=== PATIENT | female | born 1960 | race Caucasian/White ===

== ENCOUNTER → 2017-09-18 10:13 | Outpatient (CLI) | payer OTHER, SELFPAY ==
[2017-09-18 12:48] LABS: Anion Gap 7 (5-15); BUN 22 mg/dL (7-18); BUN/Creat Ratio 16.7 RATIO (10-20); Calcium,Total 8.7 mg/dL (8.5-10.1); Chloride 108 mmol/L (98-107); Creatinine, Serum 1.32 mg/dL (0.55-1.02); EST Glomerular Filtration Rate 44 mL/min (>60); Est Glom Filt Rate - Afr Amer 53 mL/min (>60); Glucose 91 mg/dL (74-106); Potassium 3.9 mmol/L (3.5-5.1); Sodium Level 142 mmol/L (136-145)
== END ==
PROVIDERS: Family Provider Family Medicine; PCP Family Medicine; Visit Provider Family Medicine
DX: I10 Essential (primary) hypertension (principal)
CPT/HCPCS: 36415; 80048

== ENCOUNTER 2017-10-15 12:45 | Observation (INO) | payer OTHER, SELFPAY ==
[2017-10-15] VITALS (15 sets, daily range): BP systolic 105–155; BP diastolic 59–107; PULSE 85–120; RESP 15–20; TEMP 36.1–36.4; O2SAT 94–98; BMI 38.0; BMI 39.9
--- NOTE | 2017-10-15 13:14 | RAD_ITS ---
STUDY: X-RAY CHEST REASON FOR EXAM: Female, 57 years old. Left-sided chest pain. TECHNIQUE: Single AP portable view of the chest. COMPARISON: Comparison is made with prior study dated May 16, 2017. FINDINGS: EKG electrodes are seen. The lungs are clear and expanded. Scattered calcified granulomas. There is no demonstrated pleural abnormality. Normal size heart. Normal mediastinum and praveen. Normal visualized pulmonary arteries. There is atherosclerotic calcification of the aortic arch with tortuosity. Normal visualized thoracic spine. Prior fusion in the lower cervical spine. There is no demonstrated abnormality of the visualized soft tissue structures of the upper abdomen. RAD/Chest 1 View (Portable) IMPRESSION: No acute abnormality is seen. Electronically Signed: Roger Barker MD at 13:49 EDT Tel [phone], Service support ,
--- NOTE | 2017-10-15 13:14 | EKG12_ITS ---
Test Reason : Blood Pressure : / mmHG Vent. Rate : 089 BPM Atrial Rate : 089 BPM P-R Int : 170 ms QRS Dur : 088 ms QT Int : 406 ms P-R-T Axes : 063 031 037 degrees QTc Int : 493 ms Normal sinus rhythm Prolonged QT Abnormal ECG Confirmed by ILSA BE, BRIAN ([id number]), story editor REINIER PENDLETON ([id number]) on 10/17/2017 3:19:08 PM Referred By: CHARMAINE Confirmed By:BRIAN ROSENBAUM MD
[2017-10-15] MEDS: 0.9% Normal Saline 1,000 ML 150 ML IV ×3 (13:23→21:30)
[2017-10-15] MEDS: Aspirin 81 MG TAB.CHEW 324 MG PO (13:23)
[2017-10-15 13:24] LABS: Absolute Lymphocyte Count 1.94 X10^3/ul (0.83-4.51); Absolute Neutrophil Count 4.2 X10^3/uL (2.0-7.7); Basophil# 0.04 X10^3/uL; Basophil% 0.6 % (0-1); Eosinophils% 1.4 % (0-5); Lymphocyte # 1.94 X10^3/ul (4.0); Lymphocyte % 27.8 % (19-41); Mean Corp Hgb Conc 32.5 g/gl (32-36); Mean Corpuscular Hgb 33.2 pg (27.0-32.0); Mean Platelet Vol. 9.2 fl (6.2-12.0); Monocyte# 0.64 X10^3/uL; Monocyte% 9.2 % (0-10); Neutrophil # 4.22 X10^3/uL (2.7-7.7); Neutrophil % 60.6 % (47-70); Platelet Count 228 K/mm3 (150-450); RBC Distribution Width CV 13.3 % (11.6-14.6); RBC Distribution Width SD 48.9 fl (35.1-43.9); Red Blood Count 3.92 M/mm3 (4.2-5.4)
[2017-10-15 13:25] LABS: POSITIVE COUNT NO; POSITIVE DIFFERENTIAL NO; POSITIVE MORPHOLOGY NO
[2017-10-15 13:39] LABS: Anion Gap 5 (5-15); BUN 14 mg/dL (7-18); BUN/Creat Ratio 10.9 RATIO (10-20); Calcium,Total 8.6 mg/dL (8.5-10.1); Chloride 110 mmol/L (98-107); Creatinine, Serum 1.28 mg/dL (0.55-1.02); EST Glomerular Filtration Rate 46 mL/min (>60); Est Glom Filt Rate - Afr Amer 55 mL/min (>60); Estimated Creatinine Clearance 40.11 ml/min; Glucose 146 mg/dL (74-106); Potassium 3.6 mmol/L (3.5-5.1); Sodium Level 145 mmol/L (136-145)
[2017-10-15 13:41] LABS: D-Dimer Quantitative (DVT/PE) 2.41 FEU/ug/m (0.27-0.49)
--- NOTE | 2017-10-15 13:46 | ED.RN ---
LAB CALLED WITH CRITICAL D-DIMER 2.41. DR. NUNEZ INFORMED OF SAME. NO NEW ORDERS AT THIS TIME.
--- NOTE | 2017-10-15 13:49 | CT_ITS ---
STUDY: CTA CHEST REASON FOR EXAM: Female, 57 years old. One month history of intermittent chest pain. History of COPD and emphysema. RADIATION DOSAGE (If Supplied By Facility): CTDIvol = ( 14.59 ) mGy, DLP = ( 643.52 ) mGycm TECHNIQUE: The examination was performed with the intravenous administration of 100CC ml of Isovue 370 contrast material. Post-processing of the angiographic images was performed, with multiplanar reformation and 3D reconstruction. Individualized dose optimization techniques were used for this CT. COMPARISON: Comparison is made with prior examination dated February 03, 2014. FINDINGS: Normal enhancement of the main pulmonary artery and right and left pulmonary arteries. Normal enhancement of the bilateral peripheral pulmonary arteries. There is no demonstrated pulmonary embolism. Normal thoracic aorta and visualized great vessels. There is no demonstrated aortic dissection. Normal heart and pericardium. Normal mediastinum. Normal hilar regions. Normal visualized trachea and bronchi. The lungs are well expanded. There is a 1.9 cm bulla in the posterior aspect of the right middle lobe. This also evidence of a 2.1 cm bulla in the superior aspect of the right lower lobe. A 2.7 cm bulla is seen in the lateral aspect of the right lower lobe as well as several smaller bulla seen in the right lower lobe. Normal pleura. Normal chest wall structures. There are degenerative changes of thoracic spine. Small hiatal hernia. CT/CTA Chest W/WO Contrast IMPRESSION: Bolus changes in the right lung. No acute abnormality is seen. Electronically Signed: Roger Barker MD at 14:56 EDT Tel [phone], Service support ,
--- NOTE | 2017-10-15 15:18 | EKG12_ITS ---
Test Reason : Blood Pressure : / mmHG Vent. Rate : 105 BPM Atrial Rate : 105 BPM P-R Int : 152 ms QRS Dur : 088 ms QT Int : 370 ms P-R-T Axes : 063 049 054 degrees QTc Int : 489 ms Sinus tachycardia Otherwise normal ECG Confirmed by ILSA BE, BRIAN ([id number]), video tape editor REINIER PENDLETON ([id number]) on 10/17/2017 3:29:08 PM Referred By: CHARMAINE Confirmed By:BRIAN ROSENBAUM MD
--- NOTE | 2017-10-15 15:18 | ED.VISSUMM ---
- ER Visit Summary Date of Service: 10/15/17 Chief Complaint: [Chest pain] History of Present Illness: The patient is a 57 F [presents to the emergency department with chief complaint of chest pain that started about a month ago. Patient's been having discomfort intermittently. Patient describes a sharp pain in her left chest that radiates into her left arm and into the left back by her shoulder blade. Patient at times feel short of breath with it and gets diaphoretic. Patient currently rates her pain an 8 out of 10. Patient has not had pain like this before. She denies recent travel or surgery.] Physical Examination: [HEENT-PERRLA, EOMI. Cranial nerves II through XII grossly intact. TMs clear. Mucous membranes moist. No adenopathy. Cardiovascular-regular rate and rhythm without murmur or ectopy Lungs-clear to auscultation, chest wall stable without crepitus or subcu emphysema Abdomen-normoactive bowel sounds, soft, nontender, no rebound or rigidity, no peritoneal signs. Extremities-intact ?4, normal range of motion, normal pulses, atraumatic] Test Results: [EKG obtained on arrival showed a sinus tachycardia with a ventricular rate of 105 bpm with no acute ST segment changes. CBC with differential showed a white blood cell count of 7.0, hemoglobin 13, hematocrit 40, platelets 228. History is unremarkable. Troponin was less than 0.02. D-dimer was elevated 2.41. Chest x-ray showed nothing acute. CTA of the chest showed bullous changes in the right lung otherwise nothing acute. There was no evidence of PE or dissection.] Emergency Department Course and Treatment: [Patient given aspirin in the emergency department as well as sublingual nitroglycerin which gave her minimal relief. Patient had an inch of Nitropaste placed to the anterior chest wall. A repeat EKG will be obtained.] Treatment Plan: [Admit] Disposition: [Admit for further workup and evaluation] Impression: [Chest pain-rule out acute coronary syndrome] This note was generated with [employer] dictation software. It may contain incorrect words, spelling, and punctuation that were not noted in review of the chart prior to signing ED Disposition - Plan for ED Patient: Chief Complaint: Chest Pain Referrals: Hua Mosher MD [Primary Care Provider] -
--- NOTE | 2017-10-15 15:21 | ED.DCSUM_ITS ---
- ER Visit Summary Date of Service: 10/15/17 Chief Complaint: [Chest pain] History of Present Illness: The patient is a 57 F [presents to the emergency department with chief complaint of chest pain that started about a month ago. Patient's been having discomfort intermittently. Patient describes a sharp pain in her left chest that radiates into her left arm and into the left back by her shoulder blade. Patient at times feel short of breath with it and gets diaphoretic. Patient currently rates her pain an 8 out of 10. Patient has not had pain like this before. She denies recent travel or surgery.] Physical Examination: [HEENT-PERRLA, EOMI. Cranial nerves II through XII grossly intact. TMs clear. Mucous membranes moist. No adenopathy. Cardiovascular-regular rate and rhythm without murmur or ectopy Lungs-clear to auscultation, chest wall stable without crepitus or subcu emphysema Abdomen-normoactive bowel sounds, soft, nontender, no rebound or rigidity, no peritoneal signs. Extremities-intact ?4, normal range of motion, normal pulses, atraumatic] Test Results: [EKG obtained on arrival showed a sinus tachycardia with a ventricular rate of 105 bpm with no acute ST segment changes. CBC with differential showed a white blood cell count of 7.0, hemoglobin 13, hematocrit 40, platelets 228. History is unremarkable. Troponin was less than 0.02. D- dimer was elevated 2.41. Chest x-ray showed nothing acute. CTA of the chest showed bullous changes in the right lung otherwise nothing acute. There was no evidence of PE or dissection.] Emergency Department Course and Treatment: [Patient given aspirin in the emergency department as well as sublingual nitroglycerin which gave her minimal relief. Patient had an inch of Nitropaste placed to the anterior chest wall. A repeat EKG will be obtained.] Treatment Plan: [Admit] Disposition: [Admit for further workup and evaluation] Impression: [Chest pain-rule out acute coronary syndrome] This note was generated with [employer] dictation software. It may contain incorrect words, spelling, and punctuation that were not noted in review of the chart prior to signing ED Disposition - Plan for ED Patient: Chief Complaint: Chest Pain Referrals: Hua Mosher MD [Primary Care Provider] -
--- NOTE | 2017-10-15 15:52 | PCM.HP.STD ---
<Neri Mills - Last Filed: 10/15/17 15:56> Problem List (1) Chest pain Status: Acute (2) COPD (chronic obstructive pulmonary disease) Status: Chronic (3) Anxiety Status: Chronic (4) Hyperlipidemia Status: Chronic (5) Hypertension Status: Chronic (6) Obesity (BMI 30-39.9) Status: Chronic (7) Diabetes mellitus, type II Status: Chronic (8) Chronic back pain Status: Chronic (9) CKD (chronic kidney disease) stage 3, GFR 30-59 ml/min Status: Chronic History of Present Illness Date of Admission: 10/15/17 Chief Complaint: chest pain The patient is a 57 year old F who presented to the ED with a chief complaint of chest pain. She has a hx concerning for HTN, DMt2, HLD, emphysema, obesity, and is a former heavy smoker. She has been having intermittent chest pain for the last month, however today it was significantly worse. It is been off and on all day. She describes it as a 8 out of 10 chest pressure located across the left side of her chest with radiation into her back and left arm. It was relieved with nitro from an 8 out of 10 to a 6 out of 10 in the ER. She does have associated shortness of breath, and this morning when he came on she broke out in a sweat. She denied nausea or vomiting. She notes that she is short of breath with activity, chest pain is worse with activity, relieved with rest. She has no prior coronary disease, she last had a stress test 2 years ago prior to her hiatal hernia which was negative. Patient quit smoking approximately 80 days ago, however smoked 1-1/2 packs per day for her whole life since being a teenager. She is currently still having chest pain in the ER. She does not follow with cardiology. She also notes swelling of both of her legs. Father had hx of CAD and ME, mother had severe HTN. She has CKD for which she follows Dr. Cohen. [] Past Medical History Past Medical History (Chronic Problems): Chronic Problems COPD (chronic obstructive pulmonary disease) (Chronic) Anxiety (Chronic) Hyperlipidemia (Chronic) Tobacco use (Chronic) on chantix Hypertension (Chronic) Obesity (BMI 30-39.9) (Chronic) Diabetes mellitus, type II (Chronic) Chronic back pain (Chronic) CKD (chronic kidney disease) stage 3, GFR 30-59 ml/min (Chronic) Allergies No Known Allergies Allergy (Verified 05/16/17 19:08) Home Medications: Ambulatory Orders Medication Instructions Recorded Cholecalciferol (VIT D3) [Vitamin 1,000 unit PO DAILY 10/08/15 D3] Gabapentin [Neurontin] 100 mg PO 4X/DAY 10/08/15 Lisinopril [Zestril] 5 mg PO DAILY 10/08/15 Simvastatin [Zocor] 20 mg PO QHS 10/08/15 Tizanidine HCl 4 mg PO QHS 10/08/15 Trazodone HCl 200 mg PO QHS 08/23/16 Furosemide [Lasix] 20 mg PO DAILY 12/07/16 Hydrocodone Bitart/Apap 5-325 2 tablet PO Q6H PRN PRN 04/23/17 [[place] 5MG-325MG] Hydrocodone Bit/Homatropine 5 ml GT Q6H PRN PRN #20 udc 05/07/17 [Hycodan Syrup] Duloxetine Hcl [Cymbalta] 60 mg PO DAILY 10/15/17 Linagliptin [Tradjenta] 5 mg PO DAILY 10/15/17 Meloxicam [Mobic] 15 mg PO DAILY 10/15/17 Surgical History: - - Cervical spine surgery, BLTL, L shoulder surgery, R heel spur removal, hiatal hernia repair with mesh Psychiatric History: Anxiety, Depression 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 Denies: Chest Tightness, Heaviness, Light Headedness, Palpitations, Syncope Respiratory: Reports: Shortness of Breath, Shortness of breath at rest, Shortness of breath upon exertion. Denies: Cough, Sputum production Gastrointestinal: Denies: Abdominal Pain, Nausea, Vomiting Genitourinary: Denies: Dysuria Musculoskeletal: Denies: Joint Pain, Joint Tenderness Skin: Denies: Rash, Wounds Neurological: Denies: Numbness, Tingling, Focal weakness Psychiatric: Denies: Anxiety, Depression, Homicidal Ideations, Suicidal Ideations Hematologic/ Lymphatic: Denies: Easy Bruising, Easy Bleeding VTE Information - Inpt Only VTE Present on Admission: No VTE Mechan Device Prophylaxis: SCD's VTE Pharm Prophylaxis ordered?: Yes Patient Problems: Active and Suspected Problems Chest pain (Acute) - Physical Exam General: Alert, Oriented x3, Cooperative HEENT: Atraumatic, PERRLA, EOMI, Normocephalic Neck: Supple, No JVD, Negative Carotid Bruits Lungs: Clear to auscultation, Normal air movement Cardiovascular: Regular rate, No murmurs Abdomen: Bowel Sounds Present, Soft, Non Tender, Obese Extremities: Capillary Refill Less than 3 Seconds, Edema - 1-2+ pitting edema bilateral lower extremities Skin: No rashes, No breakdown Musculoskeletal: No Tenderness to Palpation of Joints or Extremities Neurological: Cranial nerves II-XII grossly intact Psych/Mental Status: Normal Affect, Appropriate Vital Signs Temp Pulse Resp BP Pulse Ox 97 F L 85 16 105/75 97 10/15/17 12:46 10/15/17 14:24 10/15/17 14:24 10/15/17 14:24 10/15/17 14:24 Assessment/Plan Active and Suspected Problems Chest pain (Acute) 1. Chest pain - EKG with sinus tach. Troponin and CXR neg. D dimer elevated, CTA negative for PE. Risk factors include HTN, HLD, obesity, DMt2, heavy smoking hx, + family hx, and a concerning HPI. Admit to PCU for cardiac monitoring, cycle troponin, chemical stress test in AM repeat AM EKG, check TSH and mag, check A1C. 2. BLE edema with elevated D dimer - venous duplex to r/o DVT. CTA neg for PE. 3. DMt2 - check A1C, SSI. Hold orals. 4. Hx Emphysema - CTA with bulla. PRN aerosols. 5. CKDIII - trend, avoid nephrotoxins. Follows Dr. Cohen with [facility]. 6. Obesity - dietary consult 7. Former smoker - quit 80 days ago - smoked about 1.5 ppd, smoked since teenager 8. HLD - on statin 9. Anxiety - continue home meds 10. Chronic back pain - continue home meds DVT ppx: heparin This patient was seen by Neri Mills PA-C under the supervision of Doctor Al. <JohnathanhenryWong - Last Filed: 10/15/17 16:14> History of Present Illness The patient is a 57 year old F [] Past Medical History Allergies No Known Allergies Allergy (Verified 05/16/17 19:08) - Physical Exam Vital Signs Temp Pulse Resp BP Pulse Ox 97 F L 97 16 126/100 H 97 10/15/17 12:46 10/15/17 16:03 10/15/17 14:24 10/15/17 16:03 10/15/17 14:24 Assessment/Plan Hospitalist note: I am seeing this patient in conjunction with Neri Mills. I independently seen and examined the patient. History and physical, laboratory data and imaging studies reviewed and I agree with above admission and treatment plan. Patient was admitted for exertional chest pain or shortness of breath that has been going on for the last month. It got worse over the last couple of days, relieved by nitro in the emergency room. At this time, her vital signs are stable. - Physical Exam General: Alert, Oriented x3, Cooperative, No apparent distress. HEENT: Atraumatic, PERRLA, EOMI. Neck: Supple, No JVD, Negative Carotid Bruits, Trachea Midline, Thyroid Normal. Lungs: Diminished breath sounds bilateral, normal air movement, No rhonchi, No wheeze, No rales. Cardiovascular: Regular rate, Regular Rhythm, Normal S1, Normal S2, PMI Normal. Abdomen: Bowel Sounds Present, Soft, Non Tender, Non-Distended, No Hepato-splenomegaly. Extremities: No clubbing, No cyanosis, No edema Skin: No rashes, No breakdown Neurological: Neuro grossly intact Vital Signs are stable. Assessment and plan: #1 exertional chest pain/shortness of breath: With history of hypertension, diabetes and hyperlipidemia as well as history of smoking. Initial EKG revealed normal sinus rhythm, prolonged QTC, no acute ischemic changes. Troponin is negative. Chest x-ray and CTA chest was unremarkable. Plan: Admit to PCU for observation, cardiac monitoring, serial cardiac enzymes, repeat EKG tomorrow morning, nuclear stress test tomorrow morning if cardiac enzymes are negative. #2 elevated d-dimer: Unclear etiology, CTA chest was negative for PE or dissection. #3 other chronic medical problems: Hypertension, diabetes, hyperlipidemia, continue home medications as above. This note was generated with [employer] software. It may contain incorrect words, spelling, and punctuation that were not noted in checking the note before signing. Code Visit OBSV E&M: 33010 Initial observation care L3
--- NOTE | 2017-10-15 15:55 | HP.PCM_ITS ---
<Neri Mills - Last Filed: 10/15/17 15:56> Problem List (1) Chest pain Status: Acute (2) COPD (chronic obstructive pulmonary disease) Status: Chronic (3) Anxiety Status: Chronic (4) Hyperlipidemia Status: Chronic (5) Hypertension Status: Chronic (6) Obesity (BMI 30-39.9) Status: Chronic (7) Diabetes mellitus, type II Status: Chronic (8) Chronic back pain Status: Chronic (9) CKD (chronic kidney disease) stage 3, GFR 30-59 ml/min Status: Chronic History of Present Illness Date of Admission: 10/15/17 Chief Complaint: chest pain The patient is a 57 year old F who presented to the ED with a chief complaint of chest pain. She has a hx concerning for HTN, DMt2, HLD, emphysema, obesity, and is a former heavy smoker. She has been having intermittent chest pain for the last month, however today it was significantly worse. It is been off and on all day. She describes it as a 8 out of 10 chest pressure located across the left side of her chest with radiation into her back and left arm. It was relieved with nitro from an 8 out of 10 to a 6 out of 10 in the ER. She does have associated shortness of breath, and this morning when he came on she broke out in a sweat. She denied nausea or vomiting. She notes that she is short of breath with activity, chest pain is worse with activity, relieved with rest. She has no prior coronary disease, she last had a stress test 2 years ago prior to her hiatal hernia which was negative. Patient quit smoking approximately 80 days ago, however smoked 1-1/2 packs per day for her whole life since being a teenager. She is currently still having chest pain in the ER. She does not follow with cardiology. She also notes swelling of both of her legs. Father had hx of CAD and VA, mother had severe HTN. She has CKD for which she follows Dr. Cohen. [] Past Medical History Past Medical History (Chronic Problems): Chronic Problems COPD (chronic obstructive pulmonary disease) (Chronic) Anxiety (Chronic) Hyperlipidemia (Chronic) Tobacco use (Chronic) on chantix Hypertension (Chronic) Obesity (BMI 30-39.9) (Chronic) Diabetes mellitus, type II (Chronic) Chronic back pain (Chronic) CKD (chronic kidney disease) stage 3, GFR 30-59 ml/min (Chronic) Allergies No Known Allergies Allergy (Verified 05/16/17 19:08) Home Medications: Ambulatory Orders Medication Instructions Recorded Cholecalciferol (VIT D3) [Vitamin 1,000 unit PO DAILY 10/08/15 D3] Gabapentin [Neurontin] 100 mg PO 4X/DAY 10/08/15 Lisinopril [Zestril] 5 mg PO DAILY 10/08/15 Simvastatin [Zocor] 20 mg PO QHS 10/08/15 Tizanidine HCl 4 mg PO QHS 10/08/15 Trazodone HCl 200 mg PO QHS 08/23/16 Furosemide [Lasix] 20 mg PO DAILY 12/07/16 Hydrocodone Bitart/Apap 5-325 2 tablet PO Q6H PRN PRN 04/23/17 [[place] 5MG-325MG] Hydrocodone Bit/Homatropine 5 ml GT Q6H PRN PRN #20 udc 05/07/17 [Hycodan Syrup] Duloxetine Hcl [Cymbalta] 60 mg PO DAILY 10/15/17 Linagliptin [Tradjenta] 5 mg PO DAILY 10/15/17 Meloxicam [Mobic] 15 mg PO DAILY 10/15/17 Surgical History: - - Cervical spine surgery, BLTL, L shoulder surgery, R heel spur removal, hiatal hernia repair with mesh Psychiatric History: Anxiety, Depression 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 Denies: Chest Tightness, Heaviness, Light Headedness, Palpitations, Syncope Respiratory: Reports: Shortness of Breath, Shortness of breath at rest, Shortness of breath upon exertion. Denies: Cough, Sputum production Gastrointestinal: Denies: Abdominal Pain, Nausea, Vomiting Genitourinary: Denies: Dysuria Musculoskeletal: Denies: Joint Pain, Joint Tenderness Skin: Denies: Rash, Wounds Neurological: Denies: Numbness, Tingling, Focal weakness Psychiatric: Denies: Anxiety, Depression, Homicidal Ideations, Suicidal Ideations Hematologic/ Lymphatic: Denies: Easy Bruising, Easy Bleeding VTE Information - Inpt Only VTE Present on Admission: No VTE Mechan Device Prophylaxis: SCD's VTE Pharm Prophylaxis ordered?: Yes Patient Problems: Active and Suspected Problems Chest pain (Acute) - Physical Exam General: Alert, Oriented x3, Cooperative HEENT: Atraumatic, PERRLA, EOMI, Normocephalic Neck: Supple, No JVD, Negative Carotid Bruits Lungs: Clear to auscultation, Normal air movement Cardiovascular: Regular rate, No murmurs Abdomen: Bowel Sounds Present, Soft, Non Tender, Obese Extremities: Capillary Refill Less than 3 Seconds, Edema - 1-2+ pitting edema bilateral lower extremities Skin: No rashes, No breakdown Musculoskeletal: No Tenderness to Palpation of Joints or Extremities Neurological: Cranial nerves II-XII grossly intact Psych/Mental Status: Normal Affect, Appropriate Vital Signs Temp Pulse Resp BP Pulse Ox 97 F L 85 16 105/75 97 10/15/17 12:46 10/15/17 14:24 10/15/17 14:24 10/15/17 14:24 10/15/17 14:24 Assessment/Plan Active and Suspected Problems Chest pain (Acute) 1. Chest pain - EKG with sinus tach. Troponin and CXR neg. D dimer elevated, CTA negative for PE. Risk factors include HTN, HLD, obesity, DMt2, heavy smoking hx, + family hx, and a concerning HPI. Admit to PCU for cardiac monitoring, cycle troponin, chemical stress test in AM repeat AM EKG, check TSH and mag, check A1C. 2. BLE edema with elevated D dimer - venous duplex to r/o DVT. CTA neg for PE. 3. DMt2 - check A1C, SSI. Hold orals. 4. Hx Emphysema - CTA with bulla. PRN aerosols. 5. CKDIII - trend, avoid nephrotoxins. Follows Dr. Cohen with [facility]. 6. Obesity - dietary consult 7. Former smoker - quit 80 days ago - smoked about 1.5 ppd, smoked since teenager 8. HLD - on statin 9. Anxiety - continue home meds 10. Chronic back pain - continue home meds DVT ppx: heparin This patient was seen by Neri Mills PA-C under the supervision of Doctor lA. <JohnathanhenryWong - Last Filed: 10/15/17 16:14> History of Present Illness The patient is a 57 year old F [] Past Medical History Allergies No Known Allergies Allergy (Verified 05/16/17 19:08) - Physical Exam Vital Signs Temp Pulse Resp BP Pulse Ox 97 F L 97 16 126/100 H 97 10/15/17 12:46 10/15/17 16:03 10/15/17 14:24 10/15/17 16:03 10/15/17 14:24 Assessment/Plan Hospitalist note: I am seeing this patient in conjunction with Neri Mills. I independently seen and examined the patient. History and physical, laboratory data and imaging studies reviewed and I agree with above admission and treatment plan. Patient was admitted for exertional chest pain or shortness of breath that has been going on for the last month. It got worse over the last couple of days, relieved by nitro in the emergency room. At this time, her vital signs are stable. - Physical Exam General: Alert, Oriented x3, Cooperative, No apparent distress. HEENT: Atraumatic, PERRLA, EOMI. Neck: Supple, No JVD, Negative Carotid Bruits, Trachea Midline, Thyroid Normal. Lungs: Diminished breath sounds bilateral, normal air movement, No rhonchi, No wheeze, No rales. Cardiovascular: Regular rate, Regular Rhythm, Normal S1, Normal S2, PMI Normal. Abdomen: Bowel Sounds Present, Soft, Non Tender, Non-Distended, No Hepato- splenomegaly. Extremities: No clubbing, No cyanosis, No edema Skin: No rashes, No breakdown Neurological: Neuro grossly intact Vital Signs are stable. Assessment and plan: #1 exertional chest pain/shortness of breath: With history of hypertension, diabetes and hyperlipidemia as well as history of smoking. Initial EKG revealed normal sinus rhythm, prolonged QTC, no acute ischemic changes. Troponin is negative. Chest x-ray and CTA chest was unremarkable. Plan: Admit to PCU for observation, cardiac monitoring, serial cardiac enzymes, repeat EKG tomorrow morning, nuclear stress test tomorrow morning if cardiac enzymes are negative. #2 elevated d-dimer: Unclear etiology, CTA chest was negative for PE or dissection. #3 other chronic medical problems: Hypertension, diabetes, hyperlipidemia, continue home medications as above. This note was generated with shopandsaveation software. It may contain incorrect words, spelling, and punctuation that were not noted in checking the note before signing. Code Visit OBSV E&M: 11896 Initial observation care L3
[2017-10-15] MEDS: fentaNYL 100 MCG/2 ML Ampul 25 MCG IV (15:59)
[2017-10-15] MEDS: Nitroglycerin Oint 1 INCH PACKET TRANSDERM. (15:59)
--- NOTE | 2017-10-15 16:12 | VDLE_ITS ---
Reason For Study: elevated D-Dimer RIGHT LEFT GSV is normal. GSV is normal. CFV is compressible, spontaneous, phasic, CFV is compressible, spontaneous, phasic, competent and demonstrates normal competent, and demonstrates normal augmentation. augmentation. FV is compressible, spontaneous, phasic, FV is compressible, spontaneous, phasic, competent and demonstrates normal competent and demonstrates normal augmentation. augmentation. POP V is compressible, spontaneous, phasic, POP V is compressible, spontaneous, phasic, competent and demonstrates normal competent and demonstrates normal augmentation. augmentation. T/P Trunk is compressible. T/P Trunk is compressible. PTV is compressible. PTV is compressible. RT PerV is compressible. LT PerV is compressible. Procedure Exam performed portable in patient room. The exam was diagnostic. A preliminary report was called and/or faxed to Hanane RODRIGUEZ. Interpretation Summary No evidence for acute deep venous thrombosis bilateral lower extremities with patent and compressible bilateral great saphenous veins. Ordering Physician: Neri Mills Performed By: Gatito Alvarez RVT
[2017-10-15 17:05] LABS: Magnesium 1.9 mg/dL (1.6-2.6); Thyroid Stim Hormone (TSH) 1.08 uIU/mL (0.358-3.74)
[2017-10-15 17:24] LABS: Hemoglobin A1c 6.6 % (4.2-6.3)
[2017-10-15 17:46] LABS: Bedside Glucose 137 mg/dL (70-110)
[2017-10-15] MEDS: Heparin Injection 5,000 UNITS/ML Syringe 5000 UNITS SC (21:43)
[2017-10-15 22:56] LABS: Bedside Glucose 130 mg/dL (70-110)
[2017-10-16] VITALS (7 sets, daily range): BP systolic 101–137; BP diastolic 58–83; PULSE 80–97; RESP 12–18; TEMP 36.4–36.8; O2SAT 95–96
[2017-10-16] MEDS: Gabapentin 100 MG Capsule PO ×3 (00:29→11:01)
[2017-10-16] MEDS: tiZANidine HCl 2 MG Tablet 4 MG PO (00:29)
[2017-10-16] MEDS: Atorvastatin Calcium 10 MG Tablet PO (00:29)
--- NOTE | 2017-10-16 03:28 | NURSING ---
Pt complaining that CP is worse. RN called RT Madeleine to request AM EKG be taken early.
[2017-10-16 04:52] LABS: Cholesterol 115 mg/dL (200); High Density Lipoprotein 43 mg/dL; Triglycerides 101 mg/dL; Very Low Density Lipoprotein 20 mg/dL (5-40)
[2017-10-16] MEDS: Aspirin 81 MG TAB.CHEW PO (05:39)
--- NOTE | 2017-10-16 05:55 | EKG12_ITS ---
Test Reason : CP Blood Pressure : / mmHG Vent. Rate : 088 BPM Atrial Rate : 088 BPM P-R Int : 158 ms QRS Dur : 086 ms QT Int : 396 ms P-R-T Axes : 066 048 054 degrees QTc Int : 479 ms Normal sinus rhythm Normal ECG When compared with ECG of 15-OCT-2017 15:35, MANUAL COMPARISON REQUIRED, DATA IS UNCONFIRMED Confirmed by ILSA BE, BRIAN ([id number]), general expeditor REINIER PENDLETON ([id number]) on 10/19/2017 1:54:42 PM Referred By: CAROLYNE Confirmed By:BRIAN ROSENBAUM MD
[2017-10-16 06:35] LABS: Absolute Lymphocyte Count 2.14 X10^3/ul (0.83-4.51); Absolute Neutrophil Count 3.2 X10^3/uL (2.0-7.7); Basophil# 0.03 X10^3/uL; Basophil% 0.5 % (0-1); Eosinophil# 0.11 X10^3/uL; Eosinophils% 1.8 % (0-5); Hematocrit 37.6 % (37-47); Hemoglobin 11.6 g/dl (12.0-15.0); Lymphocyte # 2.14 X10^3/ul (4.0); Lymphocyte % 35.5 % (19-41); Mean Corp Hgb Conc 30.9 g/gl (32-36); Mean Corpuscular Hgb 31.8 pg (27.0-32.0); Mean Platelet Vol. 9.8 fl (6.2-12.0); Monocyte# 0.54 X10^3/uL; Neutrophil # 3.18 X10^3/uL (2.7-7.7); Neutrophil % 52.9 % (47-70); Platelet Count 209 K/mm3 (150-450); RBC Distribution Width CV 13.8 % (11.6-14.6); RBC Distribution Width SD 51.7 fl (35.1-43.9); Red Blood Count 3.65 M/mm3 (4.2-5.4)
[2017-10-16 06:37] LABS: POSITIVE COUNT NO; POSITIVE DIFFERENTIAL NO; POSITIVE MORPHOLOGY NO
[2017-10-16 06:40] LABS: Prothrombin Time (Protime)PT. 13.3 SECONDS (11.7-14.9)
[2017-10-16 06:41] LABS: Partial Thromboplast Time 29.2 Seconds (24.1-36.2)
[2017-10-16 06:53] LABS: Anion Gap 6 (5-15); BUN 11 mg/dL (7-18); BUN/Creat Ratio 9.3 RATIO (10-20); Chloride 115 mmol/L (98-107); Creatinine, Serum 1.18 mg/dL (0.55-1.02); EST Glomerular Filtration Rate 50 mL/min (>60); Est Glom Filt Rate - Afr Amer 61 mL/min (>60); Estimated Creatinine Clearance 43.51 ml/min; Glucose 127 mg/dL (74-106); Potassium 4.2 mmol/L (3.5-5.1); Sodium Level 150 mmol/L (136-145)
[2017-10-16 07:06] LABS: Bedside Glucose 142 mg/dL (70-110)
[2017-10-16] MEDS: HYDROcodone Bitartrate/Apap 5/325 Tablet PO (10:59)
[2017-10-16 11:21] LABS: Bedside Glucose 92 mg/dL (70-110)
--- NOTE | 2017-10-16 12:40 | STRESSREP ---
Stress Test Report Pharmacologic myocardial perfusion stress test. 57-year-old lady with a history of chest pain. Stress protocol: Resting EKG demonstrates normal sinus rhythm with a rate of 81 bpm. Normal intervals noted. Resting blood pressure is 112/74 mmHg. 0.4 mg of regadenoson was infused per usual protocol followed by rapid intravenous saline flush injection. Continuous EKG monitoring was performed. At rest there were no ST or T-wave changes noted suggest abnormal flow reserve and at peak infusion no ST or T-wave changes were noted suggest abnormal flow reserve. The resting blood pressure is 112/74 with a final blood pressure 110/78. No clinical angina was noted. Myocardial perfusion protocol. 14.8 mCi of technetium 99m sestamibi was injected at rest. 0.4 mg of adenosine was infused per usual protocol peak infusion 44.5 mCi of technetium 99m sestamibi was injected. Stress images were obtained stress and rest images were reconstructed and compared in the short axis vertical long and horizontal long axis. Gated images were also obtained. Fusion SPECT analysis: Review of the stress images demonstrate normal uptake of tracer noted in all areas of the myocardium. The resting images similarly demonstrate normal uptake of tracer noted in all areas of the myocardium. No areas of reversibility are noted suggest ischemia and no previous infarct is noted. Gated SPECT analysis: The gated ejection fraction is noted to be 70%. Conclusion: Normal pharmacologic myocardial perfusion stress test. Preserved ejection fraction.
[2017-10-16] MEDS: Gabapentin 300 MG Capsule PO (16:09)
[2017-10-16 16:50] LABS: Bedside Glucose 111 mg/dL (70-110)
--- NOTE | 2017-10-16 17:33 | PCM.DC ---
- Discharge Diagnoses Current Active Problems: Current Active and Chronic Problems Chest pain (Acute) You will use the following diet at home:: Calorie/Carbohydrate Controlled (specify 1200, 1400, etc), Cardiac Your food should be the consistency of: Regular Your liquids should be the consistency of: Regular/Thin Discharge Activity: Return to Normal Activity, May not drive while taking narcotic pain medications. Lifting Restrictions: Do not lift more than 5 pounds. Do not lift anything above your head. Ext Call your doctor if you observe: Fever of 101 or Higher, Inability to urinate, Inability to have a bowel movement, Swelling in the ankles, - - weakness in your arms, worsening pain despite medication Additional Instructions: I think the pain in the upper left chest and the left arm is due to nerve compression. Conservative treatment options include, physical therapy, a short course of Prednisone to decrease inflammation, and epidural injection, increasing the Gabapentin and muscle relaxation. Since you do not want prednisone and you feel the epidurals don't help and you are already on a muscle relaxer that leaves increasing the Gabapentin and phsical therapy. I have changed the dose of the Gabapentin to 300 mg Twice a day and 600 mg at bedtime. I am also giving you a referral for PT. Keep your appt with Dr. Jauregui on sunday and if things do not get better with conservative treatment you will likely need a MRI and return visit to Dr. Han. Allergies/Adverse Reactions: Allergies No Known Allergies Allergy (Verified 05/16/17 19:08) Medications to take at Discharge Cholecalciferol (VIT D3) [Vitamin D3] 1,000 unit PO DAILY 10/08/15 Lisinopril [Zestril] 5 mg PO DAILY 10/08/15 Simvastatin [Zocor] 20 mg PO QHS 10/08/15 Tizanidine HCl 4 mg PO QHS 10/08/15 Trazodone HCl 200 mg PO QHS 08/23/16 Furosemide [Lasix] 20 mg PO DAILY 12/07/16 Hydrocodone Bitart/Apap 5-325 [[place] 5/325] 0.5 - 2 tablet PO Q6H PRN PRN 04/23/17 Bisacodyl [Dulcolax] 5 mg PO DAILY PRN 10/15/17 Duloxetine Hcl [Cymbalta] 60 mg PO DAILY 10/15/17 Linagliptin [Tradjenta] 5 mg PO DAILY 10/15/17 Meloxicam [Mobic] 7.5 mg PO DAILY 10/15/17 Gabapentin [Neurontin] 300 mg PO UD #120 cap 10/16/17 The following prescriptions were given: Gabapentin [Neurontin] 300 mg PO UD #120 cap Primary Care Physician: Hua Mosher MD [Primary Care Provider] - Please follow up with your Primary Care Physician in: 7-10 days Please Follow Up With: Adair Jauregui MD When: has appt Sunday Please Follow Up With: Ruby Han MD When: as needed if the pain in the left arm does not get better Proposed Discharge Date: 10/16/17
--- NOTE | 2017-10-16 17:44 | DCINST_ITS ---
- Discharge Diagnoses Current Active Problems: Current Active and Chronic Problems Chest pain (Acute) You will use the following diet at home:: Calorie/Carbohydrate Controlled ( specify 1200, 1400, etc), Cardiac Your food should be the consistency of: Regular Your liquids should be the consistency of: Regular/Thin Discharge Activity: Return to Normal Activity, May not drive while taking narcotic pain medications. Lifting Restrictions: Do not lift more than 5 pounds. Do not lift anything above your head. Ext Call your doctor if you observe: Fever of 101 or Higher, Inability to urinate, Inability to have a bowel movement, Swelling in the ankles, - - weakness in your arms, worsening pain despite medication Additional Instructions: I think the pain in the upper left chest and the left arm is due to nerve compression. Conservative treatment options include, physical therapy, a short course of Prednisone to decrease inflammation, and epidural injection, increasing the Gabapentin and muscle relaxation. Since you do not want prednisone and you feel the epidurals don't help and you are already on a muscle relaxer that leaves increasing the Gabapentin and phsical therapy. I have changed the dose of the Gabapentin to 300 mg Twice a day and 600 mg at bedtime. I am also giving you a referral for PT. Keep your appt with Dr. Jauregui on sunday and if things do not get better with conservative treatment you will likely need a MRI and return visit to Dr. Han. Allergies/Adverse Reactions: Allergies No Known Allergies Allergy (Verified 05/16/17 19:08) Medications to take at Discharge Cholecalciferol (VIT D3) [Vitamin D3] 1,000 unit PO DAILY 10/08/15 Lisinopril [Zestril] 5 mg PO DAILY 10/08/15 Simvastatin [Zocor] 20 mg PO QHS 10/08/15 Tizanidine HCl 4 mg PO QHS 10/08/15 Trazodone HCl 200 mg PO QHS 08/23/16 Furosemide [Lasix] 20 mg PO DAILY 12/07/16 Hydrocodone Bitart/Apap 5-325 [[place] 5/325] 0.5 - 2 tablet PO Q6H PRN PRN Bisacodyl [Dulcolax] 5 mg PO DAILY PRN 10/15/17 Duloxetine Hcl [Cymbalta] 60 mg PO DAILY 10/15/17 Linagliptin [Tradjenta] 5 mg PO DAILY 10/15/17 Meloxicam [Mobic] 7.5 mg PO DAILY 10/15/17 Gabapentin [Neurontin] 300 mg PO UD #120 cap 10/16/17 The following prescriptions were given: Gabapentin [Neurontin] 300 mg PO UD #120 cap Primary Care Physician: Hua Mosher MD [Primary Care Provider] - Please follow up with your Primary Care Physician in: 7-10 days Please Follow Up With: Adair Jauregui MD When: has appt Sunday Please Follow Up With: Ruby Han MD When: as needed if the pain in the left arm does not get better Proposed Discharge Date: 10/16/17
--- NOTE | 2017-10-16 17:48 | PCM.DC.SUM ---
Discharge Date and Diagnosis - Problem List Patient Problems: Active and Suspected Problems Cervical radiculitis (Acute) Chest pain (Acute) Date of Admission: 10/15/17 Date of Discharge: 10/16/17 - Primary Discharge Diagnosis Active and Suspected Problems Chest pain (Acute) - non-cardiac Cervical radiculitis (Acute) - Secondary Discharge Diagnosis Chronic Problems Cervical vertebral fusion (Chronic) X 2 levels Fibromyalgia (Chronic) COPD (chronic obstructive pulmonary disease) (Chronic) Anxiety (Chronic) Hyperlipidemia (Chronic) Tobacco use (Chronic) on chantix Hypertension (Chronic) Obesity (BMI 30-39.9) (Chronic) Diabetes mellitus, type II (Chronic) Chronic back pain (Chronic) CKD (chronic kidney disease) stage 3, GFR 30-59 ml/min (Chronic) Hospital Course and Treatment Imaging Results: Clinical Impression(s) from Imaging Studies Chest X-Ray 10/15/17 13:14 IMPRESSION: No acute abnormality is seen. Electronically Signed: Roger Barker MD at 13:49 EDT Tel [phone], Service support , Chest CTA 10/15/17 13:49 IMPRESSION: Bolus changes in the right lung. No acute abnormality is seen. Electronically Signed: Roger Barker MD at 14:56 EDT Tel [phone], Service support , Laboratory Tests 10/15/17 10/15/17 10/15/17 13:15 13:15 13:15 WBC 7.0 RBC 3.92 L Hgb 13.0 Hct 40.0 MCV 102.0 H MCH 33.2 H MCHC 32.5 RDW 13.3 RDW Differential 48.9 H Plt Count 228 MPV 9.2 Immature Gran % (Auto) 0.400 Neut % (Auto) 60.6 Lymph % (Auto) 27.8 [place] % (Auto) 9.2 Eos % (Auto) 1.4 Baso % (Auto) 0.6 Absolute Neuts (auto) 4.2 Absolute Lymphs (auto) 1.94 Total Counted Not Reportable PT INR APTT D-Dimer Quant (PE/DVT) 2.41 H* Sodium 145 Potassium 3.6 Chloride 110 H Carbon Dioxide 30.0 Anion Gap 5 BUN 14 Creatinine 1.28 H Estim Creat Clear Calc 40.11 Est GFR (MDRD) Af Amer 55 L Est GFR (MDRD) Non-Af 46 L BUN/Creatinine Ratio 10.9 Glucose 146 H Hemoglobin A1c Calcium 8.6 Magnesium Troponin I < 0.02 Triglycerides Cholesterol LDL Cholesterol VLDL Cholesterol HDL Cholesterol TSH POC Glucose 10/15/17 10/15/17 10/15/17 13:15 13:15 17:40 WBC RBC Hgb Hct MCV MCH MCHC RDW RDW Differential Plt Count MPV Immature Gran % (Auto) Neut % (Auto) Lymph % (Auto) [place] % (Auto) Eos % (Auto) Baso % (Auto) Absolute Neuts (auto) Absolute Lymphs (auto) Total Counted PT INR APTT D-Dimer Quant (PE/DVT) Sodium Potassium Chloride Carbon Dioxide Anion Gap BUN Creatinine Estim Creat Clear Calc Est GFR (MDRD) Af Amer Est GFR (MDRD) Non-Af BUN/Creatinine Ratio Glucose Hemoglobin A1c 6.6 H Calcium Magnesium 1.9 Troponin I < 0.02 Triglycerides Cholesterol LDL Cholesterol VLDL Cholesterol HDL Cholesterol TSH 1.08 POC Glucose 10/15/17 10/15/17 10/15/17 17:41 20:55 21:35 WBC RBC Hgb Hct MCV MCH MCHC RDW RDW Differential Plt Count MPV Immature Gran % (Auto) Neut % (Auto) Lymph % (Auto) [place] % (Auto) Eos % (Auto) Baso % (Auto) Absolute Neuts (auto) Absolute Lymphs (auto) Total Counted PT INR APTT D-Dimer Quant (PE/DVT) Sodium Potassium Chloride Carbon Dioxide Anion Gap BUN Creatinine Estim Creat Clear Calc Est GFR (MDRD) Af Amer Est GFR (MDRD) Non-Af BUN/Creatinine Ratio Glucose Hemoglobin A1c Calcium Magnesium Troponin I < 0.02 Triglycerides Cholesterol LDL Cholesterol VLDL Cholesterol HDL Cholesterol TSH POC Glucose 137 H 130 H 10/16/17 10/16/17 10/16/17 04:00 04:00 05:36 WBC RBC Hgb Hct MCV MCH MCHC RDW RDW Differential Plt Count MPV Immature Gran % (Auto) Neut % (Auto) Lymph % (Auto) [place] % (Auto) Eos % (Auto) Baso % (Auto) Absolute Neuts (auto) Absolute Lymphs (auto) Total Counted PT INR APTT D-Dimer Quant (PE/DVT) Sodium Potassium Chloride Carbon Dioxide Anion Gap BUN Creatinine Estim Creat Clear Calc Est GFR (MDRD) Af Amer Est GFR (MDRD) Non-Af BUN/Creatinine Ratio Glucose Hemoglobin A1c Calcium Magnesium Troponin I < 0.02 Triglycerides 101 Cholesterol 115 LDL Cholesterol 52 VLDL Cholesterol 20 HDL Cholesterol 43 TSH POC Glucose 142 H 10/16/17 10/16/17 10/16/17 05:52 05:52 05:52 WBC 6.0 RBC 3.65 L Hgb 11.6 L Hct 37.6 MCV 103.0 H MCH 31.8 MCHC 30.9 L RDW 13.8 RDW Differential 51.7 H Plt Count 209 MPV 9.8 Immature Gran % (Auto) 0.300 Neut % (Auto) 52.9 Lymph % (Auto) 35.5 [place] % (Auto) 9.0 Eos % (Auto) 1.8 Baso % (Auto) 0.5 Absolute Neuts (auto) 3.2 Absolute Lymphs (auto) 2.14 Total Counted Not Reportable PT 13.3 INR 1.0 APTT 29.2 D-Dimer Quant (PE/DVT) Sodium 150 H Potassium 4.2 Chloride 115 H Carbon Dioxide 29.0 Anion Gap 6 BUN 11 Creatinine 1.18 H Estim Creat Clear Calc 43.51 Est GFR (MDRD) Af Amer 61 Est GFR (MDRD) Non-Af 50 L BUN/Creatinine Ratio 9.3 L Glucose 127 H Hemoglobin A1c Calcium 8.0 L Magnesium Troponin I Triglycerides Cholesterol LDL Cholesterol VLDL Cholesterol HDL Cholesterol TSH POC Glucose 10/16/17 10/16/17 11:11 16:12 WBC RBC Hgb Hct MCV MCH MCHC RDW RDW Differential Plt Count MPV Immature Gran % (Auto) Neut % (Auto) Lymph % (Auto) [place] % (Auto) Eos % (Auto) Baso % (Auto) Absolute Neuts (auto) Absolute Lymphs (auto) Total Counted PT INR APTT D-Dimer Quant (PE/DVT) Sodium Potassium Chloride Carbon Dioxide Anion Gap BUN Creatinine Estim Creat Clear Calc Est GFR (MDRD) Af Amer Est GFR (MDRD) Non-Af BUN/Creatinine Ratio Glucose Hemoglobin A1c Calcium Magnesium Troponin I Triglycerides Cholesterol LDL Cholesterol VLDL Cholesterol HDL Cholesterol TSH POC Glucose 92 111 H Operations: None Procedures: Stress test - Pharmacologic nuclear stress test-negative for ischemia, gated nuclear ejection fraction of 70% Summary of Care Provided: The patient is a 57 year old F with a past medical history of COPD, anxiety/depression, hyperlipidemia, hypertension, morbid obesity, diabetes mellitus type 2, chronic renal failure stage III, tobacco dependence, fibromyalgia, hx of cervical fusion X 2 levels in 2017 who presented to the emergency department at [facility] on 10/15/2017 complaining of chest pain. The chest pain started on 10/14/2017 and it started while she was resting. Pain was located in the left upper chest and she also had pain down her left arm. She also complained of numbness in her fingers. She had no shortness of breath, no nausea and no diaphoresis. She went to bed and took 2 sleeping pills and a Vicodin and she was able to sleep through the night. The following morning when she awoke she continued to have chest pain. CTA of the chest in the emergency room was negative. Chest x-ray revealed no infiltrates, pleural effusions or pulmonary vascular congestion. Troponin was less than 0.02 and the EKG showed sinus tachycardia with no suspicious ST or T-wave changes. She was admitted to a monitored bed on PCU and serial cardiac enzymes were obtained and they were negative. Lipid panel showed a total cholesterol of 115 with an LDL of 52 and an HDL of 43. Triglycerides were 101. Sodium is high at 150 and the creatinine was elevated at 1.18 and this may be related to the diuretic therapy. Pharmacologic nuclear stress test was done on 10/16/2017 and showed no evidence of ischemia and the gated nuclear ejection fraction was 70%. She continues to complain of left upper chest pain and pain in the left arm. Spurling's maneuver was positive for increased pain down the left arm and in the upper chest. We discussed conservative options for treatment of acute radiculitis including prednisone, epidural, muscle relaxers, increasing the gabapentin dose and physical therapy. She refused prednisone. She states she has had epidurals in the past from Dr. Dr. Jauregui and they do not help. The gabapentin was increased to 300 mg twice daily and 600 mg at bedtime. She was given a 300 mg dose while in the hospital and the pain did improve somewhat. She was discharged on 313 and given a requisition to obtain physical therapy. She was also given a prescription for gabapentin, #120, 1 p.o. twice daily and 2 nightly. She has a follow-up appointment with Dr. Dr. Jauregui this coming Sunday. She will follow-up with Dr. Thacker in the office in 7-10 days. If the pain continues or gets worse she will need to follow-up with Dr. Han and possibly have an MRI. This note was generated with [employer] dictation software. It may contain incorrect words, spelling, and punctuation that were not noted in checking the note before signing. Discharge Activity: Return to Normal Activity, May not drive while taking narcotic pain medications. Call your doctor if you observe: Fever of 101 or Higher, Inability to urinate, Inability to have a bowel movement, Swelling in the ankles, - - weakness in your arms, worsening pain despite medication Home Medications: Medications to take at Discharge Cholecalciferol (VIT D3) [Vitamin D3] 1,000 unit PO DAILY 10/08/15 Lisinopril [Zestril] 5 mg PO DAILY 10/08/15 Simvastatin [Zocor] 20 mg PO QHS 10/08/15 Tizanidine HCl 4 mg PO QHS 10/08/15 Trazodone HCl 200 mg PO QHS 08/23/16 Furosemide [Lasix] 20 mg PO DAILY 12/07/16 Hydrocodone Bitart/Apap 5-325 [[place] 5/325] 0.5 - 2 tablet PO Q6H PRN PRN 04/23/17 Bisacodyl [Dulcolax] 5 mg PO DAILY PRN 10/15/17 Duloxetine Hcl [Cymbalta] 60 mg PO DAILY 10/15/17 Linagliptin [Tradjenta] 5 mg PO DAILY 10/15/17 Meloxicam [Mobic] 7.5 mg PO DAILY 10/15/17 Gabapentin [Neurontin] 300 mg PO UD #120 cap 10/16/17 Following Prescrptions Were Given to Patient: Gabapentin [Neurontin] 300 mg PO UD #120 cap Other Amb Orders: Physical Therapy Evaluation Location: None Selected Primary Care Physician: Hua Mosher MD [Primary Care Provider] - Please follow up with your Primary Care Physician in: 7-10 days Please Follow Up With: Adair Jauregui MD When: has appt Sunday Please Follow Up With: Ruby Han MD When: as needed if the pain in the left arm does not get better Disposition: Home Minutes spent on discharge:: 35 Patient Condition:: Stable Meaningful Use Info Meaningful Use Diagnoses (Choose all that apply): None applicable Code Visit OBSV E&M: 15033 Observation care discharge
--- NOTE | 2017-10-16 17:58 | DS.PCM_ITS ---
Discharge Date and Diagnosis - Problem List Patient Problems: Active and Suspected Problems Cervical radiculitis (Acute) Chest pain (Acute) Date of Admission: 10/15/17 Date of Discharge: 10/16/17 - Primary Discharge Diagnosis Active and Suspected Problems Chest pain (Acute) - non-cardiac Cervical radiculitis (Acute) - Secondary Discharge Diagnosis Chronic Problems Cervical vertebral fusion (Chronic) X 2 levels Fibromyalgia (Chronic) COPD (chronic obstructive pulmonary disease) (Chronic) Anxiety (Chronic) Hyperlipidemia (Chronic) Tobacco use (Chronic) on chantix Hypertension (Chronic) Obesity (BMI 30-39.9) (Chronic) Diabetes mellitus, type II (Chronic) Chronic back pain (Chronic) CKD (chronic kidney disease) stage 3, GFR 30-59 ml/min (Chronic) Hospital Course and Treatment Imaging Results: Clinical Impression(s) from Imaging Studies Chest X-Ray 10/15/17 13:14 IMPRESSION: No acute abnormality is seen. Electronically Signed: Roger Barker MD at 13:49 EDT Tel [phone], Service support , Chest CTA 10/15/17 13:49 IMPRESSION: Bolus changes in the right lung. No acute abnormality is seen. Electronically Signed: Roger Barker MD at 14:56 EDT Tel [phone], Service support , Laboratory Tests 10/15/17 10/15/17 10/15/17 13:15 13:15 13:15 WBC 7.0 RBC 3.92 L Hgb 13.0 Hct 40.0 MCV 102.0 H MCH 33.2 H MCHC 32.5 RDW 13.3 RDW Differential 48.9 H Plt Count 228 MPV 9.2 Immature Gran % (Auto) 0.400 Neut % (Auto) 60.6 Lymph % (Auto) 27.8 [place] % (Auto) 9.2 Eos % (Auto) 1.4 Baso % (Auto) 0.6 Absolute Neuts (auto) 4.2 Absolute Lymphs (auto) 1.94 Total Counted Not Reportable PT INR APTT D-Dimer Quant (PE/DVT) 2.41 H* Sodium 145 Potassium 3.6 Chloride 110 H Carbon Dioxide 30.0 Anion Gap 5 BUN 14 Creatinine 1.28 H Estim Creat Clear Calc 40.11 Est GFR (MDRD) Af Amer 55 L Est GFR (MDRD) Non-Af 46 L BUN/Creatinine Ratio 10.9 Glucose 146 H Hemoglobin A1c Calcium 8.6 Magnesium Troponin I < 0.02 Triglycerides Cholesterol LDL Cholesterol VLDL Cholesterol HDL Cholesterol TSH POC Glucose 10/15/17 10/15/17 10/15/17 13:15 13:15 17:40 WBC RBC Hgb Hct MCV MCH MCHC RDW RDW Differential Plt Count MPV Immature Gran % (Auto) Neut % (Auto) Lymph % (Auto) [place] % (Auto) Eos % (Auto) Baso % (Auto) Absolute Neuts (auto) Absolute Lymphs (auto) Total Counted PT INR APTT D-Dimer Quant (PE/DVT) Sodium Potassium Chloride Carbon Dioxide Anion Gap BUN Creatinine Estim Creat Clear Calc Est GFR (MDRD) Af Amer Est GFR (MDRD) Non-Af BUN/Creatinine Ratio Glucose Hemoglobin A1c 6.6 H Calcium Magnesium 1.9 Troponin I < 0.02 Triglycerides Cholesterol LDL Cholesterol VLDL Cholesterol HDL Cholesterol TSH 1.08 POC Glucose 10/15/17 10/15/17 10/15/17 17:41 20:55 21:35 WBC RBC Hgb Hct MCV MCH MCHC RDW RDW Differential Plt Count MPV Immature Gran % (Auto) Neut % (Auto) Lymph % (Auto) [place] % (Auto) Eos % (Auto) Baso % (Auto) Absolute Neuts (auto) Absolute Lymphs (auto) Total Counted PT INR APTT D-Dimer Quant (PE/DVT) Sodium Potassium Chloride Carbon Dioxide Anion Gap BUN Creatinine Estim Creat Clear Calc Est GFR (MDRD) Af Amer Est GFR (MDRD) Non-Af BUN/Creatinine Ratio Glucose Hemoglobin A1c Calcium Magnesium Troponin I < 0.02 Triglycerides Cholesterol LDL Cholesterol VLDL Cholesterol HDL Cholesterol TSH POC Glucose 137 H 130 H 10/16/17 10/16/17 10/16/17 04:00 04:00 05:36 WBC RBC Hgb Hct MCV MCH MCHC RDW RDW Differential Plt Count MPV Immature Gran % (Auto) Neut % (Auto) Lymph % (Auto) [place] % (Auto) Eos % (Auto) Baso % (Auto) Absolute Neuts (auto) Absolute Lymphs (auto) Total Counted PT INR APTT D-Dimer Quant (PE/DVT) Sodium Potassium Chloride Carbon Dioxide Anion Gap BUN Creatinine Estim Creat Clear Calc Est GFR (MDRD) Af Amer Est GFR (MDRD) Non-Af BUN/Creatinine Ratio Glucose Hemoglobin A1c Calcium Magnesium Troponin I < 0.02 Triglycerides 101 Cholesterol 115 LDL Cholesterol 52 VLDL Cholesterol 20 HDL Cholesterol 43 TSH POC Glucose 142 H 10/16/17 10/16/17 10/16/17 05:52 05:52 05:52 WBC 6.0 RBC 3.65 L Hgb 11.6 L Hct 37.6 MCV 103.0 H MCH 31.8 MCHC 30.9 L RDW 13.8 RDW Differential 51.7 H Plt Count 209 MPV 9.8 Immature Gran % (Auto) 0.300 Neut % (Auto) 52.9 Lymph % (Auto) 35.5 [place] % (Auto) 9.0 Eos % (Auto) 1.8 Baso % (Auto) 0.5 Absolute Neuts (auto) 3.2 Absolute Lymphs (auto) 2.14 Total Counted Not Reportable PT 13.3 INR 1.0 APTT 29.2 D-Dimer Quant (PE/DVT) Sodium 150 H Potassium 4.2 Chloride 115 H Carbon Dioxide 29.0 Anion Gap 6 BUN 11 Creatinine 1.18 H Estim Creat Clear Calc 43.51 Est GFR (MDRD) Af Amer 61 Est GFR (MDRD) Non-Af 50 L BUN/Creatinine Ratio 9.3 L Glucose 127 H Hemoglobin A1c Calcium 8.0 L Magnesium Troponin I Triglycerides Cholesterol LDL Cholesterol VLDL Cholesterol HDL Cholesterol TSH POC Glucose 10/16/17 10/16/17 11:11 16:12 WBC RBC Hgb Hct MCV MCH MCHC RDW RDW Differential Plt Count MPV Immature Gran % (Auto) Neut % (Auto) Lymph % (Auto) [place] % (Auto) Eos % (Auto) Baso % (Auto) Absolute Neuts (auto) Absolute Lymphs (auto) Total Counted PT INR APTT D-Dimer Quant (PE/DVT) Sodium Potassium Chloride Carbon Dioxide Anion Gap BUN Creatinine Estim Creat Clear Calc Est GFR (MDRD) Af Amer Est GFR (MDRD) Non-Af BUN/Creatinine Ratio Glucose Hemoglobin A1c Calcium Magnesium Troponin I Triglycerides Cholesterol LDL Cholesterol VLDL Cholesterol HDL Cholesterol TSH POC Glucose 92 111 H Operations: None Procedures: Stress test - Pharmacologic nuclear stress test-negative for ischemia, gated nuclear ejection fraction of 70% Summary of Care Provided: The patient is a 57 year old F with a past medical history of COPD, anxiety/ depression, hyperlipidemia, hypertension, morbid obesity, diabetes mellitus type 2, chronic renal failure stage III, tobacco dependence, fibromyalgia, hx of cervical fusion X 2 levels in 2017 who presented to the emergency department at [facility] on 10/15/2017 complaining of chest pain. The chest pain started on 10/14/2017 and it started while she was resting. Pain was located in the left upper chest and she also had pain down her left arm. She also complained of numbness in her fingers. She had no shortness of breath, no nausea and no diaphoresis. She went to bed and took 2 sleeping pills and a Vicodin and she was able to sleep through the night. The following morning when she awoke she continued to have chest pain. CTA of the chest in the emergency room was negative. Chest x-ray revealed no infiltrates, pleural effusions or pulmonary vascular congestion. Troponin was less than 0.02 and the EKG showed sinus tachycardia with no suspicious ST or T-wave changes. She was admitted to a monitored bed on PCU and serial cardiac enzymes were obtained and they were negative. Lipid panel showed a total cholesterol of 115 with an LDL of 52 and an HDL of 43. Triglycerides were 101. Sodium is high at 150 and the creatinine was elevated at 1.18 and this may be related to the diuretic therapy. Pharmacologic nuclear stress test was done on 10/16/2017 and showed no evidence of ischemia and the gated nuclear ejection fraction was 70%. She continues to complain of left upper chest pain and pain in the left arm. Spurling's maneuver was positive for increased pain down the left arm and in the upper chest. We discussed conservative options for treatment of acute radiculitis including prednisone, epidural, muscle relaxers, increasing the gabapentin dose and physical therapy. She refused prednisone. She states she has had epidurals in the past from Dr. Dr. Jauregui and they do not help. The gabapentin was increased to 300 mg twice daily and 600 mg at bedtime. She was given a 300 mg dose while in the hospital and the pain did improve somewhat. She was discharged on 313 and given a requisition to obtain physical therapy. She was also given a prescription for gabapentin, #120, 1 p.o. twice daily and 2 nightly. She has a follow-up appointment with Dr. Dr. Jauregui this coming Sunday. She will follow-up with Dr. Thacker in the office in 7-10 days. If the pain continues or gets worse she will need to follow-up with Dr. Han and possibly have an MRI. This note was generated with [employer] dictation software. It may contain incorrect words, spelling, and punctuation that were not noted in checking the note before signing. Discharge Activity: Return to Normal Activity, May not drive while taking narcotic pain medications. Call your doctor if you observe: Fever of 101 or Higher, Inability to urinate, Inability to have a bowel movement, Swelling in the ankles, - - weakness in your arms, worsening pain despite medication Home Medications: Medications to take at Discharge Cholecalciferol (VIT D3) [Vitamin D3] 1,000 unit PO DAILY 10/08/15 Lisinopril [Zestril] 5 mg PO DAILY 10/08/15 Simvastatin [Zocor] 20 mg PO QHS 10/08/15 Tizanidine HCl 4 mg PO QHS 10/08/15 Trazodone HCl 200 mg PO QHS 08/23/16 Furosemide [Lasix] 20 mg PO DAILY 12/07/16 Hydrocodone Bitart/Apap 5-325 [[place] 5/325] 0.5 - 2 tablet PO Q6H PRN PRN Bisacodyl [Dulcolax] 5 mg PO DAILY PRN 10/15/17 Duloxetine Hcl [Cymbalta] 60 mg PO DAILY 10/15/17 Linagliptin [Tradjenta] 5 mg PO DAILY 10/15/17 Meloxicam [Mobic] 7.5 mg PO DAILY 10/15/17 Gabapentin [Neurontin] 300 mg PO UD #120 cap 10/16/17 Following Prescrptions Were Given to Patient: Gabapentin [Neurontin] 300 mg PO UD #120 cap Other Amb Orders: Physical Therapy Evaluation Location: None Selected Primary Care Physician: Hua Mosher MD [Primary Care Provider] - Please follow up with your Primary Care Physician in: 7-10 days Please Follow Up With: Adair Jauregui MD When: has appt Sunday Please Follow Up With: Ruby Han MD When: as needed if the pain in the left arm does not get better Disposition: Home Minutes spent on discharge:: 35 Patient Condition:: Stable Meaningful Use Info Meaningful Use Diagnoses (Choose all that apply): None applicable Code Visit OBSV E&M: 23610 Observation care discharge
== END 2017-10-16 17:44 | disposition home or self-care (01) ==
LOC: ED 13:26 → PCU 15:42
PROVIDERS: Physician Assistant; Admitting Provider Hospitalist; Emergency Provider Emergency Medicine; Family Provider Family Medicine; PCP Family Medicine; Visit Provider Internal Medicine
DX: R07.89 Other chest pain (principal); R06.02 Shortness of breath; J44.9 Chronic obstructive pulmonary disease, unspecified; E78.5 Hyperlipidemia, unspecified; F41.9 Anxiety disorder, unspecified; E66.01 Morbid (severe) obesity due to excess calories; Z68.39 Body mass index [BMI] 39.0-39.9, adult; Z71.3 Dietary counseling and surveillance; G89.29 Other chronic pain; M54.9 Dorsalgia, unspecified; E11.22 Type 2 diabetes mellitus with diabetic chronic kidney disease; I12.9 Hypertensive chronic kidney disease with stage 1 through stage 4 chronic kidney disease, or unspecified chronic kidney disease; N18.3 Chronic kidney disease, stage 3 (moderate); Z87.891 Personal history of nicotine dependence; M79.89 Other specified soft tissue disorders; Z82.49 Family history of ischemic heart disease and other diseases of the circulatory system; Z79.899 Other long term (current) drug therapy; F32.9 Major depressive disorder, single episode, unspecified; M54.12 Radiculopathy, cervical region; M79.7 Fibromyalgia
CPT/HCPCS: 36415; 71045; 71275; 78452; 80048; 80061; 82962; 83036; 83735; 84443; 84484; 85025; 85379; 85610; 85730; 93005; 93017; 93970; 96361; 96372; 96374; 99218; 99284; A9500; J7030; Q9967; A4216; G0378; J2785

== ENCOUNTER → 2017-11-05 18:12 | Outpatient (CLI) | payer OTHER, SELFPAY ==
--- NOTE | 2017-11-05 18:20 | RAD_ITS ---
STUDY: X-RAY CHEST REASON FOR EXAM: Female, 57 years old. COPD TECHNIQUE: Frontal and lateral views of the chest. COMPARISON: 10/15/2017 FINDINGS: Cervical spine fusions. The lungs are clear and expanded. There is no demonstrated pleural abnormality. Normal size heart. Normal mediastinum and praveen. Normal visualized pulmonary arteries. Normal visualized aortic arch and descending thoracic aorta. Normal visualized thoracic spine. Normal visualized ribs, clavicles, and shoulders. There is no demonstrated abnormality of the visualized soft tissue structures of the upper abdomen. RAD/Chest PA and Lateral IMPRESSION: No acute pulmonary findings. Electronically Signed: Rolando Briggs MD at 6:05 EDT Tel , Service support ,
[2017-11-05 18:35] LABS: Absolute Lymphocyte Count 2.05 X10^3/ul (0.83-4.51); Absolute Neutrophil Count 5.1 X10^3/uL (2.0-7.7); Basophil# 0.02 X10^3/uL; Basophil% 0.2 % (0-1); Eosinophil# 0.14 X10^3/uL; Eosinophils% 1.7 % (0-5); Hematocrit 44.4 % (37-47); Hemoglobin 14.2 g/dl (12.0-15.0); Lymphocyte # 2.05 X10^3/ul (4.0); Lymphocyte % 25.5 % (19-41); Mean Corpuscular Hgb 31.8 pg (27.0-32.0); Mean Corpuscular Volume 99.6 fL (81-99); Mean Platelet Vol. 9.3 fl (6.2-12.0); Monocyte# 0.74 X10^3/uL; Monocyte% 9.2 % (0-10); Neutrophil # 5.06 X10^3/uL (2.7-7.7); Neutrophil % 63.2 % (47-70); Platelet Count 220 K/mm3 (150-450); RBC Distribution Width CV 13.7 % (11.6-14.6); RBC Distribution Width SD 50.2 fl (35.1-43.9); Red Blood Count 4.46 M/mm3 (4.2-5.4)
[2017-11-05 18:37] LABS: POSITIVE COUNT NO; POSITIVE DIFFERENTIAL NO; POSITIVE MORPHOLOGY NO
[2017-11-05 19:10] LABS: Anion Gap 8 (5-15); BUN 30 mg/dL (7-18); BUN/Creat Ratio 21.3 RATIO (10-20); Chloride 106 mmol/L (98-107); Creatinine, Serum 1.41 mg/dL (0.55-1.02); EST Glomerular Filtration Rate 41 mL/min (>60); Est Glom Filt Rate - Afr Amer 49 mL/min (>60); Glucose 152 mg/dL (74-106); Magnesium 2.2 mg/dL (1.6-2.6); Potassium 3.5 mmol/L (3.5-5.1); Sodium Level 144 mmol/L (136-145)
[2017-11-06 14:17] LABS: Hemoglobin A1c 6.8 % (4.2-6.3)
== END ==
PROVIDERS: Family Provider Family Medicine; PCP Family Medicine; Visit Provider Family Medicine
DX: J44.1 Chronic obstructive pulmonary disease with (acute) exacerbation (principal); R00.0 Tachycardia, unspecified
CPT/HCPCS: 36415; 71046; 80048; 83036; 83735; 85025

== ENCOUNTER 2017-11-12 17:31 | Emergency (ER) | payer OTHER, SELFPAY ==
[2017-11-12 17:32] VITALS: BP 160/111; PULSE 108; RESP 18; TEMP 36.5; O2SAT 96; BMI 39.3
--- NOTE | 2017-11-12 17:43 | CT_ITS ---
STUDY: CT ABDOMEN AND PELVIS WITH CONTRAST REASON FOR EXAM: Female, 57 years old. Abdominal pain and leukocytosis RADIATION DOSAGE (If Supplied By Facility): CTDIvol = ( 18.49 ) mGy, DLP = ( 1228.65 ) mGycm TECHNIQUE: Transaxial images were obtained from the dome of the diaphragm to the symphysis pubis without oral contrast. 100 ml of Isovue 300 contrast was administered. Sagittal and coronal images were reconstructed. Individualized dose optimization techniques were used for this CT. COMPARISON: December 07, 2016 FINDINGS: There is mild interstitial thickening at the lung bases. There is subsegmental atelectasis in the right lower lobe.. The visualized portions of the heart are within normal limits. Small hiatal hernia is demonstrated. There is mild eccentric thickening of the wall of the distal esophagus possibly due to esophagitis although neoplasm not excluded. Barium swallow would be helpful for further evaluation. Normal liver. Normal gallbladder and extrahepatic biliary system. Normal spleen. Diffuse pancreatic atrophy Normal bilateral adrenal glands. Normal right kidney. Normal left kidney. Normal visualized stomach. Normal small intestine. Diverticular disease of the descending colon without evidence for acute diverticulitis. Appendix not visualized which may be consistent with prior appendectomy. Atherosclerotic changes of the aorta without evidence for aneurysm.. Normal inferior vena cava. Normal retroperitoneum. Normal urinary bladder. Small fat-containing periumbilical hernia.. Lumbar spine demonstrates moderate spondylosis most severe at L4-5. CT/Abdomen/Pelvis WITH Contrast IMPRESSION: Mild subsegmental atelectasis right lower lobe. Small hiatal hernia is eccentric thickening of the distal wall of the esophagus which may be further assessed with barium swallow or endoscopy if indicated No acute abnormalities Electronically Signed: Davidson Mcclure MD at 19:54 EDT , Service support ,
--- NOTE | 2017-11-12 17:49 | ED.DCSUM_ITS ---
- ER Visit Summary Date of Service: 11/12/17 Chief Complaint: Abdominal pain History of Present Illness: The patient is a 57 F presenting with abdominal pain which started earlier today. She has had nausea with no vomiting. Denies diarrhea or constipation. Denies melena. Denies dysuria. She has not had similar symptoms in the past. Denies fever. No chest pain shortness of breath. Physical Examination: Vitals are stable. Patient is afebrile. Alert no acute distress. HEENT exam is unremarkable. Neck is supple. Lungs are clear and equal bilaterally. Heart is regular rate and rhythm. Abdomen is soft right and left lower quadrant tenderness with no rebound or guarding. Extremities are unremarkable. Skin is warm and dry. No focal neurologic deficit. Remainder of exam is unremarkable. Emergency Department Course and Treatment: She was given IV fluids, morphine, Zofran. CBC shows a white count of 12.7. Glucose 142, BUN 29, creatinine 1.55 which is near her baseline. Liver lipase are normal. Urinalysis is unremarkable. CT abdomen pelvis shows small hiatal hernia is eccentric thickening of the distal wall of the esophagus which may be further assessed with barium swallow or endoscopy if indicated. No acute abnormalities. On repeat exam patient continues to have right lower quadrant tenderness. Discussed with Dr. Betancourt. She reviewed the CT images herself. Patient has a lot of constipation in the right lower quadrant. She recommends mag citrate and follow-up. Patient is advised to also follow-up with Dr. Barney for abnormal esophagus findings. Also advised to follow-up with her primary care physician. She is advised return to the ED if she has any worsening complaints. Disposition: Discharge home Impression: Abdominal pain, constipation This note was generated with [employer] dictation software. It may contain incorrect words, spelling, and punctuation that were not noted in review of the chart prior to signing ED Disposition - Plan for ED Patient: Chief Complaint: Abd Pain Referrals: Hua Mosher MD [Primary Care Provider] -
[2017-11-12] MEDS: Morphine 4 MG/ML Syringe IV (18:19)
[2017-11-12] MEDS: Ondansetron 4 MG/2 ML Vial IV ×2 (18:19→21:02)
--- NOTE | 2017-11-12 18:40 | ED.RN ---
URINE SAMPLE REJECTED. PT INFORMED TO PROVIDE NEW SAMPLE.
[2017-11-12 18:45] LABS: Absolute Lymphocyte Count 3.07 X10^3/ul (0.83-4.51); Absolute Neutrophil Count 8.4 X10^3/uL (2.0-7.7); Basophil# 0.04 X10^3/uL; Basophil% 0.3 % (0-1); Eosinophil# 0.12 X10^3/uL; Eosinophils% 0.9 % (0-5); Hematocrit 43.6 % (37-47); Hemoglobin 14.2 g/dl (12.0-15.0); Lymphocyte # 3.07 X10^3/ul (4.0); Lymphocyte % 24.2 % (19-41); Mean Corp Hgb Conc 32.6 g/gl (32-36); Mean Corpuscular Hgb 32.1 pg (27.0-32.0); Mean Corpuscular Volume 98.6 fL (81-99); Monocyte# 1.01 X10^3/uL; Neutrophil # 8.35 X10^3/uL (2.7-7.7); Neutrophil % 65.8 % (47-70); Platelet Count 253 K/mm3 (150-450); RBC Distribution Width CV 14.1 % (11.6-14.6); RBC Distribution Width SD 50.6 fl (35.1-43.9); Red Blood Count 4.42 M/mm3 (4.2-5.4); White Blood Count 12.7 K/mm3 (4.4-11.0)
[2017-11-12 18:46] LABS: POSITIVE COUNT NO; POSITIVE DIFFERENTIAL NO; POSITIVE MORPHOLOGY NO
[2017-11-12 18:52] LABS: ALB/GLOB Ratio 0.9 RATIO (0.9-2.4); AST(SGOT) 15 U/L (15-37); Alanine Aminotransfer ALT/SGPT 18 U/L (13-56); Albumin, Serum 3.3 g/dL (3.2-5.0); Alkaline Phosphatase 98 U/L (45-117); Anion Gap 7 (5-15); BUN 29 mg/dL (7-18); BUN/Creat Ratio 18.7 RATIO (10-20); Calcium,Total 8.8 mg/dL (8.5-10.1); Chloride 108 mmol/L (98-107); Creatinine, Serum 1.55 mg/dL (0.55-1.02); EST Glomerular Filtration Rate 37 mL/min (>60); Est Glom Filt Rate - Afr Amer 44 mL/min (>60); Estimated Creatinine Clearance 33.13 ml/min; Globulin 3.7 g/dL (2.2-4.2); Glucose 142 mg/dL (74-106); Lipase 61 U/L (73-393); Potassium 3.6 mmol/L (3.5-5.1); Sodium Level 144 mmol/L (136-145)
[2017-11-12 19:10] LABS: Bacteria 0 SEEN /hpf (None Seen); Mucous, Urine 0 SEEN /hpf (<or=2+); Red Blood Cells-Urine 0 SEEN /hpf (0-5); White Blood Cells 0 SEEN /hpf (0-5)
[2017-11-12 19:13] LABS: Color, Urine Straw (Yellow); Glucose, Dipstick Normal (Normal); Ketone-Dipstick Negative (Negative); Leukocyte Esterase-Dipstick Negative /ul (Negative); Nitrite-Dipstick Negative (Negative); Occult Blood-Urine Negative /ul (Negative); Protein-Dipstick Negative (Negative); Urine Bilirubin Dipstick Negative (Negative); Urine Clarity Clear (Clear); Urine Urobilinogen Normal (Normal); Urine pH 6.5 (5.0 - 8.0)
[2017-11-12 19:22] LABS: Squamous Epithelial Cells - UA 0-5 SEEN /hpf (5-10)
[2017-11-12 19:31] VITALS: BP 153/94; PULSE 97; RESP 18; O2SAT 95
--- NOTE | 2017-11-12 21:25 | ED.DEP ---
ED Disposition - Plan for ED Patient: Chief Complaint: Abd Pain Instructions: ED Abdominal Pain Unkn Cause, ED Constipation Prescriptions: Ondansetron [Zofran Odt] 4 mg PO Q8H PRN PRN #10 tablet PRN Reason: Nausea Referrals: Hua Mosher MD [Primary Care Provider] - Husma Barney MD [STAFF PHYSICIAN] -
[2017-11-12 21:34] VITALS: BP 122/80; PULSE 85; RESP 16; O2SAT 94
[2017-11-12] MEDS: Magnesium Citrate 300 ML PO (21:35)
== END 2017-11-12 21:45 | disposition home or self-care (01) ==
PROVIDERS: Emergency Provider Emergency Medicine; Family Provider Family Medicine; PCP Family Medicine
DX: R10.32 Left lower quadrant pain (principal); R10.31 Right lower quadrant pain; K59.00 Constipation, unspecified; R11.0 Nausea; K44.9 Diaphragmatic hernia without obstruction or gangrene; K22.8 Other specified diseases of esophagus; E11.9 Type 2 diabetes mellitus without complications; I10 Essential (primary) hypertension; F32.9 Major depressive disorder, single episode, unspecified; Z79.84 Long term (current) use of oral hypoglycemic drugs; Z79.899 Other long term (current) drug therapy
CPT/HCPCS: 74177; 80053; 81001; 83690; 85025; 96374; 96375; 96376; 99284; J7030; J7040; Q9967; A4216; J2405

== ENCOUNTER → 2017-11-22 08:01 | Outpatient (CLI) | payer OTHER, SELFPAY ==
--- NOTE | 2017-11-22 13:51 | PFTCOMP ---
COMPLETE PULMONARY FUNCTION TEST INTERPRETATION Brief HPI: Patient is a 57 year old female, currently under the care of Dr. Briggs, who presents to [facility] for complete pulmonary function tests secondary to diagnosis of COPD. Respiratory therapist reports good effort and reproducible results. Interpretation: Forced expiration spirometry shows a moderate large airways obstructive ventilatory defect with an FEV1 of 66% predicted. There is nosignificant bronchodilator response by ATS criteria. Spirograms are of good quality and plateau slowly, indicating slowly emptying areas of the lungs. The respiratory flow volume loop shows decreased expiratory flow rates at all lung volumes consistent with airway obstruction. Lung volumes by body plethysmography show a normal total lung capacity at 4.52 L, 100% predicted. All other lung volumes are within normal limits. There is a trend towards air-trapping, but this does not reach clinical significance by ATS criteria. Diffusion capacity by carbon monoxide is decreased at 61% predicted. The airway resistance is normal. No previous pulmonary function tests were available for review. Impression: Irreversible moderate large airways obstructive ventilatory defect with a symmetric reduction diffusing capacity is consistent with the diagnosis of COPD.
== END ==
PROVIDERS: Family Provider Family Medicine; PCP Family Medicine; Visit Provider Internal Medicine Critical Care Medicine
DX: J44.9 Chronic obstructive pulmonary disease, unspecified (principal)
CPT/HCPCS: 94060; 94726; 94729

== ENCOUNTER → 2017-11-23 12:33 | Outpatient (CLI) | payer OTHER, SELFPAY ==
[2017-11-23 12:57] VITALS: PULSE 103; PULSE 106; PULSE 113; PULSE 117; PULSE 121; PULSE 124; O2SAT 94; O2SAT 95; O2SAT 96; O2SAT 97
--- NOTE | 2017-11-23 15:06 | WT_ITS ---
PSN 6 Minute Walk Test - 6 Minute Walk Test 6 Minute Walk Test: 6 Minute Walk Test PSN:6-Minute Walk Test Start: 11/23/17 12: 57 Freq: Status: Active Protocol: [id number] Document 11/23/17 12:57 LESLEY (Rec: 11/23/17 12:59 LESLEY [id number]) 6 Minute Walk Test Date Performed 11/23/17 Time Performed 12:40 Height 5 ft 2 in Weight: 99.79 kg Weight in Pounds 220.[address]: Shawn Briggs Assistive device used: None Pre-test Oxygen Delivery Method Room Air Pulse Ox (%) 96 Pulse Rate (60-100 beats/min) 106 H Dyspnea Leland Scale (0-10) 0 Exertion Leland Scale (6-20) 6 1st minute Oxygen Delivery Method Room Air Pulse Ox (%) 95 Pulse Rate (60-100 beats/min) 113 H 2nd minute Oxygen Delivery Method Room Air Pulse Ox (%) 94 Pulse Rate (60-100 beats/min) 124 H 3rd minute Oxygen Delivery Method Room Air Pulse Ox (%) 94 Pulse Rate (60-100 beats/min) 117 H 4th minute Oxygen Delivery Method Room Air Pulse Ox (%) 94 Pulse Rate (60-100 beats/min) 117 H 5th minute Oxygen Delivery Method Room Air Pulse Ox (%) 95 Pulse Rate (60-100 beats/min) 117 H 6th minute Oxygen Delivery Method Room Air Pulse Ox (%) 95 Pulse Rate (60-100 beats/min) 121 H Dyspnea Leland Scale (0-10) 0 Exertion Leland Scale (6-20) 11 Post-test Oxygen Delivery Method Room Air Pulse Ox (%) 97 Pulse Rate (60-100 beats/min) 103 H Full Laps Walked 16 Partial Lap, Number of Tiles Walked 35 Total Distance Walked (ft) 979 - Interpretation Interpretation: The patient was able to ambulate 979 feet over the course of 6 minutes on room air with no assistive devices. No significant desaturations were noted, but patient was persistently tachycardic throughout testing. Peak heart rate of 124 bpm. These findings are consistent with a cardiovascular limitation exercise tolerance. - Recommendations Recommendations: No supplemental oxygen is indicated at this time. Patient may benefit from a cardiology evaluation versus initiation of an exercise program.
== END ==
PROVIDERS: Family Provider Family Medicine; PCP Family Medicine; Visit Provider Internal Medicine Critical Care Medicine
DX: J44.9 Chronic obstructive pulmonary disease, unspecified (principal)
CPT/HCPCS: 94618

== ENCOUNTER 2017-11-27 11:38 | Day surgery (SDC) | payer OTHER, SELFPAY ==
[2017-11-27 12:05] VITALS: BP 151/92; PULSE 105; RESP 18; TEMP 36.4; O2SAT 95
== END 2017-11-27 12:41 | disposition home or self-care (01) ==
PROVIDERS: Family Provider Family Medicine; PCP Family Medicine; Visit Provider Surgery
PROC: F00ZJWZ Instrumental Swallowing and Oral Function Assessment using Swallowing Equipment (ICD-10-PCS; CPT 43235; principal; 2017-11-27 11:55)
DX: K21.9 Gastro-esophageal reflux disease without esophagitis (principal)
CPT/HCPCS: 91010; 91013

== ENCOUNTER 2017-12-05 05:56 | Day surgery (SDC) | payer OTHER, SELFPAY ==
[2017-12-05 06:13] VITALS: BP 114/74; PULSE 94; RESP 20; TEMP 36.3; O2SAT 95; BMI 40.6
--- NOTE | 2017-12-05 07:15 | PCM.OPRPT ---
Problem List (1) Gastro-esophageal reflux disease without esophagitis Status: Acute (2) Epigastric pain Status: Acute Report of Operation Date of Procedure: 12/05/17 Pre-Operative Diagnosis: k21.9 gastroesophageal reflux disease without esophagitis. r10.13 epigastric abdominal pain Post-Operative Diagnosis: Same Surgery/Procedure Performed:: [id number], [id number] esophagogastroduodenoscopy with 48 hour pH probe placement Type of Anesthesia:: MAC Anesthesiologist: Colton Casper Description of Procedure: Patient was brought into the endoscopy suite. Back of her throat was sprayed with benzocaine spray. A bite-block was placed. She was placed in the left lateral decubitus position. Graded anesthesia was given. The scope was inserted in the back of the oropharynx and directed down through the esophagus into the stomach and into the duodenum. Operative findings: 1. Duodenum: Normal appearance no mass lesions some slight erythema was identified. 2. Stomach: Normal appearance no mass lesions no ulcerations retroflexion did show a sliding type of hiatal hernia 3. Esophagus: Normal appearance no mass lesions distal esophagus showed no signs of esophagitis. ZE line was at 36 cm the diaphragmatic hiatus was at 39 cm scope was withdrawn. The pH probe was marked to 30 cm. It was placed in the oropharynx and directed down through the esophagus. Proper suction was applied pH probe was deployed. The scope was then inserted back into the oropharynx and down to where the pH probe was located and a photograph was obtained showing the pH probe to be in good placement. The scope was withdrawn and the patient tolerated the procedure well. - Admit VTE Documentation VTE Present on Admission: No VTE Mechan Device Prophylaxis: None VTE Pharm Prophylaxis ordered?: No Reason prophylaxis not ordered:: Treatment Not Indicated
[2017-12-05 07:17] VITALS: BP 110/71; BP 114/74; PULSE 84; RESP 16; TEMP 36.4; O2SAT 95
[2017-12-05 07:20] VITALS: BP 100/63; BP 114/74; PULSE 82; RESP 16; O2SAT 95
[2017-12-05 07:25] VITALS: BP 107/69; BP 114/74; PULSE 80; RESP 16; O2SAT 95
[2017-12-05 07:36] VITALS: BP 114/74; BP 116/79; PULSE 83; RESP 18; TEMP 37; O2SAT 96
[2017-12-05 07:45] VITALS: BP 114/74
== END 2017-12-05 08:00 | disposition home or self-care (01) ==
LOC: EN 05:56 → AC 05:57
PROVIDERS: Family Provider Family Medicine; PCP Family Medicine; Visit Provider Surgery
PROC: (CPT 43235; principal; 2017-12-05 06:30)
DX: K21.9 Gastro-esophageal reflux disease without esophagitis (principal); K44.9 Diaphragmatic hernia without obstruction or gangrene; M79.7 Fibromyalgia; J44.9 Chronic obstructive pulmonary disease, unspecified; F41.9 Anxiety disorder, unspecified; F32.9 Major depressive disorder, single episode, unspecified; E78.00 Pure hypercholesterolemia, unspecified; E66.9 Obesity, unspecified; E11.22 Type 2 diabetes mellitus with diabetic chronic kidney disease; I12.9 Hypertensive chronic kidney disease with stage 1 through stage 4 chronic kidney disease, or unspecified chronic kidney disease; N18.3 Chronic kidney disease, stage 3 (moderate); K58.9 Irritable bowel syndrome, unspecified; Z87.19 Personal history of other diseases of the digestive system; Z86.2 Personal history of diseases of the blood and blood-forming organs and certain disorders involving the immune mechanism; Z78.0 Asymptomatic menopausal state; Z98.1 Arthrodesis status; Z87.891 Personal history of nicotine dependence; Z79.84 Long term (current) use of oral hypoglycemic drugs; Z79.899 Other long term (current) drug therapy
CPT/HCPCS: 43235; 91035; J7120

== ENCOUNTER 2017-12-09 15:24 | Inpatient (IN) | payer OTHER, SELFPAY ==
[2017-12-09 15:25] VITALS: BP 170/80; PULSE 119; RESP 16; TEMP 36.4; O2SAT 96; BMI 41.1
--- NOTE | 2017-12-09 15:40 | CT_ITS ---
STUDY: CT ABDOMEN AND PELVIS WITHOUT CONTRAST REASON FOR EXAM: Female, 57 years old. Left lower quadrant pain, rectal bleeding RADIATION DOSAGE (If Supplied By Facility): CTDIvol = ( 21.54 ) mGy, DLP = ( 1167.73 ) mGycm TECHNIQUE: Transaxial images were obtained from the lower chest to the upper thighs without oral contrast, and without intravenous contrast. Sagittal and coronal images were reconstructed. Individualized dose optimization techniques were used for this CT. COMPARISON: November 12, 2017 FINDINGS: There is minimal dependent atelectasis in both lung bases. There is minimal stable scarring in the lung bases, right greater than left. There is no pleural effusion. The heart is normal in size. There are coronary artery calcifications. The liver is unremarkable. The gallbladder and biliary ducts are unremarkable. The spleen is unremarkable. The pancreas is unremarkable. The adrenal glands are unremarkable. The right kidney is unremarkable. There is no dilatation of the collecting system in the right kidney. The left kidney is unremarkable. There is no dilatation of the collecting system in the left kidney. There is a moderate-sized hiatal hernia. The small bowel is unremarkable. There are diverticula in the distal colon without adjacent stranding. There is mild wall thickening with surrounding stranding in the distal transverse colon. The appendix is visualized and appears normal. There are moderate scattered vascular calcifications. The IVC is unremarkable. The retroperitoneum is unremarkable. There is no free fluid in the abdomen. The bladder is small with wall thickening. There is a small focus of air in the bladder. The uterus is normal in size and appearance. There are no abnormal masses in the adnexal regions. There is a small umbilical hernia containing fat. There are moderate degenerative changes in the visualized spine. CT/Abdomen/Pelvis without Cont IMPRESSION: There is mild wall thickening and surrounding inflammation in the distal transverse colon, probable mild focal colitis. There is no bowel obstruction. Again seen is diverticulosis of the distal colon. There is a moderate-sized hiatal hernia. There is no ascites, free air or significant lymphadenopathy. There is mild wall thickening in the urinary bladder, and a cystitis cannot be excluded. There is a small focus of air in the bladder which should be correlated with recent catheterization. Electronically Signed: Mercedes Belle MD at 18:10 EDT Tel Direct: [phone], Service support ,
--- NOTE | 2017-12-09 15:43 | ED.VISSUMM ---
- ER Visit Summary Date of Service: 12/09/17 Chief Complaint: Abdominal pain, rectal bleed History of Present Illness: The patient is a 57 F presents with initial abdominal pain starting around midnight, states she woke up 130 had a normal bowel movement. Pain persists. Nausea and vomiting until 1:30 AM. No hematemesis. However continued pain, around noon today 3-4 episodes bowel movements with blood clots. Denies lightheaded symptoms. No chest pains or shortness of breath. No anticoagulation medications. Colonoscopy 5 years ago. EGD [address] Barney due to reflux symptoms and recurrent hiatal hernia. Reports no biopsies or ulcers. States had diverticulitis in the past however this feels different and more severe. 9 out of 10. Denies any seeds in her diet over the last couple days. No urinary symptoms. Physical Examination: General: Alert and oriented ?3, no acute distress HEENT: Normocephalic, atraumatic. Moist mucosa membranes. Normal conjunctiva Neck: supple, nontender. Cardiovascular: Regular tachycardic rate and rhythm, no murmurs Respiratory: Normal breath sounds, symmetric, no distress Abdomen: Soft, left lower quadrant suprapubic tenderness without guarding or rebound, nondistended Rectal: No hemorrhoids. Digital exam noted blood on gloved finger. Extremities: Nontender, no edema, pulses intact ?4 Neuro: no focal neurological deficits. Test Results: WBC 12.6. Hemoglobin 13.6. Creatinine 1.45. Blood cultures pending. UA pending. Lactate pending. CT abdomen pelvis: Distal transverse colon colitis with possible cystitis. Emergency Department Course and Treatment: Patient tenderness left lower abdomen. Pain started for bleeding. Rule out colitis initiated. History of Platinol Zofran. Fluids were given. Orthostatics negative. Hemoglobin stable. Guaiac was positive. She is not on anticoagulation medicines. White count 12.[address] scan with colitis or concerns of infection I did add sepsis labs blood cultures and lactic acid. Blood pressure is stable. UA added due to concern for cystitis on CT she has no urine symptoms. She started on Cipro and Flagyl IV for colitis. Additional fentanyl for pain control. Creatinine was 1.45, she has had a creatinine range from 1.08-1.5 recently. Due to her GI bleed complaints, I did speak with covering surgeon Dr. mireles covering for Dr. Barney, she states she does not follow lower GI bleeds. deferred. I spoke with Dr. Ramirez who agrees to follow. I spoke with Dr. Palma who will evaluate for admission. Treatment Plan: [] Disposition: Admission Impression: 1. Abdominal pain 2. Lower GI bleed 3. Colitis 4. Chronic kidney disease This note was generated with [employer] dictation software. It may contain incorrect words, spelling, and punctuation that were not noted in review of the chart prior to signing ED Disposition - Plan for ED Patient: Disposition: Acute Care [facility] Chief Complaint: GI Bleed Diagnosis: Abdominal pain, Colitis, Lower GI bleed, Chronic kidney disease Referrals: Hua Mosher MD [Primary Care Provider] -
--- NOTE | 2017-12-09 15:46 | ED.DCSUM_ITS ---
- ER Visit Summary Date of Service: 12/09/17 Chief Complaint: Abdominal pain, rectal bleed History of Present Illness: The patient is a 57 F presents with initial abdominal pain starting around midnight, states she woke up 130 had a normal bowel movement. Pain persists. Nausea and vomiting until 1:30 AM. No hematemesis. However continued pain, around noon today 3-4 episodes bowel movements with blood clots. Denies lightheaded symptoms. No chest pains or shortness of breath. No anticoagulation medications. Colonoscopy 5 years ago. EGD [address] Barney due to reflux symptoms and recurrent hiatal hernia. Reports no biopsies or ulcers. States had diverticulitis in the past however this feels different and more severe. 9 out of 10. Denies any seeds in her diet over the last couple days. No urinary symptoms. Physical Examination: General: Alert and oriented ?3, no acute distress HEENT: Normocephalic, atraumatic. Moist mucosa membranes. Normal conjunctiva Neck: supple, nontender. Cardiovascular: Regular tachycardic rate and rhythm, no murmurs Respiratory: Normal breath sounds, symmetric, no distress Abdomen: Soft, left lower quadrant suprapubic tenderness without guarding or rebound, nondistended Rectal: No hemorrhoids. Digital exam noted blood on gloved finger. Extremities: Nontender, no edema, pulses intact ?4 Neuro: no focal neurological deficits. Test Results: WBC 12.6. Hemoglobin 13.6. Creatinine 1.45. Blood cultures pending. UA pending. Lactate pending. CT abdomen pelvis: Distal transverse colon colitis with possible cystitis. Emergency Department Course and Treatment: Patient tenderness left lower abdomen. Pain started for bleeding. Rule out colitis initiated. History of Platinol Zofran. Fluids were given. Orthostatics negative. Hemoglobin stable. Guaiac was positive. She is not on anticoagulation medicines. White count 12.[address] scan with colitis or concerns of infection I did add sepsis labs blood cultures and lactic acid. Blood pressure is stable. UA added due to concern for cystitis on CT she has no urine symptoms. She started on Cipro and Flagyl IV for colitis. Additional fentanyl for pain control. Creatinine was 1.45, she has had a creatinine range from 1.08 -1.5 recently. Due to her GI bleed complaints, I did speak with covering surgeon Dr. mireles covering for Dr. Barney, she states she does not follow lower GI bleeds. deferred. I spoke with Dr. Ramirez who agrees to follow. I spoke with Dr. Palma who will evaluate for admission. Treatment Plan: [] Disposition: Admission Impression: 1. Abdominal pain 2. Lower GI bleed 3. Colitis 4. Chronic kidney disease This note was generated with [employer] dictation software. It may contain incorrect words, spelling, and punctuation that were not noted in review of the chart prior to signing ED Disposition - Plan for ED Patient: Disposition: Acute Care [facility] Chief Complaint: GI Bleed Diagnosis: Abdominal pain, Colitis, Lower GI bleed, Chronic kidney disease Referrals: Hua Mosher MD [Primary Care Provider] -
[2017-12-09 16:11] VITALS: BP 159/97; BP 161/100; BP 161/81; PULSE 117; PULSE 122; PULSE 123
[2017-12-09 16:14] LABS: Anion Gap 7 (5-15); BUN 17 mg/dL (7-18); BUN/Creat Ratio 11.7 RATIO (10-20); Calcium,Total 9.1 mg/dL (8.5-10.1); Chloride 109 mmol/L (98-107); Creatinine, Serum 1.45 mg/dL (0.55-1.02); EST Glomerular Filtration Rate 39 mL/min (>60); Est Glom Filt Rate - Afr Amer 48 mL/min (>60); Estimated Creatinine Clearance 33.86 ml/min; Glucose 159 mg/dL (74-106); Potassium 3.9 mmol/L (3.5-5.1); Sodium Level 141 mmol/L (136-145)
[2017-12-09] MEDS: 0.9% Normal Saline 1,000 ML 1000 ML IV (16:17)
[2017-12-09] MEDS: fentaNYL 100 MCG/2 ML Ampul 50 MCG IV ×2 (16:17→18:44)
[2017-12-09] MEDS: Ondansetron 4 MG/2 ML Vial IV (16:17)
[2017-12-09 16:35] LABS: Absolute Neutrophil Count 9.2 X10^3/uL (2.0-7.7); Basophil# 0.03 X10^3/uL; Basophil% 0.2 % (0-1); Eosinophil# 0.11 X10^3/uL; Eosinophils% 0.9 % (0-5); Hematocrit 41.5 % (37-47); Hemoglobin 13.6 g/dl (12.0-15.0); Lymphocyte % 15.9 % (19-41); Mean Corp Hgb Conc 32.8 g/gl (32-36); Mean Corpuscular Hgb 32.5 pg (27.0-32.0); Mean Corpuscular Volume 99.3 fL (81-99); Mean Platelet Vol. 10.1 fl (6.2-12.0); Monocyte% 9.6 % (0-10); Neutrophil # 9.16 X10^3/uL (2.7-7.7); POSITIVE COUNT NO; POSITIVE DIFFERENTIAL NO; POSITIVE MORPHOLOGY NO; Platelet Count 246 K/mm3 (150-450); RBC Distribution Width CV 14.1 % (11.6-14.6); RBC Distribution Width SD 50.3 fl (35.1-43.9); Red Blood Count 4.18 M/mm3 (4.2-5.4); White Blood Count 12.6 K/mm3 (4.4-11.0)
[2017-12-09 17:07] LABS: Partial Thromboplast Time 25.6 Seconds (24.1-36.2); Prothrombin Time (Protime)PT. 13.2 SECONDS (11.7-14.9)
[2017-12-09 18:14] VITALS: BP 163/86; PULSE 118; RESP 22; O2SAT 92
[2017-12-09] MEDS: Ciprofloxacin 400 MG/200 ML BAG 200 MG IV (18:44)
[2017-12-09 18:49] VITALS: BP 158/87; PULSE 116; RESP 16; O2SAT 91
[2017-12-09 18:54] LABS: Bacteria 0 SEEN /hpf (None Seen); Mucous, Urine 0 SEEN /hpf (<or=2+); White Blood Cells 0 SEEN /hpf (0-5)
[2017-12-09 19:05] LABS: Color, Urine Yellow (Yellow); Glucose, Dipstick Normal (Normal); Ketone-Dipstick Negative (Negative); Leukocyte Esterase-Dipstick Negative /ul (Negative); Nitrite-Dipstick Negative (Negative); Occult Blood-Urine Negative /ul (Negative); Protein-Dipstick Negative (Negative); Specific Gravity, Urine 1.005 (1.002-1.030); Urine Bilirubin Dipstick Negative (Negative); Urine Clarity Clear (Clear); Urine Urobilinogen Normal (Normal)
[2017-12-09 19:12] LABS: Red Blood Cells-Urine 0-5 SEEN /hpf (0-5); Squamous Epithelial Cells - UA 0-5 SEEN /hpf (5-10)
--- NOTE | 2017-12-09 19:12 | PCM.HP.STD ---
Problem List (1) Ischemic colitis Status: Acute (2) SIRS (systemic inflammatory response syndrome) Status: Acute (3) GI bleed Status: Acute (4) Gastro-esophageal reflux disease without esophagitis Status: Chronic (5) Epigastric pain Status: Chronic (6) Colitis Status: Acute (7) Lower GI bleed Status: Acute (8) Chronic kidney disease Status: Acute (9) Tobacco dependence in remission Status: Chronic (10) History of repair of hiatal hernia Status: Resolved (11) Cervical vertebral fusion Status: Resolved (12) Cervical radiculitis Status: Chronic (13) Fibromyalgia Status: Chronic (14) COPD (chronic obstructive pulmonary disease) Status: Chronic (15) Anxiety Status: Chronic (16) Hyperlipidemia Status: Chronic Qualifiers: (17) Tobacco use Status: Chronic Comment: on chantix (18) Hypertension Status: Chronic Qualifiers: (19) Obesity (BMI 30-39.9) Status: Chronic (20) Diabetes mellitus, type II Status: Chronic Qualifiers: (21) Chronic back pain Status: Chronic (22) CKD (chronic kidney disease) stage 3, GFR 30-59 ml/min Status: Chronic History of Present Illness Date of Admission: 12/09/17 Chief Complaint: abdominal pain. GI bleed. The patient is a 57 year old F is in her normal state of health but developed left ear quadrant abdominal pain this morning. Patient was up anyways because she has chronic reflux related with a hiatal hernia but then afterwards, patient had 3-4 bowel movements with blood clots. That has resolved. Patient still has abdominal pain. Patient had a CAT scan that showed transverse colitis. Dr. Ramirez was called and will be seeing the patient on consultation. Patient has never had any pain like this before nor any gastrointestinal bleeding before. [] Past Medical History Past Medical History (Chronic Problems): Chronic Problems (Last Reviewed 11/19/17 @ 12:55 by Husam Barney MD) Gastro-esophageal reflux disease without esophagitis (Chronic) Epigastric pain (Chronic) Tobacco dependence in remission (Chronic) Cervical radiculitis (Chronic) Fibromyalgia (Chronic) COPD (chronic obstructive pulmonary disease) (Chronic) Anxiety (Chronic) Hyperlipidemia (Chronic) Tobacco use (Chronic) on chantix Hypertension (Chronic) Obesity (BMI 30-39.9) (Chronic) Diabetes mellitus, type II (Chronic) Chronic back pain (Chronic) CKD (chronic kidney disease) stage 3, GFR 30-59 ml/min (Chronic) Allergies No Known Allergies Allergy (Verified 11/28/17 15:37) Home Medications: Ambulatory Orders Medication Instructions Recorded Cholecalciferol (VIT D3) [Vitamin 1,000 unit PO DAILY 10/08/15 D3] Lisinopril [Zestril] 5 mg PO DAILY 10/08/15 Simvastatin [Zocor] 20 mg PO QHS 10/08/15 Tizanidine HCl 4 mg PO QHS 10/08/15 Trazodone HCl 200 mg PO QHS 08/23/16 Hydrocodone Bitart/Apap 5-325 1 tab PO BID 04/23/17 [[place] 5/325] Bisacodyl [Dulcolax] 5 mg PO DAILY PRN 10/15/17 Duloxetine Hcl [Cymbalta] 60 mg PO DAILY 10/15/17 Linagliptin [Tradjenta] 5 mg PO DAILY 10/15/17 Meloxicam [Mobic] 7.5 mg PO DAILY 10/15/17 albuterol sulfate HFA 90 2 puff INHALATION Q6H PRN #1 device 11/08/17 mcg/actuation aerosol inhaler Ondansetron [Zofran Odt] 4 mg PO Q8H PRN PRN #10 tab 11/12/17 furosemide 20 mg tablet 20 mg PO BID tab 11/15/17 Calcium Carbonate [Tums] 200 mg PO PRN PRN 11/28/17 Gabapentin [Neurontin] 300 mg PO TID 11/28/17 Omeprazole Magnesium [Prilosec Otc] 20 mg PO DAILY 11/28/17 Umeclidinium Brm/Vilanterol Tr 1 inh INHALATION Q24H 11/28/17 [Anoro Ellipta 62.5-25 Mcg INH] Surgical History: - - Cervical spine surgery, BLTL, L shoulder surgery, R heel spur removal, hiatal hernia repair with mesh Psychiatric History: Anxiety, Depression 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 Denies: Chills Eyes: Denies: Blurred vision, Double vision HEENT: Denies: Head Aches, Sinus Congestion, Sinus Drainage Cardiovascular: Denies: Chest Pain, Palpitations Respiratory: Denies: Cough, Shortness of breath at rest, Sputum production Gastrointestinal: Reports: Abdominal Pain, Hematochezia, Nausea. Denies: Vomiting Genitourinary: Denies: Dysuria Musculoskeletal: Denies: Joint Pain, Joint Tenderness Skin: Denies: Rash, Wounds Neurological: Denies: Numbness, Tingling, Focal weakness Psychiatric: Denies: Anxiety, Depression, Homicidal Ideations, Suicidal Ideations Hematologic/ Lymphatic: Denies: Easy Bruising, Easy Bleeding, Hx of blood clot VTE Information - Inpt Only VTE Present on Admission: No VTE Pharm Prophylaxis ordered?: Yes Patient Problems: Active and Suspected Problems (Last Reviewed 11/19/17 @ 12:55 by Husam Barney MD) Abdominal pain (Acute) Colitis (Acute) Lower GI bleed (Acute) Chronic kidney disease (Acute) Ischemic colitis (Acute) SIRS (systemic inflammatory response syndrome) (Acute) GI bleed (Acute) - Physical Exam General: Alert, Cooperative, - - Nontoxic. Afebrile. HEENT: Atraumatic, Normocephalic Oral: Moist Mucosa, No Gingival or Mucosal Lesions/ Ulcerations Neck: No Nodes, Thyroid Normal Size and Texture Lungs: Clear to auscultation, Normal air movement, No rhonchi, No wheeze Cardiovascular: Regular rate, Regular Rhythm, Normal S1, Normal S2, No murmurs Abdomen: Bowel Sounds Present, Soft, Non-Distended, No Hepato-splenomegaly, Rebound Tenderness, Tender - Left upper quadrant tenderness Extremities: No edema, Capillary Refill Less than 3 Seconds Skin: No rashes, No breakdown, - - sapp Musculoskeletal: No Tenderness to Palpation of Joints or Extremities Neurological: Neuro grossly intact, Muscle tone normal Psych/Mental Status: Normal Affect, Appropriate Vital Signs Temp Pulse Resp BP Pulse Ox 36.4 C L 116 H 16 158/87 H 91 12/09/17 15:25 12/09/17 18:49 12/09/17 18:49 12/09/17 18:49 12/09/17 18:49 Oxygen Delivery Method Nasal Cannula Weight: 102.058 kg Body Mass Index (BMI) 41.1 Finger Stick Blood Glucose 147 Microbiology Past 72 Hours 05/06/18 15:45 Stool Occult Blood (SHAYLA) - Final Stool Occult Blood Positive Laboratory Tests Past 24 Hrs 12/09/17 12/09/17 12/09/17 15:53 15:53 16:00 WBC RBC Hgb Hct MCV MCH MCHC RDW RDW Differential Plt Count MPV Immature Gran % (Auto) Neut % (Auto) Lymph % (Auto) [place] % (Auto) Eos % (Auto) Baso % (Auto) Absolute Neuts (auto) Absolute Lymphs (auto) Total Counted PT Cancelled INR Cancelled APTT Cancelled Sodium 141 Potassium 3.9 Chloride 109 H Carbon Dioxide 25.0 Anion Gap 7 BUN 17 Creatinine 1.45 H Estim Creat Clear Calc 33.86 Est GFR (MDRD) Af Amer 48 L Est GFR (MDRD) Non-Af 39 L BUN/Creatinine Ratio 11.7 Glucose 159 H Lactic Acid Calcium 9.1 Urine Color Yellow Urine Clarity Clear Urine pH 6.0 Ur Specific [place] 1.005 Urine Protein Negative Urine Glucose (UA) Normal Urine Ketones Negative Urine Occult Blood Negative Urine Nitrite Negative Urine Bilirubin Negative Urine Urobilinogen Normal Ur Leukocyte Esterase Negative Urine RBC Pending Urine WBC Pending Ur Squamous Epith Cells Pending Urine Bacteria Pending Urine Mucus Pending Blood Type Antibody Screen 12/09/17 12/09/17 12/09/17 16:15 16:15 16:55 WBC 12.6 H RBC 4.18 L Hgb 13.6 Hct 41.5 MCV 99.3 H MCH 32.5 H MCHC 32.8 RDW 14.1 RDW Differential 50.3 H Plt Count 246 MPV 10.1 Immature Gran % (Auto) 0.400 Neut % (Auto) 73.0 H Lymph % (Auto) 15.9 L [place] % (Auto) 9.6 Eos % (Auto) 0.9 Baso % (Auto) 0.2 Absolute Neuts (auto) 9.2 H Absolute Lymphs (auto) 2.00 Total Counted Not Reportable PT 13.2 INR 1.0 APTT 25.6 Sodium Potassium Chloride Carbon Dioxide Anion Gap BUN Creatinine Estim Creat Clear Calc Est GFR (MDRD) Af Amer Est GFR (MDRD) Non-Af BUN/Creatinine Ratio Glucose Lactic Acid Calcium Urine Color Urine Clarity Urine pH Ur Specific [place] Urine Protein Urine Glucose (UA) Urine Ketones Urine Occult Blood Urine Nitrite Urine Bilirubin Urine Urobilinogen Ur Leukocyte Esterase Urine RBC Urine WBC Ur Squamous Epith Cells Urine Bacteria Urine Mucus Blood Type O POSITIVE Antibody Screen NEGATIVE 12/09/17 18:30 WBC RBC Hgb Hct MCV MCH MCHC RDW RDW Differential Plt Count MPV Immature Gran % (Auto) Neut % (Auto) Lymph % (Auto) [place] % (Auto) Eos % (Auto) Baso % (Auto) Absolute Neuts (auto) Absolute Lymphs (auto) Total Counted PT INR APTT Sodium Potassium Chloride Carbon Dioxide Anion Gap BUN Creatinine Estim Creat Clear Calc Est GFR (MDRD) Af Amer Est GFR (MDRD) Non-Af BUN/Creatinine Ratio Glucose Lactic Acid 1.0 Calcium Urine Color Urine Clarity Urine pH Ur Specific [place] Urine Protein Urine Glucose (UA) Urine Ketones Urine Occult Blood Urine Nitrite Urine Bilirubin Urine Urobilinogen Ur Leukocyte Esterase Urine RBC Urine WBC Ur Squamous Epith Cells Urine Bacteria Urine Mucus Blood Type Antibody Screen Clinical Impression(s) from Imaging Studies Abdomen/Pelvis CT 12/09/17 15:40 IMPRESSION: There is mild wall thickening and surrounding inflammation in the distal transverse colon, probable mild focal colitis. There is no bowel obstruction. Again seen is diverticulosis of the distal colon. There is a moderate-sized hiatal hernia. There is no ascites, free air or significant lymphadenopathy. There is mild wall thickening in the urinary bladder, and a cystitis cannot be excluded. There is a small focus of air in the bladder which should be correlated with recent catheterization. Electronically Signed: Mercedes Belle MD at 18:10 EDT Tel Direct: [phone], Service support , Assessment/Plan Active and Suspected Problems (Last Reviewed 11/19/17 @ 12:55 by Husam Barney MD) Abdominal pain (Acute) Colitis (Acute) Lower GI bleed (Acute) Chronic kidney disease (Acute) Ischemic colitis (Acute) SIRS (systemic inflammatory response syndrome) (Acute) GI bleed (Acute) 1. Acute ischemic colitis Clinically this fits. Given patient's age and other comorbidities and its rapid onset. Will be treated empirically with ciprofloxacin and Flagyl. I doubt inflammatory colitis as patient has never had this before and this began suddenly. Pain control 2. GI bleed Secondary to above Resolved at the time being Dr. Ramirez is on consult and case any procedures are necessary. Patient informed if bleeding becomes worse or varun bleeding that she may need to be transferred to tertiary facility to have potential embolization of a bleeding vessel. I do not feel that it is necessary at this time. Patient will need a colonoscopy at some point but I told the patient that it may not be during this hospitalization. 3. Systemic inflammatory response syndrome Patient meets criteria with tachycardia and tachypnea This is due to the ischemic colitis. I do not feel that there is any active infection going on the patient is being empirically treated with the antibiotics for the ischemic colitis 4. DVT prophylaxis with SCDs. Chemical prophylaxis is contraindicated with the GI bleed. Code Visit Inpatient E&M: 87019 Init Hosp L3
--- NOTE | 2017-12-09 19:20 | HP.PCM_ITS ---
Problem List (1) Ischemic colitis Status: Acute (2) SIRS (systemic inflammatory response syndrome) Status: Acute (3) GI bleed Status: Acute (4) Gastro-esophageal reflux disease without esophagitis Status: Chronic (5) Epigastric pain Status: Chronic (6) Colitis Status: Acute (7) Lower GI bleed Status: Acute (8) Chronic kidney disease Status: Acute (9) Tobacco dependence in remission Status: Chronic (10) History of repair of hiatal hernia Status: Resolved (11) Cervical vertebral fusion Status: Resolved (12) Cervical radiculitis Status: Chronic (13) Fibromyalgia Status: Chronic (14) COPD (chronic obstructive pulmonary disease) Status: Chronic (15) Anxiety Status: Chronic (16) Hyperlipidemia Status: Chronic Qualifiers: (17) Tobacco use Status: Chronic Comment: on chantix (18) Hypertension Status: Chronic Qualifiers: (19) Obesity (BMI 30-39.9) Status: Chronic (20) Diabetes mellitus, type II Status: Chronic Qualifiers: (21) Chronic back pain Status: Chronic (22) CKD (chronic kidney disease) stage 3, GFR 30-59 ml/min Status: Chronic History of Present Illness Date of Admission: 12/09/17 Chief Complaint: abdominal pain. GI bleed. The patient is a 57 year old F is in her normal state of health but developed left ear quadrant abdominal pain this morning. Patient was up anyways because she has chronic reflux related with a hiatal hernia but then afterwards, patient had 3-4 bowel movements with blood clots. That has resolved. Patient still has abdominal pain. Patient had a CAT scan that showed transverse colitis. Dr. Ramirez was called and will be seeing the patient on consultation. Patient has never had any pain like this before nor any gastrointestinal bleeding before. [] Past Medical History Past Medical History (Chronic Problems): Chronic Problems (Last Reviewed 11/19/17 @ 12:55 by Husam Barney MD) Gastro-esophageal reflux disease without esophagitis (Chronic) Epigastric pain (Chronic) Tobacco dependence in remission (Chronic) Cervical radiculitis (Chronic) Fibromyalgia (Chronic) COPD (chronic obstructive pulmonary disease) (Chronic) Anxiety (Chronic) Hyperlipidemia (Chronic) Tobacco use (Chronic) on chantix Hypertension (Chronic) Obesity (BMI 30-39.9) (Chronic) Diabetes mellitus, type II (Chronic) Chronic back pain (Chronic) CKD (chronic kidney disease) stage 3, GFR 30-59 ml/min (Chronic) Allergies No Known Allergies Allergy (Verified 11/28/17 15:37) Home Medications: Ambulatory Orders Medication Instructions Recorded Cholecalciferol (VIT D3) [Vitamin 1,000 unit PO DAILY 10/08/15 D3] Lisinopril [Zestril] 5 mg PO DAILY 10/08/15 Simvastatin [Zocor] 20 mg PO QHS 10/08/15 Tizanidine HCl 4 mg PO QHS 10/08/15 Trazodone HCl 200 mg PO QHS 08/23/16 Hydrocodone Bitart/Apap 5-325 1 tab PO BID 04/23/17 [[place] 5/325] Bisacodyl [Dulcolax] 5 mg PO DAILY PRN 10/15/17 Duloxetine Hcl [Cymbalta] 60 mg PO DAILY 10/15/17 Linagliptin [Tradjenta] 5 mg PO DAILY 10/15/17 Meloxicam [Mobic] 7.5 mg PO DAILY 10/15/17 albuterol sulfate HFA 90 2 puff INHALATION Q6H PRN #1 device 11/08/17 mcg/actuation aerosol inhaler Ondansetron [Zofran Odt] 4 mg PO Q8H PRN PRN #10 tab 11/12/17 furosemide 20 mg tablet 20 mg PO BID tab 11/15/17 Calcium Carbonate [Tums] 200 mg PO PRN PRN 11/28/17 Gabapentin [Neurontin] 300 mg PO TID 11/28/17 Omeprazole Magnesium [Prilosec Otc] 20 mg PO DAILY 11/28/17 Umeclidinium Brm/Vilanterol Tr 1 inh INHALATION Q24H 11/28/17 [Anoro Ellipta 62.5-25 Mcg INH] Surgical History: - - Cervical spine surgery, BLTL, L shoulder surgery, R heel spur removal, hiatal hernia repair with mesh Psychiatric History: Anxiety, Depression 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 Denies: Chills Eyes: Denies: Blurred vision, Double vision HEENT: Denies: Head Aches, Sinus Congestion, Sinus Drainage Cardiovascular: Denies: Chest Pain, Palpitations Respiratory: Denies: Cough, Shortness of breath at rest, Sputum production Gastrointestinal: Reports: Abdominal Pain, Hematochezia, Nausea. Denies: Vomiting Genitourinary: Denies: Dysuria Musculoskeletal: Denies: Joint Pain, Joint Tenderness Skin: Denies: Rash, Wounds Neurological: Denies: Numbness, Tingling, Focal weakness Psychiatric: Denies: Anxiety, Depression, Homicidal Ideations, Suicidal Ideations Hematologic/ Lymphatic: Denies: Easy Bruising, Easy Bleeding, Hx of blood clot VTE Information - Inpt Only VTE Present on Admission: No VTE Pharm Prophylaxis ordered?: Yes Patient Problems: Active and Suspected Problems (Last Reviewed 11/19/17 @ 12:55 by Husam Barney MD) Abdominal pain (Acute) Colitis (Acute) Lower GI bleed (Acute) Chronic kidney disease (Acute) Ischemic colitis (Acute) SIRS (systemic inflammatory response syndrome) (Acute) GI bleed (Acute) - Physical Exam General: Alert, Cooperative, - - Nontoxic. Afebrile. HEENT: Atraumatic, Normocephalic Oral: Moist Mucosa, No Gingival or Mucosal Lesions/ Ulcerations Neck: No Nodes, Thyroid Normal Size and Texture Lungs: Clear to auscultation, Normal air movement, No rhonchi, No wheeze Cardiovascular: Regular rate, Regular Rhythm, Normal S1, Normal S2, No murmurs Abdomen: Bowel Sounds Present, Soft, Non-Distended, No Hepato-splenomegaly, Rebound Tenderness, Tender - Left upper quadrant tenderness Extremities: No edema, Capillary Refill Less than 3 Seconds Skin: No rashes, No breakdown, - - sapp Musculoskeletal: No Tenderness to Palpation of Joints or Extremities Neurological: Neuro grossly intact, Muscle tone normal Psych/Mental Status: Normal Affect, Appropriate Vital Signs Temp Pulse Resp BP Pulse Ox 36.4 C L 116 H 16 158/87 H 91 12/09/17 15:25 12/09/17 18:49 12/09/17 18:49 12/09/17 18:49 12/09/17 18:49 Oxygen Delivery Method Nasal Cannula Weight: 102.058 kg Body Mass Index (BMI) 41.1 Finger Stick Blood Glucose 147 Microbiology Past 72 Hours 05/06/18 15:45 Stool Occult Blood (SHAYLA) - Final Stool Occult Blood Positive Laboratory Tests Past 24 Hrs 12/09/17 12/09/17 12/09/17 15:53 15:53 16:00 WBC RBC Hgb Hct MCV MCH MCHC RDW RDW Differential Plt Count MPV Immature Gran % (Auto) Neut % (Auto) Lymph % (Auto) [place] % (Auto) Eos % (Auto) Baso % (Auto) Absolute Neuts (auto) Absolute Lymphs (auto) Total Counted PT Cancelled INR Cancelled APTT Cancelled Sodium 141 Potassium 3.9 Chloride 109 H Carbon Dioxide 25.0 Anion Gap 7 BUN 17 Creatinine 1.45 H Estim Creat Clear Calc 33.86 Est GFR (MDRD) Af Amer 48 L Est GFR (MDRD) Non-Af 39 L BUN/Creatinine Ratio 11.7 Glucose 159 H Lactic Acid Calcium 9.1 Urine Color Yellow Urine Clarity Clear Urine pH 6.0 Ur Specific [place] 1.005 Urine Protein Negative Urine Glucose (UA) Normal Urine Ketones Negative Urine Occult Blood Negative Urine Nitrite Negative Urine Bilirubin Negative Urine Urobilinogen Normal Ur Leukocyte Esterase Negative Urine RBC Pending Urine WBC Pending Ur Squamous Epith Cells Pending Urine Bacteria Pending Urine Mucus Pending Blood Type Antibody Screen 12/09/17 12/09/17 12/09/17 16:15 16:15 16:55 WBC 12.6 H RBC 4.18 L Hgb 13.6 Hct 41.5 MCV 99.3 H MCH 32.5 H MCHC 32.8 RDW 14.1 RDW Differential 50.3 H Plt Count 246 MPV 10.1 Immature Gran % (Auto) 0.400 Neut % (Auto) 73.0 H Lymph % (Auto) 15.9 L [place] % (Auto) 9.6 Eos % (Auto) 0.9 Baso % (Auto) 0.2 Absolute Neuts (auto) 9.2 H Absolute Lymphs (auto) 2.00 Total Counted Not Reportable PT 13.2 INR 1.0 APTT 25.6 Sodium Potassium Chloride Carbon Dioxide Anion Gap BUN Creatinine Estim Creat Clear Calc Est GFR (MDRD) Af Amer Est GFR (MDRD) Non-Af BUN/Creatinine Ratio Glucose Lactic Acid Calcium Urine Color Urine Clarity Urine pH Ur Specific [place] Urine Protein Urine Glucose (UA) Urine Ketones Urine Occult Blood Urine Nitrite Urine Bilirubin Urine Urobilinogen Ur Leukocyte Esterase Urine RBC Urine WBC Ur Squamous Epith Cells Urine Bacteria Urine Mucus Blood Type O POSITIVE Antibody Screen NEGATIVE 12/09/17 18:30 WBC RBC Hgb Hct MCV MCH MCHC RDW RDW Differential Plt Count MPV Immature Gran % (Auto) Neut % (Auto) Lymph % (Auto) [place] % (Auto) Eos % (Auto) Baso % (Auto) Absolute Neuts (auto) Absolute Lymphs (auto) Total Counted PT INR APTT Sodium Potassium Chloride Carbon Dioxide Anion Gap BUN Creatinine Estim Creat Clear Calc Est GFR (MDRD) Af Amer Est GFR (MDRD) Non-Af BUN/Creatinine Ratio Glucose Lactic Acid 1.0 Calcium Urine Color Urine Clarity Urine pH Ur Specific [place] Urine Protein Urine Glucose (UA) Urine Ketones Urine Occult Blood Urine Nitrite Urine Bilirubin Urine Urobilinogen Ur Leukocyte Esterase Urine RBC Urine WBC Ur Squamous Epith Cells Urine Bacteria Urine Mucus Blood Type Antibody Screen Clinical Impression(s) from Imaging Studies Abdomen/Pelvis CT 12/09/17 15:40 IMPRESSION: There is mild wall thickening and surrounding inflammation in the distal transverse colon, probable mild focal colitis. There is no bowel obstruction. Again seen is diverticulosis of the distal colon. There is a moderate-sized hiatal hernia. There is no ascites, free air or significant lymphadenopathy. There is mild wall thickening in the urinary bladder, and a cystitis cannot be excluded. There is a small focus of air in the bladder which should be correlated with recent catheterization. Electronically Signed: Mercedes Belle MD at 18:10 EDT Tel Direct: [phone], Service support , Assessment/Plan Active and Suspected Problems (Last Reviewed 11/19/17 @ 12:55 by Husam Barney MD) Abdominal pain (Acute) Colitis (Acute) Lower GI bleed (Acute) Chronic kidney disease (Acute) Ischemic colitis (Acute) SIRS (systemic inflammatory response syndrome) (Acute) GI bleed (Acute) 1. Acute ischemic colitis * Clinically this fits. Given patient's age and other comorbidities and its rapid onset. * Will be treated empirically with ciprofloxacin and Flagyl. * I doubt inflammatory colitis as patient has never had this before and this began suddenly. * Pain control 2. GI bleed * Secondary to above * Resolved at the time being * Dr. Ramirez is on consult and case any procedures are necessary. * Patient informed if bleeding becomes worse or varun bleeding that she may need to be transferred to tertiary facility to have potential embolization of a bleeding vessel. I do not feel that it is necessary at this time. * Patient will need a colonoscopy at some point but I told the patient that it may not be during this hospitalization. 3. Systemic inflammatory response syndrome * Patient meets criteria with tachycardia and tachypnea * This is due to the ischemic colitis. I do not feel that there is any active infection going on the patient is being empirically treated with the antibiotics for the ischemic colitis 4. DVT prophylaxis with SCDs. Chemical prophylaxis is contraindicated with the GI bleed. Code Visit Inpatient E&M: 90344 Init Hosp L3
[2017-12-09 20:29] VITALS: BP 117/69; BP 140/77; PULSE 110; RESP 18; TEMP 37.2; O2SAT 94; BMI 41.5; BMI 41.6
[2017-12-09] MEDS: 0.9% Normal Saline 1,000 ML 125 ML IV (21:04)
[2017-12-09] MEDS: traZODone 100 MG Tablet 200 MG PO (22:31)
[2017-12-09] MEDS: tiZANidine HCl 2 MG Tablet 4 MG PO (22:32)
[2017-12-09] MEDS: Gabapentin 600 MG Tablet 300 MG PO (22:37)
[2017-12-09 22:45] LABS: Bedside Glucose 173 mg/dL (70-110)
[2017-12-09 23:05] VITALS: PULSE 103
[2017-12-10] VITALS (19 sets, daily range): BP systolic 84–111; BP diastolic 44–80; PULSE 88–110; RESP 16–20; TEMP 36.6–37.1; O2SAT 90–98
[2017-12-10] MEDS: Ipratropium 0.5 MG/2.5 ML SOLUTION INHALATION ×4 (01:42→21:45)
[2017-12-10] MEDS: 0.9% Normal Saline 1,000 ML 125 ML IV ×2 (03:53→13:43)
[2017-12-10] MEDS: oxyCODONE 5 MG Tablet PO ×2 (05:36→17:22)
[2017-12-10 06:03] LABS: Hematocrit 34.2 % (37-47); Hemoglobin 10.7 g/dl (12.0-15.0); Mean Corp Hgb Conc 31.3 g/gl (32-36); Mean Corpuscular Hgb 31.4 pg (27.0-32.0); Mean Corpuscular Volume 100.3 fL (81-99); Mean Platelet Vol. 9.6 fl (6.2-12.0); Platelet Count 198 K/mm3 (150-450); RBC Distribution Width CV 14.4 % (11.6-14.6); RBC Distribution Width SD 52.5 fl (35.1-43.9); Red Blood Count 3.41 M/mm3 (4.2-5.4); White Blood Count 8.6 K/mm3 (4.4-11.0)
[2017-12-10 06:10] LABS: Scan Indicated on CBC? Y/N NO
[2017-12-10 06:21] LABS: Anion Gap 6 (5-15); BUN 13 mg/dL (7-18); BUN/Creat Ratio 10.9 RATIO (10-20); Calcium,Total 7.6 mg/dL (8.5-10.1); Chloride 113 mmol/L (98-107); Creatinine, Serum 1.19 mg/dL (0.55-1.02); EST Glomerular Filtration Rate 50 mL/min (>60); Est Glom Filt Rate - Afr Amer 60 mL/min (>60); Estimated Creatinine Clearance 41.25 ml/min; Glucose 159 mg/dL (74-106); Potassium 3.3 mmol/L (3.5-5.1); Sodium Level 148 mmol/L (136-145)
[2017-12-10 06:56] LABS: Bedside Glucose 153 mg/dL (70-110)
[2017-12-10] MEDS: Gabapentin 300 MG Capsule PO ×2 (09:13→17:22)
[2017-12-10] MEDS: Pantoprazole Sodium 20 MG Tablet PO ×2 (09:13→21:55)
[2017-12-10] MEDS: Ciprofloxacin 400 MG/200 ML BAG 200 MG IV (09:16)
[2017-12-10] MEDS: Acetaminophen 325 MG Tablet 650 MG PO ×2 (10:50→17:23)
--- NOTE | 2017-12-10 11:05 | CASEMGMT ---
Face to Face with patient for initial transition planning/care coordination assessment. RN HALLIE introduced self and role at [facility], pt voices understanding and consents to assessment at this time. Pt is sitting up in bed in no distress at this time. Pt is A/O x4 at this time and answers all questions appropriately at this time. Care providers, pharmacy, and demographics verified. See attached link. Pt voices no further concerns/needs at this time. Advised pt to ask for CM if any further questions/concerns/needs arise, voices understanding. CM to follow for any further discharge planning/needs. [place]
--- NOTE | 2017-12-10 11:33 | PCM.CONS.B ---
- Consult Date of Consult: 12/10/17 - Reason for Consult Chief Complaint: abdominal pain History of Present Illness: 57 y/o WF presents with complaint of abdominal pain and blood clots per rectum Has noted intermittant left upper quadrant abdominal pain for the past month. Described as sharp pain. Also noted rectal bleeding and blood clots in stools. Last had colonoscopy 6-7 years ago. Father had colon cancer, older than 60 y/o presentation. Has chronic constipation life long. Had episode of emesis yesterday. Denies hematemesis. Also noted coughing up small amounts of blood. States that she has a hiatal hernia - s/p hiatal hernia repair 2 years ago. Past Medical History: COPD obesity diabetes hypertension CKD Past Surgical History: hiatal hernia repair about 2 years ago Cataract surgery Left shoulder surgery Anterior neck vertebral surgery last year Medications: albuterol inhaler, dulcolax, calcium, vitamin D, cymbalta, lasix, neurontin, norco prn, tradjenta, zestril, mobic, prilosec, zofran, miralax, zocor, tizanidine, trazodone Allergies: Has no known drug allergies Social history: TOB use denies ETOH use minimal, occasional social only Review of Systems: General - denies weight loss, notes low grade subjective fevers Cardiovascular has occasional chest pain Pulmonary has shortness of breath with exertion Gastrointestinal as per HPI, notes blood in stools Neurological denies seizures Genitourinary denies burning with urination, denies blood in urine Hematological denies spontaneous/prolonged bleeding Skin denies open nonhealing wounds Musculoskeletal has back pain Endocrine has diabetes Psychological denies hallucinations Physical examination: Vital signs Temp 97.2F HR 94 RR 16 BP 117/56 General WD/WN WF in no apparent distress, alert and oriented HEENT Normocephalic. EOM intact with sclera clear and no icterus noted. Neck is supple with no jugular venous distention noted. Trachea is midline. Lungs clear to auscultation. normal breath sounds. No rales/rhonchi/wheezing noted. No labored breathing noted, such as retractions. Heart normal S1 and S2 auscultated. No rubs/clicks/murmurs noted. . Abdomen soft and benign, but tender in left upper quadrant but no peritoneal signs noted, normal bowel sounds Extremities no calf tenderness noted. No pitting edema noted. Genitourinary/Rectal deferred Skin normal skin integrity. Neurological no focal deficits. Psychological normal affect, patient is calm and appropriate Labs: WBC 12.6K, Hct 41.5, Plt 246K Impression: probable ischemic colitis multiple medical problem Discussion/Plan: I have discussed the above with the patient. I have offered colonosocpy for evaluation. I have explained the procedure to the patient. I have counseled the patient as to the risks of the procedure, including but not limited to: infection, bleeding, perforation of the GI tract, inability to complete the procedure, injury to any internal organs such as liver/spleen, complications of anesthesia, postoperative pneumonia/cardiac problems/blood clots etc. the patient understands. She agrees to proceed. I have answered all questions to the patients satisfaction and the patient has no further questions.
--- NOTE | 2017-12-10 11:37 | CON.PCM_ITS ---
- Consult Date of Consult: 12/10/17 - Reason for Consult Chief Complaint: abdominal pain History of Present Illness: 57 y/o WF presents with complaint of abdominal pain and blood clots per rectum Has noted intermittant left upper quadrant abdominal pain for the past month. Described as sharp pain. Also noted rectal bleeding and blood clots in stools. Last had colonoscopy 6-7 years ago. Father had colon cancer, older than 60 y/o presentation. Has chronic constipation life long. Had episode of emesis yesterday. Denies hematemesis. Also noted coughing up small amounts of blood. States that she has a hiatal hernia - s/p hiatal hernia repair 2 years ago. Past Medical History: COPD obesity diabetes hypertension CKD Past Surgical History: hiatal hernia repair about 2 years ago Cataract surgery Left shoulder surgery Anterior neck vertebral surgery last year Medications: albuterol inhaler, dulcolax, calcium, vitamin D, cymbalta, lasix, neurontin, norco prn, tradjenta, zestril, mobic, prilosec, zofran, miralax, zocor, tizanidine, trazodone Allergies: Has no known drug allergies Social history: TOB use denies ETOH use minimal, occasional social only Review of Systems: General - denies weight loss, notes low grade subjective fevers Cardiovascular has occasional chest pain Pulmonary has shortness of breath with exertion Gastrointestinal as per HPI, notes blood in stools Neurological denies seizures Genitourinary denies burning with urination, denies blood in urine Hematological denies spontaneous/prolonged bleeding Skin denies open nonhealing wounds Musculoskeletal has back pain Endocrine has diabetes Psychological denies hallucinations Physical examination: Vital signs Temp 97.2F HR 94 RR 16 BP 117/56 General WD/WN WF in no apparent distress, alert and oriented HEENT Normocephalic. EOM intact with sclera clear and no icterus noted. Neck is supple with no jugular venous distention noted. Trachea is midline. Lungs clear to auscultation. normal breath sounds. No rales/rhonchi/ wheezing noted. No labored breathing noted, such as retractions. Heart normal S1 and S2 auscultated. No rubs/clicks/murmurs noted. . Abdomen soft and benign, but tender in left upper quadrant but no peritoneal signs noted, normal bowel sounds Extremities no calf tenderness noted. No pitting edema noted. Genitourinary/Rectal deferred Skin normal skin integrity. Neurological no focal deficits. Psychological normal affect, patient is calm and appropriate Labs: WBC 12.6K, Hct 41.5, Plt 246K Impression: probable ischemic colitis multiple medical problem Discussion/Plan: I have discussed the above with the patient. I have offered colonosocpy for evaluation. I have explained the procedure to the patient. I have counseled the patient as to the risks of the procedure, including but not limited to: infection, bleeding, perforation of the GI tract, inability to complete the procedure, injury to any internal organs such as liver/spleen, complications of anesthesia , postoperative pneumonia/cardiac problems/blood clots etc. the patient understands. She agrees to proceed. I have answered all questions to the patient?s satisfaction and the patient has no further questions.
[2017-12-10] MEDS: DULoxetine Hcl 30 MG Capsule PO (11:41)
[2017-12-10 12:21] LABS: Bedside Glucose 151 mg/dL (70-110)
--- NOTE | 2017-12-10 15:09 | PN_ITS ---
Patient Problems: Active and Suspected Problems (Last Reviewed 11/19/17 @ 12:55 by Husam Barney MD) Abdominal pain (Acute) Colitis (Acute) Lower GI bleed (Acute) Chronic kidney disease (Acute) Ischemic colitis (Acute) SIRS (systemic inflammatory response syndrome) (Acute) GI bleed (Acute) Subjective: Patient is a 57-year-old female with morbid obesity, GERD with history of antireflux surgery, history of cervical vertebral fusion, fibromyalgia, COPD, anxiety, hyperlipidemia, tobacco dependence, hypertension, diabetes mellitus type 2, chronic back pain and chronic renal failure stage III who presented to the emergency department at [facility] on 12/09/2017 complaining of abdominal pain. She was sitting on the toilet for 1 hour and then then had a BM with clots in it. She also had Nausea and an emesis that looked brown. She has not had a bowel movement, passed any clots per rectum or had vomiting since admission. No signs of presentation to the emergency room were temperature 97.6 , pulse rate 119, blood pressure 170/80, respiratory rate 16 and her oxygen saturation was 96% on room air. Orthostatic vital signs were negative. Labs showed a mildly elevated white blood cell count at 12.6 with 73% neutrophils. Hemoglobin was 13.6 and platelets were within normal limits. PT and PTT were unremarkable. Electrolytes were within normal limits and the BUN was 17 with a creatinine of 1.45. Lactic acid was 1.0 and UA was unremarkable. Rectal exam revealed heme positive stool. A CT scan of the abdomen and pelvis showed an unremarkable liver, unremarkable gallbladder and biliary ducts, unremarkable spleen and unremarkable pancreas. Knees were unremarkable. There was a moderate sized hiatal hernia and diverticuli of the distal colon. There was mild wall thickening with surrounding stranding in the distal transverse colon. She was admitted to the hospital and started on Cipro and Flagyl. She was seen in consultation by Dr. Ramirez this AM and her plan is a colonoscopy. She has been afebrile since admission. Sinus tachycardia resolved with hydration. Blood pressure was low on 12/10 but today is WNL but, her antihypertensive was held. EGD done on 12/05/2017 showed mild erythema of the duodenum but the esophagus and stomach were unremarkable and there was a sliding hiatal hernia present. She tells me her pain is adequately managed with Oxy IR 10 mg.....has not required any IV narcotics since being transferred from the ER. He continues to complain of abdominal pain and rates her pain as 7 out of 10 presently but appears in no acute distress. He has not had a bowel movement, clots per rectum or vomiting since admission. Lab today shows a normal white blood cell count at 8.6 with hemoglobin of 10.7 and platelets of 198,000. Potassium is mildly decreased at 3.3 and the sodium is mildly increased at 148. The BUN is 13 with a creatinine of 1.19, down from 1.45 at admission. Sugars are adequately controlled. - Physical Exam General: Alert, Oriented x3, Cooperative, No apparent distress, - - She is tanned and also has a sunburn over the anterior chest from a tanning naylor. HEENT: Atraumatic, PERRLA, EOMI Oral: No Gingival or Mucosal Lesions/ Ulcerations, Dry Mucosa Neck: Supple, Negative Carotid Bruits Lungs: Clear to auscultation Cardiovascular: Regular rate, Regular Rhythm, Normal S1, Normal S2, No murmurs, No Gallop Abdomen: Bowel Sounds Present, Soft, Non-Distended, - - She is tender to palpation in the LUQ but no guarding with palpation Extremities: No clubbing, No cyanosis, Edema - 1+ or the distal LE's Skin: No breakdown Musculoskeletal: No Muscle Wasting Neurological: Cranial nerves II-XII grossly intact, Neuro grossly intact Psych/Mental Status: Appropriate, Flat Affect Vital Signs Temp Pulse Resp BP Pulse Ox 97.9 F 89 18 111/80 98 12/10/17 14:44 12/10/17 14:44 12/10/17 14:44 12/10/17 14:44 12/10/17 14:44 Oxygen Delivery Method Room Air Weight: 227 lb 3.017 oz Body Mass Index (BMI) 41.5 Intake and Output for Last 24 Hours 12/08/17 12/09/17 12/10/17 23:59 23:59 23:59 Intake Total 850 / 850 2152.4 / 2152.4 Balance 850 / 850 2152.4 / 2152.4 Laboratory Tests Past 24 Hrs 12/10/17 12/10/17 05:25 05:25 WBC 8.6 RBC 3.41 L Hgb 10.7 L Hct 34.2 L MCV 100.3 H MCH 31.4 MCHC 31.3 L RDW 14.4 RDW Differential 52.5 H Plt Count 198 MPV 9.6 Sodium 148 H Potassium 3.3 L Chloride 113 H Carbon Dioxide 29.0 Anion Gap 6 BUN 13 Creatinine 1.19 H Estim Creat Clear Calc 41.25 Est GFR (MDRD) Af Amer 60 Est GFR (MDRD) Non-Af 50 L BUN/Creatinine Ratio 10.9 Glucose 159 H Calcium 7.6 L POC Glucose 12/10/17 12/10/17 12/09/17 11:29 06:51 22:35 POC Glucose 151 H 153 H 173 H Medical Necessity - Tobacco Use Smoking Status: Former smoker Assessment/Plan Active and Suspected Problems (Last Reviewed 11/19/17 @ 12:55 by Husam Barney MD) Abdominal pain (Acute) Colitis (Acute) Lower GI bleed (Acute) Chronic kidney disease (Acute) Ischemic colitis (Acute) SIRS (systemic inflammatory response syndrome) (Acute) GI bleed (Acute) Impressions 1. Abdominal pain with lower GI bleeding - ? focal colitis in the transverse colon. Afebrile and with normal WBC today. Doubt infectious colitis. There is a FH of colon CA. discussed with Dr. Ramirez. will proceed with endoscopy tomorrow afternoon. 2. Hypokalemia-supplemented 3. Hypernatremia and hyperchloremia-IV fluid changed to 0.45 normal saline with 20 of K 4. Chronic low back pain 5. History of a cervical fusion 6. Diabetes mellitus type 2 7. Recent EGD with mild duodenitis but with an unremarkable esophagus. 8. Sliding hiatal hernia with GERD 9. Tobacco dependence 10. Fibromyalgia 11. COPD 12. Anxiety 13. Hyperlipidemia 14. Morbid obesity 15. Chronic renal failure stage III 16. Colonic diverticulosis 17. Chronic constipation I suspect there is no infection.....will continue antibiotics for another 24 hours but, if she remains stable with no fever and normal WBC will DC the antibiotics. Daily stool softener at CT. Code Visit Inpatient E&M: 69763 Subs Hosp L2
[2017-12-10] MEDS: Enoxaparin 40 MG/0.4 ML Syringe SC (17:22)
[2017-12-10] MEDS: Piperacil/Tazobactam 3.375 GM/50 ML ML IV ×2 (17:22→21:54)
[2017-12-10 19:01] LABS: Bedside Glucose 111 mg/dL (70-110)
[2017-12-10] MEDS: Morphine 4 MG/ML Syringe IV (20:15)
[2017-12-10] MEDS: 0.9% NaCl Peripheral Flush Adult/Peds IV (20:16)
[2017-12-10] MEDS: traZODone 100 MG Tablet 200 MG PO (21:54)
[2017-12-10] MEDS: tiZANidine HCl 2 MG Tablet 4 MG PO (22:01)
[2017-12-10] MEDS: Gabapentin 600 MG Tablet 300 MG PO (22:01)
[2017-12-11] VITALS (18 sets, daily range): BP systolic 91–146; BP diastolic 57–98; PULSE 86–115; RESP 14–18; TEMP 36.3–36.9; O2SAT 92–95; BMI 41.5
[2017-12-11] MEDS: Electrolyte Solution/Peg's 4000 ML 2000 ML PO (05:50)
[2017-12-11] MEDS: Piperacil/Tazobactam 3.375 GM/50 ML ML IV ×3 (06:05→21:33)
[2017-12-11] MEDS: 0.9% NaCl Peripheral Flush Adult/Peds IV ×2 (06:06→12:03)
[2017-12-11] MEDS: Morphine 4 MG/ML Syringe IV ×2 (06:06→12:03)
[2017-12-11 06:10] LABS: Absolute Lymphocyte Count 1.94 X10^3/ul (0.83-4.51); Absolute Neutrophil Count 4.7 X10^3/uL (2.0-7.7); Basophil# 0.02 X10^3/uL; Basophil% 0.3 % (0-1); Eosinophil# 0.12 X10^3/uL; Eosinophils% 1.6 % (0-5); Hematocrit 33.6 % (37-47); Hemoglobin 10.5 g/dl (12.0-15.0); Lymphocyte # 1.94 X10^3/ul (4.0); Lymphocyte % 25.9 % (19-41); Mean Corp Hgb Conc 31.3 g/gl (32-36); Mean Corpuscular Hgb 32.2 pg (27.0-32.0); Mean Corpuscular Volume 103.1 fL (81-99); Monocyte# 0.72 X10^3/uL; Monocyte% 9.6 % (0-10); Neutrophil # 4.67 X10^3/uL (2.7-7.7); Neutrophil % 62.3 % (47-70); POSITIVE COUNT NO; POSITIVE DIFFERENTIAL NO; POSITIVE MORPHOLOGY NO; Platelet Count 185 K/mm3 (150-450); RBC Distribution Width CV 13.8 % (11.6-14.6); RBC Distribution Width SD 51.1 fl (35.1-43.9); Red Blood Count 3.26 M/mm3 (4.2-5.4); White Blood Count 7.5 K/mm3 (4.4-11.0)
[2017-12-11 06:11] LABS: ALB/GLOB Ratio 0.9 RATIO (0.9-2.4); AST(SGOT) 11 U/L (15-37); Alanine Aminotransfer ALT/SGPT 12 U/L (13-56); Albumin, Serum 2.5 g/dL (3.2-5.0); Alkaline Phosphatase 63 U/L (45-117); Anion Gap 5 (5-15); BUN 10 mg/dL (7-18); Calcium,Total 7.8 mg/dL (8.5-10.1); Chloride 112 mmol/L (98-107); Creatinine, Serum 1.11 mg/dL (0.55-1.02); EST Glomerular Filtration Rate 54 mL/min (>60); Est Glom Filt Rate - Afr Amer 65 mL/min (>60); Estimated Creatinine Clearance 44.23 ml/min; Globulin 2.9 g/dL (2.2-4.2); Glucose 136 mg/dL (74-106); Magnesium 1.8 mg/dL (1.6-2.6); Potassium 3.8 mmol/L (3.5-5.1); Protein, Total 5.4 g/dL (6.4-8.2); Sodium Level 147 mmol/L (136-145)
[2017-12-11 07:06] LABS: Bedside Glucose 133 mg/dL (70-110)
[2017-12-11] MEDS: Gabapentin 300 MG Capsule PO ×2 (09:43→17:48)
[2017-12-11] MEDS: Pantoprazole Sodium 20 MG Tablet PO ×2 (09:43→21:33)
[2017-12-11] MEDS: DULoxetine Hcl 60 MG Capsule PO (09:44)
[2017-12-11 11:35] LABS: Bedside Glucose 118 mg/dL (70-110)
--- NOTE | 2017-12-11 14:10 | NURSING ---
Called report to [facility]ODRIGUE[facility] in [place]
[2017-12-11 14:30] LABS: Bedside Glucose 125 mg/dL (70-110)
--- NOTE | 2017-12-11 15:47 | COLBX_PTH ---
PATIENT: MARGARITA JOSHI LOC: PCU U#:[id number] AGE/SX: 57/F ROOM: [facility] [place] RE12/09/[address]: Dr. Devora Lilly DO : 1960 BED: 1 DIS: 12/12/2017 SPEC #: [id number] RECD: 12/11/17 16:19 STATUS: NATALIE DAMARI #: [id number] TAYLER: 12/11/17 15:[address]: Noelle Ramirez DEPT: SURGICAL PATHOLOGY RECD BY: Tran Lynn ENTERED: 12/12/17 09:22 SP TYPE: COLON BX OTHR DR: MD Dr. Devora Jimenez DO Dr. Eric Jopperi, DO Tissues: SPLENIC FLEXURE Procedures: Surgery Specimen Level IV HEADER OPERATION: Colonoscopy with biopsy PRE-OP DIAGNOSIS: Ischemic colitis TISSUE SUBMITTED: Biopsy splenic flexure MICROSCOPIC DIAGNOSIS Colon at splenic flexure, biopsy: Consistent with ischemic colitis. AM:essie 12/13/17 MICROSCOPIC DESCRIPTION Slides are reviewed. GROSS DESCRIPTION Received in fixative is one container labeled with the patient's name and designated splenic flexure. The specimen consists of multiple irregular fragments of light sapp soft tissue that in aggregate measure 1 x 0.2 x 0.1 cm. The specimen is totally submitted in one cassette. / SJ:essie 12/12/17 TC:3 CPT: 72586
--- NOTE | 2017-12-11 16:53 | PCM.OPRPT ---
Report of Operation Date of Procedure: 12/11/17 Pre-Operative Diagnosis: wall thickening on CT scan of distal transverse colon Post-Operative Diagnosis: mucosal erythema of splenic flexure - probable ischemic colitis, no evidence of gangrene Surgery/Procedure Performed:: colonoscopy with biopsies Description of Surgical Findings:: mucosal abnormality of splenic flexure area - with friability/slight nodularity/erythema - on gangrene noted Type of Anesthesia:: MAC Anesthesiologist: Tani Braswell Specimen's removed: mucosal biopsies of splenic flexure Estimated Blood Loss (mL): minimal Fluids Replaced: see anesthesia note Description of Procedure: After informed consent was given, the patient was brought to the endoscopy suite and placed in the supine position. Appropriate time out protocol was followed. Appropriate cardiac, blood pressure, and pulse oximetry monitoring was placed. After stable vital signs were noted, the patient was given intravenous conscious sedation by the anesthesia provider. The patient was then placed in the left lateral decubitis position. The colonoscope was lubricated and carefully inserted into the patients anus. It was then advanced into the rectum, then into the sigmoid colon, then into the left descending colon, past the splenic flexure, into the transverse colon, past the hepatic flexure, then down into the right descending colon and into the cecum. The cecum was identified by: confluence of the tenae coli, identification of the ileocecal valve and external pressure with indentation. The colonoscope was slowly retracted back and the entire colonic mucosa was examined. In the area of the splenic flexure, the mucosa was friable and erythematous. Slight nodularity appearing. No evidence of gangrene. Mucosal biopsies were taken with cold grasper forceps. The remainder of the colon appeared normal except for noting diverticulosis and hemorrhoidal disease. The colonoscope was removed intact. Patient tolerated procedure well. - Complications none noted
--- NOTE | 2017-12-11 16:57 | OP.PCM_ITS ---
Report of Operation Date of Procedure: 12/11/17 Pre-Operative Diagnosis: wall thickening on CT scan of distal transverse colon Post-Operative Diagnosis: mucosal erythema of splenic flexure - probable ischemic colitis, no evidence of gangrene Surgery/Procedure Performed:: colonoscopy with biopsies Description of Surgical Findings:: mucosal abnormality of splenic flexure area - with friability/slight nodularity/ erythema - on gangrene noted Type of Anesthesia:: MAC Anesthesiologist: Tani Braswell Specimen's removed: mucosal biopsies of splenic flexure Estimated Blood Loss (mL): minimal Fluids Replaced: see anesthesia note Description of Procedure: After informed consent was given, the patient was brought to the endoscopy suite and placed in the supine position. Appropriate time out protocol was followed. Appropriate cardiac, blood pressure, and pulse oximetry monitoring was placed. After stable vital signs were noted, the patient was given intravenous conscious sedation by the anesthesia provider. The patient was then placed in the left lateral decubitis position. The colonoscope was lubricated and carefully inserted into the patient?s anus. It was then advanced into the rectum, then into the sigmoid colon, then into the left descending colon, past the splenic flexure, into the transverse colon, past the hepatic flexure, then down into the right descending colon and into the cecum. The cecum was identified by: confluence of the tenae coli, identification of the ileocecal valve and external pressure with indentation. The colonoscope was slowly retracted back and the entire colonic mucosa was examined. In the area of the splenic flexure, the mucosa was friable and erythematous. Slight nodularity appearing. No evidence of gangrene. Mucosal biopsies were taken with cold grasper forceps. The remainder of the colon appeared normal except for noting diverticulosis and hemorrhoidal disease. The colonoscope was removed intact. Patient tolerated procedure well. - Complications none noted
[2017-12-11] MEDS: oxyCODONE 5 MG Tablet PO (17:48)
[2017-12-11 17:56] LABS: Bedside Glucose 115 mg/dL (70-110)
--- NOTE | 2017-12-11 18:23 | PN_ITS ---
Patient Problems: Active and Suspected Problems (Last Reviewed 11/19/17 @ 12:55 by Husam Barney MD) Abdominal pain (Acute) Colitis (Acute) Lower GI bleed (Acute) Chronic kidney disease (Acute) Ischemic colitis (Acute) SIRS (systemic inflammatory response syndrome) (Acute) GI bleed (Acute) Subjective: Antibiotics day #3-Zosyn Afebrile since admission. Heart rate is in the 90s. Blood pressure has ranged from 128/86-140 4/98 today. White blood cell count today is 7.5 with a normal differential. Hemoglobin is stable and is 10.5. Sodium is increased at 147 with a chloride of 112. BUN is 10 and the creatinine is 1.11. LFTs are normal. Magnesium is normal at 1.8. Blood sugars are well controlled. Blood cultures have no growth to date. Colonoscopy was performed by Dr. Ramirez today and showed mucosal erythema at the splenic flexure with friability/slight nodularity/erythema. There was no gangrene noted. Biopsies of the mucosa at the splenic flexure were taken. She continues to complain of left upper quadrant abdominal pain. She has had no further blood per rectum. She denies nausea and has had no emesis. She denies chest pain and also denies shortness of breath. Objective: - Physical Exam General: Alert, Oriented x3, Cooperative, she is a little drowsy after the colonoscopy HEENT: Atraumatic, PERRLA, EOMI Oral: No Gingival or Mucosal Lesions/ Ulcerations, Dry Mucosa Neck: Supple, Negative Carotid Bruits Lungs: Clear to auscultation Cardiovascular: Regular rate, Regular Rhythm, Normal S1, Normal S2, No murmurs, No Gallop. Abdomen: Bowel Sounds Present, Soft, Non-Distended, - - She is tender to palpation in the LUQ but no guarding with palpation Extremities: No clubbing, No cyanosis, Edema - 1+ or the distal LE's Skin: No breakdown Musculoskeletal: No Muscle Wasting Neurological: Cranial nerves II-XII grossly intact, Neuro grossly intact Psych/Mental Status: Appropriate, Flat Affect - Physical Exam Vital Signs Temp Pulse Resp BP Pulse Ox 97.8 F 95 18 140/70 H 94 12/11/17 16:56 12/11/17 16:56 12/11/17 16:56 12/11/17 16:56 12/11/17 16:56 Oxygen Delivery Method Room Air Weight: 227 lb 3.017 oz Body Mass Index (BMI) 41.5 Intake and Output for Last 24 Hours 12/09/17 12/10/17 12/11/17 23:59 23:59 23:59 Intake Total 850 / 850 4302.4 / 4302.4 3954.2 / 3954.2 Balance 850 / 850 4302.4 / 4302.4 3954.2 / 3954.2 Laboratory Tests Past 24 Hrs 12/11/17 12/11/17 05:30 05:30 WBC 7.5 RBC 3.26 L Hgb 10.5 L Hct 33.6 L MCV 103.1 H MCH 32.2 H MCHC 31.3 L RDW 13.8 RDW Differential 51.1 H Plt Count 185 MPV 10.0 Immature Gran % (Auto) 0.300 Neut % (Auto) 62.3 Lymph % (Auto) 25.9 [place] % (Auto) 9.6 Eos % (Auto) 1.6 Baso % (Auto) 0.3 Absolute Neuts (auto) 4.7 Absolute Lymphs (auto) 1.94 Total Counted Not Reportable Sodium 147 H Potassium 3.8 Chloride 112 H Carbon Dioxide 30.0 Anion Gap 5 BUN 10 Creatinine 1.11 H Estim Creat Clear Calc 44.23 Est GFR (MDRD) Af Amer 65 Est GFR (MDRD) Non-Af 54 L BUN/Creatinine Ratio 9.0 L Glucose 136 H Calcium 7.8 L Magnesium 1.8 Total Bilirubin 0.20 AST 11 L ALT 12 L Alkaline Phosphatase 63 Total Protein 5.4 L Albumin 2.5 L Globulin 2.9 Albumin/Globulin Ratio 0.9 POC Glucose 12/11/17 12/11/17 12/11/17 17:52 14:20 11:31 POC Glucose 115 H 125 H 118 H 12/11/17 12/10/17 06:52 18:56 POC Glucose 133 H 111 H Medical Necessity - Tobacco Use Smoking Status: Former smoker Assessment/Plan Active and Suspected Problems (Last Reviewed 11/19/17 @ 12:55 by Husam Barney MD) Abdominal pain (Acute) Colitis (Acute) Lower GI bleed (Acute) Chronic kidney disease (Acute) Ischemic colitis (Acute) SIRS (systemic inflammatory response syndrome) (Acute) GI bleed (Acute) Impressions 1. Abdominal pain with lower GI bleeding - friability/nodularity.erythema at the splenic flexure.....ischemic colitis expected, biopsies are pending Afebrile and with normal WBC. Doubt infectious colitis but will continue Zosyn for another 24 -48 hours. There is a FH of colon CA. 2. Hypokalemia-supplemented 3. Hypernatremia and hyperchloremia-IV fluid changed to 0.45 normal saline with 20 of K 4. Chronic low back pain 5. History of a cervical fusion 6. Diabetes mellitus type 2 - well cotrolled 7. Recent EGD with mild duodenitis but with an unremarkable esophagus. 8. Sliding hiatal hernia with GERD 9. Tobacco dependence 10. Fibromyalgia 11. COPD 12. Anxiety 13. Hyperlipidemia - well controlled 14. Morbid obesity 15. Chronic renal failure stage III 16. Colonic diverticulosis 17. Chronic constipation Continue clear liquids......advance to full liquids in the AM if no problems overnight. await the results of colon biopsies she has had recurrent abdominal pain for several years - if the biopsies are consistent with ischemic colitis will consider a CTA of the abdomen. continue the IV fluids. recheck lab in the AM continue the Zosyn tonight and if afebrile with normal WBC in the AM will likely Will need to Dc on a good bowel regimen.......daily Miralax and increase as needed to have a BM every 2-3 days. Advised she quit smoking in light of possible ischemic colitis Code Visit Inpatient E&M: 03024 Subs Hosp L2
[2017-12-11] MEDS: Acetaminophen 325 MG Tablet 650 MG PO (20:48)
[2017-12-11] MEDS: tiZANidine HCl 2 MG Tablet 4 MG PO (21:32)
[2017-12-11] MEDS: traZODone 100 MG Tablet 200 MG PO (21:33)
[2017-12-11] MEDS: Gabapentin 600 MG Tablet 300 MG PO (21:34)
[2017-12-11 21:40] LABS: Bedside Glucose 242 mg/dL (70-110)
[2017-12-12] VITALS (7 sets, daily range): BP systolic 103–138; BP diastolic 34–85; PULSE 84–103; RESP 16–18; TEMP 36.6–36.8; O2SAT 92–95
[2017-12-12] MEDS: Enoxaparin 40 MG/0.4 ML Syringe SC (05:25)
[2017-12-12] MEDS: Piperacil/Tazobactam 3.375 GM/50 ML ML IV ×2 (05:25→13:12)
[2017-12-12 09:21] LABS: Bedside Glucose 121 mg/dL (70-110)
[2017-12-12] MEDS: Gabapentin 300 MG Capsule PO ×2 (09:28→16:10)
[2017-12-12] MEDS: DULoxetine Hcl 60 MG Capsule PO (09:28)
[2017-12-12] MEDS: Pantoprazole Sodium 20 MG Tablet PO (09:28)
[2017-12-12] MEDS: oxyCODONE 5 MG Tablet PO (12:02)
[2017-12-12 12:05] LABS: Bedside Glucose 127 mg/dL (70-110)
[2017-12-12 16:15] LABS: Bedside Glucose 127 mg/dL (70-110)
--- NOTE | 2017-12-12 18:09 | PCM.DC ---
- Discharge Diagnoses Current Active Problems: Current Active and Chronic Problems (Last Reviewed 11/19/17 @ 12:55 by Husam Barney MD) Abdominal pain (Acute) Colitis (Acute) Lower GI bleed (Acute) Chronic kidney disease (Acute) Ischemic colitis (Acute) SIRS (systemic inflammatory response syndrome) (Acute) GI bleed (Acute) You will use the following diet at home:: Full liquid - stick to the full liquid for the next 24-48 hours and then advance to low residue for 2 weeks and then to High fiber when the colitis has resolved Your food should be the consistency of: Regular Your liquids should be the consistency of: Regular/Thin Discharge Activity: May not drive while taking narcotic pain medications. May resume sexual activity in: No Restrictions Call your doctor if you observe: Fever of 101 or Higher, Inability to have a bowel movement, Uncontrolled pain, - - large amounts of blood from the rectum.......more than a cup Instructions: Low-Residue Diet, Eating a High-Fiber Diet, Ischemic Colitis Additional Instructions: The biopsies of the colon are still pending. We think you have ischemic colitis....I am giving you some literature to explain what this is. Ischemic colitis can be caused by vascular disease....the same things that cause diease in the arteries in the heart and in the brain cause disease in the arteries supplying the intestine. If the blood pressure drops or if you get dehydrated then the flow in these arteries is further diminished and can lead to the colitis. Lasix can lead to dehydration and this can bring on decreased blood flow to the intestine......Your heart squeezes normally and I am not sure why you are taking lasix? It may not be the best drug for you. you should discuss this with your primary care doctor. Smoking is just going to make the vascular disease worse.....I suggest you stop is you already haven't. Stick to the low residue diet for at least 2 weeks before advancing to the high fiber diet. Make sure to drink enough water to keep the stool soft.....Lasix and narcotics can both lead to constipation. I have given you a prescription for Miralax and you should take this EVERYDAY to keep the stool soft. If you do not have a BM in 3 days take a laxative, like milk of magnesia. Some people have to take the Miralax twice a day to stay regular. Pending Tests on Discharge: path report on the colon biopsies Allergies/Adverse Reactions: Allergies No Known Allergies Allergy (Verified 11/28/17 15:37) Medications to take at Discharge Cholecalciferol (VIT D3) [Vitamin D3] 1,000 unit PO DAILY 10/08/15 Lisinopril [Zestril] 5 mg PO DAILY 10/08/15 Simvastatin [Zocor] 20 mg PO QHS 10/08/15 Tizanidine HCl 4 mg PO QHS 10/08/15 Trazodone HCl 200 mg PO QHS 08/23/16 Bisacodyl [Dulcolax] 5 mg PO DAILY PRN 10/15/17 Duloxetine Hcl [Cymbalta] 60 mg PO DAILY 10/15/17 Linagliptin [Tradjenta] 5 mg PO DAILY 10/15/17 Meloxicam [Mobic] 7.5 mg PO DAILY 10/15/17 albuterol sulfate HFA 90 mcg/actuation aerosol inhaler 2 puff INHALATION Q6H PRN #1 device 11/08/17 Ondansetron [Zofran Odt] 4 mg PO Q8H PRN PRN #10 tab 11/12/17 furosemide 20 mg tablet 20 mg PO BID tab 11/15/17 Calcium Carbonate [Tums] 200 mg PO PRN PRN 11/28/17 Gabapentin [Neurontin] 300 mg PO TID 11/28/17 Omeprazole Magnesium [Prilosec Otc] 20 mg PO DAILY 11/28/17 Umeclidinium Brm/Vilanterol Tr [Anoro Ellipta 62.5-25 Mcg INH] 1 inh INHALATION Q24H 11/28/17 Hydrocodone Bitart/Apap 5-325 [[place] 5/325] 1 tab PO Q4H PRN PRN 5 Days #20 tab 12/12/17 The following prescriptions were given: Hydrocodone Bitart/Apap 5-325 [[place] 5/325] 1 tab PO Q4H PRN PRN 5 Days #20 tab PRN Reason: Abdominal pain Primary Care Physician: Hua Mosher MD [Primary Care Provider] - Please follow up with your Primary Care Physician in: 7-10 days Please Follow Up With: Noelle Ramirez MD When: next week in the office to go over the biopsies Please Follow Up With: Adair Jauregui MD When: as previously scheduled Proposed Discharge Date: 12/12/17
--- NOTE | 2017-12-12 18:47 | PCM.DC.SUM ---
Discharge Date and Diagnosis Date of Admission: 12/09/17 Date of Discharge: 12/12/17 - Primary Discharge Diagnosis Active and Suspected Problems (Last Reviewed 11/19/17 @ 12:55 by Husam Barney MD) Lower GI bleed (Acute) Ischemic colitis (Acute) - due to ischemic colitis SIRS (systemic inflammatory response syndrome) (Acute) - Secondary Discharge Diagnosis Chronic Problems (Last Reviewed 11/19/17 @ 12:55 by Husam Barney MD) Constipation (Chronic) Diverticulosis (Chronic) Morbid obesity with BMI of 40.0-44.9, adult (Chronic) Gastro-esophageal reflux disease without esophagitis (Chronic) Epigastric pain (Chronic) History of repair of hiatal hernia (Chronic) Cervical vertebral fusion (Chronic) Cervical radiculitis (Chronic) Fibromyalgia (Chronic) COPD (chronic obstructive pulmonary disease) (Chronic) Anxiety (Chronic) Hyperlipidemia (Chronic) Tobacco use (Chronic) on chantix Hypertension (Chronic) Diabetes mellitus, type II (Chronic) Chronic back pain (Chronic) CKD (chronic kidney disease) stage 3, GFR 30-59 ml/min (Chronic) Hospital Course and Treatment Imaging Results: Clinical Impression(s) from Imaging Studies Abdomen/Pelvis CT 12/09/17 15:40 IMPRESSION: There is mild wall thickening and surrounding inflammation in the distal transverse colon, probable mild focal colitis. There is no bowel obstruction. Again seen is diverticulosis of the distal colon. There is a moderate-sized hiatal hernia. There is no ascites, free air or significant lymphadenopathy. There is mild wall thickening in the urinary bladder, and a cystitis cannot be excluded. There is a small focus of air in the bladder which should be correlated with recent catheterization. Electronically Signed: Mercedes Belle MD at 18:10 EDT Tel Direct: [phone], Service support , Laboratory Results - last 24 hr 12/11/17 12/12/17 12/12/17 21:32 06:57 11:58 POC Glucose 242 H 121 H 127 H 12/12/17 16:09 POC Glucose [address] Noelle Ramirez[facility] general surgery Operations: None Procedures: Colonoscopy - Mucosal erythema of splenic flexure-probable ischemic colitis, no evidence of gangrene. The mucosa was friable and slightly nodular. There was also diverticulosis and hemorrhoidal disease Summary of Care Provided: The patient is a 57-year-old female with morbid obesity, GERD with history of antireflux surgery, chronic constipation, history of cervical vertebral fusion, fibromyalgia, COPD, anxiety, hyperlipidemia, tobacco dependence, hypertension, diabetes mellitus type 2, chronic back pain and chronic renal failure stage III who presented to the emergency department at [facility] on 12/09/2017 complaining of abdominal pain. She was sitting on the toilet for 1 hour trying to have a BM and then then had a BM with clots in it. She also had Nausea and an emesis that looked brown. Vital signs at presentation to the emergency room were temperature 97.6, pulse rate 119, blood pressure 170/80, respiratory rate 16 and her oxygen saturation was 96% on room air. Orthostatic vital signs were negative. Labs showed a mildly elevated white blood cell count at 12.6 with 73% neutrophils. Hemoglobin was 13.6 and platelets were within normal limits. PT and PTT were unremarkable. Electrolytes were within normal limits and the BUN was 17 with a creatinine of 1.45. Lactic acid was 1.0 and UA was unremarkable. Rectal exam revealed heme positive stool. A CT scan of the abdomen and pelvis showed an unremarkable liver, unremarkable gallbladder and biliary ducts, unremarkable spleen and unremarkable pancreas. Kidneys were unremarkable. There was a moderate sized hiatal hernia and diverticuli of the distal colon. There was mild wall thickening with surrounding stranding in the distal transverse colon. She was admitted to the hospital and started on Cipro and Flagyl. She was seen in consultation by Dr. Ramirez and colonoscopy was scheduled. Tachycardia resolved with hydration her blood pressure normalized. The colonoscopy showed mucosal erythema at the splenic flexure with no evidence of gangrene. Biopsies were taken. The mucosa was friable with slight nodularity and erythema. Biopsy was positive for ischemic colitis. She had no further blood clots per rectum but did have some bright red blood on the toilet paper the day following the colonoscopy prep. She was noted to have hemorrhoidal disease on the colonoscopy and also diverticulosis. She was started on MiraLAX for chronic constipation. On 12/12/2017 she was tolerating and advancing her diet and was afebrile. Abdominal pain was adequately managed with Vicodin. She was discharged home and instructed to stick to a low residue diet for at least 2 weeks before advancing to a high-fiber diet to allow the colon to heal. She was instructed to stay on MiraLAX 17 g p.o. daily. She was instructed if she did not have a bowel movement in 3 days to take a laxative. She will follow-up with Dr. Thacker in 7-[address] Noelle Ramirez in the office to review the biopsy report. She will continue to follow with Dr. Dr. Jauregui as previously scheduled for management of chronic pain syndrome. At the time of discharge the abdomen was soft, nondistended with normal bowel sounds. She was tender in the left upper quadrant but had no guarding with palpation. The lungs were clear to auscultation but diminished. She had edema of her hands and her ankles secondary to normal saline during her hospital stay. This note was generated with myhub dictation software. It may contain incorrect words, spelling, and punctuation that were not noted in checking the note before signing. Discharge Activity: May not drive while taking narcotic pain medications. May resume sexual activity in: No Restrictions Call your doctor if you observe: Fever of 101 or Higher, Inability to have a bowel movement, Uncontrolled pain, - - large amounts of blood from the rectum.......more than a cup Home Medications: Medications to take at Discharge Cholecalciferol (VIT D3) [Vitamin D3] 1,000 unit PO DAILY 10/08/15 Lisinopril [Zestril] 5 mg PO DAILY 10/08/15 Simvastatin [Zocor] 20 mg PO QHS 10/08/15 Tizanidine HCl 4 mg PO QHS 10/08/15 Trazodone HCl 200 mg PO QHS 08/23/16 Bisacodyl [Dulcolax] 5 mg PO DAILY PRN 10/15/17 Duloxetine Hcl [Cymbalta] 60 mg PO DAILY 10/15/17 Linagliptin [Tradjenta] 5 mg PO DAILY 10/15/17 Meloxicam [Mobic] 7.5 mg PO DAILY 10/15/17 albuterol sulfate HFA 90 mcg/actuation aerosol inhaler 2 puff INHALATION Q6H PRN #1 device 11/08/17 Ondansetron [Zofran Odt] 4 mg PO Q8H PRN PRN #10 tab 11/12/17 furosemide 20 mg tablet 20 mg PO BID tab 11/15/17 Calcium Carbonate [Tums] 200 mg PO PRN PRN 11/28/17 Gabapentin [Neurontin] 300 mg PO TID 11/28/17 Omeprazole Magnesium [Prilosec Otc] 20 mg PO DAILY 11/28/17 Umeclidinium Brm/Vilanterol Tr [Anoro Ellipta 62.5-25 Mcg INH] 1 inh INHALATION Q24H 11/28/17 Hydrocodone Bitart/Apap 5-325 [[place] 5/325] 1 tab PO Q4H PRN PRN 5 Days #20 tab 12/12/17 Polyethylene Glycol 3350 [Miralax] 17 gm PO DAILY 30 Days #510 powder 12/12/17 Following Prescrptions Were Given to Patient: Hydrocodone Bitart/Apap 5-325 [[place] 5/325] 1 tab PO Q4H PRN PRN 5 Days #20 tab PRN Reason: Abdominal pain Polyethylene Glycol 3350 [Miralax] 17 gm PO DAILY 30 Days #510 powder Primary Care Physician: Hua Mosher MD [Primary Care Provider] - Please follow up with your Primary Care Physician in: 7-10 days Please Follow Up With: Noelle Ramirez MD When: next week in the office to go over the biopsies Please Follow Up With: Adair Jauregui MD When: as previously scheduled Patient Instructions: Low-Residue Diet, Ischemic Colitis, Eating a High-Fiber Diet Disposition: Home Minutes spent on discharge:: 35 Patient Condition:: Good Medical Necessity - Tobacco Use Smoking Status: Former smoker Meaningful Use Info Meaningful Use Diagnoses (Choose all that apply): None applicable Code Visit Inpatient E&M: 88175 Disch Hosp
--- NOTE | 2017-12-17 15:16 | CASEMGMT ---
MICHAEL CM DC Phone call. Attempted call, no answer. Unique CRAWFORDN RN AC
== END 2017-12-12 19:05 | disposition home or self-care (01) | DRG 394 ==
LOC: ED 18:54 → PCU 19:40
PROVIDERS: Surgery; Emergency Provider Emergency Medicine; Family Provider Family Medicine; PCP Family Medicine; Visit Provider Internal Medicine
PROC: 0DJD8ZZ Inspection of Lower Intestinal Tract, Via Natural or Artificial Opening Endoscopic (ICD-10-PCS; CPT 45378; principal; 2017-12-11 14:55)
DX: K55.9 Vascular disorder of intestine, unspecified (principal); Z68.41 Body mass index [BMI] 40.0-44.9, adult; R65.10 Systemic inflammatory response syndrome (SIRS) of non-infectious origin without acute organ dysfunction; K57.30 Diverticulosis of large intestine without perforation or abscess without bleeding; K64.9 Unspecified hemorrhoids; E66.01 Morbid (severe) obesity due to excess calories; K21.9 Gastro-esophageal reflux disease without esophagitis; I12.9 Hypertensive chronic kidney disease with stage 1 through stage 4 chronic kidney disease, or unspecified chronic kidney disease; E11.22 Type 2 diabetes mellitus with diabetic chronic kidney disease; N18.3 Chronic kidney disease, stage 3 (moderate); Z72.0 Tobacco use; J44.9 Chronic obstructive pulmonary disease, unspecified; F41.9 Anxiety disorder, unspecified; E78.5 Hyperlipidemia, unspecified; M79.7 Fibromyalgia; Z79.899 Other long term (current) drug therapy; Z79.84 Long term (current) use of oral hypoglycemic drugs; K44.9 Diaphragmatic hernia without obstruction or gangrene
CPT/HCPCS: 36415; 74176; 80048; 80053; 81001; 82274; 82962; 83605; 83735; 85025; 85027; 85610; 85730; 86850; 86900; 87040; 88305; 94640; 94762; 99285; J7030; J7040; J7050; J7120; A4216; J0744

== ENCOUNTER → 2017-12-17 09:38 | Outpatient (CLI) | payer OTHER, SELFPAY ==
--- NOTE | 2017-12-17 09:43 | RAD_ITS ---
STUDY: X-RAY - RIGHT FOOT CLINICAL: Female, 57 years old. Pain. TECHNIQUE: 3 view(s) of the foot. COMPARISON: 08/30/2015 FINDINGS: There is no evidence of fracture or dislocation. There are no significant degenerative changes. There are no radiodense foreign bodies. RAD/Foot min 3 Views IMPRESSION: No fracture or dislocation. Electronically Signed: Joel Godfrey, at 20:09 EDT Tel , Service support ,
[2017-12-17 12:11] LABS: Hemoglobin 12.4 g/dl (12.0-15.0); Mean Corp Hgb Conc 31.8 g/gl (32-36); Mean Corpuscular Volume 100.8 fL (81-99); Mean Platelet Vol. 9.7 fl (6.2-12.0); Platelet Count 288 K/mm3 (150-450); RBC Distribution Width CV 13.6 % (11.6-14.6); RBC Distribution Width SD 49.8 fl (35.1-43.9); Red Blood Count 3.87 M/mm3 (4.2-5.4); White Blood Count 7.7 K/mm3 (4.4-11.0)
[2017-12-17 12:16] LABS: Scan Indicated on CBC? Y/N NO
[2017-12-17 12:20] LABS: BNP,B-Type NATRIURETIC PEPTIDE 99.6 pg/mL (0-100)
[2017-12-17 12:28] LABS: Anion Gap 7 (5-15); BUN 7 mg/dL (7-18); BUN/Creat Ratio 5.6 RATIO (10-20); Calcium,Total 9.3 mg/dL (8.5-10.1); Chloride 108 mmol/L (98-107); Creatinine, Serum 1.24 mg/dL (0.55-1.02); EST Glomerular Filtration Rate 47 mL/min (>60); Est Glom Filt Rate - Afr Amer 57 mL/min (>60); Glucose 87 mg/dL (74-106); Potassium 2.8 mmol/L (3.5-5.1); Sodium Level 147 mmol/L (136-145)
== END ==
PROVIDERS: Family Provider Family Medicine; PCP Family Medicine; Visit Provider Family Medicine
DX: M79.671 Pain in right foot (principal); I10 Essential (primary) hypertension
CPT/HCPCS: 73630; 80048; 83880; 85027

== ENCOUNTER 2018-01-24 13:00 | Outpatient (RCR) | payer OTHER, SELFPAY ==
--- NOTE | 2017-12-25 09:41 | HP.PTEVAL ---
Patient's Visit Information MARGARITA JOSHI is a 57 year old F referred to Physical Therapy by Mulugeta Wallace DO with a diagnosis of Tendonitis of the right foot. Date of Evaluation: 12/25/17 Physical Therapist: Liliana Hanson - Visit Plan Frequency: 2x /Week Duration: 4 Weeks Plan: Focus on ROM, strength, muscular endurnace in an aquatic setting for decreasing edema - Subjective Subjective: Patient reports swelling of the right foot from where she broke it [address] Wallace diagnosed wtih tendonitis. [place] and broke it. She went to [place] so she was not in a cast (10 days) but when she got home she went to see someone who sent her Dr. Wallace- put her in a boot. Foot is now bothering her on the top of hte foot and along the outside of the foot. Was in the hospital and she did not get her water pills. Their is still some pain in the arch but most of the pain has cleared up. Worst: 6/10 Agg: the more she is on it the more it swells. Best: 0/10 Eases: only when elevated. Describes the pain as dull and achy. No radiating pain unless its swollen. Sometimes N/T but its not new. Most of the time she does not wear shoes. X-rays were taken by Dr. Mosher and everything looked good- no fractures. Sleep: sometimes disturbes when it aches- jeannette in this weather. Is not active/sedentary livestyle. PMHx/Meds: no changes since hospital - Objective Posture: FH, RS, Increased kyphosis- pt is overweight. Gait: antalgic- decreased heel/toe pattern and walks flat footed with wide VESNA. SLS: unable but can weight shift but reports pain. HR/TR: able with poor clearance for both. Girth: Figure 8: 55cm Mall: 28.5 cm. ROM: DF: neutral, PF: 30 degrees, Ever: 15 degrees, Inv: 30 degrees. Strength: 5/5 throughout. Palpation: tender along lateral aspect of the foot and across the mortise. Flex: Gastroc: severe Soleus: moderate. Stairs: non recip- up with the left and down with the leg - Goals Goal 1:: Patient will be I with HEP and progression Goal Time Frame: 4-6 Weeks Goal 2:: Patient will demo 10 degrees of DF in the right foot Goal Time Frame: 4-6 Weeks Goal 3:: Patient will demo moderate restriction in gastroc Goal Time Frame: 4-6 Weeks Goal 4:: Patient will demo SLS for 5 sec before LOB Goal Time Frame: 4-6 Weeks - Rehabilitation Potential Physical Therapy Diagnosis: Patient presents with hypmobility- she has decreased flexibility, ROM with increase edema increasing pain and decreasing functional mobility Rehabilitation Potential: Fair - Anticipated Interventions Patient/Client Instruction: Educate patient on: Benefits of Fitness Program For the Purpose of:: To increase tolerance to activity/condition/position Therapeutic Exercise to Include: Strength training, Endurance training, Balance training, Agility training, Body mechanics, Postural training, Flexibilty training, Gait and locomotor training, In an aquatic setting, Passive ROM, Active ROM For the Purpose of:: To improve muscle performance and motor function Thank you for the opportunity to evaluate your patient. For Medicare and Medicare HMO plans, please review the plan of care and approve it. It will need to be FAXED BACK to us at [phone] for Medicare purposes. Please let me know if there are questions or concerns regarding this plan of care. Physician Signature: Date:
--- NOTE | 2018-01-24 13:22 | HP.PTDCSUM_ITS ---
HP - PT D/C Summary It has been my pleasure to treat MARGARITA JOSHI under orders from Mulugeta Wallace DO, for the diagnosis of Tendonitis of the right foot for a total of 6 visit(s) . Discharge Date: Please see the following information for a summary of their discharge status. - Subjective Subjective: Patient does not feel that its any better. It felt good when she was in the water but when she comes out its painful. Dr Wallace told her that sometime down the road she may have to have it broken and reset. Does not have an apt to come go back and see him. - Pain R foot Pain Intensity (Out of 10): 3 - Overall Improvement % Improvement: 50 - Objective Objective/Function: Posture: FH, RS, Increased kyphosis- pt is overweight. Gait : slightly antalgic- decreased heel/toe pattern and walks flat. SLS: unable but can weight shift but reports pain. HR/TR: able with poor clearance for both. ROM: DF: neutral, PF: 30 degrees, Ever: 15 degrees, Inv: 30 degrees. Strength: 5/5 throughout. Palpation: tender along lateral aspect of the foot and across the mortise. Flex: Gastroc: severe Soleus: moderate. Stairs: non recip- up with the left and down with the leg - Goals Goal 1:: Patient will be I with HEP and progression Goal Progress: Progressing Goal 2:: Patient will demo 10 degrees of DF in the right foot Goal Progress: Not Progressing Goal 3:: Patient will demo moderate restriction in gastroc Goal Progress: Not Progressing Goal 4:: Patient will demo SLS for 5 sec before LOB Goal Progress: Not Progressing - Plan Plan: Discharge- return to MD for further evaluation - D/C Information If there are questions or concerns regarding this patient's physical therapy, please feel free to call me at [phone]. Thank you for the referral of this patient. Sincerely, Liliana Hanson
== END 2018-01-24 14:38 | disposition home or self-care (01) ==
LOC: PT 13:00
PROVIDERS: Family Provider Family Medicine; PCP Family Medicine; Visit Provider Orthopaedic Surgery
DX: M65.80 Other synovitis and tenosynovitis, unspecified site (principal); R60.0 Localized edema
CPT/HCPCS: 97113; 97161; 97164

== ENCOUNTER → 2018-03-04 09:33 | Outpatient (CLI) | payer OTHER, SELFPAY ==
[2018-03-04 12:52] LABS: Erythrocyte Sedimentation Rate 33 mm/hr (0-30)
[2018-03-04 12:55] LABS: Hematocrit 41.7 % (37-47); Mean Corp Hgb Conc 31.2 g/gl (32-36); Mean Corpuscular Hgb 30.6 pg (27.0-32.0); Mean Corpuscular Volume 98.1 fL (81-99); Mean Platelet Vol. 9.4 fl (6.2-12.0); Platelet Count 355 K/mm3 (150-450); RBC Distribution Width CV 14.8 % (11.6-14.6); RBC Distribution Width SD 53.5 fl (35.1-43.9); Red Blood Count 4.25 M/mm3 (4.2-5.4)
[2018-03-04 12:57] LABS: Scan Indicated on CBC? Y/N YES- FLAGS NOTED
[2018-03-04 13:00] LABS: Vitamin B12 347 pg/mL (211-911); Vitamin D,25 Hydroxy 82.9 ng/mL (29.95-100.01)
[2018-03-04 13:10] LABS: ALB/GLOB Ratio 0.7 RATIO (0.9-2.4); AST(SGOT) 11 U/L (15-37); Alanine Aminotransfer ALT/SGPT 20 U/L (13-56); Albumin, Serum 3.2 g/dL (3.2-5.0); Alkaline Phosphatase 91 U/L (45-117); Anion Gap 9 (5-15); BUN 23 mg/dL (7-18); BUN/Creat Ratio 16.2 RATIO (10-20); Chloride 103 mmol/L (98-107); Cholesterol 151 mg/dL (200); Creatinine, Serum 1.42 mg/dL (0.55-1.02); EST Glomerular Filtration Rate 40 mL/min (>60); Est Glom Filt Rate - Afr Amer 49 mL/min (>60); Globulin 4.5 g/dL (2.2-4.2); Glucose 205 mg/dL (74-106); High Density Lipoprotein 56 mg/dL; Potassium 3.5 mmol/L (3.5-5.1); Protein, Total 7.7 g/dL (6.4-8.2); Sodium Level 145 mmol/L (136-145); Triglycerides 108 mg/dL
[2018-03-04 13:11] LABS: Thyroid Stim Hormone (TSH) 1.52 uIU/mL (0.358-3.74); Very Low Density Lipoprotein 22 mg/dL (5-40)
== END ==
PROVIDERS: Family Provider Family Medicine; PCP Family Medicine; Visit Provider Family Medicine
DX: K21.9 Gastro-esophageal reflux disease without esophagitis (principal); E11.9 Type 2 diabetes mellitus without complications; R41.82 Altered mental status, unspecified
CPT/HCPCS: 36415; 80053; 80061; 82306; 82607; 84443; 85027; 85652

== ENCOUNTER 2018-03-24 19:35 | Emergency (ER) | payer OTHER, SELFPAY ==
[2018-03-24 19:36] VITALS: BP 153/80; PULSE 104; RESP 17; TEMP 36.8; O2SAT 98; BMI 39.6
[2018-03-24 19:57] LABS: Absolute Lymphocyte Count 2.53 X10^3/ul (0.83-4.51); Absolute Neutrophil Count 6.2 X10^3/uL (2.0-7.7); Basophil# 0.03 X10^3/uL; Basophil% 0.3 % (0-1); Eosinophil# 0.17 X10^3/uL; Eosinophils% 1.7 % (0-5); Hematocrit 41.4 % (37-47); Lymphocyte # 2.53 X10^3/ul (4.0); Mean Corp Hgb Conc 31.4 g/gl (32-36); Mean Corpuscular Volume 98.8 fL (81-99); Mean Platelet Vol. 9.6 fl (6.2-12.0); Monocyte# 0.79 X10^3/uL; Monocyte% 8.1 % (0-10); Neutrophil # 6.19 X10^3/uL (2.7-7.7); Neutrophil % 63.6 % (47-70); Platelet Count 228 K/mm3 (150-450); RBC Distribution Width CV 15.8 % (11.6-14.6); RBC Distribution Width SD 56.3 fl (35.1-43.9); Red Blood Count 4.19 M/mm3 (4.2-5.4); White Blood Count 9.7 K/mm3 (4.4-11.0)
[2018-03-24 19:59] LABS: POSITIVE COUNT NO; POSITIVE DIFFERENTIAL NO; POSITIVE MORPHOLOGY NO
[2018-03-24 20:07] LABS: Anion Gap 4 (5-15); BUN 22 mg/dL (7-18); BUN/Creat Ratio 14.6 RATIO (10-20); Calcium,Total 8.9 mg/dL (8.5-10.1); Chloride 104 mmol/L (98-107); Creatinine, Serum 1.51 mg/dL (0.55-1.02); EST Glomerular Filtration Rate 38 mL/min (>60); Est Glom Filt Rate - Afr Amer 46 mL/min (>60); Estimated Creatinine Clearance 33.59 ml/min; Glucose 168 mg/dL (74-106); Potassium 3.8 mmol/L (3.5-5.1); Sodium Level 143 mmol/L (136-145)
[2018-03-24 20:16] LABS: Mucous, Urine 0 SEEN /hpf (<or=2+); Red Blood Cells-Urine 0 SEEN /hpf (0-5)
[2018-03-24 20:18] LABS: Color, Urine Yellow (Yellow); Glucose, Dipstick Normal (Normal); Ketone-Dipstick Negative (Negative); Leukocyte Esterase-Dipstick 500 /ul (Negative); Nitrite-Dipstick Negative (Negative); Occult Blood-Urine 25 /ul (Negative); Protein-Dipstick 15 mg/dl (Negative); Urine Bilirubin Dipstick Negative (Negative); Urine Clarity Clear (Clear); Urine Urobilinogen Normal (Normal); Urine pH 6.5 (5.0 - 8.0)
[2018-03-24 20:33] LABS: White Blood Cells >100 SEEN /hpf (0-5)
[2018-03-24 20:34] LABS: Bacteria 1+ /hpf (None Seen); Squamous Epithelial Cells - UA 0-5 SEEN /hpf (5-10)
[2018-03-24] MEDS: Ondansetron 4 MG/2 ML Vial IV (20:49)
[2018-03-24] MEDS: Morphine 4 MG/ML Syringe IV (20:49)
[2018-03-24] MEDS: 0.9% Normal Saline 1,000 ML 1000 ML IV (20:49)
[2018-03-24 22:02] VITALS: BP 142/82; PULSE 85; RESP 18; O2SAT 95
--- NOTE | 2018-03-24 22:41 | ED.VISSUMM ---
- ER Visit Summary Date of Service: 03/24/18 Chief Complaint: The right lower quadrant abdominal pain History of Present Illness: The patient is a 58 F presents to the emergency department because of persistent right lower quadrant abdominal pain that started approximately 1400. There is associated with nausea and decreased appetite. She states walking and car ride causes increased pain. She denies fever, chills or night sweats. She denies any ocular, visual or auditory symptoms. She denies earache, rhinorrhea, nasal congestion, postnasal drip or sore throat. She denies chest pain or palpitations. She denies shortness of breath, cough, dyspnea on exertion. She does report a dull pain with nausea without vomiting or diarrhea. She denies black or maroon colored stool. She denies dysuria, frequency, urgency or hematuria. She denies any back pain or myalgias or arthralgias. She denies rash. Physical Examination: Blood pressure is elevated 153/80. Heart rate is 104. She is not febrile. She does appear ill but not toxic. Head is atraumatic normocephalic. Pupils are equal round reactive. Extraocular muscles are intact. TMs are pearly white with landmarks noted. Nares patent with no drainage. Posterior pharynx without erythema or exudate. Uvula is midline. There is no dysphonia or dysphasia. Trachea is midline. There is no stridor with auscultation of the neck. Heart is regular without murmur, gallop or rub. S1 and S2 are normal. Lungs are clear to auscultation with good movement of air bilaterally. Abdomen is remarkable for tenderness in the proximity McBurney's point. There is also tenderness to deep palpation over the suprapubic region and right upper quadrant with a negative Gillis sign. This is the area of maximal tenderness and where she points to maximal tenderness. There is no umbilical or inguinal hernia. There is no inguinal lymphadenopathy. There is no evidence of trauma or skin lesions. There is no CVA tenderness noted. Test Results: White count is 9.7 with no shift. Electro panel is remarkable for a BUN and creatinine of 2201.51 respectively. Glucose is elevated 168. Urine is remarkable for pyuria and bacteria. Of note she does not complain of urinary symptoms. This may be secondary to appendicitis or he may have asymptomatic cystitis. Emergency Department Course and Treatment: IV was established. She was medicated with Zofran and morphine for discomfort. Appropriate blood work was obtained to determine the etiology of her right lower quadrant about pain. CT of the abdomen and pelvis with p.o. contrast was ordered. Treatment Plan: CT of the abdomen reveals evidence of diverticulosis. The appendix is not visualized. When she was diagnosed colitis or appendix is not visualized. On reexamination her pain has improved. She is still having discomfort. She received a dose of ciprofloxacin and Azo. She was discharged with prescriptions for ciprofloxacin and Pyridium. She also was prescribed pain medication. She was informed to return if no improvement in 24 hours. She was informed that the appendix was not visualized however there is no evidence of inflammation. Disposition: Discharged to home with appropriate home-going instructions Impression: 1. Right lower quadrant abdominal pain uncertain etiology 2. Cystitis This note was generated with [employer] dictation software. It may contain incorrect words, spelling, and punctuation that were not noted in review of the chart prior to signing ED Disposition - Plan for ED Patient: Chief Complaint: Abd Pain Instructions: ED Abdominal Pain Poss Appendx Nb, ED UTI Cystitis Female Prescriptions: Phenazopyridine HCl [Pyridium] 200 mg PO Q8 #10 tab Ciprofloxacin [Cipro] 500 mg PO BID #14 tab Referrals: Hua Mosher MD [Primary Care Provider] - 1 Day for another exam
[2018-03-24 23:54] VITALS: BP 142/71; PULSE 89; RESP 20; TEMP 36.9; O2SAT 95
[2018-03-25] MEDS: Ciprofloxacin 250 MG Tablet 500 MG PO
[2018-03-25] MEDS: Phenazopyridine 95 MG Tablet 190 MG PO (00:01)
== END 2018-03-25 00:02 | disposition home or self-care (01) ==
LOC: ED 20:38
PROVIDERS: Emergency Provider Emergency Medicine; Family Provider Family Medicine; PCP Family Medicine
DX: R10.31 Right lower quadrant pain (principal); N30.90 Cystitis, unspecified without hematuria; E66.9 Obesity, unspecified; J44.9 Chronic obstructive pulmonary disease, unspecified; K21.9 Gastro-esophageal reflux disease without esophagitis; E78.00 Pure hypercholesterolemia, unspecified; E11.22 Type 2 diabetes mellitus with diabetic chronic kidney disease; N18.6 End stage renal disease; Z87.19 Personal history of other diseases of the digestive system; Z79.84 Long term (current) use of oral hypoglycemic drugs; Z79.899 Other long term (current) drug therapy; Z72.0 Tobacco use
CPT/HCPCS: 74176; 80048; 81001; 85025; 87086; 87088; 87186; 96361; 96374; 96375; 99283; J7030; A4216; J2405

== ENCOUNTER → 2018-04-01 10:24 | Outpatient (CLI) | payer OTHER, SELFPAY | PROVIDERS: Family Provider Family Medicine; PCP Family Medicine; Visit Provider Family Medicine | DX: R10.11 Right upper quadrant pain (principal) | CPT/HCPCS: 76705 ==

== ENCOUNTER → 2018-04-05 11:27 | Outpatient (CLI) | payer OTHER, SELFPAY ==
[2018-04-09 08:14] LABS: H. PYLORI STOOL AG Negative (Negative)
== END ==
PROVIDERS: Family Provider Family Medicine; PCP Family Medicine
DX: K21.9 Gastro-esophageal reflux disease without esophagitis (principal)

== ENCOUNTER → 2018-04-11 08:11 | Outpatient (CLI) | payer OTHER, SELFPAY ==
[2018-04-11 10:37] LABS: Partial Thromboplast Time 25.8 Seconds (24.1-36.2); Prothrombin Time (Protime)PT. 12.8 SECONDS (11.7-14.9)
[2018-04-11 10:50] LABS: Hemoglobin A1c 7.1 % (4.2-6.3)
[2018-04-11 11:01] LABS: ALB/GLOB Ratio 0.9 RATIO (0.9-2.4); AST(SGOT) 14 U/L (15-37); Alanine Aminotransfer ALT/SGPT 20 U/L (13-56); Albumin, Serum 3.4 g/dL (3.2-5.0); Alkaline Phosphatase 81 U/L (45-117); Anion Gap 12 (5-15); BUN 18 mg/dL (7-18); BUN/Creat Ratio 12.8 RATIO (10-20); Calcium,Total 8.7 mg/dL (8.5-10.1); Chloride 107 mmol/L (98-107); Cholesterol 138 mg/dL (200); Creatinine, Serum 1.41 mg/dL (0.55-1.02); EST Glomerular Filtration Rate 41 mL/min (>60); Est Glom Filt Rate - Afr Amer 49 mL/min (>60); Ferritin 68 ng/mL (8-252); Globulin 3.9 g/dL (2.2-4.2); Glucose 199 mg/dL (74-106); High Density Lipoprotein 50 mg/dL; Iron 75 ug/dL (50-170); Potassium 3.7 mmol/L (3.5-5.1); Protein, Total 7.3 g/dL (6.4-8.2); Sodium Level 145 mmol/L (136-145); T4 Free Direct 1.24 ng/dL (0.76-1.46); Thyroid Stim Hormone (TSH) 0.63 uIU/mL (0.358-3.74); Triglycerides 91 mg/dL; Very Low Density Lipoprotein 18 mg/dL (5-40)
[2018-04-12 12:02] LABS: Vitamin B12 356 pg/mL (211-911); Vitamin D,25 Hydroxy 72.9 ng/mL (29.95-100.01)
[2018-04-14 08:37] LABS: Vitamin B1, Thiamine 101.8 nmol/L (66.5-200.0)
== END ==
PROVIDERS: Family Provider Family Medicine; PCP Family Medicine
DX: E78.5 Hyperlipidemia, unspecified (principal); R73.9 Hyperglycemia, unspecified; E61.1 Iron deficiency; E07.9 Disorder of thyroid, unspecified; E53.8 Deficiency of other specified B group vitamins; E55.9 Vitamin D deficiency, unspecified; R79.1 Abnormal coagulation profile; E51.9 Thiamine deficiency, unspecified
CPT/HCPCS: 36415; 80053; 80061; 82306; 82607; 82728; 83036; 83540; 84425; 84439; 84443; 85610; 85730

== ENCOUNTER 2018-04-17 09:51 | Day surgery (SDC) | payer OTHER, SELFPAY ==
[2018-04-17] VITALS (10 sets, daily range): BP systolic 108–146; BP diastolic 63–78; PULSE 52–83; RESP 16–18; TEMP 36.3–36.7; O2SAT 92–100; BMI 39.6
--- NOTE | 2018-04-17 | GALL_PTH ---
PATIENT: MARGARITA JOSHI LOC: [facility] [place] U#:[id number] AGE/SX: 58/F ROOM: RE04/17/[address]: Dr. Husam Barney MD : 1960 BED: DIS: 04/17/2018 SPEC #: [id number] RECD: 04/18/18 09:57 STATUS: NATALIE DAMARI #: [id number] TAYLER: 04/17/18 00:[address]: Husam Barney DEPT: SURGICAL PATHOLOGY RECD BY: Rodolfo Cutler ENTERED: 04/18/18 09:57 SP TYPE: CAROL SKELTON DR: Dr. Kolton Mosher MD Tissues: Gallbladder, NOS Procedures: Surgery Specimen Level III HEADER OPERATION: Laparoscopic cholecystectomy PRE-OP DIAGNOSIS: Gallbladder sludge, right upper quadrant abdominal pain TISSUE SUBMITTED: Gallbladder MICROSCOPIC DIAGNOSIS Gallbladder: Mild chronic cholecystitis. No stones are identified in the container or in the gallbladder. SJ:essie 04/19/18 MICROSCOPIC DESCRIPTION Slides are reviewed. GROSS DESCRIPTION Received is one container labeled with the patient's name and designated gallbladder. The specimen consists of a gallbladder measuring 11 cm in length and up to 3.5 cm in diameter. The external surface is pink-sapp, smooth and glistening for the most part. Focally it is granular, hemorrhagic and contains cautery artifact. The gallbladder contains yellow mucoid bile. No stones are identified in the container or in the gallbladder. The mucosa is bile-stained and without any mass lesions. The gallbladder wall measures 0.1 cm in thickness. Doctor Of Nursing Practice sections from the gallbladder and the cystic duct are submitted in one cassette. / SJ:essie 04/18/18 TC:3 [facility]: [id number]
[2018-04-17 11:15] LABS: Bedside Glucose 158 mg/dL (70-110)
[2018-04-17] MEDS: Cefazolin 2 GM in 0.9% Normal Saline 100 ML IV (12:07)
--- NOTE | 2018-04-17 12:25 | PCM.OPRPT ---
Problem List (1) Gallbladder sludge Status: Acute (2) Right upper quadrant abdominal pain Status: Acute Report of Operation Date of Procedure: 04/17/18 Pre-Operative Diagnosis: Gallbladder sludge. Right upper quadrant abdominal pain Post-Operative Diagnosis: Same Surgery/Procedure Performed:: Laparoscopic cholecystectomy Type of Anesthesia:: General Anesthesiologist: Dony Costa Specimen's removed: gb Estimated Blood Loss (mL): < 25 cc Description of Procedure: Patient was brought into the operating room. Placed in the supine position. Under excellent general endotracheal intubation the abdomen was sterilely prepped and draped in the usual fashion. Local was injected infraumbilically. A curvilinear incision was made. Dissection was carried down to the fascia. The fascia was grasped with a Meme. Varies needle was placed inside the abdomen. The abdomen was insufflated to 15 torr. A 10/12 trocar was placed without difficulty. Patient was placed in the head up and rotated to the left position. A subxiphoid #5 trocar was placed, inferior to this another #5 trocar was placed, laterally a #5 trocar was placed. All of these under direct visualization without injury to underlying structures. Fundus of the gallbladder was retracted in a cephalad direction. Moderate amount of adhesions were located on the gallbladder I took these down with electrocautery. Infundibulum was grasped and dissected laterally. I dissected out the cystic duct cystic artery and the liver bed place hemoclips proximal and distally on the duct ligated the duct. I placed hemoclips proximally distally on the artery ligated the artery. I deliver the gallbladder from the gallbladder bed with use of electrocautery. Placed a specimen a specimen bag and delivered through the umbilical port without difficulty. I had no spillage of bile. Use electrocautery for good hemostasis. I placed Teresita on the liver bed. I had good hemostasis and no bleeding was identified. I removed the trochars under direct visualization. Good hemostasis was noted. The fascia was closed with a [id number] stitch of 0 Vicryl. Skin incisions were closed with subcuticular stitches of 4-0 Monocryl. Steri-Strips are applied sterile dressings were applied and the patient tolerated the procedure well. - Admit VTE Documentation VTE Present on Admission: No VTE Mechan Device Prophylaxis: SCD's VTE Pharm Prophylaxis ordered?: No Reason prophylaxis not ordered:: Treatment Not Indicated
--- NOTE | 2018-04-17 12:26 | DCINST_ITS ---
Discharge Diet: Light diet - advance as tolerated Discharge Activity: May Not Drive - for 2-3 days or while taking narcotic pain medications., - - Do not drive, work heavy equipment or sign legal documents for 24 hours. May shower in (days): 1 - with the bandage in place. Additional Activity Instructions:: Pain medication may cause nausea. You should typically eat light foods as you take your pain medications. Pain medication may also cause constipation. If this is a problem for you, please discuss with your doctor. Call your doctor if your incision/area has: Continuous Slow Oozing, Sudden Increased Bleeding, Increased Pain/ Swelling, Increased Redness, Foul Smelling Discharge Call your doctor if you observe: Fever of 101 or Higher Suture Line Care: Avoid Pulling/Pushing, Avoid Pinching/Bending Additional Dressing/Incision Instructions:: Leave operative bandaids on for 2 days. When you remove dressing, leave Steri-Strips on until your follow-up appointment, or until the Steri-Strips fall off on their own. Allergies/Adverse Reactions: Allergies No Known Allergies Allergy (Verified 04/11/18 13:51) Medications to take at Discharge Cholecalciferol (VIT D3) [Vitamin D3] 1,000 unit PO DAILY 10/08/15 Lisinopril [Zestril] 5 mg PO DAILY 10/08/15 Simvastatin [Zocor] 20 mg PO QHS 10/08/15 Tizanidine HCl 4 mg PO QHS 10/08/15 Trazodone HCl 200 mg PO QHS 08/23/16 Bisacodyl [Dulcolax] 5 mg PO DAILY PRN 10/15/17 Duloxetine Hcl [Cymbalta] 60 mg PO DAILY 10/15/17 Linagliptin [Tradjenta] 5 mg PO DAILY 10/15/17 albuterol sulfate HFA 90 mcg/actuation aerosol inhaler 2 puff INHALATION Q6H PRN #1 device 11/08/17 Ondansetron [Zofran Odt] 4 mg PO Q8H PRN PRN #10 tab 11/12/17 furosemide 20 mg tablet 20 mg PO BID tab 11/15/17 Calcium Carbonate [Tums] 200 mg PO PRN PRN 11/28/17 Gabapentin [Neurontin] 300 mg PO TID 11/28/17 Omeprazole Magnesium [Prilosec Otc] 20 mg PO DAILY 11/28/17 Umeclidinium Brm/Vilanterol Tr [Anoro Ellipta 62.5-25 Mcg INH] 1 inh INHALATION Q24H 11/28/17 hydrocodone 5 mg-acetaminophen 325 mg tablet 1 tab PO TID tab 04/11/18 Oxycodone HCl/Acetaminophen [Percocet 5/325] 1 - 2 tab PO Q4H PRN PRN 5 Days # 30 tab 04/17/18 The following prescriptions were given: Oxycodone HCl/Acetaminophen [Percocet 5/325] 1 - 2 tab PO Q4H PRN PRN 5 Days # 30 tab PRN Reason: Pain Primary Care Physician: Hua Mosher MD [Primary Care Provider] - Test Results: Test results from this visit will be discussed in further detail at your follow- up appointment, if applicable. Please Follow Up With: Husam Barney MD - Please call [phone] to schedule an appointment. When: 7 days after your surgery.
[2018-04-17] MEDS: Bupivacaine Mpf 0.5% 30 ML VIAL (12:53)
[2018-04-17 13:41] LABS: Bedside Glucose 143 mg/dL (70-110)
[2018-04-17] MEDS: Acetaminophen 325 MG Tablet PO (16:24)
[2018-04-17] MEDS: oxyCODONE 5 MG Tablet PO (16:25)
== END 2018-04-17 17:17 | disposition home or self-care (01) ==
LOC: SDC 09:52 → AC 09:53
PROVIDERS: Family Provider Family Medicine; PCP Family Medicine; Visit Provider Surgery
PROC: (CPT 47610; principal; 2018-04-17 11:40)
DX: K81.1 Chronic cholecystitis (principal); K44.9 Diaphragmatic hernia without obstruction or gangrene; K21.9 Gastro-esophageal reflux disease without esophagitis; N18.3 Chronic kidney disease, stage 3 (moderate); E11.22 Type 2 diabetes mellitus with diabetic chronic kidney disease; F41.9 Anxiety disorder, unspecified; F32.9 Major depressive disorder, single episode, unspecified; Z79.899 Other long term (current) drug therapy; I12.9 Hypertensive chronic kidney disease with stage 1 through stage 4 chronic kidney disease, or unspecified chronic kidney disease; J44.9 Chronic obstructive pulmonary disease, unspecified; E78.5 Hyperlipidemia, unspecified; M79.7 Fibromyalgia; G89.29 Other chronic pain
CPT/HCPCS: 47562; 82962; 88304; J7120; J2405

== ENCOUNTER 2018-04-20 14:58 | Observation (INO) | payer OTHER, SELFPAY ==
[2018-04-20] VITALS (7 sets, daily range): BP systolic 121–126; BP diastolic 79–90; PULSE 88–115; RESP 14–16; TEMP 36.6–36.9; O2SAT 92–97; BMI 38.9; BMI 40.8
--- NOTE | 2018-04-20 15:17 | CT_ITS ---
STUDY: CT ABDOMEN AND PELVIS WITHOUT CONTRAST REASON FOR EXAM: Female, 58 years old. Status post cholecystectomy 3 days ago abdominal pain, no bowel movement RADIATION DOSAGE (If Supplied By Facility): CTDIvol = ( 17.07 ) mGy, DLP = ( 1243.28 ) mGycm TECHNIQUE: Transaxial images were obtained from the dome of the diaphragm to the symphysis pubis without oral contrast, and without intravenous contrast. Sagittal and coronal images were reconstructed. Individualized dose optimization techniques were used for this CT. COMPARISON: Prior study of 03/24/2018 FINDINGS: There are mild emphysematous changes of the right lower lobe. There is discoid atelectasis of the lung bases. There are several small faint patchy infiltrates of the left lingula and left lower lobe. The visualized portions of the heart are within normal limits. Normal liver. Status post cholecystectomy changes are noted. There is a fluid collection containing multiple tiny gas densities in the gallbladder fossa measuring 5.0 x 2.9 cm consistent with abscess. Normal spleen. There is diffuse atrophy of the pancreas. There are several tiny free intra-abdominal air densities. Normal bilateral adrenal glands. Normal right kidney. Normal left kidney. There is a small hiatal hernia. Normal small intestine. There is a moderate amount of nonformed stool in the colon. There is non-visualization of the appendix. There are calcified plaques of the abdominal aorta. Normal inferior vena cava. Normal retroperitoneum. Normal urinary bladder. The uterus and adnexal structures are unremarkable. There is a small umbilical hernia containing fat. There are diffuse degenerative changes of the visualized thoracolumbar spine. CT/Abdomen/Pelvis W IV Cont ONLY IMPRESSION: 1. Bibasilar discoid atelectasis. Several small patchy infiltrates of the left lingula and left lower lobe also noted, which may also be atelectatic in nature. 2. Status post cholecystectomy. There is a fluid collection containing multiple tiny gas densities in the gallbladder fossa measuring 5.0 x 2.9 cm consistent with abscess. 3. Diffuse pancreatic atrophy. 4. Several tiny free intra-abdominal air densities are noted compatible with the history of recent surgery. 5. There is a moderate amount of nonformed stool in the colon. 6. Small fat-containing umbilical hernia. 7. There is no evidence of free intra-abdominal or intrapelvic fluid. Electronically Signed: Donal Kirby MD at 16:18 EDT , Service support ,
--- NOTE | 2018-04-20 15:19 | ED.DCSUM_ITS ---
- ER Visit Summary Date of Service: 04/20/18 Chief Complaint: Constipation History of Present Illness: The patient is a 58 F presenting with constipation. Patient had gallbladder surgery on Sunday per Dr. Barney. She states she has not had a bowel movement since before the surgery. She denies fever. She has had nausea and vomiting. She has tried Ex-Lax and mag citrate at home. She chronically takes [place] for back pain. She was switched to Percocet after the surgery. Physical Examination: Vitals are stable. Patient is afebrile. Alert no acute distress. HEENT exam is unremarkable. Neck is supple. Lungs are clear and equal bilaterally. Heart is regular rate and rhythm. Abdomen is soft mild diffuse tenderness Extremities are unremarkable. Skin is warm and dry. No focal neurologic deficit. Remainder of exam is unremarkable. Emergency Department Course and Treatment: Patient given IV fluids, Zofran. CBC shows a normal white count. Chemistries normal except for glucose 156, creatinine 1.21. CT abdomen pelvis with IV only contrast shows bibasilar discoid atelectasis. Status post cholecystectomy. There is a fluid collection containing multiple tiny gas densities in the gallbladder fossa measuring 5.0 x 2.9 cm consistent with abscess. Diffuse pancreatic atrophy. Several tiny free intra- abdominal air densities are noted compatible with the history of recent surgery. There is a moderate amount of nonformed stool in the colon. Small fat -containing umbilical hernia. There is no evidence of free intra-abdominal or intrapelvic fluid. Findings were discussed with Dr. Barney. She was given a soapsuds enema and had a bowel movement. Discussed with Dr. Barney who evaluated her in the emergency department. She told Dr. Barney that she has been having chest pain since last night intermittently. She did not initially tell us this. EKG was obtained and shows sinus rhythm rate of 97 with no acute ischemic changes. Chest x-ray shows no acute process. Troponin is negative. Will discuss with the hospitalist for admission. Disposition: Admission Impression: Chest pain, abdominal pain, constipation This note was generated with [employer] dictation software. It may contain incorrect words, spelling, and punctuation that were not noted in review of the chart prior to signing ED Disposition - Plan for ED Patient: Chief Complaint: Constipation Referrals: Hua Mosher MD [Primary Care Provider] -
[2018-04-20] MEDS: Ondansetron 4 MG/2 ML Vial IV (15:36)
[2018-04-20 15:39] LABS: Absolute Lymphocyte Count 0.99 X10^3/ul (0.83-4.51); Absolute Neutrophil Count 7.3 X10^3/uL (2.0-7.7); Basophil# 0.01 X10^3/uL; Basophil% 0.1 % (0-1); Eosinophil# 0.05 X10^3/uL; Eosinophils% 0.5 % (0-5); Hematocrit 37.7 % (37-47); Hemoglobin 12.1 g/dl (12.0-15.0); Lymphocyte # 0.99 X10^3/ul (4.0); Lymphocyte % 10.6 % (19-41); Mean Corp Hgb Conc 32.1 g/gl (32-36); Mean Corpuscular Hgb 31.4 pg (27.0-32.0); Mean Corpuscular Volume 97.9 fL (81-99); Mean Platelet Vol. 9.6 fl (6.2-12.0); Monocyte# 0.98 X10^3/uL; Monocyte% 10.5 % (0-10); Neutrophil # 7.29 X10^3/uL (2.7-7.7); Neutrophil % 78.1 % (47-70); Platelet Count 203 K/mm3 (150-450); RBC Distribution Width CV 15.3 % (11.6-14.6); RBC Distribution Width SD 54.1 fl (35.1-43.9); Red Blood Count 3.85 M/mm3 (4.2-5.4); White Blood Count 9.3 K/mm3 (4.4-11.0)
[2018-04-20 15:41] LABS: Differential Indicated SCAN CRITERIA MET; POSITIVE COUNT NO; POSITIVE DIFFERENTIAL NO; POSITIVE MORPHOLOGY YES
[2018-04-20 16:23] LABS: Differential Comment SCANNED
[2018-04-20 16:48] LABS: ALB/GLOB Ratio 0.8 RATIO (0.9-2.4); AST(SGOT) 28 U/L (15-37); Alanine Aminotransfer ALT/SGPT 22 U/L (13-56); Albumin, Serum 2.9 g/dL (3.2-5.0); Alkaline Phosphatase 73 U/L (45-117); BUN 18 mg/dL (7-18); BUN/Creat Ratio 14.9 RATIO (10-20); Calcium,Total 8.4 mg/dL (8.5-10.1); Chloride 99 mmol/L (98-107); Creatinine, Serum 1.21 mg/dL (0.55-1.02); EST Glomerular Filtration Rate 49 mL/min (>60); Est Glom Filt Rate - Afr Amer 59 mL/min (>60); Estimated Creatinine Clearance 41.92 ml/min; Globulin 3.6 g/dL (2.2-4.2); Glucose 156 mg/dL (74-106); Potassium 3.6 mmol/L (3.5-5.1); Protein, Total 6.5 g/dL (6.4-8.2); Sodium Level 139 mmol/L (136-145)
[2018-04-20 16:49] LABS: Anion Gap 8 (5-15)
--- NOTE | 2018-04-20 17:55 | ED.RN ---
DESPITE NO BEING ABLE TO RETAIN FLUIDS FROM SOAP SUDS ENEMA, PT WAS ABLE TO PRODUCE MODERATE BOWEL MOVEMENT.
--- NOTE | 2018-04-20 18:12 | EKG12_ITS ---
Test Reason : CONSTIPATION Blood Pressure : / mmHG Vent. Rate : 097 BPM Atrial Rate : 097 BPM P-R Int : 160 ms QRS Dur : 098 ms QT Int : 368 ms P-R-T Axes : 063 031 040 degrees QTc Int : 467 ms Normal sinus rhythm Normal ECG Confirmed by ILSA BE, BRIAN ([id number]), telegraph editor REINIER PENDLETON ([id number] on 04/22/2018 3:31:28 PM Referred By: NATHALIA Confirmed By:BRIAN ROSENBAUM MD
--- NOTE | 2018-04-20 18:13 | RAD_ITS ---
STUDY: X-RAY CHEST REASON FOR EXAM: Female, 58 years old. Status post gallbladder surgery, no BM since surgery TECHNIQUE: Single AP portable view of the chest. COMPARISON: Previous study of November 05, 2017 FINDINGS: A fusion plate is seen in the lower cervical region. The lungs are clear and expanded. There is no demonstrated pleural abnormality. Normal size heart. Normal mediastinum and praveen. Normal visualized pulmonary arteries. There are calcified plaques of the aortic arch. Normal visualized thoracic spine. Normal visualized ribs, clavicles, and shoulders. There is no demonstrated abnormality of the visualized soft tissue structures of the upper abdomen. RAD/Chest 1 View (Portable) IMPRESSION: Calcified plaques of the aortic arch. No acute cardiopulmonary disease process is seen. Electronically Signed: Donal Kirby MD at 19:04 EDT , Service support ,
--- NOTE | 2018-04-20 18:14 | PCM.HP.STD ---
Problem List (1) Abdominal pain Status: Acute Qualifiers: Abdominal location: generalized Qualified Code(s): R10.84 - Generalized abdominal pain (2) Constipation Status: Chronic Qualifiers: Constipation type: unspecified constipation type Qualified Code(s): K59.00 - Constipation, unspecified History of Present Illness Date of Admission: 04/20/18 The patient is a 58 year old F underwent a laparoscopic cholecystectomy on 04/17/2018. This was done as an outpatient. She was doing well at home until yesterday when she started to have problems with constipation she took magnesium citrate and started to develop some diffuse abdominal pain as well as chest pain. She presented herself to the emergency department where CAT scan was obtained which showed some air bubbles in the right upper quadrant presumably from a questionable abscess. And considerable amount of stool throughout the colon.. There was no fluid around the liver itself no other acute processes going on. She is not complaining of any nausea or vomiting. Past Medical History Past Medical History (Chronic Problems): Chronic Problems (Last Reviewed 04/12/18 @ 10:13 by Husam Barney MD) Constipation (Chronic) Diverticulosis (Chronic) Morbid obesity with BMI of 40.0-44.9, adult (Chronic) Gastro-esophageal reflux disease without esophagitis (Chronic) Epigastric pain (Chronic) History of repair of hiatal hernia (Chronic) Cervical vertebral fusion (Chronic) Cervical radiculitis (Chronic) Fibromyalgia (Chronic) COPD (chronic obstructive pulmonary disease) (Chronic) Anxiety (Chronic) Hyperlipidemia (Chronic) Tobacco use (Chronic) on chantix Hypertension (Chronic) Diabetes mellitus, type II (Chronic) Chronic back pain (Chronic) CKD (chronic kidney disease) stage 3, GFR 30-59 ml/min (Chronic) Medical History: Medical History (Last Reviewed 04/20/18 @ 18:17 by Husam Barney MD) Cervical radiculitis (Chronic) M54.12 Fibromyalgia (Chronic) M79.7 Chest pain (Acute) R07.9 COPD (chronic obstructive pulmonary disease) (Chronic) J44.9 Anxiety (Chronic) F41.9 Hyperlipidemia (Chronic) E78.5 Tobacco use (Chronic) Z72.0 on chantix Hypertension (Chronic) I10 Diabetes mellitus, type II (Chronic) E11.9 Chronic back pain (Chronic) M54.9, G89.29 CKD (chronic kidney disease) stage 3, GFR 30-59 ml/min (Chronic) N18.3 Allergies No Known Allergies Allergy (Verified 04/20/18 15:00) Home Medications: Ambulatory Orders Medication Instructions Recorded Cholecalciferol (VIT D3) [Vitamin 1,000 unit PO DAILY 10/08/15 D3] Lisinopril [Zestril] 5 mg PO DAILY 10/08/15 Simvastatin [Zocor] 20 mg PO QHS 10/08/15 Tizanidine HCl 4 mg PO QHS 10/08/15 Trazodone HCl 200 mg PO QHS 08/23/16 Bisacodyl [Dulcolax] 5 mg PO DAILY PRN 10/15/17 Duloxetine Hcl [Cymbalta] 60 mg PO DAILY 10/15/17 Linagliptin [Tradjenta] 5 mg PO DAILY 10/15/17 albuterol sulfate HFA 90 2 puff INHALATION Q6H PRN #1 device 11/08/17 mcg/actuation aerosol inhaler Ondansetron [Zofran Odt] 4 mg PO Q8H PRN PRN #10 tab 11/12/17 furosemide 20 mg tablet 20 mg PO BID tab 11/15/17 Calcium Carbonate [Tums] 200 mg PO PRN PRN 11/28/17 Gabapentin [Neurontin] 300 mg PO TID 11/28/17 Omeprazole Magnesium [Prilosec Otc] 20 mg PO DAILY 11/28/17 Umeclidinium Brm/Vilanterol Tr 1 inh INHALATION Q24H 11/28/17 [Anoro Ellipta 62.5-25 Mcg INH] hydrocodone 5 mg-acetaminophen 325 1 tab PO TID tab 04/11/18 mg tablet Oxycodone HCl/Acetaminophen 1 - 2 tab PO Q4H PRN PRN 5 Days 04/17/18 [Percocet 5/325] #30 tab Surgical History: Surgical History (Last Reviewed 04/20/18 @ 18:17 by Husam Barney MD) History of repair of hiatal hernia (Chronic) Z98.890, Z87.19 Cervical vertebral fusion (Chronic) M43.22 History of colonoscopy Onset Date: ~12/05/17 Z98.890 History of tubal ligation Z98.51 history EGD with ph probe Onset Date: ~12/09/17 Surgical History: cholecystectomy - 04/17/2018, - - Cervical spine surgery, BLTL, L shoulder surgery, R heel spur removal, hiatal hernia repair with mesh Psychiatric History: Anxiety, Depression 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 Smoking Status: Former smoker - *Family History Maternal Family History: Family History (Last Reviewed 04/12/18 @ 10:13 by Husam Barney MD) Mother Hypertension History Items: Diabetes, Hypertension Paternal Family History: Family History (Last Reviewed 04/12/18 @ 10:13 by Husam Barney MD) Mother Hypertension History Items: Cancer - Father w/ lung CA, metastatic, 70s., Diabetes, Heart Disease - [place] age 70's, Hypertension Review of Systems Constitutional: Reports: Weakness, Fatigue Eyes: Denies: Blurred vision, Pain, Redness, Vision Change HEENT: Denies: Dysphasia, Ear Pain, Eye Pain, Head Aches, Hearing Changes, Sore Throat Cardiovascular: Reports: Chest Pain - Midsternal with no radiation Respiratory: Denies: Cough, Hemoptysis, Shortness of breath at rest, Shortness of breath upon exertion, Wheezing Gastrointestinal: Reports: Abdominal Pain - Diffuse abdominal pain, Constipation - Patient did receive an enema in the emergency department with some slight results but still has the diffuse abdominal pain Genitourinary: Denies: Dysuria, Frequency, Hematuria, Urgency Skin: Reports: Wounds - Slight redness in the inferior umbilical incision VTE Information - Inpt Only VTE Present on Admission: No VTE Mechan Device Prophylaxis: SCD's VTE Pharm Prophylaxis ordered?: No Reason prophylaxis not ordered:: Treatment Not Indicated Patient Problems: Active and Suspected Problems (Last Reviewed 04/12/18 @ 10:13 by Husam Barney MD) Abdominal pain (Acute) - Physical Exam General: Alert, Oriented x3 Lungs: Clear to auscultation Cardiovascular: Regular rate, Regular Rhythm, No murmurs Abdomen: Obese, Tender - She has some diffuse tenderness no rebound guarding or peritoneal signs are identified. The incisions look good her lateral one has some bruising to it and there is some minimal redness in the umbilical incision but I think it is appropriate for this point in her surgery and it does not appear to be cellulitic or an abscess that may be growing Extremities: No clubbing, No cyanosis, No edema Vital Signs Temp Pulse Resp BP Pulse Ox 98.3 F 115 H 14 126/81 H 97 04/20/18 14:58 04/20/18 14:58 04/20/18 14:58 04/20/18 14:58 04/20/18 14:58 Oxygen Delivery Method Room Air Weight: 220 lb Body Mass Index (BMI) 38.9 Finger Stick Blood Glucose 143 Laboratory Tests Past 24 Hrs 04/20/18 04/20/18 04/20/18 15:20 15:20 16:05 WBC 9.3 RBC 3.85 L Hgb 12.1 Hct 37.7 MCV 97.9 MCH 31.4 MCHC 32.1 RDW 15.3 H RDW Differential 54.1 H Plt Count 203 MPV 9.6 Immature Gran % (Auto) 0.200 Neut % (Auto) 78.1 H Lymph % (Auto) 10.6 L Storey % (Auto) 10.5 H Eos % (Auto) 0.5 Baso % (Auto) 0.1 Absolute Neuts (auto) 7.3 Absolute Lymphs (auto) 0.99 Total Counted Not Reportable Differential Comment SCANNED Sodium Cancelled 139 Potassium Cancelled 3.6 Chloride Cancelled 99 Carbon Dioxide Cancelled 32.0 Anion Gap Cancelled 8 BUN Cancelled 18 Creatinine Cancelled 1.21 H Estim Creat Clear Calc Cancelled 41.92 Est GFR (MDRD) Af Amer Cancelled 59 L Est GFR (MDRD) Non-Af Cancelled 49 L BUN/Creatinine Ratio Cancelled 14.9 Glucose Cancelled 156 H Calcium Cancelled 8.4 L Total Bilirubin Cancelled 0.50 AST Cancelled 28 ALT Cancelled 22 Alkaline Phosphatase Cancelled 73 Total Protein Cancelled 6.5 Albumin Cancelled 2.9 L Globulin Cancelled 3.6 Albumin/Globulin Ratio Cancelled 0.8 L Assessment/Plan All Active Problems (Last Reviewed 04/12/18 @ 10:13 by Husam Barney MD) Gallbladder sludge (Acute) Right upper quadrant abdominal pain (Acute) Abdominal pain (Acute) Stage 2 moderate COPD by GOLD classification (Acute) Lower GI bleed (Acute) Ischemic colitis (Acute) SIRS (systemic inflammatory response syndrome) (Acute) Chest pain (Acute) Pancreatitis (Resolved) Going to admit the patient for IV hydration and some IV pain medication and allow her to have clear liquids. We will consult the hospitalist to make sure that the patient is not having an [place] at this time. I sprayed Teresita in the gallbladder fossa and I do not believe that this is an abscess brewing I think that this is secondary to the Teresita that I sprayed in there. She is not having any focal tenderness in that area whatsoever.
--- NOTE | 2018-04-20 19:21 | PCM.PN.HOSP ---
Patient Problems: Active and Suspected Problems (Last Reviewed 04/20/18 @ 18:17 by Husam Barney MD) Abdominal pain (Acute) Subjective: Patient with a significant history of diabetes mellitus, hypertension, hyperlipidemia, CKD, who recently (04/17/2018) had cholecystectomy and has not been able to have a bowel movement although she tried home Laxative presents to the emergency department with diffuse abdominal pain. At emergency department she was given soapsuds enema which was productive for stool; and she noted an improvement in her abdominal pain. A CT scan of her abdomen and pelvis showed a questionable abscess that general surgery thinks it may not be a real abscess. General surgery are primary. Hospitalist service was consulted because while at the emergency department patient complained of chest pain. Her chest pain is located across her entire chest. She describes her pain as 3-4 in severity. Her pain is achy. Her pain started a day before her admission and she took some Tylenol which did not actually give her any relief. Lying down improves the pain. There are no aggravating factors to her pain. Her pain is episodic and comes on every half hour and it lasts for 10 minutes. She reported a history of heart chest pain for about 5 years. Of note patient she had a stress test 6 months ago that was unremarkable. Review of systems is negative except as stated in HPI. Vitals/I&O's: Vital Signs Temp Pulse Resp BP Pulse Ox 97.9 F 88 16 124/79 H 96 04/20/18 19:01 04/20/18 19:01 04/20/18 19:01 04/20/18 19:01 04/20/18 19:01 Oxygen Delivery Method Room Air Weight: 99.79 kg Body Mass Index (BMI) 38.9 Finger Stick Blood Glucose 143 General: Alert, Oriented x3, Cooperative HEENT: Atraumatic, PERRLA, EOMI, Normocephalic Neck: Supple, No JVD, Negative Carotid Bruits Lungs: Clear to auscultation, Normal air movement Cardiovascular: Regular rate, No murmurs Abdomen: Bowel Sounds Present, Soft, Tender - Diffuse Extremities: No edema, Capillary Refill Less than 3 Seconds Skin: No rashes, No breakdown Musculoskeletal: No Tenderness to Palpation of Joints or Extremities Neurological: Cranial nerves II-XII grossly intact Psych/Mental Status: Normal Affect, Appropriate Laboratory Results 04/20/18 15:20: WBC 9.3, RBC 3.85 L, Hgb 12.1, Hct 37.7, MCV 97.9, MCH 31.4, MCHC 32.1, RDW 15.3 H, RDW Differential 54.1 H, Plt Count 203, MPV 9.6, Immature Gran % (Auto) 0.200, Neut % (Auto) 78.1 H, Lymph % (Auto) 10.6 L, [place] % (Auto) 10.5 H, Eos % (Auto) 0.5, Baso % (Auto) 0.1, Absolute Neuts (auto) 7.3, Absolute Lymphs (auto) 0.99, Total Counted Not Reportable, Differential Comment SCANNED 04/20/18 15:20: Sodium Cancelled, Potassium Cancelled, Chloride Cancelled, Carbon Dioxide Cancelled, Anion Gap Cancelled, BUN Cancelled, Creatinine Cancelled, Estim Creat Clear Calc Cancelled, Est GFR (MDRD) Af Amer Cancelled, Est GFR (MDRD) Non-Af Cancelled, BUN/Creatinine Ratio Cancelled, Glucose Cancelled, Calcium Cancelled, Total Bilirubin Cancelled, AST Cancelled, ALT Cancelled, Alkaline Phosphatase Cancelled, Total Protein Cancelled, Albumin Cancelled, Globulin Cancelled, Albumin/Globulin Ratio Cancelled 04/20/18 16:05: Sodium 139, Potassium 3.6, Chloride 99, Carbon Dioxide 32.0, Anion Gap 8, BUN 18, Creatinine 1.21 H, Estim Creat Clear Calc 41.92, Est GFR (MDRD) Af Amer 59 L, Est GFR (MDRD) Non-Af 49 L, BUN/Creatinine Ratio 14.9, Glucose 156 H, Calcium 8.4 L, Total Bilirubin 0.50, AST 28, ALT 22, Alkaline Phosphatase 73, Total Protein 6.5, Albumin 2.9 L, Globulin 3.6, Albumin/Globulin Ratio 0.8 L 04/20/18 16:05: Troponin I < 0.015 Current Medications Hydrocodone Bitart/Acetaminophen (Hydro 5mg-325mg) 1 - 2 tablet PO Q6H PRN PRN PRN Reason: Mild-Moderate (pain scale 1-5) Albuterol Sulfate (Ventolin Hfa (Sp)) 2 puff INHALATION Q6H PRN PRN Reason: shortness of breath Bisacodyl (Dulcolax) 10 mg RECTAL .X1 PRN PRN PRN Reason: See label comments Bisacodyl (Dulcolax) 10 mg PO .X1 PRN PRN PRN Reason: See label comments Duloxetine HCl (Cymbalta) 60 mg PO DAILY TIFFANIE Enoxaparin Sodium (Lovenox) 40 mg SC DAILY@1000 TIFFANIE Furosemide (Lasix) 20 mg PO BID TIFFANIE Gabapentin (Neurontin) 300 mg PO TID TIFFANIE Hydromorphone HCl (Dilaudid Inj) 1 - 2 mg IV Q2H PRN PRN PRN Reason: Mod/Severe (pain scale 6-10) Lactated Ringer's () 1,000 mls @ 75 mls/hr IV .[id number] TIFFANIE Linagliptin (Tradjenta) 5 mg PO DAILY TIFFANIE Lisinopril (Zestril) 5 mg PO DAILY COUNT INCLUDES THE [facility] Non-Formulary Medication (Omeprazole Magnesium [Prilosec Otc]) 20 mg PO DAILY COUNT INCLUDES THE [facility] Non-Formulary Medication (Simvastatin) 20 mg PO QHS TIFFANIE Non-Formulary Medication (Tizanidine Hcl [Tizanidine Hcl]) 4 mg PO QHS COUNT INCLUDES THE [facility] Non-Formulary Medication (Umeclidinium) 1 inh INHALATION Q24H TIFFANIE Ondansetron HCl (Zofran) 4 mg IV Q8H PRN PRN PRN Reason: Nausea Senna/Docusate Sodium (Senokot-S, Christa-Colace) 2 tablet PO QHS COUNT INCLUDES THE [facility] Trazodone HCl (Desyrel) 200 mg PO QHS COUNT INCLUDES THE [facility] Medical Necessity - Tobacco Use Smoking Status: Former smoker Assessment/Plan All Active Problems (Last Reviewed 04/20/18 @ 18:17 by Husam Barney MD) Gallbladder sludge (Acute) Right upper quadrant abdominal pain (Acute) Abdominal pain (Acute) Stage 2 moderate COPD by GOLD classification (Acute) Lower GI bleed (Acute) Ischemic colitis (Acute) SIRS (systemic inflammatory response syndrome) (Acute) Chest pain (Acute) Pancreatitis (Resolved) Patient with a significant history of diabetes mellitus, hypertension, hyperlipidemia, CKD, who recently (04/17/2018) had cholecystectomy and has not been able to have a bowel movement although she tried home Laxative presents to the emergency department with diffuse abdominal pain, which improved after a bowel movement with some soap enema. Because patient also had chest pain hospitalist service was consulted Chest pain Admit to a monitored bed on PCU Her chest pain has been going above about 5 years and she had a stress test about 6 months ago was unremarkable. We will cycle her troponin and if troponin is negative, consider NSAIDs as needed for pain. CXR independently did not show any acute pathology. EKG is unremarkable Received aspirin 325 mg. ASA 81 mg p.o. daily Home Lipitor changed from 10 mg to 80 mg daily. Proton pump inhibitors escalated to Protonix 40 mg daily SL NTG 0.4 mg prn as needed for chest pain Stat EKG as needed for chest pain Abdominal pain with constipation in the setting of recent cholecystectomy Constipation resolved with enema Abdominal pain improved General surgery to follow Diabetes mellitus Blood glucose on admission was fairly controlled. Tradjenta continued Hypertension Blood pressure on admission was within goal Lisinopril continued Depression Cymbalta and trazodone continued CKD Creatinine on admission is at baseline DVT prophylaxis On subcutaneous Lovenox. Code Visit Inpatient E&M: 32405 Init Hosp L3
--- NOTE | 2018-04-20 20:20 | EKG12_ITS ---
Test Reason : ADM EKG Blood Pressure : / mmHG Vent. Rate : 096 BPM Atrial Rate : 096 BPM P-R Int : 162 ms QRS Dur : 094 ms QT Int : 364 ms P-R-T Axes : 053 033 040 degrees QTc Int : 459 ms Normal sinus rhythm Normal ECG When compared with ECG of 17-APR-2018 10:06, No significant change was found Confirmed by ILSA BE, BRIAN ([id number]), market editor REINIER PENDLETON ([id number]) on 04/24/2018 3:28:52 PM Referred By: CELESTINE Confirmed By:BRIAN ROSENBAUM MD
--- NOTE | 2018-04-20 21:33 | NURSING ---
Er insulation cupola charger aware that pt ok to come to the floor at this time.
[2018-04-20] MEDS: Lactated Ringers 1,000 ML 75 ML IV (22:02)
[2018-04-20] MEDS: traZODone 100 MG Tablet 200 MG PO (22:04)
[2018-04-20] MEDS: Furosemide 20 MG Tablet PO (22:04)
[2018-04-20] MEDS: Aspirin 325 MG Tablet PO (22:04)
[2018-04-20] MEDS: Gabapentin 300 MG Capsule 600 MG PO (22:05)
[2018-04-20] MEDS: Senna/Docusate Sodium 1 Tablet 2 TABLET PO (22:06)
[2018-04-20] MEDS: tiZANidine HCl 2 MG Tablet 4 MG PO (22:06)
[2018-04-20] MEDS: Atorvastatin Calcium 80 MG Tablet PO (22:08)
[2018-04-20] MEDS: Pantoprazole Sodium 40 MG Tablet PO (22:08)
[2018-04-21] VITALS (7 sets, daily range): BP systolic 106–121; BP diastolic 63–65; PULSE 84–93; RESP 16–20; TEMP 36.7–36.8; O2SAT 92–95
[2018-04-21] MEDS: Gabapentin 300 MG Capsule PO (06:25)
[2018-04-21] MEDS: HYDROcodone Bitartrate/Apap 5/325 Tablet PO (09:33)
[2018-04-21] MEDS: Lisinopril 10 MG Tablet 5 MG PO (09:36)
[2018-04-21] MEDS: Furosemide 20 MG Tablet PO (09:36)
[2018-04-21] MEDS: DULoxetine Hcl 60 MG Capsule PO (09:36)
[2018-04-21] MEDS: LINAGLIPTIN 5 MG TABLET PO (09:36)
[2018-04-21] MEDS: Aspirin 81 MG TAB.CHEW PO (09:50)
[2018-04-21] MEDS: Pantoprazole Sodium 40 MG Tablet PO (09:51)
--- NOTE | 2018-04-21 10:26 | DCINST_ITS ---
Discharge Diet: Light diet - advance as tolerated Discharge Activity: May Not Drive - for 2-3 days or while taking narcotic pain medications., - - Do not drive, work heavy equipment or sign legal documents for 24 hours. May shower in (days): 1 - with the bandage in place. Additional Activity Instructions:: Pain medication may cause nausea. You should typically eat light foods as you take your pain medications. Pain medication may also cause constipation. If this is a problem for you, please discuss with your doctor. Call your doctor if your incision/area has: Continuous Slow Oozing, Sudden Increased Bleeding, Increased Pain/ Swelling, Increased Redness, Foul Smelling Discharge Call your doctor if you observe: Fever of 101 or Higher Suture Line Care: Avoid Pulling/Pushing, Avoid Pinching/Bending Additional Dressing/Incision Instructions:: Leave operative bandaids on for 2 days. When you remove dressing, leave Steri-Strips on until your follow-up appointment, or until the Steri-Strips fall off on their own. Allergies/Adverse Reactions: Allergies No Known Allergies Allergy (Verified 04/20/18 15:00) Medications to take at Discharge Cholecalciferol (VIT D3) [Vitamin D3] 1,000 unit PO DAILY 10/08/15 Lisinopril [Zestril] 5 mg PO DAILY 10/08/15 Simvastatin [Zocor] 20 mg PO QHS 10/08/15 Tizanidine HCl 4 mg PO QHS 10/08/15 Trazodone HCl 200 mg PO QHS 08/23/16 Duloxetine Hcl [Cymbalta] 60 mg PO DAILY 10/15/17 Linagliptin [Tradjenta] 5 mg PO DAILY 10/15/17 albuterol sulfate HFA 90 mcg/actuation aerosol inhaler 2 puff INHALATION Q6H PRN #1 device 11/08/17 Ondansetron [Zofran Odt] 4 mg PO Q8H PRN PRN #10 tab 11/12/17 furosemide 20 mg tablet 20 mg PO BID tab 11/15/17 Calcium Carbonate [Tums] 200 mg PO PRN PRN 11/28/17 Gabapentin [Neurontin] 300 mg PO 0800,1200 11/28/17 Omeprazole Magnesium [Prilosec Otc] 20 mg PO DAILY 11/28/17 Umeclidinium Brm/Vilanterol Tr [Anoro Ellipta 62.5-25 Mcg INH] 1 inh INHALATION Q24H 11/28/17 Oxycodone HCl/Acetaminophen [Percocet 5/325] 1 - 2 tab PO Q4H PRN PRN 5 Days # 30 tab 04/17/18 Gabapentin [Neurontin] 600 mg PO QHS 04/20/18 Naldemedine Tosylate [Symproic] 0.2 mg PO BID 04/20/18 Primary Care Physician: Hua Mosher MD [Primary Care Provider] - Test Results: Test results from this visit will be discussed in further detail at your follow- up appointment, if applicable. Please Follow Up With: Husam Barney MD - Please call [phone] to schedule an appointment. When: 7 days after your surgery.
--- NOTE | 2018-04-21 10:26 | PCM.PN.SRG ---
Patient Problems: Active and Suspected Problems (Last Reviewed 04/20/18 @ 18:17 by Husam Barney MD) Abdominal pain (Acute) Subjective: Patient's belly pain is improved. She is moving her bowels. Objective: Abdomen is soft nondistended umbilical incision I think looks better than it did yesterday - Physical Exam Vital Signs Temp Pulse Resp BP Pulse Ox 98.3 F 93 16 106/63 95 04/21/18 02:30 04/21/18 03:01 04/21/18 02:30 04/21/18 02:30 04/21/18 09:37 Oxygen Flow Rate (L/min) 2 Oxygen Delivery Method Nasal Cannula Weight: 230 lb 9.656 oz Body Mass Index (BMI) 40.8 Intake and Output for Last 24 Hours 04/19/18 04/20/18 04/21/18 23:59 23:59 23:59 Intake Total 407 / 407 380 / 380 Balance 407 / 407 380 / 380 Laboratory Tests Past 24 Hrs 04/20/18 04/20/18 04/21/18 20:24 23:50 02:02 Troponin I < 0.015 < 0.015 < 0.015 Medical Necessity - Tobacco Use Smoking Status: Former smoker Assessment/Plan All Active Problems (Last Reviewed 04/20/18 @ 18:17 by Husam Barney MD) Gallbladder sludge (Acute) Right upper quadrant abdominal pain (Acute) Abdominal pain (Acute) 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
== END 2018-04-21 10:25 | disposition home or self-care (01) ==
LOC: ED 15:20 → PCU 19:49
PROVIDERS: Admitting Provider Surgery; Emergency Provider Emergency Medicine; Family Provider Family Medicine; PCP Family Medicine; Visit Provider Internal Medicine
DX: R10.11 Right upper quadrant pain (principal); J44.9 Chronic obstructive pulmonary disease, unspecified; K59.00 Constipation, unspecified; E66.01 Morbid (severe) obesity due to excess calories; M79.7 Fibromyalgia; E78.5 Hyperlipidemia, unspecified; F41.9 Anxiety disorder, unspecified; E11.22 Type 2 diabetes mellitus with diabetic chronic kidney disease; N18.3 Chronic kidney disease, stage 3 (moderate); G89.29 Other chronic pain; I12.9 Hypertensive chronic kidney disease with stage 1 through stage 4 chronic kidney disease, or unspecified chronic kidney disease; Z87.891 Personal history of nicotine dependence; Z79.899 Other long term (current) drug therapy; Z68.41 Body mass index [BMI] 40.0-44.9, adult; Z71.3 Dietary counseling and surveillance; F32.9 Major depressive disorder, single episode, unspecified
CPT/HCPCS: 36415; 71045; 74177; 80053; 84484; 85025; 93005; 96361; 96374; 99218; 99284; J7030; J7040; J7120; Q9967; A4216; G0378; J2405

== ENCOUNTER → 2018-04-24 11:11 | Outpatient (CLI) | payer OTHER, SELFPAY ==
[2018-04-24 14:21] LABS: Absolute Lymphocyte Count 1.48 X10^3/ul (0.83-4.51); Absolute Neutrophil Count 4.7 X10^3/uL (2.0-7.7); Basophil# 0.02 X10^3/uL; Basophil% 0.3 % (0-1); Eosinophil# 0.08 X10^3/uL; Eosinophils% 1.1 % (0-5); Hematocrit 40.2 % (37-47); Hemoglobin 12.8 g/dl (12.0-15.0); Lymphocyte # 1.48 X10^3/ul (4.0); Lymphocyte % 21.2 % (19-41); Mean Corp Hgb Conc 31.8 g/gl (32-36); Mean Corpuscular Hgb 31.7 pg (27.0-32.0); Mean Corpuscular Volume 99.5 fL (81-99); Mean Platelet Vol. 9.9 fl (6.2-12.0); Monocyte# 0.65 X10^3/uL; Monocyte% 9.3 % (0-10); Neutrophil # 4.71 X10^3/uL (2.7-7.7); Neutrophil % 67.7 % (47-70); Platelet Count 273 K/mm3 (150-450); RBC Distribution Width CV 15.7 % (11.6-14.6); RBC Distribution Width SD 56.5 fl (35.1-43.9); Red Blood Count 4.04 M/mm3 (4.2-5.4)
[2018-04-24 14:23] LABS: POSITIVE COUNT NO; POSITIVE DIFFERENTIAL NO; POSITIVE MORPHOLOGY NO
[2018-04-24 14:41] LABS: ALB/GLOB Ratio 0.8 RATIO (0.9-2.4); AST(SGOT) 15 U/L (15-37); Alanine Aminotransfer ALT/SGPT 22 U/L (13-56); Albumin, Serum 3.2 g/dL (3.2-5.0); Alkaline Phosphatase 77 U/L (45-117); Anion Gap 8 (5-15); BUN 12 mg/dL (7-18); BUN/Creat Ratio 8.6 RATIO (10-20); Calcium,Total 9.1 mg/dL (8.5-10.1); Chloride 106 mmol/L (98-107); EST Glomerular Filtration Rate 41 mL/min (>60); Est Glom Filt Rate - Afr Amer 50 mL/min (>60); Globulin 4.2 g/dL (2.2-4.2); Glucose 143 mg/dL (74-106); Potassium 3.9 mmol/L (3.5-5.1); Prealbumin 16.3 mg/dL (20.0-40.0); Protein, Total 7.4 g/dL (6.4-8.2); Sodium Level 144 mmol/L (136-145)
[2018-04-24 14:55] LABS: BNP,B-Type NATRIURETIC PEPTIDE 80.6 pg/mL (0-100)
== END ==
PROVIDERS: Family Provider Family Medicine; PCP Family Medicine; Visit Provider Family Medicine
DX: R60.0 Localized edema (principal)
CPT/HCPCS: 36415; 80053; 83880; 84134; 84443; 85025

== ENCOUNTER 2018-05-18 12:37 | Inpatient (IN) | payer OTHER, SELFPAY ==
[2018-05-18 12:38] VITALS: BP 123/76; PULSE 101; RESP 18; TEMP 36.6; O2SAT 98; BMI 38.0
--- NOTE | 2018-05-18 13:29 | RAD_ITS ---
STUDY: X-RAY - RIGHT FOOT CLINICAL: Female, 58 years old. Pain. Previous fracture. TECHNIQUE: 3 view(s) of the foot. COMPARISON: 12/17/2017 FINDINGS: Normal talus, calcaneus, and tarsal bones. Normal visualized subtalar, talonavicular, calcaneocuboid, tarsal and tarsometatarsal articulations. Normal metatarsi. Normal metatarsophalangeal joint of the great toe. Normal tibial and fibular sesamoid bones. Normal interphalangeal joint of the great toe. Normal phalanges of the great toe. Normal second through fifth metatarsophalangeal joints. Normal interphalangeal joints and phalanges of the lesser toes. The soft tissue structures are unremarkable. There is no demonstrated fracture. RAD/Foot min 3 Views IMPRESSION: Normal x-ray examination of the foot. Electronically Signed: Ralph Stein MD at 14:35 EDT , Service support ,
[2018-05-18 13:54] VITALS: BP 120/74; PULSE 95; RESP 14; O2SAT 98
--- NOTE | 2018-05-18 14:18 | ED.DCSUM_ITS ---
History of Present Illness Chief Complaint: Lower Extremity Injury Informant: Patient, Family Onset: Yesterday Context: Gradual Onset Timing: Continuous Quality: pain Location: lateral and dorsal right foot Current Severity: Severe Maximum Severity: Severe Worsened by: walking. bending ankle. palpation. Relieved by: remaining still Associated Symptoms: no fevers. no new injury. no FB/splinters that they know of. Narrative: Patient broke a bone in her right foot laterally that did not require surgical management around 2 years ago and has been having on and off and on pain ever since. She states this pain started yesterday and has been more severe than the pain she has had in the past 2 years, but similar in nature and location. No new obvious reason for the onset of this pain. She states it is so severe that it is extremely difficult to ambulate and weight-bear at this time, and when she does today, she is dragging her right foot. She has never had gout before. She has chronic numbness in her feet due to peripheral neuropathy associated with diabetes. That is no different. No pain in other joints. - Past Medical History (1) Peripheral neuropathy Status: Chronic (2) Ischemic colitis Status: Chronic (3) CKD (chronic kidney disease) stage 3, GFR 30-59 ml/min Status: Chronic (4) COPD (chronic obstructive pulmonary disease) Status: Chronic (5) Cervical radiculitis Status: Chronic (6) Chronic back pain Status: Chronic (7) Constipation Status: Chronic (8) Diabetes mellitus, type II Status: Chronic (9) Diverticulosis Status: Chronic (10) Fibromyalgia Status: Chronic (11) Gastro-esophageal reflux disease without esophagitis Status: Chronic (12) History of repair of hiatal hernia Status: Chronic (13) Hyperlipidemia Status: Chronic (14) Hypertension Status: Chronic Past Medical History - Allergies and Home Meds Allergies/Adverse Reactions: Allergies No Known Allergies Allergy (Verified 05/18/18 12:39) Primary Care Physician: Hua Mosher MD [Primary Care Provider] - Surgical History: cholecystectomy - 04/17/2018, - - Cervical spine surgery, BLTL, L shoulder surgery, R heel spur removal, hiatal hernia repair with mesh Lives: Spouse/ Significant Other Smoking Status: Current every day smoker - Family History Maternal Family History: Family History (Last Reviewed 04/25/18 @ 14:58 by Josi Garvey) Mother Hypertension Family History: Reports: Diabetes, Hypertension Paternal Family History: Family History (Last Reviewed 04/25/18 @ 14:58 by Josi Garvey) Mother Hypertension Family History: Reports: Cancer - Father w/ lung CA, metastatic, 70s., Diabetes, Heart Disease - [place] age 70's, Hypertension Review of Systems General: Denies: Chills, Fever, Sweats Cardiovascular: Denies: Chest pain, Palpitations Respiratory: Denies: Dyspnea, Cough, Dyspnea on exertion Gastrointestinal: Denies: Abdominal pain, Nausea, Vomiting, Diarrhea, Melena, Hematochezia Genitourinary: Denies: Dysuria, Hematuria, Frequency Musculoskeletal: Reports: Back pain, Swelling - Right ankle/foot, Extremity Pain - Right ankle/foot Skin: Denies: Rash Neurological: Reports: Parasthesia - Both feet. Denies: Headache, Weakness Physical Exam Vital Signs/Narrative: Vital Signs Temp Pulse Resp BP Pulse Ox 05/18/18 13:54 95 14 120/74 98 05/18/18 12:38 98 F 101 H 18 123/76 H 98 General: Well nourished, Well developed Head: Normocephalic, Atraumatic Neck: Supple, - - FROM Respiratory: No distress Extremities: Tenderness - Severe tenderness with superficial palpation and light touch of right anterior and lateral midfoot and ankle. Significant limitation with regards to ranging ankle. No lymphangitis. No abscess. No skin lesions/bullae/petechiae/purpura. Locally swollen in area of tenderness. Is spared medially at ankle/foot; no findings there. Skin: No rash, - - Blanching, tender erythema without focal lesion lateral right midfoot Neurological: Alert, Oriented x3, Cranial nerves II-XII grossly intact, Normal Strength, Normal Sensation Diagnostic/Tx/Re-eval Impressions Foot X-Ray 05/18/18 13:29 IMPRESSION: Normal x-ray examination of the foot. Electronically Signed: Ralph Stein MD at 14:35 EDT , Service support , 05/18/18 13:29 Xray Foot [Foot min 3 Views] [RAD] Stat 05/18/18 15:17 Fluid - Synovial (joint) Gram Stain - Preliminary Laboratory Results 05/18/18 05/18/18 05/18/18 14:30 14:30 15:17 WBC 10.6 RBC 4.30 Hgb 13.6 Hct 42.0 MCV 97.7 MCH 31.6 MCHC 32.4 RDW 14.7 H RDW Differential 51.6 H Plt Count 182 MPV 10.1 Immature Gran % (Auto) 0.400 Neut % (Auto) 77.0 H Lymph % (Auto) 13.3 L Sac % (Auto) 8.6 Eos % (Auto) 0.4 Baso % (Auto) 0.3 Absolute Neuts (auto) 8.2 H Absolute Lymphs (auto) 1.41 Total Counted Not Reportable ESR 54 H Sodium 141 Potassium 3.3 L Chloride 106 Carbon Dioxide 29.0 Anion Gap 6 BUN 26 H Creatinine 1.56 H Estim Creat Clear Calc 32.52 Est GFR (MDRD) Af Amer 44 L Est GFR (MDRD) Non-Af 36 L BUN/Creatinine Ratio 16.7 Glucose 137 H Uric Acid 9.2 H Calcium 8.8 C-React Prot Ext Range 21.80 H Fluid Source Cancelled Fluid Color Cancelled Fluid Appearance Cancelled Fluid WBC Cancelled Fluid RBC Cancelled Fluid Tot Cell Count Cancelled Fld Polynuclear WBCs # Cancelled Fld Polynuclear WBCs % Cancelled Fluid Mononuclear WBCs Cancelled Fld Mononuclear WBCs % Cancelled Fluid Neutrophils Cancelled Fluid Lymphocytes Cancelled Fluid Monocytes Cancelled Fluid Plasma Cells Cancelled Fluid Macrophages Cancelled Fld Mesothelial Cells Cancelled Fluid Other Cells Cancelled Fluid Crystals SEE PATH REV Fluid Crystal Source OTHER Fl Crystal Path Review Will follow Fl Pathologist Comment Cancelled Fluid Comment 2 Cancelled - Medical Decision Making Tests are as above, with high ESR, high CRP, borderline white blood count of 10.6, no bandemia, elevated uric acid, and preliminary crystal analysis of synovial fluid of the right ankle joint is negative. 1 cc of joint fluid was aspirated, after consenting the patient and providing local anesthesia with 1 cc of plain 1% lidocaine, and there is not enough for a cell count. The lab could run a culture and crystal analysis only. The fluid was relatively transparent, yellow, with a slight amount of traumatic blood, and with a positive string sign. She states she is in so much pain she is having difficulty walking. She was not better with colchicine and NSAID, so she was given [place]. MRI is not available at this time. The plan is for admission, empiric antibiotics, for possible advanced imaging and awaiting culture results of the right ankle synovial fluid. Differential includes septic arthritis, cellulitis, inflammatory reaction where she had prior fracture, and stress fracture that has not yet showed up on x-ray. ED Disposition - Plan for ED Patient: Disposition: Acute Care [facility] Chief Complaint: Lower Extremity Injury Diagnosis: Acute pain of right foot, Acute right ankle pain Referrals: Hua Mosher MD [Primary Care Provider] -
[2018-05-18] MEDS: Ketorolac 15 MG/ML Vial IV (14:27)
[2018-05-18 14:40] LABS: Absolute Lymphocyte Count 1.41 X10^3/ul (0.83-4.51); Absolute Neutrophil Count 8.2 X10^3/uL (2.0-7.7); Basophil# 0.03 X10^3/uL; Basophil% 0.3 % (0-1); Eosinophil# 0.04 X10^3/uL; Eosinophils% 0.4 % (0-5); Hemoglobin 13.6 g/dl (12.0-15.0); Lymphocyte # 1.41 X10^3/ul (4.0); Lymphocyte % 13.3 % (19-41); Mean Corp Hgb Conc 32.4 g/gl (32-36); Mean Corpuscular Hgb 31.6 pg (27.0-32.0); Mean Corpuscular Volume 97.7 fL (81-99); Mean Platelet Vol. 10.1 fl (6.2-12.0); Monocyte# 0.91 X10^3/uL; Monocyte% 8.6 % (0-10); Neutrophil # 8.19 X10^3/uL (2.7-7.7); Platelet Count 182 K/mm3 (150-450); RBC Distribution Width CV 14.7 % (11.6-14.6); RBC Distribution Width SD 51.6 fl (35.1-43.9); White Blood Count 10.6 K/mm3 (4.4-11.0)
[2018-05-18 14:41] LABS: POSITIVE COUNT NO; POSITIVE DIFFERENTIAL NO; POSITIVE MORPHOLOGY NO
[2018-05-18 14:47] LABS: Erythrocyte Sedimentation Rate 54 mm/hr (0-30)
[2018-05-18 14:59] LABS: Anion Gap 6 (5-15); BUN 26 mg/dL (7-18); BUN/Creat Ratio 16.7 RATIO (10-20); Calcium,Total 8.8 mg/dL (8.5-10.1); Chloride 106 mmol/L (98-107); Creatinine, Serum 1.56 mg/dL (0.55-1.02); EST Glomerular Filtration Rate 36 mL/min (>60); Est Glom Filt Rate - Afr Amer 44 mL/min (>60); Estimated Creatinine Clearance 32.52 ml/min; Glucose 137 mg/dL (74-106); Potassium 3.3 mmol/L (3.5-5.1); Sodium Level 141 mmol/L (136-145); Uric Acid 9.2 mg/dL (2.6-6.0)
[2018-05-18] MEDS: HYDROcodone Bitartrate/Apap 5/325 Tablet PO ×2 (16:10→21:30)
[2018-05-18 16:18] LABS: Body Fluid QC Type(s) BF1Q; Source- Body Fluid OTHER
--- NOTE | 2018-05-18 18:05 | NURSING ---
MED SURG ACUTE GOUTY TENOSYNOVITIS OF RT FOOT OLEMOEE
--- NOTE | 2018-05-18 18:36 | PCM.HP.STD ---
Problem List (1) gouty tenosynovitis Status: Acute History of Present Illness Date of Admission: 05/18/18 Chief Complaint: Pain, swelling and limitation of movement of the right foot/ankle The patient is a 58 year old F with a history of type 2 diabetes, stage III CKD, hypertension and morbid obesity. Presents to the emergency department with a 1 day history of pain swelling and painful limitation of movement of the right foot and ankle. Patient describes pain as throbbing and severe rated at 10 out of 10. She denies any trauma to the affected foot or ankle. Of note is that several years ago she did have a fracture of the right ankle with nonoperative treatment of the same. She denies any fever or chills. Denies any recent change to medications. She denies any family history of gout. She denies any shortness of breath or chest pain. [] Past Medical History Past Medical History (Chronic Problems): Chronic Problems (Last Reviewed 04/25/18 @ 14:58 by Josi Garvey) Peripheral neuropathy (Chronic) Constipation (Chronic) Diverticulosis (Chronic) Morbid obesity with BMI of 40.0-44.9, adult (Chronic) Gastro-esophageal reflux disease without esophagitis (Chronic) Epigastric pain (Chronic) Ischemic colitis (Chronic) History of repair of hiatal hernia (Chronic) Cervical vertebral fusion (Chronic) Cervical radiculitis (Chronic) Fibromyalgia (Chronic) COPD (chronic obstructive pulmonary disease) (Chronic) Anxiety (Chronic) Hyperlipidemia (Chronic) Tobacco use (Chronic) on chantix Hypertension (Chronic) Diabetes mellitus, type II (Chronic) Chronic back pain (Chronic) CKD (chronic kidney disease) stage 3, GFR 30-59 ml/min (Chronic) Medical History: Medical History (Last Reviewed 04/25/18 @ 14:58 by Josi Garvey) Cervical radiculitis (Chronic) M54.12 Fibromyalgia (Chronic) M79.7 Chest pain (Acute) R07.9 COPD (chronic obstructive pulmonary disease) (Chronic) J44.9 Anxiety (Chronic) F41.9 Hyperlipidemia (Chronic) E78.5 Tobacco use (Chronic) Z72.0 on chantix Hypertension (Chronic) I10 Diabetes mellitus, type II (Chronic) E11.9 Chronic back pain (Chronic) M54.9, G89.29 CKD (chronic kidney disease) stage 3, GFR 30-59 ml/min (Chronic) N18.3 Allergies No Known Allergies Allergy (Verified 05/18/18 12:39) Home Medications: Ambulatory Orders Medication Instructions Recorded Cholecalciferol (VIT D3) [Vitamin 1,000 unit PO DAILY 10/08/15 D3] Lisinopril [Zestril] 5 mg PO DAILY 10/08/15 Simvastatin [Zocor] 20 mg PO QHS 10/08/15 Tizanidine HCl 4 mg PO QHS 10/08/15 Trazodone HCl 200 mg PO QHS 08/23/16 Duloxetine Hcl [Cymbalta] 60 mg PO DAILY 10/15/17 Linagliptin [Tradjenta] 5 mg PO DAILY 10/15/17 albuterol sulfate HFA 90 2 puff INHALATION Q6H PRN #1 device 11/08/17 mcg/actuation aerosol inhaler Ondansetron [Zofran Odt] 4 mg PO Q8H PRN PRN #10 tab 11/12/17 furosemide 20 mg tablet 20 mg PO BID tab 11/15/17 Calcium Carbonate [Tums] 200 mg PO PRN PRN 11/28/17 Gabapentin [Neurontin] 300 mg PO 0800,1200 11/28/17 Omeprazole Magnesium [Prilosec Otc] 20 mg PO DAILY 11/28/17 Umeclidinium Brm/Vilanterol Tr 1 inh INHALATION Q24H 11/28/17 [Anoro Ellipta 62.5-25 Mcg INH] Oxycodone HCl/Acetaminophen 1 - 2 tab PO Q4H PRN PRN 5 Days 04/17/18 [Percocet 5/325] #30 tab Gabapentin [Neurontin] 600 mg PO QHS 04/20/18 Naldemedine Tosylate [Symproic] 0.2 mg PO BID 04/20/18 Surgical History: Surgical History (Last Reviewed 04/25/18 @ 14:58 by Josi Garvey) History of repair of hiatal hernia (Chronic) Z98.890, Z87.19 Cervical vertebral fusion (Chronic) M43.22 History of colonoscopy Onset Date: ~12/05/17 Z98.890 History of tubal ligation Z98.51 history EGD with ph probe Onset Date: ~12/09/17 Surgical History: cholecystectomy - 04/17/2018, - - Cervical spine surgery, BLTL, L shoulder surgery, R heel spur removal, hiatal hernia repair with mesh Lives: Spouse/ Significant Other Smoking Status: Current every day smoker - *Family History Maternal Family History: Family History (Last Reviewed 04/25/18 @ 14:58 by Josi Garvey) Mother Hypertension History Items: Diabetes, Hypertension Paternal Family History: Family History (Last Reviewed 04/25/18 @ 14:58 by Josi Garvey) Mother Hypertension History Items: Cancer - Father w/ lung CA, metastatic, 70s., Diabetes, Heart Disease - [place] age 70's, Hypertension Review of Systems Constitutional: Denies: Anorexia, Chills, Fever, Night Sweats, Malaise Cardiovascular: Denies: Chest Pain, Edema Respiratory: Denies: Cough Gastrointestinal: Denies: Abdominal Pain, Vomiting Comment: All other systems reviewed and essentially negative. VTE Information - Inpt Only VTE Present on Admission: No Patient Problems: Active and Suspected Problems (Last Reviewed 04/25/18 @ 14:58 by Josi Garvey) Acute pain of right foot (Acute) Acute right ankle pain (Acute) gouty tenosynovitis (Acute) - Physical Exam General: Alert, Oriented x3, Cooperative, - - Patient in painful distress. HEENT: Atraumatic, PERRLA, EOMI, Normocephalic Oral: Moist Mucosa, No Gingival or Mucosal Lesions/ Ulcerations Neck: Supple, No JVD Lungs: Clear to auscultation, Normal air movement, No rhonchi, No wheeze, No rales Cardiovascular: Regular rate, Regular Rhythm, Normal S1, Normal S2, No murmurs, No Ectopic Activity Abdomen: Soft, Non Tender, Non-Distended, Obese Extremities: - - Right foot and ankle dorsiflexed and everted at rest. Obvious swelling of the right ankle and also lateral aspect of the proximal foot. There is exquisite tenderness and warmth in all these areas. Dorsiflexion of the foot and toes is severely restricted due to pain. Passive flexion of the toes and foot induces extreme pain. There is warmth over these areas no redness noted. No bruising noted. Musculoskeletal: Tenderness Neurological: Cranial nerves II-XII grossly intact, Neuro grossly intact Psych/Mental Status: Normal Affect, Appropriate Vital Signs Temp Pulse Resp BP Pulse Ox 98 F 95 14 120/74 98 05/18/18 12:38 05/18/18 13:54 05/18/18 13:54 05/18/18 13:54 05/18/18 13:54 Oxygen Delivery Method Room Air Weight: 97.522 kg Body Mass Index (BMI) 38.0 Finger Stick Blood Glucose 143 Microbiology Past 72 Hours 05/18/18 15:17 Gram Stain - Preliminary Fluid - Synovial (joint) Laboratory Tests Past 24 Hrs 05/18/18 05/18/18 05/18/18 14:30 14:30 15:17 WBC 10.6 RBC 4.30 Hgb 13.6 Hct 42.0 MCV 97.7 MCH 31.6 MCHC 32.4 RDW 14.7 H RDW Differential 51.6 H Plt Count 182 MPV 10.1 Immature Gran % (Auto) 0.400 Neut % (Auto) 77.0 H Lymph % (Auto) 13.3 L [place] % (Auto) 8.6 Eos % (Auto) 0.4 Baso % (Auto) 0.3 Absolute Neuts (auto) 8.2 H Absolute Lymphs (auto) 1.41 Total Counted Not Reportable ESR 54 H Sodium 141 Potassium 3.3 L Chloride 106 Carbon Dioxide 29.0 Anion Gap 6 BUN 26 H Creatinine 1.56 H Estim Creat Clear Calc 32.52 Est GFR (MDRD) Af Amer 44 L Est GFR (MDRD) Non-Af 36 L BUN/Creatinine Ratio 16.7 Glucose 137 H Uric Acid 9.2 H Calcium 8.8 C-React Prot Ext Range 21.80 H Fluid Source Cancelled Fluid Color Cancelled Fluid Appearance Cancelled Fluid WBC Cancelled Fluid RBC Cancelled Fluid Tot Cell Count Cancelled Fld Polynuclear WBCs # Cancelled Fld Polynuclear WBCs % Cancelled Fluid Mononuclear WBCs Cancelled Fld Mononuclear WBCs % Cancelled Fluid Neutrophils Cancelled Fluid Lymphocytes Cancelled Fluid Monocytes Cancelled Fluid Plasma Cells Cancelled Fluid Macrophages Cancelled Fld Mesothelial Cells Cancelled Fluid Other Cells Cancelled Fluid Crystals SEE PATH REV Fluid Crystal Source OTHER Fl Crystal Path Review Will follow Fl Pathologist Comment Cancelled Fluid Comment 2 Cancelled Assessment/Plan All Active Problems (Last Reviewed 04/25/18 @ 14:58 by Josi Garvey) Gallbladder sludge (Acute) Right upper quadrant abdominal pain (Acute) Abdominal pain (Acute) Acute pain of right foot (Acute) Acute right ankle pain (Acute) gouty tenosynovitis (Acute) Stage 2 moderate COPD by GOLD classification (Acute) Lower GI bleed (Acute) SIRS (systemic inflammatory response syndrome) (Acute) Chest pain (Acute) Pancreatitis (Resolved) 1. Acute gouty arthritis and tenosynovitis involving the right ankle and extensor tendons. Plain x-rays did not reveal any fractures. Arthrocentesis has been performed by ED physician and samples have been sent for routine testing. Patient has stage III CKD and so NSAIDs are likely to be ideal. Will treat patient with high-dose IV steroids and expect improvement within the next 24 hours. Should patient improve, she should be able to be discharged on a prolonged taper of oral prednisone. Risk factors for an acute gout attack in this case will be morbid obesity, stage III CKD, type 2 diabetes and patient being on diuretics. 2. Stage III CKD appears to be stable. 3. Hypertension well-controlled. 4. Type 2 diabetes. Appears well controlled. We will continue home regimen of antidiabetic medicines. 5. Morbid obesity. Code Visit Inpatient E&M: 19375 Init Hosp L3
[2018-05-18 18:53] VITALS: BMI 37.4; BMI 38.1
[2018-05-18 19:09] VITALS: BP 102/61; PULSE 82; RESP 18; TEMP 36.4; O2SAT 97
--- NOTE | 2018-05-18 20:09 | NURSING ---
DR AGUILERA PAGED FOR PAIN MED FOR PATIENT.
[2018-05-18] MEDS: 0.9% NaCl Peripheral Flush Adult/Peds IV (20:54)
[2018-05-18] MEDS: MethylPREDNISolone 125 MG/2 ML Vial 60 MG IV (20:54)
[2018-05-18 21:05] LABS: Bedside Glucose 202 mg/dL (70-110)
[2018-05-18] MEDS: Glimepiride 1 MG Tablet PO (21:36)
[2018-05-18] MEDS: tiZANidine HCl 2 MG Tablet 4 MG PO (21:37)
[2018-05-18] MEDS: Atorvastatin Calcium 10 MG Tablet PO (21:37)
[2018-05-18] MEDS: traZODone 100 MG Tablet 200 MG PO (21:38)
[2018-05-18] MEDS: Gabapentin 600 MG Tablet PO (21:38)
[2018-05-19 01:22] VITALS: BP 94/59; PULSE 75; RESP 16; TEMP 36.5; O2SAT 96
[2018-05-19 05:44] VITALS: BP 112/76; PULSE 74; RESP 16; TEMP 36.3; O2SAT 94
[2018-05-19 05:46] LABS: Absolute Lymphocyte Count 0.61 X10^3/ul (0.83-4.51); Absolute Neutrophil Count 5.7 X10^3/uL (2.0-7.7); Basophil# 0.01 X10^3/uL; Basophil% 0.2 % (0-1); Hematocrit 40.3 % (37-47); Hemoglobin 12.8 g/dl (12.0-15.0); Lymphocyte # 0.61 X10^3/ul (4.0); Lymphocyte % 9.6 % (19-41); Mean Corp Hgb Conc 31.8 g/gl (32-36); Mean Corpuscular Hgb 31.3 pg (27.0-32.0); Mean Corpuscular Volume 98.5 fL (81-99); Mean Platelet Vol. 10.3 fl (6.2-12.0); Monocyte# 0.06 X10^3/uL; Monocyte% 0.9 % (0-10); Neutrophil # 5.68 X10^3/uL (2.7-7.7); Neutrophil % 89.1 % (47-70); Platelet Count 174 K/mm3 (150-450); RBC Distribution Width CV 14.6 % (11.6-14.6); RBC Distribution Width SD 52.1 fl (35.1-43.9); Red Blood Count 4.09 M/mm3 (4.2-5.4); White Blood Count 6.4 K/mm3 (4.4-11.0)
[2018-05-19] MEDS: oxyCODONE 5 MG Tablet PO ×4 (05:50→20:25)
[2018-05-19 05:51] LABS: Bedside Glucose 192 mg/dL (70-110)
[2018-05-19] MEDS: 0.9% NaCl Peripheral Flush Adult/Peds IV ×3 (05:51→20:53)
[2018-05-19] MEDS: MethylPREDNISolone 125 MG/2 ML Vial 60 MG IV ×2 (05:52→14:03)
[2018-05-19 06:05] LABS: Anion Gap 9 (5-15); BUN 31 mg/dL (7-18); BUN/Creat Ratio 22.5 RATIO (10-20); Calcium,Total 8.7 mg/dL (8.5-10.1); Chloride 109 mmol/L (98-107); Creatinine, Serum 1.38 mg/dL (0.55-1.02); EST Glomerular Filtration Rate 42 mL/min (>60); Est Glom Filt Rate - Afr Amer 50 mL/min (>60); Estimated Creatinine Clearance 36.76 ml/min; Glucose 196 mg/dL (74-106); Potassium 4.3 mmol/L (3.5-5.1); Sodium Level 145 mmol/L (136-145)
[2018-05-19 06:08] LABS: POSITIVE COUNT NO; POSITIVE DIFFERENTIAL NO; POSITIVE MORPHOLOGY NO
[2018-05-19] MEDS: DULoxetine Hcl 60 MG Capsule PO (07:56)
[2018-05-19] MEDS: Furosemide 20 MG Tablet PO (07:56)
[2018-05-19] MEDS: Pantoprazole Sodium 20 MG Tablet PO (07:57)
[2018-05-19] MEDS: Lisinopril 5 MG Tablet PO (07:57)
[2018-05-19] MEDS: Gabapentin 300 MG Capsule PO ×2 (07:57→11:09)
[2018-05-19] MEDS: Enoxaparin 40 MG/0.4 ML Syringe SC (07:58)
[2018-05-19] MEDS: LINAGLIPTIN 5 MG TABLET PO (08:03)
[2018-05-19 11:04] VITALS: BP 135/75; PULSE 96; RESP 18; TEMP 36.7; O2SAT 92
[2018-05-19 11:15] LABS: Bedside Glucose 232 mg/dL (70-110)
--- NOTE | 2018-05-19 11:29 | PCM.PN.HOSP ---
Patient Problems: Active and Suspected Problems (Last Reviewed 04/25/18 @ 14:58 by Josi Garvey) Acute pain of right foot (Acute) Acute right ankle pain (Acute) gouty tenosynovitis (Acute) Subjective: Patient right ankle swelling is much better. Pain has improved. Still swelling over lateral aspect of right ankle. Arthrocentesis was done in ER but seems fluid was insufficient in quantity as reported by lab. Discussed with the patient regarding repeat arthrocentesis and currently she does not want as swelling and pain has improved. Vitals/I&O's: Vital Signs Temp Pulse Resp BP Pulse Ox 98.0 F 96 18 135/75 H 92 05/19/18 11:04 05/19/18 11:04 05/19/18 11:04 05/19/18 11:04 05/19/18 11:04 Oxygen Flow Rate (L/min) 2 Oxygen Delivery Method Room Air Weight: 211 lb 3.245 oz Body Mass Index (BMI) 37.4 Finger Stick Blood Glucose 143 Intake and Output for Last 24 Hours 05/17/18 05/18/18 05/19/18 23:59 23:59 23:59 Intake Total 980 / 980 Balance 980 / 980 General: Alert, Oriented x3, Cooperative HEENT: Atraumatic, PERRLA, EOMI, Normocephalic Neck: Supple, No JVD, Negative Carotid Bruits Lungs: Clear to auscultation, Normal air movement Cardiovascular: Regular rate, No murmurs Abdomen: Bowel Sounds Present, Soft, Non Tender, Non-Distended Extremities: No edema, Capillary Refill Less than 3 Seconds Skin: No rashes, No breakdown Musculoskeletal: Arthritic Changes, Tenderness - Or right ankle mainly lateral aspect. No erythema. Neurological: Cranial nerves II-XII grossly intact Psych/Mental Status: Normal Affect, Appropriate Microbiology Past 72 Hours 05/18/18 15:17 Fluid - Synovial (joint) Gram Stain - Preliminary 05/18/18 15:17 Fluid - Synovial (joint) Body Fluid Culture - Preliminary Laboratory Results 05/18/18 14:30: Sodium 141, Potassium 3.3 L, Chloride 106, Carbon Dioxide 29.0, Anion Gap 6, BUN 26 H, Creatinine 1.56 H, Estim Creat Clear Calc 32.52, Est GFR (MDRD) Af Amer 44 L, Est GFR (MDRD) Non-Af 36 L, BUN/Creatinine Ratio 16.7, Glucose 137 H, Uric Acid 9.2 H, Calcium 8.8, C-React Prot Ext Range 21.80 H 05/18/18 14:30: WBC 10.6, RBC 4.30, Hgb 13.6, Hct 42.0, MCV 97.7, MCH 31.6, MCHC 32.4, RDW 14.7 H, RDW Differential 51.6 H, Plt Count 182, MPV 10.1, Immature Gran % (Auto) 0.400, Neut % (Auto) 77.0 H, Lymph % (Auto) 13.3 L, [place] % (Auto) 8.6, Eos % (Auto) 0.4, Baso % (Auto) 0.3, Absolute Neuts (auto) 8.2 H, Absolute Lymphs (auto) 1.41, Total Counted Not Reportable, ESR 54 H 05/18/18 15:17: Fluid Source Cancelled, Fluid Color Cancelled, Fluid Appearance Cancelled, Fluid WBC Cancelled, Fluid RBC Cancelled, Fluid Tot Cell Count Cancelled, Fld Polynuclear WBCs # Cancelled, Fld Polynuclear WBCs % Cancelled, Fluid Mononuclear WBCs Cancelled, Fld Mononuclear WBCs % Cancelled, Fluid Neutrophils Cancelled, Fluid Lymphocytes Cancelled, Fluid Monocytes Cancelled, Fluid Plasma Cells Cancelled, Fluid Macrophages Cancelled, Fld Mesothelial Cells Cancelled, Fluid Other Cells Cancelled, Fluid Crystals SEE PATH REV, Fluid Crystal Source OTHER, Fl Crystal Path Review Will follow, Fl Pathologist Comment Cancelled, Fluid Comment 2 Cancelled 05/18/18 20:50: POC Glucose 202 H 05/19/18 05:10: WBC 6.4, RBC 4.09 L, Hgb 12.8, Hct 40.3, MCV 98.5, MCH 31.3, MCHC 31.8 L, RDW 14.6, RDW Differential 52.1 H, Plt Count 174, MPV 10.3, Immature Gran % (Auto) 0.200, Neut % (Auto) 89.1 H, Lymph % (Auto) 9.6 L, [place] % (Auto) 0.9, Eos % (Auto) 0.0, Baso % (Auto) 0.2, Absolute Neuts (auto) 5.7, Absolute Lymphs (auto) 0.61 L, Total Counted Not Reportable 05/19/18 05:10: Sodium 145, Potassium 4.3, Chloride 109 H, Carbon Dioxide 27.0, Anion Gap 9, BUN 31 H, Creatinine 1.38 H, Estim Creat Clear Calc 36.76, Est GFR (MDRD) Af Amer 50 L, Est GFR (MDRD) Non-Af 42 L, BUN/Creatinine Ratio 22.5 H, Glucose 196 H, Calcium 8.7 05/19/18 05:40: POC Glucose 192 H 05/19/18 11:08: POC Glucose 232 H Current Medications Albuterol Sulfate (Ventolin Aerosols) 2.5 mg INHALATION Q4H PRN PRN PRN Reason: SHORTNESS OF BREATH Atorvastatin Calcium (Lipitor) 10 mg PO QHS [facility] Last Admin: 05/18/18 21:37 Dose: 10 mg Calcium Carbonate (Tums) 200 mg PO PRN PRN PRN Reason: HEARTBURN Cholecalciferol (Vitamin D) 1,000 unit PO DAILY [facility] Last Admin: 05/19/18 07:56 Dose: 1,000 unit Duloxetine HCl (Cymbalta) 60 mg PO DAILY [facility] Last Admin: 05/19/18 07:56 Dose: 60 mg Enoxaparin Sodium (Lovenox) 40 mg SC DAILY@1000 [facility] Last Admin: 05/19/18 07:58 Dose: 40 mg Furosemide (Lasix) 20 mg PO BIDLX [facility] Last Admin: 05/19/18 07:56 Dose: 20 mg Gabapentin (Neurontin) 300 mg PO 0800,1200 [facility] Last Admin: 05/19/18 11:09 Dose: 300 mg Gabapentin (Neurontin) 600 mg PO QHS [facility] Last Admin: 05/18/18 21:38 Dose: 600 mg Glimepiride (Amaryl) 1 mg PO QHS [facility] Last Admin: 05/18/18 21:36 Dose: 1 mg Ipratropium [place]com (Atrovent) 0.5 mg INHALATION Q6HWA.RT [facility] Last Admin: 05/19/18 11:04 Dose: Not Given Linagliptin (Tradjenta) 5 mg PO DAILY [facility] Last Admin: 05/19/18 08:03 Dose: 5 mg Lisinopril (Zestril) 5 mg PO DAILY [facility] Last Admin: 05/19/18 07:57 Dose: 5 mg Magnesium Hydroxide (Milk Of Magnesia) 30 ml PO DAILY PRN PRN PRN Reason: Constipation Methylprednisolone (Solu-Medrol) 60 mg IV Q8 [facility] Last Admin: 05/19/18 05:52 Dose: 60 mg Non-Formulary Medication (Naldemedine Tosylate [Symproic]) 0.2 mg PO BID [facility] Ondansetron HCl (Zofran Odt) 4 mg PO Q8H PRN PRN PRN Reason: NAUSEA Oxycodone HCl (Oxyir) 5 mg PO Q4H PRN PRN PRN Reason: SEVERE PAIN (6-1010) Last Admin: 05/19/18 09:59 Dose: 5 mg Pantoprazole Sodium (Protonix) 20 mg PO DAILY [facility] Last Admin: 05/19/18 07:57 Dose: 20 mg Sodium Chloride () 5 - 30 ml IV UD PRN PRN Reason: SALINE FLUSH Last Admin: 05/19/18 05:51 Dose: 10 ml Tizanidine HCl (Zanaflex) 4 mg PO QHS [facility] Last Admin: 05/18/18 21:37 Dose: 4 mg Trazodone HCl (Desyrel) 200 mg PO QHS [facility] Last Admin: 05/18/18 21:38 Dose: 200 mg Medical Necessity - Tobacco Use Smoking Status: Current every day smoker Tobacco Use: Cigarettes Assessment/Plan All Active Problems (Last Reviewed 04/25/18 @ 14:58 by Josi Garvey) Gallbladder sludge (Acute) Right upper quadrant abdominal pain (Acute) Abdominal pain (Acute) Acute pain of right foot (Acute) Acute right ankle pain (Acute) gouty tenosynovitis (Acute) Stage 2 moderate COPD by GOLD classification (Acute) Lower GI bleed (Acute) SIRS (systemic inflammatory response syndrome) (Acute) Chest pain (Acute) Pancreatitis (Resolved) The patient is a 58 year old F with a history of type 2 diabetes, stage III CKD, hypertension and morbid obesity was admitted with 1 day history of pain, swelling and painful limitation of movement of the right foot and ankle. She denies any trauma to the affected foot or ankle. Of note is that several years ago she did have a fracture of the right ankle with nonoperative treatment of the same. She denies any fever or chills. Denies any recent change to medications. She denies any family history of gout. She denies any shortness of breath or chest pain. 1. Acute gouty arthritis and tenosynovitis involving the right ankle and extensor tendons. Plain x-rays did not reveal any fractures. Arthrocentesis has been performed by ED physician. Patient has stage III CKD and so NSAIDs are contraindicated. Patient is started on high-dose IV steroids and and patient feels much improvement. Although uric acid is nonspecific and not sensitive for acute gouty arthritis but is elevated. P elevated. Risk factors for an acute gout attack in this case will be morbid obesity, stage III CKD, type 2 diabetes and patient being on diuretics. 2. Stage III CKD appears to be stable. 3. Hypertension well-controlled. 4. Type 2 diabetes. Appears well controlled. We will continue home regimen of antidiabetic medicines. 5. Morbid obesity. Microbiology Past 72 Hours 05/18/18 15:17 Fluid - Synovial (joint) Gram Stain - Preliminary 05/18/18 15:17 Fluid - Synovial (joint) Body Fluid Culture - Preliminary Laboratory Results 05/19/18 05:10: WBC 6.4, RBC 4.09 L, Hgb 12.8, Hct 40.3, MCV 98.5, MCH 31.3, MCHC 31.8 L, RDW 14.6, RDW Differential 52.1 H, Plt Count 174, MPV 10.3, Immature Gran % (Auto) 0.200, Neut % (Auto) 89.1 H, Lymph % (Auto) 9.6 L, [place] % (Auto) 0.9, Eos % (Auto) 0.0, Baso % (Auto) 0.2, Absolute Neuts (auto) 5.7, Absolute Lymphs (auto) 0.61 L, Total Counted Not Reportable 05/19/18 05:10: Sodium 145, Potassium 4.3, Chloride 109 H, Carbon Dioxide 27.0, Anion Gap 9, BUN 31 H, Creatinine 1.38 H, Estim Creat Clear Calc 36.76, Est GFR (MDRD) Af Amer 50 L, Est GFR (MDRD) Non-Af 42 L, BUN/Creatinine Ratio 22.5 H, Glucose 196 H, Calcium 8.7 05/19/18 05:40: POC Glucose 192 H 05/19/18 11:08: POC Glucose 232 H Clinical Impression(s) from Imaging Studies Foot X-Ray 05/18/18 13:29 IMPRESSION: Normal x-ray examination of the foot. Active Medications Albuterol Sulfate (Ventolin Aerosols) 2.5 mg INHALATION Q4H PRN PRN PRN Reason: SHORTNESS OF BREATH Atorvastatin Calcium (Lipitor) 10 mg PO QHS [facility] Last Admin: 05/18/18 21:37 Dose: 10 mg Calcium Carbonate (Tums) 200 mg PO PRN PRN PRN Reason: HEARTBURN Cholecalciferol (Vitamin D) 1,000 unit PO DAILY [facility] Last Admin: 05/19/18 07:56 Dose: 1,000 unit Duloxetine HCl (Cymbalta) 60 mg PO DAILY [facility] Last Admin: 05/19/18 07:56 Dose: 60 mg Enoxaparin Sodium (Lovenox) 40 mg SC DAILY@1000 [facility] Last Admin: 05/19/18 07:58 Dose: 40 mg Furosemide (Lasix) 20 mg PO BIDLX [facility] Last Admin: 05/19/18 07:56 Dose: 20 mg Gabapentin (Neurontin) 300 mg PO 0800,1200 [facility] Last Admin: 05/19/18 11:09 Dose: 300 mg Gabapentin (Neurontin) 600 mg PO QHS [facility] Last Admin: 05/18/18 21:38 Dose: 600 mg Glimepiride (Amaryl) 1 mg PO QHS [facility] Last Admin: 05/18/18 21:36 Dose: 1 mg Ipratropium [place] (Atrovent) 0.5 mg INHALATION Q6HWA.RT [facility] Last Admin: 05/19/18 11:04 Dose: Not Given Linagliptin (Tradjenta) 5 mg PO DAILY [facility] Last Admin: 05/19/18 08:03 Dose: 5 mg Lisinopril (Zestril) 5 mg PO DAILY [facility] Last Admin: 05/19/18 07:57 Dose: 5 mg Magnesium Hydroxide (Milk Of Magnesia) 30 ml PO DAILY PRN PRN PRN Reason: Constipation Methylprednisolone (Solu-Medrol) 60 mg IV Q8 [facility] Last Admin: 05/19/18 05:52 Dose: 60 mg Non-Formulary Medication (Naldemedine Tosylate [Symproic]) 0.2 mg PO BID [facility] Ondansetron HCl (Zofran Odt) 4 mg PO Q8H PRN PRN PRN Reason: NAUSEA Oxycodone HCl (Oxyir) 5 mg PO Q4H PRN PRN PRN Reason: SEVERE PAIN (6-05/15) Last Admin: 05/19/18 09:59 Dose: 5 mg Pantoprazole Sodium (Protonix) 20 mg PO DAILY [facility] Last Admin: 05/19/18 07:57 Dose: 20 mg Sodium Chloride () 5 - 30 ml IV UD PRN PRN Reason: SALINE FLUSH Last Admin: 05/19/18 05:51 Dose: 10 ml Tizanidine HCl (Zanaflex) 4 mg PO QHS [facility] Last Admin: 05/18/18 21:37 Dose: 4 mg Trazodone HCl (Desyrel) 200 mg PO QHS [facility] Last Admin: 05/18/18 21:38 Dose: 200 mg Code Visit Inpatient E&M: 07244 Subs Hosp L3
[2018-05-19 16:13] VITALS: BP 121/75; PULSE 90; RESP 18; TEMP 36.4; O2SAT 93
[2018-05-19 16:36] LABS: Bedside Glucose 206 mg/dL (70-110)
[2018-05-19 20:20] VITALS: BP 115/57; PULSE 95; RESP 16; TEMP 37; O2SAT 97
[2018-05-19] MEDS: tiZANidine HCl 2 MG Tablet 4 MG PO (20:43)
[2018-05-19] MEDS: traZODone 100 MG Tablet 200 MG PO (20:44)
[2018-05-19] MEDS: Glimepiride 1 MG Tablet PO (20:45)
[2018-05-19] MEDS: Atorvastatin Calcium 10 MG Tablet PO (20:45)
[2018-05-19] MEDS: Gabapentin 600 MG Tablet PO (20:46)
[2018-05-19 21:06] LABS: Bedside Glucose 195 mg/dL (70-110)
[2018-05-20 03:24] VITALS: BP 104/63; PULSE 82; RESP 16; TEMP 36.5; O2SAT 93
[2018-05-20] MEDS: 0.9% NaCl Peripheral Flush Adult/Peds IV (05:40)
[2018-05-20 05:46] LABS: Bedside Glucose 233 mg/dL (70-110)
[2018-05-20 06:42] LABS: Anion Gap 6 (5-15); BUN 25 mg/dL (7-18); BUN/Creat Ratio 19.1 RATIO (10-20); Calcium,Total 9.1 mg/dL (8.5-10.1); Chloride 112 mmol/L (98-107); Creatinine, Serum 1.31 mg/dL (0.55-1.02); EST Glomerular Filtration Rate 44 mL/min (>60); Est Glom Filt Rate - Afr Amer 54 mL/min (>60); Estimated Creatinine Clearance 38.72 ml/min; Glucose 199 mg/dL (74-106); Potassium 3.8 mmol/L (3.5-5.1); Sodium Level 146 mmol/L (136-145)
[2018-05-20] MEDS: Gabapentin 300 MG Capsule PO ×2 (08:54→11:38)
[2018-05-20] MEDS: DULoxetine Hcl 60 MG Capsule PO (09:01)
[2018-05-20] MEDS: Enoxaparin 40 MG/0.4 ML Syringe SC (09:01)
[2018-05-20] MEDS: Pantoprazole Sodium 20 MG Tablet PO (09:01)
[2018-05-20] MEDS: Furosemide 20 MG Tablet PO ×2 (09:01→11:38)
[2018-05-20] MEDS: Lisinopril 5 MG Tablet PO (09:01)
[2018-05-20] MEDS: LINAGLIPTIN 5 MG TABLET PO (09:05)
[2018-05-20 09:24] VITALS: BP 143/82; PULSE 96; RESP 16; TEMP 36.7; O2SAT 95
--- NOTE | 2018-05-20 10:47 | DCINST_ITS ---
- Discharge Diagnoses Current Active Problems: Current Active and Chronic Problems (Last Reviewed 04/25/18 @ 14:58 by Josi Garvey) Acute pain of right foot (Acute) Acute right ankle pain (Acute) gouty tenosynovitis (Acute) You will use the following diet at home:: Calorie/Carbohydrate Controlled (specify 1200, 1400, etc), Cardiac Discharge Activity: May Not Drive Call your doctor if you observe: Fever of 101 or Higher, Coldness, Increased Pain, Inability to have a bowel movement, Shortness of breath, Fainting spells Allergies/Adverse Reactions: Allergies No Known Allergies Allergy (Verified 05/18/18 12:39) Medications to take at Discharge Cholecalciferol (VIT D3) [Vitamin D3] 1,000 unit PO DAILY 10/08/15 Lisinopril [Zestril] 5 mg PO DAILY 10/08/15 Simvastatin [Zocor] 20 mg PO QHS 10/08/15 Tizanidine HCl 4 mg PO QHS 10/08/15 Trazodone HCl 200 mg PO QHS 08/23/16 Duloxetine Hcl [Cymbalta] 60 mg PO DAILY 10/15/17 Linagliptin [Tradjenta] 5 mg PO DAILY 10/15/17 albuterol sulfate HFA 90 mcg/actuation aerosol inhaler 2 puff INHALATION Q6H PRN #1 device 11/08/17 Ondansetron [Zofran Odt] 4 mg PO Q8H PRN PRN #10 tab 11/12/17 furosemide 20 mg tablet 20 mg PO BID tab 11/15/17 Gabapentin [Neurontin] 300 mg PO 0800,1200 11/28/17 Omeprazole Magnesium [Prilosec Otc] 20 mg PO DAILY 11/28/17 Umeclidinium Brm/Vilanterol Tr [Anoro Ellipta 62.5-25 Mcg INH] 1 inh INHALATION Q24H 11/28/17 Oxycodone HCl/Acetaminophen [Percocet 5-325] 1 - 2 tab PO Q4H PRN PRN 5 Days #30 tab 04/17/18 Gabapentin [Neurontin] 600 mg PO QHS 04/20/18 Naldemedine Tosylate [Symproic] 0.2 mg PO BID 04/20/18 Glimepiride 1 mg PO QHS 05/18/18 Allopurinol 100 mg PO DAILY #30 tab 05/20/18 Prednisone 10 mg PO UD #50 tab 05/20/18 The following prescriptions were given: Allopurinol 100 mg PO DAILY #30 tab Prednisone 10 mg PO UD #50 tab Primary Care Physician: Hua Mosher MD [Primary Care Provider] - Please follow up with your Primary Care Physician in: in 1-2 weeks FOR Gout Test Results: Test results from this visit will be discussed in further detail at your follow- up appointment, if applicable.
--- NOTE | 2018-05-20 11:35 | CASEMGMT ---
RN HALLIE Face to Face with patient for initial transition planning/care coordination assessment. RN CM introduced self and role at [facility]. Patient sitting on edge of bed, alert and oriented, at bedside. Patient willing to participate in assessment and is able to answer all questions appropriately. Care providers, pharmacy, and demographics verified. Patient wishes to discharge home, denies need for home health at this time. Patient states he has no further needs or concerns at this time. CM to follow for discharge planning needs that may arise. PCP: Nomi Berkowitz [facility]acy: [facility] Insurance: [employer] Prescription Benefit: [employer] Living Will/HPOA: None, declined information LNOK: Living Arrangements: Patient lives with in 1 story home with ramp to enter home. Patient is independent Transportation: self/ DME/HHC: CPAP. Patient is part of [facility] Disposition Plan: Patient to discharge home with family support and follow-up plans in place. Cecile RUTHERFORD, RN, CM
[2018-05-20 11:51] LABS: Bedside Glucose 253 mg/dL (70-110)
--- NOTE | 2018-05-20 12:53 | PCM.DC.SUM ---
Discharge Date and Diagnosis Date of Admission: 05/18/18 Date of Discharge: 05/20/18 - Primary Discharge Diagnosis Acute gouty arthritis with tenosynovitis of right ankle on extensive testing, new diagnosis - Secondary Discharge Diagnosis Chronic Problems (Last Reviewed 04/25/18 @ 14:58 by Josi Garvey) Peripheral neuropathy (Chronic) Constipation (Chronic) Diverticulosis (Chronic) Morbid obesity with BMI of 40.0-44.9, adult (Chronic) Gastro-esophageal reflux disease without esophagitis (Chronic) Epigastric pain (Chronic) Ischemic colitis (Chronic) History of repair of hiatal hernia (Chronic) Cervical vertebral fusion (Chronic) Cervical radiculitis (Chronic) Fibromyalgia (Chronic) COPD (chronic obstructive pulmonary disease) (Chronic) Anxiety (Chronic) Hyperlipidemia (Chronic) Tobacco use (Chronic) on chantix Hypertension (Chronic) Diabetes mellitus, type II (Chronic) Chronic back pain (Chronic) CKD (chronic kidney disease) stage 3, GFR 30-59 ml/min (Chronic) Hospital Course and Treatment Operations: None Summary of Care Provided: [] The patient is a 58 year old F with a history of type 2 diabetes, stage III CKD, hypertension and morbid obesity was admitted with 1 day history of pain, swelling and painful limitation of movement of the right foot and ankle. She denies any trauma to the affected foot or ankle. Of note is that several years ago she did have a fracture of the right ankle with nonoperative treatment of the same. She denies any fever or chills. Denies any recent change to medications. She denies any family history of gout. She denies any shortness of breath or chest pain. 1. Acute gouty arthritis and tenosynovitis involving the right ankle and extensor tendons. Plain x-rays did not reveal any fractures. Arthrocentesis has been performed by ED physician. Patient has stage III CKD and so NSAIDs are contraindicated. Patient is started on high-dose IV steroids and and patient feels much improvement. Transition to prednisone although uric acid is nonspecific and not sensitive for acute gouty arthritis but is elevated. CRP elevated. Synovial fluid culture negative for bacterial growth for more than 48 hours. Risk factors for an acute gout attack in this case will be morbid obesity, stage III CKD, type 2 diabetes and patient being on diuretics. Patient right ankle swelling is much improved. Discharged on tapering dose of prednisone and allopurinol. 2. Stage III CKD appears to be stable. 3. Hypertension well-controlled. 4. Type 2 diabetes with hyperglycemia secondary to steroid. We will continue home regimen of antidiabetic medicines. Currently on prednisone 5. Morbid obesity. Discharge medication reconciliation done. Discharge follow-up instructions completed. Total time spent, exact 35 minutes on discharge meds reconciliation, examination, review of imaging and blood test and discussion with the patient on follow-up instructions. Microbiology Past 72 Hours 05/18/18 15:17 Fluid - Synovial (joint) Gram Stain - Final 05/18/18 15:17 Fluid - Synovial (joint) Body Fluid Culture - Preliminary 05/18/18 15:17 Fluid - Synovial (joint) Anaerobic Culture - Preliminary No growth in 48 hours. Laboratory Results 05/19/18 16:18: POC Glucose 206 H 05/19/18 20:41: POC Glucose 195 H 05/20/18 05:37: POC Glucose 233 H 05/20/18 05:52: Sodium 146 H, Potassium 3.8, Chloride 112 H, Carbon Dioxide 28.0, Anion Gap 6, BUN 25 H, Creatinine 1.31 H, Estim Creat Clear Calc 38.72, Est GFR (MDRD) Af Amer 54 L, Est GFR (MDRD) Non-Af 44 L, BUN/Creatinine Ratio 19.1, Glucose 199 H, Calcium 9.1 05/20/18 11:33: POC Glucose 253 H Objective: General: Alert, Oriented x3, Cooperative HEENT: Atraumatic, PERRLA, EOMI, Normocephalic Neck: Supple, No JVD, Negative Carotid Bruits Lungs: Clear to auscultation, Normal air movement Cardiovascular: Regular rate, No murmurs Abdomen: Bowel Sounds Present, Soft, Non Tender, Non-Distended Extremities: No edema, Capillary Refill Less than 3 Seconds Skin: No rashes, No breakdown Musculoskeletal: Arthritic Changes. Tenderness of right ankle has almost resolved. Swelling also almost resolved. No erythema. Neurological: Cranial nerves II-XII grossly intact Psych/Mental Status: Normal Affect, Appropriate - Physical Exam Vital Signs Temp Pulse Resp BP Pulse Ox 98.0 F 96 16 143/82 H 95 05/20/18 09:24 05/20/18 09:24 05/20/18 09:24 05/20/18 09:24 05/20/18 09:24 Oxygen Flow Rate (L/min) 2 Oxygen Delivery Method Room Air Weight: 211 lb 3.245 oz Body Mass Index (BMI) 37.4 Finger Stick Blood Glucose 143 Intake and Output for Last 24 Hours 05/18/18 05/19/18 05/20/18 23:59 23:59 23:59 Intake Total 1602 / 1602 131 / 131 Balance 1602 / 1602 131 / 131 Microbiology Past 72 Hours 05/18/18 15:17 Gram Stain - Final Fluid - Synovial (joint) Body Fluid Culture - Preliminary Anaerobic Culture - Preliminary No growth in 48 hours. Laboratory Tests Past 24 Hrs 05/20/18 05:52 Sodium 146 H Potassium 3.8 Chloride 112 H Carbon Dioxide 28.0 Anion Gap 6 BUN 25 H Creatinine 1.31 H Estim Creat Clear Calc 38.72 Est GFR (MDRD) Af Amer 54 L Est GFR (MDRD) Non-Af 44 L BUN/Creatinine Ratio 19.1 Glucose 199 H Calcium 9.1 POC Glucose 05/20/18 05/20/18 05/19/18 11:33 05:37 20:41 POC Glucose 253 H 233 H 195 H 05/19/18 16:18 POC Glucose 206 H Discharge Activity: May Not Drive Call your doctor if you observe: Fever of 101 or Higher, Coldness, Increased Pain, Inability to have a bowel movement, Shortness of breath, Fainting spells Home Medications: Medications to take at Discharge Cholecalciferol (VIT D3) [Vitamin D3] 1,000 unit PO DAILY 10/08/15 Lisinopril [Zestril] 5 mg PO DAILY 10/08/15 Simvastatin [Zocor] 20 mg PO QHS 10/08/15 Tizanidine HCl 4 mg PO QHS 10/08/15 Trazodone HCl 200 mg PO QHS 08/23/16 Duloxetine Hcl [Cymbalta] 60 mg PO DAILY 10/15/17 Linagliptin [Tradjenta] 5 mg PO DAILY 10/15/17 albuterol sulfate HFA 90 mcg/actuation aerosol inhaler 2 puff INHALATION Q6H PRN #1 device 11/08/17 Ondansetron [Zofran Odt] 4 mg PO Q8H PRN PRN #10 tab 11/12/17 furosemide 20 mg tablet 20 mg PO BID tab 11/15/17 Gabapentin [Neurontin] 300 mg PO 0800,1200 11/28/17 Omeprazole Magnesium [Prilosec Otc] 20 mg PO DAILY 11/28/17 Umeclidinium Brm/Vilanterol Tr [Anoro Ellipta 62.5-25 Mcg INH] 1 inh INHALATION Q24H 11/28/17 Oxycodone HCl/Acetaminophen [Percocet 5-325] 1 - 2 tab PO Q4H PRN PRN 5 Days #30 tab 04/17/18 Gabapentin [Neurontin] 600 mg PO QHS 04/20/18 Naldemedine Tosylate [Symproic] 0.2 mg PO BID 04/20/18 Glimepiride 1 mg PO QHS 05/18/18 Allopurinol 100 mg PO DAILY #30 tab 05/20/18 Prednisone 10 mg PO UD #50 tab 05/20/18 Following Prescrptions Were Given to Patient: Allopurinol 100 mg PO DAILY #30 tab Prednisone 10 mg PO UD #50 tab Primary Care Physician: Hua Mosher MD [Primary Care Provider] - Please follow up with your Primary Care Physician in: in 1-2 weeks FOR Gout Medical Necessity - Tobacco Use Smoking Status: Current every day smoker Tobacco Use: Cigarettes Meaningful Use Info Meaningful Use Diagnoses (Choose all that apply): None applicable Code Visit Inpatient E&M: 58420 Disch Hosp
[2018-05-20 14:17] LABS: Pathologist Review Reviewed
--- NOTE | 2018-05-21 16:01 | CASEMGMT ---
RN CM Discharge Follow-up Phone Call: CARY: Lorie Strata: 4 Call Date: 05/21/18 Discharge Date: 05/20/18 Time of Call: 1600 Duration: 1 min Admitting Diagnosis: Acute gout tenosynovitis on right foot RN HALLIE attempted to complete follow-up phone call after recent hospitaliztion. No answer, voice message left with return contact information.
== END 2018-05-20 11:55 | disposition home or self-care (01) | DRG 554 ==
LOC: ED 17:30 → MS3 18:28
PROVIDERS: Internal Medicine; Admitting Provider Internal Medicine; Emergency Provider Emergency Medicine; Family Provider Family Medicine; PCP Family Medicine; Visit Provider Internal Medicine
DX: M10.9 Gout, unspecified (principal); I12.9 Hypertensive chronic kidney disease with stage 1 through stage 4 chronic kidney disease, or unspecified chronic kidney disease; E11.22 Type 2 diabetes mellitus with diabetic chronic kidney disease; N18.3 Chronic kidney disease, stage 3 (moderate); E66.01 Morbid (severe) obesity due to excess calories; Z68.37 Body mass index [BMI] 37.0-37.9, adult; E11.42 Type 2 diabetes mellitus with diabetic polyneuropathy; K21.9 Gastro-esophageal reflux disease without esophagitis; E78.5 Hyperlipidemia, unspecified; Z79.84 Long term (current) use of oral hypoglycemic drugs
CPT/HCPCS: 36415; 73630; 80048; 82962; 84550; 85025; 85652; 86140; 87070; 87075; 87205; 89060; 99282; 99406; A4216

== ENCOUNTER → 2018-05-27 11:20 | Outpatient (CLI) | payer OTHER, SELFPAY ==
[2018-05-27 13:52] LABS: Absolute Lymphocyte Count 1.01 X10^3/ul (0.83-4.51); Absolute Neutrophil Count 11.9 X10^3/uL (2.0-7.7); Basophil# 0.01 X10^3/uL; Basophil% 0.1 % (0-1); Eosinophil# 0.02 X10^3/uL; Eosinophils% 0.1 % (0-5); Hematocrit 44.5 % (37-47); Hemoglobin 13.9 g/dl (12.0-15.0); Lymphocyte # 1.01 X10^3/ul (4.0); Lymphocyte % 7.3 % (19-41); Mean Corp Hgb Conc 31.2 g/gl (32-36); Mean Corpuscular Hgb 30.5 pg (27.0-32.0); Mean Corpuscular Volume 97.8 fL (81-99); Mean Platelet Vol. 10.2 fl (6.2-12.0); Monocyte# 0.78 X10^3/uL; Monocyte% 5.6 % (0-10); Neutrophil # 11.87 X10^3/uL (2.7-7.7); Neutrophil % 85.7 % (47-70); Platelet Count 273 K/mm3 (150-450); RBC Distribution Width CV 15.1 % (11.6-14.6); RBC Distribution Width SD 53.5 fl (35.1-43.9); Red Blood Count 4.55 M/mm3 (4.2-5.4); White Blood Count 13.9 K/mm3 (4.4-11.0)
[2018-05-27 13:54] LABS: International Normalized Ratio 0.9; Prothrombin Time (Protime)PT. 12.3 SECONDS (11.7-14.9)
[2018-05-27 13:55] LABS: Partial Thromboplast Time 21.3 Seconds (24.1-36.2)
[2018-05-27 13:56] LABS: POSITIVE COUNT NO; POSITIVE DIFFERENTIAL NO; POSITIVE MORPHOLOGY NO
[2018-05-27 14:06] LABS: Hemoglobin A1c 7.1 % (4.2-6.3)
[2018-05-27 14:07] LABS: Vitamin B12 363 pg/mL (211-911); Vitamin D,25 Hydroxy 67.5 ng/mL (29.95-100.01)
[2018-05-27 14:08] LABS: ALB/GLOB Ratio 0.9 RATIO (0.9-2.4); AST(SGOT) 27 U/L (15-37); Alanine Aminotransfer ALT/SGPT 31 U/L (13-56); Albumin, Serum 3.4 g/dL (3.2-5.0); Alkaline Phosphatase 78 U/L (45-117); Anion Gap 9 (5-15); BUN 29 mg/dL (7-18); BUN/Creat Ratio 20.6 RATIO (10-20); Calcium,Total 8.9 mg/dL (8.5-10.1); Chloride 104 mmol/L (98-107); Cholesterol 142 mg/dL (200); Creatinine, Serum 1.41 mg/dL (0.55-1.02); EST Glomerular Filtration Rate 41 mL/min (>60); Est Glom Filt Rate - Afr Amer 49 mL/min (>60); Ferritin 53 ng/mL (8-252); Globulin 3.7 g/dL (2.2-4.2); Glucose 141 mg/dL (74-106); High Density Lipoprotein 64 mg/dL; Iron 66 ug/dL (50-170); Iron Binding Capacity,Total 286 ug/dL (250-450); PERCENT IRON SATURATION 23.1 % (15.0-55.0); Potassium 3.4 mmol/L (3.5-5.1); Protein, Total 7.1 g/dL (6.4-8.2); Sodium Level 145 mmol/L (136-145); T4 Free Direct 1.08 ng/dL (0.76-1.46); Thyroid Stim Hormone (TSH) 0.38 uIU/mL (0.358-3.74); Triglycerides 83 mg/dL; Very Low Density Lipoprotein 17 mg/dL (5-40)
== END ==
PROVIDERS: Family Provider Family Medicine; PCP Family Medicine
DX: E61.1 Iron deficiency (principal); E78.5 Hyperlipidemia, unspecified; R73.9 Hyperglycemia, unspecified; E53.8 Deficiency of other specified B group vitamins; E07.9 Disorder of thyroid, unspecified; R79.1 Abnormal coagulation profile; E51.9 Thiamine deficiency, unspecified
CPT/HCPCS: 36415; 80053; 80061; 82306; 82607; 82728; 83036; 83540; 83550; 84425; 84439; 84443; 85025; 85610; 85730

== ENCOUNTER 2018-07-19 19:50 | Emergency (ER) | payer OTHER, SELFPAY ==
[2018-07-19 19:52] VITALS: BP 133/85; PULSE 118; RESP 19; TEMP 36.7; O2SAT 100; BMI 37.9
[2018-07-19] MEDS: HYDROcodone Bitartrate/Apap 5/325 Tablet PO (20:27)
--- NOTE | 2018-07-19 20:37 | RAD_ITS ---
STUDY: X-RAY - RIGHT TIBIA AND FIBULA REASON FOR EXAM: Female, 58 years old. Right lower leg pain after falling TECHNIQUE: 2 view(s) of the tibia and fibula were obtained. COMPARISON: None. FINDINGS: Normal visualized tibia. Normal visualized fibula. There is no demonstrated acute fracture. The soft tissue structures are unremarkable. RAD/Tibia & Fibula 2 Views IMPRESSION: Normal x-ray examination of the tibia and fibula. Electronically Signed: Tawana Hanks MD at 20:57 EST , Service support ,
--- NOTE | 2018-07-19 21:04 | ED.DCSUM_ITS ---
- ER Visit Summary Date of Service: 07/19/18 Chief Complaint: Right ankle injury History of Present Illness: The patient is a 58 F who rolled her right ankle last night walking across the yard. She had increasing pain today. She has difficulty with weightbearing. Past history significant for diabetes with peripheral neuropathy, hypertension, acute COPD, kidney disease, questionable right ankle/foot gout. Physical Examination: Vital signs remarkable for tachycardia with a heart rate of 118. Patient sitting upright in bed. She is in no acute distress but does appear uncomfortable. Heart is regular rate and rhythm at the time of my exam. Lung sounds clear. Abdomen soft nontender. Right lower extremity examination reveals tenderness to palpation and edema around the right ankle, lateral more so than medial. There is mild tenderness of the proximal fibula. She can flex and extend at the ankle, but has significant pain with doing so. She has palpable distal pulses and good cap refill distally. Test Results: Right tib-fib x-rays were obtained and unremarkable. Emergency Department Course and Treatment: Patient was given a dose of [place] here. On repeat evaluation test results are discussed with patient and family at bedside. She will be given a walking boot and crutches if needed. She is given a prescription for [place]. Treatment Plan: [] Disposition: Discharge Impression: Right ankle sprain This note was generated with [employer] dictation software. It may contain incorrect words, spelling, and punctuation that were not noted in review of the chart prior to signing ED Disposition - Plan for ED Patient: Chief Complaint: Lower Extremity Injury Referrals: Hua Mosher MD [Primary Care Provider] -
--- NOTE | 2018-07-19 21:04 | ED.DEP ---
ED Disposition - Plan for ED Patient: Disposition: Home or Assisted Living Chief Complaint: Lower Extremity Injury Instructions: ED Sprain Ankle W X Ray Prescriptions: Hydrocodone Bitart/Apap 5-325 [[place] 5MG-325MG] 1 tablet PO Q6H PRN PRN 3 Days #10 tablet PRN Reason: Pain Referrals: Hua Mosher MD [Primary Care Provider] - 1 Week
== END 2018-07-19 21:25 | disposition home or self-care (01) ==
PROVIDERS: Emergency Provider Emergency Medicine; Family Provider Family Medicine; PCP Family Medicine
DX: S93.401A Sprain of unspecified ligament of right ankle, initial encounter (principal); X50.1XXA Overexertion from prolonged static or awkward postures, initial encounter; Y93.01 Activity, walking, marching and hiking; Y92.9 Unspecified place or not applicable; E11.42 Type 2 diabetes mellitus with diabetic polyneuropathy; J44.9 Chronic obstructive pulmonary disease, unspecified; I12.9 Hypertensive chronic kidney disease with stage 1 through stage 4 chronic kidney disease, or unspecified chronic kidney disease; E11.22 Type 2 diabetes mellitus with diabetic chronic kidney disease; N18.3 Chronic kidney disease, stage 3 (moderate); Z79.84 Long term (current) use of oral hypoglycemic drugs; Z79.899 Other long term (current) drug therapy
CPT/HCPCS: 73590; 99283

== ENCOUNTER → 2018-07-23 16:39 | Outpatient (CLI) | payer OTHER, SELFPAY ==
[2018-07-19 19:52] VITALS: BMI 37.9
--- NOTE | 2018-07-23 16:42 | RAD_ITS ---
STUDY: X-RAY - RIGHT FOOT CLINICAL: Female, 58 years old. Pain TECHNIQUE: 3 view(s) of the foot. COMPARISON: None. FINDINGS: There is soft tissue swelling of the ankle and foot especially dorsally but no acute fractures or dislocations are seen. There is no ankle joint effusion.. RAD/Foot min 3 Views IMPRESSION: Swelling over the foot. No fracture Electronically Signed: Deon Mazariegos MD at 6:47 EST Tel , Service support ,
--- NOTE | 2018-07-23 16:42 | RAD_ITS ---
STUDY: X-RAY - RIGHT ANKLE REASON FOR EXAM: Female, 58 years old. Rolled ankle 5 days ago. Continued swelling and pain. TECHNIQUE: 3 view(s) of the ankle. COMPARISON: None. FINDINGS: Normal visualized distal tibia and fibula. Normal medial and lateral malleoli. Normal tibiotalar articulation and ankle mortise. Normal visualized talus and calcaneus. The visualized subtalar, talonavicular, calcaneocuboid and tarsal articulations are normal. Diffuse soft tissue swelling over the lower leg, ankle and hindfoot suggesting sprain RAD/Ankle min 3 Views IMPRESSION: Soft tissue swelling without visualized fracture or dislocation. Electronically Signed: Hossein Sosa DO at 23:13 EST Tel [phone], Service support ,
== END ==
PROVIDERS: Family Provider Family Medicine; PCP Family Medicine; Referring Provider Family Medicine; Visit Provider Family Medicine
DX: M25.571 Pain in right ankle and joints of right foot (principal)
CPT/HCPCS: 73610; 73630

== ENCOUNTER 2018-07-25 10:29 | Emergency (ER) | payer OTHER, SELFPAY ==
[2018-07-25 10:30] VITALS: BP 121/73; PULSE 117; RESP 17; TEMP 36.8; O2SAT 95; BMI 37.9
--- NOTE | 2018-07-25 11:03 | ED.VISSUMM ---
- ER Visit Summary Date of Service: 07/25/18 Chief Complaint: [] Bilateral ankle pain for days recent injury to right ankle History of Present Illness: The patient is a 58 F [] of gout joint pain, renal insufficiency, diabetes, presents complaining of bilateral ankle pain [place] about a week ago she twisted her right ankle she was seen she had x-rays done follow-up with family doctor had additional x-rays done both sets x-rays are unremarkable the right ankle pain has persisted, she now also has left ankle pain consistent with her gout in fact the both ankles are causing discomfort is very consistent with her gout she also reports that just prior to the original right ankle injury she had stopped prednisone burst therapy that was prescribed to control her gout, because of renal insufficiency and diabetes she is not eligible to receive nonsteroidals or other gout medicines, she is taking allopurinol, she had no injury to the left lower extremity she has had no fever no cough history of DVT peripheral vascular disease otherwise her health has been stable Physical Examination: [] 140/80 afebrile General, no distress resting comfortably HEENT is generally unremarkable The neck is supple no adenopathy Cardiovascular, regular rate and rhythm Lungs, clear bilateral Abdomen, soft nontender Extremities, lower extremity there is very mild swelling and discomfort diffusely over the ankle and the foot dorsi and plantar flexion is present because of discomfort there is no signs of joint infection she is able to move her hips and her knees and her tib-fib skin is intact pulses cap refill and sensation normal, the left lower extremity exam is very similar with some vague discomfort to the ankle neurovascular function entirely normal Neurologic, awake alert answering questions appropriately moving all 4 extremities Test Results: [] Emergency Department Course and Treatment: [] I had a long conversation with her we were going to defer x-rays of the left ankle as is been no injury, she again is quite sure this is related to gout the prednisone before helped him explained to her persistent steroids could impact her diabetes and other health conditions she understands, we spoke with Dr. Thacker her attending physician, given her renal insufficiency we will provide her with Kenalog 40 mg IM, to avoid nonsteroidals, additional Percocet medication she will follow-up with the office and return for change in symptoms, patient does understand that the steroids alter her normal blood sugars to a higher level and she will keep an eye on them and manage her diabetes using her standard protocol Treatment Plan: [] Disposition: [] Home stable Impression: [] Bilateral ankle pain suspect related to gout, history of diabetes, history of renal insufficiency This note was generated with [employer] dictation software. It may contain incorrect words, spelling, and punctuation that were not noted in review of the chart prior to signing ED Disposition - Plan for ED Patient: Chief Complaint: Lower Extremity Injury Referrals: Hua Mosher MD [Primary Care Provider] -
--- NOTE | 2018-07-25 11:06 | ED.DEP ---
ED Disposition - Plan for ED Patient: Chief Complaint: Lower Extremity Injury Instructions: ED Arthritis Gout Prescriptions: Oxycodone HCl/Acetaminophen [Percocet 5/325] 1 tab PO Q4H PRN PRN #10 tab PRN Reason: Pain Referrals: Hua Mosher MD [Primary Care Provider] -
--- NOTE | 2018-07-25 11:53 | ED.RN ---
[facility] CALLED FOR NEAL
[2018-07-25] MEDS: HYDROcodone Bitartrate/Apap 5/325 Tablet PO (12:03)
[2018-07-25] MEDS: Triamcinolone Acetonide 40 MG/ML Vial IM (12:04)
== END 2018-07-25 13:17 | disposition home or self-care (01) ==
PROVIDERS: Emergency Provider Emergency Medicine; Family Provider Family Medicine; PCP Family Medicine
DX: M25.572 Pain in left ankle and joints of left foot (principal); M25.571 Pain in right ankle and joints of right foot; M10.9 Gout, unspecified; E11.9 Type 2 diabetes mellitus without complications; N28.9 Disorder of kidney and ureter, unspecified; S99.911A Unspecified injury of right ankle, initial encounter; X50.1XXA Overexertion from prolonged static or awkward postures, initial encounter; Y93.9 Activity, unspecified; Y92.9 Unspecified place or not applicable; Z79.84 Long term (current) use of oral hypoglycemic drugs; Z79.899 Other long term (current) drug therapy
CPT/HCPCS: 96372; 99282

== ENCOUNTER 2018-07-30 22:20 | Observation (INO) | payer OTHER, SELFPAY ==
[2018-07-30 22:21] VITALS: BP 163/101; PULSE 93; RESP 19; TEMP 36.9; O2SAT 96; BMI 40.1
--- NOTE | 2018-07-30 22:36 | EKG12_ITS ---
Test Reason : CP Blood Pressure : / mmHG Vent. Rate : 096 BPM Atrial Rate : 096 BPM P-R Int : 160 ms QRS Dur : 094 ms QT Int : 374 ms P-R-T Axes : 064 043 054 degrees QTc Int : 472 ms Normal sinus rhythm Normal ECG Confirmed by LE BE, BON ([id number]), sticker on REINIER PENDLETON ([id number]) on 08/02/2018 3:21:50 PM Referred By: Hua Mosher Confirmed By:BON LUJAN MD
[2018-07-30 22:42] LABS: Absolute Lymphocyte Count 1.51 X10^3/ul (0.83-4.51); Hematocrit 38.3 % (37-47); Hemoglobin 12.2 g/dl (12.0-15.0); Lymphocyte # 1.51 X10^3/ul (4.0); Lymphocyte % 16.3 % (19-41); Mean Corp Hgb Conc 31.9 g/gl (32-36); Mean Corpuscular Hgb 31.2 pg (27.0-32.0); Mean Platelet Vol. 9.3 fl (6.2-12.0); Monocyte# 0.69 X10^3/uL; Monocyte% 7.5 % (0-10); Neutrophil # 7.02 X10^3/uL (2.7-7.7); Neutrophil % 75.8 % (47-70); Platelet Count 294 K/mm3 (150-450); RBC Distribution Width SD 57.2 fl (35.1-43.9); Red Blood Count 3.91 M/mm3 (4.2-5.4); White Blood Count 9.3 K/mm3 (4.4-11.0)
[2018-07-30 22:43] LABS: POSITIVE COUNT NO; POSITIVE DIFFERENTIAL NO; POSITIVE MORPHOLOGY NO
[2018-07-30 22:50] VITALS: O2SAT 94
--- NOTE | 2018-07-30 22:50 | ED.VISSUMM ---
- ER Visit Summary Date of Service: 07/30/18 Chief Complaint: Chest pain History of Present Illness: The patient is a 58 F who is lying in bed tonight when she developed rather quick onset of chest pain around 9:30 PM. She states it radiated to her neck and her left shoulder and she did feel short of breath. After sitting upright the pain did somewhat improve. Past history significant for hypertension, diabetes, high cholesterol, and smoking. She had a stress test in October of this year that was unremarkable. [place] any known cardiac disease. Physical Examination: Blood pressure is 163/101, temperature 98.4, heart rate 93, respiratory rate 19, pulse ox 96% on room air. Patient sitting upright in bed no acute distress. She speaking full sentences. Head neck examination is unremarkable other than mild right conjunctival injection. Family does state she had some yellow drainage earlier. No significant eye pain but it does feel irritated. Heart is regular rate and rhythm. Lung sounds are clear. She does have reproducible anterior chest wall tenderness. There is no crepitus. Abdomen is soft and nontender. Lower extremity examination reveals no significant edema. She has strong and equal distal pulses. Test Results: EKG is sinus at 96 with no sign of acute ischemia. Portal chest x-ray shows chronic changes with no infiltrate. CBC is normal. Chemistry studies reveal BUN of 20 and a creatinine of 1.33. Troponin is less than 0.015. Emergency Department Course and Treatment: Patient was given aspirin and a small dose of morphine along with Zofran. On repeat evaluation patient states her pain is improved. She will be given gentamicin eyedrops for her conjunctivitis and admitted for further cardiac workup. Treatment Plan: [] Disposition: Admit Impression: 1. Chest pain 2. Right eye conjunctivitis This note was generated with [employer] dictation software. It may contain incorrect words, spelling, and punctuation that were not noted in review of the chart prior to signing ED Disposition - Plan for ED Patient: Chief Complaint: Chest Pain Referrals: Hua Mosher MD [Primary Care Provider] -
[2018-07-30 22:58] LABS: Anion Gap 6 (5-15); BUN 20 mg/dL (7-18); Calcium,Total 8.7 mg/dL (8.5-10.1); Chloride 105 mmol/L (98-107); Creatinine, Serum 1.33 mg/dL (0.55-1.02); EST Glomerular Filtration Rate 44 mL/min (>60); Est Glom Filt Rate - Afr Amer 53 mL/min (>60); Estimated Creatinine Clearance 38.14 ml/min; Glucose 136 mg/dL (74-106); Potassium 3.7 mmol/L (3.5-5.1); Sodium Level 144 mmol/L (136-145)
[2018-07-30] MEDS: 0.9% Normal Saline 1,000 ML 150 ML IV (23:00)
[2018-07-30] MEDS: Aspirin 81 MG TAB.CHEW 324 MG PO (23:00)
--- NOTE | 2018-07-30 23:00 | RAD_ITS ---
STUDY: X-RAY CHEST REASON FOR EXAM: Female, 58 years old. Stabbing chest pain. TECHNIQUE: AP portable chest. COMPARISON: April 20, 2018. FINDINGS: The lungs are clear and expanded. There is no demonstrated pleural abnormality. No pneumothorax. Normal size heart. Normal mediastinum and praveen. Normal visualized pulmonary arteries. There is atherosclerotic calcification of the aortic arch. Normal visualized thoracic spine. Normal visualized ribs, clavicles, and shoulders. Postoperative changes of lower cervical fusion. There is no demonstrated abnormality of the visualized soft tissue structures of the upper abdomen. RAD/Chest 1 View (Portable) IMPRESSION: Stable chest, no acute cardiopulmonary disease. Electronically Signed: Lance Garcia MD at 23:38 EST , Service support ,
[2018-07-30] MEDS: Morphine 4 MG/ML Syringe 2 MG IV (23:01)
[2018-07-30] MEDS: Ondansetron 4 MG/2 ML Vial IV (23:01)
[2018-07-30 23:29] VITALS: PULSE 93; RESP 12; O2SAT 93
[2018-07-30] MEDS: Morphine 2 MG/ML Syringe IV (23:39)
--- NOTE | 2018-07-30 23:41 | HP.PCM_ITS ---
Problem List (1) Chest pain Status: Acute (2) gouty tenosynovitis Status: Chronic (3) Stage 2 moderate COPD by GOLD classification Status: Chronic Comment: FEV1 66% of predicted History of Present Illness Date of Admission: 07/30/18 Chief Complaint: CHEST PAIN The patient is a 58 year old F with a significant history of tobacco abuse; COPD;gout;hypertension; diabetes; hyperlipidemia; fibromyalgia; CKD stage III; chronic back pain who presented with a continuous substernal sharp and stabbing chest pain that started few hours before her admission. Her pain radiates to under her left breast, her left neck and the left back. Her pain started gradually while lying in her bed. She reports nausea without vomiting. Pain is continuous and constant but with some episodic spikes. She denies any alleviating or aggravating factors to her pain. She denies diaphoresis. She reports increased belching on the same day of admission by stating that her chest pain is unrelated to food or to belching. She reported that in summer of this year she had a negative stress test. The stress test was done as part of a pre-operative procedure. Patient reported that his father had heart attack in his late 60s. Also patient reported that on the day of admission she woke up and she had red eye with itching. Past Medical History Past Medical History (Chronic Problems): Chronic Problems (Last Reviewed 07/31/18 @ 09:07 by Abdelrahman Adam MD) Peripheral neuropathy (Chronic) gouty tenosynovitis (Chronic) Stage 2 moderate COPD by GOLD classification (Chronic) FEV1 66% of predicted Constipation (Chronic) Diverticulosis (Chronic) Morbid obesity with BMI of 40.0-44.9, adult (Chronic) Gastro-esophageal reflux disease without esophagitis (Chronic) Epigastric pain (Chronic) Ischemic colitis (Chronic) History of repair of hiatal hernia (Chronic) Cervical vertebral fusion (Chronic) Cervical radiculitis (Chronic) Fibromyalgia (Chronic) COPD (chronic obstructive pulmonary disease) (Chronic) Anxiety (Chronic) Hyperlipidemia (Chronic) Tobacco use (Chronic) on chantix Hypertension (Chronic) Diabetes mellitus, type II (Chronic) Chronic back pain (Chronic) CKD (chronic kidney disease) stage 3, GFR 30-59 ml/min (Chronic) Medical History: Medical History (Last Reviewed 07/31/18 @ 09:07 by Abdelrahman Adam MD) Cervical radiculitis (Chronic) M54.12 Fibromyalgia (Chronic) M79.7 Chest pain (Acute) R07.9 COPD (chronic obstructive pulmonary disease) (Chronic) J44.9 Anxiety (Chronic) F41.9 Hyperlipidemia (Chronic) E78.5 Tobacco use (Chronic) Z72.0 on chantix Hypertension (Chronic) I10 Diabetes mellitus, type II (Chronic) E11.9 Chronic back pain (Chronic) M54.9, G89.29 CKD (chronic kidney disease) stage 3, GFR 30-59 ml/min (Chronic) N18.3 Allergies No Known Allergies Allergy (Verified 07/30/18 22:21) Home Medications: Ambulatory Orders Medication Instructions Recorded RX: Cholecalciferol (VIT D3) 1,000 unit PO DAILY 10/08/15 [Vitamin D3] RX: Lisinopril [Zestril] 5 mg PO DAILY 10/08/15 RX: Simvastatin [Zocor] 20 mg PO QHS 10/08/15 RX: Tizanidine HCl 4 mg PO QHS 10/08/15 RX: Trazodone HCl 200 mg PO QHS 08/23/16 RX: Linagliptin [Tradjenta] 5 mg PO DAILY 10/15/17 furosemide 20 mg tablet 20 mg PO BID tab 11/15/17 RX: Gabapentin [Neurontin] 300 mg PO 0800,1200 11/28/17 RX: Omeprazole Magnesium [Prilosec 20 mg PO DAILY 11/28/17 Otc] RX: Oxycodone HCl/Acetaminophen 1 - 2 tab PO Q4H PRN PRN 5 Days 04/17/18 [Percocet 5-325] #30 tab RX: Gabapentin [Neurontin] 600 mg PO QHS 04/20/18 RX: Glimepiride 1 mg PO QHS 05/18/18 RX: Prednisone 10 mg PO UD #50 tab 05/20/18 albuterol sulfate HFA 90 2 puff INHALATION Q6H PRN #1 device 06/18/18 mcg/actuation aerosol inhaler duloxetine 60 mg capsule,delayed 90 mg PO DAILY cap 06/18/18 release umeclidinium 62.5 mcg-vilanterol 1 inh INHALATION Q24H #1 device 06/18/18 25 mcg/actuation powdr for inhalation RX: Allopurinol 100 mg PO BID 12/25/18 Surgical History: Surgical History (Last Reviewed 07/31/18 @ 09:07 by Abdelrahman Adam MD) History of repair of hiatal hernia (Chronic) Z98.890, Z87.19 Cervical vertebral fusion (Chronic) M43.22 History of colonoscopy Onset Date: ~12/05/17 Z98.890 History of tubal ligation Z98.51 history EGD with ph probe Onset Date: ~12/09/17 Hx of cholecystectomy Z90.49 Surgical History: cholecystectomy - 04/17/2018, - - Cervical spine surgery, BLTL, L shoulder surgery, R heel spur removal, hiatal hernia repair with mesh Psychiatric History: Anxiety, Bipolar Lives: Spouse/ Significant Other Smoking Status: Current every day smoker - *Family History Maternal Family History: Family History (Last Reviewed 07/31/18 @ 09:11 by Abdelrahman Adam MD) Mother Hypertension History Items: Diabetes, Hypertension Paternal Family History: Family History (Last Reviewed 07/31/18 @ 09:11 by Abdelrahman Adam MD) Mother Hypertension History Items: Cancer - Father w/ lung CA, metastatic, 70s., Diabetes, Heart Disease - He reported that his father had heart attack in his late 60s., Hypertension Review of Systems Constitutional: Denies: Chills, Fever, Weight Change HEENT: Denies: Head Aches, Sinus Congestion, Sinus Drainage Cardiovascular: Reports: Chest Pain. Denies: Palpitations Respiratory: Denies: Cough, Shortness of breath at rest, Sputum production Gastrointestinal: Reports: Nausea. Denies: Abdominal Pain, Vomiting Genitourinary: Denies: Dysuria Musculoskeletal: Denies: Joint Pain, Joint Tenderness Skin: Denies: Rash, Wounds Neurological: Denies: Numbness, Tingling, Focal weakness Psychiatric: Denies: Anxiety, Depression, Homicidal Ideations, Suicidal Ideations Hematologic/ Lymphatic: Denies: Easy Bruising, Easy Bleeding VTE Information - Inpt Only VTE Present on Admission: No VTE Mechan Device Prophylaxis: None VTE Pharm Prophylaxis ordered?: Yes - Physical Exam General: Alert, Oriented x3, Cooperative HEENT: Atraumatic, PERRLA, EOMI, Normocephalic Neck: Supple, No JVD, Negative Carotid Bruits Lungs: Clear to auscultation, Normal air movement, - - Tender chest Cardiovascular: Regular rate, No murmurs Abdomen: Bowel Sounds Present, Soft, Non Tender Extremities: No edema, Capillary Refill Less than 3 Seconds, Tenderness - upper back. Skin: No rashes, No breakdown Musculoskeletal: Tenderness - Upper back. Neurological: Neuro grossly intact Psych/Mental Status: Normal Affect, Appropriate Vital Signs Temp Pulse Resp BP Pulse Ox 98.4 F 93 12 163/101 H 93 07/30/18 22:21 07/30/18 23:29 07/30/18 23:29 07/30/18 22:21 07/30/18 23:29 Oxygen Flow Rate (L/min) 2 Oxygen Delivery Method Nasal Cannula Weight: 102.7 kg Body Mass Index (BMI) 40.1 Finger Stick Blood Glucose 143 Laboratory Tests Past 24 Hrs 07/30/18 07/30/18 22:34 22:34 WBC 9.3 RBC 3.91 L Hgb 12.2 Hct 38.3 MCV 98.0 MCH 31.2 MCHC 31.9 L RDW 16.0 H RDW Differential 57.2 H Plt Count 294 MPV 9.3 Immature Gran % (Auto) 0.400 Neut % (Auto) 75.8 H Lymph % (Auto) 16.3 L [place] % (Auto) 7.5 Eos % (Auto) 0.0 Baso % (Auto) 0.0 Absolute Neuts (auto) 7.0 Absolute Lymphs (auto) 1.51 Total Counted Not Reportable Sodium 144 Potassium 3.7 Chloride 105 Carbon Dioxide 33.0 H Anion Gap 6 BUN 20 H Creatinine 1.33 H Estim Creat Clear Calc 38.14 Est GFR (MDRD) Af Amer 53 L Est GFR (MDRD) Non-Af 44 L BUN/Creatinine Ratio 15.0 Glucose 136 H Calcium 8.7 Troponin I < 0.015 Assessment/Plan All Active Problems (Last Reviewed 07/31/18 @ 09:07 by Abdelrahman Adam MD) Gallbladder sludge (Resolved) Right upper quadrant abdominal pain (Resolved) Abdominal pain (Resolved) Acute pain of right foot (Resolved) Acute right ankle pain (Resolved) Lower GI bleed (Resolved) SIRS (systemic inflammatory response syndrome) (Resolved) Chest pain (Acute) Pancreatitis (Resolved) The patient is a 58 year old F with a significant history of tobacco abuse; gout;hypertension; diabetes; hyperlipidemia; fibromyalgia; CKD stage III; chronic back pain who presented with a continuous substernal sharp and stabbing chest pain. Chest pain Patient has multiple risk factors for cardiac source of chest pain. However she had a negative stress test in summer of this year moreover her chest pain and back pain is reproducible. We will still rule out cardiac source of chest pain. Admit to a monitored bed on PCU CXR independently reviewed confirms no acute cardia pulmonary process. EKG independently reviewed confirms sinus rhythm Patient received aspirin 325 mg at emergency department. ASA 81 mg p.o. daily SL NTG 0.4 mg prn as needed for chest pain. Patient received morphine and Zofran at the emergency department. Serial cardiac enzymes ordered. Troponin so far are negative. Stat EKG as needed for chest pain Fasting lipids in a.m. We will discontinue home simvastatin and start patient on high intensity statin with Lipitor. Stress test in the AM if the cardiac enzymes are negative DVT prophylaxis ordered. Right eye conjunctivitis. Patient received gentamicin eyedrop at emergency department; gentamicin eyedrops continued. Hypertension On admission blood pressure was not within goal. Lisinopril continued Trend blood pressures and adjust blood pressure medication. Diabetes Admission blood glucose was not within goal. Tradjenta and glimepiride was continued Correction scale insulin was added to her regimen. COPD Stable Albuterol continued. Continue home LAMA and ICS. CKD stage III Her creatinine is stable. Bilateral leg swelling No swelling noted on admission. We will continue her home Lasix. Chronic back pain Home oxycodone continued. Gout Allopurinol continued. Was recently on prednisone with last dose on the day of admission. Depression/anxiety Continue duloxetine Tobacco abuse Counseled Nicotine patch ordered. DVT prophylaxis Heparin subcutaneous ordered Code Visit OBSV E&M: 38292 Initial observation care L3
[2018-07-30 23:53] VITALS: BP 135/86; PULSE 92; RESP 15; O2SAT 92
[2018-07-31] VITALS (18 sets, daily range): BP systolic 113–136; BP diastolic 59–91; PULSE 88–106; RESP 14–20; TEMP 36.6–37.2; O2SAT 89–97; BMI 39.6
--- NOTE | 2018-07-31 00:28 | ED.RN ---
SPOKE WITH ANNE IN PHARMACY WHO STATES HE WILL SEND EYE DROPS TO [facility].
[2018-07-31] MEDS: Gentamicin Sulfate 1 OPTH.BTL 1 DRP RIGHT EYE ×6 (01:07→22:24)
--- NOTE | 2018-07-31 01:22 | EKG12_ITS ---
Test Reason : Blood Pressure : / mmHG Vent. Rate : 103 BPM Atrial Rate : 103 BPM P-R Int : 150 ms QRS Dur : 092 ms QT Int : 364 ms P-R-T Axes : 060 037 037 degrees QTc Int : 476 ms Sinus tachycardia Otherwise normal ECG Confirmed by LE BE, BON ([id number]), editorial project manager REINIER PENDLETON ([id number] on 08/02/2018 3:35:25 PM Referred By: Hua Mosher Confirmed By:BON LUJAN MD
[2018-07-31 05:21] LABS: Absolute Lymphocyte Count 2.05 X10^3/ul (0.83-4.51); Absolute Neutrophil Count 5.5 X10^3/uL (2.0-7.7); Basophil# 0.01 X10^3/uL; Basophil% 0.1 % (0-1); Eosinophil# 0.05 X10^3/uL; Eosinophils% 0.6 % (0-5); Hematocrit 36.6 % (37-47); Hemoglobin 11.4 g/dl (12.0-15.0); Lymphocyte # 2.05 X10^3/ul (4.0); Lymphocyte % 24.9 % (19-41); Mean Corp Hgb Conc 31.1 g/gl (32-36); Mean Corpuscular Hgb 31.2 pg (27.0-32.0); Mean Corpuscular Volume 100.3 fL (81-99); Mean Platelet Vol. 9.6 fl (6.2-12.0); Monocyte# 0.57 X10^3/uL; Monocyte% 6.9 % (0-10); Neutrophil % 66.9 % (47-70); Platelet Count 299 K/mm3 (150-450); RBC Distribution Width CV 16.1 % (11.6-14.6); RBC Distribution Width SD 57.5 fl (35.1-43.9); Red Blood Count 3.65 M/mm3 (4.2-5.4); White Blood Count 8.2 K/mm3 (4.4-11.0)
[2018-07-31 05:26] LABS: POSITIVE COUNT NO; POSITIVE DIFFERENTIAL NO; POSITIVE MORPHOLOGY NO
[2018-07-31] MEDS: Aspirin E.C. 81 MG Tablet PO (05:39)
[2018-07-31] MEDS: Lisinopril 5 MG Tablet PO (05:39)
[2018-07-31 05:42] LABS: Anion Gap 7 (5-15); BUN 19 mg/dL (7-18); BUN/Creat Ratio 14.5 RATIO (10-20); Calcium,Total 8.5 mg/dL (8.5-10.1); Chloride 107 mmol/L (98-107); Cholesterol 134 mg/dL (200); Creatinine, Serum 1.31 mg/dL (0.55-1.02); EST Glomerular Filtration Rate 44 mL/min (>60); Est Glom Filt Rate - Afr Amer 54 mL/min (>60); Estimated Creatinine Clearance 38.72 ml/min; Glucose 153 mg/dL (74-106); High Density Lipoprotein 51 mg/dL; Potassium 3.6 mmol/L (3.5-5.1); Sodium Level 149 mmol/L (136-145); Triglycerides 87 mg/dL; Very Low Density Lipoprotein 17 mg/dL (5-40)
[2018-07-31 06:06] LABS: Bedside Glucose 159 mg/dL (70-110)
[2018-07-31 06:27] LABS: International Normalized Ratio 0.9; Prothrombin Time (Protime)PT. 12.5 SECONDS (11.7-14.9)
[2018-07-31 06:28] LABS: Partial Thromboplast Time 27.5 Seconds (24.1-36.2)
--- NOTE | 2018-07-31 07:12 | NURSING ---
off floor for nuclear stress test
--- NOTE | 2018-07-31 09:17 | NURSING ---
PT REturn from nuclear. c/o midsternal chestpain 7 out of 10. 0915 HR 99 SpO2 89% R 16, BP 126/77 to 2lnc 0916 1 sl nitro given. BP 123/75, 12 lead EKG in progress 919 pt states pain 4 out of 10. HR 100 r 16 SpO2 92 % o n2lnc, BP 122/68 0922 EKG complete 0930 up to BR, SBA no diff. states chest pain now 2 out of 10 BP 119/70
[2018-07-31] MEDS: Furosemide 20 MG Tablet PO ×2 (09:43→13:57)
[2018-07-31] MEDS: Gabapentin 300 MG Capsule PO ×2 (09:43→13:56)
[2018-07-31] MEDS: DULoxetine Hcl 30 MG Capsule 90 MG PO (09:44)
[2018-07-31] MEDS: LINAGLIPTIN 5 MG TABLET PO (09:44)
[2018-07-31] MEDS: Allopurinol 100 MG Tablet PO ×2 (09:44→16:06)
[2018-07-31] MEDS: Pantoprazole Sodium 20 MG Tablet PO (09:44)
[2018-07-31 11:06] LABS: Bedside Glucose 147 mg/dL (70-110)
[2018-07-31] MEDS: Ipratropium/Albuterol Sulfate 3 ML AMPUL.NEB INHALATION ×2 (13:21→19:59)
[2018-07-31] MEDS: Heparin Injection (Vial) 5,000 UNIT/ML VIAL 5000 UNIT SC ×2 (13:57→22:25)
--- NOTE | 2018-07-31 14:18 | STRESSREP ---
Stress Test Report Date: 07/31/2018 Procedure: Pharmacologic stress nuclear imaging study Indications: Chest pain Consent: Per the patient Procedure: The patient underwent pharmacologic (Regadenoson) evaluation with a peak heart rate of 160 beats per minute (98 predicted maximal heart rate) and a peak blood pressure of 128/82 mmHg. The baseline ECG demonstrated normal sinus rhythm. The peak pharmacologic ECG demonstrated no obvious ECG changes. There were no cardiac dysrhythmias pretest, during pharmacologic infusion, or recovery. The patient was noted to have chest discomfort pretest, during pharmacologic infusion, and recovery without significant change. The examination was discontinued secondary to completion of protocol. Impression: 1. Pharmacologic (Regadenoson) evaluation 2. Peak pharmacologic ECG with no obvious ECG changes. 3. There were no cardiac dysrhythmias pretest, during pharmacologic infusion, or recovery. 4. Nuclear images pending Myocardial perfusion imaging study: Technique: The patient was injected with 14.9 millicuries of technetium 99m Cardiolite and subsequently rest SPECT Cardiolite nuclear imaging was obtained in the horizontal long, vertical long, and short axis views. The patient underwent pharmacologic (Regadenoson) evaluation with a peak heart rate of 160 beats per minute (98 % percent predicted maximal heart rate) and a peak blood pressure of 128/82 mmHg. The patient was injected with 44.8 millicuries of technetium 99m Cardiolite and subsequently stress SPECT Cardiolite nuclear imaging was obtained in the horizontal long, vertical long, and short axis views. A gated Cardiolite study at peak stress was obtained. Interpretation: Rest and stress SPECT Cardiolite nuclear imaging status post realignment, normalization, and attenuation correction demonstrate relative uniform tracer uptake and myocardial perfusion appearing within normal limits. There is end systolic thickening and brightening. The gated Cardiolite study demonstrates myocardial thickening and inward wall motion. The reported LVEF is 71%. Impression: 1. Rest and stress SPECT Cardiolite nuclear imaging demonstrate relative uniform tracer uptake and myocardial perfusion appearing within normal limits. 2. The gated Cardiolite study reports an LVEF of 71 %. This note was generated with [employer] software. It may contain incorrect words, spelling, and punctuation that were not noted in checking the note before signing.
[2018-07-31] MEDS: Ondansetron 4 MG/2 ML Vial IV (16:06)
[2018-07-31 16:08] LABS: D-Dimer Quantitative (DVT/PE) 1.58 FEU/ug/m (0.27-0.49)
[2018-07-31 16:16] LABS: Bedside Glucose 252 mg/dL (70-110)
--- NOTE | 2018-07-31 17:04 | CT_ITS ---
STUDY: CTA CHEST REASON FOR EXAM: Female, 58 years old. Elevated d-dimer. COPD. RADIATION DOSAGE (If Supplied By Facility): CTDIvol = ( 16.24 ) mGy, DLP = ( 617.39 ) mGycm TECHNIQUE: The examination was performed with the intravenous administration of 100 ml of Isovue 300 contrast material. Post-processing of the angiographic images was performed, with multiplanar reformation and 3D reconstruction. Individualized dose optimization techniques were used for this CT. COMPARISON: 10/15/2017 FINDINGS: There are stable mild emphysematous changes noted in the lungs with bulla in the right lower lobe. There is mosaic attenuation noted throughout the lungs, consistent with air trapping. There are trace bilateral pleural effusions with overlying atelectasis. There are no focal infiltrates. There is no evidence of pulmonary embolus. There is no evidence of thoracic aortic aneurysm or dissection. The heart and pericardium are within normal limits. There are coronary artery calcifications noted. Images through the upper abdomen demonstrate a small hiatal hernia. There are no destructive osseous lesions. CT/CTA Chest W/WO Contrast IMPRESSION: No evidence of pulmonary embolus. No evidence of thoracic aortic aneurysm or dissection. Stable mild emphysema with air trapping. Trace bilateral pleural effusions with overlying atelectasis. No focal infiltrates. Coronary artery disease. Small hiatal hernia. Electronically Signed: Joel Godfrey, at 18:15 EST Tel , Service support ,
--- NOTE | 2018-07-31 17:24 | PCM.PN.HOSP ---
Subjective: Patient continues to have midsternal chest pain, and shortness of breath even though she is satting normally. She states that she has been having increased shortness of breath over the last 6 weeks and has gained 8 pounds in the last 2-3 weeks. Vitals/I&O's: Vital Signs Temp Pulse Resp BP Pulse Ox 97.8 F 106 H 20 H 113/61 97 07/31/18 14:04 07/31/18 15:00 07/31/18 14:04 07/31/18 14:04 07/31/18 14:04 Oxygen Flow Rate (L/min) 2 Oxygen Delivery Method Nasal Cannula Weight: 223 lb 8.78 oz Body Mass Index (BMI) 39.6 Finger Stick Blood Glucose 143 Intake and Output for Last 24 Hours 07/29/18 07/30/18 07/31/18 23:59 23:59 23:59 Intake Total 580 / 580 Balance 580 / 580 General: Alert, Oriented x3, Cooperative, No apparent distress HEENT: Atraumatic, PERRLA, EOMI, Normocephalic Oral: Moist Mucosa Neck: Supple, No JVD Lungs: Clear to auscultation, Normal air movement, No rhonchi, No wheeze, No rales Cardiovascular: Regular rate, Regular Rhythm, Normal S1, Normal S2, No murmurs Abdomen: Soft, Non Tender, Non-Distended, No Hepato-splenomegaly Extremities: Capillary Refill Less than 3 Seconds, Edema - Trace pitting Skin: No rashes, No breakdown Neurological: Neuro grossly intact, Sensory exam intact to light touch and pain Psych/Mental Status: Normal Affect, Appropriate Laboratory Results 07/30/18 22:34: WBC 9.3, RBC 3.91 L, Hgb 12.2, Hct 38.3, MCV 98.0, MCH 31.2, MCHC 31.9 L, RDW 16.0 H, RDW Differential 57.2 H, Plt Count 294, MPV 9.3, Immature Gran % (Auto) 0.400, Neut % (Auto) 75.8 H, Lymph % (Auto) 16.3 L, [place] % (Auto) 7.5, Eos % (Auto) 0.0, Baso % (Auto) 0.0, Absolute Neuts (auto) 7.0, Absolute Lymphs (auto) 1.51, Total Counted Not Reportable 07/30/18 22:34: Sodium 144, Potassium 3.7, Chloride 105, Carbon Dioxide 33.0 H, Anion Gap 6, BUN 20 H, Creatinine 1.33 H, Estim Creat Clear Calc 38.14, Est GFR (MDRD) Af Amer 53 L, Est GFR (MDRD) Non-Af 44 L, BUN/Creatinine Ratio 15.0, Glucose 136 H, Calcium 8.7, Troponin I < 0.015 07/31/18 01:14: Troponin I < 0.015 07/31/18 05:10: Sodium 149 H, Potassium 3.6, Chloride 107, Carbon Dioxide 35.0 H, Anion Gap 7, BUN 19 H, Creatinine 1.31 H, Estim Creat Clear Calc 38.72, Est GFR (MDRD) Af Amer 54 L, Est GFR (MDRD) Non-Af 44 L, BUN/Creatinine Ratio 14.5, Glucose 153 H, Calcium 8.5, Troponin I < 0.015, Triglycerides 87, Cholesterol 134, LDL Cholesterol 66, VLDL Cholesterol 17, HDL Cholesterol 51 07/31/18 05:10: PT Cancelled, INR Cancelled, APTT Cancelled 07/31/18 05:10: WBC 8.2, RBC 3.65 L, Hgb 11.4 L, Hct 36.6 L, MCV 100.3 H, MCH 31.2, MCHC 31.1 L, RDW 16.1 H, RDW Differential 57.5 H, Plt Count 299, MPV 9.6, Immature Gran % (Auto) 0.600, Neut % (Auto) 66.9, Lymph % (Auto) 24.9, [place] % (Auto) 6.9, Eos % (Auto) 0.6, Baso % (Auto) 0.1, Absolute Neuts (auto) 5.5, Absolute Lymphs (auto) 2.05, Total Counted Not Reportable 07/31/18 06:00: PT 12.5, INR 0.9, APTT 27.5 07/31/18 06:02: POC Glucose 159 H 07/31/18 09:11: POC Glucose 147 H 07/31/18 15:33: D-Dimer Quant (PE/DVT) Pending 07/31/18 16:11: POC Glucose 252 H Current Medications Acetaminophen (Tylenol) 650 mg PO Q6H PRN PRN PRN Reason: Mild Pain (1-3)/Temp > 100.7 F Albuterol Sulfate (Ventolin Aerosols) 2.5 mg INHALATION Q2H PRN PRN PRN Reason: sob/wheezing Albuterol/Ipratropium (Duoneb) 3 ml INHALATION Q6HWA.RT [facility] Last Admin: 07/31/18 13:21 Dose: 3 ml Allopurinol (Zyloprim) 100 mg PO BIDCM [facility] Last Admin: 07/31/18 16:06 Dose: 100 mg Aspirin (Ecotrin) 81 mg PO DAILY@0800 [facility] Last Admin: 07/31/18 05:39 Dose: 81 mg Atorvastatin Calcium (Lipitor) 80 mg PO QHS [facility] Cholecalciferol (Vitamin D) 1,000 unit PO DAILY [facility] Last Admin: 07/31/18 09:44 Dose: 1,000 unit Duloxetine HCl (Cymbalta) 90 mg PO DAILY [facility] Last Admin: 07/31/18 09:44 Dose: 90 mg Furosemide (Lasix) 20 mg PO BID@0800,1200 [facility] Last Admin: 07/31/18 13:57 Dose: 20 mg Gabapentin (Neurontin) 300 mg PO 0800,1200 [facility] Last Admin: 07/31/18 13:56 Dose: 300 mg Gabapentin (Neurontin) 600 mg PO QHS [facility] Gentamicin Sulfate (Garamycin Ophthalmic Drops) 1 drop RIGHT EYE Q4 [facility] Last Admin: 07/31/18 13:57 Dose: 1 drop Glimepiride (Amaryl) 1 mg PO QHS [facility] Heparin Sodium (Porcine) (Heparin Na) 5,000 unit SC Q8 [facility] Last Admin: 07/31/18 13:57 Dose: 5,000 unit Linagliptin (Tradjenta) 5 mg PO DAILY [facility] Last Admin: 07/31/18 09:44 Dose: 5 mg Lisinopril (Zestril) 5 mg PO DAILY [facility] Last Admin: 07/31/18 05:39 Dose: 5 mg Magnesium Hydroxide (Milk Of Magnesia) 30 ml PO DAILY PRN PRN Reason: Constipation Nicotine (Nicoderm Cq (Pbkc)) 21 mg TRANSDERM. DAILY [facility] Last Admin: 07/31/18 09:44 Dose: 21 mg Nitroglycerin (Nitrostat) 0.4 mg SUBLINGUAL Q5M PRN PRN Reason: CHEST PAIN Ondansetron HCl (Zofran) 4 mg IV Q8H PRN PRN PRN Reason: NAUSEA Last Admin: 07/31/18 16:06 Dose: 4 mg Oxycodone HCl (Oxyir) 5 - 10 mg PO Q4H PRN PRN PRN Reason: SEVERE PAIN (6-10/10) Pantoprazole Sodium (Protonix) 20 mg PO DAILY [facility] Last Admin: 07/31/18 09:44 Dose: 20 mg Tizanidine HCl (Zanaflex) 4 mg PO QHS [facility] Trazodone HCl (Desyrel) 200 mg PO QHS [facility] Medical Necessity - Tobacco Use Smoking Status: Current every day smoker Tobacco Use: Cigarettes Assessment/Plan All Active Problems (Last Reviewed 07/31/18 @ 09:07 by Abdelrahman Adam MD) Gallbladder sludge (Resolved) Right upper quadrant abdominal pain (Resolved) Abdominal pain (Resolved) Acute pain of right foot (Resolved) Acute right ankle pain (Resolved) Lower GI bleed (Resolved) SIRS (systemic inflammatory response syndrome) (Resolved) Chest pain (Acute) Pancreatitis (Resolved) 1. Chest pain rule out/shortness of breath/edema/COPD/LATA -Stress test today was negative, similar results to her stress test back in October, troponins negative x2 -She did have some episodes of tachycardia, and she was hypoxic overnight -She is supposed to be on CPAP at night -He is continuing to complain of substernal chest pain, so d-dimer was obtained which was elevated to 1.58 though not as high as her 2.4 back in October -To be sure will obtain a CTA of the chest to rule out PE, will also obtain a BNP to rule out heart failure -Chest x-ray negative for pleural effusion -Continue with DuoNeb -Continue with her p.o. Lasix 2. Hypertension/CKD 3 -Blood pressures are stable now -SBP 113 -Continue with lisinopril 3. DM 2 -We will monitor her blood sugars -She is on a sliding scale insulin and we can continue her Tradjenta, will hold her glimepiride while inpatient 4. Depression/anxiety -Stable -Continue with Cymbalta DVT: Heparin Code Visit OBSV E&M: 43320 Initial observation care L2
--- NOTE | 2018-07-31 17:30 | NURSING ---
to CT per bed
--- NOTE | 2018-07-31 17:33 | PN_ITS ---
Subjective: Patient continues to have midsternal chest pain, and shortness of breath even though she is satting normally. She states that she has been having increased shortness of breath over the last 6 weeks and has gained 8 pounds in the last 2- 3 weeks. Vitals/I&O's: Vital Signs Temp Pulse Resp BP Pulse Ox 97.8 F 106 H 20 H 113/61 97 07/31/18 14:04 07/31/18 15:00 07/31/18 14:04 07/31/18 14:04 07/31/18 14:04 Oxygen Flow Rate (L/min) 2 Oxygen Delivery Method Nasal Cannula Weight: 223 lb 8.78 oz Body Mass Index (BMI) 39.6 Finger Stick Blood Glucose 143 Intake and Output for Last 24 Hours 07/29/18 07/30/18 07/31/18 23:59 23:59 23:59 Intake Total 580 / 580 Balance 580 / 580 General: Alert, Oriented x3, Cooperative, No apparent distress HEENT: Atraumatic, PERRLA, EOMI, Normocephalic Oral: Moist Mucosa Neck: Supple, No JVD Lungs: Clear to auscultation, Normal air movement, No rhonchi, No wheeze, No rales Cardiovascular: Regular rate, Regular Rhythm, Normal S1, Normal S2, No murmurs Abdomen: Soft, Non Tender, Non-Distended, No Hepato-splenomegaly Extremities: Capillary Refill Less than 3 Seconds, Edema - Trace pitting Skin: No rashes, No breakdown Neurological: Neuro grossly intact, Sensory exam intact to light touch and pain Psych/Mental Status: Normal Affect, Appropriate Laboratory Results 07/30/18 22:34: WBC 9.3, RBC 3.91 L, Hgb 12.2, Hct 38.3, MCV 98.0, MCH 31.2, MCHC 31.9 L, RDW 16.0 H, RDW Differential 57.2 H, Plt Count 294, MPV 9.3, Immature Gran % (Auto) 0.400, Neut % (Auto) 75.8 H, Lymph % (Auto) 16.3 L, [place] % (Auto) 7.5, Eos % (Auto) 0.0, Baso % (Auto) 0.0, Absolute Neuts (auto) 7.0, Absolute Lymphs (auto) 1.51, Total Counted Not Reportable 07/30/18 22:34: Sodium 144, Potassium 3.7, Chloride 105, Carbon Dioxide 33.0 H, Anion Gap 6, BUN 20 H, Creatinine 1.33 H, Estim Creat Clear Calc 38.14, Est GFR (MDRD) Af Amer 53 L, Est GFR (MDRD) Non-Af 44 L, BUN/Creatinine Ratio 15.0, Glucose 136 H, Calcium 8.7, Troponin I < 0.015 07/31/18 01:14: Troponin I < 0.015 07/31/18 05:10: Sodium 149 H, Potassium 3.6, Chloride 107, Carbon Dioxide 35.0 H , Anion Gap 7, BUN 19 H, Creatinine 1.31 H, Estim Creat Clear Calc 38.72, Est GFR (MDRD) Af Amer 54 L, Est GFR (MDRD) Non-Af 44 L, BUN/Creatinine Ratio 14.5, Glucose 153 H, Calcium 8.5, Troponin I < 0.015, Triglycerides 87, Cholesterol 134, LDL Cholesterol 66, VLDL Cholesterol 17, HDL Cholesterol 51 07/31/18 05:10: PT Cancelled, INR Cancelled, APTT Cancelled 07/31/18 05:10: WBC 8.2, RBC 3.65 L, Hgb 11.4 L, Hct 36.6 L, MCV 100.3 H, MCH 31.2, MCHC 31.1 L, RDW 16.1 H, RDW Differential 57.5 H, Plt Count 299, MPV 9.6, Immature Gran % (Auto) 0.600, Neut % (Auto) 66.9, Lymph % (Auto) 24.9, [place] % (Auto) 6.9, Eos % (Auto) 0.6, Baso % (Auto) 0.1, Absolute Neuts (auto) 5.5, Absolute Lymphs (auto) 2.05, Total Counted Not Reportable 07/31/18 06:00: PT 12.5, INR 0.9, APTT 27.5 07/31/18 06:02: POC Glucose 159 H 07/31/18 09:11: POC Glucose 147 H 07/31/18 15:33: D-Dimer Quant (PE/DVT) Pending 07/31/18 16:11: POC Glucose 252 H Current Medications Acetaminophen (Tylenol) 650 mg PO Q6H PRN PRN PRN Reason: Mild Pain (1-3)/Temp > 100.7 F Albuterol Sulfate (Ventolin Aerosols) 2.5 mg INHALATION Q2H PRN PRN PRN Reason: sob/wheezing Albuterol/Ipratropium (Duoneb) 3 ml INHALATION Q6HWA.RT [facility] Last Admin: 07/31/18 13:21 Dose: 3 ml Allopurinol (Zyloprim) 100 mg PO BIDCM [facility] Last Admin: 07/31/18 16:06 Dose: 100 mg Aspirin (Ecotrin) 81 mg PO DAILY@0800 [facility] Last Admin: 07/31/18 05:39 Dose: 81 mg Atorvastatin Calcium (Lipitor) 80 mg PO QHS [facility] Cholecalciferol (Vitamin D) 1,000 unit PO DAILY [facility] Last Admin: 07/31/18 09:44 Dose: 1,000 unit Duloxetine HCl (Cymbalta) 90 mg PO DAILY [facility] Last Admin: 07/31/18 09:44 Dose: 90 mg Furosemide (Lasix) 20 mg PO BID@0800,1200 [facility] Last Admin: 07/31/18 13:57 Dose: 20 mg Gabapentin (Neurontin) 300 mg PO 0800,1200 [facility] Last Admin: 07/31/18 13:56 Dose: 300 mg Gabapentin (Neurontin) 600 mg PO QHS [facility] Gentamicin Sulfate (Garamycin Ophthalmic Drops) 1 drop RIGHT EYE Q4 [facility] Last Admin: 07/31/18 13:57 Dose: 1 drop Glimepiride (Amaryl) 1 mg PO QHS [facility] Heparin Sodium (Porcine) (Heparin Na) 5,000 unit SC Q8 [facility] Last Admin: 07/31/18 13:57 Dose: 5,000 unit Linagliptin (Tradjenta) 5 mg PO DAILY [facility] Last Admin: 07/31/18 09:44 Dose: 5 mg Lisinopril (Zestril) 5 mg PO DAILY [facility] Last Admin: 07/31/18 05:39 Dose: 5 mg Magnesium Hydroxide (Milk Of Magnesia) 30 ml PO DAILY PRN PRN Reason: Constipation Nicotine (Nicoderm Cq (Pbkc)) 21 mg TRANSDERM. DAILY [facility] Last Admin: 07/31/18 09:44 Dose: 21 mg Nitroglycerin (Nitrostat) 0.4 mg SUBLINGUAL Q5M PRN PRN Reason: CHEST PAIN Ondansetron HCl (Zofran) 4 mg IV Q8H PRN PRN PRN Reason: NAUSEA Last Admin: 07/31/18 16:06 Dose: 4 mg Oxycodone HCl (Oxyir) 5 - 10 mg PO Q4H PRN PRN PRN Reason: SEVERE PAIN (6-10/10) Pantoprazole Sodium (Protonix) 20 mg PO DAILY [facility] Last Admin: 07/31/18 09:44 Dose: 20 mg Tizanidine HCl (Zanaflex) 4 mg PO QHS [facility] Trazodone HCl (Desyrel) 200 mg PO QHS [facility] Medical Necessity - Tobacco Use Smoking Status: Current every day smoker Tobacco Use: Cigarettes Assessment/Plan All Active Problems (Last Reviewed 07/31/18 @ 09:07 by Abdelrahman Adam MD) Gallbladder sludge (Resolved) Right upper quadrant abdominal pain (Resolved) Abdominal pain (Resolved) Acute pain of right foot (Resolved) Acute right ankle pain (Resolved) Lower GI bleed (Resolved) SIRS (systemic inflammatory response syndrome) (Resolved) Chest pain (Acute) Pancreatitis (Resolved) 1. Chest pain rule out/shortness of breath/edema/COPD/LATA -Stress test today was negative, similar results to her stress test back in October, troponins negative x2 -She did have some episodes of tachycardia, and she was hypoxic overnight -She is supposed to be on CPAP at night -He is continuing to complain of substernal chest pain, so d-dimer was obtained which was elevated to 1.58 though not as high as her 2.4 back in October -To be sure will obtain a CTA of the chest to rule out PE, will also obtain a BNP to rule out heart failure -Chest x-ray negative for pleural effusion -Continue with DuoNeb -Continue with her p.o. Lasix 2. Hypertension/CKD 3 -Blood pressures are stable now -SBP 113 -Continue with lisinopril 3. DM 2 -We will monitor her blood sugars -She is on a sliding scale insulin and we can continue her Tradjenta, will hold her glimepiride while inpatient 4. Depression/anxiety -Stable -Continue with Cymbalta DVT: Heparin Code Visit OBSV E&M: 68424 Initial observation care L2
--- NOTE | 2018-07-31 17:45 | NURSING ---
return from CT
[2018-07-31 18:18] LABS: BNP,B-Type NATRIURETIC PEPTIDE 113.6 pg/mL (0-100)
[2018-07-31] MEDS: Mag Hydrox/Al Hydrox/Simeth 30 ML UDC PO (19:47)
[2018-07-31] MEDS: traZODone 100 MG Tablet 200 MG PO (22:24)
[2018-07-31] MEDS: tiZANidine HCl 2 MG Tablet 4 MG PO (22:25)
[2018-07-31] MEDS: Gabapentin 600 MG Tablet PO (22:25)
[2018-07-31] MEDS: Atorvastatin Calcium 80 MG Tablet PO (22:25)
[2018-08-01] MEDS: Gentamicin Sulfate 1 OPTH.BTL 1 DRP RIGHT EYE ×3 (01:12→09:52)
[2018-08-01 01:15] VITALS: BP 122/57; PULSE 99; RESP 16; TEMP 36.9; O2SAT 94
[2018-08-01 03:00] VITALS: PULSE 98
[2018-08-01] MEDS: Heparin Injection (Vial) 5,000 UNIT/ML VIAL 5000 UNIT SC (05:44)
[2018-08-01 05:45] VITALS: BP 152/77; PULSE 95; RESP 16; TEMP 36.9; O2SAT 96
--- NOTE | 2018-08-01 06:27 | CPS ---
pt was already sleeping comfortably , did not wake pt
[2018-08-01 06:55] LABS: Bedside Glucose 195 mg/dL (70-110)
[2018-08-01 06:57] VITALS: PULSE 96; RESP 20; O2SAT 96
[2018-08-01] MEDS: Ipratropium/Albuterol Sulfate 3 ML AMPUL.NEB INHALATION (06:57)
[2018-08-01 07:21] LABS: Absolute Lymphocyte Count 1.97 X10^3/ul (0.83-4.51); Absolute Neutrophil Count 5.1 X10^3/uL (2.0-7.7); Basophil# 0.02 X10^3/uL; Basophil% 0.3 % (0-1); Eosinophil# 0.14 X10^3/uL; Eosinophils% 1.8 % (0-5); Hematocrit 37.5 % (37-47); Hemoglobin 11.5 g/dl (12.0-15.0); Lymphocyte # 1.97 X10^3/ul (4.0); Lymphocyte % 25.2 % (19-41); Mean Corp Hgb Conc 30.7 g/gl (32-36); Mean Corpuscular Hgb 31.2 pg (27.0-32.0); Mean Corpuscular Volume 101.6 fL (81-99); Mean Platelet Vol. 9.6 fl (6.2-12.0); Monocyte# 0.53 X10^3/uL; Monocyte% 6.8 % (0-10); Neutrophil # 5.08 X10^3/uL (2.7-7.7); Neutrophil % 64.8 % (47-70); Platelet Count 313 K/mm3 (150-450); RBC Distribution Width CV 16.6 % (11.6-14.6); Red Blood Count 3.69 M/mm3 (4.2-5.4); White Blood Count 7.8 K/mm3 (4.4-11.0)
[2018-08-01 07:25] LABS: POSITIVE COUNT NO; POSITIVE DIFFERENTIAL NO; POSITIVE MORPHOLOGY NO
[2018-08-01 07:33] LABS: Anion Gap 6 (5-15); BUN 20 mg/dL (7-18); BUN/Creat Ratio 15.6 RATIO (10-20); Calcium,Total 8.3 mg/dL (8.5-10.1); Chloride 105 mmol/L (98-107); Creatinine, Serum 1.28 mg/dL (0.55-1.02); EST Glomerular Filtration Rate 45 mL/min (>60); Est Glom Filt Rate - Afr Amer 55 mL/min (>60); Estimated Creatinine Clearance 39.63 ml/min; Glucose 215 mg/dL (74-106); Potassium 3.7 mmol/L (3.5-5.1); Sodium Level 145 mmol/L (136-145)
[2018-08-01 08:04] VITALS: PULSE 104
--- NOTE | 2018-08-01 09:26 | DCINST_ITS ---
You will use the following diet at home:: Calorie/Carbohydrate Controlled (specify 1200, 1400, etc) Your food should be the consistency of: Regular Your liquids should be the consistency of: Regular/Thin Discharge Activity: Return to Normal Activity Call your doctor if you observe: Fever of 101 or Higher, Shortness of breath, Dizziness, Fainting spells, Chest pain, Increased palpitations (irregular heartbeat) Allergies/Adverse Reactions: Allergies No Known Allergies Allergy (Verified 07/30/18 22:21) Medications to take at Discharge Cholecalciferol (VIT D3) [Vitamin D3] 1,000 unit PO DAILY 10/08/15 Lisinopril [Zestril] 5 mg PO DAILY 10/08/15 Simvastatin [Zocor] 20 mg PO QHS 10/08/15 Tizanidine HCl 4 mg PO QHS 10/08/15 Trazodone HCl 200 mg PO QHS 08/23/16 Linagliptin [Tradjenta] 5 mg PO DAILY 10/15/17 furosemide 20 mg tablet 20 mg PO BID tab 11/15/17 Gabapentin [Neurontin] 300 mg PO 0800,1200 11/28/17 Omeprazole Magnesium [Prilosec Otc] 20 mg PO DAILY 11/28/17 Oxycodone HCl/Acetaminophen [Percocet 5-325] 1 - 2 tab PO Q4H PRN PRN 5 Days #30 tab 04/17/18 Gabapentin [Neurontin] 600 mg PO QHS 04/20/18 Glimepiride 1 mg PO QHS 05/18/18 Prednisone 10 mg PO UD #50 tab 05/20/18 albuterol sulfate HFA 90 mcg/actuation aerosol inhaler 2 puff INHALATION Q6H PRN #1 device 06/18/18 duloxetine 60 mg capsule,delayed release 90 mg PO DAILY cap 06/18/18 umeclidinium 62.5 mcg-vilanterol 25 mcg/actuation powdr for inhalation 1 inh INHALATION Q24H #1 device 06/18/18 Allopurinol 100 mg PO BID 07/30/18 Gentamicin Ophthalmic Drops [Garamycin Ophthalmic Drops] 1 drop RIGHT EYE Q4 4 Days #1 opth.btl 08/01/18 The following prescriptions were given: Gentamicin Ophthalmic Drops [Garamycin Ophthalmic Drops] 1 drop RIGHT EYE Q4 4 Days #1 opth.btl Primary Care Physician: Hua Mosher MD [Primary Care Provider] - Please follow up with your Primary Care Physician in: 3-5 days Test Results: Test results from this visit will be discussed in further detail at your follow- up appointment, if applicable.
--- NOTE | 2018-08-01 09:26 | PCM.DC.SUM ---
Discharge Date and Diagnosis Date of Admission: 07/30/18 Date of Discharge: 08/01/18 - Secondary Discharge Diagnosis Chronic Problems (Last Reviewed 07/31/18 @ 09:07 by Abdelrahman Adam MD) Peripheral neuropathy (Chronic) gouty tenosynovitis (Chronic) Stage 2 moderate COPD by GOLD classification (Chronic) FEV1 66% of predicted Constipation (Chronic) Diverticulosis (Chronic) Morbid obesity with BMI of 40.0-44.9, adult (Chronic) Gastro-esophageal reflux disease without esophagitis (Chronic) Epigastric pain (Chronic) Ischemic colitis (Chronic) History of repair of hiatal hernia (Chronic) Cervical vertebral fusion (Chronic) Cervical radiculitis (Chronic) Fibromyalgia (Chronic) COPD (chronic obstructive pulmonary disease) (Chronic) Anxiety (Chronic) Hyperlipidemia (Chronic) Tobacco use (Chronic) on chantix Hypertension (Chronic) Diabetes mellitus, type II (Chronic) Chronic back pain (Chronic) CKD (chronic kidney disease) stage 3, GFR 30-59 ml/min (Chronic) Hospital Course and Treatment Imaging Results: CTA Chest: IMPRESSION: No evidence of pulmonary embolus. No evidence of thoracic aortic aneurysm or dissection. Stable mild emphysema with air trapping. Trace bilateral pleural effusions with overlying atelectasis. No focal infiltrates. Coronary artery disease. Small hiatal hernia. Consults: None Operations: None Procedures: Nuclear stress test - Interpretation: Rest and stress SPECT Cardiolite nuclear imaging status post realignment, normalization, and attenuation correction demonstrate relative uniform tracer uptake and myocardial perfusion appearing within normal limits. There is end systolic thickening and brightening. The gated Cardiolite study demonstrates myocardial thickening and inward wall motion. The reported LVEF is 71%. Impression: 1. Rest and stress SPECT Cardiolite nuclear imaging demonstrate relative uniform tracer uptake and myocardial perfusion appearing within normal limits. 2. The gated Cardiolite study reports an LVEF of 71 %. Summary of Care Provided: Per HPI: The patient is a 58 year old F with a significant history of tobacco abuse; COPD;gout;hypertension; diabetes; hyperlipidemia; fibromyalgia; CKD stage III; chronic back pain who presented with a continuous substernal sharp and stabbing chest pain that started few hours before her admission. Her pain radiates to under her left breast, her left neck and the left back. Her pain started gradually while lying in her bed. She reports nausea without vomiting. Pain is continuous and constant but with some episodic spikes. She denies any alleviating or aggravating factors to her pain. She denies diaphoresis. She reports increased belching on the same day of admission by stating that her chest pain is unrelated to food or to belching. She reported that in summer of this year she had a negative stress test. The stress test was done as part of a pre-operative procedure. Patient reported that his father had heart attack in his late 60s. Also patient reported that on the day of admission she woke up and she had red eye with itching. General: Alert, Oriented x3, Cooperative, No apparent distress HEENT: Atraumatic, EOMI, Normocephalic, Oral: Moist Mucosa Neck: Supple, No JVD Lungs: Clear to auscultation, Normal air movement, No rhonchi, No wheeze, No rales Cardiovascular: Regular rate, Regular Rhythm, Normal S1, Normal S2, No murmurs Abdomen: Soft, Non Tender, Non-Distended, No Hepato-splenomegaly Extremities: Capillary Refill Less than 3 Seconds, Edema - Trace pitting Skin: No rashes, No breakdown Neurological: Neuro grossly intact, Sensory exam intact to light touch and pain Psych/Mental Status: Normal Affect, Appropriate Hospital Course: 1. Chest pain rule out/shortness of breath/edema/COPD/LATA -58-year-old female who presented with chest pain and shortness of breath that was very similar to her October admission. She had a stress test which was also very similar to her stress test in October and negative. She continued to have chest pain shortness of breath and had intermittent episodes of tachycardia, therefore she also had a CTA done after d-dimer came back elevated to 1.58 though this was lower than her previous D-dimers at 2.4 in October. CTA was negative for a PE. She was given a GI cocktail yesterday after the CTA and today she says that her chest pain is much better. She would like to go home. I discussed with her that currently everything is negative for heart and she does not have a blood clot in her lungs therefore she is to follow-up with her PCP in 3-5 days. I made no changes to her home medications. 2. Right conjunctivitis -currently I cannot see any redness in her right eye, though she has been on gentamicin eyedrops while here therefore she will be discharged on it for 4 more days. 3. Her other medical diagnoses were evaluated in her home medications were continued were appropriate. - Physical Exam Vital Signs Temp Pulse Resp BP Pulse Ox 98.5 F 96 20 H 152/77 H 96 08/01/18 05:45 08/01/18 06:57 08/01/18 06:57 08/01/18 05:45 08/01/18 06:57 Oxygen Flow Rate (L/min) 2 Oxygen Delivery Method Nasal Cannula Weight: 223 lb 8.78 oz Body Mass Index (BMI) 39.6 Finger Stick Blood Glucose 143 Intake and Output for Last 24 Hours 07/30/18 07/31/18 08/01/18 23:59 23:59 23:59 Intake Total 820 / 820 370 / 370 Balance 820 / 820 370 / 370 Laboratory Tests Past 24 Hrs 07/31/18 07/31/18 08/01/18 05:10 15:33 06:50 WBC 7.8 RBC 3.69 L Hgb 11.5 L Hct 37.5 MCV 101.6 H MCH 31.2 MCHC 30.7 L RDW 16.6 H RDW Differential 60.0 H Plt Count 313 MPV 9.6 Immature Gran % (Auto) 1.100 H Neut % (Auto) 64.8 Lymph % (Auto) 25.2 [place] % (Auto) 6.8 Eos % (Auto) 1.8 Baso % (Auto) 0.3 Absolute Neuts (auto) 5.1 Absolute Lymphs (auto) 1.97 Total Counted Not Reportable D-Dimer Quant (PE/DVT) 1.58 H* Sodium Potassium Chloride Carbon Dioxide Anion Gap BUN Creatinine Estim Creat Clear Calc Est GFR (MDRD) Af Amer Est GFR (MDRD) Non-Af BUN/Creatinine Ratio Glucose Calcium B-Natriuretic Peptide 113.6 H 08/01/18 06:50 WBC RBC Hgb Hct MCV MCH MCHC RDW RDW Differential Plt Count MPV Immature Gran % (Auto) Neut % (Auto) Lymph % (Auto) [place] % (Auto) Eos % (Auto) Baso % (Auto) Absolute Neuts (auto) Absolute Lymphs (auto) Total Counted D-Dimer Quant (PE/DVT) Sodium 145 Potassium 3.7 Chloride 105 Carbon Dioxide 34.0 H Anion Gap 6 BUN 20 H Creatinine 1.28 H Estim Creat Clear Calc 39.63 Est GFR (MDRD) Af Amer 55 L Est GFR (MDRD) Non-Af 45 L BUN/Creatinine Ratio 15.6 Glucose 215 H Calcium 8.3 L B-Natriuretic Peptide POC Glucose 08/01/18 07/31/18 07/31/18 06:46 16:11 09:11 POC Glucose 195 H 252 H 147 H Discharge Activity: Return to Normal Activity Call your doctor if you observe: Fever of 101 or Higher, Shortness of breath, Dizziness, Fainting spells, Chest pain, Increased palpitations (irregular heartbeat) Home Medications: Medications to take at Discharge Cholecalciferol (VIT D3) [Vitamin D3] 1,000 unit PO DAILY 10/08/15 Lisinopril [Zestril] 5 mg PO DAILY 10/08/15 Simvastatin [Zocor] 20 mg PO QHS 10/08/15 Tizanidine HCl 4 mg PO QHS 10/08/15 Trazodone HCl 200 mg PO QHS 08/23/16 Linagliptin [Tradjenta] 5 mg PO DAILY 10/15/17 furosemide 20 mg tablet 20 mg PO BID tab 11/15/17 Gabapentin [Neurontin] 300 mg PO 0800,1200 11/28/17 Omeprazole Magnesium [Prilosec Otc] 20 mg PO DAILY 11/28/17 Oxycodone HCl/Acetaminophen [Percocet 5-325] 1 - 2 tab PO Q4H PRN PRN 5 Days #30 tab 04/17/18 Gabapentin [Neurontin] 600 mg PO QHS 04/20/18 Glimepiride 1 mg PO QHS 05/18/18 Prednisone 10 mg PO UD #50 tab 05/20/18 albuterol sulfate HFA 90 mcg/actuation aerosol inhaler 2 puff INHALATION Q6H PRN #1 device 06/18/18 duloxetine 60 mg capsule,delayed release 90 mg PO DAILY cap 06/18/18 umeclidinium 62.5 mcg-vilanterol 25 mcg/actuation powdr for inhalation 1 inh INHALATION Q24H #1 device 06/18/18 Allopurinol 100 mg PO BID 07/30/18 Gentamicin Ophthalmic Drops [Garamycin Ophthalmic Drops] 1 drop RIGHT EYE Q4 4 Days #1 opth.btl 08/01/18 Following Prescrptions Were Given to Patient: Gentamicin Ophthalmic Drops [Garamycin Ophthalmic Drops] 1 drop RIGHT EYE Q4 4 Days #1 opth.btl Primary Care Physician: Hua Mosher MD [Primary Care Provider] - Please follow up with your Primary Care Physician in: 3-5 days Disposition: Home Minutes spent on discharge:: 35 Patient Condition:: Good Medical Necessity - Tobacco Use Smoking Status: Current every day smoker Tobacco Use: Cigarettes Meaningful Use Info Meaningful Use Diagnoses (Choose all that apply): None applicable Code Visit OBSV E&M: 98450 Observation care discharge
[2018-08-01 09:45] VITALS: BP 124/64; PULSE 102; RESP 16; TEMP 36.7; O2SAT 93
[2018-08-01] MEDS: Pantoprazole Sodium 20 MG Tablet PO (09:51)
[2018-08-01] MEDS: Gabapentin 300 MG Capsule PO (09:51)
[2018-08-01] MEDS: Lisinopril 5 MG Tablet PO (09:51)
[2018-08-01] MEDS: Aspirin E.C. 81 MG Tablet PO (09:51)
[2018-08-01] MEDS: Furosemide 20 MG Tablet PO (09:51)
[2018-08-01] MEDS: Allopurinol 100 MG Tablet PO (09:57)
[2018-08-01] MEDS: LINAGLIPTIN 5 MG TABLET PO (09:57)
[2018-08-01] MEDS: DULoxetine Hcl 30 MG Capsule 90 MG PO (09:57)
== END 2018-08-01 09:26 | disposition home or self-care (01) ==
LOC: ED 23:06 → PCU 07-31 00:05
PROVIDERS: Admitting Provider Hospitalist; Emergency Provider Emergency Medicine; Family Provider Family Medicine; PCP Family Medicine; Visit Provider Family Medicine
DX: R07.89 Other chest pain (principal); R06.02 Shortness of breath; F17.200 Nicotine dependence, unspecified, uncomplicated; H10.9 Unspecified conjunctivitis; J44.9 Chronic obstructive pulmonary disease, unspecified; M10.9 Gout, unspecified; E78.5 Hyperlipidemia, unspecified; E11.22 Type 2 diabetes mellitus with diabetic chronic kidney disease; I12.9 Hypertensive chronic kidney disease with stage 1 through stage 4 chronic kidney disease, or unspecified chronic kidney disease; N18.3 Chronic kidney disease, stage 3 (moderate); M79.7 Fibromyalgia; E66.01 Morbid (severe) obesity due to excess calories; Z68.39 Body mass index [BMI] 39.0-39.9, adult; Z71.3 Dietary counseling and surveillance; G89.29 Other chronic pain; K21.9 Gastro-esophageal reflux disease without esophagitis; F41.9 Anxiety disorder, unspecified; F32.9 Major depressive disorder, single episode, unspecified; F17.210 Nicotine dependence, cigarettes, uncomplicated; Z79.899 Other long term (current) drug therapy; Z79.84 Long term (current) use of oral hypoglycemic drugs; Z79.52 Long term (current) use of systemic steroids; E11.42 Type 2 diabetes mellitus with diabetic polyneuropathy
CPT/HCPCS: 36415; 71045; 71275; 78452; 80048; 80061; 82962; 83880; 84484; 85025; 85379; 85610; 85730; 93005; 93017; 94640; 94660; 96372; 96374; 96375; 96376; 99218; 99285; A9500; J7030; Q9967; A4216; G0378; J2405; J2785

== ENCOUNTER → 2018-08-22 08:44 | Outpatient (CLI) | payer OTHER, SELFPAY ==
[2018-07-31 00:29] VITALS: BMI 39.6
[2018-08-22 10:26] LABS: Uric Acid 3.9 mg/dL (2.6-6.0)
== END ==
PROVIDERS: Family Provider Family Medicine; PCP Family Medicine; Visit Provider Family Medicine
DX: M10.9 Gout, unspecified (principal)
CPT/HCPCS: 36415; 84550

== ENCOUNTER → 2018-09-03 12:15 | Outpatient (CLI) | payer OTHER, SELFPAY ==
[2018-07-31 00:29] VITALS: BMI 39.6
--- NOTE | 2018-09-03 12:30 | RAD_ITS ---
STUDY: X-RAY - LEFT FOOT CLINICAL: Female, 58 years old. Pain and swelling. No injury TECHNIQUE: 3 view(s) of the foot. COMPARISON: None. FINDINGS: There is mild swelling of the dorsum of the ankle and a small plantar calcaneal spur. No fractures or dislocations are seen. RAD/Foot min 3 Views IMPRESSION: Mild swelling of the dorsum of the ankle. No fracture. A small plantar calcaneal spur Electronically Signed: Deon Mazariegos MD at 6:04 EST Tel , Service support ,
--- NOTE | 2018-09-03 12:35 | RAD_ITS ---
STUDY: X-RAY - LEFT ANKLE REASON FOR EXAM: Female, 58 years old. Pain, swelling TECHNIQUE: 3 view(s) of the ankle. COMPARISON: None. FINDINGS: Normal visualized distal tibia and fibula. Normal medial and lateral malleoli. Normal tibiotalar articulation and ankle mortise. Normal visualized talus and calcaneus. Tiny calcaneal spurring. The visualized subtalar, talonavicular, calcaneocuboid and tarsal articulations are normal. Soft tissue edema. RAD/Ankle min 3 Views IMPRESSION: Mild swelling without acute bony injury of the ankle. Electronically Signed: Damon Mendez DO at 0:00 EST Tel [phone], Service support ,
[2018-09-03 14:01] LABS: Erythrocyte Sedimentation Rate 41 mm/hr (0-30)
[2018-09-03 14:36] LABS: Rheumatoid Factor < 10.0 IU/mL (<15)
[2018-09-05 11:20] LABS: ANTINUCLEAR ANTIBODIES DIRECT Negative (Negative)
== END ==
PROVIDERS: Family Provider Family Medicine; PCP Family Medicine; Visit Provider Family Medicine
DX: M79.672 Pain in left foot (principal); I10 Essential (primary) hypertension
CPT/HCPCS: 36415; 73610; 73630; 85652; 86038; 86140; 86431

== ENCOUNTER → 2018-09-06 11:53 | Outpatient (CLI) | payer OTHER, SELFPAY ==
[2018-07-31 00:29] VITALS: BMI 39.6
[2018-09-06 14:44] LABS: Absolute Neutrophil Count 6.9 X10^3/uL (2.0-7.7); Basophil# 0.02 X10^3/uL; Basophil% 0.2 % (0-1); Eosinophil# 0.06 X10^3/uL; Eosinophils% 0.6 % (0-5); Hematocrit 43.3 % (37-47); Hemoglobin 13.4 g/dl (12.0-15.0); Mean Corp Hgb Conc 30.9 g/gl (32-36); Mean Corpuscular Hgb 31.4 pg (27.0-32.0); Mean Corpuscular Volume 101.4 fL (81-99); Mean Platelet Vol. 10.5 fl (6.2-12.0); Monocyte# 0.65 X10^3/uL; Monocyte% 6.9 % (0-10); Neutrophil # 6.86 X10^3/uL (2.7-7.7); Neutrophil % 72.7 % (47-70); Platelet Count 258 K/mm3 (150-450); RBC Distribution Width CV 16.2 % (11.6-14.6); RBC Distribution Width SD 60.4 fl (35.1-43.9); Red Blood Count 4.27 M/mm3 (4.2-5.4); White Blood Count 9.5 K/mm3 (4.4-11.0)
[2018-09-06 14:46] LABS: POSITIVE COUNT NO; POSITIVE DIFFERENTIAL NO; POSITIVE MORPHOLOGY NO
[2018-09-06 15:02] LABS: AST(SGOT) 14 U/L (15-37); Alanine Aminotransfer ALT/SGPT 22 U/L (13-56); Albumin, Serum 3.2 g/dL (3.2-5.0); Alkaline Phosphatase 98 U/L (45-117); Anion Gap 9 (5-15); BUN 21 mg/dL (7-18); BUN/Creat Ratio 19.1 RATIO (10-20); Chloride 111 mmol/L (98-107); EST Glomerular Filtration Rate 54 mL/min (>60); Est Glom Filt Rate - Afr Amer 66 mL/min (>60); Globulin 3.2 g/dL (2.2-4.2); Glucose 185 mg/dL (74-106); Potassium 3.4 mmol/L (3.5-5.1); Protein, Total 6.4 g/dL (6.4-8.2); Sodium Level 148 mmol/L (136-145)
== END ==
PROVIDERS: Family Provider Family Medicine; PCP Family Medicine
DX: E11.9 Type 2 diabetes mellitus without complications (principal)
CPT/HCPCS: 36415; 80053; 85025

== ENCOUNTER 2018-09-20 10:53 | Day surgery (SDC) | payer OTHER, SELFPAY ==
[2018-07-31 00:29] VITALS: BMI 39.6
--- NOTE | 2018-09-19 17:47 | HP.PCM_ITS ---
History and Physical Date of Admission: 09/20/18 I have an overactive bladder. HPI: MARGARITA JOSHI is a 58 year-old female established patient who is here for evaluation of their overactive bladder. 58 yo female here for f/u OAB, no improvement at all on 25 or 50 mg of Myrbetriq daily. Might have tried an anticholinergic in the past, doesn't recall name. Has chronic dry mouth. Very leery about trying an anticholinergic. Also has chronic constipation. Already soaking wet when she wakes in the night. Has some TARIK too but OAB sxs/UUI worse. Her voiding symptoms have not changed. She does have urgency. She does have problems getting to the bathroom in time after she has the urge to urinate. She does urinate more frequently than once every 4 hours in the daytime. She does urinate more frequently than once every 2 hours in the daytime. She is not satisfied with the wayshe is voiding. She does wear protective pads. ALLERGIES: None MEDICATIONS: Allopurinol Baclofen Cymbalta Gabapentin Glimepiride Lasix 20 mg tablet Lisinopril Simvastatin Tradjenta 5 mg tablet Trazodone Hcl 100 mg tablet Tylenol Vitamin D2 Zofran PSH: None NON- PSH: None PMH: Mixed incontinence - 07/15/2018 Nocturia Unspecified urinary incontinence Urgency of urination NON- PMH: Emphysema, unspecified Essential (primary) hypertension Gout, unspecified Major depressive disorder, single episode, unspecified Personal history of diseases of the ms sys and conn tiss Sleep apnea, unspecified FAMILY HISTORY: None SOCIAL HISTORY: Marital Status: Preferred Language: Maldivian; Race: White Current Smoking Status: Patient smokes. Tobacco Use Assessment Completed: Used Tobacco in last 30 days? Does not use smokeless tobacco. Does not drink anymore. Does not use drugs. REVIEW OF SYSTEMS: Constitutional: Patient denies fever and chills. Gastrointestinal: Patient denies abdominal pain and nausea/vomiting. VITAL SIGNS: 08/12/2018 03:18 PM Weight 243 lb / 110.22 kg Height 64 in / 162.56 cm BP 132/66 mmHg BMI 41.7 kg/m? MULTI-SYSTEM PHYSICAL EXAMINATION: Constitutional: Obese. No physical deformities. Normally developed. Good grooming. Neurologic / Psychiatric: Oriented to time, oriented to place, oriented to person. No depression, no anxiety, no agitation. PAST DATA REVIEWED: Source Of History: Patient Records Review: Previous Patient Records Urine Test Review: Urinalysis PROCEDURES: Notes: no urine ASSESSMENT: ICD-10 Details 1 : Overactive bladder - N32.81 2 Mixed incontinence - N39.46 PLAN: Medications Stop Meds: Myrbetriq 25 mg tablet, extended release 24 hr 1 tablet PO Daily samples provided Start: 07/15/2018 Stop: 08/12/2018 Discontinue: 08/12/2018 - Reason: The medication was ineffective. Document Letter(s): Created for Patient: Clinical Summary Notes: Failed Myrbetriq. Prefers to avoid anticholinergic. We again reviewed other therapies for OAB including PTNM, InterStim and Botox. She would like to proceed with Botox. She understands risk of retention, would be willing to do CIC if needed. Will schedule her with Dr Justice.
[2018-09-20 11:19] VITALS: BP 135/76; PULSE 116; RESP 20; TEMP 37.1; O2SAT 93; BMI 37.6
[2018-09-20 12:31] LABS: Bedside Glucose 173 mg/dL (70-110)
[2018-09-20] MEDS: Cefazolin 2 GM in 0.9% Normal Saline 100 ML IV (12:53)
[2018-09-20 13:25] VITALS: BP 113/86; BP 135/76; PULSE 106; RESP 16; TEMP 37.2; O2SAT 98
--- NOTE | 2018-09-20 13:27 | DCINST_ITS ---
Discharge Diet: Light diet - advance as tolerated Discharge Activity: Return to Normal Activity Allergies/Adverse Reactions: Allergies No Known Allergies Allergy (Verified 09/13/18 09:54) Medications to take at Discharge Cholecalciferol (VIT D3) [Vitamin D3] 1,000 unit PO DAILY 10/08/15 Lisinopril [Zestril] 5 mg PO DAILY 10/08/15 Simvastatin [Zocor] 20 mg PO QHS 10/08/15 Tizanidine HCl 4 mg PO QHS 10/08/15 Trazodone HCl 200 mg PO QHS 08/23/16 Linagliptin [Tradjenta] 5 mg PO DAILY 10/15/17 furosemide 20 mg tablet 20 mg PO BID tab 11/15/17 Gabapentin [Neurontin] 300 mg PO 0800,1200 11/28/17 Omeprazole Magnesium [Prilosec Otc] 20 mg PO DAILY 11/28/17 Oxycodone HCl/Acetaminophen [Percocet 5-325] 1 - 2 tab PO Q4H PRN PRN 5 Days #30 tab 04/17/18 Gabapentin [Neurontin] 600 mg PO QHS 04/20/18 Glimepiride 1 mg PO QHS 05/18/18 albuterol sulfate HFA 90 mcg/actuation aerosol inhaler 2 puff INHALATION Q6H PRN #1 device 06/18/18 duloxetine 60 mg capsule,delayed release 90 mg PO DAILY cap 06/18/18 Allopurinol 100 mg PO BID 07/30/18 Umeclidinium Brm/Vilanterol Tr [Anoro Ellipta 62.5-25 Mcg INH] 1 inh INHALATION DAILY 09/13/18 Ciprofloxacin [Cipro] 500 mg PO BID #10 tablet 09/20/18 Primary Care Physician: Hua Mosher MD [Primary Care Provider] - Test Results: Test results from this visit will be discussed in further detail at your follow- up appointment, if applicable. Please Follow Up With: Toro Justice MD When: please call to make an appointment.
--- NOTE | 2018-09-20 13:27 | PCM.OPRPT ---
Report of Operation Date of Procedure: 09/20/18 Pre-Operative Diagnosis: Urge incontinence and frequency urgency Post-Operative Diagnosis: Same Surgery/Procedure Performed:: Cystoscopy and injection of Botox 100 units into the bladder Description of Surgical Findings:: Indication: 58-year-old female has severe overactive bladder tried several medications without improvement she is failed medical therapy we talked about the options of InterStim therapy, peripheral neuromodulation, Botox therapy. Combination medical therapy after reviewing the options with her she wants to proceed with Botox injection she understands a small chance of developing urinary retention postop, infection, possibility may not be effective, possibly she may need a higher dose of Botox to be effective. 58-year-old female taken back to the operating room after smooth induction of general anesthesia anesthesia she was placed supine on the table and then dorsal lithotomy position the urethra and vaginal area were prepped and draped in usual sterile fashion went into the bladder with a 21 Persian rigid cystourethroscope she did have a minor cystocele the urethra was normal in length and normal anatomy inside the bladder very small contracted heavily trabeculated bladder, lots of trabeculation throughout the bladder. I then prepared the Botox injection 100 units were mixed with 10 cc of normal saline and then injected in 15 places in the back of the bladder to give all 100 units to the patient. After injection of Botox into the patient's bladder there was minimal bleeding spoke to the family explained to him what to expect afterwards if it does not work we may need a higher dose of Botox given her very trabeculated thickened bladder. She will follow-up in the office in about a month for checkup. Type of Anesthesia:: General Drains: none - Admit VTE Documentation VTE Present on Admission: No VTE Mechan Device Prophylaxis: SCD's
[2018-09-20 13:30] VITALS: BP 110/73; BP 135/76; PULSE 108; RESP 22; O2SAT 95
[2018-09-20 13:35] VITALS: BP 127/89; BP 135/76; PULSE 103; RESP 22; O2SAT 94
[2018-09-20 13:40] VITALS: BP 120/80; BP 135/76; PULSE 105; RESP 16; TEMP 37; O2SAT 95
[2018-09-20 14:05] VITALS: BP 135/76
== END 2018-09-20 14:13 | disposition home or self-care (01) ==
LOC: SDC 10:54 → AC 10:54
PROVIDERS: Family Provider Family Medicine; PCP Family Medicine; Referring Provider Urology; Visit Provider Urology
PROC: 3E0K8GC Introduction of Other Therapeutic Substance into Genitourinary Tract, Via Natural or Artificial Opening Endoscopic (ICD-10-PCS; CPT 52287; principal; 2018-09-20 12:50)
DX: N32.81 Overactive bladder (principal); N39.46 Mixed incontinence; K59.09 Other constipation; R68.2 Dry mouth, unspecified; I10 Essential (primary) hypertension; M10.9 Gout, unspecified; G47.30 Sleep apnea, unspecified; F17.200 Nicotine dependence, unspecified, uncomplicated; N32.89 Other specified disorders of bladder; F41.9 Anxiety disorder, unspecified; F32.9 Major depressive disorder, single episode, unspecified; E11.9 Type 2 diabetes mellitus without complications; Z79.899 Other long term (current) drug therapy; Z79.84 Long term (current) use of oral hypoglycemic drugs
CPT/HCPCS: 52287; 82962; J7120; J0585; J2405; J3490

== ENCOUNTER 2018-10-08 18:45 | Emergency (ER) | payer OTHER, SELFPAY ==
[2018-10-08 18:46] VITALS: BP 207/95; PULSE 123; RESP 18; TEMP 36.8; O2SAT 95; BMI 36.0
--- NOTE | 2018-10-08 18:49 | EKG12_ITS ---
Test Reason : Blood Pressure : / mmHG Vent. Rate : 114 BPM Atrial Rate : 114 BPM P-R Int : 152 ms QRS Dur : 088 ms QT Int : 356 ms P-R-T Axes : 057 036 055 degrees QTc Int : 490 ms Sinus tachycardia Possible Left atrial enlargement Low voltage QRS Borderline ECG Confirmed by LE BE, BON ([id number]), assignment desk editor REINIER PENDLETON ([id number]) on 10/15/2018 9:44:28 AM Referred By: Confirmed By:BON LUJAN MD
--- NOTE | 2018-10-08 19:28 | CM.ED ---
SOCIAL WORK NOTE PT PRESENTS TO ED AFTER OVERDOSE/SUICIDE ATTEMPT. DISCUSSED CASE WITH DR. SLOAN. PT WILL REQUIRE CRISIS EVALUATION. MET WITH PT'S SON, DAUGHTER, AND IN [place]. DISCUSSED ED PROCESS AND CRISIS EVALUATION. ALL VERBALIZE UNDERSTANDING AND FEEL PATIENT WOULD BENEFIT FROM INPATIENT PSYCH HOSPITALIZATION. REPORTS SHE IS UNSTABLE. PT WITH HX OF ANXIETY AND DEPRESSION AND IS PRESCRIBED MEDICATION. SON REPORTS PT HAS MADE THREATS OF SELF HARM WITH NO PRIOR HX OF ATTEMPT. EMOTIONAL SUPPORT PROVIDED. OWEN OBANDO, [employer]FORMING [employer], [employer].
[2018-10-08] MEDS: Ondansetron 4 MG/2 ML Vial IV (19:30)
[2018-10-08] MEDS: 0.9% Normal Saline 1,000 ML 999 ML IV (19:30)
[2018-10-08] MEDS: Activated Charcoal/Sorbitol 50 GM/240 ML BOT PO (19:36)
--- NOTE | 2018-10-08 19:48 | ED.DCSUM_ITS ---
- ER Visit Summary Date of Service: 10/08/18 Chief Complaint: Suicide attempt History of Present Illness: The patient is a 58 F presenting after intentional overdose. Patient took 8, 100 mg trazodone 1 hour prior to arrival. She has had nausea with no vomiting. States she has been depressed and was trying to kill herself. She states she has been depressed for awhile now. She called her friend who then called EMS and she was transported to the ED. Physical Examination: Vitals are stable. Patient is afebrile. Alert no acute distress. HEENT exam is unremarkable. Neck is supple. Lungs are clear and equal bilaterally. Heart is regular and tachycardic Abdomen is soft nontender nondistended. Extremities are unremarkable. Skin is warm and dry. No focal neurologic deficit. Depressed affect, suicidal ideation Remainder of exam is unremarkable. Emergency Department Course and Treatment: EKG is sinus tachycardia rate of 114. Patient was given IV fluids, Zofran. She was given activated charcoal. CBC, chemistries unremarkable other than potassium 2.6, glucose 162. Salicylate 3.9, Tylenol less than 2.0. Tox negative. Alcohol 14. Patient was given potassium replacement IV. She was observed in the ED. She remained hemodynamically stable. Discussed with the counseling center for evaluation. Disposition: Per counseling center Impression: Intentional overdose, suicidal ideation This note was generated with [employer] dictation software. It may contain incorrect words, spelling, and punctuation that were not noted in review of the chart prior to signing ED Disposition - Plan for ED Patient: Referrals: Hua Mosher MD [Primary Care Provider] -
[2018-10-08 19:53] LABS: Absolute Lymphocyte Count 1.59 X10^3/ul (0.83-4.51); Absolute Neutrophil Count 4.9 X10^3/uL (2.0-7.7); Basophil# 0.02 X10^3/uL; Basophil% 0.3 % (0-1); Eosinophil# 0.13 X10^3/uL; Eosinophils% 1.8 % (0-5); Hemoglobin 13.3 g/dl (12.0-15.0); Lymphocyte # 1.59 X10^3/ul (4.0); Lymphocyte % 21.8 % (19-41); Mean Corp Hgb Conc 31.7 g/gl (32-36); Mean Corpuscular Hgb 31.4 pg (27.0-32.0); Mean Corpuscular Volume 99.3 fL (81-99); Mean Platelet Vol. 10.7 fl (6.2-12.0); Monocyte# 0.65 X10^3/uL; Monocyte% 8.9 % (0-10); Neutrophil # 4.86 X10^3/uL (2.7-7.7); Neutrophil % 66.8 % (47-70); Platelet Count 193 K/mm3 (150-450); RBC Distribution Width CV 15.8 % (11.6-14.6); RBC Distribution Width SD 57.5 fl (35.1-43.9); Red Blood Count 4.23 M/mm3 (4.2-5.4); White Blood Count 7.3 K/mm3 (4.4-11.0)
[2018-10-08 19:55] LABS: POSITIVE COUNT NO; POSITIVE DIFFERENTIAL NO; POSITIVE MORPHOLOGY NO
[2018-10-08 20:08] LABS: Anion Gap 9 (5-15); BUN 5 mg/dL (7-18); BUN/Creat Ratio 5.4 RATIO (10-20); Calcium,Total 8.5 mg/dL (8.5-10.1); Chloride 109 mmol/L (98-107); Creatinine, Serum 0.93 mg/dL (0.55-1.02); EST Glomerular Filtration Rate 66 mL/min (>60); Est Glom Filt Rate - Afr Amer 80 mL/min (>60); Estimated Creatinine Clearance 52.15 ml/min; Glucose 162 mg/dL (74-106); Potassium 2.6 mmol/L (3.5-5.1); Sodium Level 143 mmol/L (136-145)
[2018-10-08 20:14] LABS: Acetaminophen (Tylenol) Level < 2.0 ug/mL (10.0-30.0); Salicylate 3.9 mg/dL (2.8-20.0)
--- NOTE | 2018-10-08 20:19 | NURSING ---
DR SLOAN NOTOFIED OF K2.6
[2018-10-08] MEDS: Potassium Chloride 10mEq/100mL 10 MEQ/100 ML IV.SOLN. 100 MEQ IV BOLUS ×3 (20:40→22:53)
[2018-10-08 20:41] VITALS: BP 151/98; PULSE 106; RESP 21; O2SAT 96
[2018-10-08 21:00] VITALS: BP 132/82; PULSE 110; RESP 28; O2SAT 95
[2018-10-08 21:06] LABS: Amphetamine Urine VISTA NEGATIVE (<1000 ng/mL); Barbiturate Urine VISTA NEGATIVE (< 200 ng/mL); Benzodiazepine Urine VISTA NEGATIVE (< 200 ng/mL); Cocaine Urine VISTA NEGATIVE (< 300 ng/mL); Ecstacy Urine VISTA NEGATIVE (< 500 ng/mL); Methadone Urine VISTA NEGATIVE (< 300 ng/mL); PCP Urine VISTA NEGATIVE (< 25 ng/mL); THC Urine VISTA NEGATIVE (< 50 ng/mL); Vista UDS pH Range 5
[2018-10-08 22:00] VITALS: BP 126/81; PULSE 105; RESP 24; O2SAT 95
--- NOTE | 2018-10-08 22:12 | ED.RN ---
REQUESTS TRANSPORT INFORMATION WHEN IT BECOMES AVAILABLE
--- NOTE | 2018-10-08 22:22 | ED.RN ---
CRISIS ON SITE, LEAVING STATING NO ONE IS MEDICALLY CLEARED
[2018-10-08 23:45] VITALS: BP 104/61; PULSE 68; O2SAT 93
--- NOTE | 2018-10-09 00:29 | ED.RN ---
CRISIS ON SITE
[2018-10-09 00:46] VITALS: BP 132/75; O2SAT 94
[2018-10-09] MEDS: Potassium Chloride 10mEq/100mL 10 MEQ/100 ML IV.SOLN. 100 MEQ IV BOLUS (00:52)
[2018-10-09 01:00] VITALS: BP 140/77; PULSE 101; RESP 16; O2SAT 95
[2018-10-09 02:13] VITALS: BP 128/78; PULSE 112; RESP 23; O2SAT 93
[2018-10-09 02:27] LABS: Potassium 3.5 mmol/L (3.5-5.1)
--- NOTE | 2018-10-09 02:57 | ED.RN ---
PER LAURA (CRISIS), THIS PT WAS ACCEPTED TO [facility], BY DR ABBASI, TO THE [address] UNIT. REPORT TO [phone]
[2018-10-09 03:23] VITALS: BP 123/95; PULSE 104; RESP 20; O2SAT 95
[2018-10-09 05:27] VITALS: BP 133/88; PULSE 116; RESP 17; O2SAT 90
== END 2018-10-09 06:07 ==
PROVIDERS: Emergency Provider Emergency Medicine; Family Provider Family Medicine; PCP Family Medicine
DX: F32.9 Major depressive disorder, single episode, unspecified (principal); T43.212A Poisoning by selective serotonin and norepinephrine reuptake inhibitors, intentional self-harm, initial encounter; R11.0 Nausea; Y92.9 Unspecified place or not applicable; E87.6 Hypokalemia; R00.0 Tachycardia, unspecified; J44.9 Chronic obstructive pulmonary disease, unspecified
CPT/HCPCS: 36415; 51702; 80048; 80307; 80320; 80329; 84132; 85025; 93005; 96361; 96365; 96366; 96375; 99285; J7030; A4216; G0480; J2405

== ENCOUNTER 2018-11-13 16:57 | Emergency (ER) | payer OTHER, MEDICAID, SELFPAY ==
[2018-11-13 16:57] VITALS: BP 128/75; PULSE 106; RESP 18; TEMP 36.3; BMI 35.6
--- NOTE | 2018-11-13 17:22 | ED.RN ---
PT STATES SHE IS GETTING HER PAIN MANAGEMENT INJECTIONS NEXT WEEK. ICE PACK PLACED BEHIND LEFT SIDE OF NECK.
--- NOTE | 2018-11-13 17:41 | ED.RN ---
FAMILY AND PT TOLD REGISTRATION THAT THE PT HAS NOT BEEN SEEN BY A DR OR NURSE YET. THIS WAS ALSO STATED TO ME PRIOR TO REGISTRATION GOING IN AND I EXPLAINED THAT I WAS A NURSE AND WAS TRYING TO GET HER CHECKED IN AND READY FOR THE DR. FAMILY AND PT ARE VERY INPATIENT AND STATED SHE HAS PAIN AND NEEDS SOMETHING NOW.
--- NOTE | 2018-11-13 18:12 | ED.RN ---
FAMILY VERY UPSET THAT A NURSE HASN'T BEEN IN AND HOUSEKEEPING HAD TO GET THE PATIENT A PILLOW AND BLANKET. AND WHERE IS THE DOCTOR? PER PATIENT, THEY JUST STUCK ME BACK HERE AND FORGOT ABOUT ME. THIS RN EXPLAINED THAT AGUILA, RN, WAS IN TO SEE PATIENT AND ALSO ASSISTED PT UP TO EARLIER. THIS RN OFFERED ANYTHING ADDITIONAL TO IMPROVE PT'S COMFORT OR EXPERIENCE. PT AND FAMILY DENIED. THEN DR MADISON CAME INTO ROOM TO ASSESS PT.
--- NOTE | 2018-11-13 18:35 | CT_ITS ---
STUDY: CT CERVICAL SPINE WITHOUT CONTRAST REASON FOR EXAM: Female, 58 years old. Fell and injured neck. Cervical surgery x2. RADIATION DOSAGE (If Supplied By Facility): CTDIvol = ( 25.02 ) mGy, DLP = ( 548.07 ) mGycm TECHNIQUE: High resolution transaxial imaging was performed without contrast material. Sagittal and coronal images were reconstructed. Individualized dose optimization techniques were used for this CT. COMPARISON: April 17, 2017, MR cervical spine July 18, 2016 and August 31, 2010 FINDINGS: Normal craniovertebral junction. Normal anterior atlantoaxial articulation. Normal odontoid process. Normal cervical lordosis. Normal vertebral bodies and posterior osseous elements. C2-3: Normal endplates. Normal disc height and morphology. Normal central canal and intervertebral neuroforamina. C3-4: Normal endplates. Normal disc height and morphology. Normal central canal and intervertebral neuroforamina. Anterior screws and disc prosthesis transfix the vertebral bodies. C4-5: Normal endplates. Normal disc height and morphology. Normal central canal and intervertebral neuroforamina. C5-6: Disc marginal osteophytes.. Decreased disc height and morphology. Normal central canal and intervertebral neuroforamina. C6-7: Anterior plate and screws with disc prosthesis. Central canal neural foramina patent. C7-T1: Normal endplates. Normal disc height and morphology. Normal central canal and intervertebral neuroforamina. Normal visualized soft tissue structures. CT/Spine Cervical without Contras IMPRESSION: No fracture. Postop changes as above. Electronically Signed: Shahid Boyd MD at 19:26 EDT , Service support ,
[2018-11-13] MEDS: HYDROcodone Bitartrate/Apap 5/325 Tablet PO (18:39)
[2018-11-13 18:40] VITALS: BP 146/88; PULSE 91; RESP 16
--- NOTE | 2018-11-13 18:43 | ED.VISSUMM ---
- ER Visit Summary Date of Service: 11/13/18 Chief Complaint: back and neck pain after fall History of Present Illness: The patient is a 58 F who presents for neck pain and lower back pain after a fall this morning. Patient states she was in her kitchen and her feet slipped out from under her. She fell, landing on her tailbone. She denies hitting her head. She had a jolt all the way up her back and into her neck. She is having severe neck pain and lower back/tailbone pain. Patient has a history of ruptured disks and metal plates in her neck. No history of osteoporosis or osteopenia. Patient is diabetic, has hypertension and high cholesterol. Patient denies any numbness or weakness in her extremities. Denies any other injuries other than to the back and neck. Patient takes gabapentin for pain. Physical Examination: Vital signs: afebrile, hemodynamically stable, no hypoxia on room air General: well nourished, well developed, in no distress Skin: warm, dry, no rash, no pallor HEENT: normocephalic and atraumatic; PERRL, EOMI, moist mucous membranes Cardiovascular: Mildly tachycardic rate and rhythm without murmurs, no peripheral edema, 2+ pulses all distal extremities Respiratory: No increased work of breathing, lungs are clear to auscultation bilaterally, no rales, rhonchi or wheezing Abdominal: Abdomen is soft, nontender with normoactive bowel sounds, no guarding or rebound, no masses Spine: Patient has exquisite tenderness to light touch of the midline cervical spine and paraspinal musculature. No obvious deformities or step-offs. Patient limiting movement secondary to pain. Patient has midline tenderness to the diffuse lumbar and sacral spine. No obvious deformities, step-offs to the cervical, lumbar or thoracic spine. Straight leg raise is negative bilaterally. MSK: Moves all extremities, no deformities, normal strength Neuro: Awake and alert, oriented ?4. No facial droop, sensation and motor function intact and symmetric Test Results: ] Clinical Impression(s) from Imaging Studies Cervical Spine CT 11/13/18 18:35 IMPRESSION: No fracture. Postop changes as above. Electronically Signed: Shahid Boyd MD at 19:26 EDT , Service support , Lumbar Spine X-Ray 11/13/18 18:57 IMPRESSION: Multilevel degenerative disc disease and pseudoarticulation at L5-S1 on the left. Electronically Signed: Shahid Boyd MD at 19:20 EDT , Service support , Medications Given Discontinued Medications Hydrocodone Bitart/Acetaminophen ([place] 5mg-325mg) 1 tablet PO X1 ONE Stop: 11/13/18 18:37 Last Admin: 11/13/18 18:39 Dose: 1 tablet Emergency Department Course and Treatment: Clinical Impression(s) from Imaging Studies Cervical Spine CT 11/13/18 18:35 IMPRESSION: No fracture. Postop changes as above. Electronically Signed: Shahid Boyd MD at 19:26 EDT , Service support , Lumbar Spine X-Ray 11/13/18 18:57 IMPRESSION: Multilevel degenerative disc disease and pseudoarticulation at L5-S1 on the left. Electronically Signed: Shahid Boyd MD at 19:20 EDT , Service support , Medications Given Discontinued Medications Hydrocodone Bitart/Acetaminophen ([place] 5mg-325mg) 1 tablet PO X1 ONE Stop: 11/13/18 18:37 Last Admin: 11/13/18 18:39 Dose: 1 tablet Treatment Plan: Patient was given [place] for her back and neck pain. Given patient's level of discomfort in her cervical spine, CT was performed that showed no evidence of a fracture or dislocation. X-ray of the lumbosacral spine showed no fractures or dislocations. On reevaluation, patient had improvement of her pain. She was able to flex and extend and rotate side to side her neck with only paraspinal pain on the left. Patient was given a prescription for Waterbury for severe pain and will use [id number] Tylenol for mild to moderate pain. She is to follow-up with her doctor if she continues to have any issues. Return precautions given. Discharged home in improved condition. Disposition: [] Impression: Cervical and lumbar strain, sacral contusion This note was generated with [employer] dictation software. It may contain incorrect words, spelling, and punctuation that were not noted in review of the chart prior to signing ED Disposition - Plan for ED Patient: Disposition: Home or Assisted Living Instructions: ED Sprain Strain Lumbar, ED Sprain Strain Neck Prescriptions: Hydrocodone Bitart/Apap 5-325 [Waterbury 5MG-325MG] 1 tab PO Q6H PRN PRN 3 Days #10 tab PRN Reason: Pain Referrals: Hua Mosher MD [Primary Care Provider] - 3-5 Days if not improving Additional Instructions: Please use Tylenol as needed for mild to moderate pain. You may use the Waterbury as needed for severe pain. Try applying ice to your neck and back for 15-20 minutes 3 times a day for the next 24-48 hours. After that you may switch to heat as needed to help with pain. If you have any worsening of your condition or any new concerning symptoms, please return immediately to the emergency department for another evaluation.
--- NOTE | 2018-11-13 18:57 | RAD_ITS ---
STUDY: X-RAY - LUMBAR SPINE REASON FOR EXAM: Female, 58 years old. Fell and injured low back TECHNIQUE: 5 view(s) of the lumbar spine were obtained. COMPARISON: MRI lumbar spine 03/20/2017 FINDINGS: Normal lumbar lordosis. There is no substantial scoliosis. There is a normal alignment of the vertebrae. Normal vertebral bodies and endplates. There is multi-level degenerative disc disease with multi-level disc space narrowing. Hemisacralization of L5 on the left with pseudoarticulation with S1. The soft tissue structures are unremarkable. RAD/L/S Spine Min 4 Views IMPRESSION: Multilevel degenerative disc disease and pseudoarticulation at L5-S1 on the left. Electronically Signed: Shahid Boyd MD at 19:20 EDT , Service support ,
[2018-11-13 19:50] VITALS: BP 146/88; PULSE 91; RESP 16
== END 2018-11-13 19:51 | disposition home or self-care (01) ==
PROVIDERS: Emergency Provider Emergency Medicine; Family Provider Family Medicine; PCP Family Medicine
DX: S16.1XXA Strain of muscle, fascia and tendon at neck level, initial encounter (principal); S39.012A Strain of muscle, fascia and tendon of lower back, initial encounter; S30.0XXA Contusion of lower back and pelvis, initial encounter; E11.9 Type 2 diabetes mellitus without complications; I10 Essential (primary) hypertension; W01.0XXA Fall on same level from slipping, tripping and stumbling without subsequent striking against object, initial encounter; Y93.89 Activity, other specified; Y92.000 Kitchen of unspecified non-institutional (private) residence as the place of occurrence of the external cause; Y99.8 Other external cause status
CPT/HCPCS: 72110; 72125; 99283

== ENCOUNTER → 2018-11-28 | Outpatient (CLI) | payer OTHER, MEDICAID, SELFPAY ==
[2018-11-13 16:57] VITALS: BMI 35.6
--- NOTE | 2018-11-28 13:00 | PFT ---
INTRODUCTION: The patient is a 58-year-old female that presents for pulmonary function studies secondary to a diagnosis of COPD. Respiratory therapy reports good patient effort. Bronchodilators were used during testing. INTERPRETATION: Forced expiration spirometry demonstrates no evidence of a large airways obstructive ventilatory defect. There was no significant response to aerosolized bronchodilators. Spirograms are of good quality and plateau normally. Body plethysmography was performed and reveals lung volumes to be within normal limits. Diffusing capacity by single breath CO is mildly reduced at 62% of predicted. When compared to previous pulmonary function studies dated November 2017 there has been a reduction in FVC by 15% and a reduction in FEV1 by 9%. IMPRESSION: Isolated mild reduction in diffusing capacity.
== END | disposition home or self-care (01) ==
LOC: PSN 10:59
PROVIDERS: Family Provider Family Medicine; PCP Family Medicine; Referring Provider Internal Medicine Critical Care Medicine; Visit Provider Internal Medicine Critical Care Medicine
DX: J44.9 Chronic obstructive pulmonary disease, unspecified (principal)
CPT/HCPCS: 94060; 94726; 94729

== ENCOUNTER → 2018-11-29 | Outpatient (CLI) | payer OTHER, MEDICAID, SELFPAY ==
[2018-11-13 16:57] VITALS: BMI 35.6
[2018-11-29 11:00] VITALS: PULSE 103; PULSE 109; PULSE 112; PULSE 113; PULSE 115; PULSE 116; O2SAT 94; O2SAT 95; O2SAT 96; O2SAT 97
--- NOTE | 2018-11-29 11:26 | CPS ---
Pt wears 2L @home prn. Pt got oxygen when she was discharged from [facility] in [place]. [employer] [facility] is her home care company.
--- NOTE | 2018-11-29 12:06 | WT_ITS ---
PSN 6 Minute Walk Test - 6 Minute Walk Test 6 Minute Walk Test: 6 Minute Walk Test PSN:6-Minute Walk Test Start: 11/29/18 11:24 Freq: Status: Active Protocol: [id number] Document 11/29/18 11:00 HG (Rec: 11/29/18 11:26 HG [id number]) 6 Minute Walk Test Date Performed 11/29/18 Time Performed 11:00 Height 5 ft 4 in Weight: 189 lb Weight in Pounds 189.[address]: Shawn Briggs Assistive device used: None Pre-test Oxygen Delivery Method Room Air Pulse Ox (%) 97 Pulse Rate (60-100 beats/min) 103 H Dyspnea Leland Scale (0-10) 0 Exertion Leland Scale (6-20) 6 1st minute Oxygen Delivery Method Room Air Pulse Ox (%) 95 Pulse Rate (60-100 beats/min) 113 H 2nd minute Oxygen Delivery Method Room Air Pulse Ox (%) 94 Pulse Rate (60-100 beats/min) 112 H 3rd minute Oxygen Delivery Method Room Air Pulse Ox (%) 94 Pulse Rate (60-100 beats/min) 113 H 4th minute Oxygen Delivery Method Room Air Pulse Ox (%) 94 Pulse Rate (60-100 beats/min) 116 H 5th minute Oxygen Delivery Method Room Air Pulse Ox (%) 96 Pulse Rate (60-100 beats/min) 115 H 6th minute Oxygen Delivery Method Room Air Pulse Ox (%) 95 Pulse Rate (60-100 beats/min) 115 H Post-test Oxygen Delivery Method Room Air Pulse Ox (%) 95 Pulse Rate (60-100 beats/min) 109 H Dyspnea Leland Scale (0-10) 0 Exertion Leland Scale (6-20) 6 Full Laps Walked 14 Partial Lap, Number of Tiles Walked 0 Total Distance Walked (ft) 826 11/29/18 11:26 Cardiopulmonary Services by Anne Castillo Pt wears 2L @home prn. Pt got oxygen when she was discharged from [facility] in [place]. [employer] [facility] is her home care company. Initialized on 11/29/18 11:26 - END OF NOTE - Interpretation Interpretation: The patient ambulated 826 feet over the course of 6 minutes beginning on room air without assistive devices or breaks. Pretesting oxygen saturation was noted to be 97% on room air. With ambulation, the felipe oxygen saturation was 94%. There was no significant exertional oxygen desaturation. - Recommendations Recommendations: There is no indication for the use of supplemental oxygen at this time.
== END | disposition home or self-care (01) ==
LOC: PSN 11:02
PROVIDERS: Family Provider Family Medicine; PCP Family Medicine; Referring Provider Internal Medicine Critical Care Medicine; Visit Provider Internal Medicine Critical Care Medicine
DX: J44.9 Chronic obstructive pulmonary disease, unspecified (principal)
CPT/HCPCS: 94618

== ENCOUNTER → 2018-12-23 | Outpatient (CLI) | payer MEDICAID, SELFPAY ==
[2018-12-05 13:01] VITALS: BMI 36.7
[2018-12-23 09:53] LABS: Erythrocyte Sedimentation Rate 38 mm/hr (0-30)
[2018-12-23 09:58] LABS: Absolute Lymphocyte Count 1.28 X10^3/ul (0.83-4.51); Absolute Neutrophil Count 4.3 X10^3/uL (2.0-7.7); Basophil# 0.03 X10^3/uL; Basophil% 0.5 % (0-1); Eosinophil# 0.47 X10^3/uL; Eosinophils% 7.1 % (0-5); Hematocrit 42.9 % (37-47); Hemoglobin 14.2 g/dl (12.0-15.0); Lymphocyte # 1.28 X10^3/ul (4.0); Lymphocyte % 19.3 % (19-41); Mean Corp Hgb Conc 33.1 g/gl (32-36); Mean Corpuscular Volume 96.6 fL (81-99); Mean Platelet Vol. 10.4 fl (6.2-12.0); Monocyte# 0.53 X10^3/uL; Neutrophil # 4.29 X10^3/uL (2.7-7.7); Neutrophil % 64.8 % (47-70); Platelet Count 264 K/mm3 (150-450); RBC Distribution Width CV 15.9 % (11.6-14.6); RBC Distribution Width SD 54.3 fl (35.1-43.9); Red Blood Count 4.44 M/mm3 (4.2-5.4); White Blood Count 6.6 K/mm3 (4.4-11.0)
[2018-12-23 10:01] LABS: POSITIVE COUNT NO; POSITIVE DIFFERENTIAL NO; POSITIVE MORPHOLOGY NO
[2018-12-23 11:26] LABS: ALB/GLOB Ratio 0.8 RATIO (0.9-2.4); AST(SGOT) 15 U/L (15-37); Alanine Aminotransfer ALT/SGPT 20 U/L (13-56); Albumin, Serum 2.9 g/dL (3.2-5.0); Alkaline Phosphatase 112 U/L (45-117); Anion Gap 7 (5-15); BUN 12 mg/dL (7-18); BUN/Creat Ratio 8.8 RATIO (10-20); Calcium,Total 8.8 mg/dL (8.5-10.1); Chloride 105 mmol/L (98-107); Creatinine, Serum 1.37 mg/dL (0.55-1.02); EST Glomerular Filtration Rate 42 mL/min (>60); Est Glom Filt Rate - Afr Amer 51 mL/min (>60); Globulin 3.5 g/dL (2.2-4.2); Glucose 243 mg/dL (74-106); Potassium 3.1 mmol/L (3.5-5.1); Protein, Total 6.4 g/dL (6.4-8.2); Rheumatoid Factor < 10.0 IU/mL (<15); Sodium Level 143 mmol/L (136-145); Uric Acid 3.7 mg/dL (2.6-6.0)
[2018-12-26 15:35] LABS: CCP IgG Antibodies 6 units (0-19); HEPATITIS B SURFACE AG Negative (Negative); HLA B27 Negative (.); Hep B Surface Antibodies Non Reactive (.); Hep C Antibodies 0.1 s/co ratio (0.0-0.9)
== END | disposition home or self-care (01) ==
LOC: MFPLAB 09:01
PROVIDERS: Family Provider Family Medicine; PCP Family Medicine; Visit Provider Family Medicine
DX: M06.4 Inflammatory polyarthropathy (principal); M10.9 Gout, unspecified; M47.892 Other spondylosis, cervical region; M47.897 Other spondylosis, lumbosacral region
CPT/HCPCS: 36415; 80053; 81374; 84550; 85025; 85652; 86140; 86200; 86431; 86706; 86803; 87340

== ENCOUNTER → 2018-12-24 | Outpatient (CLI) | payer OTHER, MEDICAID, SELFPAY ==
[2018-12-05 13:01] VITALS: BMI 36.7
--- NOTE | 2018-12-24 12:08 | RAD_ITS ---
STUDY: X-RAY CHEST REASON FOR EXAM: Female, 58 years old. Leg edema TECHNIQUE: PA and lateral views of the chest. COMPARISON: July 30, 2018 chest x-ray FINDINGS: There is a cervical spine fusion. Interstitial markings are mildly prominent. Findings are stable when compared to prior study. There is no demonstrated pleural abnormality. Normal size heart. Normal mediastinum and praveen. Normal visualized pulmonary arteries. There is atherosclerotic calcification of the aortic arch with tortuosity. Normal visualized thoracic spine. Normal visualized ribs, clavicles, and shoulders. There is no demonstrated abnormality of the visualized soft tissue structures of the upper abdomen. RAD/Chest PA and Lateral IMPRESSION: Stable lung markings no evidence of acute focal infiltrate. Electronically Signed: Ronda Mann MD at 19:51 EDT Tel , Service support ,
[2018-12-24 14:17] LABS: Iron 42 ug/dL (50-170); Prealbumin 16.9 mg/dL (20.0-40.0)
[2018-12-24 14:32] LABS: BNP,B-Type NATRIURETIC PEPTIDE 72.7 pg/mL (0-100)
== END | disposition home or self-care (01) ==
LOC: MTLAB 12:06
PROVIDERS: Family Provider Family Medicine; PCP Family Medicine; Referring Provider Family Medicine; Visit Provider Family Medicine
DX: R60.0 Localized edema (principal)
CPT/HCPCS: 71046; 83540; 83880; 84134

== ENCOUNTER → 2019-01-13 | Outpatient (CLI) | payer MEDICAID, SELFPAY ==
[2018-12-05 13:01] VITALS: BMI 36.7
--- NOTE | 2019-01-13 13:04 | ECHOCS_ITS ---
Reason For Study: Edema Procedure This was a 2D Doppler, Color Flow transthoracic echocardiogram. The study was technically difficult. Contrast injection was performed. Exam performed in department. Left Ventricle Normal LV size. Left ventricular systolic function is normal. The estimated ejection fraction is 70 %. Stage 1 diastolic dysfunction. No regional wall motion abnormalities noted. Right Ventricle Normal RV size. Normal systolic function. Atria Normal left atrium. Normal right atrium. Mitral Valve Normal mitral valve. Tricuspid Valve Normal tricuspid valve. Aortic Valve The aortic valve is not well visualized. Great Vessels Normal aortic root. The pulmonary artery is normal size. Normal inferior vena cava. Pericardium/Pleural No pericardial effusion. Medication 22 gauge I.V. with prn adaptor inserted into right arm. Diluted definity 3ml given slow IV push to enhance endocardial definition. MMode/2D Measurements & Calculations LVIDd: 3.9 cm IVSd: 1.0 cm Ao root diam: 3.3 cm LVIDs: 2.6 cm LVPWd: 0.78 cm RVDd: 3.3 cm FS: 34.1 % LAV(MOD-bp): 34.9 ml LA A4 area: 14.5 cm2 RA A4 area: 12.7 cm2 LAV(MOD-bp) Indexed: 18.3 ml/m2 LAV(MOD-sp2): 34.2 ml LAV(MOD-sp4): 34.6 ml Time Measurements MV dec time: 0.27 sec Doppler Measurements & Calculations MV E max daniel: 78.5 cm/sec Lat Peak E' Daniel: 13.8 cm/sec Med Peak E' Daniel: 10.7 cm/sec MV A max daniel: 74.7 cm/sec E/E' lat: 5.7 E/E' med: 7.3 MV E/A: 1.1 MV V2 max: 85.4 cm/sec MV P1/2t max daniel: 84.1 cm/sec Ao V2 max: 152.8 cm/sec MV max P.9 mmHg MV P1/2t: 74.8 msec Ao max P.3 mmHg MV V2 mean: 52.9 cm/sec MV dec slope: 329.3 cm/sec2 MV mean P.4 mmHg MVA(P1/2t): 2.9 cm2 MV V2 VTI: 18.6 cm LV V1 max: 109.5 cm/sec PA V2 max: 110.7 cm/sec TR max daniel: 136.1 cm/sec LV V1 max P.8 mmHg TR max P.4 mmHg Interpretation Summary Normal LV size. Left ventricular systolic function is normal. The estimated ejection fraction is 70 %. Stage 1 diastolic dysfunction. Contrast injection was performed. Ordering Physician: Kolton Mosher Referring Physician: Kolton Mosher Performed By: Jarrod Richter RCS
== END | disposition home or self-care (01) ==
LOC: CVS 13:03
PROVIDERS: Family Provider Family Medicine; PCP Family Medicine; Referring Provider Family Medicine; Visit Provider Family Medicine
DX: R60.0 Localized edema (principal)
CPT/HCPCS: 93306; Q9957; A4216; C8929

== ENCOUNTER → 2019-01-27 | Outpatient (CLI) | payer MEDICAID, SELFPAY ==
[2018-12-05 13:01] VITALS: BMI 36.7
[2019-01-27 17:31] LABS: Hematocrit 43.2 % (37-47); Hemoglobin 13.8 g/dl (12.0-15.0); Mean Corp Hgb Conc 31.9 g/gl (32-36); Mean Corpuscular Hgb 32.2 pg (27.0-32.0); Mean Corpuscular Volume 100.7 fL (81-99); Mean Platelet Vol. 10.3 fl (6.2-12.0); Platelet Count 227 K/mm3 (150-450); RBC Distribution Width CV 16.2 % (11.6-14.6); RBC Distribution Width SD 59.9 fl (35.1-43.9); Red Blood Count 4.29 M/mm3 (4.2-5.4); Scan Indicated on CBC? Y/N NO; White Blood Count 8.4 K/mm3 (4.4-11.0)
[2019-01-27 17:53] LABS: ALB/GLOB Ratio 0.9 RATIO (0.9-2.4); AST(SGOT) 12 U/L (15-37); Alanine Aminotransfer ALT/SGPT 15 U/L (13-56); Albumin, Serum 3.2 g/dL (3.2-5.0); Alkaline Phosphatase 111 U/L (45-117); Anion Gap 8 (5-15); BUN 12 mg/dL (7-18); BUN/Creat Ratio 9.7 RATIO (10-20); Calcium,Total 8.7 mg/dL (8.5-10.1); Chloride 106 mmol/L (98-107); Creatinine, Serum 1.24 mg/dL (0.55-1.02); EST Glomerular Filtration Rate 47 mL/min (>60); Est Glom Filt Rate - Afr Amer 57 mL/min (>60); Globulin 3.4 g/dL (2.2-4.2); Glucose 188 mg/dL (74-106); Iron 54 ug/dL (50-170); Prealbumin 18.6 mg/dL (20.0-40.0); Protein, Total 6.6 g/dL (6.4-8.2); Sodium Level 146 mmol/L (136-145); Thyroid Stim Hormone (TSH) 0.65 uIU/mL (0.358-3.74)
== END | disposition home or self-care (01) ==
LOC: MFPLAB 15:19
PROVIDERS: Family Provider Family Medicine; PCP Family Medicine; Visit Provider Family Medicine
DX: D64.9 Anemia, unspecified (principal); R60.0 Localized edema
CPT/HCPCS: 36415; 80053; 83540; 84134; 84443; 85027

== ENCOUNTER → 2019-02-13 | Outpatient (CLI) | payer MEDICAID, SELFPAY ==
[2018-12-05 13:01] VITALS: BMI 36.7
[2019-02-13 12:50] LABS: Anion Gap 4 (5-15); BUN 16 mg/dL (7-18); BUN/Creat Ratio 12.9 RATIO (10-20); Calcium,Total 9.2 mg/dL (8.5-10.1); Chloride 103 mmol/L (98-107); Creatinine, Serum 1.24 mg/dL (0.55-1.02); EST Glomerular Filtration Rate 47 mL/min (>60); Est Glom Filt Rate - Afr Amer 57 mL/min (>60); Glucose 161 mg/dL (74-106); Potassium 3.6 mmol/L (3.5-5.1); Sodium Level 142 mmol/L (136-145)
== END | disposition home or self-care (01) ==
LOC: MFPLAB 10:38
PROVIDERS: Family Provider Family Medicine; PCP Family Medicine; Visit Provider Family Medicine
DX: R60.0 Localized edema (principal)
CPT/HCPCS: 36415; 80048

== ENCOUNTER → 2019-04-29 12:02 | Outpatient (CLI) | payer MEDICAID, SELFPAY ==
[2018-12-05 13:01] VITALS: BMI 36.7
[2019-04-29 15:40] LABS: Anion Gap 3 (5-15); BUN 13 mg/dL (7-18); Chloride 104 mmol/L (98-107); Creatinine, Serum 1.18 mg/dL (0.55-1.02); EST Glomerular Filtration Rate 50 mL/min (>60); Est Glom Filt Rate - Afr Amer 60 mL/min (>60); Glucose 107 mg/dL (74-106); Potassium 3.2 mmol/L (3.5-5.1); Prealbumin 22.4 mg/dL (20.0-40.0); Sodium Level 143 mmol/L (136-145)
== END ==
PROVIDERS: Family Provider Family Medicine; PCP Family Medicine; Referring Provider Family Medicine; Visit Provider Family Medicine
DX: N18.9 Chronic kidney disease, unspecified (principal); R60.0 Localized edema
CPT/HCPCS: 36415; 80048; 84134

== ENCOUNTER → 2019-06-23 12:27 | Outpatient (CLI) | payer OTHER, SELFPAY ==
[2019-06-17 10:47] VITALS: BMI 33.6
--- NOTE | 2019-06-23 12:31 | RAD_ITS ---
STUDY: X-RAY - CERVICAL SPINE REASON FOR EXAM: Female, 59 years old. Pain. TECHNIQUE: 3 view(s) of the cervical spine were obtained. COMPARISON: 04/17/2017. FINDINGS: There are degenerative changes of the anterior atlantoaxial articulation. Normal odontoid process. The patient is status post anterior fusion at C3-C4 and C6-C7. Normal cervical lordosis. There is multi-level endplate spondylosis. There is multi-level degenerative disc disease with multilevel disc space narrowing. This is more significant at C5-C6. Multilevel bilateral facet hypertrophic changes noted. The soft tissue structures are unremarkable. There is no demonstrated fracture of the cervical spine. RAD/Cerv Spine 2 or 3 Views IMPRESSION: Postoperative changes as described above with no distinct fracture or subluxation seen. Electronically Signed: Candace Delacruz MD at 2:09 EST , Service support ,
== END ==
PROVIDERS: Family Provider Family Medicine; PCP Family Medicine; Referring Provider Anesthesiology Pain Medicine; Visit Provider Anesthesiology Pain Medicine
DX: M50.30 Other cervical disc degeneration, unspecified cervical region (principal)
CPT/HCPCS: 72040

== ENCOUNTER 2019-07-09 14:25 | Emergency (ER) | payer OTHER, SELFPAY ==
[2019-06-17 10:47] VITALS: BMI 33.6
[2019-07-09 14:26] VITALS: BP 111/68; PULSE 89; RESP 17; TEMP 36.8; O2SAT 92; BMI 33.2
--- NOTE | 2019-07-09 15:05 | CT_ITS ---
STUDY: CT BRAIN WITHOUT CONTRAST REASON FOR EXAM: Female, 59 years old. Possible acute head injury. Recurrent falling. RADIATION DOSAGE (If Supplied By Facility): CTDIvol = ( 44.99 ) mGy, DLP = ( 762.36 ) mGycm TECHNIQUE: Transaxial CT imaging of the brain was performed without administration of intravenous contrast material. Individualized dose optimization techniques were used for this CT. COMPARISON: No relevant priors. FINDINGS: Normal soft tissue structures. Normal calvarium. Normal size ventricles and extra-axial spaces for the patient's age. Normal white matter tracts of the cerebral hemispheres. Normal basal ganglia and thalami. Normal brainstem. Normal cerebellum. There is no intracranial hemorrhage. There are no findings of an acute ischemic infarction. Normal visualized paranasal sinuses. CT/Brain/Head without Contrast IMPRESSION: Normal unenhanced CT scan of the brain. Electronically Signed: Tawana Hanks MD at 16:19 EST , Service support ,
--- NOTE | 2019-07-09 15:08 | ED.VIS.GEN ---
History of Present Illness Chief Complaint: Constipation Informant: Patient, Family Onset: Weeks - 1.5 to 2 weeks regarding falls, significant weight loss over the past month or 2 appetite, multiple other issues which will be described in HPI Context: Sudden Onset Timing: Intermittent Quality: Falls Location: Home Current Severity: - - Not applicable Maximum Severity: - - Unable to quantitate Worsened by: Nothing Relieved by: Nothing Associated Symptoms: Decreased appetite, weight loss, constipation Narrative: Patient is a middle-aged woman with multiple medical problems who presents because of no bowel movements in 1.5 weeks and frequent falls over the past 2 weeks. Patient is status post hiatal hernia repair x2 and cholecystectomy. States she is passing gas. She does report nausea and vomiting which is a chronic issue for the past year. She denies fever, chills or night sweats. She does report weight loss because of lack of appetite. She denies visual, ocular auditory symptoms. She denies cardiac or respiratory symptoms. She denies abdominal pain. She does report chronic nausea vomiting and no bowel movement x1.5 weeks. She denies urologic symptoms. She is on no anticoagulant. She denies paresthesia, anesthesia motors. She has difficulty with swallowing since neck surgery 2 to 3 years ago. She had a swallow evaluation which revealed no abnormality. Patient was asked if she has been in a tanning bed or anywhere where she was suntanning and she replied no Prior similar symptoms: Yes Recent Illness/Hospitalization: No - Past Medical History (1) Anxiety Status: Chronic (2) CKD (chronic kidney disease) stage 3, GFR 30-59 ml/min Status: Chronic (3) COPD (chronic obstructive pulmonary disease) Status: Chronic (4) Cervical radiculitis Status: Chronic (5) Cervical vertebral fusion Status: Chronic (6) Constipation Status: Chronic (7) Diabetes mellitus, type II Status: Chronic (8) Diverticulosis Status: Chronic (9) Gastro-esophageal reflux disease without esophagitis Status: Chronic (10) Hyperlipidemia Status: Chronic (11) Ischemic colitis Status: Chronic (12) Peripheral neuropathy Status: Chronic (13) gouty tenosynovitis Status: Chronic (14) Gallbladder sludge Status: Resolved Past Medical History - Allergies and Home Meds Allergies/Adverse Reactions: Allergies No Known Allergies Allergy (Verified 07/09/19 14:26) Primary Care Physician: Hua Mosher MD [Primary Care Provider] - Prior records reviewed: Yes Surgical History: cholecystectomy - 04/17/2018, - - Cervical spine surgery, BLTL, L shoulder surgery, R heel spur removal, hiatal hernia repair with mesh Lives: Alone Smoking Status: Current every day smoker Alcohol: Rare Drugs: None - Family History Maternal Family History: Family History (Last Reviewed 12/05/18 @ 13:07 by Betzy Miramontes) Mother Hypertension Family History: Reports: Diabetes, Hypertension Paternal Family History: Family History (Last Reviewed 12/05/18 @ 13:07 by Betzy Miramontes) Mother Hypertension Family History: Reports: Cancer - Father w/ lung CA, metastatic, 70s., Diabetes, Heart Disease - He reported that his father had heart attack in his late 60s., Hypertension Review of Systems General: Reports: Malaise, Weight loss. Denies: Chills, Fever, Subjective, Sweats Eyes: Denies: Visual changes - bilaterally, Blurred Vision - bilaterally, Diplopia ENT: Denies: Bilateral ear pain, Rhinorrhea, Sore throat Cardiovascular: Denies: Chest pain, Palpitations, Heart racing Respiratory: Denies: Dyspnea, Cough, Dyspnea on exertion Gastrointestinal: Reports: Nausea, Vomiting, Constipation. Denies: Abdominal pain, Diarrhea, Melena, Hematochezia Genitourinary: Denies: Dysuria, Hematuria, Frequency Musculoskeletal: Reports: Neck pain. Denies: Myalgias, Arthralgias, Back pain, Swelling, Extremity Pain Skin: Reports: Wounds - Has multiple bruises to the torso and lower extremities. Denies: Rash Neurological: Denies: Headache, Weakness, Numbness Endocrine: Denies: Polyuria, Polydipsia Hematologic: Denies: Easy bruising, Easy bleeding Physical Exam Vital Signs/Narrative: Vital Signs Temp Pulse Resp BP Pulse Ox 07/09/19 14:26 98.2 F 89 17 111/68 92 Inital Vital Signs reviewed: Yes General: Well nourished, Well developed, No Acute Distress Head: Normocephalic, Trauma, Tenderness, - - There is no clinical findings of basal skull fracture.. Negative for: Atraumatic Eyes: Perrl, EOMI, - - There is no subconjunctival hemorrhage.. Negative for: Pale conjunctiva, Scleral icterus ENT: Moist mucous membranes, No rhinorrhea, TM's clear Neck: Supple, Nontender, No lymphadenopathy, No JVD Cardiovascular: Regular rate, Regular rhythm, No murmurs, Normal S1, Normal S2 Respiratory: No distress, CTA bilaterally, Chest nontender Abdomen: Soft, Nontender, Nondistended, Normal bowel sounds, No masses Rectal: - - There is stool in the rectal vault. Stool is brown in color. Back: Nontender, Normal Inspection. Negative for: CVA tenderness, Spinal tenderness Extremities: Nontender, Edema Skin: Normal color, No rash, Trauma. Negative for: Cyanosis, Diaphoresis, Jaundice Neurological: Alert, Oriented x3, Cranial nerves II-XII grossly intact, Normal Strength, Normal Sensation, Normal DTR - There is no clonus or Babinski sign., - - GCS is 15. Psychological: Depressed Diagnostic/Tx/Re-eval Chest X-Ray - ED: Read by ED Physician, - - Portion of 3 view abdominal series reveals chronic changes. Cardiac size and silhouette are unremarkable. There are no acute osseous structure abnormalities noted. There are no masses or nodules noted. Abdominal portion reveals signal amount of fecal stasis throughout the colon. CT of the head was reviewed by me and reveals no acute pathology. Awaiting formal read. Time of my interpretation 1605. 07/09/19 15:05 Brain/Head without Contrast [CT] Stat 07/09/19 15:45 Acute Abdomen Inc Chest [RAD] Stat Laboratory Results 07/09/19 07/09/19 07/09/19 15:20 15:20 15:20 WBC 8.7 RBC 4.60 Hgb 15.7 H Hct 46.7 MCV 101.5 H MCH 34.1 H MCHC 33.6 RDW Std Deviation 55.0 H RDW Coeff of Suki 14.7 H Plt Count 217 MPV 9.8 Immature Gran % (Auto) 0.700 Neut % (Auto) 69.7 Lymph % (Auto) 19.9 Villalba % (Auto) 8.2 Eos % (Auto) 1.2 Baso % (Auto) 0.3 Absolute Neuts (auto) 6.0 Absolute Lymphs (auto) 1.72 Nucleated RBC % 0 PT 13.7 INR 1.1 APTT 27.9 Sodium 139 Potassium 2.2 L* Chloride 94 L Carbon Dioxide 43.0 H Anion Gap 2 L BUN 19 H Creatinine 1.30 H Estim Creat Clear Calc 33.47 Est GFR (MDRD) Af Amer 54 L Est GFR (MDRD) Non-Af 45 L BUN/Creatinine Ratio 14.6 Glucose 133 H Calcium 9.0 Total Bilirubin 0.50 AST 68 H ALT 62 H Alkaline Phosphatase 98 Total Protein 6.8 Albumin 3.3 Globulin 3.5 Albumin/Globulin Ratio 0.9 Cortisol 07/09/19 15:20 WBC RBC Hgb Hct MCV MCH MCHC RDW Std Deviation RDW Coeff of Suki Plt Count MPV Immature Gran % (Auto) Neut % (Auto) Lymph % (Auto) Villalba % (Auto) Eos % (Auto) Baso % (Auto) Absolute Neuts (auto) Absolute Lymphs (auto) Nucleated RBC % PT INR APTT Sodium Potassium Chloride Carbon Dioxide Anion Gap BUN Creatinine Estim Creat Clear Calc Est GFR (MDRD) Af Amer Est GFR (MDRD) Non-Af BUN/Creatinine Ratio Glucose Calcium Total Bilirubin AST ALT Alkaline Phosphatase Total Protein Albumin Globulin Albumin/Globulin Ratio Cortisol 7.00 Potassium is 2.2. Will administer p.o. potassium chloride. FINDINGS: Normal soft tissue structures. Normal calvarium. Normal size ventricles and extra-axial spaces for the patient's age. Normal white matter tracts of the cerebral hemispheres. Normal basal ganglia and thalami. Normal brainstem. Normal cerebellum. There is no intracranial hemorrhage. There are no findings of an acute ischemic infarction. Normal visualized paranasal sinuses. CT/Brain/Head without Contrast IMPRESSION: Normal unenhanced CT scan of the brain. Electronically Signed: Tawana Hanks MD at 16:19 EST RAD/Acute Abdomen Inc Chest IMPRESSION: No acute cardiopulmonary findings. Negative for consolidation, focal atelectasis, cardiomegaly or pleural effusion. Substantial stool present throughout the colon without other acute abdominal findings. Electronically Signed: Tawana Hanks MD at 16:13 EST - Medical Decision Making History of frequent falls head trauma will obtain CT of the head to evaluate for intracranial bleed. Abdominal series was obtained since patient not had a bowel movement in 1.5 weeks to assess for obstipation versus other causes. Electrode panel was obtained to assess for hyponatremia hyperkalemia since there is a concern for Meridian's disease since patient has a 10 with no sapp lines and is not been a tanning. This may be the cause of her falls 2. Will obtain orthostatic vital signs. CBC was obtained to assess white count as well as H&H. Spoke with patient and daughter she feels safe at home and feels comfortable going home if she does not meet criteria for admission. She received 40 mg potassium solution every hour x3 total doses. Patient was discharged to home with appropriate home-going instruction and prescription for liquid potassium since she is not absorbing the extended release potassium that is in the wax matrix. ED Disposition - Plan for ED Patient: Disposition: Home or Assisted Living Diagnosis: Hypokalemia, Obstipation, Diabetes mellitus, type II Instructions: CONSTIPATION (Adult), Hypokalemia Prescriptions: Potassium Chl Soln 20 meq PO BID #[id number] [facility] Prescription Printed Referrals: Hua Mosher MD [Primary Care Provider] - 3-5 Days Additional Instructions: You need to follow-up with Dr. Thacker in 3 to 5 days to have your potassium level rechecked. Tomorrow morning drink 10 ounces of mag citrate. 4 hours after drinking mag citrate drink 1 glass of MiraLAX. Continue to drink a glass of MiraLAX every hour until you have results.
[2019-07-09 15:44] LABS: Absolute Lymphocyte Count 1.72 X10^3/uL (0.83-4.51); Basophil# 0.03 X10^3/uL; Basophil% 0.3 % (0-1); Eosinophils% 1.2 % (0-5); Hematocrit 46.7 % (37-47); Hemoglobin 15.7 g/dL (12.0-15.0); Lymphocyte # 1.72 X10^3/ul (4.0); Lymphocyte % 19.9 % (19-41); Mean Corp Hgb Conc 33.6 g/dL (32-36); Mean Corpuscular Hgb 34.1 pg (27.0-32.0); Mean Corpuscular Volume 101.5 fL (81-99); Mean Platelet Vol. 9.8 fl (6.2-12.0); Monocyte# 0.71 X10^3/uL; Monocyte% 8.2 % (0-10); NRBC Flagged by Analyzer 0 % (0-5); Neutrophil # 6.03 X10^3/uL (2.7-7.7); Neutrophil % 69.7 % (47-70); Platelet Count 217 K/mm3 (150-450); RBC Distribution Width CV 14.7 % (11.6-14.6); White Blood Count 8.7 K/mm3 (4.4-11.0)
--- NOTE | 2019-07-09 15:45 | RAD_ITS ---
STUDY: X-RAY - ACUTE ABDOMINAL SERIES REASON FOR EXAM: Female, 59 years old. No recent bowel movement. Multiple falls in the past week. History of COPD, cholecystectomy, GERD and hiatal hernia surgery. TECHNIQUE: Single view of the chest. Supine and upright, 2 view(s) of the abdomen were obtained. COMPARISON: None. FINDINGS: The lungs are clear and expanded. Bullous right costophrenic angle. Negative for major consolidation, focal atelectasis or a substantial pleural effusion. Normal size heart. Normal mediastinum and praveen. Normal visualized pulmonary arteries. There is atherosclerotic calcification of the aortic arch with tortuosity. Nondistended stomach and small bowel. Substantial stool present throughout the colon to the level of the lower colon. Stool on the left looks well formed. negative for free air. Negative for gross organomegaly, abdominal or pelvic calcifications. Moderate degenerative changes of the lumbar spine with a slight levocurvature. Surgical clips of the medial left upper quadrant. Anterior cervical spine fusion hardware included in the [id number]. RAD/Acute Abdomen Inc Chest IMPRESSION: No acute cardiopulmonary findings. Negative for consolidation, focal atelectasis, cardiomegaly or pleural effusion. Substantial stool present throughout the colon without other acute abdominal findings. Electronically Signed: Tawana Hanks MD at 16:13 EST , Service support ,
[2019-07-09 15:48] LABS: Bacteria 0 SEEN /hpf (None Seen); Mucous, Urine 0 SEEN /hpf (<or=2+); Red Blood Cells-Urine 0 SEEN /hpf (0-5)
[2019-07-09 16:07] LABS: International Normalized Ratio 1.1; Partial Thromboplast Time 27.9 Seconds (24.1-36.2); Prothrombin Time (Protime)PT. 13.7 SECONDS (11.7-14.9)
[2019-07-09 16:08] LABS: ALB/GLOB Ratio 0.9 RATIO (0.9-2.4); AST(SGOT) 68 U/L (15-37); Alanine Aminotransfer ALT/SGPT 62 U/L (13-56); Albumin, Serum 3.3 g/dL (3.2-5.0); Alkaline Phosphatase 98 U/L (45-117); Anion Gap 2 (5-15); BUN 19 mg/dL (7-18); BUN/Creat Ratio 14.6 RATIO (10-20); Chloride 94 mmol/L (98-107); EST Glomerular Filtration Rate 45 mL/min (>60); Est Glom Filt Rate - Afr Amer 54 mL/min (>60); Estimated Creatinine Clearance 33.47 ml/min; Globulin 3.5 g/dL (2.2-4.2); Glucose 133 mg/dL (74-106); Potassium 2.2 mmol/L (3.5-5.1); Protein, Total 6.8 g/dL (6.4-8.2); Sodium Level 139 mmol/L (136-145)
[2019-07-09 16:11] LABS: Color, Urine Yellow (Yellow); Glucose, Dipstick Normal (Normal); Ketone-Dipstick Negative (Negative); Leukocyte Esterase-Dipstick Negative /ul (Negative); Nitrite-Dipstick Negative (Negative); Occult Blood-Urine 10 /ul (Negative); Protein-Dipstick Negative (Negative); Specific Gravity, Urine 1.005 (1.002-1.030); Urine Bilirubin Dipstick Negative (Negative); Urine Clarity Clear (Clear); Urine Urobilinogen Normal (Normal)
[2019-07-09 16:16] LABS: Squamous Epithelial Cells - UA 0-5 SEEN /hpf (5-10); White Blood Cells 0-5 SEEN /hpf (0-5)
[2019-07-09 16:53] VITALS: BP 107/70; BP 112/70; BP 99/62; PULSE 78; PULSE 84; RESP 16; O2SAT 93
--- NOTE | 2019-07-09 18:15 | ED.RN ---
RN CALL TO PHARMACY FOR OTHER 2 DOSES OF 40MEQ LIQUID POTASSIUM. PHARMACY VERIFIED TO SEND TO ER.
[2019-07-09 18:40] VITALS: BP 104/69; PULSE 79; RESP 20; O2SAT 91
[2019-07-09 19:13] VITALS: BP 102/71; PULSE 85; RESP 16; O2SAT 93
[2019-07-09 20:13] VITALS: BP 113/71; PULSE 87; RESP 18; O2SAT 86
== END 2019-07-09 20:28 | disposition home or self-care (01) ==
PROVIDERS: Emergency Provider Emergency Medicine; Family Provider Family Medicine; PCP Family Medicine
DX: E87.6 Hypokalemia (principal); K59.00 Constipation, unspecified; E11.22 Type 2 diabetes mellitus with diabetic chronic kidney disease; I12.9 Hypertensive chronic kidney disease with stage 1 through stage 4 chronic kidney disease, or unspecified chronic kidney disease; N18.3 Chronic kidney disease, stage 3 (moderate); S80.12XA Contusion of left lower leg, initial encounter; S80.11XA Contusion of right lower leg, initial encounter; T14.8XXA Other injury of unspecified body region, initial encounter; X58.XXXA Exposure to other specified factors, initial encounter; Y93.9 Activity, unspecified; Y92.9 Unspecified place or not applicable; R29.6 Repeated falls; F41.9 Anxiety disorder, unspecified; J44.9 Chronic obstructive pulmonary disease, unspecified; K21.9 Gastro-esophageal reflux disease without esophagitis; E78.5 Hyperlipidemia, unspecified; E11.42 Type 2 diabetes mellitus with diabetic polyneuropathy; M54.12 Radiculopathy, cervical region; Z87.19 Personal history of other diseases of the digestive system; Z98.1 Arthrodesis status; Z79.84 Long term (current) use of oral hypoglycemic drugs; Z79.899 Other long term (current) drug therapy; F17.200 Nicotine dependence, unspecified, uncomplicated
CPT/HCPCS: 70450; 74022; 80053; 81001; 82533; 85025; 85610; 85730; 99285; P9612; A4216

== ENCOUNTER → 2019-07-28 09:55 | Outpatient (CLI) | payer OTHER, SELFPAY ==
[2019-07-09 14:26] VITALS: BMI 33.2
[2019-07-28 13:26] LABS: Anion Gap 5 (5-15); BUN 16 mg/dL (7-18); BUN/Creat Ratio 11.3 RATIO (10-20); Chloride 101 mmol/L (98-107); Creatinine, Serum 1.41 mg/dL (0.55-1.02); EST Glomerular Filtration Rate 41 mL/min (>60); Est Glom Filt Rate - Afr Amer 49 mL/min (>60); Glucose 193 mg/dL (74-106); Potassium 3.2 mmol/L (3.5-5.1); Sodium Level 142 mmol/L (136-145)
== END ==
PROVIDERS: Family Provider Family Medicine; PCP Family Medicine; Referring Provider Family Medicine; Visit Provider Family Medicine
DX: E11.9 Type 2 diabetes mellitus without complications (principal)
CPT/HCPCS: 36415; 80048

== ENCOUNTER → 2019-08-29 14:42 | Outpatient (CLI) | payer MEDICAID, SELFPAY ==
--- NOTE | 2019-08-29 14:45 | CT_ITS ---
STUDY: LOW DOSE CT LUNG CANCER SCREENING REASON FOR EXAM: Female, 59 years old. 1PPD X 40YR SMOKING. Hx of diabetes, COPD and emphysema RADIATION DOSAGE (If Supplied By Facility): CTDIvol = ( 3.02 ) mGy, DLP = ( 99.68 ) mGycm TECHNIQUE: No contrast was administered. Low dose technique was utilized (average mAS-38 and kVp 120). 1.25 mm axial source images with a slice interval of 1.25-mm were reconstructed in lung windows. 2.5 mm axial source images with a slice interval of 2.5-mm were reconstructed in lung windows. 5.0 mm axial source images with a slice interval of 5.0-mm were reconstructed in soft tissue windows. Nodule measured using lung windows on PACS and/or independent workstation with automated measurement of minimum and maximum diameter. Nodule measurement reported as average diameter rounded to the nearest whole number. Growth is defined as an increase ins size of greater than 1.5 mm. COMPARISON: CTA chest 07/31/2018 NODULES: Nodule #: 1 Density: Solid Lung location: Right lower lobe: 1 cm from pleura Location in series: Series Number: 2 Image: 101 Size - D1 x D2 mm: 2x4 mm: 3 mm average diameter Margin: Smooth Shape: Oval Calcification: None Fat: None Temporal comparison: Stable Nodule #: 2 Density: Solid Lung location: Right lower lobe: 0.7 cm from pleura Location in series: Series Number: 2 Image: 145 Size - D1 x D2 mm: 2x3 mm: 3 mm average diameter Margin: Smooth Shape: Oval Calcification: None Fat: None Temporal comparison: Stable Total lung nodules (excluding granulomas): 2 Emphysema: Scattered intraparenchymal emphysematous blebs. Endobronchial lesion: None Aorta: Moderate atherosclerosis Coronary arteries: At least 2 vessel atherosclerotic disease. Heart: Normal size Pulmonary artery: Unremarkable for unopacified technique. Mediastinal nodes: No adenopathy. Other chest and abdominal findings: There are degenerative changes throughout the thoracic spine. Fusion hardware of the lower cervical spine demonstrated. CT/Low Dose CT Lung Screening IMPRESSION: Lung-RADS category 2 - Continue annual screening with LDCT in 12 months. IMPORTANT NOTES FOR USE: ACR Lung-RADS Version 1.0 Assessment Categories Release Date: December 01, 2013 Category: Coded 0-4 bases on nodule(s) with highest degree of suspicion. Negative screen is defined as categories 1 and 2; a positive screen is defined as categories 3 and 4. Category 3 and 4A nodules that are unchanged on interval CT should be coded as category 2, and individuals returned to screening in 12 months. Category 4X: Category 3 or 4 nodules with additional imaging findings that increase the suspicion of lung cancer, such as spiculation, GGN that doubles in size in 1 year, enlarged lymph notes, etc. Category Modifiers: S (significant finding unrelated to lung cancer) and C (prior history of treated lung cancer) may be added to the 0-4 Lung-RADS Electronically Signed: Jesus Dickey MD ([place]) at 12:43 EST , Service support ,
== END ==
PROVIDERS: PCP Family Medicine; Referring Provider Internal Medicine Critical Care Medicine; Visit Provider Internal Medicine Critical Care Medicine
DX: F17.210 Nicotine dependence, cigarettes, uncomplicated (principal)
CPT/HCPCS: G0297

== ENCOUNTER → 2019-10-16 14:40 | Outpatient (CLI) | payer MEDICARE, MEDICAID, SELFPAY ==
[2019-10-16 15:41] LABS: Anion Gap 3 (5-15); BUN 10 mg/dL (7-18); BUN/Creat Ratio 10.5 RATIO (10-20); Calcium,Total 8.7 mg/dL (8.5-10.1); Chloride 103 mmol/L (98-107); Cholesterol 160 mg/dL (200); Creatinine, Serum 0.95 mg/dL (0.55-1.02); EST Glomerular Filtration Rate 64 mL/min (>60); Est Glom Filt Rate - Afr Amer 77 mL/min (>60); Glucose 78 mg/dL (74-106); High Density Lipoprotein 47 mg/dL; Potassium 2.9 mmol/L (3.5-5.1); Sodium Level 147 mmol/L (136-145); Triglycerides 182 mg/dL; Very Low Density Lipoprotein 36 mg/dL (5-40)
== END ==
PROVIDERS: PCP Family Medicine; Referring Provider Family Medicine; Visit Provider Family Medicine
DX: E11.9 Type 2 diabetes mellitus without complications (principal)
CPT/HCPCS: 36415; 80048; 80061

== ENCOUNTER → 2020-01-01 06:42 | Outpatient (CLI) | payer MEDICARE, MEDICAID, SELFPAY ==
[2019-12-17 08:03] VITALS: BMI 33.2
--- NOTE | 2020-01-01 14:11 | PFTCOMP_ITS ---
COMPLETE PULMONARY FUNCTION TEST INTERPRETATION Brief HPI: Patient is a 59 year old [female male], currently under the care of Dr. Briggs, who presents to [facility] for complete pulmonary function tests secondary to diagnosis of COPD. Respiratory therapist reports good effort and reproducible results. Interpretation: Forced expiration spirometry shows [no a mild moderate moderately-severe severe very severe] large airways obstructive ventilatory defect with an FEV1 of 74% predicted. There is no significant bronchodilator response by strict ATS criteria. Spirograms are of good quality and plateau [normally]. The respiratory flow volume loop shows [a normal pattern]. Lung volumes by body plethysmography show [a normal an elevated, a decreased] total lung capacity at 4.22 L, 94% predicted. [All other lung volumes are within normal limits.] Diffusion capacity by carbon monoxide is [normal elevated,decreased] at 80% predicted. The airway resistance is [normal elevated]. [Compared to previous pulmonary function tests from] 11/28/2018, there has been normalization of FVC, FEV1 and DLCO.. Impression: Normal pulmonary function test with significant improvement compared to previous.
== END ==
PROVIDERS: PCP Family Medicine; Referring Provider Nurse Practitioner Acute Care; Visit Provider Nurse Practitioner Acute Care
DX: J44.9 Chronic obstructive pulmonary disease, unspecified (principal)
CPT/HCPCS: 94060; 94726; 94729

== ENCOUNTER → 2020-01-20 11:29 | Outpatient (CLI) | payer MEDICARE, SELFPAY ==
[2019-12-17 08:03] VITALS: BMI 33.2
[2020-01-20 15:15] LABS: Hematocrit 45.1 % (37-47); Hemoglobin 14.2 g/dL (12.0-15.0); Mean Corp Hgb Conc 31.5 g/dL (32-36); Mean Corpuscular Hgb 33.3 pg (27.0-32.0); Mean Corpuscular Volume 105.6 fL (81-99); Mean Platelet Vol. 10.7 fl (6.2-12.0); Platelet Count 211 K/mm3 (150-450); RBC Distribution Width SD 54.7 fl (35.1-43.9); Red Blood Count 4.27 M/mm3 (4.2-5.4)
[2020-01-20 15:29] LABS: Vitamin D,25 Hydroxy 76.6 ng/mL
[2020-01-20 15:38] LABS: ALB/GLOB Ratio 0.9 RATIO (0.9-2.4); AST(SGOT) 11 U/L (15-37); Alanine Aminotransfer ALT/SGPT 17 U/L (13-56); Albumin, Serum 3.3 g/dL (3.2-5.0); Alkaline Phosphatase 108 U/L (45-117); Anion Gap 5 (5-15); BUN 8 mg/dL (7-18); BUN/Creat Ratio 7.9 RATIO (10-20); Calcium,Total 8.9 mg/dL (8.5-10.1); Chloride 104 mmol/L (98-107); Creatinine, Serum 1.01 mg/dL (0.55-1.02); EST Glomerular Filtration Rate 59 mL/min (>60); Est Glom Filt Rate - Afr Amer 72 mL/min (>60); Ferritin 174 ng/mL (8-252); Globulin 3.6 g/dL (2.2-4.2); Glucose 54 mg/dL (74-106); Iron 76 ug/dL (50-170); Potassium 3.1 mmol/L (3.5-5.1); Protein, Total 6.9 g/dL (6.4-8.2); Sodium Level 144 mmol/L (136-145); Thyroid Stim Hormone (TSH) 1.76 uIU/mL (0.358-3.74)
[2020-01-20 15:45] LABS: BNP,B-Type NATRIURETIC PEPTIDE 63.9 pg/mL (0-100)
== END ==
PROVIDERS: PCP Family Medicine; Referring Provider Family Medicine; Visit Provider Family Medicine
DX: Z00.00 Encounter for general adult medical examination without abnormal findings (principal); R60.0 Localized edema; E55.9 Vitamin D deficiency, unspecified; J44.9 Chronic obstructive pulmonary disease, unspecified
CPT/HCPCS: 36415; 80053; 82306; 82728; 83540; 83880; 84443; 85027

== ENCOUNTER 2020-04-08 20:11 | Emergency (ER) | payer MEDICARE, MEDICAID, SELFPAY ==
[2020-04-05 08:32] VITALS: BMI 33.2
[2020-04-08 20:12] VITALS: BP 117/76; PULSE 81; RESP 18; TEMP 37.1; O2SAT 97; BMI 32.9
--- NOTE | 2020-04-08 21:57 | RAD_ITS ---
STUDY: X-RAY - UNILATERAL RIBS ( RIGHT ) WITH CHEST REASON FOR EXAM: Female, 60 years old. RIGHT ANTERIOR RIB PAIN POST FALL FIVE DAYS AGO. TECHNIQUE - RIBS: 4 view(s) of the ribs. TECHNIQUE - CHEST: PA COMPARISON: None. FINDINGS - RIBS: Normal visualized ribs without a demonstrated fracture. FINDINGS - CHEST: The lungs are clear and expanded. There is no demonstrated pleural abnormality. Normal size heart. Normal mediastinum and parveen. Normal visualized pulmonary arteries. Mildly calcified aortic arch and descending thoracic aorta. Postsurgical change status post cervical fusion Normal visualized thoracic spine. Normal visualized ribs, clavicles, and shoulders. There is no demonstrated abnormality of the visualized soft tissue structures of the upper abdomen. RAD/Ribs Uni Min 3V w/PA Chest IMPRESSION: RIBS: Normal x-ray examination of the ribs. CHEST: No acute cardiopulmonary pathology. Electronically Signed: Davidson Mcclure MD at 22:26 EDT , Service support ,
--- NOTE | 2020-04-08 21:58 | ED.DCSUM_ITS ---
History of Present Illness Chief Complaint: Fall Informant: Patient Narrative: 60-year-old female presenting with left knee pain and right rib pain. She states that the right rib pain was present previously but she tripped and fell on uneven sidewalk and now her right ribs hurt even worse. She states she hit her left knee on the sidewalk. She denies head injury or LOC. She is not on blood thinners. She does not have any cough, fever, shortness of breath, nausea, vomiting. - Past Medical History (1) Anxiety Status: Chronic (2) CKD (chronic kidney disease) stage 3, GFR 30-59 ml/min Status: Chronic (3) COPD (chronic obstructive pulmonary disease) Status: Chronic (4) Chronic back pain Status: Chronic (5) Diabetes mellitus, type II Status: Chronic Past Medical History - Allergies and Home Meds Allergies/Adverse Reactions: Allergies No Known Allergies Allergy (Verified 04/08/20 20:11) Primary Care Physician: Hua Mosher MD [Primary Care Provider] - Prior records reviewed: Yes Past Medical History: - - Reviewed under problem list Surgical History: cholecystectomy - 04/17/2018, - - Cervical spine surgery, BLTL, L shoulder surgery, R heel spur removal, hiatal hernia repair with mesh Lives: Alone Smoking Status: Current every day smoker Alcohol: None Drugs: None - Family History Maternal Family History: Family History (Last Reviewed 12/17/19 @ 09:02 by Viv Stone NP, [employer]) Mother Hypertension Family History: Reports: Diabetes, Hypertension Paternal Family History: Family History (Last Reviewed 12/17/19 @ 09:02 by Viv Stone NP, [employer]) Mother Hypertension Family History: Reports: Cancer - Father w/ lung CA, metastatic, 70s., Diabetes, Heart Disease - He reported that his father had heart attack in his late 60s., Hypertension Review of Systems General: Denies: Chills, Fever, Sweats Eyes: Denies: Visual changes - bilaterally, Diplopia ENT: Denies: Rhinorrhea, Sore throat Cardiovascular: Denies: Chest pain, Palpitations Respiratory: Reports: - - Right rib pain Gastrointestinal: Denies: Abdominal pain, Nausea, Vomiting Musculoskeletal: Reports: - - Left knee pain Skin: Denies: Rash, Abscess Neurological: Denies: Headache, Weakness Physical Exam Vital Signs/Narrative: Vital Signs Temp Pulse Resp BP Pulse Ox 04/08/20 20:12 98.7 F 81 18 117/76 97 General: Well nourished, Well developed, No Acute Distress Head: Normocephalic, Atraumatic Eyes: Perrl, EOMI ENT: Moist mucous membranes, No rhinorrhea Cardiovascular: Regular rate, Regular rhythm, No murmurs Respiratory: No distress, CTA bilaterally, - - Tenderness to palpation over right lateral ribs. No crepitance, deformity, ecchymosis. Equal symmetric breath sounds and chest wall rise. Abdomen: Soft, Nontender Back: Nontender, Normal Inspection Diagnostic/Tx/Re-eval Clinical Impression(s) from Imaging Studies Ribs w/Chest X-Ray 04/08/20 21:57 IMPRESSION: RIBS: Normal x-ray examination of the ribs. CHEST: No acute cardiopulmonary pathology. Electronically Signed: Davidson Mcclure MD at 22:26 EDT , Service support , Knee X-Ray 04/08/20 22:00 IMPRESSION: Mild degenerative change. No acute fracture or other significant bony pathology Electronically Signed: Davidson Mcclure MD at 22:27 EDT , Service support , - Medical Decision Making 60-year-old female presenting with right rib pain and left knee pain patient states this is several days ago however her right ribs hurt worse after her fall. Her left knee started hurting when she hit it on the ground. She is ambulatory with antalgic gait. I obtained left knee x-ray as well as right rib series and these are both negative. Patient is counseled on ice, alternating Tylenol and ibuprofen. Patient will be discharged home in stable condition. Impression: 1. Right rib pain 2. Left knee contusion ED Disposition - Plan for ED Patient: Disposition: Home or Assisted Living Instructions: ED Knee Pain UKO, ED Contusion Vs Minor Fx Rib Referrals: Hua Mosher MD [Primary Care Provider] -
--- NOTE | 2020-04-08 22:00 | RAD_ITS ---
STUDY: X-RAY - LEFT KNEE REASON FOR EXAM: Female, 60 years old. LEFT KNEE PAIN POST FALL FIVE DAYS AGO. TECHNIQUE: 4 view(s) of the knee. COMPARISON: None. FINDINGS: Normal visualized distal femur. Normal visualized proximal tibia and fibula. Normal proximal tibiofibular articulation. Narrowed medial femorotibial compartment. Normal lateral femorotibial compartment. Normal patellofemoral articulation. The soft tissue structures are unremarkable. RAD/Knee 4 or More Views IMPRESSION: Mild degenerative change. No acute fracture or other significant bony pathology Electronically Signed: Davidson Mcclure MD at 22:27 EDT , Service support ,
[2020-04-08] MEDS: HYDROcodone Bitartrate/Apap 5/325 Tablet PO (23:10)
[2020-04-08 23:14] VITALS: PULSE 82; RESP 16; O2SAT 98
== END 2020-04-08 23:15 | disposition home or self-care (01) ==
PROVIDERS: Emergency Provider Student in an Organized Health Care Education/Training Program; PCP Family Medicine
DX: R07.81 Pleurodynia (principal); S80.02XA Contusion of left knee, initial encounter; W01.0XXA Fall on same level from slipping, tripping and stumbling without subsequent striking against object, initial encounter; Y93.9 Activity, unspecified; Y92.9 Unspecified place or not applicable; E11.22 Type 2 diabetes mellitus with diabetic chronic kidney disease; N18.3 Chronic kidney disease, stage 3 (moderate); F41.9 Anxiety disorder, unspecified; J44.9 Chronic obstructive pulmonary disease, unspecified; Z79.84 Long term (current) use of oral hypoglycemic drugs; Z79.899 Other long term (current) drug therapy; F17.200 Nicotine dependence, unspecified, uncomplicated
CPT/HCPCS: 71101; 73564; 99284

== ENCOUNTER → 2020-04-21 10:32 | Outpatient (CLI) | payer MEDICARE, MEDICAID, SELFPAY ==
[2020-04-08 20:12] VITALS: BMI 32.9
[2020-04-21 12:24] LABS: Erythrocyte Sedimentation Rate 31 mm/hr (0-30)
[2020-04-21 12:25] LABS: Hematocrit 48.5 % (37-47); Hemoglobin 15.7 g/dL (12.0-15.0); Mean Corp Hgb Conc 32.4 g/dL (32-36); Mean Corpuscular Hgb 33.1 pg (27.0-32.0); Mean Corpuscular Volume 102.3 fL (81-99); Mean Platelet Vol. 9.9 fl (6.2-12.0); Platelet Count 255 K/mm3 (150-450); RBC Distribution Width SD 53.2 fl (35.1-43.9); Red Blood Count 4.74 M/mm3 (4.2-5.4); White Blood Count 8.8 K/mm3 (4.4-11.0)
[2020-04-21 12:53] LABS: ALB/GLOB Ratio 0.8 RATIO (0.9-2.4); AST(SGOT) 16 U/L (15-37); Alanine Aminotransfer ALT/SGPT 18 U/L (13-56); Albumin, Serum 3.4 g/dL (3.2-5.0); Alkaline Phosphatase 125 U/L (45-117); Anion Gap 4 (5-15); BUN 10 mg/dL (7-18); BUN/Creat Ratio 8.5 RATIO (10-20); Calcium,Total 9.2 mg/dL (8.5-10.1); Chloride 100 mmol/L (98-107); Creatinine, Serum 1.17 mg/dL (0.55-1.02); EST Glomerular Filtration Rate 50 mL/min (>60); Est Glom Filt Rate - Afr Amer 61 mL/min (>60); Glucose 97 mg/dL (74-106); Iron 82 ug/dL (50-170); Potassium 2.7 mmol/L (3.5-5.1); Protein, Total 7.4 g/dL (6.4-8.2); Sodium Level 143 mmol/L (136-145); Thyroid Stim Hormone (TSH) 1.12 uIU/mL (0.358-3.74)
[2020-04-21 12:57] LABS: Vitamin B12 518 pg/mL (211-911); Vitamin D,25 Hydroxy 74.3 ng/mL
== END ==
PROVIDERS: PCP Family Medicine; Referring Provider Family Medicine; Visit Provider Family Medicine
DX: E11.9 Type 2 diabetes mellitus without complications (principal); R26.81 Unsteadiness on feet; R63.4 Abnormal weight loss
CPT/HCPCS: 36415; 80053; 82306; 82607; 83540; 84134; 84443; 85027; 85652

== ENCOUNTER → 2020-05-20 10:50 | Outpatient (CLI) | payer MEDICARE, MEDICAID, SELFPAY ==
--- NOTE | 2020-05-20 11:00 | RAD_ITS ---
STUDY: X-RAY - LUMBAR SPINE REASON FOR EXAM: Female, 60 years old. chronic back pain, increased pain after fall last week TECHNIQUE: 5 view(s) of the lumbar spine were obtained. COMPARISON: 05/15/2019 FINDINGS: There is straightening of the normal lumbar lordosis. There is multilevel endplate spondylosis of the lumbar vertebrae. There is multi-level degenerative disc disease with multi-level disc space narrowing. There is atherosclerotic calcification of the abdominal aorta. RAD/L/S Spine Min 4 Views IMPRESSION: Degenerative changes of the spine. Electronically Signed: Rosa Freedman MD at 9:38 EDT Tel , Service support ,
== END ==
PROVIDERS: PCP Family Medicine; Referring Provider Family Medicine; Visit Provider Family Medicine
DX: M54.9 Dorsalgia, unspecified (principal)
CPT/HCPCS: 72110

== ENCOUNTER → 2020-06-02 10:00 | Outpatient (CLI) | payer MEDICARE, MEDICAID, SELFPAY ==
[2020-06-07 17:29] LABS: Potassium 3.6 mmol/L (3.5-5.1)
== END ==
PROVIDERS: Anesthesiology; PCP Family Medicine; Referring Provider Urology; Visit Provider Urology
DX: Z01.818 Encounter for other preprocedural examination (principal); Z20.828 Contact with and (suspected) exposure to other viral communicable diseases
CPT/HCPCS: 36415; 84132; 87426; C9803

== ENCOUNTER → 2020-09-15 08:06 | Outpatient (CLI) | payer MEDICARE, MEDICAID, SELFPAY ==
--- NOTE | 2020-09-15 08:10 | CT_ITS ---
STUDY: LOW DOSE CT LUNG CANCER SCREENING REASON FOR EXAM: Female, 60 years old. TOBACCO ABUSE -- 1PPD X38 YEARS -- COPD RADIATION DOSAGE (If Supplied By Facility): CTDIvol = ( 3.02 ) mGy, DLP = ( 88.75 ) mGycm TECHNIQUE: No contrast was administered. Low dose technique was utilized (average mAS-38 and kVp 120). 1.25 mm axial source images with a slice interval of 1.25-mm were reconstructed in lung windows. 2.5 mm axial source images with a slice interval of 2.5-mm were reconstructed in lung windows. 5.0 mm axial source images with a slice interval of 5.0-mm were reconstructed in soft tissue windows. Nodule measured using lung windows on PACS and/or independent workstation with automated measurement of minimum and maximum diameter. Nodule measurement reported as average diameter rounded to the nearest whole number. Growth is defined as an increase ins size of greater than 1.5 mm. COMPARISON: Comparison is made with prior study dated 08/29/2019. NODULES: Stable 2 mm x 4 mm solid nodule in the posterior lateral aspect of the right lower lobe as seen on axial image #107. Stable 2 mm x 3 mm round noncalcified nodule in the right lower lobe as seen on axial image #140. Emphysema: Stable emphysematous changes with scattered emphysematous blebs. Endobronchial lesion: None Aorta: Calcified atherosclerotic plaques. Coronary arteries: Coronary artery calcifications. Mediastinal nodes: Small mediastinal lymph nodes. Other chest and abdominal findings: Degenerative changes of the thoracic spine. CT/Low Dose CT Lung Screening IMPRESSION: Lung-RADS category 2 - Continue annual screening with LDCT in 12 months. IMPORTANT NOTES FOR USE: ACR Lung-RADS Version 1.0 Assessment Categories Release Date: December 01, 2013 Category: Coded 0-4 bases on nodule(s) with highest degree of suspicion. Negative screen is defined as categories 1 and 2; a positive screen is defined as categories 3 and 4. Category 3 and 4A nodules that are unchanged on interval CT should be coded as category 2, and individuals returned to screening in 12 months. Category 4X: Category 3 or 4 nodules with additional imaging findings that increase the suspicion of lung cancer, such as spiculation, GGN that doubles in size in 1 year, enlarged lymph notes, etc. Category Modifiers: S (significant finding unrelated to lung cancer) and C (prior history of treated lung cancer) may be added to the 0-4 Lung-RADS Electronically Signed: Roger Barker MD at 8:57 EST , Service support ,
== END ==
PROVIDERS: PCP Family Medicine; Referring Provider Nurse Practitioner Acute Care; Visit Provider Nurse Practitioner Acute Care
DX: Z87.891 Personal history of nicotine dependence (principal)
CPT/HCPCS: 71271

== ENCOUNTER → 2020-09-16 10:41 | Outpatient (CLI) | payer MEDICARE, MEDICAID, SELFPAY ==
--- NOTE | 2020-09-16 10:50 | RAD_ITS ---
STUDY: X-RAY - PELVIS AND RIGHT HIP REASON FOR EXAM: Right hip pain, history of falls. TECHNIQUE: 2 views of the pelvis and hip. COMPARISON: Radiographs 04/02/2017. FINDINGS: Normal visualized soft tissue structures. Normal bilateral iliac wings, sacroiliac joints and visualized sacrum. Normal bilateral superior and inferior pubic rami. Normal pubic symphysis. Normal bilateral ischial tuberosities. Normal visualized femoral head. Normal acetabulum. There is mild joint space narrowing of the superior medial right hip joint. RAD/HIP, UNI W/ Pelvis 2-3 Views IMPRESSION: Mild right hip arthrosis. Electronically Signed: Brijesh Hutson MD at 14:46 EST Tel , Service support ,
== END ==
PROVIDERS: PCP Family Medicine; Referring Provider Family Medicine; Visit Provider Family Medicine
DX: M25.551 Pain in right hip (principal)
CPT/HCPCS: 73502

== ENCOUNTER → 2020-11-04 10:43 | Outpatient (CLI) | payer MEDICARE, MEDICAID, SELFPAY ==
[2020-10-28 10:55] VITALS: BMI 29.6
--- NOTE | 2020-11-04 10:48 | RAD_ITS ---
EXAM: XR FACE COMPLETE, 3 OR MORE VIEWS : 1960 CLINICAL INDICATION: contusions on face/around nosefell 4 days ago TECHNIQUE: Frontal, lateral and oblique views of the face. This report was created using [employer] report generation technology. COMPARISON: None. FINDINGS: BONES/JOINTS: See below. SINUSES: No acute findings. DENTAL: Multiple teeth are missing from the maxilla and the mandible. Patient has had spinal fixation at the C3-C4 level with anterior fixation hardware in place SOFT TISSUES: Unremarkable. No soft tissue swelling or gas. No radiopaque foreign body. RAD/Facial Bones min 3 Views IMPRESSION: No acute findings in the face. at 0645 Reported and signed by: Gianfranco Ocasio MD Electronically Signed: Gianfranco Ocasio MD at 6:44 EDT Tel , Service support ,
--- NOTE | 2020-11-04 10:48 | RAD_ITS ---
HISTORY: neck and facial pain from fall 4 days ago COMPARISON: Previous imaging of the cervical spine is from June 23, 2019 FINDINGS: # of images incl. paperwork: 6 XR Spine Cervical 4 or 5 Views: Anterior cervical fixation at the C3-C4 level and anterior cervical fixation at the C6-C7 level with fusion across the C6-C7 intervertebral disc space. A prosthetic disc spacer is present at the C3-C4 level. These changes are similar to the previous study Prevertebral soft tissues are not thickened. All 7 cervical vertebral bodies are identified. No acute cervical spine fracture or subluxation. Normal cervical spine alignment. Odontoid is intact. Facet arthropathy is present at most levels, but GREATEST at the C2-C3 level. Neural foramina appear to be widely patent. No significant uncovertebral hypertrophy is perceived. RAD/Cerv Spine 4 or 5 Views IMPRESSION: No acute cervical spine fracture or subluxation. Anterior cervical fixation changes at C3-C4 and C6-C7 which are chronic and stable since June 23, 2019. at 0643 Reported and signed by: Gianfranco Ocasio MD Electronically Signed: Gianfranco Ocasio MD at 6:42 EDT Tel , Service support ,
== END ==
PROVIDERS: PCP Family Medicine; Referring Provider Family Medicine; Visit Provider Family Medicine
DX: M54.2 Cervicalgia (principal); S00.83XA Contusion of other part of head, initial encounter
CPT/HCPCS: 70150; 72050

== ENCOUNTER → 2020-12-23 11:44 | Outpatient (CLI) | payer MEDICARE, MEDICAID, SELFPAY ==
[2020-10-28 10:55] VITALS: BMI 29.6
[2020-12-23 15:04] LABS: Hematocrit 44.9 % (37-47); Hemoglobin 14.7 g/dL (12.0-15.0); Mean Corp Hgb Conc 32.7 g/dL (32-36); Mean Corpuscular Hgb 34.1 pg (27.0-32.0); Mean Corpuscular Volume 104.2 fL (81-99); Mean Platelet Vol. 10.6 fl (6.2-12.0); Platelet Count 211 K/mm3 (150-450); RBC Distribution Width CV 12.9 % (11.6-14.6); RBC Distribution Width SD 49.5 fl (35.1-43.9); Red Blood Count 4.31 M/mm3 (4.2-5.4); White Blood Count 8.1 K/mm3 (4.4-11.0)
[2020-12-23 15:36] LABS: Erythrocyte Sedimentation Rate 31 mm/hr (0-30)
[2020-12-23 16:44] LABS: ALB/GLOB Ratio 0.9 RATIO (0.9-2.4); AST(SGOT) 18 U/L (15-37); Alanine Aminotransfer ALT/SGPT 27 U/L (13-56); Albumin, Serum 3.5 g/dL (3.2-5.0); Alkaline Phosphatase 118 U/L (45-117); Anion Gap 8 (5-15); BUN 10 mg/dL (7-18); BUN/Creat Ratio 8.5 RATIO (10-20); Chloride 107 mmol/L (98-107); Cholesterol 141 mg/dL (200); Creatinine, Serum 1.17 mg/dL (0.55-1.02); EST Glomerular Filtration Rate 50 mL/min (>60); Est Glom Filt Rate - Afr Amer 61 mL/min (>60); Globulin 3.7 g/dL (2.2-4.2); Glucose 128 mg/dL (74-106); High Density Lipoprotein 45 mg/dL; Potassium 3.3 mmol/L (3.5-5.1); Prealbumin 24.1 mg/dL (20.0-40.0); Protein, Total 7.2 g/dL (6.4-8.2); Sodium Level 143 mmol/L (136-145); Thyroid Stim Hormone (TSH) 2.01 uIU/mL (0.358-3.74); Triglycerides 143 mg/dL; Very Low Density Lipoprotein 29 mg/dL (5-40)
== END ==
PROVIDERS: PCP Family Medicine; Referring Provider Family Medicine; Visit Provider Family Medicine
DX: E11.9 Type 2 diabetes mellitus without complications (principal); R63.4 Abnormal weight loss; E55.9 Vitamin D deficiency, unspecified
CPT/HCPCS: 36415; 80053; 80061; 82306; 84134; 84443; 85027; 85652

== ENCOUNTER → 2021-01-28 08:29 | Outpatient (CLI) | payer MEDICARE, MEDICAID, SELFPAY ==
[2020-10-28 10:55] VITALS: BMI 29.6
--- NOTE | 2021-01-28 08:31 | RAD_ITS ---
The preliminary lateral view of the neck showed Stand Alone Fixation device fixing the vertebral bodies of of C3-4. There is another metallic plate fixation device between the bodies C6-7. Frontal and lateral images of the entire esophagus were obtained during swallowing. The patient swallowed barium without difficulty the entire esophagus was delineated well without evidence of obstruction or filling defect. No gastroesophageal reflux identified. A small hiatal hernia is noted. There is possibility that the fixation device between 3-4 causing the feeling of dysphagia in this patient. Particularly in the complaint is at the level of cervical esophagus. Electronically Signed: Gautam Bonilla, at 10:50 EDT Tel , Service support , RAD/Esophagus Single Contrast
== END ==
PROVIDERS: PCP Family Medicine; Referring Provider Family Medicine; Visit Provider Family Medicine
DX: K21.9 Gastro-esophageal reflux disease without esophagitis (principal)
CPT/HCPCS: 74220

== ENCOUNTER 2021-02-19 16:30 | Emergency (ER) | payer MEDICARE, MEDICAID, SELFPAY ==
[2020-10-28 10:55] VITALS: BMI 29.6
[2021-02-19 16:31] VITALS: BP 106/72; PULSE 81; RESP 16; TEMP 35.7; O2SAT 98; BMI 29.2
--- NOTE | 2021-02-19 17:10 | RAD_ITS ---
STUDY: X-RAY - RIGHT HAND REASON FOR EXAM: Female, 61 years old. pain TECHNIQUE: 3 view(s) of the hand. COMPARISON: None. FINDINGS: Please see the impression. RAD/Hand Min 3 Views IMPRESSION: Questionable nondisplaced fracture of the radial styloid. CT scan may be obtained to confirm. No acute fracture or dislocation in the right hand. Polyarticular osteoarthritis. No radiopaque foreign body. Electronically Signed: Manas Montaño MD at 18:26 EDT Tel , Service support ,
--- NOTE | 2021-02-19 17:10 | RAD_ITS ---
STUDY: X-RAY - RIGHT WRIST REASON FOR EXAM: Female, 61 years old. pain TECHNIQUE: 3 view(s) of the wrist were obtained. COMPARISON: None. FINDINGS: Please see the impression. RAD/Wrist min 3 Views IMPRESSION: Questionable nondisplaced fracture of the radial styloid. CT scan may be obtained to confirm. Diffuse osteopenia. Polyarticular osteoarthritis. No radiopaque foreign body. Electronically Signed: Manas Montaño MD at 18:27 EDT Tel , Service support ,
--- NOTE | 2021-02-19 17:10 | RAD_ITS ---
STUDY: X-RAY - RIGHT SHOULDER REASON FOR EXAM: Female, 61 years old. shoulder pain TECHNIQUE: 3 view(s) of the shoulder. COMPARISON: None. FINDINGS: Please see the impression. RAD/Shoulder min 2 Views IMPRESSION: No acute fracture or dislocation the right shoulder. Mild osteoarthritis of the glenohumeral and acromioclavicular joints. Clear right lung. Electronically Signed: Manas Montaño MD at 18:28 EDT Tel , Service support ,
--- NOTE | 2021-02-19 17:12 | EX.ED.UPPERE ---
HPI History of Present Illness Chief Complaint: Upper Extremity Injury Narrative Narrative: Patient presenting with mechanical fall which occurred 24 hours ago. Patient was ambulating without her wheeled walker but using a grocery cart to balance herself. She states the grocery cart sort of got away ahead of her and she fell down. She fell on her right side. She injured her right shoulder, right elbow, right hand and wrist. She had some superficial abrasions over the left elbow that were bandaged. She states that her shoulder and her hand hurt the worse. She has pain with handgrip of the right hand. She has no numbness or tingling. PFSH PFSH Medical History Anxiety Cervical radiculitis Chest pain Chronic back pain CKD (chronic kidney disease) stage 3, GFR 30-59 ml/min COPD (chronic obstructive pulmonary disease) Diabetes mellitus, type II Fibromyalgia Hyperlipidemia Hypertension Tobacco use Home Medications simvastatin 20 mg PO QHS 10/08/15 [History Last Taken 05/17/18] trazodone 200 mg PO QHS 08/23/16 [History Last Taken 05/17/18] linagliptin 5 mg PO DAILY 10/15/17 [History Last Taken 05/18/18] furosemide 20 mg tablet 20 mg PO 1200 tab 11/15/17 [History Last Taken 04/20/18 12:00] gabapentin 300 mg PO 0800,1200 11/28/17 [History Last Taken 09/20/18 08:40] gabapentin 600 mg PO QHS 04/20/18 [History Last Taken 05/17/18] albuterol sulfate 90 mcg/actuation aerosol inhaler 2 puff INHALATION Q6H PRN #1 device 06/18/18 [Rx Last Taken Unknown] allopurinol 300 mg PO DAILY 07/30/18 [History Last Taken Unknown] Potassium Chloride 2 tablet PO BID 07/09/19 [History Last Taken Unknown] aripiprazole 5 mg PO DAILY 07/09/19 [History Last Taken Unknown] bupropion HCl (smoking deter) 150 mg PO DAILY 07/09/19 [History Last Taken Unknown] cholecalciferol (vitamin D3) 1,000 unit PO DAILY 07/09/19 [History Last Taken Unknown] docusate sodium 100 mg PO PRN PRN 07/09/19 [History Last Taken Unknown] ferrous sulfate 325 mg PO DAILY 07/09/19 [History Last Taken Unknown] furosemide 40 mg PO 0800 07/09/19 [History Last Taken Unknown] indapamide 1.25 mg PO MOFR 07/09/19 [History Last Taken Unknown] lamotrigine 100 mg PO DAILY 07/09/19 [History Last Taken Unknown] sertraline 150 mg PO DAILY 07/09/19 [History Last Taken Unknown] umeclidinium 62.5 mcg-vilanterol 25 mcg/actuation powdr for inhalation 1 inh INHALATION DAILY #60 ea 12/17/19 [Rx Last Taken Unknown] Allergy/AdvReac Type Severity Reaction Status Date / Time No Known Allergies Allergy Verified 02/19/21 16:33 Family History Mother Hypertension Surgical History Cervical vertebral fusion history EGD with ph probe (~12/09/17) History of colonoscopy (~12/05/17) History of repair of hiatal hernia History of tubal ligation Hx of cholecystectomy Social History Smoking Status: Current every day smoker tobacco type: cigarettes alcohol intake: never substance use type: does not use caffeine: No what type of physical activity do you participate in: none ROS ROS ED Constitutional Constitutional ED: Denies chills, frequent falls or sweats Eyes Eyes: Denies blurry vision or diplopia ENT ENT ED: Denies rhinorrhea or sore throat Cardiovascular Cardiovascular: Denies chest pain or palpitations Respiratory/Chest Respiratory/Chest: Denies cough or dyspnea Gastrointestinal Gastrointestinal: Denies abdominal pain, nausea or vomiting Genitourinary Genitourinary ED: Denies dysuria or hematuria Musculoskeletal Musculoskeletal: Reports myalgias and other Details: Right shoulder, elbow, wrist, hand pain Integumentary Reports Abrasions Neurologic Neurologic: Denies headache(s) or paresthesias Psychiatric Psychiatric: Denies anxiety or depression EXAM Physical Exam Const Vital Signs: 02/19/21 16:31 Temperature 96.2 F L Temperature Source Temporal Pulse Rate 81 Respiratory Rate 16 Blood Pressure 106/72 Blood Pressure Mean 83 Pulse Ox 98 Oxygen Delivery Method Room Air Positive well nourished General Appearance ED: NAD HEENT normocephalic and atraumatic Eyes PERRL and EOMs intact bilaterally Chest Wall inspection of chest normal Resp normal respiratory effort and clear to auscultation bilaterally Cardio regular rate and regular rhythm Extremity Extremity Narrative: Right shoulder is tender to palpation there is no gross deformity. There is pain with range of motion. Right elbow is tender to palpation over the olecranon process. There is a superficial abrasion overlying this. There is no pain in the forearm. Patient does not specifically have right wrist pain but has pain that radiates into the wrist from the hand when she tries to bacon skin lifter. There are no obvious deformities of the wrist or hand. Right hand is neurovascular intact with good cap refill to all 5 fingers. Neuro oriented x3 Sensorium / Orientation: alert Psych mental status grossly normal Skin Skin Narrative: Superficial abrasion x2 over the olecranon process. MDM MDM MDM Narrative Medical decision making narrative: Patient presenting after mechanical fall with right shoulder, right elbow, right hand pain. She does not specifically have right wrist pain, but states that the pain in her hand radiates to her wrist. For this reason I obtained x-rays of the right shoulder, right elbow, right wrist, right hand. The x-rays of the right shoulder, right elbow, right hand on my interpretation are negative for acute fracture or subluxation. The right wrist has a questionable radial styloid fracture on my interpretation and the radiologist does agree. I will place the patient in a wrist splint. She was given Over[place] for pain in the ED. Patient will follow up with her primary care physician who has training and sports medicine. Patient stable for discharge at this time. Impression: 1. Right shoulder contusion 2. Right elbow contusion 3. Right elbow abrasion 4. Right hand contusion 5. Radial styloid fracture Discharge Plan Triage Chief Complaint: Upper Extremity Injury ED Provider: Ramirez Burt Dx/Rx/DC Orders Instructions: ED Possible Wrist Fracture Prescriptions: No Action furosemide 20 mg tablet 20 mg PO 1200 RF: 0 albuterol sulfate 90 mcg/actuation HFA aerosol inhaler 2 puff INHALATION Q6H PRN (Reason: shortness of breath) Qty: 1 RF: 6 umeclidinium-vilanterol 62.5-25 mcg/actuation blister with device 1 inh INHALATION DAILY Qty: 60 RF: 6 simvastatin 20 MG tablet 20 mg PO QHS RF: 0 trazodone 100 MG tablet 200 mg PO QHS RF: 0 linagliptin 5 MG tablet 5 mg PO DAILY RF: 0 gabapentin 300 MG capsule 300 mg PO 0800,1200 RF: 0 gabapentin 600 MG tablet 600 mg PO QHS RF: 0 allopurinol 100 MG tablet 300 mg PO DAILY RF: 0 furosemide 40 MG tablet 40 mg PO 0800 RF: 0 sertraline 100 MG tablet 150 mg PO DAILY RF: 0 ferrous sulfate 325 MG tablet 325 mg PO DAILY RF: 0 indapamide 1.25 MG tablet 1.25 mg PO MOFR RF: 0 lamotrigine 100 MG tablet 100 mg PO DAILY RF: 0 aripiprazole 5 MG tablet 5 mg PO DAILY RF: 0 cholecalciferol (vitamin D3) 1,000 UNIT tablet 1,000 unit PO DAILY RF: 0 bupropion HCl (smoking deter) 150 MG tablet extended release 12 hr 150 mg PO DAILY RF: 0 Potassium Chloride 20 MEQ Tab.Er.Prt 2 tablet PO BID RF: 0 docusate sodium 100 MG capsule 100 mg PO PRN PRN (Reason: Constipation) RF: 0 Primary Care Provider: Hua Mosher Referrals: Hua Mosher MD [Primary Care Provider] - Disposition Disposition: Home, Self Care Discharge Date/Time: 02/19/21 19:14
--- NOTE | 2021-02-19 17:20 | RAD_ITS ---
STUDY: X-RAY - RIGHT ELBOW REASON FOR EXAM: Female, 61 years old. pain TECHNIQUE: 3 view(s) of the elbow. COMPARISON: None. FINDINGS: Please see the impression. RAD/Elbow min 3 Views IMPRESSION: No acute fracture or dislocation the right elbow. Mild osteoarthritis of the elbow joints. No radiographic evidence of joint effusion. Electronically Signed: Manas Montaño MD at 18:24 EDT Tel , Service support ,
[2021-02-19] MEDS: HYDROcodone Bitartrate/Apap 5/325 Tablet PO (17:43)
[2021-02-19 19:13] VITALS: BP 121/74; PULSE 70; RESP 18; O2SAT 99
== END 2021-02-19 19:14 | disposition home or self-care (01) ==
PROVIDERS: Emergency Provider Student in an Organized Health Care Education/Training Program; PCP Family Medicine
DX: S52.514A Nondisplaced fracture of right radial styloid process, initial encounter for closed fracture (principal); S40.011A Contusion of right shoulder, initial encounter; S50.01XA Contusion of right elbow, initial encounter; S50.311A Abrasion of right elbow, initial encounter; S60.221A Contusion of right hand, initial encounter; W19.XXXA Unspecified fall, initial encounter; Y93.9 Activity, unspecified; Y92.9 Unspecified place or not applicable; E78.5 Hyperlipidemia, unspecified; F41.9 Anxiety disorder, unspecified; I12.9 Hypertensive chronic kidney disease with stage 1 through stage 4 chronic kidney disease, or unspecified chronic kidney disease; E11.22 Type 2 diabetes mellitus with diabetic chronic kidney disease; N18.30 Chronic kidney disease, stage 3 unspecified; J44.9 Chronic obstructive pulmonary disease, unspecified; M15.9 Polyosteoarthritis, unspecified; M79.7 Fibromyalgia; M85.80 Other specified disorders of bone density and structure, unspecified site; Z79.84 Long term (current) use of oral hypoglycemic drugs; Z79.899 Other long term (current) drug therapy; F17.210 Nicotine dependence, cigarettes, uncomplicated
CPT/HCPCS: 73030; 73080; 73110; 73130; 99283

== ENCOUNTER 2021-03-06 20:07 | Inpatient (IN) | payer MEDICARE, MEDICAID, SELFPAY ==
[2021-03-06 20:07] VITALS: BP 80/53; PULSE 105; PULSE 79; RESP 16; TEMP 37.2; O2SAT 93; BMI 25.9
[2021-03-06 20:11] VITALS: BP 80/53; PULSE 79; RESP 16; TEMP 37.2; O2SAT 93
[2021-03-06] MEDS: 0.9% Normal Saline 1,000 ML 1000 ML IV ×2 (21:00→21:59)
[2021-03-06 21:02] VITALS: BP 90/58
--- NOTE | 2021-03-06 21:08 | CT_ITS ---
EXAM: CT HEAD WITHOUT INTRAVENOUS CONTRAST : 1960 CLINICAL INDICATION: [place], fell yesterday TECHNIQUE: Multiple axial images were obtained of the head without intravenous contrast. This CT exam was performed using one or more of the following dose reduction techniques: automated exposure control, adjustment of the mA and/or kV according to patient size, and/or use of iterative reconstruction technique. This report was created using [employer] report generation technology. COMPARISON: 07/09/19 FINDINGS: BRAIN AND EXTRA-AXIAL SPACES: Unremarkable. No intra- or extra-axial hemorrhage. No evidence of acute infarct. No intracranial mass or mass effect. There is preservation of the reaves/white matter interface. Posterior fossa structures are unremarkable. Ventricles are appropriate for age. No hydrocephalus. Basal cisterns are patent. BONES/JOINTS: Unremarkable. No discrete lytic or blastic abnormalities. SINUSES: Unremarkable as visualized. Clear. MASTOID AIR CELLS: Unremarkable. Clear. ORBITS: Visualized globes, extraocular muscles, optic nerves and retrobulbar fat appear unremarkable. CT/Brain/Head without Contrast IMPRESSION: Negative head/brain CT without intravenous contrast. Individualized dose optimization techniques were used for this CT. at 2212 Reported and signed by: Luis Overton MD Electronically Signed: Luis Overton MD at 22:11 EDT Tel , Service support ,
--- NOTE | 2021-03-06 21:08 | CT_ITS ---
History: Fall, neck pain. TECHNIQUE: Helically acquired images were obtained of the cervical spine. 2-D reformatted images were reviewed. A radiation dose optimization technique was used for the scan. # of images incl. paperwork: 374. IV contrast dosage and agent: None. COMPARISON: None. FINDINGS: VERTEBRAE: No evidence of fracture or other acute injury. Vertebral body heights maintained. Posterior elements intact. ALIGNMENT: No significant anterior or posterior subluxation. Preservation of the cervical lordosis. INTERVERTEBRAL DISCS: Discectomies and anterior fusion at C3/4 and C6/7. Diffuse degenerative changes of the intervertebral discs. SOFT TISSUES: No prevertebral soft tissue thickening. CT/Spine Cervical without Contras IMPRESSION: No evidence for acute fracture or dislocation in the cervical spine. Degenerative and surgical changes. Individualized dose optimization techniques were used for this CT. at 2218 Reported and signed by: Luis Overton MD Electronically Signed: Luis Overton MD at 22:17 EDT Tel , Service support ,
--- NOTE | 2021-03-06 21:08 | EKG12_ITS ---
Test Reason : DYSRHYTHMIA Blood Pressure : / mmHG Vent. Rate : 097 BPM Atrial Rate : 097 BPM P-R Int : 170 ms QRS Dur : 106 ms QT Int : 424 ms P-R-T Axes : 066 041 035 degrees QTc Int : 538 ms Sinus rhythm with Premature supraventricular complexes Prolonged QT Abnormal ECG Confirmed by LE BE, BON ([id number]), newspaper copy editor ROSA ROSALES ([id number]) on 03/10/2021 1:23:03 PM Referred By: [email or web address] Confirmed By:BON LUJAN MD
--- NOTE | 2021-03-06 21:10 | EDS_ITS ---
HPI History of Present Illness Chief Complaint: Weakness Informant: patient and family Narrative Narrative: Patient is a 61-year-old female who presents to the emergency department for generalized weakness. Apparently patient had a fall yesterday and was on the ground for close to 24 hours. She was scooting around the floor she was too weak to get herself up. The family at bedside states that she has been very tired and unable to keep her self awake. She is never acted like this before in the past. Patient has tingling in her head as well as her upper extremities bilaterally. She does have a headache that is frontal. She denies any vision changes. She has not had any chest pain, shortness of breath or heart palpitations. No abdominal pain or nausea/vomiting/diarrhea. She denies any urinary symptoms. She does have a history of COPD and continues to smoke cigarettes. She has a history of hypertension. On arrival her blood pressure is low. She denies taking extra of her medications. PFSH PFSH Medical History Anxiety Cervical radiculitis Chest pain Chronic back pain CKD (chronic kidney disease) stage 3, GFR 30-59 ml/min COPD (chronic obstructive pulmonary disease) Diabetes mellitus, type II Fibromyalgia Hyperlipidemia Hypertension Tobacco use Home Medications simvastatin 20 mg PO QHS 10/08/15 [History Last Taken 05/17/18] trazodone 200 mg PO QHS 08/23/16 [History Last Taken 05/17/18] linagliptin 5 mg PO DAILY 10/15/17 [History Last Taken 05/18/18] furosemide 20 mg tablet 20 mg PO 1200 tab 11/15/17 [History Last Taken 04/20/18 12:00] gabapentin 300 mg PO 0800,1200 11/28/17 [History Last Taken 09/20/18 08:40] gabapentin 600 mg PO QHS 04/20/18 [History Last Taken 05/17/18] albuterol sulfate 90 mcg/actuation aerosol inhaler 2 puff INHALATION Q6H PRN #1 device 06/18/18 [Rx Last Taken Unknown] allopurinol 300 mg PO DAILY 07/30/18 [History Last Taken Unknown] Potassium Chloride 2 tablet PO BID 07/09/19 [History Last Taken Unknown] aripiprazole 5 mg PO DAILY 07/09/19 [History Last Taken Unknown] bupropion HCl (smoking deter) 150 mg PO DAILY 07/09/19 [History Last Taken Unknown] cholecalciferol (vitamin D3) 1,000 unit PO DAILY 07/09/19 [History Last Taken Unknown] docusate sodium 100 mg PO PRN PRN 07/09/19 [History Last Taken Unknown] ferrous sulfate 325 mg PO DAILY 07/09/19 [History Last Taken Unknown] furosemide 40 mg PO 0800 07/09/19 [History Last Taken Unknown] indapamide 1.25 mg PO MOFR 07/09/19 [History Last Taken Unknown] lamotrigine 100 mg PO DAILY 07/09/19 [History Last Taken Unknown] sertraline 150 mg PO DAILY 07/09/19 [History Last Taken Unknown] umeclidinium 62.5 mcg-vilanterol 25 mcg/actuation powdr for inhalation 1 inh INHALATION DAILY #60 ea 12/17/19 [Rx Last Taken Unknown] aripiprazole mg 03/06/21 [History Last Taken Unknown] Allergy/AdvReac Type Severity Reaction Status Date / Time No Known Allergies Allergy Verified 03/06/21 20:11 Family History (Updated 03/07/21 @ 00:[address] Marnie Valdez MD) Mother Hypertension Father Hypertension Diabetes Surgical History (Updated 03/07/21 @ 00:[address] Marnie Valdez MD) Cervical vertebral fusion history EGD with ph probe (~12/09/17) History of colonoscopy (~12/05/17) History of repair of hiatal hernia History of shoulder surgery History of tubal ligation Hx of cholecystectomy Social History (Updated 03/07/21 @ 00:[address] Marnie Valdez MD) household members: none Smoking Status: Current every day smoker tobacco type: cigarettes Smoking packs per day: 0.5 Smoking cigarettes per day: 10.0 alcohol intake: never substance use type: does not use caffeine: No what type of physical activity do you participate in: none ROS ROS ED Constitutional Constitutional ED: Denies chills or fever(s) Eyes Eyes: Denies change in vision ENT ENT ED: Denies epistaxis or rhinorrhea Cardiovascular Cardiovascular: Denies chest pain or palpitations Respiratory/Chest Respiratory/Chest: Denies cough, dyspnea or dyspnea on exertion Gastrointestinal Gastrointestinal: Denies abdominal pain, diarrhea, nausea or vomiting Genitourinary Genitourinary ED: Denies dysuria, hematuria or urinary frequency Musculoskeletal Musculoskeletal: Reports neck pain; Denies back pain Integumentary Denies rash Neurologic Neurologic: Reports headache(s), paresthesias and weakness; Denies dizziness EXAM Physical Exam Narrative Exam Narrative: Patient does fall asleep and is slow to respond to some questioning but does answer everything appropriately. Const Vital Signs: 03/06/21 20:07 03/06/21 20:11 03/06/21 20:12 Temperature 98.9 F 98.9 F Temperature Source Temporal Temporal Pulse Rate 105 H 79 Respiratory Rate 16 16 Respiratory Effort Normal Non-Labored Respiratory Pattern Normal Blood Pressure 80/53 L 80/53 L Blood Pressure Mean 62 62 Pulse Ox 93 93 Oxygen Delivery Method Room Air Room Air 03/06/21 21:02 03/06/21 21:11 03/06/21 22:00 Temperature 98.5 F 98.7 F Temperature Source Temporal Temporal Pulse Rate 100 97 Respiratory Rate 15 20 H Respiratory Effort Respiratory Pattern Blood Pressure 90/58 L 90/58 L 85/56 L Blood Pressure Mean 68 68 65 Pulse Ox 92 92 Oxygen Delivery Method Room Air Room Air 03/06/21 23:00 Temperature 98.6 F Temperature Source Temporal Pulse Rate 99 Respiratory Rate 19 H Respiratory Effort Respiratory Pattern Blood Pressure 89/53 L Blood Pressure Mean 65 Pulse Ox 93 Oxygen Delivery Method Room Air Positive well developed General Appearance ED: well developed and NAD HEENT Reports normocephalic, head/scalp atraumatic and moist mucous membranes Eyes PERRL and EOMs intact bilaterally Neck no lymphadenopathy and supple Chest Wall inspection of chest normal Resp normal respiratory effort and clear to auscultation bilaterally Auscultation: Negative for rales, rhonchi or wheezes Cardio regular rate, regular rhythm and no murmurs GI normal to inspection, nondistended, normoactive bowel sounds and non-tender Palpation: soft; Negative for guarding or rebound tenderness present Back/Spine no CVA tenderness Cervical Spine: cervical spine tenderness Thoracic Spine / Upper Back: Negative for thoracic spinal tenderness Lumbar Spine / Lower Back: Negative for lumbar spinal tenderness Extremity normal to inspection General Extremety ED: Negative for edema or tenderness General Extremity: Negative for edema Neuro CN's II-XII intact bilaterally and no sensory deficits noted Sensorium / Orientation: alert Motor Exam: strength 5/5 throughout Psych mental status grossly normal Skin no rashes or lesions noted MDM MDM MDM Narrative Medical decision making narrative: Patient presents to the emergency department for generalized weakness. Apparently patient spent yesterday on the ground for 24 hours. She feels like she is too weak to walk at this point. On arrival to the emerge department she is hypotensive. She is started on IV fluids. She is satting 93% on room air in no respiratory distress. She is afebrile. Besides being sleepy but easily arousable she has a benign physical exam. Patient's antibiotics were delayed as we are searching for source of infection. Chest x-ray did not reveal any evidence of pneumonia. Were eventually able to get some urine from her as she was significantly dehydrated. This did show potential for infection. She will be started on broad-spectrum antibiotics. She has a significant leukocytosis. Her lactic acid is elevated. Her CK level is high with mild VILMA. Her potassium is significantly low. She has had hypokalemia before in the past but never to this level. We will replace this through the IV. I did add a magnesium on as well. Patient's blood pressure has remained with a map around 65. With the IV fluids as presented mildly. Case was discussed with the hospitalist who will admit the patient to the ICU. This was all discussed with patient and the family and they are agreeable with this plan. Lab Data Labs: Laboratory Results - last 24 hr 03/06/21 03/06/21 03/06/21 20:16 20:16 20:16 WBC 32.4 H* RBC 4.03 L Hgb 13.5 Hct 40.5 MCV 100.5 H MCH 33.5 H MCHC 33.3 RDW Std Deviation 51.4 H RDW Coeff of Suki 13.8 Plt Count 130 L MPV 9.8 Neut % (Auto) Not Reportable Absolute Neuts (auto) 30.2 H Absolute Lymphs (auto) 0.97 Total Counted 100 Neutrophils % (Manual) 64 Band Neutrophils % 11 H Lymphocytes % (Manual) 3 L Monocytes % (Manual) 4 Metamyelocytes % 17 H Myelocytes % 1 H Differential Comment MANUAL Diff Path Review May foll RBC Morphology NORM C+C Sodium 134 L Potassium 1.9 L* Chloride 97 L Carbon Dioxide 28.0 Anion Gap 9 BUN 20 H Creatinine 1.55 H Estim Creat Clear Calc 34.30 Est GFR (MDRD) Af Amer 44 L Est GFR (MDRD) Non-Af 36 L BUN/Creatinine Ratio 12.9 Glucose 151 H Lactic Acid 5.1 H* Calcium 8.1 L Phosphorus Magnesium Total Bilirubin 0.50 AST 68 H ALT 49 Alkaline Phosphatase 99 Total Creatine Kinase 1888 H Troponin I High Sens 49.7 Total Protein 6.1 L Albumin 2.7 L Globulin 3.4 Albumin/Globulin Ratio 0.8 L Urine Color Urine Clarity Urine pH Ur Specific [place] Urine Protein Urine Glucose (UA) Urine Ketones Urine Occult Blood Urine Nitrite Urine Bilirubin Urine Urobilinogen Ur Leukocyte Esterase Urine RBC Urine WBC Ur Squamous Epith Cells Urine Bacteria Urine Mucus 03/06/21 03/06/21 03/06/21 20:16 20:16 22:35 WBC RBC Hgb Hct MCV MCH MCHC RDW Std Deviation RDW Coeff of [place] Plt Count MPV Neut % (Auto) Absolute Neuts (auto) Absolute Lymphs (auto) Total Counted Neutrophils % (Manual) Band Neutrophils % Lymphocytes % (Manual) Monocytes % (Manual) Metamyelocytes % Myelocytes % Differential Comment Diff Path Review RBC Morphology Sodium Potassium Chloride Carbon Dioxide Anion Gap BUN Creatinine Estim Creat Clear Calc Est GFR (MDRD) Af Amer Est GFR (MDRD) Non-Af BUN/Creatinine Ratio Glucose Lactic Acid Calcium Phosphorus 1.2 L Magnesium 1.1 L Total Bilirubin AST ALT Alkaline Phosphatase Total Creatine Kinase Troponin I High Sens Total Protein Albumin Globulin Albumin/Globulin Ratio Urine Color Yellow Urine Clarity Cloudy Urine pH 6.0 Ur Specific [place] 1.010 Urine Protein 100 H Urine Glucose (UA) Normal Urine Ketones Negative Urine Occult Blood 250 H Urine Nitrite Negative Urine Bilirubin Negative Urine Urobilinogen Normal Ur Leukocyte Esterase 500 H Urine RBC 0-5 SEEN Urine WBC 25-50 SEEN Ur Squamous Epith Cells 0-5 SEEN Urine Bacteria 1+ Urine Mucus 0 SEEN Radiography Diagnostic Testing: Radiology Impression Brain CT 03/06/21 21:08 IMPRESSION: Negative head/brain CT without intravenous contrast. Individualized dose optimization techniques were used for this CT. at 2212 Reported and signed by: Luis Overton MD Electronically Signed: Luis Overton MD at 22:11 EDT Tel , Service support , Cervical Spine CT 03/06/21 21:08 IMPRESSION: No evidence for acute fracture or dislocation in the cervical spine. Degenerative and surgical changes. Individualized dose optimization techniques were used for this CT. at 2218 Reported and signed by: Luis Overton MD Electronically Signed: Luis Overton MD at 22:17 EDT Tel , Service support , Chest X-Ray 03/06/21 21:40 IMPRESSION: No acute radiographic abnormalities. Electronically Signed: Kolton Rose MD at 21:50 EDT Tel , Service support , Discharge Plan Dx/Rx/DC Orders Clinical Impression: Septic shock, UTI (urinary tract infection), Hypokalemia, Rhabdomyolysis, Dehydration Disposition Disposition: Acute Care [facility]
[2021-03-06 21:11] VITALS: BP 90/58; PULSE 100; RESP 15; TEMP 36.9; O2SAT 92
[2021-03-06 21:29] LABS: Hematocrit 40.5 % (37-47); Hemoglobin 13.5 g/dL (12.0-15.0); Mean Corp Hgb Conc 33.3 g/dL (32-36); Mean Corpuscular Hgb 33.5 pg (27.0-32.0); Mean Corpuscular Volume 100.5 fL (81-99); Mean Platelet Vol. 9.8 fl (6.2-12.0); POSITIVE COUNT YES; POSITIVE DIFFERENTIAL YES; POSITIVE MORPHOLOGY YES; Platelet Count 130 K/mm3 (150-450); RBC Distribution Width CV 13.8 % (11.6-14.6); RBC Distribution Width SD 51.4 fl (35.1-43.9); Red Blood Count 4.03 M/mm3 (4.2-5.4); White Blood Count 32.4 K/mm3 (4.4-11.0)
[2021-03-06 21:36] LABS: Differential Indicated MANUAL DIFF
--- NOTE | 2021-03-06 21:40 | RAD_ITS ---
INDICATION: Weakness EXAMINATION/TECHNIQUE: X-RAY - XR Chest 1 View COMPARISON: 07/30/2018. FINDINGS: The lungs are clear. Tortuous and calcified thoracic aorta. The heart is not enlarged. No pleural effusion or pneumothorax. No acute osseous abnormalities. RAD/Chest 1 View (Portable) IMPRESSION: No acute radiographic abnormalities. Electronically Signed: Kolton Rose MD at 21:50 EDT Tel , Service support ,
[2021-03-06 21:50] LABS: Lactic Acid 5.1 mmol/L (0.4-1.9)
[2021-03-06 21:51] LABS: ALB/GLOB Ratio 0.8 RATIO (0.9-2.4); AST(SGOT) 68 U/L (15-37); Alanine Aminotransfer ALT/SGPT 49 U/L (13-56); Albumin, Serum 2.7 g/dL (3.2-5.0); Alkaline Phosphatase 99 U/L (45-117); Anion Gap 9 (5-15); BUN 20 mg/dL (7-18); BUN/Creat Ratio 12.9 RATIO (10-20); CPK Total, Creatine Kinase 1888 U/L (26-192); Calcium,Total 8.1 mg/dL (8.5-10.1); Chloride 97 mmol/L (98-107); Creatinine, Serum 1.55 mg/dL (0.55-1.02); EST Glomerular Filtration Rate 36 mL/min (>60); Est Glom Filt Rate - Afr Amer 44 mL/min (>60); Globulin 3.4 g/dL (2.2-4.2); Glucose 151 mg/dL (74-106); Potassium 1.9 mmol/L (3.5-5.1); Protein, Total 6.1 g/dL (6.4-8.2); Sodium Level 134 mmol/L (136-145); Troponin-I HS 49.7 pg/mL (3.0-53.7)
[2021-03-06 22:00] VITALS: BP 85/56; PULSE 97; RESP 20; TEMP 37.1; O2SAT 92
[2021-03-06 22:11] LABS: Lymphocyte 3 % (19-41); Metamyelocyte 17 % (0-1); Monocyte 4 % (0-10); Myelocyte 1 % (0-0); Neutrophil-Band 11 % (0-5); Neutrophil-Segmented 64 % (47-70); Total Cells Counted 100 (MANUAL DIFF)
[2021-03-06 22:14] LABS: Absolute Neutrophil Count 30.2 X10^3/uL (2.0-7.7); Neutrophil # 30.16 X10^3/uL (2.7-7.7)
[2021-03-06 22:15] LABS: Absolute Lymphocyte Count 0.97 X10^3/uL (0.83-4.51); Differential Comment MANUAL; Lymphocyte # 0.97 X10^3/ul (0.83-4.51); Red Cell Morphology NORM C+C NORMAL (NORM C&C)
[2021-03-06] MEDS: Potassium Chloride 10mEq/100mL 10 MEQ/100 ML IV.SOLN. 100 MEQ IV BOLUS (22:20)
[2021-03-06 22:31] LABS: Magnesium 1.1 mg/dL (1.6-2.6)
[2021-03-06 22:42] LABS: Mucous, Urine 0 SEEN /hpf (<or=2+)
[2021-03-06 22:50] LABS: Color, Urine Yellow (Yellow); Glucose, Dipstick Normal (Normal); Ketone-Dipstick Negative (Negative); Leukocyte Esterase-Dipstick 500 /ul (Negative); Nitrite-Dipstick Negative (Negative); Occult Blood-Urine 250 /ul (Negative); Protein-Dipstick 100 mg/dl (Negative); Urine Bilirubin Dipstick Negative (Negative); Urine Clarity Cloudy (Clear); Urine Urobilinogen Normal (Normal)
[2021-03-06 23:00] VITALS: BP 89/53; PULSE 99; RESP 19; TEMP 37; O2SAT 93
[2021-03-06 23:34] LABS: Bacteria 1+ /hpf (None Seen); Red Blood Cells-Urine 0-5 SEEN /hpf (0-5); Squamous Epithelial Cells - UA 0-5 SEEN /hpf (5-10); White Blood Cells 25-50 SEEN /hpf (0-5)
--- NOTE | 2021-03-06 23:50 | HP.PCM.HOS_ITS ---
HPI - General General Date of Admission: 03/07/21 Date of Service: 03/06/21 Chief Complaint: Lethargy, fatigue, weakness, found on the floor likely there x 24 hours. HPI Narrative The patient is a 61 y/o F w/ PMHx: Diabetes mellitus type II, Chronic Anemia/Fe deficiency, Chronic COPD, Fibromyalgia, HTN, HLD, Tobacco use, CKD stage III un clear subtype, Anxiety and Depression, Chronic back pain/Cervical radiculitis who presents to the [facility] ED on 03/06/21 with history of significant weakness, debility, unable to get herself off the floor laying on the floor through over the last ~ 24 hours although EMS notes story is unclear with complaints of generalized fatigue, weakness and occasional dizziness. Patient found eventually per family. She notes her significant fatigue and lethargy has been more pronounced since the day prior. She does note some mild nausea and emesis following meals recently. She denies any recent urinary symptoms including dysuria, retention, frequency. She denies any abdominal pain, bloating, constipation or diarrhea. She denies any recent fevers or chills. She was evaluated by EMS the day prior given her symptoms and declined to be brought in at that time. Family, children finally encouraged her and she presented tonight. Work-up in the ED included T 98.9, heart rate 79-1 05, BP initially 80/53 with improvement to 90/58, respiratory rate 16, 93% on room air, CBC with WBC 32.4, hemoglobin 13.5, platelet 130, CMP with sodium 134, potassium 1.9, chloride 97, BUN/creatinine 20/1.55, glucose 151, lactic acid 5.1, AST/ALT 68/49, alk phos 99, TCK 1888, chest x-ray with no acute cardiopulmonary findi ngs, CT brain with no acute intracranial findings, CT cervical spine with no evidence for acute fracture or dislocation with degenerative and surgical changes noted, urinalysis with specific [place] 1.010, protein 100, occult blood 250, negative nitrite, leukocyte esterase 500, urine WBCs 25-50, 1+ urine bacteria, urine culture pending per ED, blood culture x2 pending per ED. [facility] Medical History Anxiety Cervical radiculitis Chest pain Chronic back pain CKD (chronic kidney disease) stage 3, GFR 30-59 ml/min COPD (chronic obstructive pulmonary disease) Diabetes mellitus, type II Fibromyalgia Hyperlipidemia Hypertension Tobacco use Home Medications simvastatin 20 mg PO QHS 10/08/15 [History Last Taken 05/17/18] trazodone 200 mg PO QHS 08/23/16 [History Last Taken 05/17/18] linagliptin 5 mg PO DAILY 10/15/17 [History Last Taken 05/18/18] furosemide 20 mg tablet 20 mg PO 1200 tab 11/15/17 [History Last Taken 04/20/18 12:00] gabapentin 300 mg PO 0800,1200 11/28/17 [History Last Taken 09/20/18 08:40] gabapentin 600 mg PO QHS 04/20/18 [History Last Taken 05/17/18] albuterol sulfate 90 mcg/actuation aerosol inhaler 2 puff INHALATION Q6H PRN #1 device 06/18/18 [Rx Last Taken Unknown] allopurinol 300 mg PO DAILY 07/30/18 [History Last Taken Unknown] Potassium Chloride 2 tablet PO BID 07/09/19 [History Last Taken Unknown] aripiprazole 5 mg PO DAILY 07/09/19 [History Last Taken Unknown] bupropion HCl (smoking deter) 150 mg PO DAILY 07/09/19 [History Last Taken Unknown] cholecalciferol (vitamin D3) 1,000 unit PO DAILY 07/09/19 [History Last Taken Unknown] docusate sodium 100 mg PO PRN PRN 07/09/19 [History Last Taken Unknown] ferrous sulfate 325 mg PO DAILY 07/09/19 [History Last Taken Unknown] furosemide 40 mg PO 0800 07/09/19 [History Last Taken Unknown] indapamide 1.25 mg PO MOFR 07/09/19 [History Last Taken Unknown] lamotrigine 100 mg PO DAILY 07/09/19 [History Last Taken Unknown] sertraline 150 mg PO DAILY 07/09/19 [History Last Taken Unknown] umeclidinium 62.5 mcg-vilanterol 25 mcg/actuation powdr for inhalation 1 inh INHALATION DAILY #60 ea 12/17/19 [Rx Last Taken Unknown] aripiprazole mg 03/06/21 [History Last Taken Unknown] Allergy/AdvReac Type Severity Reaction Status Date / Time No Known Allergies Allergy Verified 03/06/21 20:11 Family History (Updated 03/07/21 @ 00:[address] Marnie Valdez MD) Mother Hypertension Father Hypertension Diabetes Surgical History (Updated 03/07/21 @ 00:[address] Marnie Valdez MD) Cervical vertebral fusion history EGD with ph probe (~12/09/17) History of colonoscopy (~12/05/17) History of repair of hiatal hernia History of shoulder surgery History of tubal ligation Hx of cholecystectomy Social History (Updated 03/07/21 @ 00:[address] Marnie Valdez MD) household members: none Smoking Status: Current every day smoker tobacco type: cigarettes Smoking packs per day: 0.5 Smoking cigarettes per day: 10.0 alcohol intake: never substance use type: does not use caffeine: No what type of physical activity do you participate in: none ROS ROS Narrative Admission Review of Systems: CONSTITUTIONAL: No weight loss, fever, chills, + weakness or fatigue. HEENT: Eyes: No visual loss, blurred vision, double vision or yellow sclerae. Ears, Nose, Throat: No hearing loss, sneezing, congestion, runny nose or sore throat. SKIN: No rash or itching, lesions, wounds. CARDIOVASCULAR: No chest pain, chest pressure or chest discomfort, palpitations, edema, orthopnea, syncopal events. RESPIRATORY: No shortness of breath, cough or sputum, wheezing, hemoptysis. GASTROINTESTINAL: + anorexia, nausea, mild generalized abdominal discomfort, emesis, No diarrhea, melena, BRBPR. GENITOURINARY: No dysuria, frequency, urgency or retention. NEUROLOGICAL: No headache, dizziness, syncope, paralysis, ataxia, numbness or tingling in the extremities, focal weakness, change in bowel or bladder control, seizure. MUSCULOSKELETAL: + muscle, back pain, joint pain or stiffness. HEMATOLOGIC: No anemia, bleeding or bruising. LYMPHATICS: No enlarged nodes. No history of splenectomy. PSYCHIATRIC: + history of depression or anxiety. ENDOCRINOLOGIC: No reports of sweating, cold or heat intolerance. No polyuria or polydipsia. ALLERGIES: No history of asthma, hives, eczema or rhinitis. Vital Signs Vital Signs Vital Signs: 03/06/21 20:07 03/06/21 20:11 03/06/21 20:12 Temperature 98.9 F 98.9 F Temperature Source Temporal Temporal Pulse Rate 105 H 79 Respiratory Rate 16 16 Respiratory Effort Normal Non-Labored Respiratory Pattern Normal Blood Pressure 80/53 L 80/53 L Blood Pressure Mean 62 62 Pulse Ox 93 93 Oxygen Delivery Method Room Air Room Air 03/06/21 21:02 03/06/21 21:11 03/06/21 22:00 Temperature 98.5 F 98.7 F Temperature Source Temporal Temporal Pulse Rate 100 97 Respiratory Rate 15 20 H Respiratory Effort Respiratory Pattern Blood Pressure 90/58 L 90/58 L 85/56 L Blood Pressure Mean 68 68 65 Pulse Ox 92 92 Oxygen Delivery Method Room Air Room Air Weight Weight: 156 lb 4.924 oz Body Mass Index (BMI) 25.9 Physical Exam Narrative Physical Examination: General: Improved since ED presentation, awake, alert, oriented self, place, recent events, remains cooperative, seated upright in the ED bed, fatigued and ill-appearing but no distress. Skin: Normal color, decreased turgor, no icterus, no cyanosis, occasional staged ecchymoses, abrasion. HEENT: AT/NC, EOMI, PERRLA, dry MM, no carotid bruits or JVD noted. Lungs: Diminished, greater bases, moderate effort, no rales, ronchi or wheezing. Heart: Improved, mildly tachycardic with regular rhythm; no gallop, rub audible. Abdomen: Soft, mild generalized discomfort to palpation with no rebound or guarding, minimally distended, mildly hyperactive bowel sounds, no obvious HSM. Extremities: No cyanosis, clubbing, or edema. Neurological: Improved since ED presentation, awake, alert, oriented self, place, recent events, remains cooperative, seated upright in the ED bed, fatigued and ill-appearing but no distress, cognitive function improved, now nearing baseline intact; pupils equally reactive to light and accommodation, cranial nerves II-XII grossly normal, moving all 4 extremities, no focal deficits, strength severely global decrease secondary to acute presentation. Psychiatric: Affect appears fatigued, ill-appearing, no acute evidence of depressive or anxiety feelings. Results Lab / Micro Data Result Diagrams: 03/06/21 20:16 03/06/21 20:16 Labs: Laboratory Results - last 24 hr 03/06/21 20:16: WBC 32.4 H*, RBC 4.03 L, Hgb 13.5, Hct 40.5, MCV 100.5 H, MCH 33.5 H, MCHC 33.3, RDW Std Deviation 51.4 H, RDW Coeff of Suki 13.8, Plt Count 130 L, MPV 9.8, Neut % (Auto) Not Reportable, Absolute Neuts (auto) 30.2 H, Absolute Lymphs (auto) 0.97, Total Counted 100, Neutrophils % (Manual) 64, Band Neutrophils % 11 H, Lymphocytes % (Manual) 3 L, Monocytes % (Manual) 4, Metamyelocytes % 17 H, Myelocytes % 1 H, Differential Comment MANUAL, Diff Path Review December, RBC Morphology NORM C+C 03/06/21 20:16: Sodium 134 L, Potassium 1.9 L*, Chloride 97 L, Carbon Dioxide 28.0, Anion Gap 9, BUN 20 H, Creatinine 1.55 H, Estim Creat Clear Calc 34.30, Est GFR (MDRD) Af Amer 44 L, Est GFR (MDRD) Non-Af 36 L, BUN/Creatinine Ratio 12.9, Glucose 151 H, Calcium 8.1 L, Total Bilirubin 0.50, AST 68 H, ALT 49, Alkaline Phosphatase 99, Total Creatine Kinase 1888 H, Troponin I High Sens 49.7, Total Protein 6.1 L, Albumin 2.7 L, Globulin 3.4, Albumin/Globulin Ratio 0.8 L 03/06/21 20:16: Lactic Acid 5.1 H* 03/06/21 20:16: Magnesium 1.1 L 03/06/21 22:35: Urine Color Yellow, Urine Clarity Cloudy, Urine pH 6.0, Ur Specific [place] 1.010, Urine Protein 100 H, Urine Glucose (UA) Normal, Urine Ketones Negative, Urine Occult Blood 250 H, Urine Nitrite Negative, Urine Bilirubin Negative, Urine Urobilinogen Normal, Ur Leukocyte Esterase 500 H, Urine RBC 0-5 SEEN, Urine WBC 25-50 SEEN, Ur Squamous Epith Cells 0-5 SEEN, Urine Bacteria 1+, Urine Mucus 0 SEEN Radiology Impression Brain CT 03/06/21 21:08 IMPRESSION: Negative head/brain CT without intravenous contrast. Individualized dose optimization techniques were used for this CT. at 2212 Reported and signed by: Luis Overton MD Electronically Signed: Luis Overton MD at 22:11 EDT Tel , Service support , Cervical Spine CT 03/06/21 21:08 IMPRESSION: No evidence for acute fracture or dislocation in the cervical spine. Degenerative and surgical changes. Individualized dose optimization techniques were used for this CT. at 2218 Reported and signed by: Luis Overton MD Electronically Signed: Luis Overton MD at 22:17 EDT Tel , Service support , Chest X-Ray 03/06/21 21:40 IMPRESSION: No acute radiographic abnormalities. Electronically Signed: Kolton Rose MD at 21:50 EDT Tel , Service support , Assessment & Plan Assessment/Plan (1) Septic shock: (2) Rhabdomyolysis: QUALIFIERS: Rhabdomyolysis type: non-traumatic Qualified Code(s): M62.82 - Rhabdomyolysis (3) Hypokalemia: (4) UTI (urinary tract infection): QUALIFIERS: Hematuria presence: without hematuria Urinary tract infection type: acute cystitis Qualified Code(s): N30.00 - Acute cystitis without hematuria PLAN: The patient is a 61 y/o F w/ PMHx: Diabetes mellitus type II, Chron ic Anemia/Fe deficiency, Chronic COPD, Fibromyalgia, HTN, HLD, Tobacco use, CKD stage III unclear subtype, Anxiety and Depression, Chronic back pain/Cervical radiculitis who presents to the [facility] ED on 03/06/21 with history of significant weakness, debility, unable to get herself off the floor laying on the floor through over the last ~ 24 hours although EMS notes story is unclear with complaints of generalized fatigue, weakness and occasional dizziness. 1. Acute Septic Shock potentially secondary to acute complicated urinary tract infection w/ evidence of sepsis-induced organ dysfunction/tissue hypoperfusion with WBC 32.4, acute renal insufficiency, lactic acid 5.1, BP 98/58 upon ED presentation w/ associated Acute Infectious Encephalopathy: Will admit patient to the ICU, will request environmental protection economist consultation, maintain on cardiac monitoring, continue IVF bolus per, will trend lactic acid per protocol, will maintain on IV abx regimen w/ IV vancomycin and Zosyn pending cultures and furth er work-up. UA not severe appearing however only source for current presentation, urine culture pending, blood culture x2 pending. Will administer IV vasopressor therapy for persistent hypotension. PT, OT, CM consultations for discharge planning. 2. Severe hypokalemia: Admission K+ 1.9, supplementation initiated in the ED, will obtain magnesium level and supplement if appropriate, will trend BMP through the evening to assure improvement of electrolyte disturbances, closely monitor on telemetry. 3. Chronic Kidney Disease Stage III, unclear subtype w/ Acute Renal Insufficiency: Admission BUN/Cr 20/1.55, baseline renal function 1-1.3 primarily, most recently 01/02/21 1.17, will continue to hydrate given presentation as noted, if any further rise in creatinine consistent with VILMA would hold nephrotoxic regimen, repeat CMP in AM. 4. Acute rhabdomyolysis: Admission TCK 1888, will continue to aggressively hydrate especially given presentation, frequent positional changes, monitor urine output, if necessary may need to increase IV fluids to assure ongoing notable urine output. 5. Chronic COPD: Will maintain on oxygen with wean as tolerated to room air, will hold home inhalers and in the interim continue ATC duonebs, PRN albuterol, HOB, IS parameters. 6. Chronic anemia/Fe Deficiency anemia: Admission hemoglobin 13.5, prior baseline most recently 14.7 12/23/2020, continue iron supplementation CBC trending. 7. Anxiety and depression/bipolar disorder: We will continue patient home trazodone, sertraline, bupropion, aripiprazole, lamotrigine regimen. Will request lamotrigine level to assure not supratherapeutic. 8. Chronic back pain/cervical radiculitis/fibromyalgia: We will continue patient home gabapentin regimen, maintain on fall precautions, positional changes, therapy is consulted as noted above. 9. Tobacco Abuse: Encouraged cessation, inpatient consultation per RT, NR if desired. 10. History of diabetes mellitus type II: Admission glucose 151, patient with prior history of diabetes, last hemoglobin A1c noted 05/27/2018 7.1%, to be cautious will obtain A1c, continue ADA diet with insulin sliding scale given acute presentation but at this time not on any regimen, likely diet controlled. 11. Hypertension: Patient with low BPs upon presentation, will hold patient diuretic regimen as well as indapamide, resume once clinically appropriate, as needed agents in the interim. 12. Hyperlipidemia: Not on regimen, defer to outpatient. 13. LATA: We will initiate BIPAP nightly if amenable. 14. Recent mechanical fall : Patient with recent ED visit 02/19/2021 with mechanical fall while at the grocery store, treated and evaluated for right shoulder contusion, right elbow contusion, right elbow abrasion, right hand contusion and a radial styloid fracture placed in a wrist splint with planned sports medicine outpatient evaluation. We will continue splint, nonweightbearing with this extremity. 15. DVT prophylaxis: SCDs, Lovenox. 16. CODE status: Patient did have healthcare power of ip attorney nor living will set up. Given significant comorbidities strongly encouraged. Discussed CODE status at length including difference between FULL code, DNR-CCA and DNR-CC status. Following discussions about the differences in these status, requested Full Code status. Did discuss patient current presentation frankly with her and her children noting that she is critically ill. Advanced Care Planning Face to Face Time: 16 minutes. Charges/Coding Visit Charges Inpatient E&M: 13639 Init Hosp L3 Procedures Hospitalists Procedures: 48678 Advncd Care Plan 30 Min
[2021-03-07] VITALS (49 sets, daily range): BP systolic 76–182; BP diastolic 49–167; PULSE 91–110; RESP 19–42; TEMP 35.8–39.4; O2SAT 92–99; BMI 29.2
[2021-03-07 00:22] LABS: Phosphorus 1.2 mg/dL (2.5-4.9)
[2021-03-07 01:24] LABS: Reflex Lactate? Y
[2021-03-07] MEDS: 0.9% Normal Saline 1,000 ML 150 ML IV ×2 (01:28→08:29)
[2021-03-07] MEDS: Enoxaparin 30 MG/0.3 ML Syringe SC (01:29)
--- NOTE | 2021-03-07 01:33 | PCM.RX.CS ---
Consult Pharmacy has been consulted to manage selected antiobiotic: Vancomycin Type of Consult: New start Weight used for dosin.58 kg Estimated Creatinine Clearance: 35.56 Goal Trough: 15-20 mcg/mL Pharmacy Plan for Drug Dosing: Pharmacy Service will continue to monitor and adjust dosing as required. Medications Vancomycin HCl (Vancomycin) 1,000 mg in 200 mls @ 200 mls/hr IV Q24H TIFFANIE Vancomycin HCl 1,750 mg/ (Sodium Chloride) 535 mls @ 250 mls/hr IV X1 ONE Stop: 03/07/21 02:08 Last Admin: 03/07/21 00:39 Dose: 250 mls/hr Documented by: Follow-Up Labs: Trough Vancomycin Labs to be done on [date and time ordered]: 03/09 @ 0037
[2021-03-07 01:53] LABS: Anion Gap 7 (5-15); BUN 22 mg/dL (7-18); BUN/Creat Ratio 15.7 RATIO (10-20); Calcium,Total 7.4 mg/dL (8.5-10.1); Chloride 101 mmol/L (98-107); EST Glomerular Filtration Rate 41 mL/min (>60); Est Glom Filt Rate - Afr Amer 49 mL/min (>60); Estimated Creatinine Clearance 33.38 ml/min; Glucose 137 mg/dL (74-106); Lactic Acid 2.2 mmol/L (0.4-1.9); Potassium 2.4 mmol/L (3.5-5.1); Sodium Level 137 mmol/L (136-145)
[2021-03-07 01:55] LABS: Troponin-I HS 59.2 pg/mL (3.0-53.7)
[2021-03-07] MEDS: Potassium Chloride 10mEq/100mL 10 MEQ/100 ML IV.SOLN. 100 MEQ IV BOLUS ×8 (02:47→16:11)
--- NOTE | 2021-03-07 02:50 | CPS ---
Pt refuses PAP at this time
--- NOTE | 2021-03-07 03:28 | CT_ITS ---
EXAM: CT ABDOMEN AND PELVIS WITH INTRAVENOUS CONTRAST : 1960 CLINICAL INDICATION: septic shock TECHNIQUE: Helically acquired images were obtained of the abdomen and pelvis with intravenous contrast. This CT exam was performed using one or more of the following dose reduction techniques: automated exposure control, adjustment of the mA and/or kV according to patient size, and/or use of iterative reconstruction technique. This report was created using [employer] report generation technology. CONTRAST: IV 100mL Isovue-[id number] COMPARISON: None. FINDINGS: LOWER THORAX: Bibasilar atelectasis. No cardiomegaly. No significant pericardial effusion. ABDOMEN: LIVER: Unremarkable. Homogeneous. No focal mass. GALLBLADDER AND BILE DUCTS: Unremarkable. No calcified gallstones. No gallbladder distention or wall edema. No intra- or extrahepatic biliary ductal dilation. PANCREAS: Unremarkable. No focal cystic or solid mass. SPLEEN: Unremarkable. Normal size without focal cystic or solid mass. ADRENALS: Unremarkable. No nodules. KIDNEYS AND URETERS: Unremarkable. Normal renal size and position. No hydronephrosis. STOMACH AND BOWEL: Mild diffuse wall thickening of the colon. No stomach or bowel distention. Surgical changes of the GE junction. PELVIS: APPENDIX: The appendix is normal. BLADDER: Unremarkable. REPRODUCTIVE: Unremarkable as visualized. No mass. ABDOMEN and PELVIS: INTRAPERITONEAL SPACE: Unremarkable. No ascites or other fluid collection. No free air. BONES/JOINTS: Degenerative changes of the spine. No suspicious lytic or blastic abnormality. SOFT TISSUES: Unremarkable. No discrete abdominal or pelvic wall hernia. VASCULATURE: Moderate atherosclerotic changes of the abdominal aorta. Abdominal aorta is non-dilated. LYMPH NODES: Unremarkable. No enlarged lymph nodes. CT/Abdomen/Pelvis W IV Cont ONLY IMPRESSION: Mild diffuse wall thickening of the colon, which may indicate an infectious or inflammatory colitis. Individualized dose optimization techniques were used for this CT. at 0509 Reported and signed by: Luis Overton MD Electronically Signed: Luis Overton MD at 5:08 EDT Tel , Service support ,
--- NOTE | 2021-03-07 03:51 | NURSING ---
To CT scan
[2021-03-07 04:02] LABS: Absolute Lymphocyte Count 0.74 X10^3/uL (0.83-4.51); Absolute Neutrophil Count 12.8 X10^3/uL (2.0-7.7); Basophil# 0.08 X10^3/uL; Basophil% 0.6 % (0-1); Eosinophil# 0.04 X10^3/uL; Eosinophils% 0.3 % (0-5); Hematocrit 36.2 % (37-47); Hemoglobin 12.1 g/dL (12.0-15.0); Lymphocyte # 0.74 X10^3/ul (0.83-4.51); Lymphocyte % 5.1 % (19-41); Mean Corp Hgb Conc 33.4 g/dL (32-36); Mean Corpuscular Hgb 33.2 pg (27.0-32.0); Mean Corpuscular Volume 99.2 fL (81-99); Mean Platelet Vol. 9.5 fl (6.2-12.0); Monocyte% 1.4 % (0-10); NRBC Flagged by Analyzer 0 % (0-5); Neutrophil # 12.83 X10^3/uL (2.7-7.7); Neutrophil % 88.9 % (47-70); POSITIVE COUNT YES; POSITIVE MORPHOLOGY YES; Platelet Count 99 K/mm3 (150-450); RBC Distribution Width CV 13.8 % (11.6-14.6); RBC Distribution Width SD 50.3 fl (35.1-43.9); Red Blood Count 3.65 M/mm3 (4.2-5.4); White Blood Count 14.4 K/mm3 (4.4-11.0)
[2021-03-07 04:03] LABS: Differential Indicated SCAN CRITERIA MET
[2021-03-07 04:21] LABS: Reactive Lymphocyte 1+
[2021-03-07 04:26] LABS: ALB/GLOB Ratio 0.9 RATIO (0.9-2.4); AST(SGOT) 74 U/L (15-37); Alanine Aminotransfer ALT/SGPT 45 U/L (13-56); Albumin, Serum 2.2 g/dL (3.2-5.0); Alkaline Phosphatase 104 U/L (45-117); Anion Gap 9 (5-15); BUN 24 mg/dL (7-18); BUN/Creat Ratio 16.7 RATIO (10-20); CPK Total, Creatine Kinase 2062 U/L (26-192); Calcium,Total 6.9 mg/dL (8.5-10.1); Chloride 104 mmol/L (98-107); Creatinine, Serum 1.44 mg/dL (0.55-1.02); EST Glomerular Filtration Rate 39 mL/min (>60); Est Glom Filt Rate - Afr Amer 48 mL/min (>60); Estimated Creatinine Clearance 32.45 ml/min; Globulin 2.5 g/dL (2.2-4.2); Glucose 91 mg/dL (74-106); Potassium 2.3 mmol/L (3.5-5.1); Protein, Total 4.7 g/dL (6.4-8.2); Sodium Level 140 mmol/L (136-145)
[2021-03-07] MEDS: Acetaminophen 650 MG Suppository RC (05:34)
[2021-03-07 05:41] LABS: Bedside Glucose 95 mg/dL (70-110)
--- NOTE | 2021-03-07 05:55 | RAD_ITS ---
EXAM DESCRIPTION: PORTABLE AP CHEST CLINICAL HISTORY: 61 years Female, Dyspnea, cough Dyspnea, cough COMPARISON: None FINDINGS: The thorax is intact. The heart and mediastinum appear to be within normal limits. The lungs show a patchy infiltrate and atelectasis in the left lower lobe which previously was not seen. The right lung appears essentially normal. RAD/Chest 1 View (Portable) IMPRESSION: Patchy infiltrate in the left lower lobe. Electronically Signed: Dewey Aguilar DO at 11:25 EDT Tel , Service support ,
[2021-03-07 06:05] LABS: Troponin-I HS 80.7 pg/mL (3.0-53.7)
[2021-03-07] MEDS: Ipratropium/Albuterol Sulfate 3 ML AMPUL.NEB INHALATION ×4 (07:00→19:22)
--- NOTE | 2021-03-07 07:17 | CON.PCM.CC_ITS ---
Assessment & Plan Assessment/Plan (1) Ischemic colitis: (2) Stage 2 moderate COPD by GOLD classification: (3) LATA (obstructive sleep apnea): (4) Rhabdomyolysis: QUALIFIERS: Rhabdomyolysis type: non-traumatic Qualified Code(s): M62.82 - Rhabdomyolysis (5) CKD (chronic kidney disease) stage 3, GFR 30-59 ml/min: PLAN: RECOMMENDATIONS: 1. Hold IV fluids, initiate pressors 2. Continue empiric antibiotics 3. Aggressive electrolyte repletion 4. Continue duo nebs, hold on steroids 5. Place central line 6. Hold Lovenox for now IMPRESSIONS: 1. Septic shock secondary to UTI versus bowel ischemia Patient with gram-negative growing in her blood. Patient is on appropriate broad-spectrum antibiotics, but is becoming more hypotensive. Given patient's new oxygen requirements, patient is likely developing pulmonary edema. We will hold IV fluids and initiate pressors. Patient does not have an acute abdomen at this time. Did discuss the case with surgery. We will hold on Lovenox for now given diarrhea with Hemoccult positive stools. 2. Severe hypokalemia from GI losses versus refeeding syndrome Patient does have significant GI losses reported. However, cannot rule out a refeeding syndrome as patient is also on magnesium and phosphorus. We will continue with aggressive electrolyte repletion. Patient will have a central line placed for her septic shock and this should help facilitate aggressive repletion. 3. Acute on chronic CKD stage III Likely prerenal etiology associated with problem #1. Patient does not have any indication for renal replacement therapy at this time, but will have to follow closely. 4. Mild acute rhabdomyolysis Patient with mild elevation of CK. Given patient's hypoxia, will hold off on aggressive fluid resuscitation. If CK continues to increase, fluids and diuretics may be needed concomitantly. 5. Chronic iron deficiency anemia/COPD/anxiety/depression/bipolar/chronic pain syndrome/diabetes mellitus type 2 Complicates care, management, recovery and prognosis. Patient does not appear to be in acute exacerbation COPD at this time. No steroids are indicated. We will continue with bronchodilators. Increased oxygen demand likely secondary to an element of pulmonary edema. We will hold on IV fluids and continue with pressor agents. Okay to continue baseline medications except for antihypertensives. TIME: 35 minutes critical care time spent addressing patient's septic shock, severe electrolyte abnormalities, acute kidney injury, possible ischemic gut, review of all data and collaboration with care team (6 AM to 7 AM) HPI Consult Data Date of Consult: 03/07/21 HPI Narrative HPI Narrative: MARGARITA JOSHI is a 61 F, with past medical history listed below, who presents to [facility] on 03/06/2021 secondary to generalized weakness. Patient reportedly had had a fall 24 hours prior to presentation. Patient has been scooting herself around the floor because she was too weak to stand up. Family had reported this was significantly different from baseline. Patient reportedly had had tingling of her upper extremities bilaterally and a frontal headache. Patient denied any vision changes. Patient had reported diarrhea for 3 days prior to presentation to [facility], but had denied this in the ER. Patient had denied any urinary symptoms. Patient does have a history of COPD and is actively smoking. Patient does have a history of hypertension, but denies any problems with dosing of medications. In the ER, patient was afebrile, but tachycardic on presentation. Patient was hypotensive at 80/53 and saturating well on room air. Patient was started on IV fluids and received empiric antibiotics. Chest x-ray was unrevealing. Patient had mild VILMA and hypokalemia. Patient did have a leukocytosis of 32.4 with significant bandemia. Patient's potassium was noted to be 1.9, creatinine of 1.55 and a lactate of 5.1. CK was almost 2000. Magnesium and Phos were also decreased at 1.[address] of the head was unremarkable and the patient was admitted to the intensive care unit for further evaluation. Since being in the intensive care unit, patient has had 4 stools. Patient was occult positive. Patient has not been started on pressors at this point, but has received aggressive potassium supplementation. Patient was noted to have a T-max of 39.4 and was given rectal Tylenol, but had a bowel movement shortly thereafter. Patient has required supplemental oxygen. Patient is a relatively poor historian. Patient is not able to provide much additional history on her respiratory status at baseline. Patient does not use supplemental oxygen, but does have a CPAP. Patient had refused CPAP overnight, but states she is willing to use her home unit if it can be provided. Given poor historian, review of systems otherwise negative from a constitutional, HEENT, respiratory, cardiovascular, GI, genitourinary, musculoskeletal, skin, neurologic, psychiatric and hematologic system unless stated above. PFSH Medical History Anxiety Cervical radiculitis Chest pain Chronic back pain CKD (chronic kidney disease) stage 3, GFR 30-59 ml/min COPD (chronic obstructive pulmonary disease) CPAP (continuous positive airway pressure) dependence Depression Diabetes mellitus, type II Fibromyalgia Hyperlipidemia Hypertension Smoker Tobacco use Home Medications simvastatin 20 mg PO QHS 10/08/15 [History Last Taken 05/17/18] trazodone 200 mg PO QHS 08/23/16 [History Last Taken 05/17/18] linagliptin 5 mg PO DAILY 10/15/17 [History Last Taken 05/18/18] furosemide 20 mg tablet 20 mg PO 1200 tab 11/15/17 [History Last Taken 04/20/18 12:00] gabapentin 300 mg PO 0800,1200 11/28/17 [History Last Taken 09/20/18 08:40] gabapentin 600 mg PO QHS 04/20/18 [History Last Taken 05/17/18] albuterol sulfate 90 mcg/actuation aerosol inhaler 2 puff INHALATION Q6H PRN #1 device 06/18/18 [Rx Last Taken Unknown] allopurinol 300 mg PO DAILY 07/30/18 [History Last Taken Unknown] Potassium Chloride 2 tablet PO BID 07/09/19 [History Last Taken Unknown] aripiprazole 5 mg PO DAILY 07/09/19 [History Last Taken Unknown] bupropion HCl (smoking deter) 150 mg PO DAILY 07/09/19 [History Last Taken U nknown] cholecalciferol (vitamin D3) 1,000 unit PO DAILY 07/09/19 [History Last Taken Unknown] docusate sodium 100 mg PO PRN PRN 07/09/19 [History Last Taken Unknown] ferrous sulfate 325 mg PO DAILY 07/09/19 [History Last Taken Unknown] furosemide 40 mg PO 0800 07/09/19 [History Last Taken Unknown] indapamide 1.25 mg PO MOFR 07/09/19 [History Last Taken Unknown] lamotrigine 100 mg PO DAILY 07/09/19 [History Last Taken Unknown] sertraline 150 mg PO DAILY 07/09/19 [History Last Taken Unknown] umeclidinium 62.5 mcg-vilanterol 25 mcg/actuation powdr for inhalation 1 inh INHALATION DAILY #60 ea 12/17/19 [Rx Last Taken Unknown] aripiprazole mg 03/06/21 [History Last Taken Unknown] Allergy/AdvReac Type Severity Reaction Status Date / Time No Known Allergies Allergy Verified 03/06/21 20:11 Family History (Updated 03/07/21 @ 00:[address] Marnie Valdez MD) Mother Hypertension Father Hypertension Diabetes Surgical History (Updated 03/07/21 @ 00:[address] Marnie Valdez MD) Cervical vertebral fusion history EGD with ph probe (~12/09/17) History of colonoscopy (~12/05/17) History of repair of hiatal hernia History of shoulder surgery History of tubal ligation Hx of cholecystectomy Social History (Updated 03/07/21 @ 00:[address] Marnie Valdez MD) household members: none Smoking Status: Current every day smoker tobacco type: cigarettes alcohol intake: never substance use type: does not use caffeine: No what type of physical activity do you participate in: none ROS ROS Narrative See HPI Physical Exam Const alert, oriented x3 and no apparent distress General Appearance: cooperative and well developed HEENT normocephalic, head/scalp atraumatic and moist oral mucous membranes Eyes PERRL and EOMs intact bilaterally Neck full ROM and no lymphadenopathy Chest inspection of chest normal Resp normal respiratory effort and no use of accessory muscles Effort and Inspection: able to speak in complete sentences Auscultation: diminished lung sounds; Negative for rales, rhonchi or wheezes Percussion: Negative for dullness Cardio regular rhythm, S1 normal heart sound, S2 normal heart sound, no murmurs, no rub and no gallops Cardio Narrative: Sinus rhythm on telemetry Rate: tachycardic GI Inspection: central obesity Auscultation: hyperactive bowel sounds Palpation: soft; Negative for guarding, rigid or rebound tenderness present no CVA tenderness Extremity no clubbing, cyanosis or edema Skin no rashes or lesions noted Neuro oriented x3, CN's II-XII intact bilaterally, moves all extremities and no focal motor deficits Psych cooperative and affect normal Lab / Micro Data Result Diagrams: 03/07/21 03:45 03/07/21 08:00 Labs: Laboratory Results - last 24 hr 03/06/21 20:16: WBC 32.4 H*, RBC 4.03 L, Hgb 13.5, Hct 40.5, MCV 100.5 H, MCH 33.5 H, MCHC 33.3, RDW Std Deviation 51.4 H, RDW Coeff of Suki 13.8, Plt Count 130 L, MPV 9.8, Neut % (Auto) Not Reportable, Absolute Neuts (auto) 30.2 H, Absolute Lymphs (auto) 0.97, Total Counted 100, Neutrophils % (Manual) 64, Band Neutrophils % 11 H, Lymphocytes % (Manual) 3 L, Monocytes % (Manual) 4, Metamyelocytes % 17 H, Myelocytes % 1 H, Differential Comment MANUAL, Diff Path Review December, RBC Morphology NORM C+C 03/06/21 20:16: Sodium 134 L, Potassium 1.9 L*, Chloride 97 L, Carbon Dioxide 28.0, Anion Gap 9, BUN 20 H, Creatinine 1.55 H, Estim Creat Clear Calc 34.30, Est GFR (MDRD) Af Amer 44 L, Est GFR (MDRD) Non-Af 36 L, BUN/Creatinine Ratio 12.9, Glucose 151 H, Calcium 8.1 L, Total Bilirubin 0.50, AST 68 H, ALT 49, Alkaline Phosphatase 99, Total Creatine Kinase 1888 H, Troponin I High Sens 49.7, Total Protein 6.1 L, Albumin 2.7 L, Globulin 3.4, Albumin/Globulin Ratio 0.8 L 03/06/21 20:16: Lactic Acid 5.1 H* 03/06/21 20:16: Magnesium 1.1 L 03/06/21 20:16: Phosphorus 1.2 L 03/06/21 22:35: Urine Color Yellow, Urine Clarity Cloudy, Urine pH 6.0, Ur Specific [place] 1.010, Urine Protein 100 H, Urine Glucose (UA) Normal, Urine Ketones Negative, Urine Occult Blood 250 H, Urine Nitrite Negative, Urine Bilirubin Negative, Urine Urobilinogen Normal, Ur Leukocyte Esterase 500 H, Urine RBC 0-5 SEEN, Urine WBC 25-50 SEEN, Ur Squamous Epith Cells 0-5 SEEN, Urine Bacteria 1+, Urine Mucus 0 SEEN 03/07/21 01:05: Sodium 137, Potassium 2.4 L*, Chloride 101, Carbon Dioxide 29.0, Anion Gap 7, BUN 22 H, Creatinine 1.40 H, Estim Creat Clear Calc 33.38, Est GFR (MDRD) Af Amer 49 L, Est GFR (MDRD) Non-Af 41 L, BUN/Creatinine Ratio 15.7, Glucose 137 H, Calcium 7.4 L 03/07/21 01:05: Troponin I High Sens 59.2 H* 03/07/21 01:05: Lactic Acid 2.2 H* 03/07/21 03:45: WBC 14.4 H, RBC 3.65 L, Hgb 12.1, Hct 36.2 L, MCV 99.2 H, MCH 33.2 H, MCHC 33.4, RDW Std Deviation 50.3 H, RDW Coeff of Suki 13.8, Plt Count 99 L, MPV 9.5, Immature Gran % (Auto) 3.700 H, Neut % (Auto) 88.9 H, Lymph % (Auto) 5.1 L, [place] % (Auto) 1.4, Eos % (Auto) 0.3, Baso % (Auto) 0.6, Absolute Neuts (auto) 12.8 H, Absolute Lymphs (auto) 0.74 L, Nucleated RBC % 0, Reactive Lymphocytes 1+ 03/07/21 03:45: Sodium 140, Potassium 2.3 L*, Chloride 104, Carbon Dioxide 27.0, Anion Gap 9, BUN 24 H, Creatinine 1.44 H, Estim Creat Clear Calc 32.45, Est GFR (MDRD) Af Amer 48 L, Est GFR (MDRD) Non-Af 39 L, BUN/Creatinine Ratio 16.7, Glucose 91, Calcium 6.9 L, Total Bilirubin 0.70, AST 74 H, ALT 45, Alkaline Phosphatase 104, Total Creatine Kinase 2062 H, Total Protein 4.7 L, Albumin 2.2 L, Globulin 2.5, Albumin/Globulin Ratio 0.9 03/07/21 03:45: Troponin I High Sens 80.7 H* 03/07/21 05:38: POC Glucose 95 Micro: Microbiology 03/06/21 21:45 Blood Culture (Wb) - Anticubital Right Blood Culture - Preliminary 03/07/21 02:05 Mucosa - Nose Respiratory Panel (PCR) - Final 03/07/21 02:30 Stool Stool Occult Blood (SHAYLA) - Final Occult Blood Positive 03/06/21 22:35 Urine Catheter - Catheter Legionella Antigen - Final 03/06/21 22:35 Urine Catheter - Catheter Streptococcus pneumoniae Antigen (M - Final Radiology Impression Brain CT 03/06/21 21:08 IMPRESSION: Negative head/brain CT without intravenous contrast. Individualized dose optimization techniques were used for this CT. at 2212 Reported and signed by: Luis Overton MD Electronically Signed: Luis Overton MD at 22:11 EDT Tel , Service support , Cervical Spine CT 03/06/21 21:08 IMPRESSION: No evidence for acute fracture or dislocation in the cervical spine. Degenerative and surgical changes. Individualized dose optimization techniques were used for this CT. at 2218 Reported and signed by: Luis Overton MD Electronically Signed: Luis Overton MD at 22:17 EDT Tel , Service support , Chest X-Ray 03/06/21 21:40 IMPRESSION: No acute radiographic abnormalities. Electronically Signed: Kolton Rose MD at 21:50 EDT Tel , Service support , Abdomen/Pelvis CT 03/07/21 03:28 IMPRESSION: Mild diffuse wall thickening of the colon, which may indicate an infectious or inflammatory colitis. Individualized dose optimization techniques were used for this CT. at 0509 Reported and signed by: Luis Overton MD Electronically Signed: Luis Overton MD at 5:08 EDT Tel , Service support , Charges/Coding Procedures Hospitalists Procedures: [id number] [facility] 1st Hr
--- NOTE | 2021-03-07 07:37 | CON.PCM.SX_ITS ---
Assessment & Plan Assessment/Plan (1) Lower GI bleed: PLAN: Patient is having diarrhea with blood mixed in with it. Patient presented hypotensive and septic. Pressure still in the 80s. Patient was given over 2 L bolus. I am unsure if the hypotension caused the colitis that is seen on the CT scan and the bleeding if so that would be ischemic colitis but she is also growing gram-negative's in her blood and I am unsure if this is from the urine or if the colitis started first and she is septic from infectious colitis. Stool studies pending. C. difficile pending. Continue volume resuscitation and she may have sips of clears and ice chips. Jason Clemente MD Pager: [facility] [address] [place] [address], [address] [place] [address] Office: HPI Consult Data Date of Consult: 03/07/21 HPI Narrative HPI Narrative: MARGARITA JOSHI, is a 61 F who presents with fatigue and lethargy. Patient was admitted for possible urosepsis. Patient is not complaining of abdominal pain but she is saying that she is having diarrhea and there are blood specks in the diarrhea. PFSH Medical History Anxiety Cervical radiculitis Chest pain Chronic back pain CKD (chronic kidney disease) stage 3, GFR 30-59 ml/min COPD (chronic obstructive pulmonary disease) CPAP (continuous positive airway pressure) dependence Depression Diabetes mellitus, type II Fibromyalgia Hyperlipidemia Hypertension Smoker Tobacco use Home Medications simvastatin 20 mg PO QHS 10/08/15 [History Last Taken 05/17/18] trazodone 200 mg PO QHS 08/23/16 [History Last Taken 05/17/18] linagliptin 5 mg PO DAILY 10/15/17 [History Last Taken 05/18/18] furosemide 20 mg tablet 20 mg PO 1200 tab 11/15/17 [History Last Taken 04/20/18 12:00] gabapentin 300 mg PO 0800,1200 11/28/17 [History Last Taken 09/20/18 08:40] gabapentin 600 mg PO QHS 04/20/18 [History Last Taken 05/17/18] albuterol sulfate 90 mcg/actuation aerosol inhaler 2 puff INHALATION Q6H PRN #1 device 06/18/18 [Rx Last Taken Unknown] allopurinol 300 mg PO DAILY 07/30/18 [History Last Taken Unknown] Potassium Chloride 2 tablet PO BID 07/09/19 [History Last Taken Unknown] aripiprazole 5 mg PO DAILY 07/09/19 [History Last Taken Unknown] bupropion HCl (smoking deter) 150 mg PO DAILY 07/09/19 [History Last Taken Unknown] cholecalciferol (vitamin D3) 1,000 unit PO DAILY 07/09/19 [History Last Taken Unknown] docusate sodium 100 mg PO PRN PRN 07/09/19 [History Last Taken Unknown] ferrous sulfate 325 mg PO DAILY 07/09/19 [History Last Taken Unknown] furosemide 40 mg PO 0800 07/09/19 [History Last Taken Unknown] indapamide 1.25 mg PO MOFR 07/09/19 [History Last Taken Unknown] lamotrigine 100 mg PO DAILY 07/09/19 [History Last Taken Unknown] sertraline 150 mg PO DAILY 07/09/19 [History Last Taken Unknown] umeclidinium 62.5 mcg-vilanterol 25 mcg/actuation powdr for inhalation 1 inh INHALATION DAILY #60 ea 12/17/19 [Rx Last Taken Unknown] aripiprazole mg 03/06/21 [History Last Taken Unknown] Allergy/AdvReac Type Severity Reaction Status Date / Time No Known Allergies Allergy Verified 03/06/21 20:11 Family History (Updated 03/07/21 @ 00:[address] Marnie Valdez MD) Mother Hypertension Father Hypertension Diabetes Surgical History (Updated 03/07/21 @ 00:[address] Marnie Valdez MD) Cervical vertebral fusion history EGD with ph probe (~12/09/17) History of colonoscopy (~12/05/17) History of repair of hiatal hernia History of shoulder surgery History of tubal ligation Hx of cholecystectomy Social History (Updated 03/07/21 @ 00:[address] Marnie Valdez MD) household members: none Smoking Status: Current every day smoker tobacco type: cigarettes alcohol intake: never substance use type: does not use caffeine: No what type of physical activity do you participate in: none ROS ROS Narrative See HPI Constitutional Constitutional: Denies chills or fever(s) Eyes Eyes: Denies change in vision ENT HEENT: Denies epistaxis or rhinorrhea Cardiovascular Cardiovascular: Denies chest pain or palpitations Respiratory/Chest Respiratory/Chest: Denies cough, dyspnea or dyspnea on exertion Gastrointestinal Gastrointestinal: Reports diarrhea; Denies abdominal pain, nausea or vomiting Genitourinary Genitourinary: Denies dysuria, hematuria or urinary frequency Musculoskeletal Musculoskeletal: Reports neck pain; Denies back pain Integumentary Integumentary: Denies rash Neurologic Neurologic: Reports headache(s), paresthesias and weakness; Denies dizziness Physical Exam Const alert General Appearance: cooperative HEENT normocephalic Neck full ROM Cardio Rate: tachycardic GI soft to palpation and non-tender Extremity General Extremity: normal exam except as noted Neuro CN's II-XII intact bilaterally Lab / Micro Data Result Diagrams: 03/07/21 03:45 03/07/21 03:45 Labs: Laboratory Results - last 24 hr 03/06/21 20:16: WBC 32.4 H*, RBC 4.03 L, Hgb 13.5, Hct 40.5, MCV 100.5 H, MCH 33.5 H, MCHC 33.3, RDW Std Deviation 51.4 H, RDW Coeff of Suki 13.8, Plt Count 130 L, MPV 9.8, Neut % (Auto) Not Reportable, Absolute Neuts (auto) 30.2 H, Absolute Lymphs (auto) 0.97, Total Counted 100, Neutrophils % (Manual) 64, Band Neutrophils % 11 H, Lymphocytes % (Manual) 3 L, Monocytes % (Manual) 4, Me tamyelocytes % 17 H, Myelocytes % 1 H, Differential Comment MANUAL, Diff Path Review [place], RBC Morphology NORM C+C 03/06/21 20:16: Sodium 134 L, Potassium 1.9 L*, Chloride 97 L, Carbon Dioxide 28.0, Anion Gap 9, BUN 20 H, Creatinine 1.55 H, Estim Creat Clear Calc 34.30, Est GFR (MDRD) Af Amer 44 L, Est GFR (MDRD) Non-Af 36 L, BUN/Creatinine Ratio 12.9, Glucose 151 H, Calcium 8.1 L, Total Bilirubin 0.50, AST 68 H, ALT 49, Alkaline Phosphatase 99, Total Creatine Kinase 1888 H, Troponin I High Sens 49.7, Total Protein 6.1 L, Albumin 2.7 L, Globulin 3.4, Albumin/Globulin Ratio 0.8 L 08/01/21 20:16: Lactic Acid 5.1 H* 03/06/21 20:16: Magnesium 1.1 L 03/06/21 20:16: Phosphorus 1.2 L 03/06/21 22:35: Urine Color Yellow, Urine Clarity Cloudy, Urine pH 6.0, Ur Specific [place] 1.010, Urine Protein 100 H, Urine Glucose (UA) Normal, Urine Ketones Negative, Urine Occult Blood 250 H, Urine Nitrite Negative, Urine Bilirubin Negative, Urine Urobilinogen Normal, Ur Leukocyte Esterase 500 H, Urine RBC 0-5 SEEN, Urine WBC 25-50 SEEN, Ur Squamous Epith Cells 0-5 SEEN, Urine Bacteria 1+, Urine Mucus 0 SEEN 03/07/21 01:05: Sodium 137, Potassium 2.4 L*, Chloride 101, Carbon Dioxide 29.0, Anion Gap 7, BUN 22 H, Creatinine 1.40 H, Estim Creat Clear Calc 33.38, Est GFR (MDRD) Af Amer 49 L, Est GFR (MDRD) Non-Af 41 L, BUN/Creatinine Ratio 15.7, Glucose 137 H, Calcium 7.4 L 03/07/21 01:05: Troponin I High Sens 59.2 H* 03/07/21 01:05: Lactic Acid 2.2 H* 03/07/21 03:45: WBC 14.4 H, RBC 3.65 L, Hgb 12.1, Hct 36.2 L, MCV 99.2 H, MCH 33.2 H, MCHC 33.4, RDW Std Deviation 50.3 H, RDW Coeff of Suki 13.8, Plt Count 99 L, MPV 9.5, Immature Gran % (Auto) 3.700 H, Neut % (Auto) 88.9 H, Lymph % (Auto) 5.1 L, [place] % (Auto) 1.4, Eos % (Auto) 0.3, Baso % (Auto) 0.6, Absolute Neuts (auto) 12.8 H, Absolute Lymphs (auto) 0.74 L, Nucleated RBC % 0, Reactive Lymphocytes 1+ 03/07/21 03:45: Sodium 140, Potassium 2.3 L*, Chloride 104, Carbon Dioxide 27.0, Anion Gap 9, BUN 24 H, Creatinine 1.44 H, Estim Creat Clear Calc 32.45, Est GFR (MDRD) Af Amer 48 L, Est GFR (MDRD) Non-Af 39 L, BUN/Creatinine Ratio 16.7, Glucose 91, Calcium 6.9 L, Total Bilirubin 0.70, AST 74 H, ALT 45, Alkaline Phosphatase 104, Total Creatine Kinase 2062 H, Total Protein 4.7 L, Albumin 2.2 L, Globulin 2.5, Albumin/Globulin Ratio 0.9 03/07/21 03:45: Troponin I High Sens 80.7 H* 03/07/21 05:38: POC Glucose 95 Micro: Microbiology 03/06/21 21:45 Blood Culture (Wb) - Anticubital Right Blood Culture - Preliminary 03/07/21 02:05 Mucosa - Nose Respiratory Panel (PCR) - Final 03/07/21 02:30 Stool Stool Occult Blood (SHAYLA) - Final Occult Blood Positive 03/06/21 22:35 Urine Catheter - Catheter Legionella Antigen - Final 03/06/21 22:35 Urine Catheter - Catheter Streptococcus pneumoniae Antigen (M - Final Radiology Impression Brain CT 03/06/21 21:08 IMPRESSION: Negative head/brain CT without intravenous contrast. Individualized dose optimization techniques were used for this CT. at 2212 Reported and signed by: Luis Overton MD Electronically Signed: Luis Overton MD at 22:11 EDT Tel , Service support , Cervical Spine CT 03/06/21 21:08 IMPRESSION: No evidence for acute fracture or dislocation in the cervical spine. Degenerative and surgical changes. Individualized dose optimization techniques were used for this CT. at 2218 Reported and signed by: Luis Overton MD Electronically Signed: Luis Overton MD at 22:17 EDT Tel , Service support , Chest X-Ray 08/01/21 21:40 IMPRESSION: No acute radiographic abnormalities. Electronically Signed: Kolton Rose MD at 21:50 EDT Tel , Service support , Abdomen/Pelvis CT 03/07/21 03:28 IMPRESSION: Mild diffuse wall thickening of the colon, which may indicate an infectious or inflammatory colitis. Individualized dose optimization techniques were used for this CT. at 0509 Reported and signed by: Luis Overton MD Electronically Signed: Luis Overton MD at 5:08 EDT Tel , Service support ,
[2021-03-07] MEDS: Gabapentin 300 MG Capsule PO (08:29)
[2021-03-07] MEDS: Ferrous Sulfate 325 MG Tablet PO (08:29)
[2021-03-07] MEDS: Cholecalciferol (VIT D3) 25 MCG TABLET (1,000 UNITS) PO (08:30)
[2021-03-07] MEDS: ARIPiprazole 5 MG Tablet PO (08:30)
[2021-03-07] MEDS: lamoTRIgine 100 MG Tablet PO (08:30)
[2021-03-07] MEDS: buPROPion (XL) 150 MG TABLET.XL PO (08:31)
[2021-03-07] MEDS: Sertraline 100 MG Tablet 150 MG PO (08:31)
[2021-03-07] MEDS: Allopurinol 300 MG Tablet PO (08:31)
[2021-03-07 08:46] LABS: Hemoglobin A1c 5.7 % (3.8-5.6)
[2021-03-07 08:47] LABS: Anion Gap 8 (5-15); BUN 25 mg/dL (7-18); BUN/Creat Ratio 15.9 RATIO (10-20); Chloride 105 mmol/L (98-107); Creatinine, Serum 1.57 mg/dL (0.55-1.02); EST Glomerular Filtration Rate 36 mL/min (>60); Est Glom Filt Rate - Afr Amer 43 mL/min (>60); Estimated Creatinine Clearance 29.76 ml/min; Glucose 87 mg/dL (74-106); Magnesium 1.8 mg/dL (1.6-2.6); Potassium 2.2 mmol/L (3.5-5.1); Sodium Level 138 mmol/L (136-145)
[2021-03-07 09:57] LABS: Phosphorus 2.3 mg/dL (2.5-4.9)
--- NOTE | 2021-03-07 10:30 | CASEMGMT ---
RN CM Face to Face with patient for initial transition planning/care coordination assessment. RN CM introduced self and role at [facility]. Patient lying in bed, alert and oriented. Patient willing to participate in assessment and is able to answer all questions appropriately. Care providers, pharmacy, and demographics verified. Patient wishes to discharge home, will monitor for HHC pending progress with therapy. Patient states she has no further needs or concerns at this time. CM to follow for discharge planning needs that may arise. 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 Patient states she is independent at home. Transportation: self, son, daughter DME/HHC: patient states she has shower chair, grab bars, walker, medical alert, and cpap through [facility]. Will monitor for need for home oxygen and HHC pending course of treatment. Patient states she has aides through waiver program and Kim Rutledge is her CM. Disposition Plan: Patient to discharge home with aide services, family support, and follow-up plans in place. Cecile RUTHERFORD, RN, CM
--- NOTE | 2021-03-07 11:10 | PCM.PN.HOSP ---
Subjective Subjective Hypotensive overnight, plan will be to place a central line for her IV pressors. Otherwise feels slightly improved with improved white count and respiratory status. Blood cultures gram-negative rods. Objective Data Objective Data Vital Signs: Vital Signs Temp Pulse Resp BP Pulse Ox 100.5 F H 96 20 H 76/57 L 97 03/07/21 08:00 03/07/21 08:57 03/07/21 08:57 03/07/21 08:57 03/07/21 08:57 Oxygen Flow Rate (L/min) 2 Oxygen Delivery Method Nasal Cannula Weight: 156 lb 8.451 oz Body Mass Index (BMI) 29.2 Intake & Output: Intake and Output for Last 24 Hours 03/06/21 03/07/21 03/08/21 03:59 03:59 03:59 Intake Total 3315 / 3315 1644.0 / 1644.0 Output Total 625 / 625 Balance 3315 / 3315 1019.0 / 1019.0 Lab / Micro Data Result Diagrams: 03/07/21 03:45 03/07/21 08:00 Labs: Laboratory Results - last 24 hr 03/06/21 20:16: WBC 32.4 H*, RBC 4.03 L, Hgb 13.5, Hct 40.5, MCV 100.5 H, MCH 33.5 H, MCHC 33.3, RDW Std Deviation 51.4 H, RDW Coeff of Suki 13.8, Plt Count 130 L, MPV 9.8, Neut % (Auto) Not Reportable, Absolute Neuts (auto) 30.2 H, Absolute Lymphs (auto) 0.97, Total Counted 100, Neutrophils % (Manual) 64, Band Neutrophils % 11 H, Lymphocytes % (Manual) 3 L, Monocytes % (Manual) 4, Metamyelocytes % 17 H, Myelocytes % 1 H, Differential Comment MANUAL, Diff Path Review May , RBC Morphology NORM C+C 03/06/21 20:16: Sodium 134 L, Potassium 1.9 L*, Chloride 97 L, Carbon Dioxide 28.0, Anion Gap 9, BUN 20 H, Creatinine 1.55 H, Estim Creat Clear Calc 34.30, Est GFR (MDRD) Af Amer 44 L, Est GFR (MDRD) Non-Af 36 L, BUN/Creatinine Ratio 12.9, Glucose 151 H, Calcium 8.1 L, Total Bilirubin 0.50, AST 68 H, ALT 49, Alkaline Phosphatase 99, Total Creatine Kinase 1888 H, Troponin I High Sens 49.7, Total Protein 6.1 L, Albumin 2.7 L, Globulin 3.4, Albumin/Globulin Ratio 0.8 L 03/06/21 20:16: Lactic Acid 5.1 H* 03/06/21 20:16: Magnesium 1.1 L 03/06/21 20:16: Phosphorus 1.2 L 03/06/21 22:35: Urine Color Yellow, Urine Clarity Cloudy, Urine pH 6.0, Ur Specific [place] 1.010, Urine Protein 100 H, Urine Glucose (UA) Normal, Urine Ketones Negative, Urine Occult Blood 250 H, Urine Nitrite Negative, Urine Bilirubin Negative, Urine Urobilinogen Normal, Ur Leukocyte Esterase 500 H, Urine RBC 0-5 SEEN, Urine WBC 25-50 SEEN, Ur Squamous Epith Cells 0-5 SEEN, Urine Bacteria 1+, Urine Mucus 0 SEEN 03/07/21 01:05: Sodium 137, Potassium 2.4 L*, Chloride 101, Carbon Dioxide 29.0, Anion Gap 7, BUN 22 H, Creatinine 1.40 H, Estim Creat Clear Calc 33.38, Est GFR (MDRD) Af Amer 49 L, Est GFR (MDRD) Non-Af 41 L, BUN/Creatinine Ratio 15.7, Glucose 137 H, Calcium 7.4 L 03/07/21 01:05: Troponin I High Sens 59.2 H* 03/07/21 01:05: Lactic Acid 2.2 H* 03/07/21 03:45: WBC 14.4 H, RBC 3.65 L, Hgb 12.1, Hct 36.2 L, MCV 99.2 H, MCH 33.2 H, MCHC 33.4, RDW Std Deviation 50.3 H, RDW Coeff of Suki 13.8, Plt Count 99 L, MPV 9.5, Immature Gran % (Auto) 3.700 H, Neut % (Auto) 88.9 H, Lymph % (Auto) 5.1 L, [place] % (Auto) 1.4, Eos % (Auto) 0.3, Baso % (Auto) 0.6, Absolute Neuts (auto) 12.8 H, Absolute Lymphs (auto) 0.74 L, Nucleated RBC % 0, Reactive Lymphocytes 1+ 03/07/21 03:45: Sodium 140, Potassium 2.3 L*, Chloride 104, Carbon Dioxide 27.0, Anion Gap 9, BUN 24 H, Creatinine 1.44 H, Estim Creat Clear Calc 32.45, Est GFR (MDRD) Af Amer 48 L, Est GFR (MDRD) Non-Af 39 L, BUN/Creatinine Ratio 16.7, Glucose 91, Calcium 6.9 L, Total Bilirubin 0.70, AST 74 H, ALT 45, Alkaline Phosphatase 104, Total Creatine Kinase 2062 H, Total Protein 4.7 L, Albumin 2.2 L, Globulin 2.5, Albumin/Globulin Ratio 0.9 03/07/21 03:45: Hemoglobin A1c 5.7 H 03/07/21 03:45: Troponin I High Sens 80.7 H* 03/07/21 05:38: POC Glucose 95 03/07/21 08:00: Sodium 138, Potassium 2.2 L*, Chloride 105, Carbon Dioxide 25.0, Anion Gap 8, BUN 25 H, Creatinine 1.57 H, Estim Creat Clear Calc 29.76, Est GFR (MDRD) Af Amer 43 L, Est GFR (MDRD) Non-Af 36 L, BUN/Creatinine Ratio 15.9, Glucose 87, Calcium 7.0 L, Magnesium 1.8 03/07/21 08:00: Phosphorus 2.3 L Micro: Microbiology 03/07/21 06:24 Stool C. difficile DNA Amplification - Final 03/06/21 22:08 Blood Culture (Wb) - Anticubital Left Blood Culture - Preliminary 03/06/21 21:45 Blood Culture (Wb) - Anticubital Right Blood Culture - Preliminary 03/07/21 02:05 Mucosa - Nose Respiratory Panel (PCR) - Final 03/07/21 02:30 Stool Stool Occult Blood (SHAYLA) - Final Occult Blood Positive 03/06/21 22:35 Urine Catheter - Catheter Legionella Antigen - Final 03/06/21 22:35 Urine Catheter - Catheter Streptococcus pneumoniae Antigen (M - Final Radiography Diagnostic Testing: Radiology Impression Brain CT 03/06/21 21:08 IMPRESSION: Negative head/brain CT without intravenous contrast. Individualized dose optimization techniques were used for this CT. at 2212 Reported and signed by: Luis Overton MD Electronically Signed: Luis Overton MD at 22:11 EDT Tel , Service support , Cervical Spine CT 03/06/21 21:08 IMPRESSION: No evidence for acute fracture or dislocation in the cervical spine. Degenerative and surgical changes. Individualized dose optimization techniques were used for this CT. at 2218 Reported and signed by: Luis Overton MD Electronically Signed: Luis Overton MD at 22:17 EDT Tel , Service support , Chest X-Ray 03/06/21 21:40 IMPRESSION: No acute radiographic abnormalities. Electronically Signed: Kolton Rose MD at 21:50 EDT Tel , Service support , Abdomen/Pelvis CT 03/07/21 03:28 IMPRESSION: Mild diffuse wall thickening of the colon, which may indicate an infectious or inflammatory colitis. Individualized dose optimization techniques were used for this CT. at 0509 Reported and signed by: Luis Overton MD Electronically Signed: Luis Overton MD at 5:08 EDT Tel , Service support , Physical Exam Const alert, oriented x3 and no apparent distress General Appearance: cooperative HEENT normocephalic and moist oral mucous membranes Eyes PERRL, EOMs intact bilaterally and conjunctivae normal Neck supple and no JVD Resp normal respiratory effort, no retractions, no use of accessory muscles and clear to auscultation bilaterally Auscultation: Negative for crackles, rales, rhonchi or wheezes Cardio regular rate, regular rhythm, S1 normal heart sound, S2 normal heart sound and no murmurs GI soft to palpation, non-tender and non-distended; Negative for hepatosplenomegaly Extremity no clubbing, cyanosis or edema Skin no rashes or lesions noted Neuro no focal motor deficits and no sensory deficits noted Psych affect normal Appearance: appropriate Assessment & Plan Assessment/Plan (1) Septic shock: (2) Rhabdomyolysis: QUALIFIERS: Rhabdomyolysis type: non-traumatic Qualified Code(s): M62.82 - Rhabdomyolysis (3) Hypokalemia: (4) UTI (urinary tract infection): QUALIFIERS: Hematuria presence: without hematuria Urinary tract infection type: acute cystitis Qualified Code(s): N30.00 - Acute cystitis without hematuria PLAN: 1. Acute Septic Shock potentially secondary to acute complicated urinary tract infection w/ evidence of sepsis-induced organ dysfunction/tissue hypoperfusion with WBC 32.4, acute renal insufficiency, lactic acid 5.1, BP 98/58 upon ED presentation w/ associated Acute Infectious Encephalopathy: Will admit patient to the ICU, will request commercial real estate associate consultation, maintain on cardiac monitoring, continue IVF bolus per, will trend lactic acid per protocol, will maintain on IV abx regimen w/ IV vancomycin and Zosyn pending cultures and further work-up. UA not severe appearing however only source for current presentation, urine culture pending, blood culture x2 pending. Will administer IV vasopressor therapy for persistent hypotension. PT, OT, CM consultations for discharge planning. 03/07/2021: Gram-negative rods in blood, continue with antibiotics. Central line to be placed for IV pressors 2. Severe hypokalemia: Admission K+ 1.9, supplementation initiated in the ED, will obtain magnesium level and supplement if appropriate, will trend BMP through the evening to assure improvement of electrolyte disturbances, closely monitor on telemetry. 03/07/2021: Continue to replace, will recheck in the morning with mag and Phos 3. Chronic Kidney Disease Stage III, unclear subtype w/ Acute Renal Insufficiency: Admission BUN/Cr 20/1.55, baseline renal function 1-1.3 primarily, most recently 01/02/21 1.17, will continue to hydrate given presentation as noted, if any further rise in creatinine consistent with VILMA would hold nephrotoxic regimen, repeat CMP in AM. 03/07/2021: We will continue to monitor renal function, currently stable 4. Acute rhabdomyolysis: Admission TCK 1888, will continue to aggressively hydrate especially given presentation, frequent positional changes, monitor urine output, if necessary may need to increase IV fluids to assure ongoing notable urine output. 03/07/2021: Slight increase in her CPK today, continue with IV fluids 5. Chronic COPD: Will maintain on oxygen with wean as tolerated to room air, will hold home inhalers and in the interim continue ATC duonebs, PRN albuterol, HOB, IS parameters. 6. Chronic anemia/Fe Deficiency anemia: Admission hemoglobin 13.5, prior baseline most recently 14.7 12/23/2020, continue iron supplementation CBC trending. 03/07/2021: Continue to monitor 7. Anxiety and depression/bipolar disorder: We will continue patient home trazodone, sertraline, bupropion, aripiprazole, lamotrigine regimen. Will request lamotrigine level to assure not supratherapeutic. 8. Chronic back pain/cervical radiculitis/fibromyalgia: We will continue patient home gabapentin regimen, maintain on fall precautions, positional changes, therapy is consulted as noted above. 9. Tobacco Abuse: Encouraged cessation, inpatient consultation per RT, NR if desired. 10. History of diabetes mellitus type II: Admission glucose 151, patient with prior history of diabetes, last hemoglobin A1c noted 05/27/2018 7.1%, to be cautious will obtain A1c, continue ADA diet with insulin sliding scale given acute presentation but at this time not on any regimen, likely diet controlled. 03/07/2021: We will continue to monitor and make adjustments as necessary 11. Hypertension: Patient with low BPs upon presentation, will hold patient diuretic regimen as well as indapamide, resume once clinically appropriate, as needed agents in the interim. 12. Hyperlipidemia: Not on regimen, defer to outpatient. 13. LATA: We will initiate BIPAP nightly if amenable. 14. Recent mechanical fall : Patient with recent ED visit 02/19/2021 with mechanical fall while at the grocery store, treated and evaluated for right shoulder contusion, right elbow contusion, right elbow abrasion, right hand contusion and a radial styloid fracture placed in a wrist splint with planned sports medicine outpatient evaluation. We will continue splint, nonweightbearing with this extremity. 03/07/2021: Once better from ICU standpoint, will have her evaluated by PT/OT for possible placement 15. DVT prophylaxis: SCDs, Lovenox. Charges/Coding Visit Charges Inpatient E&M: 51454 Subs Hosp L2
[2021-03-07 12:15] LABS: Bedside Glucose 100 mg/dL (70-110)
--- NOTE | 2021-03-07 12:43 | RAD_ITS ---
EXAM DESCRIPTION: PORTABLE AP CHEST CLINICAL HISTORY: 61 years Female, central line placement RIJ central line placement RIJ COMPARISON: Previous portable chest obtained earlier on 03/07/2021 FINDINGS: A right IJ CVP line catheter is noted in place with its tip at the right cavoatrial junction. The rest of the thorax is intact. The heart and mediastinum appear to be within normal limits. The lungs again show patchy alveolar infiltrate in the left cardiophrenic angle. At this time there is additional patchy infiltrate seen in the left upper lobe. There appears to be a faint patchy infiltrate in the right lung base. These pneumonic infiltrates have increased when compared with the previous study. RAD/Chest 1 View (Portable) IMPRESSION: 1. A right IJ CVP line catheter is noted in place in good position. 2. Patchy pneumonic infiltrates in the left upper lobe and left lung base and possibly right lung base which have increased. Electronically Signed: Dewey Aguilar DO at 13:55 EDT Tel , Service support ,
--- NOTE | 2021-03-07 12:58 | PCM.OP.BLANK ---
Operative Report Central line placement procedure note Indication: IV access/hemodynamic instability/vasoactive medications Procedure: A time-out was completed to verify correct patient, indication, medication allergies, procedure, coagulation studies, informed consent signed, and equipment needed. The patient was placed in the supine position for a central line placement to the rt IJ vein. The patients rt neck was prepped using chlorhexidine and a full body sterile drape was applied. 1% lidocaine was used to anesthetize the surrounding skin. A 7fr 16 cm blue guard triple lumen catheter introduced into the internal jugular vein using the modified Seldinger technique with the assistance of ultrasound. The catheter was threaded smoothly over the guidewire, the guidewire was removed easily, nonpulsatile blood returned. All ports were aspirated of air and flushed with sterile saline. The catheter was sutured in place and covered with an occlusive dressing impregnated with chlorhexidine. Post-procedure: The patient tolerated the procedure well. Vital signs remained stable. EBL 5cc. No complications. Chest X Ray ordered to confirm tip placement and the absence of pneumothorax. Procedures Hospitalists Procedures: [id number] Insert Non-tunnel CV Cath
[2021-03-07 13:31] LABS: Pathologist Review Reviewed
--- NOTE | 2021-03-07 15:29 | CASEMGMT ---
Social Work Patient active with [facility] services per RN CM. Telephone call to Irene COWAN. Irene updated on patient admission. Patient active with Kim Rutledge as field case manager. Patient has a medical alert button and aides 2 days a week for 3 hours each day. Will continue to follow as needed. Becky ALAMO, MIGUEL
[2021-03-07 17:46] LABS: Bedside Glucose 113 mg/dL (70-110)
[2021-03-07] MEDS: Atorvastatin Calcium 10 MG Tablet PO (21:39)
[2021-03-07] MEDS: Gabapentin 600 MG Tablet PO (21:40)
[2021-03-07] MEDS: 0.9% Saline Lock 10 ML Syringe IV (21:43)
[2021-03-08] VITALS (34 sets, daily range): BP systolic 85–127; BP diastolic 52–95; PULSE 74–103; RESP 16–29; TEMP 36.6–37.3; O2SAT 90–99
[2021-03-08] MEDS: Vancomycin IV 1,000 MG/200 ML BAG 200 MG IV (00:24)
[2021-03-08 04:50] LABS: Hematocrit 36.2 % (37-47); Hemoglobin 12.1 g/dL (12.0-15.0); Mean Corp Hgb Conc 33.4 g/dL (32-36); Mean Corpuscular Hgb 33.1 pg (27.0-32.0); Mean Corpuscular Volume 98.9 fL (81-99); Mean Platelet Vol. 10.5 fl (6.2-12.0); POSITIVE COUNT YES; POSITIVE DIFFERENTIAL YES; POSITIVE MORPHOLOGY YES; Platelet Count 85 K/mm3 (150-450); RBC Distribution Width CV 14.5 % (11.6-14.6); RBC Distribution Width SD 52.9 fl (35.1-43.9); Red Blood Count 3.66 M/mm3 (4.2-5.4)
[2021-03-08 04:57] LABS: Differential Indicated MANUAL DIFF
[2021-03-08 04:58] LABS: White Blood Count 33.5 K/mm3 (4.4-11.0)
[2021-03-08 04:59] LABS: Anion Gap 11 (5-15); BUN 32 mg/dL (7-18); BUN/Creat Ratio 19.2 RATIO (10-20); Calcium,Total 7.5 mg/dL (8.5-10.1); Chloride 107 mmol/L (98-107); Creatinine, Serum 1.67 mg/dL (0.55-1.02); EST Glomerular Filtration Rate 33 mL/min (>60); Est Glom Filt Rate - Afr Amer 40 mL/min (>60); Estimated Creatinine Clearance 27.98 ml/min; Glucose 109 mg/dL (74-106); Phosphorus 3.4 mg/dL (2.5-4.9); Potassium 2.4 mmol/L (3.5-5.1); Sodium Level 141 mmol/L (136-145)
[2021-03-08 05:15] LABS: Metamyelocyte 3 % (0-1); Myelocyte 4 % (0-0); Neutrophil-Band 8 % (0-5)
[2021-03-08 05:16] LABS: Lymphocyte 2 % (19-41); Neutrophil-Segmented 79 % (47-70); Promyelocyte 1 % (0-0)
[2021-03-08 05:17] LABS: Monocyte 3 % (0-10)
[2021-03-08 05:18] LABS: Anisocytosis 1+; Platelet Estimate MOD DEC (ADEQ); Red Cell Morphology NORM C+C NORMAL (NORM C&C)
[2021-03-08 05:31] LABS: Absolute Neutrophil Count 29.1 X10^3/uL (2.0-7.7)
[2021-03-08 05:33] LABS: Absolute Lymphocyte Count 0.67 X10^3/uL (0.83-4.51)
[2021-03-08] MEDS: Ipratropium/Albuterol Sulfate 3 ML AMPUL.NEB INHALATION ×4 (06:29→18:52)
[2021-03-08 06:41] LABS: Bedside Glucose 105 mg/dL (70-110)
--- NOTE | 2021-03-08 07:04 | PN.CC_ITS ---
Assessment & Plan Assessment/Plan (1) Ischemic colitis: (2) Stage 2 moderate COPD by GOLD classification: (3) LATA (obstructive sleep apnea): (4) Rhabdomyolysis: QUALIFIERS: Rhabdomyolysis type: non-traumatic Qualified Code(s): M62.82 - Rhabdomyolysis (5) CKD (chronic kidney disease) stage 3, GFR 30-59 ml/min: PLAN: RECOMMENDATIONS: 1. Wean pressors as possible per protocol 2. Continue empiric antibiotics 3. Aggressive electrolyte repletion 4. Continue duo nebs, hold on steroids 5. Appreciate surgical recommendations 6. Attempt to get out of bed as tolerated with therapy IMPRESSIONS: 1. Septic shock secondary to UTI versus bowel ischemia Patient with gram-negative growing in her blood. Patient is on appropriate broad-spectrum antibiotics. Given patient's new oxygen requirements, patient is likely developing pulmonary edema. We will continue to hold IV fluids and titrate pressors. Patient does not have an acute abdomen at this time. Surgery is following. We will hold on Lovenox for now given diarrhea with Hemoccult positive stools. 2. Severe hypokalemia from GI losses versus refeeding syndrome Patient does have significant GI losses reported. However, cannot rule out a refeeding syndrome as patient is also low on magnesium and phosphorus initially. We will continue with aggressive electrolyte repletion. Patient does have a central line, so aggressive potassium repletion has been ordered 3. Acute on chronic CKD stage III Likely prerenal etiology associated with problem #1. Patient does not have any indication for renal replacement therapy at this time, but will have to follow closely. 4. Mild acute rhabdomyolysis Patient with mild elevation of CK. Given patient's hypoxia, will hold off on aggressive fluid resuscitation. If CK continues to increase, fluids and diuretics may be needed concomitantly. 5. Chronic iron deficiency anemia/COPD/anxiety/depression/bipolar/chronic pain syndrome/diabetes mellitus type 2 Complicates care, management, recovery and prognosis. Patient does not appear to be in acute exacerbation COPD at this time. No steroids are indicated. We will continue with bronchodilators. Increased oxygen demand likely secondary to an element of pulmonary edema. We will hold on IV fluids and continue with pressor agents. Okay to continue baseline medications except for antihyp ertensives. TIME: 32 minutes critical care time spent addressing patient's septic shock, severe electrolyte abnormalities, acute kidney injury, possible ischemic gut, review of all data and collaboration with care team (5:45 AM to 6:45 AM) Subjective Subjective Patient did okay overnight. Patient continues to report subjective improvement in overall condition. Patient is still requiring pressors to maintain saturations. No muscle cramps, nausea or vomiting has been reported. Patient is still having some abdominal discomfort, but has not shown any signs of acute abdomen overnight. Objective Data Objective Data Vital Signs: Vital Signs Temp Pulse Resp BP Pulse Ox 36.7 C 95 25 H 92/57 L 94 03/08/21 06:00 03/08/21 06:00 03/08/21 06:00 03/08/21 06:00 03/08/21 06:00 Oxygen Flow Rate (L/min) 2 Oxygen Delivery Method Nasal Cannula Weight: 73.2 kg Body Mass Index (BMI) 29.2 Intake & Output: Intake and Output for Last 24 Hours 03/06/21 03/07/21 03/08/21 23:59 23:59 23:59 Intake Total 2099 / 2099 4522.57 / 4661.37 501.85 / 501.85 Output Total 1775 / 1775 700 / 700 Balance 2099 2747.57 / 2886.37 -198.15 / -198.15 Medical Nutrition Assessment Dietitian: Nutrition Therapy Diagnosis Start: 03/07/21 11:37 Freq: Status: Active Protocol: Document 03/07/21 11:51 SLA (Rec: 03/07/21 11:51 SLA [id number]) Nutrition Malnutrition Evidence of Malnutrition Exists No Intake Problem Inadequate Oral Intake Etiology related to acute illness Signs/Symptoms as evidenced by diarrhea x 3 days captain assistant and currently NPO Status Active Problem Recommendation Dietitian Recommendations/Changes As medically able, rec diet as tolerated to Cardiac/ Consistent CHO Lab / Micro Data Result Diagrams: 03/08/21 04:10 03/08/21 04:10 Labs: Laboratory Results - last 24 hr 03/06/21 20:16: Diff Path Review Reviewed 03/07/21 03:45: Hemoglobin A1c 5.7 H 03/07/21 08:00: Sodium 138, Potassium 2.2 L*, Chloride 105, Carbon Dioxide 25.0, Anion Gap 8, BUN 25 H, Creatinine 1.57 H, Estim Creat Clear Calc 29.76, Est GFR (MDRD) Af Amer 43 L, Est GFR (MDRD) Non-Af 36 L, BUN/Creatinine Ratio 15.9, Glucose 87, Calcium 7.0 L, Magnesium 1.8 03/07/21 08:00: Phosphorus 2.3 L 03/07/21 12:11: POC Glucose 100 03/07/21 17:43: POC Glucose 113 H 03/08/21 00:21: POC Glucose 105 03/08/21 04:10: WBC 33.5 H*, RBC 3.66 L, Hgb 12.1, Hct 36.2 L, MCV 98.9, MCH 33.1 H, MCHC 33.4, RDW Std Deviation 52.9 H, RDW Coeff of [place]uki 14.5, Plt Count 85 L, MPV 10.5, Neut % (Auto) Not Reportable, Absolute Neuts (auto) 29.1 H, Absolute Lymphs (auto) 0.67 L, Neutrophils % (Manual) 79 H, Band Neutrophils % 8 H, Lymphocytes % (Manual) 2 L, Monocytes % (Manual) 3, Metamyelocytes % 3 H, Myelocytes % 4 H, Promyelocytes % 1 H, Diff Path Review December foll, Platelet Estimate MOD DEC, RBC Morphology NORM C+C, Anisocytosis 1+ 03/08/21 04:10: Sodium 141, Potassium 2.4 L*, Chloride 107, Carbon Dioxide 23.0, Anion Gap 11, BUN 32 H, Creatinine 1.67 H, Estim Creat Clear Calc 27.98, Est GFR (MDRD) Af Amer 40 L, Est GFR (MDRD) Non-Af 33 L, BUN/Creatinine Ratio 19.2, Glucose 109 H, Calcium 7.5 L, Phosphorus 3.4, Magnesium 2.0 Micro: Microbiology 03/07/21 06:24 Stool C. difficile DNA Amplification - Final 03/06/21 22:08 Blood Culture (Wb) - Anticubital Left Blood Culture - Preliminary 03/06/21 21:45 Blood Culture (Wb) - Anticubital Right Blood Culture - Preliminary 03/07/21 02:05 Mucosa - Nose Respiratory Panel (PCR) - Final 03/07/21 02:30 Stool Stool Occult Blood (SHAYLA) - Final Occult Blood Positive 03/06/21 22:35 Urine Catheter - Catheter Legionella Antigen - Final 03/06/21 22:35 Urine Catheter - Catheter Streptococcus pneumoniae Antigen (M - Final Radiography Diagnostic Testing: Radiology Impression Chest X-Ray 03/07/21 05:55 IMPRESSION: Patchy infiltrate in the left lower lobe. Electronically Signed: Dewey AguilarDO at 11:25 EDT Tel , Service support , Chest X-Ray 03/07/21 12:43 IMPRESSION: 1. A right IJ CVP line catheter is noted in place in good position. 2. Patchy pneumonic infiltrates in the left upper lobe and left lung base and possibly right lung base which have increased. Electronically Signed: Dewey DO Lauren at 13:55 EDT Tel , Service support , Physical Exam Const alert, oriented x3 and no apparent distress General Appearance: cooperative and well developed HEENT normocephalic, head/scalp atraumatic and moist oral mucous membranes Eyes PERRL and EOMs intact bilaterally Neck full ROM and no lymphadenopathy Neck Narrative: Right IJ line is clean, dry and intact Chest inspection of chest normal Resp normal respiratory effort and no use of accessory muscles Effort and Inspection: able to speak in complete sentences Auscultation: diminished lung sounds; Negative for rales, rhonchi or wheezes Percussion: Negative for dullness Cardio regular rhythm, S1 normal heart sound, S2 normal heart sound, no murmurs, no rub and no gallops Rate: tachycardic GI Inspection: central obesity Auscultation: normoactive bowel sounds Palpation: soft and tender; Negative for guarding, rigid or rebound tenderness present no CVA tenderness Extremity no clubbing, cyanosis or edema Skin no rashes or lesions noted Neuro oriented x3, CN's II-XII intact bilaterally, moves all extremities and no focal motor deficits Psych cooperative and affect normal Charges/Coding Procedures Hospitalists Procedures: [id number] Critial Care 1st Hr
[2021-03-08] MEDS: Cholecalciferol (VIT D3) 25 MCG TABLET (1,000 UNITS) PO (09:40)
[2021-03-08] MEDS: Ferrous Sulfate 325 MG Tablet PO (09:41)
[2021-03-08] MEDS: Gabapentin 300 MG Capsule PO ×2 (09:41→15:18)
[2021-03-08] MEDS: lamoTRIgine 100 MG Tablet PO (09:41)
[2021-03-08] MEDS: Potassium Chloride Oral Tablet 20 MEQ PO ×2 (09:41→18:55)
[2021-03-08] MEDS: ARIPiprazole 5 MG Tablet PO (09:42)
[2021-03-08] MEDS: buPROPion (XL) 150 MG TABLET.XL PO (09:43)
[2021-03-08] MEDS: Allopurinol 300 MG Tablet PO (09:44)
[2021-03-08] MEDS: Sertraline 100 MG Tablet 150 MG PO (09:44)
--- NOTE | 2021-03-08 09:47 | PCM.PN.HOSP ---
Subjective Subjective , denies any abdominal pain.No issues overnight Still on Levophed no issues overnight, denies any abdominal pain. Still on Levophed. Objective Data Objective Data Vital Signs: Vital Signs Temp Pulse Resp BP Pulse Ox 98.4 F 95 29 H 107/65 95 03/08/21 09:23 03/08/21 09:23 03/08/21 09:23 03/08/21 09:23 03/08/21 09:23 Oxygen Flow Rate (L/min) 2 Oxygen Delivery Method Nasal Cannula Weight: 161 lb 6.054 oz Body Mass Index (BMI) 29.2 Intake & Output: Intake and Output for Last 24 Hours 03/07/21 03/08/21 03/09/21 03:59 03:59 03:59 Intake Total 3315 / 3315 3752.77 / 3771.57 233.64 / 233.64 Output Total 1775 / 1775 700 / 700 Balance 3315 / 3315 1977.77 / 1996.57 -466.36 / -466.36 Medical Nutrition Assessment Dietitian: Nutrition Therapy Diagnosis Start: 03/07/21 11:37 Freq: Status: Active Protocol: Document 03/07/21 11:51 SLA (Rec: 03/07/21 11:51 SLA [id number]) Nutrition Malnutrition Evidence of Malnutrition Exists No Intake Problem Inadequate Oral Intake Etiology related to acute illness Signs/Symptoms as evidenced by diarrhea x 3 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 Status Active Problem Recommendation Dietitian Recommendations/Changes As medically able, rec diet as tolerated to Cardiac/ Consistent CHO Lab / Micro Data Result Diagrams: 03/08/21 04:10 03/08/21 04:10 Labs: Laboratory Results - last 24 hr 03/06/21 20:16: Diff Path Review Reviewed 03/07/21 08:00: Phosphorus 2.3 L 03/07/21 12:11: POC Glucose 100 03/07/21 17:43: POC Glucose 113 H 03/08/21 00:21: POC Glucose 105 03/08/21 04:10: WBC 33.5 H*, RBC 3.66 L, Hgb 12.1, Hct 36.2 L, MCV 98.9, MCH 33.1 H, MCHC 33.4, RDW Std Deviation 52.9 H, RDW Coeff of Suki 14.5, Plt Count 85 L, MPV 10.5, Neut % (Auto) Not Reportable, Absolute Neuts (auto) 29.1 H, Absolute Lymphs (auto) 0.67 L, Neutrophils % (Manual) 79 H, Band Neutrophils % 8 H, Lymphocytes % (Manual) 2 L, Monocytes % (Manual) 3, Metamyelocytes % 3 H, Myelocytes % 4 H, Promyelocytes % 1 H, Diff Path Review May foll, Platelet Estimate MOD DEC, RBC Morphology NORM C+C, Anisocytosis 1+ 03/08/21 04:10: Sodium 141, Potassium 2.4 L*, Chloride 107, Carbon Dioxide 23.0, Anion Gap 11, BUN 32 H, Creatinine 1.67 H, Estim Creat Clear Calc 27.98, Est GFR (MDRD) Af Amer 40 L, Est GFR (MDRD) Non-Af 33 L, BUN/Creatinine Ratio 19.2, Glucose 109 H, Calcium 7.5 L, Phosphorus 3.4, Magnesium 2.0 Micro: Microbiology 03/06/21 22:08 Blood Culture (Wb) - Anticubital Left Blood Culture - Preliminary Gram negative javid 03/06/21 21:45 Blood Culture (Wb) - Anticubital Right Blood Culture - Preliminary Gram negative javid 03/07/21 06:24 Stool C. difficile DNA Amplification - Final 03/07/21 02:05 Mucosa - Nose Respiratory Panel (PCR) - Final 03/07/21 02:30 Stool Stool Occult Blood (SHAYAL) - Final Occult Blood Positive 03/06/21 22:35 Urine Catheter - Catheter Legionella Antigen - Final 03/06/21 22:35 Urine Catheter - Catheter Streptococcus pneumoniae Antigen (M - Final Radiography Diagnostic Testing: Radiology Impression Chest X-Ray 03/07/21 05:55 IMPRESSION: Patchy infiltrate in the left lower lobe. Electronically Signed: Dewey Aguilar DO at 11:25 EDT Tel , Service support , Chest X-Ray 03/07/21 12:43 IMPRESSION: 1. A right IJ CVP line catheter is noted in place in good position. 2. Patchy pneumonic infiltrates in the left upper lobe and left lung base and possibly right lung base which have increased. Electronically Signed: Dewey Aguilar DO at 13:55 EDT Tel , Service support , Physical Exam Const alert, oriented x3 and no apparent distress General Appearance: cooperative HEENT normocephalic and moist oral mucous membranes Eyes PERRL, EOMs intact bilaterally and conjunctivae normal Neck supple and no JVD Resp normal respiratory effort, no retractions, no use of accessory muscles and clear to auscultation bilaterally Auscultation: Negative for crackles, rales, rhonchi or wheezes Cardio regular rhythm, S1 normal heart sound, S2 normal heart sound and no murmurs Rate: tachycardic GI soft to palpation, non-tender and non-distended; Negative for hepatosplenomegaly Extremity no clubbing, cyanosis or edema Skin no rashes or lesions noted Neuro no focal motor deficits and no sensory deficits noted Psych affect normal Appearance: appropriate Assessment & Plan Assessment/Plan (1) Septic shock: (2) Rhabdomyolysis: QUALIFIERS: Rhabdomyolysis type: non-traumatic Qualified Code(s): M62.82 - Rhabdomyolysis (3) Hypokalemia: (4) UTI (urinary tract infection): QUALIFIERS: Urinary tract infection type: acute cystitis Hematuria presence: without hematuria Qualified Code(s): N30.00 - Acute cystitis without hematuria PLAN: 1. 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 UA not severe appearing however only source for current presentation, urine culture pending, blood culture x2 pending. Will administer IV vasopressor therapy for persistent hypotension. PT, OT, CM consultations for discharge planning. 03/07/2021: Gram-negative rods in blood, continue with antibiotics. Central line to be placed for IV pressors 03/08/2021: Awaiting speciation and sensitivities of her blood cultures, central line in place. White count doubled overnight but she remains afebrile and denies any significant abdominal discomfort, appreciate general surgery's assistance 2. Severe hypokalemia: Admission K+ 1.9, supplementation initiated in the ED, will obtain magnesium level and supplement if appropriate, will trend BMP through the evening to assure improvement of electrolyte disturbances, closely monitor on telemetry. 03/07/2021: Continue to replace, will recheck in the morning with mag and Phos 3. Chronic Kidney Disease Stage III, unclear subtype w/ Acute Renal Insufficiency: Admission BUN/Cr /1.55, baseline renal function 1-1.3 primarily, most recently 01/02/21 1.17, will continue to hydrate given presentation as noted, if any further rise in creatinine consistent with VILMA would hold nephrotoxic regimen, repeat CMP in AM. 03/07/2021: We will continue to monitor renal function, currently stable 4. Acute rhabdomyolysis: Admission TCK 1888, will continue to aggressively hydrate especially given presentation, frequent positional changes, monitor urine output, if necessary may need to increase IV fluids to assure ongoing notable urine output. 03/07/2021: Slight increase in her CPK today, continue with IV fluids 5. Chronic COPD: Will maintain on oxygen with wean as tolerated to room air, will hold home inhalers and in the interim continue ATC duonebs, PRN albuterol, HOB, IS parameters. 6. Chronic anemia/Fe Deficiency anemia: Admission hemoglobin 13.5, prior baseline most recently 14.7 12/23/2020, continue iron supplementation CBC trending. 03/07/2021: Continue to monitor 7. Anxiety and depression/bipolar disorder: We will continue patient home trazodone, sertraline, bupropion, aripiprazole, lamotrigine regimen. Will request lamotrigine level to assure not supratherapeutic. 8. Chronic back pain/cervical radiculitis/fibromyalgia: We will continue patient home gabapentin regimen, maintain on fall precautions, positional changes, therapy is consulted as noted above. 9. Tobacco Abuse: Encouraged cessation, inpatient consultation per RT, NR if desired. 10. History of diabetes mellitus type II: Admission glucose 151, patient with prior history of diabetes, last hemoglobin A1c noted 05/27/2018 7.1%, to be cautious will obtain A1c, continue ADA diet with insulin sliding scale given acute presentation but at this time not on any regimen, likely diet controlled. 03/07/2021: We will continue to monitor and make adjustments as necessary 11. Hypertension: Patient with low BPs upon presentation, will hold patient diuretic regimen as well as indapamide, resume once clinically appropriate, as needed agents in the interim. 12. Hyperlipidemia: Not on regimen, defer to outpatient. 13. LATA: We will initiate BIPAP nightly if amenable. 14. Recent mechanical fall : Patient with recent ED visit 02/19/2021 with mechanical fall while at the grocery store, treated and evaluated for right shoulder contusion, right elbow contusion, right elbow abrasion, right hand contusion and a radial styloid fracture placed in a wrist splint with planned sports medicine outpatient evaluation. We will continue splint, nonweightbearing with this extremity. 03/07/2021: Once better from ICU standpoint, will have her evaluated by PT/OT for possible placement 15. DVT prophylaxis: SCDs, Lovenox. Charges/Coding Visit Charges Inpatient E&M: 65126 Subs Hosp L2
[2021-03-08 12:16] LABS: Bedside Glucose 93 mg/dL (70-110)
[2021-03-08 12:16] LABS: Bedside Glucose 114 mg/dL (70-110)
[2021-03-08 12:49] LABS: Pathologist Review Reviewed
--- NOTE | 2021-03-08 13:56 | CASEMGMT ---
Social Work Telephone call from Winter Fam, . Winter is currently the [employer] call center operations manager covering for patient. This social worker school updated Winter on patient status. Winter ask to be contacted when patient discharges. Winter . Will continue to follow. Becky ALAMO, MIGUEL
--- NOTE | 2021-03-08 14:21 | CASEMGMT ---
MICHAEL STERLING NOTE: Pt qualifies for a Palliative referral per the [facility] palliative screening tool at this time. Dr Elizabethonins made aware but is not agreeable to Palliative referral at this time. Curt RUTHERFORD RN CM
[2021-03-08 16:51] LABS: Bedside Glucose 101 mg/dL (70-110)
[2021-03-08] MEDS: Gabapentin 600 MG Tablet PO (22:12)
[2021-03-08] MEDS: Atorvastatin Calcium 10 MG Tablet PO (22:13)
[2021-03-08 22:26] LABS: Bedside Glucose 92 mg/dL (70-110)
[2021-03-09] VITALS (43 sets, daily range): BP systolic 87–115; BP diastolic 46–84; PULSE 77–104; RESP 18–28; TEMP 36.4–37.6; O2SAT 90–100
[2021-03-09] MEDS: CHLORHEXIDINE GLUC 2% CLOTH 1 EACH TOWELETTE TOPICAL (04:54)
[2021-03-09] MEDS: 0.9% Saline Lock 10 ML Syringe IV ×2 (05:37→21:51)
[2021-03-09 05:46] LABS: Bedside Glucose 139 mg/dL (70-110)
[2021-03-09 05:55] LABS: Hematocrit 33.9 % (37-47); Hemoglobin 11.6 g/dL (12.0-15.0); Mean Corp Hgb Conc 34.2 g/dL (32-36); Mean Corpuscular Hgb 33.6 pg (27.0-32.0); Mean Corpuscular Volume 98.3 fL (81-99); Mean Platelet Vol. 10.4 fl (6.2-12.0); POSITIVE COUNT YES; Platelet Count 77 K/mm3 (150-450); RBC Distribution Width CV 14.6 % (11.6-14.6); RBC Distribution Width SD 52.9 fl (35.1-43.9); Red Blood Count 3.45 M/mm3 (4.2-5.4); White Blood Count 21.3 K/mm3 (4.4-11.0)
[2021-03-09 05:56] LABS: Scan Indicated on CBC? Y/N YES- FLAGS NOTED
[2021-03-09 06:04] LABS: Anion Gap 8 (5-15); BUN 28 mg/dL (7-18); BUN/Creat Ratio 18.1 RATIO (10-20); Calcium,Total 8.3 mg/dL (8.5-10.1); Chloride 110 mmol/L (98-107); Creatinine, Serum 1.55 mg/dL (0.55-1.02); EST Glomerular Filtration Rate 36 mL/min (>60); Est Glom Filt Rate - Afr Amer 44 mL/min (>60); Estimated Creatinine Clearance 30.15 ml/min; Glucose 114 mg/dL (74-106); Sodium Level 142 mmol/L (136-145)
--- NOTE | 2021-03-09 07:10 | PCM.PN.INT ---
Assessment & Plan Assessment/Plan (1) Ischemic colitis: (2) Stage 2 moderate COPD by GOLD classification: (3) LATA (obstructive sleep apnea): (4) Rhabdomyolysis: QUALIFIERS: Rhabdomyolysis type: non-traumatic Qualified Code(s): M62.82 - Rhabdomyolysis (5) CKD (chronic kidney disease) stage 3, GFR 30-59 ml/min: PLAN: RECOMMENDATIONS: 1. Wean pressors as possible per protocol 2. Continue empiric antibiotics pending culture data 3. Aggressive electrolyte repletion 4. Continue duo nebs, hold on steroids 5. Appreciate surgical recommendations 6. Attempt to get out of bed as tolerated with therapy IMPRESSIONS: 1. Septic shock secondary to UTI versus bowel ischemia Patient with gram-negative growing in her blood. Species and sensitivities is not yet available. Rate better note is back yet patient is on appropriate broad-spectrum antibiotics. Given patient's new oxygen requirements, patient is likely developing pulmonary edema. We will continue to hold IV fluids and titrate pressors. Patient does not have an acute abdomen at this time. Surgery is following. We will hold on Lovenox for now given diarrhea with Hemoccult positive stools. 2. Severe hypokalemia from GI losses versus refeeding syndrome Patient does have significant GI losses reported. However, cannot rule out a refeeding syndrome as patient is also low on magnesium and phosphorus initially. We will continue with aggressive electrolyte repletion. Patient does have a central line, so aggressive potassium repletion has been ordered 3. Acute on chronic CKD stage III Likely prerenal etiology associated with problem #1. Baseline appears to be approximately 1.2 of creatinine. Patient does not have any indication for renal replacement therapy at this time, but will have to follow closely. 4. Mild acute rhabdomyolysis Resolved. Patient with mild elevation of CK. Given patient's hypoxia, will hold off on aggressive fluid resuscitation. If CK continues to increase, fluids and diuretics may be needed concomitantly. 5. Chronic iron deficiency anemia/COPD/anxiety/depression/bipolar/chronic pain syndrome/diabetes mellitus type 2 Complicates care, management, recovery and prognosis. Patient does not appear to be in acute exacerbation COPD at this time. No steroids are indicated. We will continue with bronchodilators. Increased oxygen demand likely secondary to an element of pulmonary edema. We will hold on IV fluids and continue with pressor agents. Okay to continue baseline medications except for antihypertensives. TIME: 34 minutes critical care time spent addressing patient's septic shock, severe electrolyte abnormalities, acute kidney injury, possible ischemic gut, review of all data and collaboration with care team (5:30 AM to 6:30 AM) Subjective Subjective Patient did okay overnight. Patient still requiring Levophed to maintain blood pressures. No significant bowel symptoms have been reported. Patient has tolerated clears. Patient was wearing her baseline CPAP overnight and otherwise is only requiring 2 L nasal cannula. Objective Data Objective Data Vital Signs: Vital Signs Temp Pulse Resp BP Pulse Ox 36.9 C 82 20 H 101/65 98 03/09/21 05:00 03/09/21 05:00 03/09/21 05:00 03/09/21 05:00 03/09/21 05:00 Oxygen Flow Rate (L/min) 2 Oxygen Delivery Method Nasal Cannula Weight: 74.9 kg Body Mass Index (BMI) 29.2 Intake & Output: Intake and Output for Last 24 Hours 03/07/21 03/08/21 03/09/21 23:59 23:59 23:59 Intake Total 4522.57 / 4661.37 1759.61 / 1770.91 117.80 / 117.80 Output Total 1775 / 1775 1450 / 1450 Balance 2747.57 / 2886.37 309.61 / 320.91 117.80 / 117.80 Medical Nutrition Assessment Dietitian: Nutrition Therapy Diagnosis Start: 03/07/21 11:37 Freq: Status: Active Protocol: Document 03/08/21 10:20 AG (Rec: 03/08/21 10:20 AG [id number]) Nutrition Malnutrition Evidence of Malnutrition Exists No Intake Problem Inadequate Oral Intake Etiology related to acute illness, GI dysfunction Signs/Symptoms as evidenced by 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 Once tolerance of transitional diet is established, recommend cardiac , 1800 calorie controlled diet . Lab / Micro Data Result Diagrams: 03/09/21 05:30 03/09/21 05:30 Labs: Laboratory Results - last 24 hr 03/08/21 04:10: Diff Path Review Reviewed 03/08/21 06:44: POC Glucose 93 03/08/21 12:12: POC Glucose 114 H 03/08/21 16:45: POC Glucose 101 03/08/21 22:19: POC Glucose 92 03/09/21 05:30: WBC 21.3 H, RBC 3.45 L, Hgb 11.6 L, Hct 33.9 L, MCV 98.3, MCH 33.6 H, MCHC 34.2, RDW Std Deviation 52.9 H, RDW Coeff of Suki 14.6, Plt Count 77 L, MPV 10.4 03/09/21 05:30: Sodium 142, Potassium 3.0 L, Chloride 110 H, Carbon Dioxide 24.0, Anion Gap 8, BUN 28 H, Creatinine 1.55 H, Estim Creat Clear Calc 30.15, Est GFR (MDRD) Af Amer 44 L, Est GFR (MDRD) Non-Af 36 L, BUN/Creatinine Ratio 18.1, Glucose 114 H, Calcium 8.3 L 03/09/21 05:35: POC Glucose 139 H Micro: Microbiology 03/06/21 22:08 Blood Culture (Wb) - Anticubital Left Blood Culture - Preliminary Gram negative javid 03/06/21 21:45 Blood Culture (Wb) - Anticubital Right Blood Culture - Preliminary Gram negative javid 03/07/21 06:24 Stool C. difficile DNA Amplification - Final 03/07/21 02:05 Mucosa - Nose Respiratory Panel (PCR) - Final 03/07/21 02:30 Stool Stool Occult Blood (SHAYLA) - Final Occult Blood Positive 03/06/21 22:35 Urine Catheter - Catheter Legionella Antigen - Final 03/06/21 22:35 Urine Catheter - Catheter Streptococcus pneumoniae Antigen (M - Final Physical Exam Const alert, oriented x3 and no apparent distress General Appearance: cooperative and well developed HEENT normocephalic, head/scalp atraumatic and moist oral mucous membranes Eyes PERRL and EOMs intact bilaterally Neck full ROM and no lymphadenopathy Neck Narrative: Right IJ line is clean, dry and intact Chest inspection of chest normal Resp normal respiratory effort and no use of accessory muscles Effort and Inspection: able to speak in complete sentences Auscultation: diminished lung sounds; Negative for rales, rhonchi or wheezes Percussion: Negative for dullness Cardio regular rhythm, S1 normal heart sound, S2 normal heart sound, no murmurs, no rub and no gallops Rate: tachycardic GI Inspection: central obesity Auscultation: normoactive bowel sounds Palpation: soft and tender; Negative for guarding, rigid or rebound tenderness present no CVA tenderness Extremity no clubbing, cyanosis or edema Skin no rashes or lesions noted Neuro oriented x3, CN's II-XII intact bilaterally, moves all extremities and no focal motor deficits Psych cooperative and affect normal Charges/Coding Procedures Hospitalists Procedures: 12144 Critial Care 1st Hr
--- NOTE | 2021-03-09 07:35 | PN.SURG_ITS ---
Subjective Subjective Abdomen no changes or abdominal pain Objective Data Objective Data Vital Signs: Vital Signs Temp Pulse Resp BP Pulse Ox 98.5 F 82 20 H 101/65 98 03/09/21 05:00 03/09/21 05:00 03/09/21 05:00 03/09/21 05:00 03/09/21 05:00 Oxygen Flow Rate (L/min) 2 Oxygen Delivery Method Nasal Cannula Weight: 165 lb 2.02 oz Body Mass Index (BMI) 29.2 Intake & Output: Intake and Output for Last 24 Hours 03/07/21 03/08/21 03/09/21 23:59 23:59 23:59 Intake Total 4522.57 / 4661.37 1759.61 / 1770.91 117.80 / 117.80 Output Total 1775 / 1775 1450 / 1450 Balance 2747.57 / 2886.37 309.61 / 320.91 117.80 / 117.80 Medical Nutrition Assessment Dietitian: Nutrition Therapy Diagnosis Start: 03/07/21 11:37 Freq: Status: Active Protocol: Document 03/08/21 10:20 AG (Rec: 03/08/21 10:20 [id number]) Nutrition Malnutrition Evidence of Malnutrition Exists No Intake Problem Inadequate Oral Intake Etiology related to acute illness, GI dysfunction Signs/Symptoms as evidenced by 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 Once tolerance of transitional diet is established, recommend cardiac , 1800 calorie controlled diet . Lab / Micro Data Result Diagrams: 03/09/21 05:30 03/09/21 05:30 Labs: Laboratory Results - last 24 hr 03/08/21 04:10: Diff Path Review Reviewed 03/08/21 06:44: POC Glucose 93 03/08/21 12:12: POC Glucose 114 H 03/08/21 16:45: POC Glucose 101 03/08/21 22:19: POC Glucose 92 03/09/21 05:30: WBC 21.3 H, RBC 3.45 L, Hgb 11.6 L, Hct 33.9 L, MCV 98.3, MCH 33.6 H, MCHC 34.2, RDW Std Deviation 52.9 H, RDW Coeff of Suki 14.6, Plt Count 77 L, MPV 10.4 03/09/21 05:30: Sodium 142, Potassium 3.0 L, Chloride 110 H, Carbon Dioxide 24.0, Anion Gap 8, BUN 28 H, Creatinine 1.55 H, Estim Creat Clear Calc 30.15, Est GFR (MDRD) Af Amer 44 L, Est GFR (MDRD) Non-Af 36 L, BUN/Creatinine Ratio 18.1, Glucose 114 H, Calcium 8.3 L 03/09/21 05:35: POC Glucose 139 H Micro: Microbiology 03/06/21 22:08 Blood Culture (Wb) - Anticubital Left Blood Culture - Preliminary Gram negative javid 03/06/21 21:45 Blood Culture (Wb) - Anticubital Right Blood Culture - Preliminary Gram negative javid 03/07/21 06:24 Stool C. difficile DNA Amplification - Final 03/07/21 02:05 Mucosa - Nose Respiratory Panel (PCR) - Final 03/07/21 02:30 Stool Stool Occult Blood (SHAYLA) - Final Occult Blood Positive 03/06/21 22:35 Urine Catheter - Catheter Legionella Antigen - Final 03/06/21 22:35 Urine Catheter - Catheter Streptococcus pneumoniae Antigen (M - Final Physical Exam Const no apparent distress Resp normal respiratory effort Cardio regular rate and regular rhythm GI soft to palpation and non-tender Assessment & Plan Assessment/Plan (1) Ischemic colitis: PLAN: Patient had colitis of unknown origin. Patient's abdomen is soft and nontender and she may advance diet as tolerated. Jason Clemente MD Pager: [facility] [address] [place] [address], [address] [place] [address] Office:
[2021-03-09] MEDS: Ipratropium/Albuterol Sulfate 3 ML AMPUL.NEB INHALATION ×3 (07:40→19:16)
--- NOTE | 2021-03-09 08:33 | PCM.PN.HOSP ---
Subjective Subjective Doing well, no abdominal pain. Electrolytes are still low but being replaced. Objective Data Objective Data Vital Signs: Vital Signs Temp Pulse Resp BP Pulse Ox 97.5 F L 84 19 H 95/60 97 03/09/21 08:12 03/09/21 08:12 03/09/21 08:12 03/09/21 08:12 03/09/21 08:21 Oxygen Flow Rate (L/min) 2 Oxygen Delivery Method Nasal Cannula Weight: 165 lb 2.02 oz Body Mass Index (BMI) 29.2 Intake & Output: Intake and Output for Last 24 Hours 03/08/21 03/09/21 03/10/21 03:59 03:59 03:59 Intake Total 3752.77 / 3771.57 1409.61 / 1420.91 166.26 / 166.26 Output Total 1775 / 1775 1450 / 1450 Balance 1977.77 / 1996.57 -40.39 / -29.09 166.26 / 166.26 Medical Nutrition Assessment Dietitian: Nutrition Therapy Diagnosis Start: 03/07/21 11:37 Freq: Status: Active Protocol: Document 03/08/21 10:20 AG (Rec: 03/08/21 10:20 AG [id number]) Nutrition Malnutrition Evidence of Malnutrition Exists No Intake Problem Inadequate Oral Intake Etiology related to acute illness, GI dysfunction Signs/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 Once tolerance of transitional diet is established, recommend cardiac , 1800 calorie controlled diet . Lab / Micro Data Result Diagrams: 03/09/21 05:30 03/09/21 05:30 Labs: Laboratory Results - last 24 hr 03/08/21 04:10: Diff Path Review Reviewed 03/08/21 06:44: POC Glucose 93 03/08/21 12:12: POC Glucose 114 H 03/08/21 16:45: POC Glucose 101 03/08/21 22:19: POC Glucose 92 03/09/21 05:30: WBC 21.3 H, RBC 3.45 L, Hgb 11.6 L, Hct 33.9 L, MCV 98.3, MCH 33.6 H, MCHC 34.2, RDW Std Deviation 52.9 H, RDW Coeff of Suki 14.6, Plt Count 77 L, MPV 10.4 03/09/21 05:30: Sodium 142, Potassium 3.0 L, Chloride 110 H, Carbon Dioxide 24.0, Anion Gap 8, BUN 28 H, Creatinine 1.55 H, Estim Creat Clear Calc 30.15, Est GFR (MDRD) Af Amer 44 L, Est GFR (MDRD) Non-Af 36 L, BUN/Creatinine Ratio 18.1, Glucose 114 H, Calcium 8.3 L 03/09/21 05:35: POC Glucose 139 H Micro: Microbiology 03/06/21 22:08 Blood Culture (Wb) - Anticubital Left Blood Culture - Final Gram negative javid 03/06/21 21:45 Blood Culture (Wb) - Anticubital Right Blood Culture - Final Escherichia coli 03/07/21 06:24 Stool C. difficile DNA Amplification - Final 03/07/21 02:05 Mucosa - Nose Respiratory Panel (PCR) - Final 03/07/21 02:30 Stool Stool Occult Blood (SHAYLA) - Final Occult Blood Positive 03/06/21 22:35 Urine Catheter - Catheter Legionella Antigen - Final 03/06/21 22:35 Urine Catheter - Catheter Streptococcus pneumoniae Antigen (M - Final Physical Exam Const alert, oriented x3 and no apparent distress General Appearance: cooperative HEENT normocephalic and moist oral mucous membranes Eyes PERRL, EOMs intact bilaterally and conjunctivae normal Neck supple and no JVD Resp normal respiratory effort, no retractions, no use of accessory muscles and clear to auscultation bilaterally Auscultation: Negative for crackles, rales, rhonchi or wheezes Cardio regular rhythm, S1 normal heart sound, S2 normal heart sound and no murmurs Rate: tachycardic GI soft to palpation, non-tender and non-distended; Negative for hepatosplenomegaly Extremity no clubbing, cyanosis or edema Skin no rashes or lesions noted Neuro no focal motor deficits and no sensory deficits noted Psych affect normal Appearance: appropriate Assessment & Plan Assessment/Plan (1) Septic shock: (2) Rhabdomyolysis: QUALIFIERS: Rhabdomyolysis type: non-traumatic Qualified Code(s): M62.82 - Rhabdomyolysis (3) Hypokalemia: (4) UTI (urinary tract infection): QUALIFIERS: Urinary tract infection type: acute cystitis Hematuria presence: without hematuria Qualified Code(s): N30.00 - Acute cystitis without hematuria PLAN: 1. 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 UA not severe appearing however only source for current presentation, urine culture pending, blood culture x2 pending. Will administer IV vasopressor therapy for persistent hypotension. PT, OT, CM consultations for discharge planning. 03/07/2021: Gram-negative rods in blood, continue with antibiotics. Central line to be placed for IV pressors 03/08/2021: Awaiting speciation and sensitivities of her blood cultures, central line in place. White count doubled overnight but she remains afebrile and denies any significant abdominal discomfort, appreciate general surgery's assistance 03/09/2021: Wean pressors as able, since her abdominal pain is resolved surgery recommend advancing diet and monitoring. 2. Severe hypokalemia: Admission K+ 1.9, supplementation initiated in the ED, will obtain magnesium level and supplement if appropriate, will trend BMP through the evening to assure improvement of electrolyte disturbances, closely monitor on telemetry. 03/07/2021: Continue to replace, will recheck in the morning with mag and Phos 03/09/2021: Continue to monitor and replace 3. Chronic Kidney Disease Stage III, unclear subtype w/ Acute Renal Insufficiency: Admission BUN/Cr 20/1.55, baseline renal function 1-1.3 primarily, most recently 01/02/21 1.17, will continue to hydrate given presentation as noted, if any further rise in creatinine consistent with VILMA would hold nephrotoxic regimen, repeat CMP in AM. 03/07/2021: We will continue to monitor renal function, currently stable 4. Acute rhabdomyolysis: Admission TCK 1888, will continue to aggressively hydrate especially given presentation, frequent positional changes, monitor urine output, if necessary may need to increase IV fluids to assure ongoing notable urine output. 03/07/2021: Slight increase in her CPK today, continue with IV fluids 5. Chronic COPD: Will maintain on oxygen with wean as tolerated to room air, will hold home inhalers and in the interim continue ATC duonebs, PRN albuterol, HOB, IS parameters. 6. Chronic anemia/Fe Deficiency anemia: Admission hemoglobin 13.5, prior baseline most recently 14.7 12/23/2020, continue iron supplementation CBC trending. 03/07/2021: Continue to monitor 7. Anxiety and depression/bipolar disorder: We will continue patient home trazodone, sertraline, bupropion, aripiprazole, lamotrigine regimen. Will request lamotrigine level to assure not supratherapeutic. 8. Chronic back pain/cervical radiculitis/fibromyalgia: We will continue patient home gabapentin regimen, maintain on fall precautions, positional changes, therapy is consulted as noted above. 9. Tobacco Abuse: Encouraged cessation, inpatient consultation per RT, NR if desired. 10. History of diabetes mellitus type II: Admission glucose 151, patient with prior history of diabetes, last hemoglobin A1c noted 05/27/2018 7.1%, to be cautious will obtain A1c, continue ADA diet with insulin sliding scale given acute presentation but at this time not on any regimen, likely diet controlled. 03/07/2021: We will continue to monitor and make adjustments as necessary 11. Hypertension: Patient with low BPs upon presentation, will hold patient diuretic regimen as well as indapamide, resume once clinically appropriate, as needed agents in the interim. 12. Hyperlipidemia: Not on regimen, defer to outpatient. 13. LATA: We will initiate BIPAP nightly if amenable. 14. Recent mechanical fall : Patient with recent ED visit 02/19/2021 with mechanical fall while at the grocery store, treated and evaluated for right shoulder contusion, right elbow contusion, right elbow abrasion, right hand contusion and a radial styloid fracture placed in a wrist splint with planned sports medicine outpatient evaluation. We will continue splint, nonweightbearing with this extremity. 03/07/2021: Once better from ICU standpoint, will have her evaluated by PT/OT for possible placement 15. DVT prophylaxis: SCDs, Lovenox. Charges/Coding Visit Charges Inpatient E&M: 57970 Subs Hosp L2
--- NOTE | 2021-03-09 10:30 | CASEMGMT ---
MICHAEL STERLING NOTE: Therapy notes reviewed for 03/08. Pt ambulated 40 ft w/Min assist of 1, weak. MICHAEL STERLING to room to discuss discharge planning. Pt states she would prefer to return home @ d/c but is a little concerned about going home d/t how weak she is. Discussed options of SNF. Pt stated she may be interested in a SNF, if needed, but she wants to wait to see how she improves w/therapy before she makes a decision. D/C plan: TBD by course of treatment and progress w/therapy. Curt RUTHERFORD RN CM
[2021-03-09] MEDS: Cholecalciferol (VIT D3) 25 MCG TABLET (1,000 UNITS) PO (11:25)
[2021-03-09] MEDS: ARIPiprazole 5 MG Tablet PO (11:25)
[2021-03-09] MEDS: Sertraline 100 MG Tablet 150 MG PO (11:25)
[2021-03-09] MEDS: Gabapentin 300 MG Capsule PO (11:25)
[2021-03-09] MEDS: buPROPion (XL) 150 MG TABLET.XL PO (11:25)
[2021-03-09] MEDS: Allopurinol 300 MG Tablet PO (11:25)
[2021-03-09] MEDS: lamoTRIgine 100 MG Tablet PO (11:25)
[2021-03-09] MEDS: Ferrous Sulfate 325 MG Tablet PO (11:26)
--- NOTE | 2021-03-09 15:53 | CASEMGMT ---
Social Work Consult: residential placement Referral source: RN PHILOMENA Attempted to meet with patient in room to discuss discharge planning. Patient lethargic and unable to stay awake to speak with this rn social work. Will continue to follow. Becky ALAMO, MIGUEL
[2021-03-09 21:28] LABS: Lamotrigine (Lamictal) Level 8.1 ug/mL (2.0-20.0)
[2021-03-09] MEDS: Atorvastatin Calcium 10 MG Tablet PO (21:50)
[2021-03-09] MEDS: Gabapentin 600 MG Tablet PO (21:50)
[2021-03-10] VITALS (34 sets, daily range): BP systolic 96–134; BP diastolic 57–85; PULSE 90–123; RESP 12–33; TEMP 36.3–37.3; O2SAT 86–96
[2021-03-10 04:46] LABS: Absolute Lymphocyte Count 0.84 X10^3/uL (0.83-4.51); Absolute Neutrophil Count 8.5 X10^3/uL (2.0-7.7); Basophil# 0.05 X10^3/uL; Basophil% 0.5 % (0-1); Eosinophil# 0.03 X10^3/uL; Eosinophils% 0.3 % (0-5); Hematocrit 34.8 % (37-47); Hemoglobin 11.7 g/dL (12.0-15.0); Lymphocyte # 0.84 X10^3/ul (0.83-4.51); Lymphocyte % 8.1 % (19-41); Mean Corp Hgb Conc 33.6 g/dL (32-36); Mean Corpuscular Hgb 33.1 pg (27.0-32.0); Mean Corpuscular Volume 98.6 fL (81-99); Monocyte# 0.85 X10^3/uL; Monocyte% 8.2 % (0-10); NRBC Flagged by Analyzer 0 % (0-5); Neutrophil # 8.47 X10^3/uL (2.7-7.7); Neutrophil % 81.8 % (47-70); POSITIVE COUNT YES; POSITIVE MORPHOLOGY YES; Platelet Count 71 K/mm3 (150-450); RBC Distribution Width CV 15.1 % (11.6-14.6); RBC Distribution Width SD 54.2 fl (35.1-43.9); Red Blood Count 3.53 M/mm3 (4.2-5.4); White Blood Count 10.4 K/mm3 (4.4-11.0)
[2021-03-10 04:50] LABS: Differential Indicated SCAN CRITERIA MET
[2021-03-10 04:58] LABS: Anion Gap 9 (5-15); BUN 23 mg/dL (7-18); BUN/Creat Ratio 17.4 RATIO (10-20); Calcium,Total 8.5 mg/dL (8.5-10.1); Chloride 112 mmol/L (98-107); Creatinine, Serum 1.32 mg/dL (0.55-1.02); EST Glomerular Filtration Rate 44 mL/min (>60); Est Glom Filt Rate - Afr Amer 53 mL/min (>60); Glucose 100 mg/dL (74-106); Potassium 3.3 mmol/L (3.5-5.1); Sodium Level 145 mmol/L (136-145)
--- NOTE | 2021-03-10 06:50 | PN.CC_ITS ---
Assessment & Plan Assessment/Plan (1) Ischemic colitis: (2) Stage 2 moderate COPD by GOLD classification: (3) LATA (obstructive sleep apnea): (4) Rhabdomyolysis: QUALIFIERS: Rhabdomyolysis type: non-traumatic Qualified Code(s): M62.82 - Rhabdomyolysis (5) CKD (chronic kidney disease) stage 3, GFR 30-59 ml/min: PLAN: RECOMMENDATIONS: 1. Initiate diuretics 2. Transition from Zosyn to ceftriaxone 3. Aggressive electrolyte repletion 4. Continue duo nebs, hold on steroids 5. Appreciate surgical recommendations 6. Okay to leave the intensive care unit IMPRESSIONS: 1. Septic shock secondary to UTI versus bowel ischemia Patient with E. coli growing in her blood. Ceftriaxone appears to be appropriate. Antibiotics changed. Given patient's new oxygen requirements, patient is likely developing pulmonary edema. We will continue to hold IV fluids and titrate pressors. Patient does not have an acute abdomen at this time. Surgery is following. We will hold on Lovenox for now given diarrhea with Hemoccult positive stools. Patient did have a significant drop in platelets. It is not clear if this is consumptive versus possible heparin-induced. 2. Severe hypokalemia from GI losses versus refeeding syndrome Patient does have significant GI losses reported. However, cannot rule out a refeeding syndrome as patient is also low on magnesium and phosphorus initially. We will continue with aggressive electrolyte repletion. Patient does have a central line, so aggressive potassium repletion has been ordered 3. Acute on chronic CKD stage III Likely prerenal etiology associated with problem #1. Baseline appears to be approximately 1.2 of creatinine. Patient does not have any indication for renal replacement therapy at this time, but will have to follow closely. 4. Mild acute rhabdomyolysis Resolved. Patient with mild elevation of CK. Given patient's hypoxia, will hold off on aggressive fluid resuscitation. If CK continues to increase, fluids and diuretics may be needed concomitantly. 5. Chronic iron deficiency anemia/COPD/anxiety/depression/bipolar/chronic pain syndrome/diabetes mellitus type 2 Complicates care, management, recovery and prognosis. Patient does not appear to be in acute exacerbation COPD at this time. No steroids are indicated. We will continue with bronchodilators. Increased oxygen demand likely secondary to an element of pulmonary edema. Okay to continue baseline medications except f or antihypertensives. Subjective Subjective Patient did well overnight. Patient has been off of Levophed since 4:00 yesterd ay afternoon. Patient has not had any bleeding. Patient did tolerate CPAP overnight and had to be increased to 35%. Patient continues to have a relatively flat affect, but no complaints at this time. Objective Data Objective Data Vital Signs: Vital Signs Temp Pulse Resp BP Pulse Ox 36.3 C L 90 28 H 105/68 92 03/10/21 04:00 03/10/21 06:00 03/10/21 06:00 03/10/21 06:00 03/10/21 06:00 Oxygen Flow Rate (L/min) 4 Oxygen Delivery Method CPAP Weight: 75.3 kg Body Mass Index (BMI) 29.2 Intake & Output: Intake and Output for Last 24 Hours 03/08/21 03/09/21 03/10/21 23:59 23:59 23:59 Intake Total 1759.61 / 1770.91 732.63 / 732.63 50 / 50 Output Total 1450 / 1450 650 / 875 525 / 525 Balance 309.61 / 320.91 82.63 / -142.37 -475 / -475 Medical Nutrition Assessment Dietitian: Nutrition Therapy Diagnosis Start: 03/07/21 11:37 Freq: Status: Active Protocol: Document 03/08/21 10:20 AG (Rec: 03/08/21 10:20 AG [id number]) Nutrition Malnutrition Evidence of Malnutrition Exists No Intake Problem Inadequate Oral Intake Etiology related to acute illness, GI dysfunction Signs/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 Once tolerance of transitional diet is established, recommend cardiac , 1800 calorie controlled diet . Lab / Micro Data Result Diagrams: 03/10/21 04:38 03/10/21 04:38 Labs: Laboratory Results - last 24 hr 03/06/21 20:16: Lamotrigine 8.1 03/10/21 04:38: WBC 10.4, RBC 3.53 L, Hgb 11.7 L, Hct 34.8 L, MCV 98.6, MCH 33.1 H, MCHC 33.6, RDW Std Deviation 54.2 H, RDW Coeff of Suki 15.1 H, Plt Count 71 L, MPV 10.0, Immature Gran % (Auto) 1.100 H, Neut % (Auto) 81.8 H, Lymph % (Auto) 8.1 L, [place] % (Auto) 8.2, Eos % (Auto) 0.3, Baso % (Auto) 0.5, Absolute Neuts (auto) 8.5 H, Absolute Lymphs (auto) 0.84, Nucleated RBC % 0 03/10/21 04:38: Sodium 145, Potassium 3.3 L, Chloride 112 H, Carbon Dioxide 24.0, Anion Gap 9, BUN 23 H, Creatinine 1.32 H, Estim Creat Clear Calc 35.40, Est GFR (MDRD) Af Amer 53 L, Est GFR (MDRD) Non-Af 44 L, BUN/Creatinine Ratio 17.4, Glucose 100, Calcium 8.5 Micro: Microbiology 03/06/21 22:08 Blood Culture (Wb) - Anticubital Left Blood Culture - Final Gram negative javid 03/06/21 21:45 Blood Culture (Wb) - Anticubital Right Blood Culture - Final Escherichia coli 03/07/21 06:24 Stool C. difficile DNA Amplification - Final 03/07/21 02:05 Mucosa - Nose Respiratory Panel (PCR) - Final 03/07/21 02:30 Stool Stool Occult Blood (SHAYLA) - Final Occult Blood Positive 03/06/21 22:35 Urine Catheter - Catheter Legionella Antigen - Final 03/06/21 22:35 Urine Catheter - Catheter Streptococcus pneumoniae Antigen (M - Final Physical Exam Const alert, oriented x3 and no apparent distress General Appearance: cooperative and well developed HEENT normocephalic, head/scalp atraumatic and moist oral mucous membranes Eyes PERRL and EOMs intact bilaterally Neck full ROM and no lymphadenopathy Neck Narrative: Right IJ line is clean, dry and intact Chest inspection of chest normal Resp normal respiratory effort and no use of accessory muscles Effort and Inspection: able to speak in complete sentences Auscultation: rales right base and diminished lung sounds; Negative for rhonchi or wheezes Percussion: Negative for dullness Cardio regular rhythm, S1 normal heart sound, S2 normal heart sound, no murmurs, no rub and no gallops Rate: tachycardic GI Inspection: central obesity Auscultation: normoactive bowel sounds Palpation: soft and tender; Negative for guarding, rigid or rebound tenderness present no CVA tenderness Extremity no clubbing, cyanosis or edema Skin no rashes or lesions noted Neuro oriented x3, CN's II-XII intact bilaterally, moves all extremities and no focal motor deficits Psych cooperative and affect normal Charges/Coding Visit Charges Inpatient E&M: 30338 Subs Hosp L3
[2021-03-10] MEDS: Ipratropium/Albuterol Sulfate 3 ML AMPUL.NEB INHALATION ×4 (06:53→19:09)
[2021-03-10] MEDS: Furosemide 20 MG/2 ML VIAL IV (08:30)
[2021-03-10] MEDS: Potassium Chloride Oral Tablet 20 MEQ PO (08:34)
[2021-03-10] MEDS: Ferrous Sulfate 325 MG Tablet PO (08:34)
[2021-03-10] MEDS: Gabapentin 300 MG Capsule PO ×2 (08:35→12:33)
[2021-03-10] MEDS: ARIPiprazole 5 MG Tablet PO (08:35)
[2021-03-10] MEDS: lamoTRIgine 100 MG Tablet PO (08:35)
[2021-03-10] MEDS: Sertraline 100 MG Tablet 150 MG PO (08:36)
[2021-03-10] MEDS: Allopurinol 300 MG Tablet PO (08:36)
[2021-03-10] MEDS: buPROPion (XL) 150 MG TABLET.XL PO (08:36)
[2021-03-10] MEDS: Cholecalciferol (VIT D3) 25 MCG TABLET (1,000 UNITS) PO (08:36)
--- NOTE | 2021-03-10 09:23 | CASEMGMT ---
Social Work Met with patient in room. Patient more alert today. This social secretary introduced self and social secretary role. Patient agreeable to speak with this social secretary. This social secretary broached topic of care home placement for patient. Patient is agreeable to care home placement as patient is concerned about being able to function at home alone. This social secretary provided patient with list of in-network nursing facilities local to patient geographical region. Patient plans to look over care home list and request for social secretary to check back with patient later. This social secretary inquired if patient has every had any history of care home placement, patient denies. This social secretary inquired about family/support that patient would want this social secretary to contact. Patient declines for this social secretary to contact patient son or any other support person. Patient state I will be okay. Support provided. Will continue to follow. Becky ALAMO, MIGUEL
--- NOTE | 2021-03-10 10:22 | PN.HOSP_ITS ---
Subjective Subjective Doing well, no abdominal pain and is tolerating a diet. No issues overnight Objective Data Objective Data Vital Signs: Vital Signs Temp Pulse Resp BP Pulse Ox 97.3 F L 92 27 H 109/69 92 03/10/21 04:00 03/10/21 08:00 03/10/21 07:00 03/10/21 07:00 03/10/21 07:00 Oxygen Flow Rate (L/min) 4 Oxygen Delivery Method CPAP Weight: 166 lb 0.129 oz Body Mass Index (BMI) 29.2 Intake & Output: Intake and Output for Last 24 Hours 03/09/21 03/10/21 03/11/21 03:59 03:59 03:59 Intake Total 1409.61 / 1420.91 687.43 / 687.43 240 / 240 Output Total 1450 / 1450 875 / 875 400 / 400 Balance -40.39 / -29.09 -187.57 / -187.57 -160 / -160 Medical Nutrition Assessment Dietitian: Nutrition Therapy Diagnosis Start: 03/07/21 11:37 Freq: Status: Active Protocol: Document 03/10/21 09:54 RMA (Rec: 03/10/21 09:54 RMA [id number]) Nutrition Malnutrition Evidence of Malnutrition Exists No Intake Problem Inadequate Oral Intake Etiology related to acute illness, GI dysfunction Signs/Symptoms as evidenced by diarrhea x 3 days 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 Lab / Micro Data Result Diagrams: 03/10/21 04:38 03/10/21 04:38 Labs: Laboratory Results - last 24 hr 03/06/21 20:16: Lamotrigine 8.1 03/10/21 04:38: WBC 10.4, RBC 3.53 L, Hgb 11.7 L, Hct 34.8 L, MCV 98.6, MCH 33.1 H, MCHC 33.6, RDW Std Deviation 54.2 H, RDW Coeff of Suki 15.1 H, Plt Count 71 L, MPV 10.0, Immature Gran % (Auto) 1.100 H, Neut % (Auto) 81.8 H, Lymph % (Auto) 8.1 L, [place] % (Auto) 8.2, Eos % (Auto) 0.3, Baso % (Auto) 0.5, Absolute Neuts (auto) 8.5 H, Absolute Lymphs (auto) 0.84, Nucleated RBC % 0 03/10/21 04:38: Sodium 145, Potassium 3.3 L, Chloride 112 H, Carbon Dioxide 24.0, Anion Gap 9, BUN 23 H, Creatinine 1.32 H, Estim Creat Clear Calc 35.40, Est GFR (MDRD) Af Amer 53 L, Est GFR (MDRD) Non-Af 44 L, BUN/Creatinine Ratio 17.4, Glucose 100, Calcium 8.5 Micro: Microbiology 03/06/21 22:08 Blood Culture (Wb) - Anticubital Left Blood Culture - Final Gram negative javid 03/06/21 21:45 Blood Culture (Wb) - Anticubital Right Blood Culture - Final Escherichia coli 03/07/21 06:24 Stool C. difficile DNA Amplification - Final 03/07/21 02:05 Mucosa - Nose Respiratory Panel (PCR) - Final 03/07/21 02:30 Stool Stool Occult Blood (SHAYLA) - Final Occult Blood Positive 03/06/21 22:35 Urine Catheter - Catheter Legionella Antigen - Final 03/06/21 22:35 Urine Catheter - Catheter Streptococcus pneumoniae Antigen (M - Final Physical Exam Const alert, oriented x3 and no apparent distress General Appearance: cooperative HEENT normocephalic and moist oral mucous membranes Eyes PERRL, EOMs intact bilaterally and conjunctivae normal Neck supple and no JVD Resp normal respiratory effort, no retractions, no use of accessory muscles and clear to auscultation bilaterally Auscultation: Negative for crackles, rales, rhonchi or wheezes Cardio S1 normal heart sound, S2 normal heart sound and no murmurs Rate: tachycardic GI soft to palpation, non-tender and non-distended; Negative for hepatosplenomegaly Extremity no clubbing, cyanosis or edema Skin no rashes or lesions noted Neuro no focal motor deficits and no sensory deficits noted Psych affect normal Appearance: appropriate Assessment & Plan Assessment/Plan (1) Septic shock: (2) Rhabdomyolysis: QUALIFIERS: Rhabdomyolysis type: non-traumatic Qualified Code(s): M62.82 - Rhabdomyolysis (3) Hypokalemia: (4) UTI (urinary tract infection): QUALIFIERS: Urinary tract infection type: acute cystitis Hematuria presence: without hematuria Qualified Code(s): N30.00 - Acute cystitis without hematuria PLAN: 1. Acute Septic Shock potentially secondary to acute complicated urinary tract infection versus ischemic bowel hypoperfusion with WBC 32.4, acute renal insufficiency, lactic acid 5.1, BP 98/58 upon ED presentation w/ associated Acute Infectious Encephalopathy: Will admit patient to the ICU, will request audio visual design engineer consultation, maintain on cardiac monitoring, continue IVF bolus per, will trend lactic acid per protocol, will maintain on IV abx regimen w/ IV vancomycin and Zosyn pending cultures and further work-up. UA not severe appearing however only source for current presentation, urine culture pending, blood culture x2 pending. Will administer IV vasopressor therapy for persistent hypotension. PT, OT, CM consultations for discharge planning. 03/07/2021: Gram-negative rods in blood, continue with antibiotics. Central line to be placed for IV pressors 03/08/2021: Awaiting speciation and sensitivities of her blood cultures, central line in place. White count doubled overnight but she remains afebrile and denies any significant abdominal discomfort, appreciate general surgery's assistance 03/09/2021: Wean pressors as able, since her abdominal pain is resolved surgery recommend advancing diet and monitoring. 03/10/2021: Off of pressor support, able to leave the ICU. Continue with her t. Discontinued Lovenox secondary to her platelet count dropping we will continue to monitor also transitioned her from Zosyn to Rocephin secondary to pansensitive E. coli in her blood 2. Severe hypokalemia: Admission K+ 1.9, supplementation initiated in the ED, will obtain magnesium level and supplement if appropriate, will trend BMP through the evening to assure improvement of electrolyte disturbances, closely monitor on telemetry. 03/07/2021: Continue to replace, will recheck in the morning with mag and Phos 03/09/2021: Continue to monitor and replace 03/10/2021: Potassium is 3.3 today, will replace and monitor in the morning 3. Chronic Kidney Disease Stage III, unclear subtype w/ Acute Renal Insufficiency: Admission BUN/Cr 20/1.55, baseline renal function 1-1.3 primarily, most recently 01/02/21 1.17, will continue to hydrate given presentation as noted, if any further rise in creatinine consistent with VILMA would hold nephrotoxic regimen, repeat CMP in AM. 03/07/2021: We will continue to monitor renal function, currently stable 03/10/2021: Creatinine is much improved, back to baseline. She did receive a dose of Lasix today for Rales on the audio visual design engineer exams these have resolved 4. Acute rhabdomyolysis: Admission TCK 1888, will continue to aggressively hydrate especially given presentation, frequent positional changes, monitor urine output, if necessary may need to increase IV fluids to assure ongoing notable urine output. 03/07/2021: Slight increase in her CPK today, continue with IV fluids 5. Chronic COPD: Will maintain on oxygen with wean as tolerated to room air, will hold home inhalers and in the interim continue ATC duonebs, PRN albuterol, HOB, IS parameters. 6. Chronic anemia/Fe Deficiency anemia: Admission hemoglobin 13.5, prior baseline most recently 14.7 12/23/2020, continue iron supplementation CBC trending. 03/07/2021: Continue to monitor 7. Anxiety and depression/bipolar disorder: We will continue patient home trazodone, sertraline, bupropion, aripiprazole, lamotrigine regimen. Will request lamotrigine level to assure not supratherapeutic. 8. Chronic back pain/cervical radiculitis/fibromyalgia: We will continue patient home gabapentin regimen, maintain on fall precautions, positional changes, therapy is consulted as noted above. 9. Tobacco Abuse: Encouraged cessation, inpatient consultation per RT, NR if desired. 10. History of diabetes mellitus type II: Admission glucose 151, patient with prior history of diabetes, last hemoglobin A1c noted 05/27/2018 7.1%, to be cautious will obtain A1c, continue ADA diet with insulin sliding scale given acute presentation but at this time not on any regimen, likely diet controlled. 03/07/2021: We will continue to monitor and make adjustments as necessary 11. Hypertension: Patient with low BPs upon presentation, will hold patient diuretic regimen as well as indapamide, resume once clinically appropriate, as needed agents in the interim. 12. Hyperlipidemia: Not on regimen, defer to outpatient. 13. LATA: We will initiate BIPAP nightly if amenable. 14. Recent mechanical fall : Patient with recent ED visit 02/19/2021 with mechanical fall while at the grocery store, treated and evaluated for right shoulder contusion, right elbow contusion, right elbow abrasion, right hand contusion and a radial styloid fracture placed in a wrist splint with planned sports medicine outpatient evaluation. We will continue splint, nonweightbearing with this extremity. 03/07/2021: Once better from ICU standpoint, will have her evaluated by PT/OT for possible placement 15. DVT prophylaxis: SCDs Charges/Coding Visit Charges Inpatient E&M: 09566 Subs Hosp L2
[2021-03-10 12:40] LABS: Bedside Glucose 101 mg/dL (70-110)
--- NOTE | 2021-03-10 13:32 | CASEMGMT ---
Social Work Attempted to meet with patient again in room. Patient now sitting up in chair. Patient having difficulty staying awake while speaking with this director social. Patient asked for this director social to come back and speak with patient tomorrow about SNF choices. Will continue to follow. Becky ALAMO, MIGUEL
[2021-03-10 15:40] LABS: Allen Test Positive; Base Excess -3 mmol/L (-2 to +2); Bicarbonate 24.7 mmol/L (22-26); Blood Gas Specimen Type ART; FI02 35; O2 Delivery Device CPAP; PEEP 10; PO2 67 mmHG (75-100); SITE L Radial; SO2 87 % (95-99); Total Carbon Dioxide 27 mmol/L; pCO2 63.3 mmHg (35-45)
[2021-03-10 18:16] LABS: Bedside Glucose 112 mg/dL (70-110)
[2021-03-10] MEDS: 0.9% Saline Lock 10 ML Syringe IV (21:58)
[2021-03-11] VITALS (40 sets, daily range): BP systolic 118–160; BP diastolic 64–98; PULSE 98–112; RESP 12–45; TEMP 36.5–37.3; O2SAT 63–98
[2021-03-11] MEDS: Albuterol 2.5 MG/3 ML VIAL.NEB. INHALATION (01:09)
[2021-03-11 02:10] LABS: Bedside Glucose 114 mg/dL (70-110)
[2021-03-11] MEDS: 0.9% Saline Lock 10 ML Syringe IV ×2 (03:52→21:19)
[2021-03-11 04:21] LABS: Absolute Lymphocyte Count 0.72 X10^3/uL (0.83-4.51); Absolute Neutrophil Count 8.5 X10^3/uL (2.0-7.7); Basophil% 0.9 % (0-1); Hematocrit 39.6 % (37-47); Hemoglobin 12.6 g/dL (12.0-15.0); Lymphocyte # 0.72 X10^3/ul (0.83-4.51); Lymphocyte % 6.6 % (19-41); Mean Corp Hgb Conc 31.8 g/dL (32-36); Mean Corpuscular Hgb 32.6 pg (27.0-32.0); Mean Corpuscular Volume 102.3 fL (81-99); Mean Platelet Vol. 10.4 fl (6.2-12.0); Monocyte# 1.05 X10^3/uL; Monocyte% 9.7 % (0-10); NRBC Flagged by Analyzer 0 % (0-5); Neutrophil # 8.49 X10^3/uL (2.7-7.7); Neutrophil % 78.3 % (47-70); POSITIVE COUNT YES; POSITIVE MORPHOLOGY YES; Platelet Count 71 K/mm3 (150-450); RBC Distribution Width CV 15.7 % (11.6-14.6); RBC Distribution Width SD 59.8 fl (35.1-43.9); Red Blood Count 3.87 M/mm3 (4.2-5.4); White Blood Count 10.9 K/mm3 (4.4-11.0)
[2021-03-11 04:22] LABS: Differential Indicated SCAN CRITERIA MET
[2021-03-11 04:29] LABS: Anion Gap 10 (5-15); BUN 21 mg/dL (7-18); BUN/Creat Ratio 18.4 RATIO (10-20); Calcium,Total 8.8 mg/dL (8.5-10.1); Chloride 113 mmol/L (98-107); Creatinine, Serum 1.14 mg/dL (0.55-1.02); EST Glomerular Filtration Rate 52 mL/min (>60); Est Glom Filt Rate - Afr Amer 62 mL/min (>60); Estimated Creatinine Clearance 40.99 ml/min; Glucose 113 mg/dL (74-106); Potassium 3.9 mmol/L (3.5-5.1); Sodium Level 146 mmol/L (136-145)
[2021-03-11] MEDS: CHLORHEXIDINE GLUC 2% CLOTH 1 EACH TOWELETTE TOPICAL (05:48)
[2021-03-11 06:45] LABS: Allen Test Positive; Base Excess -3 mmol/L (-2 to +2); Bicarbonate 24.3 mmol/L (22-26); Blood Gas Specimen Type ART; Comment 24/14; FI02 35; Mode BiLevel; O2 Delivery Device BiPAP; PO2 73 mmHG (75-100); RR 14; SITE L Radial; SO2 92 % (95-99); Total Carbon Dioxide 26 mmol/L; Vt 400; pCO2 54.5 mmHg (35-45); pH 7.26 (7.35-7.45)
[2021-03-11] MEDS: Ipratropium/Albuterol Sulfate 3 ML AMPUL.NEB INHALATION ×4 (06:51→19:42)
--- NOTE | 2021-03-11 07:01 | RAD_ITS ---
EXAM DESCRIPTION: PORTABLE AP CHEST CLINICAL HISTORY: 61 years Female, Hypoxia Hypoxia COMPARISON: Previous chest obtained on 03/07/2021 FINDINGS: An anterior cervical fusion was performed in the lower cervical spine. A right IJ CVP line catheter is noted in place with its tip at the level of cavoatrial junction in the superior vena cava. The rest of the thorax is intact. The heart and mediastinum appear to be within normal limits. The lungs show extensive bilateral alveolar infiltrates in the perihilar regions and upper lungs bilaterally but also with the lower lung mcallister and these alveolar infiltrates have significantly increased when compared with the previous study. They most likely represent pneumonic infiltrates which have significantly increased. In this setting, Covid 19 pneumonia versus early ARDS are diagnostic considerations. RAD/Chest 1 View (Portable) IMPRESSION: Extensive bilateral pneumonic infiltrates are identified which have significantly increased. Covid 19 pneumonia versus early ARDS are additional diagnostic considerations. Electronically Signed: Dewey Aguilar DO at 9:17 EDT Tel , Service support ,
--- NOTE | 2021-03-11 07:15 | PN.CC_ITS ---
Assessment & Plan Assessment/Plan (1) Ischemic colitis: (2) Stage 2 moderate COPD by GOLD classification: (3) LATA (obstructive sleep apnea): (4) Rhabdomyolysis: QUALIFIERS: Rhabdomyolysis type: non-traumatic Qualified Code(s): M62.82 - Rhabdomyolysis (5) CKD (chronic kidney disease) stage 3, GFR 30-59 ml/min: PLAN: RECOMMENDATIONS: 1. Dose with diuretics. Obtain chest x-ray 2. Continue antibiotics 3. Increase target tidal volume on BiPAP 4. Continue duo nebs, hold on steroids 5. Appreciate surgical recommendations 6. Okay to leave the intensive care unit IMPRESSIONS: 1. Septic shock secondary to UTI versus bowel ischemia Patient with E. coli growing in her blood with sensitivity to ceftriaxone. We will continue to hold IV fluids and titrate pressors. Patient does not have an acute abdomen at this time. Surgery is following. We will hold on Lovenox for now given diarrhea with Hemoccult positive stools. Patient did have a signi ficant drop in platelets. It is not clear if this is consumptive versus possible heparin-induced. 2. Severe hypokalemia from GI losses versus refeeding syndrome Resolved. Patient does have significant GI losses reported. However, cannot rule out a refeeding syndrome as patient is also low on magnesium and phosphorus initially. We will continue with aggressive electrolyte repletion. Patient does have a central line, so aggressive potassium repletion has been ordered 3. Acute on chronic CKD stage III Likely prerenal etiology associated with problem #1. Baseline appears to be approximately 1.2 of creatinine. Patient does not have any indication for renal replacement therapy at this time, but will have to follow closely. 4. Mild acute rhabdomyolysis Resolved. Patient with mild elevation of CK. Given patient's hypoxia, will hold off on aggressive fluid resuscitation. If CK continues to increase, fluids and diuretics may be needed concomitantly. 5. Chronic iron deficiency anemia/COPD/anxiety/depression/bipolar/chronic pain syndrome/diabetes mellitus type 2 Complicates care, management, recovery and prognosis. Patient does not appear to be in acute exacerbation COPD at this time. No steroids are indicated. We will continue with bronchodilators. Increased oxygen demand likely secondary to an element of pulmonary edema. Okay to continue baseline medications except for antihypertensives. 6. Acute hypercarbic respiratory failure secondary to possible aspiration pneumonia Patient is currently on antibiotics. However, there was a questionable aspiration event yesterday with CO2 retention noted on BiPAP. Patient has subsequently been placed on AVAPS and is tolerating well at this time. Will increase tidal volume as patient still has some acidosis. Chest x-ray will be ordered. Cannot exclude deterioration requiring intubation. Patient is already on antibiotics secondary to problem #1. Could potentially broaden antibiotics if patient develops fever or other constitutional symptoms. TIME: 35 minutes critical care time spent addressing patient's acute hypercarbic respiratory failure, septic shock, review of testing/labs and collaboration with care team (5:30 AM to 6:30 AM Subjective Subjective Patient with possible aspiration event yesterday. Patient was on BiPAP for most of the evening. Patient's responsiveness had improved, so no repeat ABG was obtained. Patient was able to open her eyes this morning and denied any pain, but was not very interactive. Objective Data Objective Data Vital Signs: Vital Signs Temp Pulse Resp BP Pulse Ox 36.7 C 104 H 30 H 134/77 H 91 03/11/21 04:00 03/11/21 07:00 03/11/21 07:00 03/11/21 07:00 03/11/21 07:00 Oxygen Flow Rate (L/min) 4 Oxygen Delivery Method Bi-pap Weight: 75.6 kg Body Mass Index (BMI) 29.2 Intake & Output: Intake and Output for Last 24 Hours 03/09/21 03/10/21 03/11/21 23:59 23:59 23:59 Intake Total 732.63 / 732.63 680 / 680 Output Total 650 / 875 2525 / 2525 400 / 400 Balance 82.63 / -142.37 -1845 / -1845 -400 / -400 Medical Nutrition Assessment Dietitian: Nutrition Therapy Diagnosis Start: 03/07/21 11:37 Freq: Status: Active Protocol: Document 03/10/21 09:54 RMA (Rec: 03/10/21 09:54 RMA [id number]) Nutrition Malnutrition Evidence of Malnutrition Exists No Intake Problem Inadequate Oral Intake Etiology related to acute illness, GI dysfunction Signs/Symptoms as evidenced by diarrhea x 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 Lab / Micro Data Result Diagrams: 03/11/21 03:55 03/11/21 03:55 Labs: Laboratory Results - last 24 hr 03/10/21 12:23: POC Glucose 101 03/10/21 18:12: POC Glucose 112 H 03/11/21 02:07: POC Glucose 114 H 03/11/21 03:55: WBC 10.9, RBC 3.87 L, Hgb 12.6, Hct 39.6, MCV 102.3 H, MCH 32.6 H, MCHC 31.8 L D, RDW Std Deviation 59.8 H, RDW Coeff of Suki 15.7 H, Plt Count 71 L, MPV 10.4, Immature Gran % (Auto) 4.500 H, Neut % (Auto) 78.3 H, Lymph % (Auto) 6.6 L, [place] % (Auto) 9.7, Eos % (Auto) 0.0, Baso % (Auto) 0.9, Absolute Neuts (auto) 8.5 H, Absolute Lymphs (auto) 0.72 L, Nucleated RBC % 0 03/11/21 03:55: Sodium 146 H, Potassium 3.9, Chloride 113 H, Carbon Dioxide 23.0, Anion Gap 10, BUN 21 H, Creatinine 1.14 H, Estim Creat Clear Calc 40.99, E st GFR (MDRD) Af Amer 62, Est GFR (MDRD) Non-Af 52 L, BUN/Creatinine Ratio 18.4, Glucose 113 H, Calcium 8.8 Micro: Microbiology 03/06/21 22:08 Blood Culture (Wb) - Anticubital Left Blood Culture - Final Gram negative javid 03/06/21 21:45 Blood Culture (Wb) - Anticubital Right Blood Culture - Final Escherichia coli 03/07/21 06:24 Stool C. difficile DNA Amplification - Final 03/07/21 02:05 Mucosa - Nose Respiratory Panel (PCR) - Final 03/07/21 02:30 Stool Stool Occult Blood (SHAYLA) - Final Occult Blood Positive 03/06/21 22:35 Urine Catheter - Catheter Legionella Antigen - Final 03/06/21 22:35 Urine Catheter - Catheter Streptococcus pneumoniae Antigen (M - Final ABG Data ABG results: ABG 03/10/21 03/11/21 15:34 06:37 Specimen Type ART ART Sample Site L Radial L Radial pH 7.20 L 7.26 L Bicarbonate Actual 24.7 24.3 Total CO2 27 26 Base Excess -3 L -3 L O2 Saturation 87 L 92 L O2 % 35 35 ABG pCO2 63.3 H 54.5 H ABG pO2 67 L 73 L [place] Test Positive Positive Respiration Rate 14 O2 Delivery Device CPAP BiPAP Vent Mode BiLevel Tidal Volume 400 POC PEEP 10 Crit Call To/Read Back Yes Blood Gas Notified Whom cm Clinical Comments Physical Exam Const General Appearance: cooperative, well developed and lethargic HEENT normocephalic, head/scalp atraumatic and moist oral mucous membranes Eyes PERRL and EOMs intact bilaterally Neck full ROM and no lymphadenopathy Neck Narrative: Right IJ line is clean, dry and intact Chest inspection of chest normal Resp no use of accessory muscles Resp Narrative: On BiPAP therapy Effort and Inspection: tachypneic Auscultation: rales right base, wheezes and diminished lung sounds; Negative for rhonchi Percussion: Negative for dullness Cardio regular rhythm, S1 normal heart sound, S2 normal heart sound, no murmurs, no rub and no gallops Rate: tachycardic GI Inspection: central obesity Auscultation: normoactive bowel sounds Palpation: soft and tender; Negative for guarding, rigid or rebound tenderness present no CVA tenderness Extremity no clubbing, cyanosis or edema Skin no rashes or lesions noted Neuro oriented x3, CN's II-XII intact bilaterally, moves all extremities and no focal motor deficits Psych cooperative and affect normal Charges/Coding Procedures Hospitalists Procedures: [id number] Critial Care 1st Hr
--- NOTE | 2021-03-11 09:46 | PN.HOSP_ITS ---
Subjective Subjective Maintaining BiPAP, oxygen saturations are 92% with an FiO2 of 55. She had an aspiration event yesterday Objective Data Objective Data Vital Signs: Vital Signs Temp Pulse Resp BP Pulse Ox 98.0 F 105 H 30 H 134/77 H 92 03/11/21 04:00 03/11/21 08:49 03/11/21 08:49 03/11/21 07:00 03/11/21 08:49 Oxygen Flow Rate (L/min) 4 Oxygen Delivery Method Bi-pap Weight: 166 lb 10.711 oz Body Mass Index (BMI) 29.2 Intake & Output: Intake and Output for Last 24 Hours 03/10/21 03/11/21 03/12/21 03:59 03:59 03:59 Intake Total 687.43 / 687.43 630 / 630 Output Total 875 / 875 2300 / 2300 400 / 400 Balance -187.57 / -187.57 -1670 / -1670 -400 / -400 Medical Nutrition Assessment Dietitian: Nutrition Therapy Diagnosis Start: 03/07/21 11:37 Freq: Status: Active Protocol: Document 03/10/21 09:54 RMA (Rec: 03/10/21 09:54 RMA [id number]) Nutrition Malnutrition Evidence of Malnutrition Exists No Intake Problem Inadequate Oral Intake Etiology related to acute illness, GI dysfunction Signs/Symptoms as evidenced by 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 Lab / Micro Data Result Diagrams: 03/11/21 03:55 03/11/21 03:55 Labs: Laboratory Results - last 24 hr 03/10/21 12:23: POC Glucose 101 03/10/21 18:12: POC Glucose 112 H 03/11/21 02:07: POC Glucose 114 H 03/11/21 03:55: WBC 10.9, RBC 3.87 L, Hgb 12.6, Hct 39.6, MCV 102.3 H, MCH 32.6 H, MCHC 31.8 L D, RDW Std Deviation 59.8 H, RDW Coeff of Suki 15.7 H, Plt Count 71 L, MPV 10.4, Immature Gran % (Auto) 4.500 H, Neut % (Auto) 78.3 H, Lymph % (Auto) 6.6 L, Graves % (Auto) 9.7, Eos % (Auto) 0.0, Baso % (Auto) 0.9, Absolute Neuts (auto) 8.5 H, Absolute Lymphs (auto) 0.72 L, Nucleated RBC % 0 03/11/21 03:55: Sodium 146 H, Potassium 3.9, Chloride 113 H, Carbon Dioxide 23.0, Anion Gap 10, BUN 21 H, Creatinine 1.14 H, Estim Creat Clear Calc 40.99, Est GFR (MDRD) Af Amer 62, Est GFR (MDRD) Non-Af 52 L, BUN/Creatinine Ratio 18.4, Glucose 113 H, Calcium 8.8 Micro: Microbiology 03/06/21 22:08 Blood Culture (Wb) - Anticubital Left Blood Culture - Final Gram negative javid 03/06/21 21:45 Blood Culture (Wb) - Anticubital Right Blood Culture - Final Escherichia coli 03/07/21 06:24 Stool C. difficile DNA Amplification - Final 03/07/21 02:05 Mucosa - Nose Respiratory Panel (PCR) - Final 03/07/21 02:30 Stool Stool Occult Blood (SHAYLA) - Final Occult Blood Positive 03/06/21 22:35 Urine Catheter - Catheter Legionella Antigen - Final 03/06/21 22:35 Urine Catheter - Catheter Streptococcus pneumoniae Antigen (M - Final ABG Data ABG results: ABG 03/10/21 03/11/21 15:34 06:37 Specimen Type ART ART Sample Site L Radial L Radial pH 7.20 L 7.26 L Bicarbonate Actual 24.7 24.3 Total CO2 27 26 Base Excess -3 L -3 L O2 Saturation 87 L 92 L O2 % 35 35 ABG pCO2 63.3 H 54.5 H ABG pO2 67 L 73 L [place] Test Positive Positive Respiration Rate 14 O2 Delivery Device CPAP BiPAP Vent Mode BiLevel Tidal Volume 400 POC PEEP 10 Crit Call To/Read Back Yes Blood Gas Notified Whom cm Clinical Comments Radiography Diagnostic Testing: Radiology Impression Chest X-Ray 03/11/21 07:01 IMPRESSION: Extensive bilateral pneumonic infiltrates are identified which have significantly increased. Covid 19 pneumonia versus early ARDS are additional diagnostic considerations. Electronically Signed: Dewey Aguilar DO at 9:17 EDT Tel , Service support , Physical Exam Const alert, oriented x3 and no apparent distress General Appearance: cooperative HEENT normocephalic and moist oral mucous membranes Eyes PERRL, EOMs intact bilaterally and conjunctivae normal Neck supple and no JVD Resp normal respiratory effort, no retractions and no use of accessory muscles Auscultation: wheezes and diminished lung sounds; Negative for crackles, rales or rhonchi Cardio S1 normal heart sound, S2 normal heart sound and no murmurs Rate: tachycardic GI soft to palpation, non-tender and non-distended; Negative for hepatosplenomegaly Extremity no clubbing, cyanosis or edema Skin no rashes or lesions noted Neuro no focal motor deficits and no sensory deficits noted Psych affect normal Appearance: appropriate Assessment & Plan Assessment/Plan (1) Septic shock: (2) Rhabdomyolysis: QUALIFIERS: Rhabdomyolysis type: non-traumatic Qualified Code(s): M62.82 - Rhabdomyolysis (3) Hypokalemia: (4) UTI (urinary tract infection): QUALIFIERS: Urinary tract infection type: acute cystitis Shamar turia presence: without hematuria Qualified Code(s): N30.00 - Acute cystitis without hematuria (5) Aspiration into airway: PLAN: 1. Acute Septic Shock potentially secondary to acute complicated urinary tract infection versus ischemic bowel hypoperfusion with WBC 32.4, acute renal insufficiency, lactic acid 5.1, BP 98/58 upon ED presentation w/ associated Acute Infectious Encephalopathy: Will admit patient to the ICU, will request tool and die engineer consultation, maintain on cardiac monitoring, continue IVF bolus per, will trend lactic acid per protocol, will maintain on IV abx regimen w/ IV vancomycin and Zosyn pending cultures and further work-up. UA not severe appearing however only source for current presentation, urine culture pending, blood culture x2 pending. Will administer IV vasopressor therapy for persistent hypotension. PT, OT, CM consultations for discharge planning. 03/07/2021: Gram-negative rods in blood, continue with antibiotics. Central line to be placed for IV pressors 03/08/2021: Awaiting speciation and sensitivities of her blood cultures, central line in place. White count doubled overnight but she remains afebrile and denies any significant abdominal discomfort, appreciate general surgery's ass istance 03/09/2021: Wean pressors as able, since her abdominal pain is resolved surgery recommend advancing diet and monitoring. 03/10/2021: Off of pressor support, able to leave the ICU. Continue with her diet. Discontinued Lovenox secondary to her platelet count dropping we will continue to monitor also transitioned her from Zosyn to Rocephin secondary to pansensitive E. coli in her blood 03/11/2021: Continue with Rocephin though given her aspiration event may need to adjust antibiotics if she spikes a fever or develops a white count 2. Aspiration pneumonitis versus pneumonia -She had an aspiration event yesterday home has been on BiPAP since. He has bilateral pulmonary infiltrates -We will continue to monitor, she does have a history of COPD so may necessitate steroids in addition to her current therapy -Appreciate pulmonology assistance 3. Chronic Kidney Disease Stage III, unclear subtype w/ Acute Renal Insufficiency: Admission BUN/Cr /1.55, baseline renal function 1-1.3 primari ly, most recently 01/02/21 1.17, will continue to hydrate given presentation as noted, if any further rise in creatinine consistent with VILMA would hold nephrotoxic regimen, repeat CMP in AM. 03/07/2021: We will continue to monitor renal function, currently stable 03/10/2021: Creatinine is much improved, back to baseline. She did receive a dose of Lasix today for Rales on the tool and die engineer exams these have resolved 4. Acute rhabdomyolysis: Admission TCK 1888, will continue to aggressively hydrate especially given presentation, frequent positional changes, monitor urine output, if necessary may need to increase IV fluids to assure ongoing notable urine output. 03/07/2021: Slight increase in her CPK today, continue with IV fluids 5. Chronic COPD: Will maintain on oxygen with wean as tolerated to room air, will hold home inhalers and in the interim continue ATC duonebs, PRN albuterol, HOB, IS parameters. 6. Chronic anemia/Fe Deficiency anemia: Admission hemoglobin 13.5, prior baseline most recently 14.7 12/23/2020, continue iron supplementation CBC trending. 03/07/2021: Continue to monitor 7. Anxiety and depression/bipolar disorder: We will continue patient home trazodone, sertraline, bupropion, aripiprazole, lamotrigine regimen. Will request lamotrigine level to assure not supratherapeutic. 8. Chronic back pain/cervical radiculitis/fibromyalgia: We will continue patient home gabapentin regimen, maintain on fall precautions, positional changes, therapy is consulted as noted above. 9. Tobacco Abuse: Encouraged cessation, inpatient consultation per RT, NR if desired. 10. History of diabetes mellitus type II: Admission glucose 151, patient with prior history of diabetes, last hemoglobin A1c noted 05/27/2018 7.1%, to be cautious will obtain A1c, continue ADA diet with insulin sliding scale given acute presentation but at this time not on any regimen, likely diet controlled. 03/07/2021: We will continue to monitor and make adjustments as necessary 11. Hypertension: Patient with low BPs upon presentation, will hold patient diuretic regimen as well as indapamide, resume once clinically appropriate, as needed agents in the interim. 12. Hyperlipidemia: Not on regimen, defer to outpatient. 13. LATA: We will initiate BIPAP nightly if amenable. 14. Recent mechanical fall : Patient with recent ED visit 02/19/2021 with mechanical fall while at the grocery store, treated and evaluated for right shoulder contusion, right elbow contusion, right elbow abrasion, right hand contusion and a radial styloid fracture placed in a wrist splint with planned sports medicine outpatient evaluation. We will continue splint, nonweightbearing with this extremity. 03/07/2021: Once better from ICU standpoint, will have her evaluated by PT/OT for possible placement 15. DVT prophylaxis: SCDs Charges/Coding Visit Charges Inpatient E&M: 08833 Subs Hosp L2
--- NOTE | 2021-03-11 09:56 | CASEMGMT ---
Social Work Participated in ICU rounds. Patient now on Bi-pap. Patient medically declining. Patient unable to discuss further discharge planning and continues to decline family being contacted for discharge planning purposes. Will continue to follow. Becky ALAMO, MIGUEL
[2021-03-11] MEDS: Furosemide 40 MG/4 ML Vial IV (11:49)
[2021-03-11 12:35] LABS: Allen Test Positive; Base Excess -4 mmol/L (-2 to +2); Bicarbonate 21.3 mmol/L (22-26); Blood Gas Specimen Type ART; Comment 24/14; FI02 55; Mode avaps; O2 Delivery Device BiPAP; PO2 75 mmHG (75-100); RR 14; SITE L Radial; SO2 94 % (95-99); Total Carbon Dioxide 22 mmol/L; Vt 450; pCO2 37.1 mmHg (35-45); pH 7.37 (7.35-7.45)
--- NOTE | 2021-03-11 18:40 | NURSING ---
Bipap removed and placed on 6L n/c. Oral care done
[2021-03-12] VITALS (33 sets, daily range): BP systolic 129–156; BP diastolic 73–138; PULSE 92–110; RESP 12–45; TEMP 36.4–37.1; O2SAT 89–100
[2021-03-12] MEDS: 0.9% Saline Lock 10 ML Syringe IV ×3 (03:35→10:06)
[2021-03-12 03:54] LABS: Absolute Neutrophil Count 10.7 X10^3/uL (2.0-7.7); Basophil# 0.07 X10^3/uL; Basophil% 0.5 % (0-1); Hematocrit 37.3 % (37-47); Hemoglobin 12.4 g/dL (12.0-15.0); Lymphocyte % 6.8 % (19-41); Mean Corp Hgb Conc 33.2 g/dL (32-36); Mean Corpuscular Hgb 33.2 pg (27.0-32.0); Mean Corpuscular Volume 99.7 fL (81-99); Mean Platelet Vol. 10.6 fl (6.2-12.0); Monocyte# 0.95 X10^3/uL; Monocyte% 7.2 % (0-10); NRBC Flagged by Analyzer 0 % (0-5); Neutrophil % 81.4 % (47-70); POSITIVE COUNT YES; Platelet Count 97 K/mm3 (150-450); RBC Distribution Width CV 15.3 % (11.6-14.6); RBC Distribution Width SD 56.2 fl (35.1-43.9); Red Blood Count 3.74 M/mm3 (4.2-5.4); White Blood Count 13.2 K/mm3 (4.4-11.0)
[2021-03-12 04:19] LABS: Anion Gap 14 (5-15); BUN 27 mg/dL (7-18); BUN/Creat Ratio 21.3 RATIO (10-20); Calcium,Total 9.1 mg/dL (8.5-10.1); Chloride 116 mmol/L (98-107); Creatinine, Serum 1.27 mg/dL (0.55-1.02); EST Glomerular Filtration Rate 45 mL/min (>60); Est Glom Filt Rate - Afr Amer 55 mL/min (>60); Estimated Creatinine Clearance 36.79 ml/min; Glucose 134 mg/dL (74-106); Potassium 3.1 mmol/L (3.5-5.1); Sodium Level 153 mmol/L (136-145)
[2021-03-12] MEDS: CHLORHEXIDINE GLUC 2% CLOTH 1 EACH TOWELETTE TOPICAL (04:52)
--- NOTE | 2021-03-12 06:35 | PN.CC_ITS ---
Assessment & Plan Assessment/Plan (1) Ischemic colitis: (2) Stage 2 moderate COPD by GOLD classification: (3) LATA (obstructive sleep apnea): (4) Rhabdomyolysis: QUALIFIERS: Rhabdomyolysis type: non-traumatic Qualified Code(s): M62.82 - Rhabdomyolysis (5) CKD (chronic kidney disease) stage 3, GFR 30-59 ml/min: PLAN: RECOMMENDATIONS: 1. Hold on diuretics. Potentially initiate D5W in the next 24 to 48 hours 2. Continue antibiotics 3. BiPAP breaks as tolerated during the day 4. Continue duo nebs, hold on steroids 5. Decrease Neurontin dosing 6. Electrolyte repletion as necessary IMPRESSIONS: 1. Septic shock secondary to UTI versus bowel ischemia Patient with E. coli growing in her blood with sensitivity to ceftriaxone. We will continue to hold IV fluids. Patient does not have an acute abdomen at this time. Surgery is following. We will hold on Lovenox for now given diarrhea with Hemoccult positive stools. Patient did have a significant drop in platelets. It is not clear if this is consumptive versus possible heparin- induced. 2. Severe hypokalemia from GI losses versus refeeding syndrome Patient does have significant GI losses reported initially. However, cannot rule out a refeeding syndrome as patient is also low on magnesium and phosphorus initially. Recurrent hypokalemia likely secondary to diuretics. Will attempt to hold diuretics as patient is developing hypernatremia and hyperchloremia. Patient does have a central line, so aggressive potassium repletion has been ordered. 3. Acute on chronic CKD stage III Resolved. Likely prerenal etiology associated with problem #1. Baseline appears to be approximately 1.2 of creatinine. Patient does not have any indication for renal replacement therapy at this time, but will have to follow closely. 4. Mild acute rhabdomyolysis Resolved. Patient with mild elevation of CK. Given patient's hypoxia, will hold off on aggressive fluid resuscitation. If CK continues to increase, fluids and diuretics may be needed concomitantly. 5. Chronic iron deficiency anemia/COPD/anxiety/depression/bipolar/chronic pain syndrome/diabetes mellitus type 2 Complicates care, management, recovery and prognosis. Patient does not appear to be in acute exacerbation COPD at this time. May initiate steroids if patient unable to take BiPAP breaks. We will continue with bronchodilators. Increased oxygen demand likely secondary to an element of pulmonary edema. Okay to continue baseline medications except for antihypertensives. 6. Acute hypercarbic respiratory failure secondary to possible aspiration pneumonia Patient is currently on antibiotics. However, there was a questionable aspiration event with CO2 retention noted on CPAP. Patient has subsequently been placed on AVAPS and is tolerating well at this time. Chest x- ray with significant bilateral infiltrates. Unclear if infiltrates are secondary to embolic pneumonia or ARDS. Patient does not have a typical pattern for aspiration. ARDS has been readily described following gram-negative bacteremia. Covid test was negative. Cannot exclude deterioration requiring intubation. Patient is already on antibiotics secondary to problem #1. Could potentially broaden antibiotics if patient develops fever or other constitutional symptoms. TIME: 32 minutes critical care time spent addressing patient's acute hypercarbic respiratory failure, septic shock, review of testing/labs and collaboration with care team (5:45 AM to 6:45 AM) Subjective Subjective Patient did okay overnight. Patient was able to come off of BiPAP for approximately 3 hours and tolerating nasal cannula. Patient's mentation is much improved today compared to previous. Patient is not reporting any pain and does not feel dyspnea while on BiPAP. Objective Data Objective Data Vital Signs: Vital Signs Temp Pulse Resp BP Pulse Ox 36.8 C 98 36 H 135/96 H 98 03/12/21 04:00 03/12/21 06:00 03/12/21 06:00 03/12/21 06:00 03/12/21 06:00 Oxygen Flow Rate (L/min) 6 Oxygen Delivery Method Bi-pap Weight: 70.3 kg Body Mass Index (BMI) 29.2 Intake & Output: Intake and Output for Last 24 Hours 03/10/21 03/11/21 03/12/21 23:59 23:59 23:59 Intake Total 680 / 680 270 / 270 Output Total 2525 / 2525 3275 / 3275 300 / 300 Balance -1845 / -1845 -3005 / -3005 -300 / -300 Medical Nutrition Assessment Dietitian: Nutrition Therapy Diagnosis Start: 03/07/21 11:3 7 Freq: Status: Active Protocol: Document 03/11/21 10:02 FANNIE (Rec: 03/11/21 10:03 FANNIE [id number]) Nutrition Malnutrition Evidence of Malnutrition Exists No Intake Problem Inadequate Oral Intake Etiology related to acute illness, GI dysfunction Signs/Symptoms as evidenced by not having food/drink since yesterday d/t issues w/ aspiration after lunch, and <50% of 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 Lab / Micro Data Result Diagrams: 03/12/21 03:35 03/12/21 03:35 Labs: Laboratory Results - last 24 hr 03/12/21 03:35: WBC 13.2 H, RBC 3.74 L, Hgb 12.4, Hct 37.3, MCV 99.7 H, MCH 33.2 H, MCHC 33.2, RDW Std Deviation 56.2 H, RDW Coeff of Suki 15.3 H, Plt Count 97 L, MPV 10.6, Immature Gran % (Auto) 4.100 H, Neut % (Auto) 81.4 H, Lymph % (Auto) 6.8 L, [place] % (Auto) 7.2, Eos % (Auto) 0.0, Baso % (Auto) 0.5, Absolute Neuts (auto) 10.7 H, Absolute Lymphs (auto) 0.90, Nucleated RBC % 0 03/12/21 03:35: Sodium 153 H, Potassium 3.1 L, Chloride 116 H, Carbon Dioxide 23.0, Anion Gap 14, BUN 27 H, Creatinine 1.27 H, Estim Creat Clear Calc 36.79, Est GFR (MDRD) Af Amer 55 L, Est GFR (MDRD) Non-Af 45 L, BUN/Creatinine Ratio 21.3 H, Glucose 134 H, Calcium 9.1 Micro: Microbiology 03/11/21 17:02 Mucosa - Nasopharyngeal SARS-CoV-2 Antigen (Rapid) - Final 03/06/21 22:08 Blood Culture (Wb) - Anticubital Left Blood Culture - Final Gram negative javid 03/06/21 21:45 Blood Culture (Wb) - Anticubital Right Blood Culture - Final Escherichia coli 03/07/21 06:24 Stool C. difficile DNA Amplification - Final 03/07/21 02:05 Mucosa - Nose Respiratory Panel (PCR) - Final 03/07/21 02:30 Stool Stool Occult Blood (SHAYLA) - Final Occult Blood Positive 03/06/21 22:35 Urine Catheter - Catheter Legionella Antigen - Final 03/06/21 22:35 Urine Catheter - Catheter Streptococcus pneumoniae Antigen (M - Final ABG Data ABG results: ABG 03/11/21 03/11/21 06:37 12:28 Specimen Type ART ART Sample Site L Radial L Radial pH 7.26 L 7.37 Bicarbonate Actual 24.3 21.3 L Total CO2 26 22 Base Excess -3 L -4 L O2 Saturation 92 L 94 L O2 % 35 55 ABG pCO2 54.5 H 37.1 ABG pO2 73 L 75 [place] Test Positive Positive Respiration Rate 14 14 O2 Delivery Device BiPAP BiPAP Vent Mode BiLevel avaps Tidal Volume 400 450 Clinical Comments Radiography Diagnostic Testing: Radiology Impression Chest X-Ray 03/11/21 07:01 IMPRESSION: Extensive bilateral pneumonic infiltrates are identified which have significantly increased. Covid 19 pneumonia versus early ARDS are additional diagnostic considerations. Electronically Signed: Dewey Aguilar DO at 9:17 EDT Tel , Service support , Physical Exam Const alert, oriented x3 and no apparent distress Constitutional Narrative: Improved mentation. Good BiPAP synchrony. General Appearance: cooperative, well developed and on BiPAP Nutritional Appearance: overweight HEENT normocephalic, head/scalp atraumatic and moist oral mucous membranes Eyes PERRL and EOMs intact bilaterally Neck full ROM and no lymphadenopathy Neck Narrative: Right IJ line is clean, dry and intact Chest inspection of chest normal Resp no use of accessory muscles Resp Narrative: On BiPAP therapy Effort and Inspection: Negative for retractions, uses accessory muscles or paradoxical thoraco-abdominal movements Auscultation: rhonchi, wheezes and diminished lung sounds; Negative for rales Percussion: Negative for dullness Cardio regular rhythm, S1 normal heart sound, S2 normal heart sound, no murmurs, no rub and no gallops Rate: tachycardic GI Inspection: central obesity Auscultation: normoactive bowel sounds Palpation: soft and tender; Negative for guarding, rigid or rebound tenderness present no CVA tenderness Extremity no clubbing, cyanosis or edema Skin no rashes or lesions noted Neuro oriented x3, CN's II-XII intact bilaterally, moves all extremities and no focal motor deficits Psych cooperative and affect normal Charges/Coding Procedures Hospitalists Procedures: 96005 Critial Care 1st Hr
[2021-03-12] MEDS: Ipratropium/Albuterol Sulfate 3 ML AMPUL.NEB INHALATION ×3 (07:05→20:15)
--- NOTE | 2021-03-12 10:09 | PN.HOSP_ITS ---
Subjective Subjective No issues overnight, she is managing on just nasal cannula. Denies any significant shortness of breath and denies any abdominal pain. Objective Data Objective Data Vital Signs: Vital Signs Temp Pulse Resp BP Pulse Ox 98.3 F 98 34 H 147/81 H 94 03/12/21 04:00 03/12/21 07:05 03/12/21 07:05 03/12/21 07:00 03/12/21 07:05 Oxygen Flow Rate (L/min) 6 Oxygen Delivery Method Nasal Cannula Weight: 154 lb 15.759 oz Body Mass Index (BMI) 29.2 Intake & Output: Intake and Output for Last 24 Hours 03/11/21 03/12/21 03/13/21 03:59 03:59 03:59 Intake Total 630 / 630 270 / 270 120 / 120 Output Total 2300 / 2300 3275 / 3575 300 / 300 Balance -1670 / -1670 -3005 / -3305 -180 / -180 Medical Nutrition Assessment Dietitian: Nutrition Therapy Diagnosis Start: 03/07/21 11:37 Freq: Status: Active Protocol: Document 03/12/21 10:01 FANNIE (Rec: 03/12/21 10:01 [facility] [id number]) Nutrition Malnutrition Evidence of Malnutrition Exists No Intake Problem Inadequate Oral Intake Etiology related to acute illness, lethargy Signs/Symptoms as evidenced by d/t concerns w / dysphagia/aspiration, and < 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 Lab / Micro Data Result Diagrams: 03/12/21 03:35 03/12/21 03:35 Labs: Laboratory Results - last 24 hr 03/12/21 03:35: WBC 13.2 H, RBC 3.74 L, Hgb 12.4, Hct 37.3, MCV 99.7 H, MCH 33.2 H, MCHC 33.2, RDW Std Deviation 56.2 H, RDW Coeff of Suki 15.3 H, Plt Count 97 L, MPV 10.6, Immature Gran % (Auto) 4.100 H, Neut % (Auto) 81.4 H, Lymph % (Auto) 6.8 L, [place] % (Auto) 7.2, Eos % (Auto) 0.0, Baso % (Auto) 0.5, Absolute Neuts (auto) 10.7 H, Absolute Lymphs (auto) 0.90, Nucleated RBC % 0 03/12/21 03:35: Sodium 153 H, Potassium 3.1 L, Chloride 116 H, Carbon Dioxide 23.0, Anion Gap 14, BUN 27 H, Creatinine 1.27 H, Estim Creat Clear Calc 36.79, Est GFR (MDRD) Af Amer 55 L, Est GFR (MDRD) Non-Af 45 L, BUN/Creatinine Ratio 21.3 H, Glucose 134 H, Calcium 9.1 Micro: Microbiology 03/11/21 17:02 Mucosa - Nasopharyngeal SARS-CoV-2 Antigen (Rapid) - Final 03/06/21 22:08 Blood Culture (Wb) - Anticubital Left Blood Culture - Final Gram negative javid 03/06/21 21:45 Blood Culture (Wb) - Anticubital Right Blood Culture - Final Escherichia coli 03/07/21 06:24 Stool C. difficile DNA Amplification - Final 03/07/21 02:05 Mucosa - Nose Respiratory Panel (PCR) - Final 03/07/21 02:30 Stool Stool Occult Blood (SHAYLA) - Final Occult Blood Positive 03/06/21 22:35 Urine Catheter - Catheter Legionella Antigen - Final 03/06/21 22:35 Urine Catheter - Catheter Streptococcus pneumoniae Antigen (M - Final ABG Data ABG results: ABG 03/11/21 12:28 Specimen Type ART Sample Site L Radial pH 7.37 Bicarbonate Actual 21.3 L Total CO2 22 Base Excess -4 L O2 Saturation 94 L O2 % 55 ABG pCO2 37.1 ABG pO2 75 [place] Test Positive Respiration Rate 14 O2 Delivery Device BiPAP Vent Mode avaps Tidal Volume 450 Clinical Comments Physical Exam Const alert, oriented x3 and no apparent distress General Appearance: cooperative HEENT normocephalic and moist oral mucous membranes Eyes PERRL, EOMs intact bilaterally and conjunctivae normal Neck supple and no JVD Resp normal respiratory effort, no retractions and no use of accessory muscles Auscultation: wheezes and diminished lung sounds; Negative for crackles, rales or rhonchi Cardio regular rhythm, S1 normal heart sound, S2 normal heart sound and no murmurs Rate: tachycardic GI soft to palpation, non-tender and non-distended; Negative for hepatosplenomegaly Extremity no clubbing, cyanosis or edema Skin no rashes or lesions noted Neuro no focal motor deficits and no sensory deficits noted Psych affect normal Appearance: appropriate Assessment & Plan Assessment/Plan (1) Septic shock: (2) Rhabdomyolysis: QUALIFIERS: Rhabdomyolysis type: non-traumatic Qualified Code(s): M62.82 - Rhabdomyolysis (3) Hypokalemia: (4) UTI (urinary tract infection): QUALIFIERS: Urinary tract infection type: acute cystitis Hematuria presence: without hematuria Qualified Code(s): N30.00 - Acute cystitis without hematuria (5) Aspiration into airway: PLAN: 1. Acute Septic Shock potentially secondary to acute complicated urinary tract infection versus ischemic bowel hypoperfusion with WBC 32.4, acute renal insufficiency, lactic acid 5.1, BP 98/58 upon ED presentation w/ associated Acute Infectious Encephalopathy: Will admit patient to the ICU, will request drug enforcement administration agent consultation, maintain on cardiac monitoring, continue IVF bolus per, will trend lactic acid per protocol, will maintain on IV abx regimen w/ IV vancomycin and Zosyn pending cultures and further work-up. UA not severe appearing however only source for current presentation, urine culture pending, blood culture x2 pending. Will administer IV vasopressor therapy for persistent hypotension. PT, OT, CM consultations for discharge planning. 03/07/2021: Gram-negative rods in blood, continue with antibiotics. Central line to be placed for IV pressors 03/08/2021: Awaiting speciation and sensitivities of her blood cultures, central line in place. White count doubled overnight but she remains afebrile and denies any significant abdominal discomfort, appreciate general surgery's assistance 03/09/2021: Wean pressors as able, since her abdominal pain is resolved surgery recommend advancing diet and monitoring. 03/10/2021: Off of pressor support, able to leave the ICU. Continue with her diet. Discontinued Lovenox secondary to her platelet count dropping we will continue to monitor also transitioned her from Zosyn to Rocephin secondary to pansensitive E. coli in her blood 03/11/2021: Continue with Rocephin though given her aspiration event may need to adjust antibiotics if she spikes a fever or develops a white count 03/12/2021: No fevers but her white count did jump of 13.2. We will continue to monitor while on Rocephin 2. Aspiration pneumonitis versus pneumonia with hypercapnic respiratory failure -She had an aspiration event yesterday home has been on BiPAP since. He has bilateral pulmonary infiltrates -We will continue to monitor, she does have a history of COPD so may necessitate steroids in addition to her current therapy -Appreciate pulmonology assistance -Currently maintaining oxygen saturations on nasal cannula, will continue to monitor throughout the day in the ICU 3. Chronic Kidney Disease Stage III, unclear subtype w/ Acute Renal Insufficiency: Admission BUN/Cr 20/1.55, baseline renal function 1-1.3 primarily, most recently 01/02/21 1.17, will continue to hydrate given presentation as noted, if any further rise in creatinine consistent with VILMA would hold nephrotoxic regimen, repeat CMP in AM. 03/07/2021: We will continue to monitor renal function, currently stable 03/10/2021: Creatinine is much improved, back to baseline. She did receive a dose of Lasix today for Rales on the drug enforcement administration agent exams these have resolved 4. Acute rhabdomyolysis: Resolved 5. Chronic COPD: Will maintain on oxygen with wean as tolerated to room air, will hold home inhalers and in the interim continue ATC duonebs, PRN albuterol, HOB, IS parameters. 6. Chronic anemia/Fe Deficiency anemia: Admission hemoglobin 13.5, prior baseline most recently 14.7 12/23/2020, continue iron supplementation CBC trending. 03/07/2021: Continue to monitor 7. Anxiety and depression/bipolar disorder: We will continue patient home trazodone, sertraline, bupropion, aripiprazole, lamotrigine regimen. Will request lamotrigine level to assure not supratherapeutic. 8. Chronic back pain/cervical radiculitis/fibromyalgia: We will continue patient home gabapentin regimen, maintain on fall precautions, positional changes, therapy is consulted as noted above. 9. Tobacco Abuse: Encouraged cessation, inpatient consultation per RT, NR if desired. 10. History of diabetes mellitus type II: Admission glucose 151, patient with prior history of diabetes, last hemoglobin A1c noted 05/27/2018 7.1%, to be cautious will obtain A1c, continue ADA diet with insulin sliding scale given acute presentation but at this time not on any regimen, likely diet controlled. 03/07/2021: We will continue to monitor and make adjustments as necessary 11. Hypertension: Patient with low BPs upon presentation, will hold patient diuretic regimen as well as indapamide, resume once clinically appropriate, as needed agents in the interim. 12. Hyperlipidemia: Not on regimen, defer to outpatient. 13. LATA: We will initiate BIPAP nightly if amenable. 14. Recent mechanical fall : Patient with recent ED visit 02/19/2021 with mechanical fall while at the grocery store, treated and evaluated for right shoulder contusion, right elbow contusion, right elbow abrasion, right hand contusion and a radial styloid fracture placed in a wrist splint with planned sports medicine outpatient evaluation. We will continue splint, nonweightbearing with this extremity. 03/07/2021: Once better from ICU standpoint, will have her evaluated by PT/OT for possible placement 15. DVT prophylaxis: SCDs, platelets are improving after discontinuation of Lovenox Charges/Coding Visit Charges Inpatient E&M: 94738 Subs Hosp L2
--- NOTE | 2021-03-12 13:31 | CASEMGMT ---
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 Patient is currently on 6 L of oxygen and continues to have difficulty breathing. Thus, due to patient continued medical issues this freelance copywriter did not meet with her to discuss SNF options at discharge. SW will remain available if needs arise. Plan: TO be determined. Brenda BRENNAN
--- NOTE | 2021-03-12 20:15 | CPS ---
decreased Min PS to 10 and FIO2 to 40%
[2021-03-13] VITALS (38 sets, daily range): BP systolic 127–154; BP diastolic 79–108; PULSE 99–114; RESP 12–56; TEMP 36.1–37.2; O2SAT 86–97
[2021-03-13 04:51] LABS: Absolute Lymphocyte Count 0.67 X10^3/uL (0.83-4.51); Basophil# 0.06 X10^3/uL; Basophil% 0.4 % (0-1); Hemoglobin 13.2 g/dL (12.0-15.0); Lymphocyte # 0.67 X10^3/ul (0.83-4.51); Mean Corpuscular Hgb 32.9 pg (27.0-32.0); Mean Corpuscular Volume 99.8 fL (81-99); Monocyte# 0.29 X10^3/uL; Monocyte% 2.2 % (0-10); NRBC Flagged by Analyzer 0 % (0-5); Neutrophil # 12.02 X10^3/uL (2.7-7.7); Neutrophil % 89.6 % (47-70); Platelet Count 128 K/mm3 (150-450); RBC Distribution Width CV 15.7 % (11.6-14.6); RBC Distribution Width SD 57.7 fl (35.1-43.9); Red Blood Count 4.01 M/mm3 (4.2-5.4); White Blood Count 13.4 K/mm3 (4.4-11.0)
[2021-03-13 05:13] LABS: Anion Gap 15 (5-15); BUN 34 mg/dL (7-18); BUN/Creat Ratio 25.4 RATIO (10-20); Calcium,Total 9.6 mg/dL (8.5-10.1); Chloride 125 mmol/L (98-107); Creatinine, Serum 1.34 mg/dL (0.55-1.02); EST Glomerular Filtration Rate 43 mL/min (>60); Est Glom Filt Rate - Afr Amer 52 mL/min (>60); Estimated Creatinine Clearance 34.87 ml/min; Glucose 141 mg/dL (74-106); Potassium 3.3 mmol/L (3.5-5.1); Sodium Level 161 mmol/L (136-145)
[2021-03-13] MEDS: 0.9% Saline Lock 10 ML Syringe IV ×3 (06:29→20:10)
[2021-03-13] MEDS: Ipratropium/Albuterol Sulfate 3 ML AMPUL.NEB INHALATION ×4 (06:44→22:55)
--- NOTE | 2021-03-13 07:13 | PCM.PN.INT ---
Assessment & Plan Assessment/Plan (1) Ischemic colitis: (2) Stage 2 moderate COPD by GOLD classification: (3) LATA (obstructive sleep apnea): (4) Rhabdomyolysis: QUALIFIERS: Rhabdomyolysis type: non-traumatic Qualified Code(s): M62.82 - Rhabdomyolysis (5) CKD (chronic kidney disease) stage 3, GFR 30-59 ml/min: PLAN: RECOMMENDATIONS: 1. Initiate D5W with potassium 2. Continue antibiotics to complete a total of 10 days 3. BiPAP breaks as tolerated during the day 4. Continue duo nebs. Continue steroids 5. Decrease Neurontin dosing 6. Electrolyte repletion as necessary IMPRESSIONS: 1. Septic shock secondary to UTI versus bowel ischemia Patient with E. coli growing in her blood with sensitivity to ceftriaxone. Patient does not have an acute abdomen at this time. Surgery is following. We will hold on Lovenox for now given diarrhea with Hemoccult positive stools. Patient did have a significant drop in platelets. It is not clear if this is consumptive versus possible heparin-induced. These have been stable for several days. 2. Severe hypokalemia from GI losses versus refeeding syndrome Patient does have significant GI losses reported initially. However, cannot rule out a refeeding syndrome as patient is also low on magnesium and phosphorus initially. Recurrent hypokalemia likely secondary to diuretics. Will attempt to hold diuretics as patient is developing hypernatremia and hyperchloremia. Patient does have a central line, so aggressive potassium repletion has been ordered. Unfortunately, given level of hypernatremia and hyperchloremia, D5W will have to be initiated. We'll have to monitor respiratory status closely. 3. Acute on chronic CKD stage III Resolved. Likely prerenal etiology associated with problem #1. Baseline appears to be approximately 1.2 of creatinine. Patient does not have any indication for renal replacement therapy at this time, but will have to follow closely. 4. Mild acute rhabdomyolysis Resolved. Patient with mild elevation of CK. Given patient's hypoxia, will hold off on aggressive fluid resuscitation. If CK continues to increase, fluids and diuretics may be needed concomitantly. 5. Chronic iron deficiency anemia/COPD/anxiety/depression/bipolar/chronic pain syndrome/diabetes mellitus type 2 Complicates care, management, recovery and prognosis. Patient does not appear to be in acute exacerbation COPD at this time. May initiate steroids if patient unable to take BiPAP breaks. We will continue with bronchodilators. Increased oxygen demand likely secondary to an element of pulmonary edema. Okay to continue baseline medications except for antihypertensives. 6. Acute hypercarbic respiratory failure secondary to possible aspiration pneumonia Patient is currently on antibiotics. However, there was a questionable aspiration event with CO2 retention noted on CPAP. Patient has subsequently been placed on AVAPS and is tolerating well at this time. Chest x-ray with significant bilateral infiltrates. Unclear if infiltrates are secondary to embolic pneumonia or ARDS. Patient does not have a typical pattern for aspiration. Will extend patient's antibiotic course given concerns for recent aspiration to a total of 10 days. 7. Hypernatremia/hyperchloremia Progressive symptoms. Urine output is relatively inaccurate, but patient does not appear to be in DI. Will initiate D5W. Patient has had decreased p.o. intake. Subjective Subjective Patient did okay overnight. Patient was on BiPAP with sleep, but FiO2 was able to be weaned. Patient was able to be initiated on a p.o. diet with restrictions per speech therapy. Patient continues to deny any complaints outside of dry mouth and wanting the mask off. Objective Data Objective Data Vital Signs: Vital Signs Temp Pulse Resp BP Pulse Ox 36.2 C L 100 29 H 151/83 H 95 03/13/21 04:00 03/13/21 06:00 03/13/21 06:00 03/13/21 06:00 03/13/21 06:00 Oxygen Flow Rate (L/min) 6 Oxygen Delivery Method Bi-pap Weight: 67.6 kg Body Mass Index (BMI) 29.2 Intake & Output: Intake and Output for Last 24 Hours 03/11/21 03/12/21 03/13/21 23:59 23:59 23:59 Intake Total 270 / 270 829.75 / 829.75 Output Total 3275 / 3275 900 / 900 250 / 250 Balance -3005 / -3005 -70.25 / -70.25 -250 / -250 Medical Nutrition Assessment Dietitian: Nutrition Therapy Diagnosis Start: 03/07/21 11:37 Freq: Status: Active Protocol: Document 03/12/21 10:01 FANNIE (Rec: 03/12/21 10:01 FANNIE [id number]) Nutrition Malnutrition Evidence of Malnutrition Exists No Intake Problem Inadequate Oral Intake Etiology related to acute illness, lethargy Signs/Symptoms as evidenced by d/t concerns w / dysphagia/aspiration, and < 50% 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 Lab / Micro Data Result Diagrams: 03/13/21 04:45 03/13/21 04:45 Labs: Laboratory Results - last 24 hr 03/13/21 04:45: WBC 13.4 H, RBC 4.01 L, Hgb 13.2, Hct 40.0, MCV 99.8 H, MCH 32.9 H, MCHC 33.0, RDW Std Deviation 57.7 H, RDW Coeff of [place]uki 15.7 H, Plt Count 128 L, MPV 10.0, Immature Gran % (Auto) 2.800 H, Neut % (Auto) 89.6 H, Lymph % (Auto) 5.0 L, [place] % (Auto) 2.2, Eos % (Auto) 0.0, Baso % (Auto) 0.4, Absolute Neuts (auto) 12.0 H, Absolute Lymphs (auto) 0.67 L, Nucleated RBC % 0 03/13/21 04:45: Sodium 161 H*, Potassium 3.3 L, Chloride 125 H, Carbon Dioxide 21.0, Anion Gap 15, BUN 34 H, Creatinine 1.34 H, Estim Creat Clear Calc 34.87, Est GFR (MDRD) Af Amer 52 L, Est GFR (MDRD) Non-Af 43 L, BUN/Creatinine Ratio 25.4 H, Glucose 141 H, Calcium 9.6 Micro: Microbiology 03/11/21 17:02 Mucosa - Nasopharyngeal SARS-CoV-2 Antigen (Rapid) - Final 03/06/21 22:08 Blood Culture (Wb) - Anticubital Left Blood Culture - Final Gram negative jaivd 03/06/21 21:45 Blood Culture (Wb) - Anticubital Right Blood Culture - Final Escherichia coli 03/07/21 06:24 Stool C. difficile DNA Amplification - Final 03/07/21 02:05 Mucosa - Nose Respiratory Panel (PCR) - Final 03/07/21 02:30 Stool Stool Occult Blood (SHAYLA) - Final Occult Blood Positive 03/06/21 22:35 Urine Catheter - Catheter Legionella Antigen - Final 03/06/21 22:35 Urine Catheter - Catheter Streptococcus pneumoniae Antigen (M - Final Physical Exam Const alert, oriented x3 and no apparent distress Constitutional Narrative: Improved mentation. Good BiPAP synchrony. General Appearance: cooperative, well developed and on BiPAP Nutritional Appearance: overweight HEENT normocephalic, head/scalp atraumatic and moist oral mucous membranes Eyes PERRL and EOMs intact bilaterally Neck full ROM and no lymphadenopathy Neck Narrative: Right IJ line is clean, dry and intact Chest inspection of chest normal Resp no use of accessory muscles Resp Narrative: On BiPAP therapy Effort and Inspection: Negative for retractions, uses accessory muscles or paradoxical thoraco-abdominal movements Auscultation: rhonchi, wheezes and diminished lung sounds; Negative for rales Percussion: Negative for dullness Cardio regular rhythm, S1 normal heart sound, S2 normal heart sound, no murmurs, no rub and no gallops Rate: tachycardic GI Inspection: central obesity Auscultation: normoactive bowel sounds Palpation: soft and tender; Negative for guarding, rigid or rebound tenderness present no CVA tenderness Extremity no clubbing, cyanosis or edema Skin no rashes or lesions noted Neuro oriented x3, CN's II-XII intact bilaterally, moves all extremities and no focal motor deficits Psych cooperative and affect normal Charges/Coding Visit Charges Inpatient E&M: 15704 [facility] Hosp L3
--- NOTE | 2021-03-13 09:36 | PN.HOSP_ITS ---
Subjective Subjective No issues overnight. No abdominal pain. Remains a little bit confused today. Objective Data Objective Data Vital Signs: Vital Signs Temp Pulse Resp BP Pulse Ox 97 F L 102 H 23 H 142/84 H 91 03/13/21 08:00 03/13/21 09:00 03/13/21 09:00 03/13/21 09:00 03/13/21 09:00 Oxygen Flow Rate (L/min) 6 Oxygen Delivery Method Nasal Cannula Weight: 149 lb 0.52 oz Body Mass Index (BMI) 29.2 Intake & Output: Intake and Output for Last 24 Hours 03/12/21 03/13/21 03/14/21 03:59 03:59 03:59 Intake Total 270 / 270 829.75 / 829.75 Output Total 3275 / 3575 900 / 900 250 / 250 Balance -3005 / -3305 -70.25 / -70.25 -250 / -250 Medical Nutrition Assessment Dietitian: Nutrition Therapy Diagnosis Start: 03/07/21 11:37 Freq: Status: Active Protocol: Document 03/12/21 10:01 [facility] (Rec: 03/12/21 10:01 [facility] [id number]) Nutrition Malnutrition Evidence of Malnutrition Exists No Intake Problem Inadequate Oral Intake Etiology related to acute illness, lethargy Signs/Symptoms as evidenced by d/t concerns w / dysphagia/aspiration, and < 50% of 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 Lab / Micro Data Result Diagrams: 03/13/21 04:45 03/13/21 04:45 Labs: Laboratory Results - last 24 hr 03/13/21 04:45: WBC 13.4 H, RBC 4.01 L, Hgb 13.2, Hct 40.0, MCV 99.8 H, MCH 32.9 H, MCHC 33.0, RDW Std Deviation 57.7 H, RDW Coeff of Suki 15.7 H, Plt Count 128 L , MPV 10.0, Immature Gran % (Auto) 2.800 H, Neut % (Auto) 89.6 H, Lymph % (Auto) 5.0 L, [place] % (Auto) 2.2, Eos % (Auto) 0.0, Baso % (Auto) 0.4, Absolute Neuts (auto) 12.0 H, Absolute Lymphs (auto) 0.67 L, Nucleated RBC % 0 03/13/21 04:45: Sodium 161 H*, Potassium 3.3 L, Chloride 125 H, Carbon Dioxide 21.0, Anion Gap 15, BUN 34 H, Creatinine 1.34 H, Estim Creat Clear Calc 34.87, Est GFR (MDRD) Af Amer 52 L, Est GFR (MDRD) Non-Af 43 L, BUN/Creatinine Ratio 25.4 H, Glucose 141 H, Calcium 9.6 Micro: Microbiology 03/11/21 17:02 Mucosa - Nasopharyngeal SARS-CoV-2 Antigen (Rapid) - Final 03/06/21 22:08 Blood Culture (Wb) - Anticubital Left Blood Culture - Final Gram negative javid 03/06/21 21:45 Blood Culture (Wb) - Anticubital Right Blood Culture - Final Escherichia coli 03/07/21 06:24 Stool C. difficile DNA Amplification - Final 03/07/21 02:05 Mucosa - Nose Respiratory Panel (PCR) - Final 03/07/21 02:30 Stool Stool Occult Blood (SHAYLA) - Final Occult Blood Positive 03/06/21 22:35 Urine Catheter - Catheter Legionella Antigen - Final 03/06/21 22:35 Urine Catheter - Catheter Streptococcus pneumoniae Antigen (M - Final Physical Exam Const alert and no apparent distress General Appearance: cooperative HEENT normocephalic and moist oral mucous membranes Eyes PERRL, EOMs intact bilaterally and conjunctivae normal Neck supple and no JVD Resp normal respiratory effort, no retractions and no use of accessory muscles Auscultation: wheezes and diminished lung sounds; Negative for crackles, rales or rhonchi Cardio regular rhythm, S1 normal heart sound, S2 normal heart sound and no murmurs Rate: tachycardic GI soft to palpation, non-tender and non-distended; Negative for hepatosplenomegaly Extremity no clubbing, cyanosis or edema Skin no rashes or lesions noted Neuro no focal motor deficits and no sensory deficits noted Psych affect normal Appearance: appropriate Assessment & Plan Assessment/Plan (1) Septic shock: (2) Rhabdomyolysis: QUALIFIERS: Rhabdomyolysis type: non-traumatic Qualified Code(s): M62.82 - Rhabdomyolysis (3) Hypokalemia: (4) UTI (urinary tract infection): QUALIFIERS: Hematuria presence: without hematuria Urinary tract infection type: acute cystitis Qualified Code(s): N30.00 - Acute cystitis without hematuria (5) Aspiration into airway: PLAN: 1. Acute Septic Shock potentially secondary to acute complicated urinary tract infection versus ischemic bowel hypoperfusion with WBC 32.4, acute renal insufficiency, lactic acid 5.1, BP 98/58 upon ED presentation w/ associated Acute Infectious Encephalopathy: Will admit patient to the ICU, will request pole frame construction worker consultation, maintain on cardiac monitoring, continue IVF bolus per, will trend lactic acid per protocol, will maintain on IV abx regimen w/ IV vancomycin and Zosyn pending cultures and further work-up. UA not severe appearing however only source for current presentation, urine culture pending, blood culture x2 pending. Will administer IV vasopressor therapy for persistent hypotension. PT, OT, CM consultations for discharge planning. 03/07/2021: Gram-negative rods in blood, continue with antibiotics. Central line to be placed for IV pressors 03/08/2021: Awaiting speciation and sensitivities of her blood cultures, central line in place. White count doubled overnight but she remains afebrile and d enies any significant abdominal discomfort, appreciate general surgery's assistance 03/09/2021: Wean pressors as able, since her abdominal pain is resolved surgery recommend advancing diet and monitoring. 03/10/2021: Off of pressor support, able to leave the ICU. Continue with her diet. Discontinued Lovenox secondary to her platelet count dropping we will continue to monitor also transitioned her from Zosyn to Rocephin secondary to pansensitive E. coli in her blood 03/11/2021: Continue with Rocephin though given her aspiration event may need to adjust antibiotics if she spikes a fever or develops a white count 03/12/2021: No fevers but her white count did jump of 13.2. We will continue to monitor while on Rocephin 2. Aspiration pneumonitis versus pneumonia with hypercapnic respiratory failure -She had an aspiration event yesterday home has been on BiPAP since. He has bilateral pulmonary infiltrates -We will continue to monitor, she does have a history of COPD so may necessitate steroids in addition to her current therapy -Appreciate pulmonology assistance -Currently maintaining oxygen saturations on nasal cannula, will continue to monitor throughout the day in the ICU 3. Chronic Kidney Disease Stage III, unclear subtype w/ Acute Renal Insufficiency/Hypernatremia: Admission BUN/Cr 20/1.55, baseline renal function 1-1.3 primarily, most recently 01/02/21 1.17, will continue to hydrate given presentation as noted, if any further rise in creatinine consistent with VILMA would hold nephrotoxic regimen, repeat CMP in AM. 03/07/2021: We will continue to monitor renal function, currently stable 03/10/2021: Creatinine is much improved, back to baseline. She did receive a dose of Lasix today for Rales on the pole frame construction worker exams these have resolved 03/13/2021: Worsening hyponatremia, she is up to [address] her on D5W and monitor 4. Acute rhabdomyolysis: Resolved 5. Chronic COPD: Will maintain on oxygen with wean as tolerated to room air, will hold home inhalers and in the interim continue ATC duonebs, PRN albuterol, HOB, IS parameters. 6. Chronic anemia/Fe Deficiency anemia: Admission hemoglobin 13.5, prior baseline most recently 14.7 12/23/2020, continue iron supplementation CBC trending. 03/07/2021: Continue to monitor 7. Anxiety and depression/bipolar disorder: We will continue patient home trazodone, sertraline, bupropion, aripiprazole, lamotrigine regimen. Will request lamotrigine level to assure not supratherapeutic. 03/13/2021: The Metformin level is normal 8. Chronic back pain/cervical radiculitis/fibromyalgia: We will continue patient home gabapentin regimen, maintain on fall precautions, positional changes, therapy is consulted as noted above. 9. Tobacco Abuse: Encouraged cessation, inpatient consultation per RT, NR if desired. 10. History of diabetes mellitus type II: Admission glucose 151, patient with prior history of diabetes, last hemoglobin A1c noted 05/27/2018 7.1%, to be cautious will obtain A1c, continue ADA diet with insulin sliding scale given acute presentation but at this time not on any regimen, likely diet controlled. 03/07/2021: We will continue to monitor and make adjustments as necessary 11. Hypertension: Patient with low BPs upon presentation, will hold patient diuretic regimen as well as indapamide, resume once clinically appropriate, as needed agents in the interim. 12. Hyperlipidemia: Not on regimen, defer to outpatient. 13. LATA: We will initiate BIPAP nightly if amenable. 14. Recent mechanical fall : Patient with recent ED visit 02/19/2021 with mechanical fall while at the grocery store, treated and evaluated for right shoulder contusion, right elbow contusion, right elbow abrasion, right hand contusion and a radial styloid fracture placed in a wrist splint with planned sports medicine outpatient evaluation. We will continue splint, nonweightbearing with this extremity. 03/07/2021: Once better from ICU standpoint, will have her evaluated by PT/OT for possible placement 15. DVT prophylaxis: SCDs, platelets are improving after discontinuation of Lovenox Charges/Coding Visit Charges Inpatient E&M: 55792 Subs Hosp L2
[2021-03-13] MEDS: CHLORHEXIDINE GLUC 2% CLOTH 1 EACH TOWELETTE TOPICAL (11:18)
[2021-03-13 14:42] LABS: Sodium Level 163 mmol/L (136-145)
[2021-03-13] MEDS: Haloperidol Lactate 5 MG/ML Vial 3 MG IV (20:10)
[2021-03-14] VITALS (34 sets, daily range): BP systolic 109–155; BP diastolic 71–102; PULSE 87–126; RESP 12–38; TEMP 36.2–36.8; O2SAT 86–97
[2021-03-14] MEDS: CHLORHEXIDINE GLUC 2% CLOTH 1 EACH TOWELETTE TOPICAL (04:11)
[2021-03-14] MEDS: 0.9% Saline Lock 10 ML Syringe IV ×3 (04:13→17:45)
[2021-03-14 04:18] LABS: Absolute Lymphocyte Count 0.59 X10^3/uL (0.83-4.51); Basophil# 0.01 X10^3/uL; Basophil% 0.1 % (0-1); Hematocrit 39.2 % (37-47); Hemoglobin 12.8 g/dL (12.0-15.0); Lymphocyte # 0.59 X10^3/ul (0.83-4.51); Lymphocyte % 4.5 % (19-41); Mean Corp Hgb Conc 32.7 g/dL (32-36); Mean Corpuscular Hgb 32.5 pg (27.0-32.0); Mean Corpuscular Volume 99.5 fL (81-99); Monocyte% 2.3 % (0-10); NRBC Flagged by Analyzer 0 % (0-5); Neutrophil # 11.95 X10^3/uL (2.7-7.7); Neutrophil % 91.2 % (47-70); POSITIVE DIFFERENTIAL YES; Platelet Count 103 K/mm3 (150-450); RBC Distribution Width CV 16.1 % (11.6-14.6); RBC Distribution Width SD 58.8 fl (35.1-43.9); Red Blood Count 3.94 M/mm3 (4.2-5.4); White Blood Count 13.1 K/mm3 (4.4-11.0)
[2021-03-14 04:24] LABS: Differential Indicated SCAN CRITERIA MET
[2021-03-14 04:36] LABS: Anion Gap 6 (5-15); BUN 38 mg/dL (7-18); BUN/Creat Ratio 29.9 RATIO (10-20); Calcium,Total 9.2 mg/dL (8.5-10.1); Chloride 129 mmol/L (98-107); Creatinine, Serum 1.27 mg/dL (0.55-1.02); EST Glomerular Filtration Rate 45 mL/min (>60); Est Glom Filt Rate - Afr Amer 55 mL/min (>60); Estimated Creatinine Clearance 36.79 ml/min; Glucose 241 mg/dL (74-106); Potassium 3.4 mmol/L (3.5-5.1); Sodium Level 163 mmol/L (136-145)
--- NOTE | 2021-03-14 05:30 | PN.CC_ITS ---
Assessment & Plan Assessment/Plan (1) Aspiration into airway: (2) Acute respiratory failure with hypoxia and hypercapnia: PLAN: RECOMMENDATIONS: 1. Continue AVAPS and wean FiO2 to maintain saturations at or above 90%. 2. Check BNP, troponin and D-dimer. 3. If D-dimer is elevated, obtain CTA chest. 4. Increase D5W infusion rate. 5. Decrease methylprednisone to 40 mg once daily. 6. Continue scheduled bronchodilator therapy. 7. Continue antimicrobials. 8. Recommend goals of care discussion with the patient's family. IMPRESSIONS: 1. Septic shock secondary to UTI versus bowel ischemia The patient was apparently improved from a clinical perspective prior to a witnessed aspiration event several days ago. Since that time, she has decompensated clinically. The patient remains on antimicrobials, which will be continued. Repeat cultures are pending. The patient remains hemodynamically stable at this time. 2. Acute hypoxemic and hypercarbic respiratory failure Initially felt to be the consequence of a witnessed aspiration event. The patient is currently requiring noninvasive positive pressure ventilatory support and continues to have a very tenuous respiratory status. Given her overall lack of clinical improvement over the last 48 hours, will check troponin, BNP and D- dimer. If D-dimer is elevated, will obtain CTA chest. Alternatively, if no PE is identified but the patient continues to demonstrate groundglass opacities as per previous imaging, may need to consider coronavirus PCR test. The patient does have a known history of obstructive lung disease and chronic tobacco depend ency, for which she will be continued on scheduled bronchodilator therapy. Wean FiO2 to maintain oxygen saturations at or above 90%. 3. Encephalopathy Likely metabolic/infectious in etiology. Plan to continue current supportive measures. Will obtain arterial blood gas, if needed, if there is any change in her overall mental state. 4. Hypernatremia/hyperchloremia/hypokalemia Will increase D5W infusion rate today. Additional electrolyte repletion as ordered. Continue to monitor BMP closely. 5. Chronic iron deficiency anemia/anxiety/depression/bipolar disorder/chronic pain syndrome/diabetes mellitus Complicates care, management, recovery and prognosis. Start low-dose sliding scale coverage today. Recommend goals of care discussion with the patient's family. TIME: 37 minutes of critical care time, independent of procedures, was spent addressing the patient's septic shock, acute combined respiratory failure, encephalopathy, hypernatremia, hyponatremia, hypokalemia, review of all data and collaboration with the care team. ([id number]) Subjective Subjective The patient was seen and examined at the bedside this morning. Events from the last 24 hours have been reviewed. The patient is currently afebrile, hemodynamically stable and maintaining appropriate oxygen saturations on AVAPS with an FiO2 requirement of 35%. Per nursing report, the patient has remained delirious overnight. She remains on D5W due to hypernatremia and hyperchloremia. Sodium is stable this morning at 163 with a potassium of 3.4 and chloride of 129. Per nursing report, the patient has continued to decompensate from a respiratory and clinical perspective over the last 48 hours. Objective Data Objective Data The patient's most recent lab work, culture data and imaging studies have all been personally reviewed. Surface echocardiogram from December 2018 revealed stage I diastolic dysfunction with an ejection fraction of 70%. Blood culture dated March 06 was positive for E. coli. Strep and urine Legionella antigens were negative. Respiratory viral panel was negative. Stool for occult blood was positive. Rapid coronavirus antigen testing was negative. Vital Signs: Vital Signs Temp Pulse Resp BP Pulse Ox 98.2 F 99 38 H 140/87 H 92 03/14/21 04:00 03/14/21 05:00 03/14/21 05:00 03/14/21 05:00 03/14/21 05:00 Oxygen Flow Rate (L/min) 6 Oxygen Delivery Method Bi-pap Weight: 67.3 kg Body Mass Index (BMI) 29.2 Intake & Output: Intake and Output for Last 24 Hours 03/12/21 03/13/21 03/14/21 23:59 23:59 23:59 Intake Total 829.75 / 829.75 1410.00 / 1460.00 50 / 50 Output Total 900 / 900 700 / 800 100 / 100 Balance -70.25 / -70.25 710.00 / 660.00 -50 / -50 Medical Nutrition Assessment Dietitian: Nutrition Therapy Diagnosis Start: 03/07/21 11:37 Freq: Status: Active Protocol: Document 03/13/21 10:04 [facility] (Rec: 03/13/21 10:05 [facility] [id number]) Nutrition Malnutrition Evidence of Malnutrition Exists No Intake Problem Inadequate Oral Intake Etiology related to acute illness, lethargy Signs/Symptoms as evidenced by d/t concerns w / dysphagia/aspiration, and < 50% 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 Suggest advance diet as tolerated and medically able from transitional to goal diet of cardiac, 1800 calorie controlled diet - consistency per MANAGER OF APPLICATIONS DEVELOPMENT. Lab / Micro Data Attestation: I reviewed the patient's lab results. Result Diagrams: 03/14/21 04:10 03/14/21 04:10 Labs: Laboratory Results - last 24 hr 03/13/21 14:20: Sodium 163 H* 03/14/21 04:10: WBC 13.1 H, RBC 3.94 L, Hgb 12.8, Hct 39.2, MCV 99.5 H, MCH 32.5 H, MCHC 32.7, RDW Std Deviation 58.8 H, RDW Coeff of Suki 16.1 H, Plt Count 103 L , MPV 10.0, Immature Gran % (Auto) 1.900 H, Neut % (Auto) 91.2 H, Lymph % (Auto) 4.5 L, [place] % (Auto) 2.3, Eos % (Auto) 0.0, Baso % (Auto) 0.1, Absolute Neuts (auto) 12.0 H, Absolute Lymphs (auto) 0.59 L, Nucleated RBC % 0 03/14/21 04:10: Sodium 163 H*, Potassium 3.4 L, Chloride 129 H*, Carbon Dioxide 28.0, Anion Gap 6, BUN 38 H, Creatinine 1.27 H, Estim Creat Clear Calc 36.79, Est GFR (MDRD) Af Amer 55 L, Est GFR (MDRD) Non-Af 45 L, BUN/Creatinine Ratio 29.9 H, Glucose 241 H, Calcium 9.2 Micro: Microbiology 03/11/21 17:02 Mucosa - Nasopharyngeal SARS-CoV-2 Antigen (Rapid) - Final 03/06/21 22:08 Blood Culture (Wb) - Anticubital Left Blood Culture - Final Gram negative javid 03/06/21 21:45 Blood Culture (Wb) - Anticubital Right Blood Culture - Final Escherichia coli 03/07/21 06:24 Stool C. difficile DNA Amplification - Final 03/07/21 02:05 Mucosa - Nose Respiratory Panel (PCR) - Final 03/07/21 02:30 Stool Stool Occult Blood (SHAYLA) - Final Occult Blood Positive 03/06/21 22:35 Urine Catheter - Catheter Legionella Antigen - Final 03/06/21 22:35 Urine Catheter - Catheter Streptococcus pneumoniae Antigen (M - Final Physical Exam Const General Appearance: in distress and on BiPAP Orientation / Consciousness: awake, confused and disoriented Exam Limitations: altered mental status HEENT normocephalic and head/scalp atraumatic Eyes PERRL, EOMs intact bilaterally and conjunctivae normal Neck supple General: trachea midline and CVC in place Resp Effort and Inspection: tachypneic and labored Auscultation: rales and diminished lung sounds; Negative for rhonchi or wheezes Cardio S1 normal heart sound and S2 normal heart sound Rate: tachycardic GI normal to inspection, nondistended, normoactive bowel sounds Extremity no clubbing, cyanosis or edema Skin no rashes or lesions noted Neuro moves all extremities and no focal motor deficits Psych Mood & Affect: flat affect Charges/Coding Procedures Hospitalists Procedures: 61384 Critial Care 1st Hr
[2021-03-14] MEDS: Ipratropium/Albuterol Sulfate 3 ML AMPUL.NEB INHALATION ×3 (07:06→20:10)
[2021-03-14 08:45] LABS: Troponin-I HS 444.6 pg/mL (3.0-53.7)
[2021-03-14 08:54] LABS: D-Dimer Quantitative (DVT/PE) > 20.00 FEU/ug/m (0.27-0.49)
--- NOTE | 2021-03-14 08:54 | CT_ITS ---
ACR Level 3 findings have been noted. An addendum which confirms receipt of the report will follow. HISTORY: Acute Respiratory Failure. TECHNIQUE: Helically acquired images of the chest following IV contrast as per pulmonary angiogram protocol with 2D and 3D reconstructions. A radiation dose optimization technique was used for this scan. IV Contrast dosage and agent: 100 mL [id number]-[id number]. # of images incl. paperwork: [id number]. COMPARISON: XR 03/11/2021, CT 09/15/2020. FINDINGS: CENTRAL AIRWAYS: Linear inspissated material in the trachea with adherent material extending into the right bronchus. LUNGS: Severe bilateral interstitial and alveolar opacities with septal thickening, obscuring previously described pulmonary nodules. Mild emphysema. PLEURA: Mild bilateral pleural effusions. PULMONARY ARTERIES: Multiple small right lower lobe segmental filling defects. Motion artifact noted. HEART/PERICARDIUM: Heart within normal limits in size. No significant pericardial effusion. Coronary artery disease. AORTA/VESSELS: No aortic aneurysm or dissection flap. Right internal jugular central venous catheter tip at the distal superior vena cava. MEDIASTINUM/TITA: No enlarged lymph nodes. OSSEOUS STRUCTURES: Cervical spinal fusion hardware again noted.. UPPER ABDOMEN: Gastric postoperative change. CT/CTA Chest W/WO Contrast IMPRESSION: Small right lower lobe segmental pulmonary emboli. Severe bilateral alveolar and interstitial opacities from pneumonia, pulmonary edema, or ARDS with mild bilateral pleural effusions. Individualized dose optimization techniques were used for this CT. at 1018 Reported and signed by: Mandy Thomas MD Electronically Signed: Mandy Thomas MD at 10:16 EDT Tel , Service support ,
--- NOTE | 2021-03-14 08:56 | ECHOD_ITS ---
Reason For Study: DYSPNEA/SOB Procedure This was a limited 2D transthoracic echocardiogram. During exam patient was agitated and uncooperative. Limited views were obtained. Exam performed portable in ICU/CCU. The exam was abbreviated due to the COVID 19 protocol. Left Ventricle Normal LV size. The estimated ejection fraction is 60 %. Unable to assess diastolic dysfunction. No regional wall motion abnormalities noted. Right Ventricle Normal RV size. Normal systolic function. Atria Normal left atrium. Normal right atrium. Mitral Valve There is no mitral valve stenosis. No mitral valve insufficiency. Tricuspid Valve There is no tricuspid stenosis. Unable to estimate RV systolic pressure due to inadequate jet, pulmonary artery pressure probably normal. Aortic Valve There is no aortic stenosis. No aortic valve insufficiency. Pericardium/Pleural No pericardial effusion. MMode/2D Measurements & Calculations LVIDd: 4.4 cm IVSd: 0.96 cm Ao root diam: 3.1 cm LVIDs: 3.4 cm LVPWd: 0.96 cm FS: 23.7 % LAV(MOD-bp): 41.7 ml SV(MOD-sp4): 36.8 ml LVAd ap4: 23.7 cm2 LAV(MOD-bp) Indexed: 24.8 ml/m2 LVLd ap4: 7.2 cm LAV(MOD-sp2): 40.8 ml EDV(MOD-sp4): 65.6 ml LAV(MOD-sp4): 35.7 ml EDV(sp4-el): 65.8 ml LVAs ap4: 13.9 cm2 LVLs ap4: 5.8 cm ESV(MOD-sp4): 28.8 ml ESV(sp4-el): 28.4 ml EF(MOD-sp4): 56.1 % EF(sp4-el): 56.8 % SV(sp4-el): 37.4 ml LA dimension(2D): 3.1 cm LA A4 area: 16.0 cm2 RA A4 area: 10.5 cm2 ECHO/Echo Complete Interpretation Summary Limited study as patient was uncooperative The estimated ejection fraction is 60 %. Limited study as patient was uncooperative. Ordering Physician: Shawn Briggs Referring Physician: KASEY MORAN Performed By: Susana Kenyon RDCS
--- NOTE | 2021-03-14 09:27 | CASEMGMT ---
Social Work Participated in ICU rounds. Patient continues to medically decline. Patient currently delirious, unable to discuss with further. Nursing staff to contact patient son. Will continue to follow. Becky ALAMO, MIGUEL
[2021-03-14 10:47] LABS: Troponin-I HS 606.7 pg/mL (3.0-53.7)
--- NOTE | 2021-03-14 11:12 | CASEMGMT ---
Social Work Telephone call from Kim Rutledge with [facility]. This web content & social media manager confirmed that patient is still a patient with [facility] on ICU. Kim request to be updated on patient discharge. Kim's direct number is [phone]. Will continue to follow. Becky ALAMO, MIGUEL
[2021-03-14] MEDS: HEPARIN/D5w 25,000 UNITS 25,000 UNITS/250 ML IV.SOLN. 10 UNITS IV (11:31)
[2021-03-14] MEDS: Insulin Lispro 100 UNIT/ML INSULN.PEN SC ×3 (11:33→23:22)
[2021-03-14 11:35] LABS: Partial Thromboplast Time 29.9 Seconds (24.1-36.2)
[2021-03-14] MEDS: Heparin Injection (Vial) 5,000 UNIT/ML VIAL 4500 UNIT IV (11:39)
[2021-03-14 11:55] LABS: Bedside Glucose 241 mg/dL (70-110)
[2021-03-14 15:13] LABS: Troponin-I HS 2812.4 pg/mL (3.0-53.7)
[2021-03-14 15:19] LABS: Probe Check PASS
[2021-03-14 15:22] LABS: M R Staph aureus DNA By PCR POSITIVE (Negative)
--- NOTE | 2021-03-14 15:23 | PCM.PN.HOSP ---
Subjective Subjective Increasing confusion disorientation, no new issues overnight. Still needs BiPAP to maintain oxygen saturations. Objective Data Objective Data Vital Signs: Vital Signs Temp Pulse Resp BP Pulse Ox 97.4 F L 112 H 22 H 133/90 H 91 03/14/21 12:00 03/14/21 15:00 03/14/21 15:00 03/14/21 15:00 03/14/21 15:00 Oxygen Flow Rate (L/min) 60 Oxygen Delivery Method Airvo Weight: 148 lb 5.938 oz Body Mass Index (BMI) 29.2 Intake & Output: Intake and Output for Last 24 Hours 03/13/21 03/14/21 03/15/21 03:59 03:59 03:59 Intake Total 829.75 / 829.75 1460.00 / 1460.00 1180 / 1180 Output Total 900 / 900 800 / 800 500 / 500 Balance -70.25 / -70.25 660.00 / 660.00 680 / 680 Medical Nutrition Assessment Dietitian: Nutrition Therapy Diagnosis Start: 03/07/21 11:37 Freq: Status: Active Protocol: Document 03/14/21 09:34 FANNIE (Rec: 03/14/21 09:34 FANNIE [id number]) Nutrition Malnutrition Evidence of Malnutrition Exists No Intake Problem Inadequate Oral Intake Etiology related to acute illness, lethargy Signs/Symptoms as evidenced by d/t concerns w / dysphagia/aspiration, and < 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 Suggest advance diet as tolerated and medically able from transitional to goal diet of cardiac, 1800 calorie controlled diet - consistency per BOAT CREW DECK HAND. Lab / Micro Data Result Diagrams: 03/14/21 04:10 03/14/21 04:10 Labs: Laboratory Results - last 24 hr 03/14/21 04:10: WBC 13.1 H, RBC 3.94 L, Hgb 12.8, Hct 39.2, MCV 99.5 H, MCH 32.5 H, MCHC 32.7, RDW Std Deviation 58.8 H, RDW Coeff of Suki 16.1 H, Plt Count 103 L, MPV 10.0, Immature Gran % (Auto) 1.900 H, Neut % (Auto) 91.2 H, Lymph % (Auto) 4.5 L, [place] % (Auto) 2.3, Eos % (Auto) 0.0, Baso % (Auto) 0.1, Absolute Neuts (auto) 12.0 H, Absolute Lymphs (auto) 0.59 L, Nucleated RBC % 0 03/14/21 04:10: Sodium 163 H*, Potassium 3.4 L, Chloride 129 H*, Carbon Dioxide 28.0, Anion Gap 6, BUN 38 H, Creatinine 1.27 H, Estim Creat Clear Calc 36.79, Est GFR (MDRD) Af Amer 55 L, Est GFR (MDRD) Non-Af 45 L, BUN/Creatinine Ratio 29.9 H, Glucose 241 H, Calcium 9.2 03/14/21 08:15: Troponin I High Sens 444.6 H* 03/14/21 08:15: B-Natriuretic Peptide 1047.4 H 03/14/21 08:15: D-Dimer Quant (PE/DVT) > 20.00 H* 03/14/21 08:15: APTT 29.9 03/14/21 10:05: Troponin I High Sens 606.7 H* 03/14/21 10:40: COVID-19 (ТАТЬЯНА) Cancelled 03/14/21 11:29: POC Glucose 241 H 03/14/21 11:30: MRSA (PCR) POSITIVE H 03/14/21 14:40: Troponin I High Sens 2812.4 H* 03/14/21 : COVID-19 (ТАТЬЯНА) Not Detected Micro: Microbiology 03/11/21 17:02 Mucosa - Nasopharyngeal SARS-CoV-2 Antigen (Rapid) - Final 03/06/21 22:08 Blood Culture (Wb) - Anticubital Left Blood Culture - Final Gram negative javid 03/06/21 21:45 Blood Culture (Wb) - Anticubital Right Blood Culture - Final Escherichia coli 03/07/21 06:24 Stool C. difficile DNA Amplification - Final 03/07/21 02:05 Mucosa - Nose Respiratory Panel (PCR) - Final 03/07/21 02:30 Stool Stool Occult Blood (SHAYLA) - Final Occult Blood Positive 03/06/21 22:35 Urine Catheter - Catheter Legionella Antigen - Final 03/06/21 22:35 Urine Catheter - Catheter Streptococcus pneumoniae Antigen (M - Final Radiography Diagnostic Testing: Radiology Impression Chest CTA 03/14/21 08:54 IMPRESSION: Small right lower lobe segmental pulmonary emboli. Severe bilateral alveolar and interstitial opacities from pneumonia, pulmonary edema, or ARDS with mild bilateral pleural effusions. Individualized dose optimization techniques were used for this CT. at 1018 Reported and signed by: Mandy Thomas MD Electronically Signed: Mandy Thomas MD at 10:16 EDT Tel , Service support , ADDENDUM: 03/14/21 1040 IMPRESSION: Small right lower lobe segmental pulmonary emboli. Severe bilateral alveolar and interstitial opacities from pneumonia, pulmonary edema, or ARDS with mild bilateral pleural effusions. Individualized dose optimization techniques were used for this CT. at 1018 Reported and signed by: Mandy Thomas MD N.B. : Cate Serna;[phone], RN, confirmed on 03/14/2021 10:33:20 (ET) that the healthcare facility has received the radiology report. Electronically Signed: Mandy Thomas MD at 10:16 EDT Tel , Service support , Echocardiogram 03/14/21 08:56 Interpretation Summary Limited study as patient was uncooperative The estimated ejection fraction is 60 %. Limited study as patient was uncooperative. Ordering Physician: Shawn Briggs Referring Physician: KASEY MORAN Performed By: Susana Kenyon RDCS Physical Exam Const alert and no apparent distress General Appearance: cooperative Orientation / Consciousness: confused and disoriented HEENT normocephalic and moist oral mucous membranes Eyes PERRL, EOMs intact bilaterally and conjunctivae normal Neck supple and no JVD Resp normal respiratory effort, no retractions and no use of accessory muscles Auscultation: rales and diminished lung sounds; Negative for crackles, rhonchi or wheezes Cardio regular rhythm, S1 normal heart sound, S2 normal heart sound and no murmurs Rate: tachycardic GI soft to palpation, non-tender and non-distended; Negative for hepatosplenomegaly Extremity no clubbing, cyanosis or edema Skin no rashes or lesions noted Neuro no focal motor deficits and no sensory deficits noted Psych Mood & Affect: flat affect Assessment & Plan Assessment/Plan (1) Septic shock: (2) Rhabdomyolysis: QUALIFIERS: Rhabdomyolysis type: non-traumatic Qualified Code(s): M62.82 - Rhabdomyolysis (3) Hypokalemia: (4) UTI (urinary tract infection): QUALIFIERS: Urinary tract infection type: acute cystitis Hematuria presence: without hematuria Qualified Code(s): N30.00 - Acute cystitis without hematuria (5) Aspiration into airway: PLAN: 1. Acute Septic Shock potentially secondary to acute complicated urinary tract infection versus ischemic bowel -Evaluated by general surgery, no surgical indication at this time. Pain has resolved -Had a pansensitive E. coli in her blood, will get started on Rocephin however transitioned to Zosyn secondary to continued leukocytosis. -CTA of the chest showed significant patchy infiltrates hence the broadening 1999 2. Aspiration pneumonitis versus pneumonia with hypercapnic respiratory failure with pulmonary embolism/chronic COPD/LATA -She had an aspiration has been on BiPAP since. He has bilateral pulmonary infiltrates -We will continue to monitor, she does have a history of COPD so may necessitate steroids in addition to her current therapy -Appreciate pulmonology assistance -Currently maintaining oxygen saturations on nasal cannula, will continue to monitor throughout the day in the ICU -Given her worsening oxygen status PCR for Covid was checked and negative, CTA did not demonstrate PE and was started on a heparin drip -Continue with inhalers 3. DM2 VILMA on CKD III, unclear subtype/Hypernatremia/anemia of chronic disease with iron deficiency anemia -Has been some intermittent Lasix for Rales on physical exam. However she does have some hypernatremia -Continue with D5W continue to monitor -Hemoglobin is stable, will continue to monitor -Continue with iron supplementation -Continue sliding scale insulin and make adjustments as necessary 4. HTN/HLD -Blood pressure stable, will continue to monitor and adjust medications as necessary -Continue to give intermittent Lasix based on respiratory status as indicated 5. Anxiety/depression/bipolar disorder/chronic back pain/cervical radiculitis/fibromyalgia -Continue with her home medications including trazodone, Zoloft, Wellbutrin, Abilify, Lamictal. -Lamictal level was normal DVT: SCDs, thrombocytopenia is improving after cessation of Lovenox Charges/Coding Visit Charges Inpatient E&M: 43952 Subs Hosp L2
[2021-03-14 18:58] LABS: Bedside Glucose 267 mg/dL (70-110)
[2021-03-14 19:20] LABS: Partial Thromboplast Time 69.6 Seconds (24.1-36.2)
--- NOTE | 2021-03-14 19:30 | PCM.RX.CS ---
Consult Pharmacy has been consulted to manage selected antiobiotic: Vancomycin Type of Consult: New start Prior Doses of Antibiotics Received/Current Regimen: Medications Vancomycin HCl 1,750 mg/ (Sodium Chloride) 535 mls @ 250 mls/hr IV X1 ONE Stop: 03/14/21 19:38 Last Admin: 03/14/21 17:38 Dose: 250 mls/hr Documented by: Labs: Sodium 163 mmol/L (136-145) H* 03/14/21 04:10 Potassium 3.4 mmol/L (3.5-5.1) L 03/14/21 04:10 Chloride 129 mmol/L (98-107) H* 03/14/21 04:10 Carbon Dioxide 28.0 mmol/L (21.0-32.0) 03/14/21 04:10 Anion Gap 6 (5-15) 03/14/21 04:10 BUN 38 mg/dL (7-18) H 03/14/21 04:10 Creatinine 1.27 mg/dL (0.55-1.02) H 03/14/21 04:10 Est GFR (MDRD) Af Amer 55 mL/min (>60) L 03/14/21 04:10 Est GFR (MDRD) Non-Af 45 mL/min (>60) L 03/14/21 04:10 BUN/Creatinine Ratio 29.9 RATIO (10-20) H 03/14/21 04:10 Glucose 241 mg/dL (74-106) H 03/14/21 04:10 Microbiology: Microbiology 03/11/21 17:02 Mucosa - Nasopharyngeal SARS-CoV-2 Antigen (Rapid) - Final 03/06/21 22:08 Blood Culture (Wb) - Anticubital Left Blood Culture - Final Gram negative javid 03/06/21 21:45 Blood Culture (Wb) - Anticubital Right Blood Culture - Final Escherichia coli 03/07/21 06:24 Stool C. difficile DNA Amplification - Final 03/07/21 02:05 Mucosa - Nose Respiratory Panel (PCR) - Final 03/07/21 02:30 Stool Stool Occult Blood (SHAYLA) - Final Occult Blood Positive 03/06/21 22:35 Urine Catheter - Catheter Legionella Antigen - Final 03/06/21 22:35 Urine Catheter - Catheter Streptococcus pneumoniae Antigen (M - Final Weight used for dosin kg Estimated Creatinine Clearance: 37 Goal Trough: 15-20 mcg/mL Pharmacy Plan for Drug Dosinmg x1 followed by 1000mg IV q24h with trough prior to 3rd dose per policy. Pharmacy Service will continue to monitor and adjust dosing as required. Follow-Up Labs: Trough Vancomycin - 03/16 @ 1730
[2021-03-14 23:25] LABS: Bedside Glucose 188 mg/dL (70-110)
[2021-03-15] VITALS (38 sets, daily range): BP systolic 91–138; BP diastolic 57–105; PULSE 76–112; RESP 17–34; TEMP 35.9–36.7; O2SAT 92–100
[2021-03-15 00:18] LABS: Partial Thromboplast Time 90.6 Seconds (24.1-36.2)
--- NOTE | 2021-03-15 05:30 | PCM.PN.INT ---
Assessment & Plan Assessment/Plan (1) Aspiration into airway: (2) Acute respiratory failure with hypoxia and hypercapnia: PLAN: RECOMMENDATIONS: 1. Continue to wean FiO2 to maintain saturations at or above 90%. 2. Continue D5W infusion. Continue to monitor daily BMP. 3. Continue broad-spectrum antimicrobial coverage for now. 4. Discontinue heparin and transition patient to bivalirudin. 5. Send PF4 antibody immunoassay (HIT evaluation) 6. Continue scheduled bronchodilator therapy. 7. Goals of care discussion with the patient's family. IMPRESSIONS: 1. Septic shock secondary to UTI versus bowel ischemia The patient was apparently improved from a clinical perspective prior to a witnessed aspiration event several days ago. Since that time, she has decompensated clinically. The patient remains on antimicrobials, which will be continued. Repeat cultures are pending. The patient remains hemodynamically stable at this time. 2. Acute hypoxemic and hypercarbic respiratory failure Initially felt to be the consequence of a witnessed aspiration event. CTA chest did reveal evidence of a pulmonary embolism along with diffuse bilateral airspace disease, concerning for ARDS. Antibiotics were subsequently broadened to include vancomycin and Zosyn. Follow-up coronavirus PCR testing was negative. The patient does have a known history of obstructive lung disease and chronic tobacco dependency, for which she will be continued on scheduled bronchodilator therapy. Wean FiO2 to maintain oxygen saturations at or above 90%. 3. Encephalopathy Likely metabolic/infectious in etiology. Plan to continue current supportive measures. 4. Thrombocytopenia Clinical concern for potential heparin-induced thrombocytopenia (4 Ts score of 5 = intermediate probability). Will send anti-PF4 heparin antibody immunoassay. The patient's continuous heparin infusion will be discontinued and she will be transitioned to bivalirudin. 5. Hypernatremia/hyperchloremia Improving with free water replacement, which will be continued without change. Continue to monitor BMP closely. 6. Troponin elevation Potentially related to demand ischemia in the setting of #1 and 2. Echocardiogram revealed intact systolic function. Cardiology consultation is pending. 7. Chronic iron deficiency anemia/anxiety/depression/bipolar disorder/chronic pain syndrome/diabetes mellitus Complicates care, management, recovery and prognosis. Start low-dose sliding scale coverage today. Recommend goals of care discussion with the patient's family. TIME: 35 minutes of critical care time, independent of procedures, was spent addressing the patient's septic shock, acute combined respiratory failure, encephalopathy, hypernatremia, thrombocytopenia, review of all data and collaboration with the care team. ([id number]) Subjective Subjective The patient was seen and examined at the bedside this morning. Events from the last 24 hours have been reviewed. The patient is currently afebrile, hemodynamically stable and maintaining appropriate oxygen saturations on Airvo heated high flow oxygen with an FiO2 requirement of 85% and flow rate of 60 L/min. Yesterday, the patient underwent a CTA chest, which did identify the presence of a pulmonary embolism along with diffuse bilateral airspace opacities concerning for ARDS. Subsequent work-up including coronavirus PCR was negative. In light of the patient's clinical decompensation, her antibiotics were broadened to include vancomycin and Zosyn. She was also started on a continuous heparin infusion. She is currently documented to be overall net +4.1 L for the hospital admission. This morning, the patient's white count remains elevated at 16,000. Platelet count dropped to 50,000 this morning. Accordingly, the patient's heparin was discontinued and she was transitioned to bivalirudin, over concern for potential HIT. Sodium has improved to 154. Troponin is elevated this morning to 5400. Objective Data Objective Data The patient's most recent lab work, culture data and imaging studies have all been personally reviewed. Surface echocardiogram from December 2018 revealed stage I diastolic dysfunction with an ejection fraction of 70%. Blood culture dated March 06 was positive for E. coli. Strep and urine Legionella antigens were negative. Respiratory viral panel was negative. Stool for occult blood was positive. Rapid coronavirus antigen testing was negative. Vital Signs: Vital Signs Temp Pulse Resp BP Pulse Ox 98.1 F 90 26 H 103/75 94 03/15/21 04:00 03/15/21 05:00 03/15/21 05:00 03/15/21 05:00 03/15/21 05:00 Oxygen Flow Rate (L/min) 60 Oxygen Delivery Method Airvo Weight: 69.4 kg Body Mass Index (BMI) 29.2 Intake & Output: Intake and Output for Last 24 Hours 03/13/21 03/14/21 03/15/21 23:59 23:59 23:59 Intake Total 1410.00 / 1460.00 3557.5 / 3557.5 488 / 488 Output Total 700 / 800 800 / 950 150 / 150 Balance 710.00 / 660.00 2757.5 / 2607.5 338 / 338 Medical Nutrition Assessment Dietitian: Nutrition Therapy Diagnosis Start: 03/07/21 11:37 Freq: Status: Active Protocol: Document 03/14/21 09:34 FANNIE (Rec: 03/14/21 09:34 SLA [id number]) Nutrition Malnutrition Evidence of Malnutrition Exists No Intake Problem Inadequate Oral Intake Etiology related to acute illness, lethargy Signs/Symptoms as evidenced by d/t concerns w / dysphagia/aspiration, and < 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 Suggest advance diet as tolerated and medically able from transitional to goal diet of cardiac, 1800 calorie controlled diet - consistency per CHOIR ACCOMPANIST. Lab / Micro Data Attestation: I reviewed the patient's lab results. Result Diagrams: 03/15/21 05:35 03/15/21 05:35 Labs: Laboratory Results - last 24 hr 03/14/21 08:15: Troponin I High Sens 444.6 H* 03/14/21 08:15: B-Natriuretic Peptide 1047.4 H 03/14/21 08:15: D-Dimer Quant (PE/DVT) > 20.00 H* 03/14/21 08:15: APTT 29.9 03/14/21 10:05: Troponin I High Sens 606.7 H* 03/14/21 10:40: COVID-19 (ТАТЬЯНА) Cancelled 03/14/21 11:29: POC Glucose 241 H 03/14/21 11:30: MRSA (PCR) POSITIVE H 03/14/21 14:40: Troponin I High Sens 2812.4 H* 03/14/21 17:43: POC Glucose 267 H 03/14/21 17:50: APTT 69.6 H 03/14/21 23:21: POC Glucose 188 H 03/14/21 23:47: APTT 90.6 H* 03/14/21 : COVID-19 (ТАТЬЯНА) Not Detected Micro: Microbiology 03/11/21 17:02 Mucosa - Nasopharyngeal SARS-CoV-2 Antigen (Rapid) - Final 03/06/21 22:08 Blood Culture (Wb) - Anticubital Left Blood Culture - Final Gram negative javid 03/06/21 21:45 Blood Culture (Wb) - Anticubital Right Blood Culture - Final Escherichia coli 03/07/21 06:24 Stool C. difficile DNA Amplification - Final 03/07/21 02:05 Mucosa - Nose Respiratory Panel (PCR) - Final 03/07/21 02:30 Stool Stool Occult Blood (SHAYLA) - Final Occult Blood Positive 03/06/21 22:35 Urine Catheter - Catheter Legionella Antigen - Final 03/06/21 22:35 Urine Catheter - Catheter Streptococcus pneumoniae Antigen (M - Final Radiography Diagnostic Testing: Radiology Impression Chest CTA 03/14/21 08:54 IMPRESSION: Small right lower lobe segmental pulmonary emboli. Severe bilateral alveolar and interstitial opacities from pneumonia, pulmonary edema, or ARDS with mild bilateral pleural effusions. Individualized dose optimization techniques were used for this CT. at 1018 Reported and signed by: Mandy Thomas MD Electronically Signed: Mandy Thomas MD at 10:16 EDT Tel , Service support , ADDENDUM: 03/14/21 1040 IMPRESSION: Small right lower lobe segmental pulmonary emboli. Severe bilateral alveolar and interstitial opacities from pneumonia, pulmonary edema, or ARDS with mild bilateral pleural effusions. Individualized dose optimization techniques were used for this CT. at 1018 Reported and signed by: Mandy Thomas MD N.B. : Cate Serna;[phone], RN, confirmed on 03/14/2021 10:33:20 (ET) that the healthcare facility has received the radiology report. Electronically Signed: Mandy Thomas MD at 10:16 EDT Tel , Service support , Echocardiogram 03/14/21 08:56 Interpretation Summary Limited study as patient was uncooperative The estimated ejection fraction is 60 %. Limited study as patient was uncooperative. Ordering Physician: Shawn Briggs Referring Physician: KASEY MORAN Performed By: Susana Kenyon RDCS Physical Exam Const alert General Appearance: ill appearing and frail Orientation / Consciousness: awake, oriented to person, oriented to time and confused Exam Limitations: altered mental status HEENT normocephalic and head/scalp atraumatic Mouth: dry mucous membranes Eyes PERRL, EOMs intact bilaterally and conjunctivae normal Neck supple General: trachea midline and CVC in place Resp Effort and Inspection: tachypneic and labored Auscultation: rales, wheezes and diminished lung sounds; Negative for rhonchi Cardio S1 normal heart sound and S2 normal heart sound Rate: tachycardic GI normal to inspection, nondistended, normoactive bowel sounds Extremity no clubbing, cyanosis or edema Skin no rashes or lesions noted Neuro moves all extremities and no focal motor deficits Psych Mood & Affect: flat affect Charges/Coding Procedures Hospitalists Procedures: 16184 Critial Care 1st Hr
[2021-03-15] MEDS: 0.9% Saline Lock 10 ML Syringe IV ×2 (05:34→07:58)
[2021-03-15] MEDS: Insulin Lispro 100 UNIT/ML INSULN.PEN SC ×3 (05:39→18:12)
[2021-03-15 05:45] LABS: Bedside Glucose 272 mg/dL (70-110)
[2021-03-15 06:05] LABS: Absolute Lymphocyte Count 0.83 X10^3/uL (0.83-4.51); Absolute Neutrophil Count 14.8 X10^3/uL (2.0-7.7); Basophil# 0.02 X10^3/uL; Basophil% 0.1 % (0-1); Hematocrit 37.3 % (37-47); Hemoglobin 11.8 g/dL (12.0-15.0); Lymphocyte # 0.83 X10^3/ul (0.83-4.51); Lymphocyte % 5.1 % (19-41); Mean Corp Hgb Conc 31.6 g/dL (32-36); Mean Corpuscular Hgb 32.3 pg (27.0-32.0); Mean Corpuscular Volume 102.2 fL (81-99); Mean Platelet Vol. 10.9 fl (6.2-12.0); Monocyte# 0.35 X10^3/uL; Monocyte% 2.2 % (0-10); NRBC Flagged by Analyzer 0.1 % (0-5); Neutrophil # 14.84 X10^3/uL (2.7-7.7); Neutrophil % 91.4 % (47-70); POSITIVE COUNT YES; Platelet Count 50 K/mm3 (150-450); RBC Distribution Width CV 16.8 % (11.6-14.6); RBC Distribution Width SD 63.5 fl (35.1-43.9); Red Blood Count 3.65 M/mm3 (4.2-5.4); White Blood Count 16.2 K/mm3 (4.4-11.0)
[2021-03-15 06:08] LABS: Differential Indicated SCAN CRITERIA MET
[2021-03-15 06:23] LABS: Anion Gap 4 (5-15); BUN 36 mg/dL (7-18); BUN/Creat Ratio 32.7 RATIO (10-20); Calcium,Total 8.2 mg/dL (8.5-10.1); Chloride 121 mmol/L (98-107); EST Glomerular Filtration Rate 54 mL/min (>60); Est Glom Filt Rate - Afr Amer 65 mL/min (>60); Estimated Creatinine Clearance 42.48 ml/min; Glucose 281 mg/dL (74-106); Potassium 3.7 mmol/L (3.5-5.1); Sodium Level 154 mmol/L (136-145)
[2021-03-15] MEDS: Ipratropium/Albuterol Sulfate 3 ML AMPUL.NEB INHALATION ×4 (07:00→19:24)
[2021-03-15 07:02] LABS: Partial Thromboplast Time 98.6 Seconds (24.1-36.2)
[2021-03-15] MEDS: CHLORHEXIDINE GLUC 2% CLOTH 1 EACH TOWELETTE TOPICAL (07:59)
[2021-03-15] MEDS: Furosemide 40 MG/4 ML Vial IV (07:59)
[2021-03-15 10:34] LABS: International Normalized Ratio 1.7
--- NOTE | 2021-03-15 11:32 | CASEMGMT ---
SW met with patient. Introduced self again as SW did introduce self during interdisciplinary rounds this am. SW explained to patient that she may need to go to a jail facility short term for rehab. She said no right away. SW told her we will see how she does with therapy and we can talk again. SW did give her a list and explained that the ones highlighted in pink are the ones that take her insurance. She then asked for water and per RN Cate she needs close supervision to drink so she will take care of it. Lauren Chong [employer]IST RE
[2021-03-15 12:26] LABS: International Normalized Ratio 1.9; Prothrombin Time (Protime)PT. 20.7 SECONDS (11.7-14.9)
[2021-03-15 12:27] LABS: Partial Thromboplast Time 48.2 Seconds (24.1-36.2)
[2021-03-15 13:11] LABS: Bedside Glucose 234 mg/dL (70-110)
--- NOTE | 2021-03-15 14:54 | CON.PCM.CA_ITS ---
Assessment & Plan Assessment/Plan (1) Elevated troponin: PLAN: Likely type II AK secondary to respiratory failure, septic shock. Echo showed preserved EF. No other cardiac work-up required at this time. Stress test could be considered as an outpatient if felt to be clinically relevant at that time. We will sign off at this time. Please let us know if we can be of any further assistance. HPI Consult Data Date of Consult: 03/15/21 HPI Narrative HPI Narrative: MARGARITA JOSHI, is a 61 F who was admitted a few days back with septic shock secondary to UTI versus ischemic bowel, followed by aspiration pneumonitis with respiratory failure, also diagnosed with PE. Cardiology consult was requested as patient's high-sensitivity troponin was elevated to a little over 5000. Patient denies any chest pain. PFSH Medical History Anxiety Cervical radiculitis Chest pain Chronic back pain CKD (chronic kidney disease) stage 3, GFR 30-59 ml/min COPD (chronic obstructive pulmonary disease) CPAP (continuous positive airway pressure) dependence Depression Diabetes mellitus, type II Fibromyalgia Hyperlipidemia Hypertension Smoker Tobacco use Home Medications simvastatin 20 mg PO QHS 10/08/15 [History Last Taken 05/17/18] trazodone 200 mg PO QHS 08/23/16 [History Last Taken 05/17/18] linagliptin 5 mg PO DAILY 10/15/17 [History Last Taken 05/18/18] furosemide 20 mg tablet 20 mg PO 1200 tab 11/15/17 [History Last Taken 04/20/18 12:00] gabapentin 300 mg PO 0800,1200 11/28/17 [History Last Taken 09/20/18 08:40] gabapentin 600 mg PO QHS 04/20/18 [History Last Taken 05/17/18] albuterol sulfate 90 mcg/actuation aerosol inhaler 2 puff INHALATION Q6H PRN #1 device 06/18/18 [Rx Last Taken Unknown] allopurinol 300 mg PO DAILY 07/30/18 [History Last Taken Unknown] Potassium Chloride 2 tablet PO BID 07/09/19 [History Last Taken Unknown] aripiprazole 5 mg PO DAILY 07/09/19 [History Last Taken Unknown] bupropion HCl (smoking deter) 150 mg PO DAILY 07/09/19 [History Last Taken Unknown] cholecalciferol (vitamin D3) 1,000 unit PO DAILY 07/09/19 [History Last Taken Unknown] docusate sodium 100 mg PO PRN PRN 07/09/19 [History Last Taken Unknown] ferrous sulfate 325 mg PO DAILY 07/09/19 [History Last Taken Unknown] furosemide 40 mg PO 0800 07/09/19 [History Last Taken Unknown] indapamide 1.25 mg PO MOFR 07/09/19 [History Last Taken Unknown] lamotrigine 100 mg PO DAILY 07/09/19 [History Last Taken Unknown] sertraline 150 mg PO DAILY 07/09/19 [History Last Taken Unknown] umeclidinium 62.5 mcg-vilanterol 25 mcg/actuation powdr for inhalation 1 inh INHALATION DAILY #60 ea 12/17/19 [Rx Last Taken Unknown] aripiprazole mg 03/06/21 [History Last Taken Unknown] Allergy/AdvReac Type Severity Reaction Status Date / Time No Known Allergies Allergy Verified 03/06/21 20:11 Family History (Updated 03/07/21 @ 00:[address] Marnie Valdez MD) Mother Hypertension Father Hypertension Diabetes Surgical History (Updated 03/07/21 @ 00:[address] Marnie Valdez MD) Cervical vertebral fusion history EGD with ph probe (~12/09/17) History of colonoscopy (~12/05/17) History of repair of hiatal hernia History of shoulder surgery History of tubal ligation Hx of cholecystectomy Social History (Updated 03/07/21 @ 00:[address] Marnie Valdez MD) household members: none Smoking Status: Current every day smoker tobacco type: cigarettes alcohol intake: never substance use type: does not use caffeine: No what type of physical activity do you participate in: none Physical Exam Const alert and oriented x3 Orientation / Consciousness: awake HEENT normocephalic Eyes no scleral icterus Neck supple Cardio regular rate Neuro oriented x3 Psych mental status grossly normal Charges/Coding Visit Charges Inpatient E&M: 99506 Init Hosp L2 Objective Data Vital Signs: Vital Signs Temp Pulse Resp BP Pulse Ox 97 F L 89 33 H 118/71 93 03/15/21 12:00 03/15/21 14:00 03/15/21 14:00 03/15/21 14:00 03/15/21 14:00 Oxygen Flow Rate (L/min) 60 Oxygen Delivery Method Airvo Weight: 153 lb 0.013 oz Body Mass Index (BMI) 29.2 Intake & Output: Intake and Output for Last 24 Hours 03/13/21 03/14/21 03/15/21 23:59 23:59 23:59 Intake Total 1410.00 / 1460.00 3557.5 / 3557.5 3007.20 / 3007.20 Output Total 700 / 800 800 / 950 1750 / 1750 Balance 710.00 / 660.00 2757.5 / 2607.5 1257.20 / 1257.20 Lab / Micro Data Result Diagrams: 03/15/21 05:35 03/15/21 05:35 Labs: Laboratory Results - last 24 hr 03/14/21 11:30: MRSA (PCR) POSITIVE H 03/14/21 14:40: Troponin I High Sens 2812.4 H* 03/14/21 17:43: POC Glucose 267 H 03/14/21 17:50: APTT 69.6 H 03/14/21 23:21: POC Glucose 188 H 03/14/21 23:47: APTT 90.6 H* 03/15/21 05:33: POC Glucose 272 H 03/15/21 05:35: Sodium 154 H, Potassium 3.7, Chloride 121 H, Carbon Dioxide 29.0, Anion Gap 4 L, BUN 36 H, Creatinine 1.10 H, Estim Creat Clear Calc 42.48, Est GFR (MDRD) Af Amer 65, Est GFR (MDRD) Non-Af 54 L, BUN/Creatinine Ratio 32.7 H, Glucose 281 H, Calcium 8.2 L, Troponin I High Sens 5398.7 H* 03/15/21 05:35: WBC 16.2 H, RBC 3.65 L, Hgb 11.8 L, Hct 37.3, MCV 102.2 H, MCH 32.3 H, MCHC 31.6 L, RDW Std Deviation 63.5 H, RDW Coeff of Suki 16.8 H, Plt Count 50 L*, MPV 10.9, Immature Gran % (Auto) 1.200 H, Neut % (Auto) 91.4 H, Lymph % (Auto) 5.1 L, [place] % (Auto) 2.2, Eos % (Auto) 0.0, Baso % (Auto) 0.1, Absolute Neuts (auto) 14.8 H, Absolute Lymphs (auto) 0.83, Nucleated RBC % 0.1 03/15/21 05:35: APTT 98.6 H* 03/15/21 10:10: PT 19.0 H, INR 1.7, APTT 49.0 H 03/15/21 12:05: PT 20.7 H, INR 1.9, APTT 48.2 H 03/15/21 13:06: POC Glucose 234 H Cardiology Labs/Tests 03/14/21 17:50: APTT 69.6 H 03/14/21 23:47: APTT 90.6 H* 03/15/21 05:35: Sodium 154 H, Potassium 3.7, Chloride 121 H, Carbon Dioxide 29.0, Anion Gap 4 L, BUN 36 H, Creatinine 1.10 H, Est GFR (MDRD) Af Amer 65, Est GFR (MDRD) Non-Af 54 L, BUN/Creatinine Ratio 32.7 H, Glucose 281 H, Calcium 8.2 L 03/15/21 05:35: WBC 16.2 H, RBC 3.65 L, Hgb 11.8 L, Hct 37.3, MCV 102.2 H, MCH 32.3 H, MCHC 31.6 L, Plt Count 50 L*, MPV 10.9, Immature Gran % (Auto) 1.200 H, Neut % (Auto) 91.4 H, Lymph % (Auto) 5.1 L, [place] % (Auto) 2.2, Eos % (Auto) 0.0, Baso % (Auto) 0.1, Absolute Neuts (auto) 14.8 H, Nucleated RBC % 0.1 03/15/21 05:35: APTT 98.6 H* 03/15/21 10:10: PT 19.0 H, INR 1.7, APTT 49.0 H 03/15/21 12:05: PT 20.7 H, INR 1.9, APTT 48.2 H Rhythm: EKG: ECHO: Stress Test: Cardiac Cath: PCI: CT Surgery: Holter monitor: EPS: PPM: CXR: Chest CT Scan:
[2021-03-15] MEDS: Vancomycin IV 1,000 MG/200 ML BAG 200 MG IV (18:11)
--- NOTE | 2021-03-15 18:11 | PCM.PN.HOSP ---
Subjective Subjective Appears to be doing a bit better today, she is a little more alert today and notes that she is at the hospital in [place] Objective Data Objective Data Vital Signs: Vital Signs Temp Pulse Resp BP Pulse Ox 97 F L 86 22 H 91/57 L 93 03/15/21 16:00 03/15/21 17:33 03/15/21 17:33 03/15/21 17:00 03/15/21 17:33 Oxygen Flow Rate (L/min) 60 Oxygen Delivery Method Airvo Weight: 153 lb 0.013 oz Body Mass Index (BMI) 29.2 Intake & Output: Intake and Output for Last 24 Hours 03/14/21 03/15/21 03/16/21 03:59 03:59 03:59 Intake Total 1460.00 / 1460.00 3995.5 / 3995.5 2544.20 / 2544.20 Output Total 800 / 800 850 / 850 1600 / 1600 Balance 660.00 / 660.00 3145.5 / 3145.5 944.20 / 944.20 Medical Nutrition Assessment Dietitian: Nutrition Therapy Diagnosis Start: 03/07/21 11:37 Freq: Status: Active Protocol: Document 03/15/21 09:57 SLA (Rec: 03/15/21 09:57 SLA [id number]) Nutrition Malnutrition Evidence of Malnutrition Exists No Intake Problem Inadequate Oral Intake Etiology related to acute illness, lethargy Signs/Symptoms as evidenced by d/t concerns w / dysphagia/aspiration, and < 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 Suggest advance diet as tolerated and medically able from transitional to goal diet of cardiac, 1800 calorie controlled diet - consistency per TRAVEL SALES CONSULTANT. Lab / Micro Data Result Diagrams: 03/15/21 05:35 03/15/21 05:35 Labs: Laboratory Results - last 24 hr 03/14/21 17:43: POC Glucose 267 H 03/14/21 17:50: APTT 69.6 H 03/14/21 23:21: POC Glucose 188 H 03/14/21 23:47: APTT 90.6 H* 03/15/21 05:33: POC Glucose 272 H 03/15/21 05:35: Sodium 154 H, Potassium 3.7, Chloride 121 H, Carbon Dioxide 29.0, Anion Gap 4 L, BUN 36 H, Creatinine 1.10 H, Estim Creat Clear Calc 42.48, Est GFR (MDRD) Af Amer 65, Est GFR (MDRD) Non-Af 54 L, BUN/Creatinine Ratio 32.7 H, Glucose 281 H, Calcium 8.2 L, Troponin I High Sens 5398.7 H* 03/15/21 05:35: WBC 16.2 H, RBC 3.65 L, Hgb 11.8 L, Hct 37.3, MCV 102.2 H, MCH 32.3 H, MCHC 31.6 L, RDW Std Deviation 63.5 H, RDW Coeff of Suki 16.8 H, Plt Count 50 L*, MPV 10.9, Immature Gran % (Auto) 1.200 H, Neut % (Auto) 91.4 H, Lymph % (Auto) 5.1 L, [place] % (Auto) 2.2, Eos % (Auto) 0.0, Baso % (Auto) 0.1, Absolute Neuts (auto) 14.8 H, Absolute Lymphs (auto) 0.83, Nucleated RBC % 0.1 03/15/21 05:35: APTT 98.6 H* 03/15/21 10:10: PT 19.0 H, INR 1.7, APTT 49.0 H 03/15/21 12:05: PT 20.7 H, INR 1.9, APTT 48.2 H 03/15/21 13:06: POC Glucose 234 H Micro: Microbiology 03/11/21 17:02 Mucosa - Nasopharyngeal SARS-CoV-2 Antigen (Rapid) - Final 03/06/21 22:08 Blood Culture (Wb) - Anticubital Left Blood Culture - Final Gram negative javid 03/06/21 21:45 Blood Culture (Wb) - Anticubital Right Blood Culture - Final Escherichia coli 03/07/21 06:24 Stool C. difficile DNA Amplification - Final 03/07/21 02:05 Mucosa - Nose Respiratory Panel (PCR) - Final 03/07/21 02:30 Stool Stool Occult Blood (SHAYLA) - Final Occult Blood Positive 03/06/21 22:35 Urine Catheter - Catheter Legionella Antigen - Final 03/06/21 22:35 Urine Catheter - Catheter Streptococcus pneumoniae Antigen (M - Final Physical Exam Const alert and no apparent distress General Appearance: cooperative Orientation / Consciousness: oriented to place and confused HEENT normocephalic and moist oral mucous membranes Eyes PERRL, EOMs intact bilaterally and conjunctivae normal Neck supple and no JVD Resp normal respiratory effort, no retractions and no use of accessory muscles Auscultation: rales and diminished lung sounds; Negative for crackles, rhonchi or wheezes Cardio regular rhythm, S1 normal heart sound, S2 normal heart sound and no murmurs Rate: tachycardic GI soft to palpation, non-tender and non-distended; Negative for hepatosplenomegaly Extremity no clubbing, cyanosis or edema Skin no rashes or lesions noted Neuro no focal motor deficits and no sensory deficits noted Psych Mood & Affect: flat affect Assessment & Plan Assessment/Plan (1) Septic shock: (2) Rhabdomyolysis: QUALIFIERS: Rhabdomyolysis type: non-traumatic Qualified Code(s): M62.82 - Rhabdomyolysis (3) Hypokalemia: (4) UTI (urinary tract infection): QUALIFIERS: Urinary tract infection type: acute cystitis Hematuria presence: without hematuria Qualified Code(s): N30.00 - Acute cystitis without hematuria (5) Aspiration into airway: PLAN: 1. Acute Septic Shock potentially secondary to acute complicated urinary tract infection versus ischemic bowel -Evaluated by general surgery, no surgical indication at this time. Pain has resolved -Had a pansensitive E. coli in her blood, will get started on Rocephin however transitioned to Zosyn and vancomycin secondary to continued leukocytosis. -CTA of the chest showed significant patchy infiltrates hence the broadening 1999 2. Aspiration pneumonitis versus pneumonia with hypercapnic respiratory failure with pulmonary embolism/chronic COPD/LATA -She had an aspiration has been on BiPAP since. He has bilateral pulmonary infiltrates -We will continue to monitor, she does have a history of COPD so may necessitate steroids in addition to her current therapy -Appreciate pulmonology assistance -Currently maintaining oxygen saturations on nasal cannula, will continue to monitor throughout the day in the ICU -Given her worsening oxygen status PCR for Covid was checked and negative, CTA did not demonstrate PE and was started on a heparin drip -Continue with inhalers 3. DM2 VILMA on CKD III, unclear subtype/Hypernatremia/anemia of chronic disease with iron deficiency anemia -Has been some intermittent Lasix for Rales on physical exam. However she does have some hypernatremia -Continue with D5W continue to monitor -Hemoglobin is stable, will continue to monitor -Continue with iron supplementation -Continue sliding scale insulin and make adjustments as necessary 4. HTN/HLD/non-STEMI -Blood pressure stable, will continue to monitor and adjust medications as necessary -Continue to give intermittent Lasix based on respiratory status as indicated -Troponin is continued to rise, cardiology was consulted, echo demonstrated a preserved EF and did not recommend any further work-up secondary to the likelihood of this being due to respiratory failure and septic shock, she can follow-up as an outpatient for further testing once stable and discharged -She was initially started on heparin however she has had a decrease in her platelets therefore this was discontinued and she was transitioned to bivalirudin, HIT panel is pending 5. Anxiety/depression/bipolar disorder/chronic back pain/cervical radiculitis/fibromyalgia -Continue with her home medications including trazodone, Zoloft, Wellbutrin, Abilify, Lamictal. -Lamictal level was normal DVT: SCDs Charges/Coding Visit Charges Inpatient E&M: 93895 Subs Hosp L2
[2021-03-15 18:21] LABS: Bedside Glucose 191 mg/dL (70-110)
[2021-03-15] MEDS: Gabapentin 300 MG Capsule PO (22:02)
[2021-03-15] MEDS: Atorvastatin Calcium 10 MG Tablet PO (22:02)
[2021-03-16] VITALS (35 sets, daily range): BP systolic 83–113; BP diastolic 45–71; PULSE 73–101; RESP 18–34; TEMP 36.2–37; O2SAT 85–99
[2021-03-16] MEDS: Insulin Lispro 100 UNIT/ML INSULN.PEN SC ×4 (00:20→17:04)
[2021-03-16 00:21] LABS: Bedside Glucose 200 mg/dL (70-110)
[2021-03-16] MEDS: Ondansetron 4 MG/2 ML Vial IV (00:32)
[2021-03-16 00:43] LABS: International Normalized Ratio 2.2; Prothrombin Time (Protime)PT. 23.5 SECONDS (11.7-14.9)
[2021-03-16 00:44] LABS: Partial Thromboplast Time 58.5 Seconds (24.1-36.2)
[2021-03-16] MEDS: 0.9% Saline Lock 10 ML Syringe IV ×2 (03:28→22:04)
[2021-03-16 03:49] LABS: Absolute Lymphocyte Count 1.35 X10^3/uL (0.83-4.51); Absolute Neutrophil Count 11.7 X10^3/uL (2.0-7.7); Basophil# 0.02 X10^3/uL; Basophil% 0.1 % (0-1); Hematocrit 33.6 % (37-47); Hemoglobin 10.8 g/dL (12.0-15.0); Lymphocyte # 1.35 X10^3/ul (0.83-4.51); Lymphocyte % 9.9 % (19-41); Mean Corp Hgb Conc 32.1 g/dL (32-36); Mean Corpuscular Hgb 32.9 pg (27.0-32.0); Mean Corpuscular Volume 102.4 fL (81-99); Mean Platelet Vol. 12.4 fl (6.2-12.0); Monocyte# 0.36 X10^3/uL; Monocyte% 2.7 % (0-10); NRBC Flagged by Analyzer 0 % (0-5); Neutrophil # 11.71 X10^3/uL (2.7-7.7); Neutrophil % 86.3 % (47-70); POSITIVE COUNT YES; RBC Distribution Width CV 15.8 % (11.6-14.6); RBC Distribution Width SD 60.2 fl (35.1-43.9); Red Blood Count 3.28 M/mm3 (4.2-5.4); White Blood Count 13.6 K/mm3 (4.4-11.0)
[2021-03-16 03:55] LABS: Differential Indicated SCAN CRITERIA MET; Platelet Count 40 K/mm3 (150-450)
[2021-03-16 04:00] LABS: Anion Gap 6 (5-15); BUN 29 mg/dL (7-18); BUN/Creat Ratio 29.7 RATIO (10-20); Calcium,Total 7.9 mg/dL (8.5-10.1); Chloride 112 mmol/L (98-107); Creatinine, Serum 0.98 mg/dL (0.55-1.02); EST Glomerular Filtration Rate 62 mL/min (>60); Est Glom Filt Rate - Afr Amer 74 mL/min (>60); Estimated Creatinine Clearance 47.68 ml/min; Glucose 200 mg/dL (74-106); Potassium 2.7 mmol/L (3.5-5.1); Sodium Level 148 mmol/L (136-145)
[2021-03-16] MEDS: CHLORHEXIDINE GLUC 2% CLOTH 1 EACH TOWELETTE TOPICAL (05:20)
--- NOTE | 2021-03-16 05:40 | PCM.PN.INT ---
Assessment & Plan Assessment/Plan (1) Aspiration into airway: (2) Acute respiratory failure with hypoxia and hypercapnia: PLAN: RECOMMENDATIONS: 1. Continue to wean supplemental oxygen to maintain saturations at or above 90%. 2. Continue D5W infusion. However, rate will be decreased. Monitor BMP daily. 3. Continue broad-spectrum antimicrobial coverage for now. 4. Continue bivalirudin. 5. Continue scheduled bronchodilator therapy. 6. Ongoing speech therapy evaluation and potential modified barium swallow. 7. Aggressive potassium repletion. IMPRESSIONS: 1. Acute hypoxemic and hypercarbic respiratory failure Improving. Initially felt to be the consequence of a witnessed aspiration event. CTA chest did reveal evidence of a pulmonary embolism along with diffuse bilateral airspace disease, concerning for ARDS. Antibiotics were subsequently broadened to include vancomycin and Zosyn. Follow-up coronavirus PCR testing was negative. The patient does have a known history of obstructive lung disease and chronic tobacco dependency, for which she will be continued on scheduled bronchodilator therapy. Continue to wean supplemental oxygen to maintain saturations at or above 90%. 2. Encephalopathy Improved. Likely metabolic/infectious in etiology. Plan to continue current supportive measures. 3. Thrombocytopenia Clinical concern for potential heparin-induced thrombocytopenia (4 Ts score of 5 = intermediate probability). Will send anti-PF4 heparin antibody immunoassay. The patient's continuous heparin infusion was discontinued. She will be continued on bivalirudin. 4. Hypernatremia/hyperchloremia Improving with free water replacement, which will be continued without change. Continue to monitor BMP closely. 5. Troponin elevation Potentially related to demand ischemia in the setting of #1 and 2. Echocardiogram revealed intact systolic function. 6. Hypokalemia Electrolyte repletion as ordered. Recheck levels in the morning. 7. Chronic iron deficiency anemia/anxiety/depression/bipolar disorder/chronic pain syndrome/diabetes mellitus Complicates care, management, recovery and prognosis. Continue low-dose sliding scale coverage. This note was generated with [facility] dictation software. It may contain incorrect words, spelling, and punctuation that were not noted in checking the note before signing. Subjective Subjective The patient was seen and examined at the bedside this morning. Events from the last 24 hours have been reviewed. The patient is currently afebrile, hemodynamically stable and maintaining appropriate oxygen saturations on Airvo heated high flow with an FiO2 requirement of 45% and flow rate of 50 L/min. The patient is documented to be overall net +6.7 L for the hospital admission. The patient remains thrombocytopenic with a platelet count of 40,000. Sodium has improved to 148 this morning. Potassium is low at 2.7. Creatinine is normal. Objective Data Objective Data The patient's most recent lab work, culture data and imaging studies have all been personally reviewed. Surface echocardiogram from December 2018 revealed stage I diastolic dysfunction with an ejection fraction of 70%. Blood culture dated March 06 was positive for E. coli. Strep and urine Legionella antigens were negative. Respiratory viral panel was negative. Stool for occult blood was positive. Rapid coronavirus antigen testing was negative. Vital Signs: Vital Signs Temp Pulse Resp BP Pulse Ox 98.4 F 80 22 H 99/64 91 03/16/21 04:00 03/16/21 05:00 03/16/21 05:00 03/16/21 05:00 03/16/21 05:00 Oxygen Flow Rate (L/min) 50 Oxygen Delivery Method Airvo Weight: 70.5 kg Body Mass Index (BMI) 29.2 Intake & Output: Intake and Output for Last 24 Hours 03/14/21 03/15/21 03/16/21 23:59 23:59 23:59 Intake Total 3557.5 / 3557.5 4392.20 / 4392.20 1069.84 / 1069.84 Output Total 800 / 950 2100 / 2100 Balance 2757.5 / 2607.5 2292.20 / 2292.20 1069.84 / 1069.84 Medical Nutrition Assessment Dietitian: Nutrition Therapy Diagnosis Start: 03/07/21 11:37 Freq: Status: Active Protocol: Document 03/15/21 09:57 FANNIE (Rec: 03/15/21 09:57 FANNIE [id number]) Nutrition Malnutrition Evidence of Malnutrition Exists No Intake Problem Inadequate Oral Intake Etiology related to acute illness, lethargy Signs/Symptoms as evidenced by d/t concerns w / dysphagia/aspiration, and < 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 Suggest advance diet as tolerated and medically able from transitional to goal diet of cardiac, 1800 calorie controlled diet - consistency per JOURNEYMAN MILLWRIGHT. Lab / Micro Data Attestation: I reviewed the patient's lab results. Result Diagrams: 03/16/21 03:30 03/16/21 03:30 Labs: Laboratory Results - last 24 hr 03/15/21 05:33: POC Glucose 272 H 03/15/21 05:35: Sodium 154 H, Potassium 3.7, Chloride 121 H, Carbon Dioxide 29.0, Anion Gap 4 L, BUN 36 H, Creatinine 1.10 H, Estim Creat Clear Calc 42.48, Est GFR (MDRD) Af Amer 65, Est GFR (MDRD) Non-Af 54 L, BUN/Creatinine Ratio 32.7 H, Glucose 281 H, Calcium 8.2 L, Troponin I High Sens 5398.7 H* 03/15/21 05:35: WBC 16.2 H, RBC 3.65 L, Hgb 11.8 L, Hct 37.3, MCV 102.2 H, MCH 32.3 H, MCHC 31.6 L, RDW Std Deviation 63.5 H, RDW Coeff of Suki 16.8 H, Plt Count 50 L*, MPV 10.9, Immature Gran % (Auto) 1.200 H, Neut % (Auto) 91.4 H, Lymph % (Auto) 5.1 L, [place] % (Auto) 2.2, Eos % (Auto) 0.0, Baso % (Auto) 0.1, Absolute Neuts (auto) 14.8 H, Absolute Lymphs (auto) 0.83, Nucleated RBC % 0.1 03/15/21 05:35: APTT 98.6 H* 03/15/21 10:10: PT 19.0 H, INR 1.7, APTT 49.0 H 03/15/21 12:05: PT 20.7 H, INR 1.9, APTT 48.2 H 03/15/21 13:06: POC Glucose 234 H 03/15/21 18:10: POC Glucose 191 H 03/16/21 00:09: POC Glucose 200 H 03/16/21 00:15: PT 23.5 H, INR 2.2, APTT 58.5 H 03/16/21 03:30: WBC 13.6 H, RBC 3.28 L, Hgb 10.8 L, Hct 33.6 L, MCV 102.4 H, MCH 32.9 H, MCHC 32.1, RDW Std Deviation 60.2 H, RDW Coeff of Suki 15.8 H, Plt Count 40 L*, MPV 12.4 H, Immature Gran % (Auto) 1.000 H, Neut % (Auto) 86.3 H, Lymph % (Auto) 9.9 L, [place] % (Auto) 2.7, Eos % (Auto) 0.0, Baso % (Auto) 0.1, Absolute Neuts (auto) 11.7 H, Absolute Lymphs (auto) 1.35, Nucleated RBC % 0, Diff Path Review December03/16/21 03:30: Sodium 148 H, Potassium 2.7 L*, Chloride 112 H, Carbon Dioxide 30.0, Anion Gap 6, BUN 29 H, Creatinine 0.98, Estim Creat Clear Calc 47.68, Est GFR (MDRD) Af Amer 74, Est GFR (MDRD) Non-Af 62, BUN/Creatinine Ratio 29.7 H, Glucose 200 H, Calcium 7.9 L Micro: Microbiology 03/11/21 17:02 Mucosa - Nasopharyngeal SARS-CoV-2 Antigen (Rapid) - Final 03/06/21 22:08 Blood Culture (Wb) - Anticubital Left Blood Culture - Final Gram negative javid 03/06/21 21:45 Blood Culture (Wb) - Anticubital Right Blood Culture - Final Escherichia coli 03/07/21 06:24 Stool C. difficile DNA Amplification - Final 03/07/21 02:05 Mucosa - Nose Respiratory Panel (PCR) - Final 03/07/21 02:30 Stool Stool Occult Blood (SHAYLA) - Final Occult Blood Positive 03/06/21 22:35 Urine Catheter - Catheter Legionella Antigen - Final 03/06/21 22:35 Urine Catheter - Catheter Streptococcus pneumoniae Antigen (M - Final Physical Exam Const alert General Appearance: cooperative and frail Orientation / Consciousness: awake HEENT normocephalic and head/scalp atraumatic Mouth: dry mucous membranes Eyes PERRL, EOMs intact bilaterally and conjunctivae normal Neck supple General: trachea midline and CVC in place Resp Auscultation: rales, wheezes and diminished lung sounds; Negative for rhonchi Cardio regular rate, regular rhythm, S1 normal heart sound and S2 normal heart sound GI normal to inspection, nondistended, normoactive bowel sounds Extremity no clubbing, cyanosis or edema Skin no rashes or lesions noted Neuro moves all extremities and no focal motor deficits Psych Mood & Affect: flat affect Charges/Coding Visit Charges Inpatient E&M: 86276 Subs Hosp L3
[2021-03-16 06:16] LABS: Bedside Glucose 164 mg/dL (70-110)
[2021-03-16 06:39] LABS: Magnesium 1.7 mg/dL (1.6-2.6)
[2021-03-16] MEDS: Ipratropium/Albuterol Sulfate 3 ML AMPUL.NEB INHALATION ×4 (07:05→19:38)
[2021-03-16] MEDS: lamoTRIgine 100 MG Tablet PO (09:24)
[2021-03-16] MEDS: Cholecalciferol (VIT D3) 25 MCG TABLET (1,000 UNITS) PO (09:24)
[2021-03-16] MEDS: ARIPiprazole 5 MG Tablet PO (09:24)
[2021-03-16] MEDS: buPROPion (XL) 150 MG TABLET.XL PO (09:24)
[2021-03-16] MEDS: Allopurinol 300 MG Tablet PO (09:25)
[2021-03-16] MEDS: Ferrous Sulfate 325 MG Tablet PO (09:25)
[2021-03-16] MEDS: Gabapentin 300 MG Capsule PO ×2 (09:25→22:03)
[2021-03-16] MEDS: Sertraline 100 MG Tablet 150 MG PO (09:25)
--- NOTE | 2021-03-16 10:08 | PN.HOSP_ITS ---
Subjective Subjective Patient states she still feeling poorly. Remains on air Vo at this time. Is not O2 dependent at baseline. She has remained stable in the last 24 hours. Objective Data Objective Data Vital Signs: Vital Signs Temp Pulse Resp BP Pulse Ox 98.4 F 84 24 H 105/61 85 03/16/21 04:00 03/16/21 08:00 03/16/21 08:00 03/16/21 08:00 03/16/21 08:00 Oxygen Flow Rate (L/min) 6 Oxygen Delivery Method Nasal Cannula Weight: 70.5 kg Body Mass Index (BMI) 29.2 Intake & Output: Intake and Output for Last 24 Hours 03/14/21 03/15/21 03/16/21 23:59 23:59 23:59 Intake Total 3557.5 / 3557.5 4392.20 / 4392.20 1818.59 / 1818.59 Output Total 800 / 950 2100 / 2100 850 / 850 Balance 2757.5 / 2607.5 2292.20 / 2292.20 968.59 / 968.59 Medical Nutrition Assessment Dietitian: Nutrition Therapy Diagnosis Start: 03/07/21 11:3 7 Freq: Status: Active Protocol: Document 03/15/21 09:57 FANNIE (Rec: 03/15/21 09:57 FANNIE [id number]) Nutrition Malnutrition Evidence of Malnutrition Exists No Intake Problem Inadequate Oral Intake Etiology related to acute illness, lethargy Signs/Symptoms as evidenced by d/t concerns w / dysphagia/aspiration, and < 50% 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 Lab / Micro Data Result Diagrams: 03/16/21 03:30 03/16/21 03:30 Labs: Laboratory Results - last 24 hr 03/15/21 10:10: PT 19.0 H, INR 1.7, APTT 49.0 H 03/15/21 12:05: PT 20.7 H, INR 1.9, APTT 48.2 H 03/15/21 13:06: POC Glucose 234 H 03/15/21 18:10: POC Glucose 191 H 03/16/21 00:09: POC Glucose 200 H 03/16/21 00:15: PT 23.5 H, INR 2.2, APTT 58.5 H 03/16/21 03:30: WBC 13.6 H, RBC 3.28 L, Hgb 10.8 L, Hct 33.6 L, MCV 102.4 H, MCH 32.9 H, MCHC 32.1, RDW Std Deviation 60.2 H, RDW Coeff of Suki 15.8 H, Plt Count 40 L*, MPV 12.4 H, Immature Gran % (Auto) 1.000 H, Neut % (Auto) 86.3 H, Lymph % (Auto) 9.9 L, [place] % (Auto) 2.7, Eos % (Auto) 0.0, Baso % (Auto) 0.1, Absolute Neuts (auto) 11.7 H, Absolute Lymphs (auto) 1.35, Nucleated RBC % 0, Diff Path Review December03/16/21 03:30: Sodium 148 H, Potassium 2.7 L*, Chloride 112 H, Carbon Dioxide 30.0, Anion Gap 6, BUN 29 H, Creatinine 0.98, Estim Creat Clear Calc 47.68, Est GFR (MDRD) Af Amer 74, Est GFR (MDRD) Non-Af 62, BUN/Creatinine Ratio 29.7 H, Glucose 200 H, Calcium 7.9 L 03/16/21 03:30: Magnesium 1.7 03/16/21 06:08: POC Glucose 164 H Micro: Microbiology 03/11/21 17:02 Mucosa - Nasopharyngeal SARS-CoV-2 Antigen (Rapid) - Final 03/06/21 22:08 Blood Culture (Wb) - Anticubital Left Blood Culture - Final Gram negative javid 03/06/21 21:45 Blood Culture (Wb) - Anticubital Right Blood Culture - Final Escherichia coli 03/07/21 06:24 Stool C. difficile DNA Amplification - Final 03/07/21 02:05 Mucosa - Nose Respiratory Panel (PCR) - Final 03/07/21 02:30 Stool Stool Occult Blood (SHAYLA) - Final Occult Blood Positive 03/06/21 22:35 Urine Catheter - Catheter Legionella Antigen - Final 03/06/21 22:35 Urine Catheter - Catheter Streptococcus pneumoniae Antigen (M - Final Physical Exam Const alert, oriented x3 and no apparent distress Constitutional Narrative: Upper middle-aged white female who appears much older than stated age, lying in bed, currently on air Vo, appears comfortable and nontoxic at this point Exam Limitations: no limitations HEENT head/scalp atraumatic HEENT Narrative: Poor dentition, no thrush Head and Scalp: normocephalic Mouth: dry mucous membranes Eyes PERRL and EOMs intact bilaterally Neck supple Neck Narrative: Trachea midline Resp no retractions and no use of accessory muscles Resp Narrative: Diffusely diminished, few scattered wheezes Auscultation: wheezes; Negative for crackles, rales or rhonchi Cardio regular rate, regular rhythm, S1 normal heart sound, S2 normal heart sound, no murmurs, no rub, no gallops, no clicks and no JVD GI normal to inspection, nondistended, normoactive bowel sounds, soft to palpation, non-tender and non-distended Extremity no clubbing, cyanosis or edema Peripheral Pulses: Yes pulses 2+ throughout Skin no rashes or lesions noted, no wounds, skin turgor normal, no jaundice, no petechiae and no mottling Neuro oriented x3 and moves all extremities Sensorium / Orientation: awake and alert Speech: speech normal Psych Psych Narrative: Affect is flat, mood slightly depressed Assessment & Plan Assessment/Plan (1) Acute respiratory failure with hypoxia and hypercapnia: (2) Aspiration into airway: (3) Metabolic encephalopathy: (4) Hypernatremia: (5) Pulmonary embolism: (6) Thrombocytopenia: PLAN: Acute sepsis secondary to ischemic bowel -Abdominal pain has resolved -Patient was evaluated by general surgery -1 of 2 blood cultures on admission were positive for E. coli -She will likely completed treatment prior to discharge Acute hypoxic and hypercapnic respiratory failure secondary to PE/aspiration/ARDS -CT of the chest revealed PE along with diffuse bilateral airspace disease -Continue Vanco and Zosyn at this time -COVID-19 PCR negative -Continue airVo and wean as possible -Viral respiratory panel was negative -Her cardiogram shows an EF of 60% with no regional wall motion abnormalities -Continue pulmonary toilet -Continue anticoagulation with bivalirudin secondary to suspected HIT -Continue Solu-Medrol 40 mg IV push daily and convert to prednisone p.o. once p atient is more stable Metabolic encephalopathy -Per documentation this has improved -Continue to monitor VILMA on CKD stage IIIa -Baseline serum creatinine appears to be 1-1.2 -VILMA has therefore now resolved with normalization of her serum creatinine to her baseline Acute on chronic anemia -Hemoccult positive -Patient with known chronic iron deficiency -Hemoglobin is relatively stable -Continue to monitor -Continue iron supplementation Acute thrombocytopenia -Drop was precipitous after initiation of heparin/low molecular weight heparin -HIT antibody pending -Continue anticoagulation with bivalirudin -Monitor blood counts--> down to 40,000 today from 50,000 yesterday -Baseline platelet count appears to be 200-300 DM-2 with hyperglycemia -Secondary to steroid use -Continue SSI -Goal blood sugars 140-180 -If remain elevated could consider low-dose Lantus -Blood sugars are also likely up secondary to free water replacement with D5W -Continue to hold home oral agents Troponin elevation -Suspect stress-induced/demand ischemia related to sepsis -Echo shows normal EF with no wall motion abnormality -No further work-up at this time Hypernatremia/hyperchloremia -Improving with free water replacement -Continue current free water dosing -Repeat lab in a.m. Hypokalemia -Replace and repeat in a.m. -Check mag level Anxiety/depression/bipolar disorder -Continue home medications as ordered Baseline COPD -Continue pulmonary toilet -Patient is not O2 dependent at baseline History of gout -Continue allopurinol Diabetic neuropathy -Continue gabapentin Hyperlipidemia -Continue atorvastatin DVT prophylaxis -Patient is on bivalirudin CODE STATUS -Full code Charges/Coding Visit Charges Inpatient E&M: 70632 [facility] Hosp L3
--- NOTE | 2021-03-16 11:07 | ST.MBS ---
Modified Barium Swallow - Patient Information Study Date: 03/16/21 Study Time: 10:00 Direct Billable Minutes: 120 Total Minutes procedure & reportin Diagnosis: Acute respiratory failure with hypoxia and hypercapnia (J96.01) Referring Physician: Heidi Zacarias Reason for Referral: Objectively assess for swallow dysfunction and aspiration risk. Medical History: The patient is a 61 y/o F w/ PMHx: Diabetes mellitus type II, Chronic Anemia/Fe deficiency, Chronic COPD, Fibromyalgia, HTN, HLD, Tobacco use, CKD stage III unclear subtype, Anxiety and Depression, Chronic back pain/Cervical radiculitis who presented to the [facility] ED on 03/06/21 with history of significant weakness, debility, unable to get herself off the floor laying on the floor through over the last ~ 24 hours although EMS notes story is unclear with complaints of generalized fatigue, weakness and occasional dizziness. Patient found eventually per family. She notes her significant fatigue and lethargy has been more pronounced since the day prior. She does note some mild nausea and emesis following meals recently. Initial chest x-ray with no acute cardiopulmonary findings, CT brain with no acute intracranial findings. The patient was admitted for management of septic shock, Rhabdomyolysis, Hypokalemia, and UTI. During hospitalization, patient suspected for possible aspiration event 03/10 w/ chest x-ray 03/11 revealing bilateral infiltrates. Patient had increased respiratory demands, tested negative for COVID, and placed NPO per ST recommendations with plans for completion of MBS study when pt was able to maintain sufficient alertness. Current Diet Ordered: NPO - sips of NTL via straw when fully alert Dentition: Missing Teeth Respiratory Status: Oxygenating on 4L/M nasal cannula - Oxygenating on 8L/min via nasal cannula - Penetration-Aspiration Scale Penetration-Aspiration Scale: OBJECTIVE ASSESSMENT OF SWALLOW FUNCTION (QUANTITATIVE ? PER TRIAL): PENETRATION / ASPIRATION SCALE (DRISCOLL): 1 = does not enter airway 2 = enters airway/above vocal folds/ejected 3 = enters airway/above vocal folds/not ejected 4 = enters airway/contacts vocal folds/ejected 5 = enters airway/contacts vocal folds/not ejected 6 = enters airway/below vocal folds/ejected 7 = enters airway/below vocal folds/not ejected despite effort 8 = enters airway/below vocal folds/no effort VIDEOFLOROSCOPIC SCALE SCORE (DRISCOLL): Grade I = aspiration of material that has penetrated into the laryngeal vestibule, intact cough reflex Grade II = aspiration < 10 % of the bolus, intact cough reflex Grade III = aspiration of < 10 % of the bolus, reduced cough reflex or aspiration of > 10 % of the bolus, intact cough reflex Grade IV = aspiration of > 10 % of the bolus, reduced cough reflex - Penetration-Aspiration Scale Score Thin Liquid via teaspoon Result: 2= enter airway/above vocal folds/ejected Thin Liquid via teaspoon Trial 2 Result: 3= enters airways/above vocal folds/not ejected Thin Liquid via small single sip from cup Result: 3= enters airways/above vocal folds/not ejected [place] Thick Liquid via teaspoon Result: 3= enters airways/above vocal folds/not ejected Thin Liquid via teaspoon Effortful swallow Result: 3= enters airways/above vocal folds/not ejected Honey Thick Liquid via teaspoon Result: 2= enter airway/above vocal folds/ejected Comment: Cued pt for double swallow to attempt clearance of pharyngeal residue from with little improvement noted. Pudding Result: 2= enter airway/above vocal folds/ejected 1/4 Shortbread Cookie Result: 1= does not enter airway Thin Liquid via single sip from straw Result: 3= enters airways/above vocal folds/not ejected - Cued pt for double swallow to attempt clearance of pharyngeal residue from cookie trial with little improvement noted. [place] Thick Liquid via single sip from straw Result: 3= enters airways/above vocal folds/not ejected [place] Thick Liquid via teaspoon Trial 2 Result: 3= enters airways/above vocal folds/not ejected [place] Thick Liquid via teaspoon Effortful swallow Result: 2= enter airway/above vocal folds/ejected [place] Thick Liquid via teaspoon Chin tuck Result: 2= enter airway/above vocal folds/ejected - Oral Phase Labial Seal: Escape beyond interlabial space; no extension beyond elliott border Tongue Control During Bolus Hold: Posterior escape of less than half of bolus Bolus Preparation/Mastication: Disorganized chewing/mashing with solid pieces of bolus unchewed Bolus Transport/Lingual Motion: Slowed tongue motion Oral Residue: Residue collection on oral structures - Pharyngeal Phase Initiation of Pharyngeal Swallow: Bolus head in pyriforms Soft Palate Elevation: Trace column of contrast/air between soft palate and pharyngeal wall Laryngeal Elevation: Partial superior movement thyroid cart/partial apprx aryt-epig petiole Anterior Hyoid Excursion: Partial anterior movement Epiglottic Movement: Partial inversion Laryngeal Vestibule Closure at Height of Swallow: Incomplete; narrow column of air/contrast in laryngeal vestibule Pharyngeal Stripping Wave: Present - diminished Pharyngoesophageal Segment Opening: Parital distension and partial duration; parital obstruction of flow Tongue Base Retraction: Wide column of contrast between tongue base & post. pharyngeal wall Pharyngeal Residue: Collection of residue within or on pharyngeal structures - Esophageal Phase Esophageal Clearance: Complete clearance - Treatment Strategies Effects of treatment strategies attemped:: Double swallow = Little to no impact in clearing pharyngeal residues. Effortful swallow = Little to no impact in decreasing penetration into laryngeal vestibule or clearing pharyngeal residue. Chin tuck = Little to no impact in decreasing penetration into laryngeal vestibule. - Diagnosis/Impression Diagnosis: Moderate-Severe Oropharyngeal Phase Dysphagia (R13.12) Impression: The oral phase is marked by prolonged and disorganized mastication. The patient also presented with deficits in bolus control evidenced by premature posterior spillage of bolus into the pyriforms or laryngeal vestibule upon swallow onset. She had mild-moderate oral residues of both liquid and solid trials. The pharyngeal phase of the swallow is marked by delayed initiation of the pharyngeal swallow. The patient initiated her swallow with bolus head in the pyriforms and even the laryngeal vestibule at times. This delayed onset was primarily noted with trials of thin and nectar thick liquid consistencies. The patient additionally presents with decreased airway closure due to decreased anterior hyoid excursion and laryngeal elevation. The patient also has moderately decreased pharyngeal contraction and tongue base retraction with resulting moderate pharyngeal residues on posterior pharyngeal wall, vallecula, and pyriform sinuses, which put her at increased risk to penetrate contrast into the laryngeal vestibule after the swallow. The patient presented with frequent penetration of various liquid and pudding consistencies into the laryngeal vestibule with all contrast observed to remain above the vocal folds. Difficult to determine if contrast of several of the above liquid trials fully ejected from the laryngeal vestibule as the patient presented with a trace lining of residue from early trials that she was unable to effectively clear with a cued cough. No post prandial aspiration was observed during the study; however, following the study the patient did present with a wet cough and expectorated pink phlegm with barium contrast. - Recommendations Diet: Puree Textures, Thin Liquids Comment: ONLY FEED WHEN FULLY ALERT; MONITOR RESPIRATORY STATUS CLOSELY AND DISCONTINUE DIET IF DECLINE IN STATUS; FREQUENT ORAL CARE. Compensatory Strategies: Small Bites, Small Sips, Liquid by Teaspoon Only - All bites and sips by teaspoon, Slow Rate, Sitting upright, Remain sitting upright for 30 minutes after PO intake Supervision: Total Feed - For all intake Recommend Repeat Modified Barium Swallow: Yes - Would recommend repeat MBS study after 4-6 weeks of skilled dysphagia therapy. Need for Skilled Speech Therapy Services: Yes Comment: Will recommend continued dysphagia therapy services to address moderate-severe deficits in the oropharyngeal function of swallow. Will additionally recommend the patient for oropharyngeal strengthening to improve lingual coordination, hyolaryngeal elevation and excursion, pharyngeal contraction, and tongue base retraction. The patient would benefit from thorough education regarding diet recommendations and recommended compensatory strategies. Education Completed: 1. Described result of evaluation., 7. Pt requires further education on strategies & risks. - Status Active ST Patient: Active - Contact Information [facility] Speech Therapy:: Patti Waddell M.A. [facility] MFT Speech-Language Pathologist [facility] [address] [place] [address] [phone] 03/16/21 12:31
[2021-03-16 12:15] LABS: Bedside Glucose 252 mg/dL (70-110)
[2021-03-16 12:26] LABS: International Normalized Ratio 2.4
[2021-03-16 12:27] LABS: Partial Thromboplast Time 56.3 Seconds (24.1-36.2)
[2021-03-16 17:11] LABS: Bedside Glucose 192 mg/dL (70-110)
[2021-03-16] MEDS: Vancomycin IV 1,000 MG/200 ML BAG 200 MG IV (17:40)
[2021-03-16 18:12] LABS: Vancomycin, Trough Level 19.7 ug/mL (5.0-15.0)
--- NOTE | 2021-03-16 20:28 | PCM.RX.CS ---
Consult Pharmacy has been consulted to manage selected antiobiotic: Vancomycin Type of Consult: Follow-up Labs: Sodium 148 mmol/L (136-145) H 03/16/21 03:30 Potassium 2.7 mmol/L (3.5-5.1) L* 03/16/21 03:30 Chloride 112 mmol/L (98-107) H 03/16/21 03:30 Carbon Dioxide 30.0 mmol/L (21.0-32.0) 03/16/21 03:30 Anion Gap 6 (5-15) 03/16/21 03:30 BUN 29 mg/dL (7-18) H 03/16/21 03:30 Creatinine 0.98 mg/dL (0.55-1.02) 03/16/21 03:30 Est GFR (MDRD) Af Amer 74 mL/min (>60) 03/16/21 03:30 Est GFR (MDRD) Non-Af 62 mL/min (>60) 03/16/21 03:30 BUN/Creatinine Ratio 29.7 RATIO (10-20) H 03/16/21 03:30 Glucose 200 mg/dL (74-106) H 03/16/21 03:30 Vancomycin Trough 19.7 ug/mL (5.0-15.0) H 03/16/21 17:15 Microbiology: Microbiology 03/11/21 17:02 Mucosa - Nasopharyngeal SARS-CoV-2 Antigen (Rapid) - Final 03/06/21 22:08 Blood Culture (Wb) - Anticubital Left Blood Culture - Final Gram negative javdi 03/06/21 21:45 Blood Culture (Wb) - Anticubital Right Blood Culture - Final Escherichia coli 03/07/21 06:24 Stool C. difficile DNA Amplification - Final 03/07/21 02:05 Mucosa - Nose Respiratory Panel (PCR) - Final 03/07/21 02:30 Stool Stool Occult Blood (SHAYLA) - Final Occult Blood Positive 03/06/21 22:35 Urine Catheter - Catheter Legionella Antigen - Final 03/06/21 22:35 Urine Catheter - Catheter Streptococcus pneumoniae Antigen (M - Final Goal Trough: 15-20 mcg/mL Pharmacy Plan for Drug Dosing: VANCOMYCIN LEVEL RECEIVED Current Vancomycin Dose: 1G IV Q24 Number of Doses Received:3 Vancomycin Level: 19.7 Hours Since Last Dose: 23 Renal Function: 0.98 Renal Function Trend: slight improvement Lab/Micro: No new information Vancomycin Plan/Comments: trough was therapeutic at 19.7, trough drawn appropriately. Will continue current dosing of 1g Q24h and check another trough in 2 days to assess dosing needs at that time. Pending Level: 03/18/21 @[id number] Pharmacy Service will continue to monitor and adjust dosing as required.
[2021-03-16] MEDS: Atorvastatin Calcium 10 MG Tablet PO (22:03)
[2021-03-17] VITALS (26 sets, daily range): BP systolic 87–112; BP diastolic 52–65; PULSE 78–92; RESP 18–30; TEMP 36.4–37.7; O2SAT 40–99
[2021-03-17 00:16] LABS: Bedside Glucose 203 mg/dL (70-110)
[2021-03-17] MEDS: Insulin Lispro 100 UNIT/ML INSULN.PEN SC ×7 (00:17→21:28)
[2021-03-17 01:00] LABS: International Normalized Ratio 2.3; Prothrombin Time (Protime)PT. 24.5 SECONDS (11.7-14.9)
[2021-03-17 01:01] LABS: Partial Thromboplast Time 62.5 Seconds (24.1-36.2)
[2021-03-17 04:08] LABS: Absolute Lymphocyte Count 1.03 X10^3/uL (0.83-4.51); Absolute Neutrophil Count 14.6 X10^3/uL (2.0-7.7); Basophil# 0.02 X10^3/uL; Basophil% 0.1 % (0-1); Eosinophil# 0.03 X10^3/uL; Eosinophils% 0.2 % (0-5); Hematocrit 33.7 % (37-47); Hemoglobin 10.7 g/dL (12.0-15.0); Lymphocyte # 1.03 X10^3/ul (0.83-4.51); Lymphocyte % 6.4 % (19-41); Mean Corp Hgb Conc 31.8 g/dL (32-36); Mean Corpuscular Hgb 32.4 pg (27.0-32.0); Mean Corpuscular Volume 102.1 fL (81-99); Mean Platelet Vol. 12.6 fl (6.2-12.0); Monocyte% 1.9 % (0-10); NRBC Flagged by Analyzer 0.1 % (0-5); Neutrophil # 14.64 X10^3/uL (2.7-7.7); Neutrophil % 90.3 % (47-70); POSITIVE COUNT YES; RBC Distribution Width CV 15.5 % (11.6-14.6); RBC Distribution Width SD 58.3 fl (35.1-43.9); White Blood Count 16.2 K/mm3 (4.4-11.0)
[2021-03-17 04:19] LABS: Anion Gap 3 (5-15); BUN 24 mg/dL (7-18); BUN/Creat Ratio 24.4 RATIO (10-20); Chloride 113 mmol/L (98-107); Creatinine, Serum 0.98 mg/dL (0.55-1.02); EST Glomerular Filtration Rate 61 mL/min (>60); Est Glom Filt Rate - Afr Amer 74 mL/min (>60); Estimated Creatinine Clearance 47.68 ml/min; Glucose 207 mg/dL (74-106); Magnesium 1.5 mg/dL (1.6-2.6); Sodium Level 145 mmol/L (136-145)
[2021-03-17 04:21] LABS: Differential Indicated SCAN CRITERIA MET; Platelet Count 42 K/mm3 (150-450)
[2021-03-17 04:53] LABS: Platelet Estimate MKD DEC (ADEQ)
[2021-03-17] MEDS: CHLORHEXIDINE GLUC 2% CLOTH 1 EACH TOWELETTE TOPICAL (05:05)
[2021-03-17 05:22] LABS: Bedside Glucose 243 mg/dL (70-110)
--- NOTE | 2021-03-17 06:40 | PN.CC_ITS ---
Assessment & Plan Assessment/Plan (1) Aspiration into airway: (2) Acute respiratory failure with hypoxia and hypercapnia: PLAN: RECOMMENDATIONS: 1. Stop continuous IV fluids. 2. Continue to wean supplemental oxygen to maintain saturations at or above 90%. 3. Continue antimicrobials. 4. Continue bivalirudin. 5. Continue scheduled bronchodilator therapy. 6. Dietary advancement per speech therapy recommendations. Maintain aspiration precautions. 7. Magnesium repletion as ordered. 8. Consider a trial of diuretic therapy if hemodynamics remain stable. IMPRESSIONS: 1. Acute hypoxemic and hypercarbic respiratory failure Improving. Initially felt to be the consequence of a witnessed aspiration event. CTA chest did reveal evidence of a pulmonary embolism along with diffuse bilateral airspace disease, concerning for ARDS. Antibiotics were subsequently broadened to include vancomycin and Zosyn. Follow-up coronavirus PCR testing was negative. The patient does have a known history of obstructive lung disease and chronic tobacco dependency, for which she will be continued on scheduled bronchodilator therapy. Continue to wean supplemental oxygen to maintain saturations at or above 90%. 2. Encephalopathy Improved. Likely metabolic/infectious in etiology. Plan to continue current supportive measures. 3. Thrombocytopenia Clinical concern for potential heparin-induced thrombocytopenia (4 Ts score of 5 = intermediate probability). Anti-PF4 heparin antibody immunoassay is pending. The patient's continuous heparin infusion was discontinued. She will be cont inued on bivalirudin. We will continue to monitor platelet count daily. No indication for transfusion at this time. 4. Troponin elevation Potentially related to demand ischemia in the setting of #1 and 2. Echocardiogram revealed intact systolic function. 5. Hypomagnesemia Electrolyte repletion as ordered. Recheck levels in the morning. 6. Chronic iron deficiency anemia/anxiety/depression/bipolar disorder/chronic pain syndrome/diabetes mellitus Complicates care, management, recovery and prognosis. Continue low-dose sliding scale coverage. This note was generated with [employer] dictation software. It may contain incorrect words, spelling, and punctuation that were not noted in checking the note before signing. Subjective Subjective The patient was seen and examined at the bedside this morning. Events from the last 24 hours have been reviewed. The patient is currently afebrile, hemodynamically stable and maintaining appropriate oxygen saturations on 4 L/min via nasal cannula. The patient is currently documented to be overall net +8.6 L for the hospital admission. Platelet count is stable this morning at 42,000. Sodium has improved. The patient remains on bivalirudin. The patient's diet was advanced yesterday after completing her swallow evaluation by speech therapy. Objective Data Objective Data The patient's most recent lab work, culture data and imaging studies have all been personally reviewed. Surface echocardiogram from December 2018 revealed stage I diastolic dysfunction with an ejection fraction of 70%. Blood culture dated March 06 was positive for E. coli. Strep and urine Legionella antigens were negative. Respiratory viral panel was negative. Stool for occult blood was positive. Rapid coronavirus antigen testing was negative. Vital Signs: Vital Signs Temp Pulse Resp BP Pulse Ox 99.3 F H 82 22 H 95/59 L 96 03/17/21 00:00 03/17/21 06:00 03/17/21 06:00 03/17/21 06:00 03/17/21 06:00 Oxygen Flow Rate (L/min) 4 Oxygen Delivery Method CPAP Weight: 71.7 kg Body Mass Index (BMI) 29.2 Intake & Output: Intake and Output for Last 24 Hours 03/15/21 03/16/21 03/17/21 23:59 23:59 23:59 Intake Total 4392.20 / 4392.20 3397.74 / 3940.05 1061.06 / 1061.06 Output Total 2100 / 2100 1300 / 1300 600 / 600 Balance 2292.20 / 2292.20 2097.74 / 2640.05 461.06 / 461.06 Medical Nutrition Assessment Dietitian: Nutrition Therapy Diagnosis Start: 03/07/21 11:37 Freq: Status: Active Protocol: Document 03/16/21 09:25 AG (Rec: 03/16/21 10:43 [id number]) Nutrition Malnutrition Evidence of Malnutrition Exists No Intake Problem Inadequate Oral Intake Etiology related to decreased intake w/ acute illness, chewing/ swallowing difficulty, resp. 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 Will provide oral nutrition supplements when able to resume PO diet. Lab / Micro Data Attestation: I reviewed the patient's lab results. Result Diagrams: 03/17/21 03:30 03/17/21 03:30 Labs: Laboratory Results - last 24 hr 03/16/21 12:05: PT 25.0 H, INR 2.4, APTT 56.3 H 03/16/21 12:08: POC Glucose 252 H 03/16/21 17:01: POC Glucose 192 H 03/16/21 17:15: Vancomycin Trough 19.7 H 03/17/21 00:05: PT 24.5 H, INR 2.3, APTT 62.5 H 03/17/21 00:10: POC Glucose 203 H 03/17/21 03:30: WBC 16.2 H, RBC 3.30 L, Hgb 10.7 L, Hct 33.7 L, MCV 102.1 H, MCH 32.4 H, MCHC 31.8 L, RDW Std Deviation 58.3 H, RDW Coeff of Suki 15.5 H, Plt Co unt 42 L*, MPV 12.6 H, Immature Gran % (Auto) 1.100 H, Neut % (Auto) 90.3 H, Lymph % (Auto) 6.4 L, [place] % (Auto) 1.9, Eos % (Auto) 0.2, Baso % (Auto) 0.1, Absolute Neuts (auto) 14.6 H, Absolute Lymphs (auto) 1.03, Nucleated RBC % 0.1, Diff Path Review December, Platelet Estimate MKD 03/17/21 03:30: Sodium 145, Potassium 4.0, Chloride 113 H, Carbon Dioxide 29.0, Anion Gap 3 L, BUN 24 H, Creatinine 0.98, Estim Creat Clear Calc 47.68, Est GFR (MDRD) Af Amer 74, Est GFR (MDRD) Non-Af 61, BUN/Creatinine Ratio 24.4 H, Glucose 207 H, Calcium 8.0 L, Magnesium 1.5 L 03/17/21 05:07: POC Glucose 243 H Micro: Microbiology 03/11/21 17:02 Mucosa - Nasopharyngeal SARS-CoV-2 Antigen (Rapid) - Final 03/06/21 22:08 Blood Culture (Wb) - Anticubital Left Blood Culture - Final Gram negative javid 03/06/21 21:45 Blood Culture (Wb) - Anticubital Right Blood Culture - Final Escherichia coli 03/07/21 06:24 Stool C. difficile DNA Amplification - Final 03/07/21 02:05 Mucosa - Nose Respiratory Panel (PCR) - Final 03/07/21 02:30 Stool Stool Occult Blood (SHAYLA) - Final Occult Blood Positive 03/06/21 22:35 Urine Catheter - Catheter Legionella Antigen - Final 03/06/21 22:35 Urine Catheter - Catheter Streptococcus pneumoniae Antigen (M - Final Physical Exam Const alert General Appearance: cooperative and frail Orientation / Consciousness: awake HEENT normocephalic, head/scalp atraumatic and moist oral mucous membranes Eyes PERRL, EOMs intact bilaterally and conjunctivae normal Neck supple General: trachea midline and CVC in place Resp Auscultation: rales, wheezes and diminished lung sounds; Negative for rhonchi Cardio regular rate, regular rhythm, S1 normal heart sound and S2 normal heart sound GI normal to inspection, nondistended, normoactive bowel sounds Extremity no clubbing, cyanosis or edema Skin no rashes or lesions noted Neuro moves all extremities and no focal motor deficits Psych Mood & Affect: flat affect Charges/Coding Visit Charges Inpatient E&M: 62138 Subs Hosp L2
[2021-03-17] MEDS: Ipratropium/Albuterol Sulfate 3 ML AMPUL.NEB INHALATION ×4 (06:50→19:29)
[2021-03-17 08:34] LABS: BNP,B-Type NATRIURETIC PEPTIDE 189.7 pg/mL (0-100)
[2021-03-17] MEDS: Gabapentin 300 MG Capsule PO ×2 (08:54→12:48)
[2021-03-17] MEDS: Ferrous Sulfate 325 MG Tablet PO (08:54)
[2021-03-17] MEDS: ARIPiprazole 5 MG Tablet PO (08:54)
[2021-03-17] MEDS: buPROPion (XL) 150 MG TABLET.XL PO (08:55)
[2021-03-17] MEDS: Sertraline 100 MG Tablet 150 MG PO (08:55)
[2021-03-17] MEDS: lamoTRIgine 100 MG Tablet PO (08:57)
[2021-03-17] MEDS: Cholecalciferol (VIT D3) 25 MCG TABLET (1,000 UNITS) PO (08:57)
[2021-03-17 09:08] LABS: Pathologist Review Reviewed
--- NOTE | 2021-03-17 10:08 | NURSING ---
report called to [facility] transferred per bed with belongings to room 129, son Brody informed of new room number and visiting hours
[2021-03-17 10:55] LABS: Pathologist Review Reviewed
--- NOTE | 2021-03-17 12:14 | CASEMGMT ---
SW met w/pt in regard to discharge plan. Pt states that she will be able to go home. Pt confirms lives home alone, and nobody is able to help her at home. Pt states has not been to SNF in the past. SW reviewed therapy notes, pt is an assist of two. SW spoke w/pt about this and encouraged her to look at the SNF list to consider rehab, as she may have difficulty managing at home. PT then came in to work w/pt, SW explained we can see how she does today, and check back with her after to see if returning home is realistic. PT did see pt, they are still recommending SNF. SW will speak w/pt again this afternoon about options. MIGUEL Robles
--- NOTE | 2021-03-17 12:37 | PCM.PN.HOSP ---
Subjective Subjective Patient is now oxygenating better and able to maintain oxygen saturations on 4 L of nasal cannula. She is continuing to use CPAP at at bedtime. She is overall improved but still feels very weak. Objective Data Objective Data Vital Signs: Vital Signs Temp Pulse Resp BP Pulse Ox 97.7 F L 87 18 94/65 93 03/17/21 11:42 03/17/21 11:42 03/17/21 11:42 03/17/21 11:42 03/17/21 11:42 Oxygen Flow Rate (L/min) 4 Oxygen Delivery Method Nasal Cannula Weight: 71.7 kg Body Mass Index (BMI) 29.2 Intake & Output: Intake and Output for Last 24 Hours 03/15/21 03/16/21 03/17/21 23:59 23:59 23:59 Intake Total 4392.20 / 4392.20 3397.74 / 3940.05 1543.31 / 1543.31 Output Total 2100 / 2100 1300 / 1300 700 / 700 Balance 2292.20 / 2292.20 2097.74 / 2640.05 843.31 / 843.31 Medical Nutrition Assessment Dietitian: Nutrition Therapy Diagnosis Start: 03/07/21 11:37 Freq: Status: Active Protocol: Document 03/17/21 10:00 AG (Rec: 03/17/21 10:00 [id number]) Nutrition Malnutrition Evidence of Malnutrition Exists No Intake Problem Inadequate Oral Intake Etiology related to decreased intake w/ acute illness, chewing/ swallowing difficulty, resp. 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 Will monitor need for supplements as PO intake is established. Lab / Micro Data Result Diagrams: 03/17/21 03:30 03/17/21 03:30 Labs: Laboratory Results - last 24 hr 03/16/21 03:30: Diff Path Review Reviewed 03/16/21 17:01: POC Glucose 192 H 03/16/21 17:15: Vancomycin Trough 19.7 H 03/17/21 00:05: PT 24.5 H, INR 2.3, APTT 62.5 H 03/17/21 00:10: POC Glucose 203 H 03/17/21 03:30: WBC 16.2 H, RBC 3.30 L, Hgb 10.7 L, Hct 33.7 L, MCV 102.1 H, MCH 32.4 H, MCHC 31.8 L, RDW Std Deviation 58.3 H, RDW Coeff of Suki 15.5 H, Plt Count 42 L*, MPV 12.6 H, Immature Gran % (Auto) 1.100 H, Neut % (Auto) 90.3 H, Lymph % (Auto) 6.4 L, [place] % (Auto) 1.9, Eos % (Auto) 0.2, Baso % (Auto) 0.1, Absolute Neuts (auto) 14.6 H, Absolute Lymphs (auto) 1.03, Nucleated RBC % 0.1, Diff Path Review Reviewed, Platelet Estimate MKD 03/17/21 03:30: Sodium 145, Potassium 4.0, Chloride 113 H, Carbon Dioxide 29.0, Anion Gap 3 L, BUN 24 H, Creatinine 0.98, Estim Creat Clear Calc 47.68, Est GFR (MDRD) Af Amer 74, Est GFR (MDRD) Non-Af 61, BUN/Creatinine Ratio 24.4 H, Glucose 207 H, Calcium 8.0 L, Magnesium 1.5 L 03/17/21 03:30: B-Natriuretic Peptide 189.7 H 03/17/21 05:07: POC Glucose 243 H Micro: Microbiology 03/11/21 17:02 Mucosa - Nasopharyngeal SARS-CoV-2 Antigen (Rapid) - Final 03/06/21 22:08 Blood Culture (Wb) - Anticubital Left Blood Culture - Final Gram negative javid 03/06/21 21:45 Blood Culture (Wb) - Anticubital Right Blood Culture - Final Escherichia coli 03/07/21 06:24 Stool C. difficile DNA Amplification - Final 03/07/21 02:05 Mucosa - Nose Respiratory Panel (PCR) - Final 03/07/21 02:30 Stool Stool Occult Blood (SHAYLA) - Final Occult Blood Positive 03/06/21 22:35 Urine Catheter - Catheter Legionella Antigen - Final 03/06/21 22:35 Urine Catheter - Catheter Streptococcus pneumoniae Antigen (M - Final Physical Exam Const alert and oriented x3 Constitutional Narrative: Upper middle-aged white female lying in bed, appears much older than stated age, appears as if she is feeling better than yesterday although still appears very fatigued Exam Limitations: no limitations HEENT head/scalp atraumatic Head and Scalp: normocephalic Resp normal respiratory effort, no retractions and no use of accessory muscles Resp Narrative: Diffusely diminished but clear Cardio regular rate, regular rhythm, S1 normal heart sound, S2 normal heart sound, no murmurs, no rub, no gallops, no clicks and no JVD GI normal to inspection, nondistended, normoactive bowel sounds, soft to palpation, non-tender and non-distended Extremity full ROM Extremity Narrative: Trace bilateral lower extremity edema, no cyanosis or clubbing Peripheral Pulses: Yes pulses 2+ throughout Skin no rashes or lesions noted, no wounds, skin turgor normal, no jaundice, no petechiae and no mottling Skin Narrative: Right IJ clean and dry Neuro oriented x3 and CN's II-XII intact bilaterally Neuro Narrative: Marked generalized weakness Sensorium / Orientation: awake and alert Psych affect normal Assessment & Plan Assessment/Plan (1) Pulmonary embolism: (2) Acute respiratory failure with hypoxia and hypercapnia: (3) Aspiration into airway: PLAN: Acute sepsis secondary to ischemic bowel -Abdominal pain has resolved -Patient was evaluated by general surgery -1 of 2 blood cultures on admission were positive for E. coli -She will likely completed treatment prior to discharge she is currently on day 10 of antibiotics Acute hypoxic and hypercapnic respiratory failure secondary to PE/aspiration/ARDS -CT of the chest revealed PE along with diffuse bilateral airspace disease -Continue Vanco and Zosyn at this time but after today we will decrease coverage to Unasyn versus Augmentin to cover her aspiration event -COVID-19 PCR negative -Patient has now been weaned to 4 L nasal cannula during the day--> she is not O2 dependent at baseline -CPAP at at bedtime -Viral respiratory panel was negative -Her cardiogram shows an EF of 60% with no regional wall motion abnormalities -Continue pulmonary toilet -Continue anticoagulation with bivalirudin secondary to suspected HIT -Continue Solu-Medrol 40 mg IV push daily and convert to prednisone p.o. once patient is more stable -Likely tomorrow -If blood pressures remain stable will consider diuresis Dysphagia -Continue speech therapy -Suspect related to profound weakness related to acute illness -Current diet is pur?ed with thin liquids and she is a feed with supervision Metabolic encephalopathy -Much improved -Continue to monitor VILMA on CKD stage IIIa -VILMA has resolved Acute on chronic anemia -Hemoccult positive -Patient with known chronic iron deficiency -Hemoglobin is relatively stable despite use of bivalirudin -Continue to monitor -Continue iron supplementation Acute thrombocytopenia -Drop was precipitous after initiation of heparin/low molecular weight heparin -HIT antibody remains pending -Continue anticoagulation with bivalirudin -Platelet count is stabilizing--> 42,000 today -Baseline platelet count appears to be 200-300 DM-2 with hyperglycemia -Secondary to steroid use -Continue SSI -Goal blood sugars 140-180 -If remain elevated could consider low-dose Lantus -Blood sugars are also likely up secondary to free water replacement with D5W -Continue to hold home oral agents NSTEMI -Suspect stress-induced/demand ischemia related to sepsis -Echo shows normal EF with no wall motion abnormality -No further work-up at this time -Patient was evaluated by cardiology -We will refer for outpatient stress once patient clinically improved with regards to her sepsis Hypernatremia/hyperchloremia -Resolved/resolving -D/C IV fluids Hypokalemia -Resolved Hypomagnesemia -Replace with 2 g IV bolus Anxiety/depression/bipolar disorder -Continue home medications as ordered Baseline COPD -Continue pulmonary toilet -Patient is not O2 dependent at baseline History of gout -Continue allopurinol Diabetic neuropathy -Continue gabapentin Hyperlipidemia -Continue atorvastatin DVT prophylaxis -Patient is on bivalirudin CODE STATUS -Full code Charges/Coding Visit Charges Inpatient E&M: 56310 Subs Hosp L2
[2021-03-17] MEDS: Allopurinol 300 MG Tablet PO (12:48)
[2021-03-17] MEDS: predniSONE 20 MG Tablet 40 MG PO (12:51)
[2021-03-17 12:56] LABS: Bedside Glucose 170 mg/dL (70-110)
[2021-03-17 13:10] LABS: International Normalized Ratio 2.3; Partial Thromboplast Time 55.3 Seconds (24.1-36.2); Prothrombin Time (Protime)PT. 24.1 SECONDS (11.7-14.9)
--- NOTE | 2021-03-17 14:30 | CASEMGMT ---
SHRUTHI met with patient again after therapy saw her today. Patient again did not do well with therapy and will not be safe to go home alone. SHRUTHI spoke with patient again. SHRUTHI told her that she is not safe to go home alone as she is too weak right now. SHRUTHI told her it takes 2 people to help her get up and she can only take a few steps. SHRUTHI told her we are not saying she has to go there to live, but she needs to go for a little while to get stronger. SHRUTHI told her then she can go home. She agreed to go somewhere for a little while. SHRUTHI went over the list with her. She was in agreement with [facility] and [facility]. SHRUTHI faxed referral to [facility]. Lauren Chong INDEX CLERK RE
--- NOTE | 2021-03-17 15:02 | NURSING ---
Dr. Zacarias was made aware at 1307 via [employer] of pt's BP and drowsyness. No new orders. Mary Beth from Pharmacy was made aware of the PTT that was drawn at 1240 this afternoon d/t the Angiomax that is infusing. Nicolle informed this nurse that ptt needs redrawn in 12hrs now and no change in rate to the IV Angiomax.
--- NOTE | 2021-03-17 15:35 | CASEMGMT ---
SHRUTHI received a voice mail from [facility] and they can accept patient. [facility] is starting the pre-cert. SHRUTHI will update patient tomorrow. Plan: d/c to [facility] pending pre-cert Lauren GRIMALDO
[2021-03-17 16:50] LABS: Bedside Glucose 221 mg/dL (70-110)
--- NOTE | 2021-03-17 17:36 | CASEMGMT ---
Patient's son and daughter were present in patient's room. SW met with them and patient. SW introduced self and role at [facility]. SW explained that patient is an assist of 2 people and is too weak to go home by herself. SW told them that SW went over the list with her and she was ok with [facility]. SW let them know [facility] can take her once her insurance approves her. They agree with plan and thanked SW for letting them know. Plan: [facility] pending insurance approval. Lauren Chong SALES LEADDevonte GRIMALDO
[2021-03-17] MEDS: Vancomycin IV 1,000 MG/200 ML BAG 200 MG IV (18:02)
[2021-03-17 21:41] LABS: Bedside Glucose 245 mg/dL (70-110)
[2021-03-18] VITALS (16 sets, daily range): BP systolic 100–110; BP diastolic 51–66; PULSE 80–95; RESP 16–25; TEMP 36.2–37; O2SAT 91–100
[2021-03-18] MEDS: Acetaminophen 650 MG Suppository RC (00:03)
[2021-03-18 01:13] LABS: Partial Thromboplast Time 68.7 Seconds (24.1-36.2)
--- NOTE | 2021-03-18 01:17 | NURSING ---
pharmacist, Dewey, alerted at this time that PTT was 68.7 for her angiomax dosaging Dewey told this RN it is okay to keep as is at the rate it is already running
[2021-03-18] MEDS: Ipratropium/Albuterol Sulfate 3 ML AMPUL.NEB INHALATION ×4 (06:48→20:09)
[2021-03-18 06:56] LABS: Bedside Glucose 132 mg/dL (70-110)
[2021-03-18 07:02] LABS: Absolute Lymphocyte Count 0.89 X10^3/uL (0.83-4.51); Absolute Neutrophil Count 13.3 X10^3/uL (2.0-7.7); Basophil# 0.02 X10^3/uL; Basophil% 0.1 % (0-1); Eosinophil# 0.03 X10^3/uL; Eosinophils% 0.2 % (0-5); Hematocrit 33.3 % (37-47); Hemoglobin 10.7 g/dL (12.0-15.0); Lymphocyte # 0.89 X10^3/ul (0.83-4.51); Mean Corp Hgb Conc 32.1 g/dL (32-36); Mean Corpuscular Hgb 32.1 pg (27.0-32.0); Mean Platelet Vol. 11.7 fl (6.2-12.0); Monocyte# 0.41 X10^3/uL; Monocyte% 2.8 % (0-10); NRBC Flagged by Analyzer 0 % (0-5); Neutrophil # 13.25 X10^3/uL (2.7-7.7); Neutrophil % 89.7 % (47-70); POSITIVE COUNT YES; Platelet Count 68 K/mm3 (150-450); RBC Distribution Width CV 14.9 % (11.6-14.6); RBC Distribution Width SD 55.2 fl (35.1-43.9); Red Blood Count 3.33 M/mm3 (4.2-5.4); White Blood Count 14.8 K/mm3 (4.4-11.0)
[2021-03-18 07:30] LABS: Anion Gap 6 (5-15); BUN 20 mg/dL (7-18); BUN/Creat Ratio 21.7 RATIO (10-20); Calcium,Total 8.3 mg/dL (8.5-10.1); Chloride 111 mmol/L (98-107); Creatinine, Serum 0.92 mg/dL (0.55-1.02); EST Glomerular Filtration Rate 66 mL/min (>60); Est Glom Filt Rate - Afr Amer 80 mL/min (>60); Estimated Creatinine Clearance 50.79 ml/min; Glucose 138 mg/dL (74-106); Magnesium 2.3 mg/dL (1.6-2.6); Potassium 3.8 mmol/L (3.5-5.1); Sodium Level 144 mmol/L (136-145)
[2021-03-18] MEDS: lamoTRIgine 100 MG Tablet PO (09:46)
[2021-03-18] MEDS: Sertraline 100 MG Tablet 150 MG PO (09:46)
[2021-03-18] MEDS: Allopurinol 300 MG Tablet PO (09:46)
[2021-03-18] MEDS: Gabapentin 300 MG Capsule PO ×3 (09:46→23:04)
[2021-03-18] MEDS: predniSONE 20 MG Tablet 40 MG PO (09:46)
[2021-03-18] MEDS: Ferrous Sulfate 325 MG Tablet PO (09:46)
[2021-03-18] MEDS: buPROPion (XL) 150 MG TABLET.XL PO (09:46)
[2021-03-18] MEDS: ARIPiprazole 5 MG Tablet PO (09:46)
[2021-03-18] MEDS: Cholecalciferol (VIT D3) 25 MCG TABLET (1,000 UNITS) PO (09:46)
[2021-03-18] MEDS: 0.9% Saline Lock 10 ML Syringe IV ×4 (10:00→23:04)
[2021-03-18] MEDS: Insulin Lispro 100 UNIT/ML INSULN.PEN SC ×2 (12:34→19:38)
[2021-03-18 12:35] LABS: Partial Thromboplast Time 40.2 Seconds (24.1-36.2)
[2021-03-18 12:46] LABS: Bedside Glucose 196 mg/dL (70-110)
--- NOTE | 2021-03-18 14:02 | PN.HOSP_ITS ---
Subjective Subjective Patient states she is feeling better overall. Still sleepy. But when stimulated is appropriately interactive and stays awake. Is now willing to go to a skilled facility for rehab prior to discharge home. She has been weaned to 2 L nasal cannula and we will wean throughout the day. No specific complaints. Objective Data Objective Data Vital Signs: Vital Signs Temp Pulse Resp BP Pulse Ox 97.9 F 92 19 H 103/66 98 03/18/21 09:31 03/18/21 12:00 03/18/21 10:59 03/18/21 09:31 03/18/21 09:31 Oxygen Flow Rate (L/min) 3 Oxygen Delivery Method Nasal Cannula Weight: 71.9 kg Body Mass Index (BMI) 29.2 Intake & Output: Intake and Output for Last 24 Hours 03/16/21 03/17/21 03/18/21 23:59 23:59 23:59 Intake Total 3397.74 / 3940.05 2016.81 / 2016.81 519.75 / 519.75 Output Total 1300 / 1300 1300 / 1300 350 / 350 Balance 2097.74 / 2640.05 716.81 / 716.81 169.75 / 169.75 Medical Nutrition Assessment Dietitian: Nutrition Therapy Diagnosis Start: 03/07/21 11:37 Freq: Status: Active Protocol: Document 03/17/21 10:00 (Rec: 03/17/21 10:00 [id number]) Nutrition Malnutrition Evidence of Malnutrition Exists No Intake Problem Inadequate Oral Intake Etiology related to decreased intake w/ acute illness, chewing/ swallowing difficulty, resp. 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 Will monitor need for supplements as PO intake is established. Lab / Micro Data Result Diagrams: 03/18/21 06:35 03/18/21 06:35 Labs: Laboratory Results - last 24 hr 03/17/21 16:27: POC Glucose 221 H 03/17/21 21:27: POC Glucose 245 H 03/18/21 00:50: APTT 68.7 H 03/18/21 06:02: POC Glucose 132 H 03/18/21 06:35: Sodium 144, Potassium 3.8, Chloride 111 H, Carbon Dioxide 27.0, Anion Gap 6, BUN 20 H, Creatinine 0.92, Estim Creat Clear Calc 50.79, Est GFR (MDRD) Af Amer 80, Est GFR (MDRD) Non-Af 66, BUN/Creatinine Ratio 21.7 H, Glucose 138 H, Calcium 8.3 L, Magnesium 2.3 03/18/21 06:35: WBC 14.8 H, RBC 3.33 L, Hgb 10.7 L, Hct 33.3 L, MCV 100.0 H, MCH 32.1 H, MCHC 32.1, RDW Std Deviation 55.2 H, RDW Coeff of Suki 14.9 H, Plt Count 68 L, MPV 11.7, Immature Gran % (Auto) 1.200 H, Neut % (Auto) 89.7 H, Lymph % (Auto) 6.0 L, Morris % (Auto) 2.8, Eos % (Auto) 0.2, Baso % (Auto) 0.1, Absolute Neuts (auto) 13.3 H, Absolute Lymphs (auto) 0.89, Nucleated RBC % 0 03/18/21 12:05: APTT 40.2 H 03/18/21 12:30: POC Glucose 196 H Micro: Microbiology 03/11/21 17:02 Mucosa - Nasopharyngeal SARS-CoV-2 Antigen (Rapid) - Final 03/06/21 22:08 Blood Culture (Wb) - Anticubital Left Blood Culture - Final Gram negative javid 03/06/21 21:45 Blood Culture (Wb) - Anticubital Right Blood Culture - Final Escherichia coli 03/07/21 06:24 Stool C. difficile DNA Amplification - Final 03/07/21 02:05 Mucosa - Nose Respiratory Panel (PCR) - Final 03/07/21 02:30 Stool Stool Occult Blood (SHAYLA) - Final Occult Blood Positive 03/06/21 22:35 Urine Catheter - Catheter Legionella Antigen - Final 03/06/21 22:35 Urine Catheter - Catheter Streptococcus pneumoniae Antigen (M - Final Physical Exam Const alert, oriented x3 and no apparent distress Constitutional Narrative: Upper middle-aged white female who appears much older than stated age, sitting up in the chair, working with speech therapy, nursing at bedside, nontoxic, no signs of respiratory distress Exam Limitations: no limitations HEENT head/scalp atraumatic HEENT Narrative: Tongue is dry Head and Scalp: normocephalic Mouth: oral and palatal mucosa normal and dry mucous membranes Eyes PERRL, EOMs intact bilaterally and conjunctivae normal Neck no lymphadenopathy, supple and no JVD Neck Narrative: Trachea midline Resp normal respiratory effort, no retractions, no use of accessory muscles and clear to auscultation bilaterally Resp Narrative: Diminished diffusely Auscultation: Negative for crackles, rales, rhonchi or wheezes Cardio regular rate, regular rhythm, S1 normal heart sound, S2 normal heart sound, no murmurs, no rub, no gallops, no clicks and no JVD GI normal to inspection, nondistended, normoactive bowel sounds, soft to palpation, non-tender and non-distended; Negative for hepatosplenomegaly Extremity normal to inspection and no clubbing, cyanosis or edema Peripheral Pulses: Yes pulses 2+ throughout Skin no rashes or lesions noted, no wounds, skin turgor normal, no jaundice, no petechiae and no mottling Neuro oriented x3, CN's II-XII intact bilaterally, moves all extremities and no focal motor deficits Neuro Narrative: Significant generalized weakness Sensorium / Orientation: awake and alert Psych Psych Narrative: Affect is flat Assessment & Plan Assessment/Plan (1) Acute respiratory failure with hypoxia and hypercapnia: (2) Aspiration into airway: (3) Pulmonary embolism: (4) Metabolic encephalopathy: PLAN: Acute sepsis secondary to ischemic bowel -Abdominal pain has resolved -Patient was evaluated by general surgery -1 of 2 blood cultures on admission were positive for E. coli -Antibiotics completed today Acute hypoxic and hypercapnic respiratory failure secondary to PE/aspiratio n/ARDS -CT of the chest revealed PE along with diffuse bilateral airspace disease -Continue Vanco and Zosyn at this time but after today we will decrease coverage to Unasyn versus Augmentin to cover her aspiration event -COVID-19 PCR negative -Patient has now been weaned to 3 L nasal cannula during the day--> she is not O2 dependent at baseline -SpO2 is 98% on 3 L -Continue CPAP at at bedtime -Viral respiratory panel was negative -Her cardiogram shows an EF of 60% with no regional wall motion abnormalities -Continue pulmonary toilet -Continue anticoagulation with bivalirudin secondary to suspected HIT -Wean prednisone slowly -If blood pressures remain stable will consider diuresis Dysphagia -Continue speech therapy -Suspect related to profound weakness related to acute illness -Current diet is pur?ed with thin liquids and she is a feed with supervision Metabolic encephalopathy -Much improved -Still sleepy but mentation has improved significantly -Continue to monitor VILMA on CKD stage IIIa -VILMA has resolved Acute on chronic anemia -Hemoccult positive -Patient with known chronic iron deficiency -Hemoglobin is relatively stable despite use of bivalirudin -Continue to monitor -Continue iron supplementation Acute thrombocytopenia -Drop was precipitous after initiation of heparin/low molecular weight heparin -HIT antibody remains pending -Discontinue bivalirudin and convert to Eliquis -Platelet count is now trending up at 68,000 today -Baseline platelet count appears to be 200-300 DM-2 with hyperglycemia -Secondary to steroid use -Continue SSI -Goal blood sugars 140-180 -Blood sugars are improving -Continue to hold home oral agents NSTEMI -Suspect stress-induced/demand ischemia related to sepsis -Echo shows normal EF with no wall motion abnormality -No further work-up at this time -Patient was evaluated by cardiology -We will refer for outpatient stress once patient clinically improved with regards to her sepsis Hypernatremia/hyperchloremia -Resolved Hypomagnesemia -Resolved Anxiety/depression/bipolar disorder -Continue home medications as ordered Baseline COPD -Continue pulmonary toilet -Patient is not O2 dependent at baseline History of gout -Continue allopurinol Diabetic neuropathy -Continue gabapentin Hyperlipidemia -Continue atorvastatin DVT prophylaxis -Patient is on bivalirudin CODE STATUS -Full code Charges/Coding Visit Charges Inpatient E&M: 03102 [facility] H[facility] L3
--- NOTE | 2021-03-18 15:39 | CASEMGMT ---
SHRUTHI called [facility]. Winter is out of the office, but principal secretary said she will page Winter and have her call SHRUTHI. Plan: [facility] pending pre-cert. Green sheet on chart pending pre-cert. Lauren GRIMALDO
[2021-03-18] MEDS: APIXABAN 5 MG TABLET 10 MG PO ×2 (15:41→23:03)
[2021-03-18 18:21] LABS: Bedside Glucose 236 mg/dL (70-110)
[2021-03-18 18:55] LABS: Vancomycin, Trough Level 18.7 ug/mL (5.0-15.0)
[2021-03-18] MEDS: Atorvastatin Calcium 10 MG Tablet PO (23:04)
[2021-03-19] VITALS (15 sets, daily range): BP systolic 111–123; BP diastolic 66–70; PULSE 80–97; RESP 15–23; TEMP 36.1–37.1; O2SAT 92–100
[2021-03-19] MEDS: Insulin Lispro 100 UNIT/ML INSULN.PEN SC ×3 (00:19→18:11)
[2021-03-19 00:30] LABS: Bedside Glucose 215 mg/dL (70-110)
--- NOTE | 2021-03-19 00:50 | NURSING ---
PT AWAKE IN BED, DENIES C/O. SIPS OF WATER GIVEN. CRUSHED HS MEDS IN APPLESAUCE. PT THIERRY WELL. VSS.
[2021-03-19 05:28] LABS: Anion Gap 4 (5-15); BUN 19 mg/dL (7-18); BUN/Creat Ratio 23.1 RATIO (10-20); Calcium,Total 8.1 mg/dL (8.5-10.1); Chloride 112 mmol/L (98-107); Creatinine, Serum 0.82 mg/dL (0.55-1.02); EST Glomerular Filtration Rate 75 mL/min (>60); Est Glom Filt Rate - Afr Amer 91 mL/min (>60); Estimated Creatinine Clearance 56.98 ml/min; Glucose 157 mg/dL (74-106); Potassium 3.9 mmol/L (3.5-5.1); Sodium Level 145 mmol/L (136-145)
[2021-03-19 06:55] LABS: Bedside Glucose 136 mg/dL (70-110)
[2021-03-19] MEDS: Ipratropium/Albuterol Sulfate 3 ML AMPUL.NEB INHALATION ×3 (07:28→19:04)
--- NOTE | 2021-03-19 08:15 | PN.CC_ITS ---
Assessment & Plan Assessment/Plan (1) Aspiration into airway: (2) Acute respiratory failure with hypoxia and hypercapnia: PLAN: RECOMMENDATIONS: 1. Continue to wean supplemental oxygen to maintain saturations at or above 90%. 2. Continue antimicrobials to complete treatment course. 3. Continue Eliquis. 4. Continue scheduled bronchodilator therapy. 5. Dietary advancement per speech therapy recommendations. Maintain aspiration precautions. 6. Diuretic challenge today. IMPRESSIONS: 1. Acute hypoxemic and hypercarbic respiratory failure Improving. Initially felt to be the consequence of a witnessed aspiration event. CTA chest did reveal evidence of a pulmonary embolism along with diffuse bilateral airspace disease, concerning for ARDS. Antibiotics were subsequently broadened to include Zosyn. Follow-up coronavirus PCR testing was negative. The patient does have a known history of obstructive lung disease and chronic tobacco dependency, for which she will be continued on scheduled bronchodilator therapy. Continue to wean supplemental oxygen to maintain saturations at or above 90%. 2. Encephalopathy Improved. Likely metabolic/infectious in etiology. Plan to continue current supportive measures. 3. Thrombocytopenia Clinical concern for potential heparin-induced thrombocytopenia (4 Ts score of 5 = intermediate probability). Anti-PF4 heparin antibody immunoassay is pending. The patient's continuous heparin infusion was discontinued. The patient was initially maintained on bivalirudin and after improvement in her platelet count was transitioned to Eliquis. 4. Troponin elevation Potentially related to demand ischemia in the setting of #1 and 2. Echocardiogram revealed intact systolic function. 5. Chronic iron deficiency anemia/anxiety/depression/bipolar disorder/chronic pain syndrome/diabetes mellitus Complicates care, management, recovery and prognosis. Continue low-dose sliding scale coverage. This note was generated with [employer] dictation software. It may contain incorrect words, spelling, and punctuation that were not noted in checking the note before signing. Subjective Subjective The patient was seen and examined at the bedside this morning. Events from the last 24 hours have been reviewed. The patient is currently afebrile, hemodynamically stable and maintaining appropriate oxygen saturations on BIPAP. Prior to being placed on overnight BIPAP support, she was maintaining a ppropriate oxygen saturations on 3L/min. She is currently documented to be overall net positive 9L for the hospital admission. The patient was transitioned from bivalirudin to Eliquis yesterday. Objective Data Objective Data The patient's most recent lab work, culture data and imaging studies have all been personally reviewed. Surface echocardiogram from December 2018 revealed stage I diastolic dysfunction with an ejection fraction of 70%. Blood culture dated March 06 was positive for E. coli. Strep and urine Legionella antigens were negative. Respiratory viral panel was negative. Stool for occult blood was positive. Rapid coronavirus antigen testing was negative. Vital Signs: Vital Signs Temp Pulse Resp BP Pulse Ox 98.7 F 80 23 H 123/70 H 92 03/19/21 03:56 03/19/21 04:59 03/19/21 04:59 03/19/21 03:56 03/19/21 04:59 Oxygen Flow Rate (L/min) 3 Oxygen Delivery Method Bi-pap Weight: 71.8 kg Body Mass Index (BMI) 29.2 Intake & Output: Intake and Output for Last 24 Hours 03/17/21 03/18/21 03/19/21 23:59 23:59 23:59 Intake Total 2016.81 / 2015.81 968.69 / 1208.69 340 / 340 Output Total 1300 / 1300 550 / 850 600 / 600 Balance 716.81 / 716.81 418.69 / 358.69 -260 / -260 Medical Nutrition Assessment Dietitian: Nutrition Therapy Diagnosis Start: 03/07/21 11:37 Freq: Status: Active Protocol: Document 03/17/21 10:00 (Rec: 03/17/21 10:00 [id number]) Nutrition Malnutrition Evidence of Malnutrition Exists No Intake Problem Inadequate Oral Intake Etiology related to decreased intake w/ acute illness, chewing/ swallowing difficulty, resp. 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 Will monitor need for supplements as PO intake is established. Lab / Micro Data Attestation: I reviewed the patient's lab results. Result Diagrams: 03/18/21 06:35 03/19/21 05:01 Labs: Laboratory Results - last 24 hr 03/18/21 12:05: APTT 40.2 H 03/18/21 12:30: POC Glucose 196 H 03/18/21 17:24: POC Glucose 236 H 03/18/21 17:35: Vancomycin Trough 18.7 H 03/19/21 00:16: POC Glucose 215 H 03/19/21 05:01: Sodium 145, Potassium 3.9, Chloride 112 H, Carbon Dioxide 29.0, Anion Gap 4 L, BUN 19 H, Creatinine 0.82, Estim Creat Clear Calc 56.98, Est GFR (MDRD) Af Amer 91, Est GFR (MDRD) Non-Af 75, BUN/Creatinine Ratio 23.1 H, Glucose 157 H, Calcium 8.1 L 03/19/21 06:35: POC Glucose 136 H Micro: Microbiology 03/11/21 17:02 Mucosa - Nasopharyngeal SARS-CoV-2 Antigen (Rapid) - Final 03/06/21 22:08 Blood Culture (Wb) - Anticubital Left Blood Culture - Final Gram negative javid 03/06/21 21:45 Blood Culture (Wb) - Anticubital Right Blood Culture - Final Escherichia coli 03/07/21 06:24 Stool C. difficile DNA Amplification - Final 03/07/21 02:05 Mucosa - Nose Respiratory Panel (PCR) - Final 03/07/21 02:30 Stool Stool Occult Blood (SHAYLA) - Final Occult Blood Positive 03/06/21 22:35 Urine Catheter - Catheter Legionella Antigen - Final 03/06/21 22:35 Urine Catheter - Catheter Streptococcus pneumoniae Antigen (M - Final Physical Exam Const alert General Appearance: cooperative and frail Orientation / Consciousness: awake HEENT normocephalic, head/scalp atraumatic and moist oral mucous membranes Eyes PERRL, EOMs intact bilaterally and conjunctivae normal Neck supple General: trachea midline Resp normal respiratory effort Auscultation: diminished lung sounds; Negative for rales, rhonchi or wheezes Cardio regular rate, regular rhythm, S1 normal heart sound and S2 normal heart sound GI normal to inspection, nondistended, normoactive bowel sounds Extremity no clubbing, cyanosis or edema Skin no rashes or lesions noted Neuro moves all extremities and no focal motor deficits Psych Mood & Affect: flat affect Charges/Coding Visit Charges Inpatient E&M: 33917 [facility] Hosp L2
[2021-03-19] MEDS: Gabapentin 300 MG Capsule PO ×2 (09:31→20:24)
[2021-03-19] MEDS: predniSONE 20 MG Tablet 40 MG PO (09:31)
[2021-03-19] MEDS: lamoTRIgine 100 MG Tablet PO (09:32)
[2021-03-19] MEDS: Ferrous Sulfate 325 MG Tablet PO (09:32)
[2021-03-19] MEDS: Cholecalciferol (VIT D3) 25 MCG TABLET (1,000 UNITS) PO (09:33)
[2021-03-19] MEDS: Furosemide 40 MG/4 ML Vial IV (09:33)
[2021-03-19] MEDS: buPROPion (XL) 150 MG TABLET.XL PO (09:33)
[2021-03-19] MEDS: ARIPiprazole 5 MG Tablet PO (09:33)
[2021-03-19] MEDS: Allopurinol 300 MG Tablet PO (09:34)
[2021-03-19] MEDS: Sertraline 100 MG Tablet 150 MG PO (09:34)
[2021-03-19] MEDS: APIXABAN 5 MG TABLET 10 MG PO ×2 (09:35→20:24)
[2021-03-19 12:51] LABS: Bedside Glucose 213 mg/dL (70-110)
--- NOTE | 2021-03-19 13:32 | PCM.DC.SUM ---
Providers Date of Admission: 03/07/21 Primary Care Physician: Dr. 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 UTI source EMERGENT Consult: No Notified: Yes Date Notified: 03/06/21 Time Notified: 23:53 Method of Notification: cortext 03/07/21 03:27 Consult: General Surgery Routine Consulting Provider: Jason Clemente Reason for Consult: Septic shock, GI bleed, ? intra-abdominal source EMERGENT Consult: Yes MD Notified: Yes Date Notified: 03/07/21 Time Notified: 03:27 Method of Notification: cortext back and forth 03/14/21 15:51 Consult: Cardiology Routine Consulting Provider: Megan Patterson Reason for Consult: Trop>[id number] EMERGENT Consult: No Notified: Yes Date Notified: 03/14/21 Time Notified: 16:08 Method of Notification: Verbal Reason For Visit: SEPTIC SHOCK, ? UTI SOURCE, HYPOKALEMIA Diagnosis Discharge Diagnosis (1) Aspiration into airway: Status: Acute Code(s): T17.908A - Unspecified foreign body in respiratory tract, part unspecified causing other injury, initial encounter (2) Acute respiratory failure with hypoxia and hypercapnia: Status: Acute Code(s): J96.01 - Acute respiratory failure with hypoxia; J96.02 - Acute respiratory failure with hypercapnia Medications at Discharge Home Medications simvastatin 20 mg PO QHS 10/08/15 trazodone 200 mg PO QHS 08/23/16 linagliptin 5 mg PO DAILY 10/15/17 furosemide 20 mg tablet 20 mg PO 1200 tab 11/15/17 gabapentin 300 mg PO 0800,1200 11/28/17 gabapentin 600 mg PO QHS 04/20/18 allopurinol 300 mg PO DAILY 07/30/18 Potassium Chloride 2 tablet PO BID 07/09/19 aripiprazole 5 mg PO DAILY 07/09/19 bupropion HCl (smoking deter) 150 mg PO DAILY 07/09/19 cholecalciferol (vitamin D3) 1,000 unit PO DAILY 07/09/19 docusate sodium 100 mg PO PRN PRN 07/09/19 ferrous sulfate 325 mg PO DAILY 07/09/19 furosemide 40 mg PO 0800 07/09/19 indapamide 1.25 mg PO MOFR 07/09/19 lamotrigine 100 mg PO DAILY 07/09/19 sertraline 150 mg PO DAILY 07/09/19 umeclidinium 62.5 mcg-vilanterol 25 mcg/actuation powdr for inhalation 1 inh INHALATION DAILY #60 ea 12/17/19 aripiprazole mg 03/06/21 acetaminophen [Tylenol] 650 mg PO Q4H PRN PRN #30 tab 03/19/21 albuterol sulfate 2.5 mg INHALATION Q2H PRN PRN #3 ml 03/19/21 apixaban [Eliquis] 5 mg PO BID #0 tab 03/19/21 apixaban [Eliquis] 10 mg PO BID #0 tab 03/19/21 prednisone 40 mg PO BREAKFAST #0 tab 03/19/21 saliva substitute combo no.9 [Biotene Dry Mouth Oral Rinse] 15 ml MUCOUS MEMBRANE 5X/DAY PRN #0 ml 03/19/21 sennosides-docusate sodium [Stool Softener-Stimulant Laxat] 2 tab PO BID PRN PRN #0 tab 03/19/21 Hospital Course Procedures 2-D Echocardiogram, Central line placement (Right internal jugular), EKG and - (CTA chest/MBS) Summary of Care Provided Minutes Spent on Discharge: 48 Hospital Course: Mrs. Fisher is a 61-year-old white female who presented to the emergency department at [facility] on 03/06/2021 with lethargy, fatigue, and weakness. She was found on the floor by family and it was suspected she was there for approximately 24 hours. On presentation to the emergency department they reported that her fatigue and lethargy had been more pronounced the day prior to admission. She noted some mild nausea and emesis following meals. She denied any abdominal pain, constipation, or diarrhea however. She denied fever and chills and was evaluated by EMS the day prior to admission but declined transfer at that time. Upon presentation she was hypotensive with a blood pressure of 80/53 her UA was suspicious for a UTI. Blood cultures and urine cultures were obtained at that time and she was placed in the intensive care unit with septic shock. She was volume resuscitated but did require pressors for short period of time. Her blood cultures grew gram-negative rods and the source was suspected to be intra-abdominal as she developed Hemoccult positive stools. She had significant VILMA which resolved. She had mild rhabdomyolysis which resolved prior to discharge. A CT of her abdomen pelvis was performed and suggested ischemic colitis. She was evaluated by general surgery for her Hemoccult positive stools and her colitis but is felt that she would improve with conservative management, which she did, and any intervention was deferred at that time. Right internal jugular vein central venous catheter was placed on 03/07/2021. She had been improving but developed acute respiratory failure with hypoxia and hypercapnia and required noninvasive ventilation. A CTA of her chest was performed and and showed pulmonary emboli for which she was started on a heparin drip. While on heparin drip she got progressively thrombocytopenic and there was suspicion that she developed HIT therefore she was taken off heparin products and placed on bivalirudin for anticoagulation and a HIT antibody was sent. The HIT antibody was still pending on discharge. If this antibody is positive I would recommend placing heparin and heparin products on her allergy list. Her platelet count was trending up upon discharge. She was converted to Eliquis. While on anticoagulation she demonstrated stable hemoglobin and had no signs of further GI bleed. I suspect her GI bleed was related to ischemic colitis. Her blood culture resulted positive for E. coli and she was treated with a complete course of IV antibiotics during her hospitalization. She also had an aspiration event and was treated with antibiotics for this as well. She was evaluated by speech therapy and placed on a modified diet with instruction for continued speech therapy at discharge. During her hospitalization she was found to have troponin elevation. Cardiology did evaluate the patient and felt that this was likely a type II NSTEMI related to her respiratory failure and septic shock. An echocardiogram was performed and showed no wall motion abnormality and preserved ejection fraction. She has been referred to cardiology as an outpatient for stress test once her acute medical issues have resolved. She was able to be transferred out of the ICU on 03/17/2021 where she progressed well on the general medical floor. She initially was resistant to [facility] facility transfer upon discharge but did poorly with therapy and was agreeable for short-term placement for continued rehab prior to discharge home. She is currently on Eliquis 10 mg twice daily and this will continue until 03/25/2021. She will then decrease to 5 mg twice daily indefinitely at that point. Her home Lasix was restarted upon discharge. She is to follow-up with her primary care physician in 1 week, she was given referral for pulmonology and cardiology to follow-up within the next month. She was discharged in stable condition. Discharge diagnoses: Septic shock secondary to E. coli bacteremia Ischemic bowel Acute hypoxic and hypercapnic respiratory failure Aspiration pneumonia ARDS Pulmonary embolism Dysphagia Metabolic encephalopathy VILMA CKD on stage IIIa Acute on chronic anemia Acute thrombocytopenia-HIT suspected DM-2 NSTEMI Hypernatremia Hyperchloremia Hypomagnesemia Anxiety Depression Bipolar disorder COPD Gout Diabetic neuropathy Hyperlipidemia Hypertension Physical Exam Const alert, oriented x3 and no apparent distress Constitutional Narrative: Upper middle-aged white female sitting up in bed, appears much older than stated age, currently on 2 to 3 L nasal cannula, nontoxic, appears comfortable General Appearance: cooperative, comfortable, well kempt and well developed Orientation / Consciousness: awake HEENT normocephalic, head/scalp atraumatic, hearing grossly normal bilaterally and moist oral mucous membranes Mouth: oral and palatal mucosa normal Eyes PERRL, EOMs intact bilaterally and conjunctivae normal Neck no lymphadenopathy, supple and no JVD Neck Narrative: Trachea midline Resp normal respiratory effort, no retractions, no use of accessory muscles and clear to auscultation bilaterally Auscultation: Negative for crackles, rales, rhonchi or wheezes Cardio regular rate, regular rhythm, S1 normal heart sound, S2 normal heart sound, no murmurs, no rub, no gallops, no clicks and no JVD GI normal to inspection, nondistended, normoactive bowel sounds, soft to palpation, non-tender and non-distended; Negative for hepatosplenomegaly Extremity Extremity Narrative: 1-2+ bilateral upper extremity pitting edema, 1+ bilateral lower extremity pitting edema General Extremity: edema Skin no rashes or lesions noted, no wounds, skin turgor normal and no jaundice Skin Narrative: Skin is extremely sapp-patient admits to marked sun exposure Neuro oriented x3, CN's II-XII intact bilaterally, moves all extremities and no focal motor deficits Neuro Narrative: Responds appropriately but somewhat slow to respond at times, severe generalized weakness Sensorium / Orientation: awake, alert, oriented to person, oriented to place and oriented to time Speech: speech normal Motor Exam: strength 5/5 throughout Psych affect normal Medical Records Data Medical Nutrition Assessment Dietitian: Nutrition Therapy Diagnosis Start: 03/07/21 11:37 Freq: Status: Active Protocol: Document 03/17/21 10:00 AG (Rec: 03/17/21 10:00 [id number]) Nutrition Malnutrition Evidence of Malnutrition Exists No Intake Problem Inadequate Oral Intake Etiology related to decreased intake w/ acute illness, chewing/ swallowing difficulty, resp. 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 Will monitor need for supplements as PO intake is established. Weight / BMI Weight Weight: 71.8 kg Body Mass Index (BMI) 29.2 ABG / Lab / Microbiology Data Result Diagrams: 03/18/21 06:35 03/19/21 05:01 Laboratory: Laboratory Results - last 24 hr 03/18/21 17:24: POC Glucose 236 H 03/18/21 17:35: Vancomycin Trough 18.7 H 03/19/21 00:16: POC Glucose 215 H 03/19/21 05:01: Sodium 145, Potassium 3.9, Chloride 112 H, Carbon Dioxide 29.0, Anion Gap 4 L, BUN 19 H, Creatinine 0.82, Estim Creat Clear Calc 56.98, Est GFR (MDRD) Af Amer 91, Est GFR (MDRD) Non-Af 75, BUN/Creatinine Ratio 23.1 H, Glucose 157 H, Calcium 8.1 L 03/19/21 06:35: POC Glucose 136 H 03/19/21 12:38: POC Glucose 213 H Microbiology: Microbiology 03/11/21 17:02 Mucosa - Nasopharyngeal SARS-CoV-2 Antigen (Rapid) - Final 03/06/21 22:08 Blood Culture (Wb) - Anticubital Left Blood Culture - Final Gram negative javid 03/06/21 21:45 Blood Culture (Wb) - Anticubital Right Blood Culture - Final Escherichia coli 03/07/21 06:24 Stool C. difficile DNA Amplification - Final 03/07/21 02:05 Mucosa - Nose Respiratory Panel (PCR) - Final 03/07/21 02:30 Stool Stool Occult Blood (SHAYLA) - Final Occult Blood Positive 03/06/21 22:35 Urine Catheter - Catheter Legionella Antigen - Final 03/06/21 22:35 Urine Catheter - Catheter Streptococcus pneumoniae Antigen (M - Final D/C Instructions Discharge Diet: Low fat / Low cholesterol and 1800 Calorie Control Diet Meaningful Use Info Meaningful Use Diagnoses (Choose all that apply): None applicable Discharge Plan Admission Admit Date/Time: 03/07/21 00:00 Primary Reason for Your Visit: septic shock Attending Provider: Heidi Zacarias Primary Care Provider: Hua Mosher Consulting Providers: Megan Patterson ; Jason Clemente ; Shawn Briggs Discharge Orders/Prescriptions Prescriptions: New sennosides-docusate sodium [Stool Softener-Stimulant Laxat] 8.6-50 mg Tablet 2 tab PO BID PRN PRN (Reason: Constipation) Qty: 0 RF: 0 Biotene Dry Mouth Oral Rinse Mouthwash 15 ml mucous membrane 5X/DAY PRN (Reason: Dry Mouth) Qty: 0 RF: 0 acetaminophen [Tylenol] 325 mg Tablet 650 mg PO Q4H PRN PRN (Reason: Fever, pain 1-10/10) Qty: 30 RF: 0 albuterol sulfate 2.5 mg /3 mL (0.083 %) Solution For Nebulization 2.5 mg inhalation Q2H PRN PRN (Reason: Dyspnea, wheezing) Qty: 3 RF: 0 prednisone 20 mg Tablet 40 mg PO BREAKFAST Qty: 0 RF: 0 Eliquis 5 mg Tablet 10 mg PO BID Qty: 0 RF: 0 Eliquis 5 mg Tablet 5 mg PO BID Qty: 0 RF: 0 Continued furosemide 20 mg tablet 20 mg PO 1200 RF: 0 umeclidinium-vilanterol 62.5-25 mcg/actuation blister with device 1 inh INHALATION DAILY Qty: 60 RF: 6 simvastatin 20 MG tablet 20 mg PO QHS RF: 0 trazodone 100 MG tablet 200 mg PO QHS RF: 0 linagliptin 5 MG tablet 5 mg PO DAILY RF: 0 gabapentin 300 MG capsule 300 mg PO 0800,1200 RF: 0 gabapentin 600 MG tablet 600 mg PO QHS RF: 0 allopurinol 100 MG tablet 300 mg PO DAILY RF: 0 furosemide 40 MG tablet 40 mg PO 0800 RF: 0 sertraline 100 MG tablet 150 mg PO DAILY RF: 0 ferrous sulfate 325 MG tablet 325 mg PO DAILY RF: 0 indapamide 1.25 MG tablet 1.25 mg PO MOFR RF: 0 lamotrigine 100 MG tablet 100 mg PO DAILY RF: 0 aripiprazole 5 MG tablet 5 mg PO DAILY RF: 0 cholecalciferol (vitamin D3) 1,000 UNIT tablet 1,000 unit PO DAILY RF: 0 bupropion HCl (smoking deter) 150 MG tablet extended release 12 hr 150 mg PO DAILY RF: 0 Potassium Chloride 20 MEQ Tab.Er.Prt 2 tablet PO BID RF: 0 docusate sodium 100 MG capsule 100 mg PO PRN PRN (Reason: Constipation) RF: 0 aripiprazole 10 mg tablet RF: 0 Discontinued albuterol sulfate 90 mcg/actuation HFA aerosol inhaler 2 puff INHALATION Q6H PRN (Reason: shortness of breath) Qty: 1 RF: 6 Referrals / Follow Up: Hua Mosher MD [Primary Care Provider] - In 1 Week Shawn Briggs DO [STAFF PHYSICIAN] - Within 1 Month Dewey Ch NP, AUTOMATIC LINE SET UP MECHANIC-C [Nurse Practitioner] - Within 1 Month (for stress test) Disposition Disposition (needs filled in before D/C Order can be placed): [facility] Facility Charges/Coding Visit Charges Inpatient E&M: 04805 SNF Disch >30 Min
[2021-03-19 18:06] LABS: Bedside Glucose 226 mg/dL (70-110)
[2021-03-19] MEDS: Atorvastatin Calcium 10 MG Tablet PO (20:24)
[2021-03-19] MEDS: 0.9% Saline Lock 10 ML Syringe IV (20:33)
[2021-03-20] VITALS (14 sets, daily range): BP systolic 98–115; BP diastolic 59–68; PULSE 74–89; RESP 16–24; TEMP 36.2–36.6; O2SAT 94–99
[2021-03-20] MEDS: Insulin Lispro 100 UNIT/ML INSULN.PEN SC ×4 (00:07→23:08)
[2021-03-20 00:15] LABS: Bedside Glucose 191 mg/dL (70-110)
[2021-03-20 06:30] LABS: Bedside Glucose 129 mg/dL (70-110)
[2021-03-20 06:35] LABS: Absolute Lymphocyte Count 0.94 X10^3/uL (0.83-4.51); Absolute Neutrophil Count 7.9 X10^3/uL (2.0-7.7); Basophil# 0.01 X10^3/uL; Basophil% 0.1 % (0-1); Hematocrit 33.5 % (37-47); Hemoglobin 10.7 g/dL (12.0-15.0); Lymphocyte # 0.94 X10^3/ul (0.83-4.51); Lymphocyte % 9.3 % (19-41); Mean Corp Hgb Conc 31.9 g/dL (32-36); Mean Corpuscular Hgb 31.8 pg (27.0-32.0); Mean Corpuscular Volume 99.7 fL (81-99); Mean Platelet Vol. 11.1 fl (6.2-12.0); Monocyte# 1.05 X10^3/uL; Monocyte% 10.4 % (0-10); NRBC Flagged by Analyzer 0 % (0-5); Neutrophil # 7.85 X10^3/uL (2.7-7.7); Neutrophil % 77.8 % (47-70); Platelet Count 178 K/mm3 (150-450); RBC Distribution Width CV 14.5 % (11.6-14.6); RBC Distribution Width SD 52.7 fl (35.1-43.9); Red Blood Count 3.36 M/mm3 (4.2-5.4); White Blood Count 10.1 K/mm3 (4.4-11.0)
[2021-03-20] MEDS: Ipratropium/Albuterol Sulfate 3 ML AMPUL.NEB INHALATION ×2 (07:03→15:09)
[2021-03-20 07:09] LABS: Anion Gap 5 (5-15); BUN 17 mg/dL (7-18); BUN/Creat Ratio 22.2 RATIO (10-20); Calcium,Total 8.3 mg/dL (8.5-10.1); Chloride 105 mmol/L (98-107); Creatinine, Serum 0.76 mg/dL (0.55-1.02); EST Glomerular Filtration Rate 82 mL/min (>60); Est Glom Filt Rate - Afr Amer 99 mL/min (>60); Estimated Creatinine Clearance 61.48 ml/min; Glucose 142 mg/dL (74-106); Potassium 3.7 mmol/L (3.5-5.1); Sodium Level 141 mmol/L (136-145)
[2021-03-20] MEDS: Gabapentin 300 MG Capsule PO ×3 (09:30→20:44)
[2021-03-20] MEDS: APIXABAN 5 MG TABLET 10 MG PO ×2 (09:30→20:45)
[2021-03-20] MEDS: Ferrous Sulfate 325 MG Tablet PO (09:30)
[2021-03-20] MEDS: lamoTRIgine 100 MG Tablet PO (09:31)
[2021-03-20] MEDS: Sertraline 100 MG Tablet 150 MG PO (09:31)
[2021-03-20] MEDS: Cholecalciferol (VIT D3) 25 MCG TABLET (1,000 UNITS) PO (09:31)
[2021-03-20] MEDS: Allopurinol 300 MG Tablet PO (09:32)
[2021-03-20] MEDS: ARIPiprazole 5 MG Tablet PO (09:32)
[2021-03-20] MEDS: buPROPion (XL) 150 MG TABLET.XL PO (09:33)
[2021-03-20 11:25] LABS: Bedside Glucose 176 mg/dL (70-110)
[2021-03-20] MEDS: NYSTATIN 500,000 UNIT/5 ML UDC 500000 UNIT PO ×4 (11:42→20:45)
--- NOTE | 2021-03-20 12:07 | PCM.PN.HOSP ---
Subjective Subjective Patient remains weak but improving daily. She was fatigued yesterday and did not get out of bed. I have encouraged her to get out of bed today. We discussed the importance of progressive increasing activity in her return home. She has been weaned to 1 L nasal cannula. Objective Data Objective Data Vital Signs: Vital Signs Temp Pulse Resp BP Pulse Ox 97.8 F 88 20 H 114/64 96 03/20/21 03:10 03/20/21 07:03 03/20/21 07:03 03/20/21 03:10 03/20/21 10:56 Oxygen Flow Rate (L/min) 1 Oxygen Delivery Method Nasal Cannula Weight: 69.9 kg Body Mass Index (BMI) 29.2 Intake & Output: Intake and Output for Last 24 Hours 03/18/21 03/19/21 03/20/21 23:59 23:59 23:59 Intake Total 968.69 / 1208.69 730 / 830 200 / 200 Output Total 550 / 850 1850 / 2150 650 / 650 Balance 418.69 / 358.69 -1120 / -1320 -450 / -450 Medical Nutrition Assessment Dietitian: Nutrition Therapy Diagnosis Start: 03/07/21 11:37 Freq: Status: Active Protocol: Document 03/17/21 10:00 (Rec: 03/17/21 10:00 [id number]) Nutrition Malnutrition Evidence of Malnutrition Exists No Intake Problem Inadequate Oral Intake Etiology related to decreased intake w/ acute illness, chewing/ swallowing difficulty, resp. 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 Will monitor need for supplements as PO intake is established. Lab / Micro Data Result Diagrams: 03/20/21 05:05 03/20/21 05:05 Labs: Laboratory Results - last 24 hr 03/19/21 12:38: POC Glucose 213 H 03/19/21 18:00: POC Glucose 226 H 03/20/21 00:04: POC Glucose 191 H 03/20/21 05:05: Sodium 141, Potassium 3.7, Chloride 105, Carbon Dioxide 31.0, Anion Gap 5, BUN 17, Creatinine 0.76, Estim Creat Clear Calc 61.48, Est GFR (MDRD) Af Amer 99, Est GFR (MDRD) Non-Af 82, BUN/Creatinine Ratio 22.2 H, Glucose 142 H, Calcium 8.3 L 03/20/21 05:05: WBC 10.1, RBC 3.36 L, Hgb 10.7 L, Hct 33.5 L, MCV 99.7 H, MCH 31.8, MCHC 31.9 L, RDW Std Deviation 52.7 H, RDW Coeff of Suki 14.5, Plt Count 178, MPV 11.1, Immature Gran % (Auto) 1.400 H, Neut % (Auto) 77.8 H, Lymph % (Auto) 9.3 L, [place] % (Auto) 10.4 H, Eos % (Auto) 1.0, Baso % (Auto) 0.1, Absolute Neuts (auto) 7.9 H, Absolute Lymphs (auto) 0.94, Nucleated RBC % 0 03/20/21 06:19: POC Glucose 129 H 03/20/21 11:04: POC Glucose 176 H Micro: Microbiology 03/11/21 17:02 Mucosa - Nasopharyngeal SARS-CoV-2 Antigen (Rapid) - Final 03/06/21 22:08 Blood Culture (Wb) - Anticubital Left Blood Culture - Final Gram negative javid 03/06/21 21:45 Blood Culture (Wb) - Anticubital Right Blood Culture - Final Escherichia coli 03/07/21 06:24 Stool C. difficile DNA Amplification - Final 03/07/21 02:05 Mucosa - Nose Respiratory Panel (PCR) - Final 03/07/21 02:30 Stool Stool Occult Blood (SHAYLA) - Final Occult Blood Positive 03/06/21 22:35 Urine Catheter - Catheter Legionella Antigen - Final 03/06/21 22:35 Urine Catheter - Catheter Streptococcus pneumoniae Antigen (M - Final Physical Exam Const Constitutional Narrative: Upper middle-aged white female sitting up in bed sleeping but awakens easily, patient appears much older than stated age, nontoxic-appearing, cough is weak but productive intermittently Exam Limitations: no limitations HEENT head/scalp atraumatic HEENT Narrative: Significant thrush noted on exam Head and Scalp: normocephalic Resp normal respiratory effort, no retractions, no use of accessory muscles and clear to auscultation bilaterally Resp Narrative: Diffusely diminished but clear on exam Auscultation: Negative for crackles, rales, rhonchi or wheezes Cardio regular rate, regular rhythm, S1 normal heart sound, S2 normal heart sound, no murmurs, no rub, no gallops, no clicks and no JVD GI normal to inspection, nondistended, normoactive bowel sounds, soft to palpation, non-tender and non-distended; Negative for hepatosplenomegaly Extremity Extremity Narrative: Trace bilateral lower extremity edema, 1+ bilateral upper extremity edema-improving, no cyanosis or clubbing General Extremity: edema Peripheral Pulses: Yes pulses 2+ throughout Skin Skin Narrative: Skin is extremely sapp-patient admits to extensive amounts of time in the sun, right IJ in place and is clean and dry Neuro oriented x3 and moves all extremities Neuro Narrative: Marked generalized weakness Sensorium / Orientation: awake and alert Speech: speech normal Psych Psych Narrative: Affect is somewhat flat Assessment & Plan Assessment/Plan (1) Septic shock: (2) Ischemic colitis: (3) Aspiration into airway: (4) Acute respiratory failure with hypoxia and hypercapnia: PLAN: Acute sepsis secondary to ischemic bowel -Abdominal pain has resolved -Patient was evaluated by general surgery -1 of 2 blood cultures on admission were positive for E. coli -Antibiotics completed 03/19/2021 Acute hypoxic and hypercapnic respiratory failure secondary to PE/aspiration/ARDS -CT of the chest revealed PE along with diffuse bilateral airspace disease -Continue Vanco and Zosyn at this time but after today we will decrease coverage to Unasyn versus Augmentin to cover her aspiration event -COVID-19 PCR negative -Patient has now been weaned to 1 L nasal cannula during the day--> she is not O2 dependent at baseline -SpO2 is 96% on 1 L -Continue CPAP at at bedtime -Encourage continued use of I-S and added Pep therapy today -Viral respiratory panel was negative -Her cardiogram shows an EF of 60% with no regional wall motion abnormalities -Continue pulmonary toilet -Continue anticoagulation with bivalirudin secondary to suspected HIT -Wean prednisone to 30 mg daily today Pulmonary embolism -Continue Eliquis Oral candidiasis -Start nystatin swish and spit Dysphagia -Continue speech therapy -Suspect related to profound weakness related to acute illness -Current diet is pur?ed with thin liquids and she is a feed with supervision Metabolic encephalopathy -Much improved -Still sleepy but mentation has improved significantly -Continue to monitor VILMA on CKD stage IIIa -VILMA has resolved Acute on chronic anemia -Hemoccult positive early during hospitalization -Patient with known chronic iron deficiency -Hemoglobin is relatively stable despite full anticoagulation with Eliquis -Continue to monitor -Continue iron supplementation Acute thrombocytopenia -Drop was precipitous after initiation of heparin/low molecular weight heparin -HIT antibody remains pending -Resolved with platelet count of 178,000 -If HIT antibody positive place heparin and Lovenox as an allergy DM-2 with hyperglycemia -Secondary to steroid use -Continue SSI -Goal blood sugars 140-180 -Blood sugars are improving -Continue to hold home oral agents NSTEMI -Suspect stress-induced/demand ischemia related to sepsis -Echo shows normal EF with no wall motion abnormality -No further work-up at this time -Patient was evaluated by cardiology -We will refer for outpatient stress once patient clinically improved with regards to her sepsis Hypernatremia/hyperchloremia -Resolved Hypomagnesemia -Resolved Anxiety/depression/bipolar disorder -Continue home medications as ordered Baseline COPD -Continue pulmonary toilet -Patient is not O2 dependent at baseline History of gout -Continue allopurinol Diabetic neuropathy -Continue gabapentin Hyperlipidemia -Continue atorvastatin DVT prophylaxis -Patient is on bivalirudin CODE STATUS -Full code Charges/Coding Visit Charges Inpatient E&M: 36728 Subs Hosp L2
[2021-03-20] MEDS: Pantoprazole Sodium 40 MG Tablet PO ×2 (12:33→20:48)
[2021-03-20 17:20] LABS: Bedside Glucose 260 mg/dL (70-110)
[2021-03-20] MEDS: Atorvastatin Calcium 10 MG Tablet PO (20:44)
[2021-03-20] MEDS: Menthol/Lanolin/Calamine/Znox 113 GM Tube 1 APPLIC TOPICAL (20:48)
[2021-03-20 23:16] LABS: Bedside Glucose 187 mg/dL (70-110)
[2021-03-21] VITALS (11 sets, daily range): BP systolic 103–118; BP diastolic 55–73; PULSE 76–104; RESP 16–24; TEMP 35.7–36.2; O2SAT 94–99
[2021-03-21 05:41] LABS: Bedside Glucose 133 mg/dL (70-110)
[2021-03-21 07:23] LABS: Absolute Neutrophil Count 6.2 X10^3/uL (2.0-7.7); Basophil# 0.01 X10^3/uL; Basophil% 0.1 % (0-1); Eosinophil# 0.11 X10^3/uL; Eosinophils% 1.3 % (0-5); Hemoglobin 10.8 g/dL (12.0-15.0); Lymphocyte % 11.5 % (19-41); Mean Corp Hgb Conc 32.7 g/dL (32-36); Mean Corpuscular Hgb 32.4 pg (27.0-32.0); Mean Corpuscular Volume 99.1 fL (81-99); Mean Platelet Vol. 10.3 fl (6.2-12.0); Monocyte# 1.32 X10^3/uL; Monocyte% 15.2 % (0-10); NRBC Flagged by Analyzer 0 % (0-5); Neutrophil # 6.15 X10^3/uL (2.7-7.7); Neutrophil % 70.6 % (47-70); Platelet Count 209 K/mm3 (150-450); RBC Distribution Width CV 14.2 % (11.6-14.6); RBC Distribution Width SD 51.4 fl (35.1-43.9); Red Blood Count 3.33 M/mm3 (4.2-5.4); White Blood Count 8.7 K/mm3 (4.4-11.0)
[2021-03-21 07:39] LABS: Anion Gap 2 (5-15); BUN 13 mg/dL (7-18); BUN/Creat Ratio 18.4 RATIO (10-20); Calcium,Total 8.3 mg/dL (8.5-10.1); Chloride 103 mmol/L (98-107); EST Glomerular Filtration Rate 90 mL/min (>60); Est Glom Filt Rate - Afr Amer 109 mL/min (>60); Estimated Creatinine Clearance 66.75 ml/min; Glucose 128 mg/dL (74-106); Potassium 3.6 mmol/L (3.5-5.1); Sodium Level 138 mmol/L (136-145)
[2021-03-21] MEDS: Ipratropium/Albuterol Sulfate 3 ML AMPUL.NEB INHALATION ×2 (07:48→11:29)
[2021-03-21] MEDS: Gabapentin 300 MG Capsule PO ×2 (08:53→11:34)
[2021-03-21] MEDS: predniSONE 10 MG Tablet 30 MG PO (08:53)
[2021-03-21] MEDS: Ferrous Sulfate 325 MG Tablet PO (08:53)
[2021-03-21] MEDS: Saliva Substitute 237 ML BOTTLE 15 ML MUCOUS MEM (09:00)
[2021-03-21] MEDS: BENZOCAINE/MENTHOL 1 LOZENGE MUCOUS MEM (09:02)
--- NOTE | 2021-03-21 09:52 | CASEMGMT ---
SHRUTHI received a call from [facility] and patient was approved. Patient's pre-cert is only good for today. SHRUTHI will notify physician. Lauren GRIMALDO
[2021-03-21] MEDS: buPROPion (XL) 150 MG TABLET.XL PO (09:59)
[2021-03-21] MEDS: NYSTATIN 500,000 UNIT/5 ML UDC 500000 UNIT PO ×2 (09:59→15:03)
[2021-03-21] MEDS: APIXABAN 5 MG TABLET 10 MG PO (09:59)
[2021-03-21] MEDS: Pantoprazole Sodium 40 MG Tablet PO (09:59)
[2021-03-21] MEDS: Allopurinol 300 MG Tablet PO (09:59)
[2021-03-21] MEDS: lamoTRIgine 100 MG Tablet PO (09:59)
[2021-03-21] MEDS: Sertraline 100 MG Tablet 150 MG PO (09:59)
[2021-03-21] MEDS: ARIPiprazole 5 MG Tablet PO (09:59)
[2021-03-21] MEDS: Cholecalciferol (VIT D3) 25 MCG TABLET (1,000 UNITS) PO (09:59)
[2021-03-21] MEDS: Insulin Lispro 100 UNIT/ML INSULN.PEN SC (11:34)
[2021-03-21 11:41] LABS: Bedside Glucose 291 mg/dL (70-110)
--- NOTE | 2021-03-21 13:29 | PCM.TXEXTCAR ---
Diet 03/16/21 11:02 Diet: Regular - General Food consistency:: Pureed Liquid Consistency:: Regular/Thin Type of Dietary Supplement:: Ensure Pudding Is pt able to select menu?: No Diet Comments: TOTAL FEED, all bites/sips by tsp, discont. diet if change in resp. status Routine Orders/Code Status O2 Liters per Minute: 2 Keep PO Greater than or Equal to (%): 94 Routine Lab Work: CBC (within 3 days) and BMP (within 3 days) Code Status: Full Code Therapies Weight Bearing: Non weight bearing Problem/Diagnosis (1) Septic shock: Status: Acute (2) Ischemic colitis: Status: Chronic (3) Aspiration into airway: Status: Acute (4) Acute respiratory failure with hypoxia and hypercapnia: Status: Acute Allergies/Procedures Done in Hospital Allergies No Known Allergies Allergy (Verified 03/06/21 20:11) Procedures: 2-D Echocardiogram and Central line placement Type of Care/Length of Stay Estimated LOS: Convalescent Care Less Than 30 days Type of Care Needed: Skilled Rehab Potential: Good Prognosis: Fair Additional Orders/Day of Discharge Day of Discharge: 03/21/21 Dietary and Speech Recommendations Dietitian Recommendations/Changes: Continue regular diet as tolerated, consistency/texture modifications per SENIOR BILLING CONSULTANT--currently pureed solids and thin liquids. Will add ensure pudding w/ meals as tolerated. Will add glucerna shake 120ml 3 times per day w/ medpass as tolerated. Follow Up Care Please follow up with your Primary Care Physician in: 1-2 weeks after discharge Please Follow Up With: Jason Clemente MD When: 2-4 weeks Please Follow Up With: Shawn Briggs DO When: within 1 month Please Follow Up With: Dewey Ch NP, TECHNICAL MARKETING ENGINEER-C When: within 1 month Discharge Plan Admission Admit Date/Time: 03/07/21 00:00 Primary Reason for Your Visit: septic shock Attending Provider: Syeda Gilbert Primary Care Provider: Hua Mosher Consulting Providers: Megan Patterson ; Jason Clemente ; Shawn Briggs Discharge Orders/Prescriptions Prescriptions: New sennosides-docusate sodium [Stool Softener-Stimulant Laxat] 8.6-50 mg Tablet 2 tab PO BID PRN PRN (Reason: Constipation) Qty: 0 RF: 0 Biotene Dry Mouth Oral Rinse Mouthwash 15 ml mucous membrane 5X/DAY PRN (Reason: Dry Mouth) Qty: 0 RF: 0 acetaminophen [Tylenol] 325 mg Tablet 650 mg PO Q4H PRN PRN (Reason: Fever, pain -05/15) Qty: 30 RF: 0 albuterol sulfate 2.5 mg /3 mL (0.083 %) Solution For Nebulization 2.5 mg inhalation Q2H PRN PRN (Reason: Dyspnea, wheezing) Qty: 3 RF: 0 prednisone 20 mg Tablet 40 mg PO BREAKFAST Qty: 0 RF: 0 Eliquis 5 mg Tablet 10 mg PO BID Qty: 0 RF: 0 Eliquis 5 mg Tablet 5 mg PO BID Qty: 0 RF: 0 Continued furosemide 20 mg tablet 20 mg PO 1200 RF: 0 umeclidinium-vilanterol 62.5-25 mcg/actuation blister with device 1 inh INHALATION DAILY Qty: 60 RF: 6 simvastatin 20 MG tablet 20 mg PO QHS RF: 0 trazodone 100 MG tablet 200 mg PO QHS RF: 0 linagliptin 5 MG tablet 5 mg PO DAILY RF: 0 gabapentin 300 MG capsule 300 mg PO 0800,1200 RF: 0 gabapentin 600 MG tablet 600 mg PO QHS RF: 0 allopurinol 100 MG tablet 300 mg PO DAILY RF: 0 furosemide 40 MG tablet 40 mg PO 0800 RF: 0 sertraline 100 MG tablet 150 mg PO DAILY RF: 0 ferrous sulfate 325 MG tablet 325 mg PO DAILY RF: 0 indapamide 1.25 MG tablet 1.25 mg PO MOFR RF: 0 lamotrigine 100 MG tablet 100 mg PO DAILY RF: 0 aripiprazole 5 MG tablet 5 mg PO DAILY RF: 0 cholecalciferol (vitamin D3) 1,000 UNIT tablet 1,000 unit PO DAILY RF: 0 bupropion HCl (smoking deter) 150 MG tablet extended release 12 hr 150 mg PO DAILY RF: 0 Potassium Chloride 20 MEQ Tab.Er.Prt 2 tablet PO BID RF: 0 docusate sodium 100 MG capsule 100 mg PO PRN PRN (Reason: Constipation) RF: 0 aripiprazole 10 mg tablet RF: 0 Discontinued albuterol sulfate 90 mcg/actuation HFA aerosol inhaler 2 puff INHALATION Q6H PRN (Reason: shortness of breath) Qty: 1 RF: 6 Referrals / Follow Up: Hua Mosher MD [Primary Care Provider] - In 1 Week Shawn Briggs DO [STAFF PHYSICIAN] - Within 1 Month Dewey Ch NP, TECHNICAL MARKETING ENGINEER-C [Nurse Practitioner] - Within 1 Month (for stress test) Disposition Disposition (needs filled in before D/C Order can be placed): [facility]
--- NOTE | 2021-03-21 13:43 | PCM.DC.SUM ---
Providers Date of Admission: 03/07/21 Date of Discharge: 03/21/21 Primary Care Physician: Dr. Hua Mosher MD Consultations 03/07/21 00:36 Consult: Elevator Repairer Helper / Pulmonary Medicine Routine Consulting Provider: Shawn Briggs Reason for Consult: Septic shock, ? UTI source EMERGENT Consult: No Notified: Yes Date Notified: 03/06/21 Time Notified: 23:53 Method of Notification: cortext 03/07/21 03:27 Consult: General Surgery Routine Consulting Provider: Jason Clemente Reason for Consult: Septic shock, GI bleed, ? intra-abdominal source EMERGENT Consult: Yes MD Notified: Yes Date Notified: 03/07/21 Time Notified: 03:27 Method of Notification: cortext back and forth 03/14/21 15:51 Consult: Cardiology Routine Consulting Provider: Megan Patterson Reason for Consult: Trop>2000 EMERGENT Consult: No MD Notified: Yes Date Notified: 03/14/21 Time Notified: 16:08 Method of Notification: Verbal Reason For Visit: SEPTIC SHOCK, ? UTI SOURCE, HYPOKALEMIA Diagnosis Discharge Diagnosis (1) Septic shock: Status: Resolved Code(s): A41.9 - Sepsis, unspecified organism; R65.21 - Severe sepsis with septic shock (2) Ischemic colitis: Status: Chronic Code(s): K55.9 - Vascular disorder of intestine, unspecified (3) Aspiration into airway: Status: Resolved Code(s): T17.908A - Unspecified foreign body in respiratory tract, part unspecified causing other injury, initial encounter (4) Acute respiratory failure with hypoxia and hypercapnia: Status: Acute Code(s): J96.01 - Acute respiratory failure with hypoxia; J96.02 - Acute respiratory failure with hypercapnia Medications at Discharge Home Medications simvastatin 20 mg PO QHS 10/08/15 trazodone 200 mg PO QHS 08/23/16 linagliptin 5 mg PO DAILY 10/15/17 gabapentin 300 mg PO 0800,1200 11/28/17 gabapentin 600 mg PO QHS 04/20/18 allopurinol 300 mg PO DAILY 07/30/18 Potassium Chloride 2 tablet PO BID 07/09/19 aripiprazole 5 mg PO DAILY 07/09/19 bupropion HCl (smoking deter) 150 mg PO DAILY 07/09/19 cholecalciferol (vitamin D3) 1,000 unit PO DAILY 07/09/19 docusate sodium 100 mg PO PRN PRN 07/09/19 ferrous sulfate 325 mg PO DAILY 07/09/19 furosemide 40 mg PO 0800 07/09/19 indapamide 1.25 mg PO MOFR 07/09/19 lamotrigine 100 mg PO DAILY 07/09/19 sertraline 150 mg PO DAILY 07/09/19 umeclidinium 62.5 mcg-vilanterol 25 mcg/actuation powdr for inhalation 1 inh INHALATION DAILY #60 ea 12/17/19 aripiprazole mg 03/06/21 acetaminophen [Tylenol] 650 mg PO Q4H PRN PRN #30 tab 03/19/21 albuterol sulfate 2.5 mg INHALATION Q2H PRN PRN #3 ml 03/19/21 apixaban [Eliquis] 5 mg PO BID #0 tab 03/19/21 apixaban [Eliquis] 10 mg PO BID #0 tab 03/19/21 saliva substitute combo no.9 [Biotene Dry Mouth Oral Rinse] 15 ml MUCOUS MEMBRANE 5X/DAY PRN #0 ml 03/19/21 sennosides-docusate sodium [Stool Softener-Stimulant Laxat] 2 tab PO BID PRN PRN #0 tab 03/19/21 menthol-zinc oxide [Calmoseptine] 1 applic TOPICAL 4X/DAY #0 g 03/21/21 nut.tx.gluc intol,lf,soy-fiber [Glucerna 1.2 Doc] 120 ml PO TIDCM #0 ml 03/21/21 nystatin 500,000 unit PO 4X/DAY #0 ml 03/21/21 prednisone See Taper PO DAILY #20 tab 03/21/21 Hospital Course Operations None Procedures 2-D Echocardiogram Summary of Care Provided Minutes Spent on Discharge: 45 Hospital Course: Mrs. Fisher is a 61-year-old white female who presented to the emergency department at [facility] on 03/06/2021 with lethargy, fatigue, and weakness. She was found on the floor by family and it was suspected she was there for approximately 24 hours. On presentation to the emergency department they reported that her fatigue and lethargy had been more pronounced the day prior to admission. She noted some mild nausea and emesis following meals. She denied any abdominal pain, constipation, or diarrhea however. She denied fever and chills and was evaluated by EMS the day prior to admission but declined transfer at that time. Upon presentation she was hypotensive with a blood pressure of 80/53 her UA was suspicious for a UTI. Blood cultures and urine cultures were obtained at that time and she was placed in the intensive care unit with septic shock. She was volume resuscitated but did require pressors for short period of time. Her blood cultures grew gram-negative rods and the source was suspected to be intra-abdominal as she developed Hemoccult positive stools. She had significant VILMA which resolved. She had mild rhabdomyolysis which resolved prior to discharge. A CT of her abdomen pelvis was performed and suggested ischemic colitis. She was evaluated by general surgery for her Hemoccult positive stools and her colitis but is felt that she would improve with conservative management, which she did, and any intervention was deferred at that time. Right internal jugular vein central venous catheter was placed on 03/07/2021. She had been improving but developed acute respiratory failure with hypoxia and hypercapnia and required noninvasive ventilation. A CTA of her chest was performed and and showed pulmonary emboli for which she was started on a heparin drip. While on heparin drip she got progressively thrombocytopenic and there was suspicion that she developed HIT therefore she was taken off heparin products and placed on bivalirudin for anticoagulation and a HIT antibody was sent. The HIT antibody was still pending on discharge. If this antibody is positive I would recommend placing heparin and heparin products on her allergy list. Her platelet count was trending up upon discharge. She was converted to Eliquis. While on anticoagulation she demonstrated stable hemoglobin and had no signs of further GI bleed. I suspect her GI bleed was related to ischemic colitis. Her blood culture resulted positive for E. coli and she was treated with a complete course of IV antibiotics during her hospitalization. She also had an aspiration event and was treated with antibiotics for this as well. She was evaluated by speech therapy and placed on a modified diet with instruction for continued speech therapy at discharge. During her hospitalization she was found to have troponin elevation. Cardiology did evaluate the patient and felt that this was likely a type II NSTEMI related to her respiratory failure and septic shock. An echocardiogram was performed and showed no wall motion abnormality and preserved ejection fraction. She has been referred to cardiology as an outpatient for stress test once her acute medical issues have resolved. She was able to be transferred out of the ICU on 03/17/2021 where she progressed well on the general medical floor. She initially was resistant to long-term facility transfer upon discharge but did poorly with therapy and was agreeable for short-term placement for continued rehab prior to discharge home. She is currently on Eliquis 10 mg twice daily and this will continue until 03/25/2021. She will then decrease to 5 mg twice daily indefinitely at that point. Her home Lasix was restarted upon discharge. She is to follow-up with her primary care physician in 1 week, she was given referral for pulmonology and cardiology to follow-up within the next month. She was discharged in stable condition. s Physical Exam Const alert, oriented x3 and no apparent distress Constitutional Narrative: Upper middle-aged white female sitting up in bed sleeping but awakens easily, patient appears much older than stated age, nontoxic-appearing, cough is weak but productive intermittently General Appearance: cooperative, comfortable, well kempt and well developed Orientation / Consciousness: awake, oriented to place and confused Exam Limitations: no limitations HEENT normocephalic, head/scalp atraumatic, hearing grossly normal bilaterally and moist oral mucous membranes Eyes PERRL, EOMs intact bilaterally and conjunctivae normal Neck no lymphadenopathy, supple and no JVD Neck Narrative: Trachea midline Resp normal respiratory effort, no retractions, no use of accessory muscles and clear to auscultation bilaterally Resp Narrative: Diffusely diminished but clear on exam Auscultation: diminished lung sounds; Negative for crackles, rales, rhonchi or wheezes Cardio regular rate, regular rhythm, S1 normal heart sound, S2 normal heart sound, no murmurs, no rub, no gallops, no clicks and no JVD Rate: tachycardic GI normal to inspection, nondistended, normoactive bowel sounds, soft to palpation, non-tender and non-distended; Negative for hepatosplenomegaly Extremity normal to inspection, full ROM and no clubbing, cyanosis or edema Extremity Narrative: Trace bilateral lower extremity edema, 1+ bilateral upper extremity edema-improving, no cyanosis or clubbing General Extremity: edema Skin no rashes or lesions noted, no wounds, skin turgor normal, no jaundice, no petechiae and no mottling Skin Narrative: Skin is extremely sapp-patient admits to extensive amounts of time in the sun, right IJ in place and is clean and dry Neuro oriented x3, CN's II-XII intact bilaterally, moves all extremities, no focal motor deficits and no sensory deficits noted Neuro Narrative: Marked generalized weakness Sensorium / Orientation: awake, alert, oriented to person, oriented to place and oriented to time Speech: speech normal Motor Exam: strength 5/5 throughout Psych affect normal Psych Narrative: Affect is somewhat flat Appearance: appropriate Mood & Affect: flat affect Medical Records Data Medical Nutrition Assessment Dietitian: Malnutrition Criteria Met Start: 03/07/21 11:37 Freq: Status: Active Protocol: Document 03/17/21 10:00 AG (Rec: 03/17/21 10:00 AG [id number]) Nutrition Malnutrition Evidence of Malnutrition Exists No Intake Problem Inadequate Oral Intake Etiology related to decreased intake w/ acute illness, chewing/ swallowing difficulty, resp. failure Signs/Symptoms as evidenced by <50% of estimated nutritional needs being met via PO diet x 3 days BAGGAGE HANDLER and for 6 days since admission Status Active Problem Clinical Problem Swallowing Difficulty Etiology related to dysphagia Signs/Symptoms as evidenced by inability to consume regular texture/thin consistency foods/liquids w/o aspiration Status Active Problem Recommendation Dietitian Recommendations/Changes continue regular diet as tolerated, consistency/texture modifications per MARKETING DATABASE COORDINATOR. Will monitor need for supplements as PO intake is established. Weight / BMI Weight Weight: 69.7 kg Body Mass Index (BMI) 29.2 ABG / Lab / Microbiology Data Result Diagrams: 03/21/21 07:14 03/21/21 07:14 Laboratory: Laboratory Results - last 24 hr 03/20/21 17:10: POC Glucose 260 H 03/20/21 23:06: POC Glucose 187 H 03/21/21 05:32: POC Glucose 133 H 03/21/21 07:14: Sodium 138, Potassium 3.6, Chloride 103, Carbon Dioxide 33.0 H, Anion Gap 2 L, BUN 13, Creatinine 0.70, Estim Creat Clear Calc 66.75, Est GFR (MDRD) Af Amer 109, Est GFR (MDRD) Non-Af 90, BUN/Creatinine Ratio 18.4, Glucose 128 H, Calcium 8.3 L 03/21/21 07:14: WBC 8.7, RBC 3.33 L, Hgb 10.8 L, Hct 33.0 L, MCV 99.1 H, MCH 32.4 H, MCHC 32.7, RDW Std Deviation 51.4 H, RDW Coeff of Suki 14.2, Plt Count 209, MPV 10.3, Immature Gran % (Auto) 1.300 H, Neut % (Auto) 70.6 H, Lymph % (Auto) 11.5 L, [place] % (Auto) 15.2 H, Eos % (Auto) 1.3, Baso % (Auto) 0.1, Absolute Neuts (auto) 6.2, Absolute Lymphs (auto) 1.00, Nucleated RBC % 0 03/21/21 11:32: POC Glucose 291 H Microbiology: Microbiology 03/21/21 12:48 Mucosa - Nose SARS-CoV-2 Antigen (Rapid) - Final 03/11/21 17:02 Mucosa - Nasopharyngeal SARS-CoV-2 Antigen (Rapid) - Final 03/06/21 22:08 Blood Culture (Wb) - Anticubital Left Blood Culture - Final Gram negative javid 03/06/21 21:45 Blood Culture (Wb) - Anticubital Right Blood Culture - Final Escherichia coli 03/07/21 06:24 Stool C. difficile DNA Amplification - Final 03/07/21 02:05 Mucosa - Nose Respiratory Panel (PCR) - Final 03/07/21 02:30 Stool Stool Occult Blood (SHAYLA) - Final Occult Blood Positive 03/06/21 22:35 Urine Catheter - Catheter Legionella Antigen - Final 03/06/21 22:35 Urine Catheter - Catheter Streptococcus pneumoniae Antigen (M - Final D/C Instructions Discharge Diet: Low fat / Low cholesterol and 1800 Calorie Control Diet Please Follow Up With: Jason Clemente MD Meaningful Use Info Meaningful Use Diagnoses (Choose all that apply): None applicable Discharge Plan Admission Admit Date/Time: 03/07/21 00:00 Primary Reason for Your Visit: septic shock Attending Provider: Syeda Gilbert Primary Care Provider: Hua Mosher Consulting Providers: Megan Patterson ; Jason Clemente ; Shanw Briggs Discharge Orders/Prescriptions Prescriptions: New sennosides-docusate sodium [Stool Softener-Stimulant Laxat] 8.6-50 mg Tablet 2 tab PO BID PRN PRN (Reason: Constipation) Qty: 0 RF: 0 Biotene Dry Mouth Oral Rinse Mouthwash 15 ml mucous membrane 5X/DAY PRN (Reason: Dry Mouth) Qty: 0 RF: 0 acetaminophen [Tylenol] 325 mg Tablet 650 mg PO Q4H PRN PRN (Reason: Fever, pain 1-05/15) Qty: 30 RF: 0 albuterol sulfate 2.5 mg /3 mL (0.083 %) Solution For Nebulization 2.5 mg inhalation Q2H PRN PRN (Reason: Dyspnea, wheezing) Qty: 3 RF: 0 Eliquis 5 mg Tablet 10 mg PO BID Qty: 0 RF: 0 Eliquis 5 mg Tablet 5 mg PO BID Qty: 0 RF: 0 nystatin 100,000 unit/mL Suspension 500,000 unit PO 4X/DAY Qty: 0 RF: 0 Glucerna 1.2 Doc 0.06-1.2 gram-kcal/mL Liquid 120 ml PO TIDCM Qty: 0 RF: 0 menthol-zinc oxide [Calmoseptine] 0.44-20.6 % Ointment 1 applic topical 4X/DAY Qty: 0 RF: 0 prednisone 10 mg tablet See Taper mg PO DAILY Qty: 20 RF: 0 Continued umeclidinium-vilanterol 62.5-25 mcg/actuation blister with device 1 inh INHALATION DAILY Qty: 60 RF: 6 simvastatin 20 MG tablet 20 mg PO QHS RF: 0 trazodone 100 MG tablet 200 mg PO QHS RF: 0 linagliptin 5 MG tablet 5 mg PO DAILY RF: 0 gabapentin 300 MG capsule 300 mg PO 0800,1200 RF: 0 gabapentin 600 MG tablet 600 mg PO QHS RF: 0 allopurinol 100 MG tablet 300 mg PO DAILY RF: 0 furosemide 40 MG tablet 40 mg PO 0800 RF: 0 sertraline 100 MG tablet 150 mg PO DAILY RF: 0 ferrous sulfate 325 MG tablet 325 mg PO DAILY RF: 0 indapamide 1.25 MG tablet 1.25 mg PO MOFR RF: 0 lamotrigine 100 MG tablet 100 mg PO DAILY RF: 0 aripiprazole 5 MG tablet 5 mg PO DAILY RF: 0 cholecalciferol (vitamin D3) 1,000 UNIT tablet 1,000 unit PO DAILY RF: 0 bupropion HCl (smoking deter) 150 MG tablet extended release 12 hr 150 mg PO DAILY RF: 0 Potassium Chloride 20 MEQ Tab.Er.Prt 2 tablet PO BID RF: 0 docusate sodium 100 MG capsule 100 mg PO PRN PRN (Reason: Constipation) RF: 0 aripiprazole 10 mg tablet RF: 0 Discontinued furosemide 20 mg tablet 20 mg PO 1200 RF: 0 albuterol sulfate 90 mcg/actuation HFA aerosol inhaler 2 puff INHALATION Q6H PRN (Reason: shortness of breath) Qty: 1 RF: 6 Referrals / Follow Up: Hua Mosher MD [Primary Care Provider] - In 1 Week Shawn Briggs DO [STAFF PHYSICIAN] - Within 1 Month Dewey Ch FORM TAMPING MACHINE OPERATOR, FORM TAMPING MACHINE OPERATOR-C [Nurse Practitioner] - Within 1 Month (for stress test) Disposition Disposition (needs filled in before D/C Order can be placed): [facility] Charges/Coding Visit Charges Inpatient E&M: 81918 Disch Hosp
--- NOTE | 2021-03-21 14:07 | CASEMGMT ---
Patient's son was in patient's room. SW let him know patient's insurance approved her to go to [facility] today. Patient was sleeping. Plan: d/c to [facility] at [place] under skilled level of care on a convalescent stay. [facility] transported via cot. Lauren GRIMALDO
--- NOTE | 2021-03-21 14:20 | CASEMGMT ---
SHRUTHI arranged for patient to get picked up at 3p via cot. SW faxed orders and negative COVID to [place]. SHRUTHI also wrote on fax face sheet that patient will be picked up at 3p. SHRUTHI completed convalescent on HENS. SHRUTHI notified medical secretary, RN, patient, and her son of the continuous pickling line pickler time. Plan: d/c to [place] at [place] under skilled level of care on a convalescent stay. [facility] transported via cot. Lauren GRIMALDO
--- NOTE | 2021-03-21 15:23 | NURSING ---
IJ dc'd tip intact. 2 sutures removded. Pressure held x5 minutes. Vaseline guaze with 2X2 and secured with tegaderm. Instructed to lay flat x 30 minutes.
--- NOTE | 2021-03-21 15:51 | NURSING ---
REPORT CALLED TO DONNIE, NURSE AT THE [facility].
== END 2021-03-21 15:43 | disposition skilled nursing facility (03) | DRG 871 ==
LOC: ED 23:51 → ICU 03-07 00:20 → PCU 03-18 10:09
PROVIDERS: Family Medicine; Internal Medicine; Internal Medicine Critical Care Medicine; Specialist; Admitting Provider Family Medicine; Emergency Provider Emergency Medicine; PCP Family Medicine; Visit Provider Internal Medicine
DX: A41.9 Sepsis, unspecified organism (principal); G93.41 Metabolic encephalopathy; I21.A1 Myocardial infarction type 2; I26.99 Other pulmonary embolism without acute cor pulmonale; J96.01 Acute respiratory failure with hypoxia; J96.02 Acute respiratory failure with hypercapnia; R65.21 Severe sepsis with septic shock; J69.0 Pneumonitis due to inhalation of food and vomit; K55.9 Vascular disorder of intestine, unspecified; M62.82 Rhabdomyolysis; N17.9 Acute kidney failure, unspecified; E87.0 Hyperosmolality and hypernatremia; N30.00 Acute cystitis without hematuria; B37.0 Candidal stomatitis; D50.9 Iron deficiency anemia, unspecified; D69.6 Thrombocytopenia, unspecified; B96.20 Unspecified Escherichia coli [E. coli] as the cause of diseases classified elsewhere; S52.511D Displaced fracture of right radial styloid process, subsequent encounter for closed fracture with routine healing; W19.XXXD Unspecified fall, subsequent encounter; E11.22 Type 2 diabetes mellitus with diabetic chronic kidney disease; I95.9 Hypotension, unspecified; E78.5 Hyperlipidemia, unspecified; E87.6 Hypokalemia; T50.2X5A Adverse effect of carbonic-anhydrase inhibitors, benzothiadiazides and other diuretics, initial encounter; D75.82 Heparin induced thrombocytopenia (HIT); T45.515A Adverse effect of anticoagulants, initial encounter; Y92.9 Unspecified place or not applicable; E83.42 Hypomagnesemia; E86.0 Dehydration; E11.65 Type 2 diabetes mellitus with hyperglycemia; T38.0X5A Adverse effect of glucocorticoids and synthetic analogues, initial encounter; R13.10 Dysphagia, unspecified; E87.8 Other disorders of electrolyte and fluid balance, not elsewhere classified; J44.9 Chronic obstructive pulmonary disease, unspecified; F31.9 Bipolar disorder, unspecified; E11.40 Type 2 diabetes mellitus with diabetic neuropathy, unspecified; M10.9 Gout, unspecified; F41.9 Anxiety disorder, unspecified; G47.33 Obstructive sleep apnea (adult) (pediatric); G89.4 Chronic pain syndrome; I12.9 Hypertensive chronic kidney disease with stage 1 through stage 4 chronic kidney disease, or unspecified chronic kidney disease; N18.31 Chronic kidney disease, stage 3a; M54.12 Radiculopathy, cervical region; M79.7 Fibromyalgia; Z79.899 Other long term (current) drug therapy; F17.210 Nicotine dependence, cigarettes, uncomplicated; Z98.1 Arthrodesis status
CPT/HCPCS: 36415; 36600; 70450; 71045; 71275; 72125; 74177; 74230; 80048; 80053; 80202; 81001; 82274; 82542; 82550; 82803; 82962; 83036; 83605; 83735; 83880; 84100; 84295; 84484; 85025; 85027; 85379; 85610; 85730; 87040; 87077; 87186; 87426; 87449; 87493; 87633; 87635; 87641; 92507; 92526; 92610; 92611; 93005; 93306; 94003; 94640; 94660; 97110; 97116; 97162; 97166; 97530; 97535; 97802; 97803; 99251; 99285; 99406; J7030; J7040; J7050; Q9957; Q9967; U0005; A4216; C1751; G0463; J0583; J0696; J1940; J2405; J3490; U0003

== ENCOUNTER → 2021-05-18 12:07 | Outpatient (CLI) | payer MEDICARE, MEDICAID, SELFPAY ==
--- NOTE | 2021-05-18 12:16 | RAD_ITS ---
STUDY: X-RAY - UNILATERAL RIBS ( LEFT ) REASON FOR EXAM: Female, 61 years old. WEIGHT LOSS TECHNIQUE: 3 view(s) of the ribs. COMPARISON: None. FINDINGS: COPD/coarse lung markings. Aorta calcified. Spinal fixation hardware. Left upper quadrant surgical clips. No acute fracture, dislocation or osseous destruction. Osteopenia/osteoporosis. No significant soft tissue swelling. RAD/Ribs Unil 2V No CXR IMPRESSION: Ribs intact Electronically Signed: Damir Miller DO at 11:58 EDT Tel , Service support ,
[2021-05-18 14:54] LABS: Absolute Lymphocyte Count 2.79 X10^3/uL (0.83-4.51); Absolute Neutrophil Count 10.1 X10^3/uL (2.0-7.7); Basophil# 0.06 X10^3/uL; Basophil% 0.4 % (0-1); Eosinophil# 0.06 X10^3/uL; Eosinophils% 0.4 % (0-5); Lymphocyte # 2.79 X10^3/ul (0.83-4.51); Lymphocyte % 19.8 % (19-41); Mean Corp Hgb Conc 33.3 g/dL (32-36); Mean Corpuscular Hgb 31.7 pg (27.0-32.0); Mean Corpuscular Volume 95.2 fL (81-99); Mean Platelet Vol. 9.3 fl (6.2-12.0); Monocyte# 0.86 X10^3/uL; Monocyte% 6.1 % (0-10); NRBC Flagged by Analyzer 0 % (0-5); Neutrophil # 10.08 X10^3/uL (2.7-7.7); Neutrophil % 71.8 % (47-70); Platelet Count 525 K/mm3 (150-450); RBC Distribution Width CV 15.4 % (11.6-14.6); RBC Distribution Width SD 53.6 fl (35.1-43.9); RET-HE 39.8 pg (30-35); Red Blood Count 3.78 M/mm3 (4.2-5.4); White Blood Count 14.1 K/mm3 (4.4-11.0)
[2021-05-18 15:21] LABS: Hemoglobin A1c 5.6 % (3.8-5.6)
[2021-05-18 15:47] LABS: ALB/GLOB Ratio 0.6 RATIO (0.9-2.4); AST(SGOT) 12 U/L (15-37); Alanine Aminotransfer ALT/SGPT 20 U/L (13-56); Albumin, Serum 2.6 g/dL (3.2-5.0); Alkaline Phosphatase 113 U/L (45-117); Anion Gap 13 (5-15); BUN 15 mg/dL (7-18); BUN/Creat Ratio 10.6 RATIO (10-20); Calcium,Total 9.1 mg/dL (8.5-10.1); Chloride 91 mmol/L (98-107); Creatinine, Serum 1.41 mg/dL (0.55-1.02); EST Glomerular Filtration Rate 40 mL/min (>60); Est Glom Filt Rate - Afr Amer 49 mL/min (>60); Ferritin 1609 ng/mL (8-252); Globulin 4.6 g/dL (2.2-4.2); Glucose 111 mg/dL (74-106); Iron 60 ug/dL (50-170); Iron Binding Capacity,Total 129 ug/dL (250-450); PERCENT IRON SATURATION 46.5 % (15.0-55.0); Potassium 2.7 mmol/L (3.5-5.1); Protein, Total 7.2 g/dL (6.4-8.2); Sodium Level 135 mmol/L (136-145); Thyroid Stim Hormone (TSH) 1.96 uIU/mL (0.358-3.74)
== END ==
PROVIDERS: PCP Family Medicine; Referring Provider Family Medicine; Visit Provider Family Medicine
DX: R07.81 Pleurodynia (principal); K21.9 Gastro-esophageal reflux disease without esophagitis; R63.4 Abnormal weight loss; D64.9 Anemia, unspecified; E87.6 Hypokalemia; N39.0 Urinary tract infection, site not specified; E11.22 Type 2 diabetes mellitus with diabetic chronic kidney disease; I12.9 Hypertensive chronic kidney disease with stage 1 through stage 4 chronic kidney disease, or unspecified chronic kidney disease; N18.30 Chronic kidney disease, stage 3 unspecified; E78.5 Hyperlipidemia, unspecified; F32.9 Major depressive disorder, single episode, unspecified; F41.9 Anxiety disorder, unspecified; G43.909 Migraine, unspecified, not intractable, without status migrainosus; G47.33 Obstructive sleep apnea (adult) (pediatric); G89.29 Other chronic pain; M79.7 Fibromyalgia; J44.9 Chronic obstructive pulmonary disease, unspecified; M19.90 Unspecified osteoarthritis, unspecified site; Z79.01 Long term (current) use of anticoagulants; Z79.899 Other long term (current) drug therapy; Z87.891 Personal history of nicotine dependence
CPT/HCPCS: 36415; 71100; 74176; 80048; 80053; 81001; 82728; 83036; 83540; 83550; 84443; 85025; 85045; 87086; J7050; A4216

== ENCOUNTER 2021-05-18 16:58 | Emergency (ER) | payer MEDICARE, MEDICAID, SELFPAY ==
[2021-05-18 17:01] VITALS: BP 105/74; PULSE 97; RESP 18; TEMP 36.5; O2SAT 99; BMI 22.1
--- NOTE | 2021-05-18 17:25 | CT_ITS ---
STUDY: CT ABDOMEN AND PELVIS WITHOUT CONTRAST REASON FOR EXAM: Female, 61 years old. LLQ pain RADIATION DOSAGE (If Supplied By Facility): CTDIvol = ( 6.04 ) mGy, DLP = ( 286.91 ) mGycm TECHNIQUE: Transaxial images were obtained from the dome of the diaphragm to the symphysis pubis without oral contrast, and without intravenous contrast. Sagittal and coronal images were reconstructed. Individualized dose optimization techniques were used for this CT. COMPARISON: 03/07/2021 FINDINGS: The visualized lung bases are unremarkable. The visualized portions of the heart are within normal limits. Normal liver. Normal gallbladder and extrahepatic biliary system. Normal spleen. Normal pancreas. Normal bilateral adrenal glands. Normal right kidney. Normal left kidney. Prior surgery of the stomach. Small hiatal hernia. Normal small intestine. Mild fecal retention in the distal colon. The appendix is visualized and appears normal. Calcified abdominal aorta. Normal inferior vena cava. Normal retroperitoneum. Normal urinary bladder. Normal abdominal wall. Degenerative vertebral changes. Grade 1 spondylolisthesis at L2-3 and grade 1 ret[address]isthesis at L4-5. CT/Abdomen/Pelvis without Cont IMPRESSION: Small hiatal hernia. Mild fecal retention in the distal colon. Electronically Signed: Damon Mendez DO at 19:13 EDT Tel [phone], Service support ,
--- NOTE | 2021-05-18 17:26 | EX.ED.DYSGE1 ---
HPI History of Present Illness Chief Complaint: Abn Labs Informant: patient and family Narrative Narrative: Patient seen by PCP today for routine follow-up after recent longterm discharge. Lab work was obtained and potassium was found to be low at 2.7. Patient is on Lasix and admits that she has not been taking her potassium supplement recently. She is had problems tolerating the tablets as well as the liquid potassium. She reportedly was written for a new type of potassium to take orally today. She did take a dose around noon today when she left the doctor's office. Patient's potassium returned low at 2.7 and they received a phone call to come to the emergency room for IV replacement. Patient does report some left rib pain and had x-rays performed today. She also is complaining of left lower quadrant abdominal pain today. No fever or chills. [facility] Medical History Acute respiratory failure with hypoxia and hypercapnia Anemia Anxiety Arthritis Back pain Cardiology follow-up encounter Cervical radiculitis Chest pain Chronic back pain CKD (chronic kidney disease) stage 3, GFR 30-59 ml/min COPD (chronic obstructive pulmonary disease) CPAP (continuous positive airway pressure) dependence Depression Diabetes Diabetes mellitus, type II Elevated troponin Emphysema, unspecified Fibromyalgia Former smoker Gastric reflux History of echocardiogram History of hiatal hernia History of pain when walking History of renal disease History of stress test Hyperlipidemia Hypertension Injury of back Migraine headache On home oxygen therapy LATA (obstructive sleep apnea) Shortness of breath on exertion Sleep apnea Smoker Stage 2 moderate COPD by GOLD classification Thrombocytopenia Tobacco use Walker as ambulation aid Wears glasses Wears partial dentures Home Medications allopurinol 300 mg PO DAILY 07/30/18 [History Last Taken Unknown] bupropion HCl (smoking deter) 150 mg PO DAILY 07/09/19 [History Last Taken Unknown] cholecalciferol (vitamin D3) 1,000 unit PO DAILY 07/09/19 [History Last Taken Unknown] docusate sodium 100 mg PO PRN PRN 07/09/19 [History Last Taken Unknown] ferrous sulfate 325 mg PO DAILY 07/09/19 [History Last Taken Unknown] lamotrigine 100 mg PO DAILY 07/09/19 [History Last Taken Unknown] sertraline 100 mg PO DAILY 07/09/19 [History Last Taken Unknown] acetaminophen [Tylenol] 650 mg PO Q4H PRN PRN #30 tab 03/19/21 [Rx Last Taken Unknown] albuterol sulfate 2.5 mg INHALATION Q2H PRN PRN #3 ml 03/19/21 [Rx Last Taken Unknown] apixaban [Eliquis] 5 mg PO BID #0 tab 03/19/21 [Rx Last Taken Unknown] sennosides-docusate sodium [Stool Softener-Stimulant Laxat] 2 tab PO BID PRN PRN #0 tab 03/19/21 [Rx Last Taken Unknown] bisacodyl 5 mg tablet,delayed release 20 mg PO ONCE tab 05/12/21 [History Last Taken Unknown] furosemide 40 mg tablet 40 mg PO DAILY tab 05/12/21 [History Last Taken Unknown] ondansetron HCl 4 mg tablet 4 mg PO Q6H PRN 05/12/21 [History Last Taken Unknown] polyethylene glycol 3350 17 gram/dose oral powder 17 g PO DAILY 05/12/21 [History Last Taken Unknown] potassium chloride 20 mEq/15 mL oral liquid 40 meq PO BID ml 05/12/21 [History Last Taken Unknown] sertraline 50 mg tablet 50 mg PO DAILY 05/12/21 [History Last Taken Unknown] simvastatin 20 mg tablet 20 mg PO DAILY 05/12/21 [History Last Taken Unknown] trazodone 100 mg tablet 100 mg PO QHS tab 05/12/21 [History Last Taken Unknown] Nebulizer #1 ea 05/16/21 [Rx Last Taken Unknown] Pulse Oximeter #1 ea 05/16/21 [Rx Last Taken Unknown] aripiprazole 10 mg PO DAILY 05/18/21 [History Last Taken Unknown] benztropine 0.5 mg PO TID 05/18/21 [History Last Taken Unknown] nitrofurantoin monohyd/m-cryst [Macrobid] 100 mg PO Q12H 5 Days #10 cap 05/18/21 [Rx Last Taken Unknown] umeclidinium-vilanterol [Anoro Ellipta] 1 inh INHALATION DAILY 05/18/21 [History Last Taken Unknown] Allergy/AdvReac Type Severity Reaction Status Date / Time No Known Allergies Allergy Verified 05/18/21 16:59 Family History Mother Hypertension Father Hypertension Diabetes Surgical History Cervical vertebral fusion history EGD with ph probe (~12/09/17) History of colonoscopy (~12/05/17) History of repair of hiatal hernia History of shoulder surgery History of tubal ligation Hx of cholecystectomy Hx of hernia repair Social History household members: none Smoking Status: Former smoker quit date: 07/27/17 alcohol intake: never substance use type: does not use caffeine: No what type of physical activity do you participate in: none ROS ROS ED Constitutional Constitutional ED: Denies chills or fever(s) Eyes Eyes: Denies change in vision ENT ENT ED: Denies sore throat Cardiovascular Cardiovascular: Reports chest pain and other Details: Left rib pain Respiratory/Chest Respiratory/Chest: Denies cough or dyspnea Gastrointestinal Gastrointestinal: Reports abdominal pain and other Details: Poor appetite ; Denies diarrhea, nausea or vomiting Genitourinary Genitourinary ED: Denies dysuria Musculoskeletal Musculoskeletal: Denies back pain Integumentary Denies rash Neurologic Neurologic: Denies headache(s) or weakness Allergic/Immunologic Allergic/Immunologic ED: Denies urticaria EXAM Physical Exam Const Vital Signs: 05/18/21 17:01 05/18/21 17:42 05/18/21 19:08 Temperature 97.7 F L Temperature Source Temporal Pulse Rate 97 82 Respiratory Rate 18 10 L Respiratory Effort Normal Non-Labored Respiratory Pattern Normal Blood Pressure 105/74 113/55 L Blood Pressure Mean 84 74 Pulse Ox 99 100 Oxygen Delivery Method Nasal Cannula Nasal Cannula Oxygen Flow Rate (L/min) 2 2 05/18/21 22:04 Temperature Temperature Source Pulse Rate 88 Respiratory Rate 20 H Respiratory Effort Respiratory Pattern Blood Pressure 100/63 Blood Pressure Mean 75 Pulse Ox Oxygen Delivery Method Oxygen Flow Rate (L/min) Positive well nourished and well developed General Appearance ED: well developed HEENT Reports normocephalic and head/scalp atraumatic Eyes PERRL and EOMs intact bilaterally Neck supple Chest Wall inspection of chest normal and palpation of chest normal Resp normal respiratory effort and clear to auscultation bilaterally Cardio regular rate and regular rhythm GI Palpation: soft and tender LLQ; Negative for guarding or rebound tenderness present Extremity normal to inspection Neuro oriented x3 and no sensory deficits noted Sensorium / Orientation: alert Motor Exam: strength 5/5 throughout Psych mental status grossly normal Skin no rashes or lesions noted MDM MDM MDM Narrative Medical decision making narrative: Patient placed on laborer orchard. Lab work and urinalysis obtained. CT flank ordered. IV potassium ordered. Lab Data Attestation: I reviewed the patient's lab results. Labs: Laboratory Results - last 24 hr 05/18/21 05/18/21 05/18/21 17:45 17:50 17:50 WBC 12.2 H RBC 3.75 L Hgb 11.7 L Hct 34.9 L MCV 93.1 MCH 31.2 MCHC 33.5 RDW Std Deviation 50.8 H RDW Coeff of Suki 15.1 H Plt Count 464 H MPV 8.8 Immature Gran % (Auto) 1.400 H Neut % (Auto) 65.3 Lymph % (Auto) 24.7 [place] % (Auto) 7.6 Eos % (Auto) 0.5 Baso % (Auto) 0.5 Absolute Neuts (auto) 8.0 H Absolute Lymphs (auto) 3.02 Nucleated RBC % 0 Sodium 133 L Potassium 2.6 L* Chloride 93 L Carbon Dioxide 31.0 Anion Gap 9 BUN 16 Creatinine 1.41 H Estim Creat Clear Calc 33.14 Est GFR (MDRD) Af Amer 49 L Est GFR (MDRD) Non-Af 40 L BUN/Creatinine Ratio 11.3 Glucose 123 H Calcium 9.0 Urine Color Yellow Urine Clarity Sl. Cloudy Urine pH 8.0 Ur Specific [place] 1.010 Urine Protein Negative Urine Glucose (UA) Normal Urine Ketones Negative Urine Occult Blood 10 H Urine Nitrite Positive H Urine Bilirubin Negative Urine Urobilinogen Normal Ur Leukocyte Esterase 500 H Urine RBC 0 SEEN Urine WBC 25-50 SEEN Ur Squamous Epith Cells 0 SEEN Urine Bacteria 1+ Urine Mucus 0 SEEN Radiography Diagnostic Testing: Clinical Impression(s) from Imaging Studies Abdomen/Pelvis CT 05/18/21 17:25 IMPRESSION: Small hiatal hernia. Mild fecal retention in the distal colon. Electronically Signed: Damon Mendez DO at 19:13 EDT Tel [phone], Service support , Treatment and Re-Evaluation Comments:: Patient's lab work is reviewed. White count is slightly elevated at 12.2. Potassium is low at 2.6. Urinalysis does reveal sign of infection with 25-50 white cells and 1+ bacteria. Nitrites are positive. Urine culture is sent. She is given a dose of Rocephin. Patient was given new oral potassium pills today. She has received 40 mEq through the IV here. She we discharged home with a prescription for Macrobid. Discharge Plan Triage Chief Complaint: Abn Labs ED Provider: Mercedes Roman Dx/Rx/DC Orders Clinical Impression: Hypokalemia, UTI (urinary tract infection) Instructions: ED Hypokalemia, ED CYSTITIS Female Adult Prescriptions: New nitrofurantoin monohyd/m-cryst [Macrobid] 100 mg capsule 100 mg PO Q12H 5 Days Qty: 10 RF: 0 No Action potassium chloride 20 mEq/15 mL liquid 40 meq PO BID RF: 0 sertraline 50 mg tablet 50 mg PO DAILY RF: 0 bisacodyl [Dulcolax (bisacodyl)] 5 mg tablet,delayed release (DR/EC) 20 mg PO ONCE RF: 0 polyethylene glycol 3350 [Miralax] 17 gram/dose powder 17 g PO DAILY RF: 0 ondansetron HCl [Zofran] 4 mg tablet 4 mg PO Q6H PRN (Reason: Nausea) RF: 0 simvastatin 20 mg tablet 20 mg PO DAILY RF: 0 (DME) Nebulizer See Rx Instructions .ROUTE .MEDSUPPLY Qty: 1 RF: 0 (DME) Pulse Oximeter See Rx Instructions .ROUTE .MEDSUPPLY Qty: 1 RF: 0 trazodone 100 mg tablet 100 mg PO QHS RF: 0 allopurinol 100 MG tablet 300 mg PO DAILY RF: 0 sertraline 100 MG tablet 100 mg PO DAILY RF: 0 ferrous sulfate 325 MG tablet 325 mg PO DAILY RF: 0 lamotrigine 100 MG tablet 100 mg PO DAILY RF: 0 cholecalciferol (vitamin D3) 1,000 UNIT tablet 1,000 unit PO DAILY RF: 0 bupropion HCl (smoking deter) 150 MG tablet extended release 12 hr 150 mg PO DAILY RF: 0 docusate sodium 100 MG capsule 100 mg PO PRN PRN (Reason: Constipation) RF: 0 furosemide 40 mg tablet 40 mg PO DAILY RF: 0 sennosides-docusate sodium [Stool Softener-Stimulant Laxat] 8.6-50 mg Tablet 2 tab PO BID PRN PRN (Reason: Constipation) Qty: 0 RF: 0 acetaminophen [Tylenol] 325 mg Tablet 650 mg PO Q4H PRN PRN (Reason: Fever, pain 1-05/15) Qty: 30 RF: 0 albuterol sulfate 2.5 mg /3 mL (0.083 %) Solution For Nebulization 2.5 mg inhalation Q2H PRN PRN (Reason: Dyspnea, wheezing) Qty: 3 RF: 0 Eliquis 5 mg Tablet 5 mg PO BID Qty: 0 RF: 0 Anoro Ellipta 62.5-25 mcg/actuation blister with device 1 inh inhalation DAILY RF: 0 benztropine 0.5 mg tablet 0.5 mg PO TID RF: 0 aripiprazole 10 mg tablet 10 mg PO DAILY RF: 0 Primary Care Provider: Hua Mosher Referrals: Hua Mosher MD [Primary Care Provider] - 1 Week Disposition Disposition: Home, Self Care
[2021-05-18 18:00] LABS: Mucous, Urine 0 SEEN /hpf (<or=2+); Red Blood Cells-Urine 0 SEEN /hpf (0-5); Squamous Epithelial Cells - UA 0 SEEN /hpf (5-10)
[2021-05-18 18:02] LABS: Absolute Lymphocyte Count 3.02 X10^3/uL (0.83-4.51); Basophil# 0.06 X10^3/uL; Basophil% 0.5 % (0-1); Eosinophil# 0.06 X10^3/uL; Eosinophils% 0.5 % (0-5); Hematocrit 34.9 % (37-47); Hemoglobin 11.7 g/dL (12.0-15.0); Lymphocyte # 3.02 X10^3/ul (0.83-4.51); Lymphocyte % 24.7 % (19-41); Mean Corp Hgb Conc 33.5 g/dL (32-36); Mean Corpuscular Hgb 31.2 pg (27.0-32.0); Mean Corpuscular Volume 93.1 fL (81-99); Mean Platelet Vol. 8.8 fl (6.2-12.0); Monocyte# 0.93 X10^3/uL; Monocyte% 7.6 % (0-10); NRBC Flagged by Analyzer 0 % (0-5); Neutrophil % 65.3 % (47-70); Platelet Count 464 K/mm3 (150-450); RBC Distribution Width CV 15.1 % (11.6-14.6); RBC Distribution Width SD 50.8 fl (35.1-43.9); Red Blood Count 3.75 M/mm3 (4.2-5.4); White Blood Count 12.2 K/mm3 (4.4-11.0)
[2021-05-18 18:27] LABS: Color, Urine Yellow (Yellow); Glucose, Dipstick Normal (Normal); Ketone-Dipstick Negative (Negative); Leukocyte Esterase-Dipstick 500 /ul (Negative); Nitrite-Dipstick Positive (Negative); Occult Blood-Urine 10 /ul (Negative); Protein-Dipstick Negative (Negative); Urine Bilirubin Dipstick Negative (Negative); Urine Clarity Sl. Cloudy (Clear); Urine Urobilinogen Normal (Normal)
[2021-05-18 18:32] LABS: Anion Gap 9 (5-15); BUN 16 mg/dL (7-18); BUN/Creat Ratio 11.3 RATIO (10-20); Chloride 93 mmol/L (98-107); Creatinine, Serum 1.41 mg/dL (0.55-1.02); EST Glomerular Filtration Rate 40 mL/min (>60); Est Glom Filt Rate - Afr Amer 49 mL/min (>60); Estimated Creatinine Clearance 33.14 ml/min; Glucose 123 mg/dL (74-106); Potassium 2.6 mmol/L (3.5-5.1); Sodium Level 133 mmol/L (136-145)
[2021-05-18 18:33] LABS: Bacteria 1+ /hpf (None Seen); White Blood Cells 25-50 SEEN /hpf (0-5)
[2021-05-18] MEDS: Potassium Chloride 10mEq/100mL 10 MEQ/100 ML IV.SOLN. 100 MEQ IV BOLUS ×4 (18:38→21:38)
[2021-05-18 19:08] VITALS: BP 113/55; PULSE 82; RESP 10; O2SAT 100
[2021-05-18] MEDS: Ceftriaxone 1 GM/50 ML BAG IV (19:18)
[2021-05-18 22:04] VITALS: BP 100/63; PULSE 88; RESP 20
[2021-05-18 23:15] VITALS: BP 109/71; PULSE 68; RESP 16; O2SAT 96
== END 2021-05-18 23:20 | disposition home or self-care (01) ==
PROVIDERS: Emergency Provider Emergency Medicine; PCP Family Medicine
DX: E87.6 Hypokalemia (principal); N39.0 Urinary tract infection, site not specified; E11.22 Type 2 diabetes mellitus with diabetic chronic kidney disease; I12.9 Hypertensive chronic kidney disease with stage 1 through stage 4 chronic kidney disease, or unspecified chronic kidney disease; N18.30 Chronic kidney disease, stage 3 unspecified; E78.5 Hyperlipidemia, unspecified; F32.9 Major depressive disorder, single episode, unspecified; F41.9 Anxiety disorder, unspecified; G43.909 Migraine, unspecified, not intractable, without status migrainosus; G47.33 Obstructive sleep apnea (adult) (pediatric); G89.29 Other chronic pain; M79.7 Fibromyalgia; D64.9 Anemia, unspecified; J44.9 Chronic obstructive pulmonary disease, unspecified; K21.9 Gastro-esophageal reflux disease without esophagitis; M19.90 Unspecified osteoarthritis, unspecified site; Z79.01 Long term (current) use of anticoagulants; Z79.899 Other long term (current) drug therapy; Z87.891 Personal history of nicotine dependence
CPT/HCPCS: 74176; 80048; 81001; 85025; 87077; 87086; 87088; 87186; 96365; 96366; 96368; 99283; J7050; A4216

== ENCOUNTER 2021-05-24 08:16 | Day surgery (SDC) | payer MEDICARE, MEDICAID, SELFPAY ==
[2021-05-24] VITALS (7 sets, daily range): BP systolic 99–113; BP diastolic 69–78; PULSE 91–109; RESP 16–18; TEMP 36.2–36.6; O2SAT 93–100; BMI 22.6
[2021-05-24] MEDS: Lactated Ringers 1,000 ML 100 ML IV (08:45)
--- NOTE | 2021-05-24 09:10 | HP.PCM_ITS ---
History and Physical Date of Admission: 05/24/21 Intake Vital Signs 04/13/21 09:09 Weight: 128 lb 5 oz BP 102/68 Blood Pressure Location Rt brachial Position Sitting Respiration 18 Pulse 94 Pulse Source NIBP Temp 98.1 F Temp Source Temporal Pulse Oximetry (%) 99 Oxygen Delivery Method room air Intake Visit Reasons: INPATIENT F/U GI BLEED Chief Complaint: constipation/ nausea Speech Pathologist Assistant Required: No Is patient in pain?: No Allergies No Known Allergies Allergy (Verified 04/13/21 08:56) Medications trazodone 200 mg PO QHS 08/23/16 [History Confirmed 04/13/21] gabapentin 300 mg PO 0800,1200 11/28/17 [History Confirmed 04/13/21] allopurinol 300 mg PO DAILY 07/30/18 [History Confirmed 04/13/21] Potassium Chloride 2 tablet PO BID 07/09/19 [History Confirmed 04/13/21] bupropion HCl (smoking deter) 150 mg PO DAILY 07/09/19 [History Confirmed 04/13/21] cholecalciferol (vitamin D3) 1,000 unit PO DAILY 07/09/19 [History Confirmed 04/13/21] docusate sodium 100 mg PO PRN PRN 07/09/19 [History Confirmed 04/13/21] ferrous sulfate 325 mg PO DAILY 07/09/19 [History Confirmed 04/13/21] furosemide 40 mg PO 0800 07/09/19 [History Confirmed 04/13/21] lamotrigine 100 mg PO DAILY 07/09/19 [History Confirmed 04/13/21] sertraline 150 mg PO DAILY 07/09/19 [History Confirmed 04/13/21] umeclidinium 62.5 mcg-vilanterol 25 mcg/actuation powdr for inhalation 1 inh INHALATION DAILY #60 ea 12/17/19 [Rx Confirmed 04/13/21] acetaminophen [Tylenol] 650 mg PO Q4H PRN PRN #30 tab 03/19/21 [Rx Confirmed 04/13/21] albuterol sulfate 2.5 mg INHALATION Q2H PRN PRN #3 ml 03/19/21 [Rx Confirmed 04/13/21] apixaban [Eliquis] 5 mg PO BID #0 tab 03/19/21 [Rx Confirmed 04/13/21] sennosides-docusate sodium [Stool Softener-Stimulant Laxat] 2 tab PO BID PRN PRN #0 tab 03/19/21 [Rx Confirmed 04/13/21] nystatin 500,000 unit PO 4X/DAY #0 ml 03/21/21 [Rx Confirmed 04/13/21] atorvastatin 10 mg tablet 10 mg PO DAILY 04/13/21 [History Confirmed 04/13/21] Is last menstrual period known: No Post menopausal: Yes Patient : No PFSH Medical History Acute respiratory failure with hypoxia and hypercapnia Anxiety Cervical radiculitis Chest pain Chronic back pain CKD (chronic kidney disease) stage 3, GFR 30-59 ml/min COPD (chronic obstructive pulmonary disease) CPAP (continuous positive airway pressure) dependence Depression Diabetes mellitus, type II Elevated troponin Fibromyalgia Hyperlipidemia Hypertension LATA (obstructive sleep apnea) Pulmonary embolism Smoker Stage 2 moderate COPD by GOLD classification Thrombocytopenia Tobacco use Surgical History Cervical vertebral fusion history EGD with ph probe (~12/09/17) History of colonoscopy (~12/05/17) History of repair of hiatal hernia History of shoulder surgery History of tubal ligation Hx of cholecystectomy Family History Mother Hypertension Father Hypertension Diabetes Social History household members: none Smoking Status: Current every day smoker tobacco type: cigarettes alcohol intake: never substance use type: does not use caffeine: No what type of physical activity do you participate in: none HPI HPI HPI: MARGARITA JOSHI, is a 61 F who presents to the office today for follow-up from hospitalization. The patient was hospitalized with GI bleeding and colitis. Patient was septic and hypotensive and then had aspiration pneumonia. Patient currently reports no abdominal pain or blood per rectum. She does report she is still having nausea and dry heaving but no abdominal pain. She is able to tolerate liquids. ROS General General: No weight change or fatigue HEENT HEENT: No difficulty swallowing Endo Endocrine: No thyroid disease Musc Musculoskeletal: No back problems or arthritis Cardio Cardiovascular: No pacemaker, heart disease, atrial fibrillation, high blood pressure, heart attack, heart stent, palpitations or chest pain Psych Psychiatric: No depression or anxiety Resp Respiratory: No shortness of breath, No cough, No COPD, No asthma and No emphysema Gastro Gastrointestinal: No abdominal pain, Yes nausea or vomiting, No diarrhea, No constipation, No blood in stool, No acid reflux, No hemorrhoids, No ulcers, No gallbladder problem and No black,tarry stools Shamar Hematologic: No blood thinners Exam Const General: cooperative Orientation: alert and oriented x3 HENMT Head: normal to inspection Neck Neck: normal visual inspection and full ROM Chest Chest palpation & inspection: normal inspection of the chest Resp Effort & Inspection: normal respiratory effort Auscultation: clear to auscultation bilaterally Cardio Rate: regular rate Rhythm: regular rhythm GI Inspection: non-distended Palpation: soft and nontender Skin General: no rashes or lesions noted Neuro General: patient alert and patient oriented x3 Extrem General: full ROM Psych Appearance: grossly normal Mental Status: mental status grossly normal Assessment and Plan Assessment and Plan (1) Ischemic colitis: Status: Resolved Plan - Dr. Jason Clemente MD: Patient was recently hospitalized with presumed ischemic versus infectious colitis. She reports no blood per rectum or abdominal pain currently but I do recommend repeat colonoscopy. Her last colonoscopy was 6 years ago. I would recommend holding Eliquis for 2 days prior to colonoscopy and bowel prep instructions will be given to her current assisted living facility. I explained endoscopy in detail to the patient. I explained the risks including but not limited to stroke or heart attack with anesthesia, perforation of the GI tract, bleeding, infection. I explained that any of these could necessitate further emergency surgery. The patient understands and all questions were answered sufficiently. The patient wishes to proceed with procedure. Jason Clemente MD Pager: [facility] [address] [place] [address], [address] [place] [address] Office:
[2021-05-24 09:15] LABS: Bedside Glucose 103 mg/dL (70-110)
--- NOTE | 2021-05-24 09:55 | OP.COLON_ITS ---
Patient Name: Aism Fisher Procedure Date: 05/24/2021 9:18 AM Date of : 1960 Age: 61 Procedure: Colonoscopy Indications: Follow-up of acute ischemic colitis Providers: Jason Clemente MD Medicines: Monitored Anesthesia Care Patient Profile: Last Colonoscopy: more than 3 years ago. Complications: No immediate complications. Procedure: Pre-Anesthesia Assessment: - Prior to the procedure, a History and Physical was performed, and patient medications and allergies were reviewed. The patient's tolerance of previous anesthesia was also reviewed. The risks and benefits of the procedure and the sedation options and risks were discussed with the patient. All questions were answered, and informed consent was obtained. Prior Anticoagulants: The patient last took Eliquis (apixaban) 2 days prior to the procedure. After reviewing the risks and benefits, the patient was deemed in satisfactory condition to undergo the procedure. After I obtained informed consent, the scope was passed under direct vision. Throughout the procedure, the patient's blood pressure, pulse, and oxygen saturations were monitored continuously. The pediatric colonoscope was introduced through the anus and advanced to the cecum, identified by appendiceal orifice and ileocecal valve. The colonoscopy was technically difficult and complex due to poor endoscopic visualization. The patient tolerated the procedure well. The quality of the bowel preparation was adequate to identify polyps 6 mm and larger in size. Scope In: 9:26:56 AM Scope Withdrawal Time 0 hours 3 minutes 44 seconds Scope Out: 9:52:29 AM Total Procedure Duration Time 0 hours 25 minutes 33 seconds Findings: The entire examined colon appeared normal on direct and retroflexion views. Impression: - The entire examined colon is normal on direct and retroflexion views. - No specimens collected. Recommendation: - Discharge patient to home. - Resume previous diet. - Continue present medications. - Resume Eliquis (apixaban) at prior dose today. - Repeat colonoscopy in 10 years for screening purposes. Procedure Code(s): --- Professional --- 08182, Colonoscopy, flexible; diagnostic, including collection of specimen(s) by brushing or washing, when performed (separate procedure) Diagnosis Code(s): --- Professional --- K55.039, Acute (reversible) ischemia of large intestine, extent unspecified CPT copyright 2017 [employer]. All rights reserved. The codes documented in this report are preliminary and upon manager mortgage review may be revised to meet current compliance requirements. Jason Clemente MD 05/24/2021 9:54:44 AM This report has been signed electronically. Number of Addenda: 0 Note Initiated On: 05/24/2021 9:18 AM
--- NOTE | 2021-05-24 09:56 | OP.CCLET_ITS ---
05/24/2021 Hua Mosher [address] [place] [address] Re : Colonoscopy procedure for Asim Fisher Dear Dr. Mosher This procedure was performed on Monday, May 24, 2021. My impressions and recommendations are as follows: Impressions : - The entire examined colon is normal on direct and retroflexion views. - No specimens collected. Recommendations : - Discharge patient to home. - Resume previous diet. - Continue present medications. - Resume Eliquis (apixaban) at prior dose today. - Repeat colonoscopy in 10 years for screening purposes. My findings are described in the full procedure note, which is enclosed. If I can be of further assistance, please feel free to contact me at Doctor phone number(s): , Work: . Sincerely, Jason Clemente MD 05/24/2021 9:54:44 AM This report has been signed electronically.
== END 2021-05-24 10:57 ==
LOC: EN 08:18 → AC 08:20
PROVIDERS: PCP Family Medicine; Referring Provider Family Medicine; Visit Provider Surgery
PROC: 0DJD8ZZ Inspection of Lower Intestinal Tract, Via Natural or Artificial Opening Endoscopic (ICD-10-PCS; CPT 45378; principal; 2021-05-24 08:55)
DX: K55.039 Acute (reversible) ischemia of large intestine, extent unspecified (principal); E11.22 Type 2 diabetes mellitus with diabetic chronic kidney disease; E78.5 Hyperlipidemia, unspecified; F32.A Depression, unspecified; F41.9 Anxiety disorder, unspecified; I12.9 Hypertensive chronic kidney disease with stage 1 through stage 4 chronic kidney disease, or unspecified chronic kidney disease; N18.30 Chronic kidney disease, stage 3 unspecified; J44.9 Chronic obstructive pulmonary disease, unspecified; M79.7 Fibromyalgia; G89.29 Other chronic pain; G47.33 Obstructive sleep apnea (adult) (pediatric); Z86.711 Personal history of pulmonary embolism; Z78.0 Asymptomatic menopausal state; Z79.01 Long term (current) use of anticoagulants; Z79.899 Other long term (current) drug therapy; F17.210 Nicotine dependence, cigarettes, uncomplicated
CPT/HCPCS: 45378; 82962; J7120; J2405

== ENCOUNTER → 2021-06-01 12:48 | Outpatient (CLI) | payer MEDICARE, MEDICAID, SELFPAY ==
--- NOTE | 2021-06-01 12:51 | RAD_ITS ---
STUDY: X-RAY - LUMBOSACRAL SPINE REASON FOR EXAM: Female, 61 years old. LEFT LEG PAIN TECHNIQUE: 7 view(s) of the lumbosacral spine were obtained. COMPARISON: 05/20/2020 FINDINGS: Normal lumbar lordosis. Mild levoscoliosis centered at L2. 5 mm of anterolisthesis of L2 on L3 which is unchanged. There is no change in the appearance on the flexion-extension views.. There is multilevel endplate spondylosis of the lumbar vertebrae. There is multi-level degenerative disc disease with multi-level disc space narrowing. Normal bilateral sacral ala, sacroiliac joints, and visualized sacrum. Normal visualized soft tissue structures. RAD/L/S Spine Comp/w Bending Views IMPRESSION: No change from 05/20/2020. MRI may be useful. Electronically Signed: Juan Jose Dorsey MD at 16:05 EDT Tel , Service support ,
--- NOTE | 2021-06-01 13:00 | RAD_ITS ---
STUDY: X-RAY - PELVIS AND LEFT HIP REASON FOR EXAM: Female, 61 years old. LEG PAIN TECHNIQUE: 3 views of the pelvis and hip. COMPARISON: 09/16/2020 FINDINGS: There is a non-specific bowel gas pattern. Normal visualized soft tissue structures. Normal bilateral iliac wings, sacroiliac joints and visualized sacrum. Normal bilateral superior and inferior pubic rami. Normal pubic symphysis. Normal bilateral ischial tuberosities. Acute impacted fracture of the subcapital femoral neck. Normal acetabulum. Normal hip joint. RAD/HIP, UNI W/ Pelvis 2-3 Views IMPRESSION: Acute impacted fracture of the subcapital femoral neck. Electronically Signed: Juan Jose Dorsey MD at 13:32 EDT Tel , Service support ,
[2021-06-01 15:29] LABS: Anion Gap 10 (5-15); BUN 10 mg/dL (7-18); BUN/Creat Ratio 8.6 RATIO (10-20); Calcium,Total 8.9 mg/dL (8.5-10.1); Chloride 102 mmol/L (98-107); Creatinine, Serum 1.16 mg/dL (0.55-1.02); EST Glomerular Filtration Rate 50 mL/min (>60); Est Glom Filt Rate - Afr Amer 61 mL/min (>60); Glucose 133 mg/dL (74-106); Potassium 3.9 mmol/L (3.5-5.1); Sodium Level 139 mmol/L (136-145)
== END ==
PROVIDERS: PCP Family Medicine; Referring Provider Family Medicine; Visit Provider Family Medicine
DX: M79.605 Pain in left leg (principal); E87.6 Hypokalemia
CPT/HCPCS: 36415; 72114; 73502; 80048

== ENCOUNTER 2021-06-01 14:40 | Inpatient (IN) | payer MEDICARE, MEDICAID, SELFPAY ==
[2021-06-01] VITALS (9 sets, daily range): BP systolic 100–115; BP diastolic 61–76; PULSE 91–108; RESP 16–18; TEMP 35.8–36.2; O2SAT 94–100; BMI 21.7; BMI 21.9
--- NOTE | 2021-06-01 15:03 | RAD_ITS ---
STUDY: X-RAY CHEST REASON FOR EXAM: Female, 61 years old. injury TECHNIQUE: Single AP portable view of the chest. COMPARISON: 03/11/2021 FINDINGS: Interval removal of the right internal jugular deep venous line. Status post anterior cervical discectomy and fusion lower cervical spine. The lungs are clear and expanded. There is no demonstrated pleural abnormality. Normal size heart. Normal mediastinum and praveen. Normal visualized pulmonary arteries. Normal visualized aortic arch and descending thoracic aorta. Normal visualized thoracic spine. Normal visualized ribs, clavicles, and shoulders. There is no demonstrated abnormality of the visualized soft tissue structures of the upper abdomen. RAD/Chest 1 View (Portable) IMPRESSION: No active disease. Electronically Signed: Juan Jose Dorsey MD at 16:06 EDT Tel , Service support ,
--- NOTE | 2021-06-01 15:03 | EKG12_ITS ---
Test Reason : LOWER EXTREMETY Blood Pressure : / mmHG Vent. Rate : 100 BPM Atrial Rate : 100 BPM P-R Int : 176 ms QRS Dur : 084 ms QT Int : 420 ms P-R-T Axes : 074 042 045 degrees QTc Int : 541 ms Normal sinus rhythm Prolonged QT Abnormal ECG Confirmed by LE BE, BON ([id number]), material expeditor ROSA ROSALES ([id number]) on 06/03/2021 9:27:26 AM Referred By: Confirmed By:BON LUJAN MD
--- NOTE | 2021-06-01 15:05 | EDS_ITS ---
HPI History of Present Illness Chief Complaint: Lower Extremity Injury Informant: patient and family Narrative Narrative: 61-year-old female presents to the emergency department the chief complaint of left hip fracture. Patient went to the primary care physician rosalie stahl and had imaging obtained of her LS spine and of her left hip. Imaging of the left hip demonstrates an impacted subcapital hip fracture. Patient was recently in rehab and has since been discharged home. She is had multiple falls. She had a CT scan on 18 May that did not show a hip fracture. She believes she fell several days ago but her hip has been hurting for months. Patient is supposed to be on Eliquis for pulmonary embolism but stopped it on the for colonoscopy and has not yet resumed. She notes that in these fall she has hit her head but no loss of consciousness. Patient has been able to ambulate but painfully and with use of walker. [facility] Medical History Acute respiratory failure with hypoxia and hypercapnia Anemia Anxiety Arthritis Back pain Cardiology follow-up encounter Cervical radiculitis Chest pain Chronic back pain CKD (chronic kidney disease) stage 3, GFR 30-59 ml/min COPD (chronic obstructive pulmonary disease) CPAP (continuous positive airway pressure) dependence Depression Diabetes Diabetes mellitus, type II Elevated troponin Emphysema, unspecified Fibromyalgia Former smoker Gastric reflux History of echocardiogram History of hiatal hernia History of pain when walking History of renal disease History of stress test Hyperlipidemia Hypertension Injury of back Migraine headache On home oxygen therapy LATA (obstructive sleep apnea) Shortness of breath on exertion Sleep apnea Smoker Stage 2 moderate COPD by GOLD classification Thrombocytopenia Tobacco use Walker as ambulation aid Wears glasses Wears partial dentures Home Medications bupropion HCl (smoking deter) 150 mg PO DAILY 07/09/19 [History Last Taken 06/01/21] docusate sodium 100 mg PO BID 07/09/19 [History Last Taken 06/01/21] ferrous sulfate 325 mg PO DAILY 07/09/19 [History Last Taken 05/31/21] lamotrigine 100 mg PO DAILY 07/09/19 [History Last Taken 06/01/21] sertraline 100 mg PO DAILY 07/09/19 [History Last Taken 06/01/21] albuterol sulfate 2.5 mg INHALATION Q2H PRN PRN #3 ml 03/19/21 [Rx Last Taken 05/23/21] furosemide 40 mg tablet 40 mg PO DAILY tab 05/12/21 [History Last Taken 06/01/21] ondansetron HCl 4 mg tablet 4 mg PO Q6H PRN 05/12/21 [History Last Taken 06/01/21] sertraline 50 mg tablet 50 mg PO DAILY 05/12/21 [History Last Taken 06/01/21] simvastatin 20 mg tablet 20 mg PO DAILY 05/12/21 [History Last Taken 05/31/21] trazodone 100 mg tablet 100 mg PO QHS tab 05/12/21 [History Last Taken 05/31/21] aripiprazole 10 mg PO DAILY 05/18/21 [History Last Taken 06/01/21] benztropine 0.5 mg PO TID 05/18/21 [History Last Taken 06/01/21] nitrofurantoin monohyd/m-cryst [Macrobid] 100 mg PO Q12H 5 Days #10 cap 05/18/21 [Rx Last Taken 06/01/21] umeclidinium-vilanterol [Anoro Ellipta] 1 inh INHALATION DAILY 05/18/21 [History Last Taken 06/01/21] omeprazole 40 mg PO DAILY 05/24/21 [History Last Taken 06/01/21] acetaminophen 1,000 mg PO BID PRN 06/01/21 [History Last Taken 06/01/21] allopurinol 300 mg PO DAILY@1200 06/01/21 [History Last Taken 06/01/21] apixaban [Eliquis] 5 mg PO BID 06/01/21 [History Last Taken Unknown] potassium chloride 40 meq PO BID 06/01/21 [History Last Taken 06/01/21] Allergy/AdvReac Type Severity Reaction Status Date / Time No Known Allergies Allergy Verified 06/01/21 14:51 Family History Mother Hypertension Father Hypertension Diabetes Surgical History Cervical vertebral fusion history EGD with ph probe (~12/09/17) History of colonoscopy (~12/05/17) History of repair of hiatal hernia History of shoulder surgery History of tubal ligation Hx of cholecystectomy Hx of hernia repair Social History household members: none Smoking Status: Former smoker quit date: 07/27/17 alcohol intake: never substance use type: does not use caffeine: No what type of physical activity do you participate in: none ROS ROS ED ROS Narrative Generalized weakness Constitutional Constitutional ED: Denies chills, fever(s) or weight loss Eyes Eyes: Denies change in vision or diplopia ENT ENT ED: Denies ear pain, rhinorrhea or sore throat Cardiovascular Cardiovascular: Denies chest pain, orthopnea, palpitations or racing heartbeat Respiratory/Chest Respiratory/Chest: Denies cough, dyspnea or orthopnea Gastrointestinal Gastrointestinal: Denies abdominal pain, diarrhea, nausea or vomiting Genitourinary Genitourinary ED: Denies dysuria, hematuria or urinary frequency Musculoskeletal Musculoskeletal: Reports back pain and other Details: Left hip pain ; Denies arthralgias or myalgias Integumentary Denies abscess or rash Neurologic Neurologic: Denies headache(s) or weakness Psychiatric Psychiatric: Denies anxiety, depression, suicidal ideation or suicidal thoughts Endocrine Endocrinology: Denies polydipsia, polyphagia or polyuria Allergic/Immunologic Allergic/Immunologic ED: Denies mouth swelling, tongue swelling or urticaria EXAM Physical Exam Const Vital Signs: 06/01/21 14:41 Temperature 96.4 F L Temperature Source Temporal Pulse Rate 108 H Respiratory Rate 16 Blood Pressure 100/61 Blood Pressure Mean 74 Pulse Ox 100 Oxygen Delivery Method Room Air Positive well nourished and well developed General Appearance ED: well developed HEENT Reports normocephalic, head/scalp atraumatic, TM's clear and moist mucous membranes Negative for trauma Tympanic Membrane ED: Yes TM's clear Eyes PERRL and EOMs intact bilaterally Neck no lymphadenopathy, supple and no JVD Resp normal respiratory effort and clear to auscultation bilaterally Cardio regular rate, regular rhythm and no murmurs GI normal to inspection, nondistended, normoactive bowel sounds and non-tender Palpation: soft Back/Spine no CVA tenderness and normal ROM Thoracic Spine / Upper Back: paraspinal muscle tenderness bilateral Extremity Extremity Narrative: Pain with logroll and with motion of the hip. General Extremety ED: Negative for edema General Extremity: Negative for edema Neuro oriented x3 and CN's II-XII intact bilaterally Sensorium / Orientation: alert Motor Exam: strength 5/5 throughout Psych mental status grossly normal Mood & Affect: Negative for depressed or tearful Skin no rashes or lesions noted and no wounds MDM MDM MDM Narrative Medical decision making narrative: Basic labs are obtained. Type and screen obtained. Because the patient stated she has hit her head and these falls a CT of the brain was obtained and negative. My interpretation of the chest x-ray is no acute process. Case was discussed with orthopedics on-call and hospitalist. Plan is admission. Lab Data Attestation: I reviewed the patient's lab results. Labs: Laboratory Results - last 24 hr 06/01/21 06/01/21 06/01/21 15:30 15:30 15:30 WBC 9.7 RBC 3.32 L Hgb 10.9 L Hct 33.2 L MCV 100.0 H MCH 32.8 H MCHC 32.8 RDW Std Deviation 65.7 H RDW Coeff of Suki 17.9 H Plt Count 275 MPV 9.1 Immature Gran % (Auto) 1.100 H Neut % (Auto) 73.2 H Lymph % (Auto) 16.7 L Linn % (Auto) 7.8 Eos % (Auto) 0.8 Baso % (Auto) 0.4 Absolute Neuts (auto) 7.1 Absolute Lymphs (auto) 1.61 Nucleated RBC % 0 PT 12.9 INR 1.0 APTT 31.6 Sodium 141 Potassium 3.6 Chloride 104 Carbon Dioxide 29.0 Anion Gap 8 BUN 10 Creatinine 1.21 H Estim Creat Clear Calc 38.62 Est GFR (MDRD) Af Amer 58 L Est GFR (MDRD) Non-Af 48 L BUN/Creatinine Ratio 8.3 L Glucose 126 H Calcium 8.8 Total Bilirubin 0.30 AST 11 L ALT 13 Alkaline Phosphatase 131 H Total Protein 6.7 Albumin 2.5 L Globulin 4.2 Albumin/Globulin Ratio 0.6 L Radiography Diagnostic Testing: Clinical Impression(s) from Imaging Studies Chest X-Ray 06/01/21 15:03 IMPRESSION: No active disease. Electronically Signed: Juan Jose Dorsey MD at 16:06 EDT Tel , Service support , Brain CT 06/01/21 15:47 IMPRESSION: Normal unenhanced CT scan of the brain. Electronically Signed: Juan Jose Dorsey MD at 16:00 EDT Tel , Service support , EKG Initial EKG: Attestation: I personally reviewed and interpreted this EKG as follows: Comments: Normal sinus rhythm with a ventricular rate of 100 bpm. Discharge Plan Dx/Rx/DC Orders Clinical Impression: Closed fracture of left hip Disposition Disposition: Acute Care Hospital [facility]
--- NOTE | 2021-06-01 15:47 | CT_ITS ---
STUDY: CT BRAIN WITHOUT CONTRAST REASON FOR EXAM: Female, 61 years old. injury RADIATION DOSAGE (If Supplied By Facility): CTDIvol = ( 44.99 ) mGy, DLP = ( 779.24 ) mGycm TECHNIQUE: Transaxial CT imaging of the brain was performed without administration of intravenous contrast material. Individualized dose optimization techniques were used for this CT. COMPARISON: 03/06/2021 FINDINGS: Normal soft tissue structures. Normal calvarium. Normal size ventricles and extra-axial spaces for the patient''s age. Normal white matter tracts of the cerebral hemispheres. Normal basal ganglia and thalami. Normal brainstem. Normal cerebellum. There is no intracranial hemorrhage. There are no findings of an acute ischemic infarction. Normal visualized paranasal sinuses. CT/Brain/Head without Contrast IMPRESSION: Normal unenhanced CT scan of the brain. Electronically Signed: Juan Jose Dorsey MD at 16:00 EDT Tel , Service support ,
[2021-06-01 15:56] LABS: Absolute Lymphocyte Count 1.61 X10^3/uL (0.83-4.51); Absolute Neutrophil Count 7.1 X10^3/uL (2.0-7.7); Basophil# 0.04 X10^3/uL; Basophil% 0.4 % (0-1); Eosinophil# 0.08 X10^3/uL; Eosinophils% 0.8 % (0-5); Hematocrit 33.2 % (37-47); Hemoglobin 10.9 g/dL (12.0-15.0); Lymphocyte # 1.61 X10^3/ul (0.83-4.51); Lymphocyte % 16.7 % (19-41); Mean Corp Hgb Conc 32.8 g/dL (32-36); Mean Corpuscular Hgb 32.8 pg (27.0-32.0); Mean Platelet Vol. 9.1 fl (6.2-12.0); Monocyte# 0.75 X10^3/uL; Monocyte% 7.8 % (0-10); NRBC Flagged by Analyzer 0 % (0-5); Neutrophil # 7.07 X10^3/uL (2.7-7.7); Neutrophil % 73.2 % (47-70); POSITIVE MORPHOLOGY YES; Platelet Count 275 K/mm3 (150-450); RBC Distribution Width CV 17.9 % (11.6-14.6); RBC Distribution Width SD 65.7 fl (35.1-43.9); Red Blood Count 3.32 M/mm3 (4.2-5.4); White Blood Count 9.7 K/mm3 (4.4-11.0)
[2021-06-01] MEDS: oxyCODONE 5 MG Tablet PO (15:59)
[2021-06-01 16:01] LABS: Differential Indicated SCAN CRITERIA MET
[2021-06-01 16:03] LABS: Partial Thromboplast Time 31.6 Seconds (24.1-36.2); Prothrombin Time (Protime)PT. 12.9 SECONDS (11.7-14.9)
[2021-06-01 16:07] LABS: ALB/GLOB Ratio 0.6 RATIO (0.9-2.4); AST(SGOT) 11 U/L (15-37); Alanine Aminotransfer ALT/SGPT 13 U/L (13-56); Albumin, Serum 2.5 g/dL (3.2-5.0); Alkaline Phosphatase 131 U/L (45-117); Anion Gap 8 (5-15); BUN 10 mg/dL (7-18); BUN/Creat Ratio 8.3 RATIO (10-20); Calcium,Total 8.8 mg/dL (8.5-10.1); Chloride 104 mmol/L (98-107); Creatinine, Serum 1.21 mg/dL (0.55-1.02); EST Glomerular Filtration Rate 48 mL/min (>60); Est Glom Filt Rate - Afr Amer 58 mL/min (>60); Estimated Creatinine Clearance 38.62 ml/min; Globulin 4.2 g/dL (2.2-4.2); Glucose 126 mg/dL (74-106); Potassium 3.6 mmol/L (3.5-5.1); Protein, Total 6.7 g/dL (6.4-8.2); Sodium Level 141 mmol/L (136-145)
--- NOTE | 2021-06-01 16:21 | HP.PCM.HOS_ITS ---
HPI - General General Date of Admission: 06/01/21 Date of Service: 06/01/21 Chief Complaint: Left hip pain HPI Narrative MARGARITA JOSHI, is a 61 F who presented to the emergency department at [facility] on 06/01/2021 complaining of left hip pain. The patient had recently had an extended hospitalization here secondary to sepsis secondary to ischemic colitis with E. coli bacteremia, aspiration pneumonia, new pulmonary embolism and metabolic encephalopathy. She was discharged on 03/21/2021 to an F and was recently released within the last 2 weeks. She has been living home alone. Her daughter presents with her to the emergency department and assists with history. She evidently has had at least 2 falls since her return home that are mechanical in nature. The patient states that her legs are still significantly weak and attributes her falls to this. She has a couple skin tears but no other injuries. She has been having some hip pain but it got markedly worse the last several days so this is why she presented to the emergency department. An x-ray of her hip and pelvis was performed and identified a an acute impacted fracture of the left subcapital femoral neck with a normal acetabulum and hip joint. Her vital signs in the emergency department have been stable and at her baseline. Her CBC shows a normal white count, a chronic stable anemia, and a normal platelet count. Her coags are normal. Her CMP shows normal electrolytes with a mildly elevated creatinine that is at her baseline at 1.21, and normal LFTs. Her chest x-ray shows no acute findings. A CT of her brain was performed and showed a normal unenhanced CT of the brain. Her EKG was reviewed and shows no acute changes in the ST-T waves consistent with acute ischemia. Other than left hip pain the patient is not having any other symptoms. She denies any chest pain or shortness of breath. She did follow-up with cardiology and they are going to monitor for further need for invasive or noninvasive testing in the future. I did discuss the case with Dr. Hamilton extensively and he felt as long as she was asymptomatic and had no changes on her EKG that she should undergo her hip surgery and follow-up as an outpatient for the decision for any further cardiac testing. She will be admitted to PCU for surgical intervention to her left hip. [facility] Medical History (Updated 06/01/21 @ 17:[address] Heidi Zacarias, DO) Acute respiratory failure with hypoxia and hypercapnia Anemia Anxiety Arthritis Back pain Cardiology follow-up encounter Cervical radiculitis Chest pain Chronic back pain CKD (chronic kidney disease) stage 3, GFR 30-59 ml/min COPD (chronic obstructive pulmonary disease) CPAP (continuous positive airway pressure) dependence Depression Diabetes Diabetes mellitus, type II Diverticulosis Elevated troponin Emphysema, unspecified Fibromyalgia Former smoker Gallbladder sludge Gastric reflux Gastro-esophageal reflux disease without esophagitis History of echocardiogram History of hiatal hernia History of pain when walking History of renal disease History of stress test Hyperlipidemia Hypertension Injury of back Migraine headache Nicotine dependence, cigarettes, uncomplicated Normal colonoscopy On home oxygen therapy LATA (obstructive sleep apnea) Peripheral neuropathy Pulmonary embolism Shortness of breath on exertion Sleep apnea Smoker Smoking greater than 30 pack years Stage 2 moderate COPD by GOLD classification Thrombocytopenia Tobacco use Type 2 WA (myocardial infarction) Walker as ambulation aid Wears glasses Wears partial dentures Home Medications bupropion HCl (smoking deter) 150 mg PO DAILY 07/09/19 [History Last Taken 06/01/21] docusate sodium 100 mg PO BID 07/09/19 [History Last Taken 06/01/21] ferrous sulfate 325 mg PO DAILY 07/09/19 [History Last Taken 05/31/21] lamotrigine 100 mg PO DAILY 07/09/19 [History Last Taken 06/01/21] sertraline 100 mg PO DAILY 07/09/19 [History Last Taken 06/01/21] albuterol sulfate 2.5 mg INHALATION Q2H PRN PRN #3 ml 03/19/21 [Rx Last Taken 05/23/21] furosemide 40 mg tablet 40 mg PO DAILY tab 05/12/21 [History Last Taken 06/01/21] ondansetron HCl 4 mg tablet 4 mg PO Q6H PRN 05/12/21 [History Last Taken 06/01/21] sertraline 50 mg tablet 50 mg PO DAILY 05/12/21 [History Last Taken 06/01/21] simvastatin 20 mg tablet 20 mg PO DAILY 05/12/21 [History Last Taken 05/31/21] trazodone 100 mg tablet 100 mg PO QHS tab 05/12/21 [History Last Taken 05/07 01/24] aripiprazole 10 mg PO DAILY 05/18/21 [History Last Taken 06/01/21] benztropine 0.5 mg PO TID 05/18/21 [History Last Taken 06/01/21] nitrofurantoin monohyd/m-cryst [Macrobid] 100 mg PO Q12H 5 Days #10 cap 05/18/21 [Rx Last Taken 06/01/21] umeclidinium-vilanterol [Anoro Ellipta] 1 inh INHALATION DAILY 05/18/21 [History Last Taken 06/01/21] omeprazole 40 mg PO DAILY 05/24/21 [History Last Taken 06/01/21] acetaminophen 1,000 mg PO BID PRN 06/01/21 [History Last Taken 06/01/21] allopurinol 300 mg PO DAILY@1200 06/01/21 [History Last Taken 06/01/21] apixaban [Eliquis] 5 mg PO BID 06/01/21 [History Last Taken Unknown] potassium chloride 40 meq PO BID 06/01/21 [History Last Taken 06/01/21] Allergy/AdvReac Type Severity Reaction Status Date / Time No Known Allergies Allergy Verified 06/01/21 14:51 Family History Mother Hypertension Father Hypertension Diabetes Surgical History Cervical vertebral fusion history EGD with ph probe (~12/09/17) History of colonoscopy (~12/05/17) History of repair of hiatal hernia History of shoulder surgery History of tubal ligation Hx of cholecystectomy Hx of hernia repair Social History household members: none Smoking Status: Former smoker quit date: 07/27/17 alcohol intake: never substance use type: does not use caffeine: No what type of physical activity do you participate in: none ROS Constitutional Constitutional: Denies anorexia, change in weight, chills, fatigue, fever(s), malaise, night sweats, weakness or other Eyes Eyes: Denies blurry vision, change in eye color, change in vision, discharge from eye(s), double vision, erythema, eye pain, loss of vision or other ENT HEENT: Denies abnormal hearing, dysphagia, ear pain, epistaxis, headache(s), hearing loss, nasal congestion, nasal discharge, post nasal drip, sinus pressure, sore throat or other Cardiovascular Cardiovascular: Denies chest pain, claudication, dyspnea on exertion, edema, lightheadedness, orthopnea, palpitations, paroxysmal nocturnal dyspnea, rapid heart rate, syncope or other Respiratory/Chest Respiratory/Chest: Denies cough, dyspnea, excessive phlegm production, hemoptysis, productive cough, shortness of breath at rest, shortness of breath with exertion, wheezing or other Gastrointestinal Gastrointestinal: Denies abdominal pain, coffee ground emesis, constipation, diarrhea, dyspepsia, hematemesis, hematochezia, loose stools, melena, nausea, vomiting or other Genitourinary Genitourinary: Reports burning urination, dysuria, urinary frequency and other Details: Was recently done with a UTI ; Denies difficulty urinating, hematuria, nocturia, urinary hesitancy, urinary incontinence or urinary urgency Musculoskeletal Musculoskeletal: Reports joint pain; Denies arthralgias, back pain, joint stiffness, joint swelling, myalgias, neck pain or other Neurologic Neurologic: Reports confusion Psychiatric Psychiatric: Reports anxiety and depression Endocrine Endocrinology: Denies change in body appearance, cold intolerance, excessive sweating, heat intolerance, polydipsia, polyuria or other Hematologic/Lymphatic Hematologic/Lymphatic: Denies anemia, easy bleeding, easy bruising, lymphadeno daisy or other Allergic/Immunologic Allergic/Immunologic: Denies rhinitis, hives, eczemia, asthma or other Vital Signs Vital Signs Vital Signs: 06/01/21 14:41 Temperature 96.4 F L Temperature Source Temporal Pulse Rate 108 H Respiratory Rate 16 Blood Pressure 100/61 Blood Pressure Mean 74 Pulse Ox 100 Oxygen Delivery Method Room Air Weight Weight: 53.977 kg Body Mass Index (BMI) 21.7 Physical Exam Const alert, oriented x3, no apparent distress and average body habitus Constitutional Narrative: Upper middle-aged white female lying in bed, daughter at bedside, patient appears much older than stated age, patient appears comfortable as long as she does not move her left leg, nontoxic General Appearance: cooperative HEENT normocephalic, head/scalp atraumatic, hearing grossly normal bilaterally and moist oral mucous membranes HEENT Narrative: Upper dentures in place, Mallampati 2, no thrush Eyes PERRL, EOMs intact bilaterally and conjunctivae normal Eyes Narrative: No scleral icterus Neck no lymphadenopathy, supple, no JVD and no carotid bruits Neck Narrative: Trachea midline, no thyroid enlargement Resp normal respiratory effort, no retractions, no use of accessory muscles and clear to auscultation bilaterally Resp Narrative: Diffusely diminished but no adventitious sounds Auscultation: Negative for crackles, rales, rhonchi or wheezes Cardio regular rate, regular rhythm, S1 normal heart sound, S2 normal heart sound, no murmurs, no rub, no gallops, no clicks and no JVD GI normal to inspection, nondistended, normoactive bowel sounds, soft to palpation, non-tender and non-distended; Negative for hepatosplenomegaly Extremity no clubbing, cyanosis or edema Extremity Narrative: Decreased movement voluntarily in left lower extremity secondary to pain Peripheral Pulses: Yes pulses 2+ throughout Skin skin turgor normal, no jaundice, no petechiae and no mottling Skin Narrative: Skin tear left forearm and right lares with no signs of infection or drainage Neuro oriented x3, CN's II-XII intact bilaterally and no focal motor deficits Neuro Narrative: Some intermittent confusion on detail fax with the daughter at the bedside to provide information, generalized weakness, left lower extremity strength not assessed secondary to fracture Sensorium / Orientation: awake and alert Speech: speech normal Psych Psych Narrative: Affect is slightly flat and patient seems somewhat disinterested Results Lab / Micro Data Attestation: I reviewed the patient's lab results. Result Diagrams: 06/01/21 15:30 06/01/21 15:30 Labs: Laboratory Results - last 24 hr 06/01/21 15:30: WBC 9.7, RBC 3.32 L, Hgb 10.9 L, Hct 33.2 L, MCV 100.0 H, MCH 32.8 H, MCHC 32.8, RDW Std Deviation 65.7 H, RDW Coeff of Suki 17.9 H, Plt Count 275, MPV 9.1, Immature Gran % (Auto) 1.100 H, Neut % (Auto) 73.2 H, Lymph % (Auto) 16.7 L, [place] % (Auto) 7.8, Eos % (Auto) 0.8, Baso % (Auto) 0.4, Absolute Neuts (auto) 7.1, Absolute Lymphs (auto) 1.61, Nucleated RBC % 0 06/01/21 15:30: PT 12.9, INR 1.0, APTT 31.6 06/01/21 15:30: Sodium 141, Potassium 3.6, Chloride 104, Carbon Dioxide 29.0, Anion Gap 8, BUN 10, Creatinine 1.21 H, Estim Creat Clear Calc 38.62, Est GFR (MDRD) Af Amer 58 L, Est GFR (MDRD) Non-Af 48 L, BUN/Creatinine Ratio 8.3 L, Glucose 126 H, Calcium 8.8, Total Bilirubin 0.30, AST 11 L, ALT 13, Alkaline Phosphatase 131 H, Total Protein 6.7, Albumin 2.5 L, Globulin 4.2, Albumin/Globulin Ratio 0.6 L Radiology Impression Chest X-Ray 06/01/21 15:03 IMPRESSION: No active disease. Electronically Signed: Juan Jose Dorsey MD at 16:06 EDT Tel , Service support , Brain CT 06/01/21 15:47 IMPRESSION: Normal unenhanced CT scan of the brain. Electronically Signed: Juan Jose Dorsey MD at 16:00 EDT Tel , Service support , Assessment & Plan Assessment/Plan (1) Left hip pain: (2) Subcapital fracture of femur: PLAN: Left subcapital hip fracture -Consult orthopedic surgery -Continue to hold Eliquis -N.p.o. after midnight -IV fluids in the a.m. and postoperative. Until p.o. intake is adequate -PT/OT consult -Unable to get surgical risk calculator to work -Patient will likely need rehab at discharge Uncomplicated Proteus UTI -Patient had been on Macrobid but cultures results show lacking sensitivity for Macrobid -Start ceftriaxone day 1 of 3 Pulmonary embolism -Continue Eliquis postoperatively when okay with general surgery Dysphagia -Consult speech therapy -Suspect that her previous issues were related to profound weakness related to acute illness -Diet at discharge was is pur?ed with thin liquids --> Will continue until evaluated by speech therapy CKD stage IIIa -Current serum creatinine is at baseline of 1.1-1.3 -Her serum creatinine did not normalize after her VILMA related to sepsis Chronic anemia -Patient with known chronic iron deficiency -Patient did have a colonoscopy that was negative for any signs of bleeding or stigmata of bleeding -Continue to monitor -Continue iron supplementation History of thrombocytopenia -Patient did have acute thrombocytopenia while hospitalized in March -HIT antibody was performed but I am unable to find in the system -Would avoid heparin products until able to ascertain whether or not her HIT antibody was positive History of DM-2 -On admission previously her A1c was 5.8 -I suspect she may have some prandial hyperglycemia with normal fasting blood sugars as her blood sugar on admission was 126 -We will monitor History of NSTEMI -Suspect stress-induced/demand ischemia related to sepsis and pulmonary embolism -Echo at last admission showed normal EF at 60% with no wall motion abnormality but was not a great study secondary to patient cooperation at that time -EKG on admission was unremarkable and patient has been asymptomatic -Multiple risk factors for cardiac disease -Extensive discussion with Dr. Hamilton upon admission for her hip--> no current noninvasive testing at this time unless patient was symptomatic or had EKG changes which she does not with the thought process being if we intervene on her care from a cardiac standpoint she would be unable to have her hip surgery secondary to dual antiplatelet therapy -We will cycle cardiac enzymes -Consult cardiology any cardiac issues occur Anxiety/depression/bipolar disorder -Continue home medications as ordered Baseline COPD -Continue pulmonary toilet -Patient is not O2 dependent at baseline History of gout -Continue allopurinol Diabetic neuropathy -Continue gabapentin Hyperlipidemia -Continue atorvastatin DVT prophylaxis -SCDs -Start Eliquis postoperatively CODE STATUS -Full code Charges/Coding Visit Charges Inpatient E&M: 33202 Init Hosp L3
[2021-06-01 16:24] LABS: Anisocytosis 1+; Platelet Estimate ADEQUATE (ADEQ); Red Cell Morphology N CHROM NORMAL (NORM C&C)
--- NOTE | 2021-06-01 16:24 | NURSING ---
HOSPITALIST PAGED DR PITTMAN FOR DR DONIS
--- NOTE | 2021-06-01 16:27 | CON.PCM.OR_ITS ---
HPI Consult Data Date of Consult: 06/01/21 HPI Narrative HPI Narrative: MARGARITA JOSHI, is a 61 F who presents Approximately 1 week status post mechanical fall onto her left side. She has had left hip pain since the fall but has been attempting to ambulate with a walker full-time. She states she has been to both her doctors office and the grocery store since the fall. She states the pain is in her left groin with attempted weightbearing. Patient of note presented with septic shock secondary to urinary tract infection and was diagnosed with a PE approximately 3 months ago started on Eliquis. She has been off Eliquis for approximately 1 week for a colonoscopy. She has also been diagnosed with a another urinary tract infection approximately 10 days ago, finishing antibiotic course in the coming days. Patient admits to occasional left hip pain, rarely in the groin, but she attributes this to her low back issues for which she has received injections in the past. Patient lives at home alone. She is using a walker full-time. [facility] Medical History (Updated 06/01/21 @ 16:[address] Heidi Zacarias DO) Acute respiratory failure with hypoxia and hypercapnia Anemia Anxiety Arthritis Back pain Cardiology follow-up encounter Cervical radiculitis Chest pain Chronic back pain CKD (chronic kidney disease) stage 3, GFR 30-59 ml/min COPD (chronic obstructive pulmonary disease) CPAP (continuous positive airway pressure) dependence Depression Diabetes Diabetes mellitus, type II Diverticulosis Elevated troponin Emphysema, unspecified Fibromyalgia Former smoker Gallbladder sludge Gastric reflux Gastro-esophageal reflux disease without esophagitis History of echocardiogram History of hiatal hernia History of pain when walking History of renal disease History of stress test Hyperlipidemia Hypertension Injury of back Migraine headache Nicotine dependence, cigarettes, uncomplicated On home oxygen therapy LATA (obstructive sleep apnea) Peripheral neuropathy Pulmonary embolism Shortness of breath on exertion Sleep apnea Smoker Smoking greater than 30 pack years Stage 2 moderate COPD by GOLD classification Thrombocytopenia Tobacco use Type 2 NJ (myocardial infarction) Walker as ambulation aid Wears glasses Wears partial dentures Home Medications bupropion HCl (smoking deter) 150 mg PO DAILY 07/09/19 [History Last Taken 06/01/21] docusate sodium 100 mg PO BID 07/09/19 [History Last Taken 06/01/21] ferrous sulfate 325 mg PO DAILY 07/09/19 [History Last Taken 05/31/21] lamotrigine 100 mg PO DAILY 07/09/19 [History Last Taken 06/01/21] sertraline 100 mg PO DAILY 07/09/19 [History Last Taken 06/01/21] albuterol sulfate 2.5 mg INHALATION Q2H PRN PRN #3 ml 03/19/21 [Rx Last Taken 05/23/21] furosemide 40 mg tablet 40 mg PO DAILY tab 05/12/21 [History Last Taken 06/01/21] ondansetron HCl 4 mg tablet 4 mg PO Q6H PRN 05/12/21 [History Last Taken 06/01/21] sertraline 50 mg tablet 50 mg PO DAILY 05/12/21 [History Last Taken 06/01/21] simvastatin 20 mg tablet 20 mg PO DAILY 05/12/21 [History Last Taken 05/31/21] trazodone 100 mg tablet 100 mg PO QHS tab 05/12/21 [History Last Taken 05/31/21] aripiprazole 10 mg PO DAILY 05/18/21 [History Last Taken 06/01/21] benztropine 0.5 mg PO TID 05/18/21 [History Last Taken 06/01/21] nitrofurantoin monohyd/m-cryst [Macrobid] 100 mg PO Q12H 5 Days #10 cap 05/18/21 [Rx Last Taken 06/01/21] umeclidinium-vilanterol [Anoro Ellipta] 1 inh INHALATION DAILY 05/18/21 [History Last Taken 06/01/21] omeprazole 40 mg PO DAILY 05/24/21 [History Last Taken 06/01/21] acetaminophen 1,000 mg PO BID PRN 06/01/21 [History Last Taken 06/01/21] allopurinol 300 mg PO DAILY@1200 06/01/21 [History Last Taken 06/01/21] apixaban [Eliquis] 5 mg PO BID 06/01/21 [History Last Taken Unknown] potassium chloride 40 meq PO BID 06/01/21 [History Last Taken 06/01/21] Allergy/AdvReac Type Severity Reaction Status Date / Time No Known Allergies Allergy Verified 06/01/21 14:51 Family History Mother Hypertension Father Hypertension Diabetes Surgical History Cervical vertebral fusion history EGD with ph probe (~12/09/17) History of colonoscopy (~12/05/17) History of repair of hiatal hernia History of shoulder surgery History of tubal ligation Hx of cholecystectomy Hx of hernia repair Social History household members: none Smoking Status: Former smoker quit date: 07/27/17 alcohol intake: never substance use type: does not use caffeine: No what type of physical activity do you participate in: none ROS ROS Narrative 10 point review of systems obtained, negative unless otherwise noted in HPI Vital Signs Vital Signs Vital Signs: 06/01/21 14:41 Temperature 96.4 F L Temperature Source Temporal Pulse Rate 108 H Respiratory Rate 16 Blood Pressure 100/61 Blood Pressure Mean 74 Pulse Ox 100 Oxygen Delivery Method Room Air Weight Weight: 119 lb Body Mass Index (BMI) 21.7 Physical Exam Narrative General -A&Ox3, NAD, appears stated age. Vital signs stable, afebrile. Respiratory -normal work of breathing, no intercostal retractions. CV -pulses regular, brisk capillary refill ?4 limbs. Abdomen-soft, nontender, nondistended. No guarding, rigidity, rebound tenderness. Musculoskeletal/neurologic -full range of motion nontender throughout bilateral upper extremities, right lower extremity with full sensation and strength in all dermatomes and myotomes. No midline cervical tenderness. Left lower extremity- no obvious deformity. No pain with logroll of the left lower extremity. Pain is noted end range of Flexed IR and JUAQUIN. Nontender throughout the left knee femoral shaft, tibial shaft and left foot/ankle. Brisk capillary refill. Sensation intact light touch L3-S1 dermatomes. DF, PF, EHL intact. DP, PT 2+. Pelvis is stable, nontender. Skin is intact without lacerations, abrasions. No ecchymosis noted. Lab / Micro Data Result Diagrams: 06/01/21 15:30 06/01/21 15:30 Labs: Laboratory Results - last 24 hr 06/01/21 15:30: WBC 9.7, RBC 3.32 L, Hgb 10.9 L, Hct 33.2 L, MCV 100.0 H, MCH 32.8 H, MCHC 32.8, RDW Std Deviation 65.7 H, RDW Coeff of Suki 17.9 H, Plt Count 275, MPV 9.1, Immature Gran % (Auto) 1.100 H, Neut % (Auto) 73.2 H, Lymph % (Auto) 16.7 L, [place] % (Auto) 7.8, Eos % (Auto) 0.8, Baso % (Auto) 0.4, Absolute Neuts (auto) 7.1, Absolute Lymphs (auto) 1.61, Nucleated RBC % 0, Platelet Estimate ADEQUATE, RBC Morphology N CHROM, Anisocytosis 1+ 06/01/21 15:30: PT 12.9, INR 1.0, APTT 31.6 06/01/21 15:30: Sodium 141, Potassium 3.6, Chloride 104, Carbon Dioxide 29.0, Anion Gap 8, BUN 10, Creatinine 1.21 H, Estim Creat Clear Calc 38.62, Est GFR ( MDRD) Af Amer 58 L, Est GFR (MDRD) Non-Af 48 L, BUN/Creatinine Ratio 8.3 L, Glucose 126 H, Calcium 8.8, Total Bilirubin 0.30, AST 11 L, ALT 13, Alkaline Phosphatase 131 H, Total Protein 6.7, Albumin 2.5 L, Globulin 4.2, Albumin/Globulin Ratio 0.6 L Radiology Impression X-ray left hip reviewed from 06/01/2021 Per my interpretation, valgus impacted left femoral neck fracture Left hip joint space is well-maintained Chest X-Ray 06/01/21 15:03 IMPRESSION: No active disease. Electronically Signed: Juan Jose Dorsey MD at 16:06 EDT Tel , Service support , Brain CT 06/01/21 15:47 IMPRESSION: Normal unenhanced CT scan of the brain. Electronically Signed: Juan Jose Dorsey MD at 16:00 EDT Tel , Service support , Assessment & Plan Assessment/Plan (1) Subcapital fracture of femur: PLAN: Patient has a subacute, impacted left femoral neck fracture She has attempted ambulation in the fracture pattern appears stable Patient is to be admitted under the care of the hospitalist. I do recommend surgical intervention. We discussed surgical options including percutaneous screw fixation, hemiarthroplasty and total hip arthroplasty. I reviewed the risks, benefits, alternatives to all the procedures. I explained that given her ambulation since the fall and valgus impacted nature, this fracture appears amenable to fixation with percutaneous screws. I am inclined to allow her to bear full weight as long as fixation is stable intraoperatively. I did explain there is a risk of hardware failure and need for additional surgery including conversion to a hemiarthroplasty or total hip arthroplasty. We may also have to restrict her weightbearing postoperatively with percutaneous screws. I also reviewed the risks of hemiarthroplasty and total hip arthroplasty, mainly infection risk with her recurrent UTIs and instability, especially with the total hip arthroplasty. She has expressed understanding of all the above risks and wished to proceed with percutaneous screw fixation. The risks include but are not limited to bleeding, infection, loss of life or limb, risk of anesthesia, failure of the mechanical hardware, malunion or nonunion, VTE, limb length discrepancy, persistent pain, damage to surrounding structures. Patient expressed understanding of these risks and wished to proceed with surgery. N.p.o. after midnight maintenance IV fluids 1 g Ancef on-call to the OR Medical optimization per admitting physician Tentatively plan for fixation tomorrow afternoon when the OR time becomes available Thank you for this consultation
--- NOTE | 2021-06-01 16:37 | NURSING ---
[facility] LT HIP FX
[2021-06-01 18:10] LABS: Troponin-I HS 12 pg/mL (3.0-54.0)
[2021-06-01 19:32] LABS: Troponin-I HS 12 pg/mL (3.0-54.0)
--- NOTE | 2021-06-01 20:15 | PCS.PANDOC ---
PANDEMIC DOCUMENTATION INITIATED: Date: 03/21/2021 Time: 190
[2021-06-01] MEDS: Ceftriaxone 1 GM/50 ML BAG IV (20:37)
[2021-06-01] MEDS: 0.9% Saline Lock 10 ML Syringe IV (20:38)
[2021-06-01] MEDS: Atorvastatin Calcium 10 MG Tablet PO (21:23)
[2021-06-01] MEDS: Benztropine Mesylate 0.5 MG TABLET PO (21:23)
[2021-06-01] MEDS: Docusate Sodium 100 MG Capsule PO (21:23)
[2021-06-01] MEDS: traZODone 100 MG Tablet PO (21:24)
[2021-06-01 21:30] LABS: Troponin-I HS 13 pg/mL (3.0-54.0)
[2021-06-02] VITALS (21 sets, daily range): BP systolic 94–118; BP diastolic 62–72; PULSE 80–100; RESP 14–20; TEMP 35.9–37; O2SAT 87–100; BMI 21.9
[2021-06-02] MEDS: Lactated Ringers 1,000 ML 70 ML IV ×2 (06:07→22:37)
[2021-06-02 06:25] LABS: Absolute Lymphocyte Count 1.94 X10^3/uL (0.83-4.51); Absolute Neutrophil Count 4.9 X10^3/uL (2.0-7.7); Basophil# 0.03 X10^3/uL; Basophil% 0.4 % (0-1); Eosinophil# 0.17 X10^3/uL; Eosinophils% 2.2 % (0-5); Hematocrit 30.3 % (37-47); Hemoglobin 9.7 g/dL (12.0-15.0); Lymphocyte # 1.94 X10^3/ul (0.83-4.51); Mean Corpuscular Hgb 31.9 pg (27.0-32.0); Mean Corpuscular Volume 99.7 fL (81-99); Mean Platelet Vol. 9.3 fl (6.2-12.0); Monocyte# 0.66 X10^3/uL; Monocyte% 8.5 % (0-10); NRBC Flagged by Analyzer 0 % (0-5); Neutrophil # 4.91 X10^3/uL (2.7-7.7); Neutrophil % 63.1 % (47-70); Platelet Count 254 K/mm3 (150-450); RBC Distribution Width CV 17.4 % (11.6-14.6); RBC Distribution Width SD 63.3 fl (35.1-43.9); Red Blood Count 3.04 M/mm3 (4.2-5.4); White Blood Count 7.8 K/mm3 (4.4-11.0)
[2021-06-02] MEDS: Ipratropium/Albuterol Sulfate 3 ML AMPUL.NEB INHALATION ×2 (06:52→19:29)
[2021-06-02 07:00] LABS: ALB/GLOB Ratio 0.5 RATIO (0.9-2.4); AST(SGOT) 11 U/L (15-37); Alanine Aminotransfer ALT/SGPT 11 U/L (13-56); Albumin, Serum 1.9 g/dL (3.2-5.0); Alkaline Phosphatase 109 U/L (45-117); Anion Gap 5 (5-15); BUN 8 mg/dL (7-18); BUN/Creat Ratio 9.4 RATIO (10-20); Calcium,Total 8.2 mg/dL (8.5-10.1); Chloride 105 mmol/L (98-107); Creatinine, Serum 0.85 mg/dL (0.55-1.02); EST Glomerular Filtration Rate 72 mL/min (>60); Est Glom Filt Rate - Afr Amer 87 mL/min (>60); Estimated Creatinine Clearance 52.45 ml/min; Globulin 3.6 g/dL (2.2-4.2); Glucose 84 mg/dL (74-106); Magnesium 1.5 mg/dL (1.6-2.6); Phosphorus 3.4 mg/dL (2.5-4.9); Potassium 3.4 mmol/L (3.5-5.1); Protein, Total 5.5 g/dL (6.4-8.2); Sodium Level 140 mmol/L (136-145); Thyroid Stim Hormone (TSH) 0.93 uIU/mL (0.358-3.74)
[2021-06-02] MEDS: Pantoprazole Sodium 40 MG Tablet PO (08:42)
[2021-06-02] MEDS: Sertraline 100 MG Tablet PO (08:43)
[2021-06-02] MEDS: lamoTRIgine 100 MG Tablet PO (08:43)
[2021-06-02] MEDS: Sertraline 50 MG Tablet PO (08:43)
[2021-06-02] MEDS: ARIPiprazole 10 MG Tablet PO (08:43)
[2021-06-02] MEDS: buPROPion (XL) 150 MG TABLET.XL PO (08:45)
--- NOTE | 2021-06-02 10:47 | PCM.PN.HOSP ---
Documented by User: Dewey HARRIS 06/02/21 11:01 Subjective Subjective Patient is a 61-year-old female comfortably resting in a chair, alert and orient x3. Patient reports ongoing left hip pain associated with fracture as well as difficulty urinating. Overall condition is unchanged for admission. Denies development of any new symptoms overnight. Objective Data Objective Data Vital Signs: Vital Signs Temp Pulse Resp BP Pulse Ox 97.9 F 94 20 H 104/63 91 06/02/21 06:09 06/02/21 07:15 06/02/21 06:52 06/02/21 06:09 06/02/21 06:52 Oxygen Delivery Method Room Air Weight: 118 lb 13.266 oz Body Mass Index (BMI) 21.9 Intake & Output: Intake and Output for Last 24 Hours 05/31/21 06/01/21 06/02/21 23:59 23:59 23:59 Intake Total 62.75 / 62.75 Balance 62.75 / 62.75 Medical Nutrition Assessment Dietitian: Malnutrition Criteria Met Start: 06/02/21 10:32 Freq: Status: Active Protocol: Document 06/02/21 10:32 BP (Rec: 06/02/21 10:32 BP [id number]) Nutrition Malnutrition Evidence of Malnutrition Exists Yes Malnutrition (moderate): Chronic Evidenced By Suboptimal Energy Intake ( Moderate),Weight Loss (Severe) ,Physical Changes (Moderate) Clinical Problem Chronic Disease or Condition Related Malnutrition Etiology Moderate chronic malnutrition related to inadequate energy intake Signs/Symptoms as evidenced by pt consuming < 75% energy intake compared to estimated needs x >/= 1 month, severe unintentional weight loss 23% x ~3 months, moderate signs/symptoms of muscle/fat wasting, and pt report clothes fitting very baggy and falling off. Status Active Problem Recommendation Dietitian Recommendations/Changes Rec advance to regular diet as pt medical able given s/s of malnutrition. Once diet progressed will provide nutrition supplements. Lab / Micro Data Result Diagrams: 06/02/21 05:40 06/02/21 05:40 Labs: Laboratory Results - last 24 hr 06/01/21 15:30: WBC 9.7, RBC 3.32 L, Hgb 10.9 L, Hct 33.2 L, MCV 100.0 H, MCH 32.8 H, MCHC 32.8, RDW Std Deviation 65.7 H, RDW Coeff of Suki 17.9 H, Plt Count 275, MPV 9.1, Immature Gran % (Auto) 1.100 H, Neut % (Auto) 73.2 H, Lymph % (Auto) 16.7 L, [place] % (Auto) 7.8, Eos % (Auto) 0.8, Baso % (Auto) 0.4, Absolute Neuts (auto) 7.1, Absolute Lymphs (auto) 1.61, Nucleated RBC % 0, Platelet Estimate ADEQUATE, RBC Morphology N CHROM, Anisocytosis 1+ 06/01/21 15:30: PT 12.9, INR 1.0, APTT 31.6 06/01/21 15:30: Sodium 141, Potassium 3.6, Chloride 104, Carbon Dioxide 29.0, Anion Gap 8, BUN 10, Creatinine 1.21 H, Estim Creat Clear Calc 38.62, Est GFR (MDRD) Af Amer 58 L, Est GFR (MDRD) Non-Af 48 L, BUN/Creatinine Ratio 8.3 L, Glucose 126 H, Calcium 8.8, Total Bilirubin 0.30, AST 11 L, ALT 13, Alkaline Phosphatase 131 H, Total Protein 6.7, Albumin 2.5 L, Globulin 4.2, Albumin/Globulin Ratio 0.6 L 06/01/21 15:30: Blood Type O POSITIVE, Antibody Screen NEGATIVE 06/01/21 15:30: Troponin I High Sens 12 06/01/21 18:50: Troponin I High Sens 12 06/01/21 21:05: Troponin I High Sens 13 06/02/21 05:40: WBC 7.8, RBC 3.04 L, Hgb 9.7 L, Hct 30.3 L, MCV 99.7 H, MCH 31.9, MCHC 32.0, RDW Std Deviation 63.3 H, RDW Coeff of Suki 17.4 H, Plt Count 254, MPV 9.3, Immature Gran % (Auto) 0.800, Neut % (Auto) 63.1, Lymph % (Auto) 25.0, [place] % (Auto) 8.5, Eos % (Auto) 2.2, Baso % (Auto) 0.4, Absolute Neuts (auto) 4.9, Absolute Lymphs (auto) 1.94, Nucleated RBC % 0 06/02/21 05:40: Sodium 140, Potassium 3.4 L, Chloride 105, Carbon Dioxide 30.0, Anion Gap 5, BUN 8, Creatinine 0.85, Estim Creat Clear Calc 52.45, Est GFR (MDRD) Af Amer 87, Est GFR (MDRD) Non-Af 72, BUN/Creatinine Ratio 9.4 L, Glucose 84, Calcium 8.2 L, Phosphorus 3.4, Magnesium 1.5 L, Total Bilirubin 0.30, AST 11 L, ALT 11 L, Alkaline Phosphatase 109, Total Protein 5.5 L, Albumin 1.9 L, Globulin 3.6, Albumin/Globulin Ratio 0.5 L, TSH 0.93 Radiography Diagnostic Testing: Radiology Impression Chest X-Ray 06/01/21 15:03 IMPRESSION: No active disease. Electronically Signed: Juan Jose Dorsey MD at 16:06 EDT Tel , Service support , Brain CT 06/01/21 15:47 IMPRESSION: Normal unenhanced CT scan of the brain. Electronically Signed: Juan Jose Dorsey MD at 16:00 EDT Tel , Service support , Physical Exam Const alert, oriented x3 and no apparent distress HEENT head/scalp atraumatic and moist oral mucous membranes Head and Scalp: normocephalic Eyes PERRL, EOMs intact bilaterally and conjunctivae normal Neck no lymphadenopathy, supple and no JVD Resp normal respiratory effort, no retractions and no use of accessory muscles Cardio regular rate and regular rhythm GI normal to inspection, nondistended, normoactive bowel sounds, soft to palpation and non-tender Extremity full ROM and no clubbing, cyanosis or edema Skin no rashes or lesions noted, no wounds, skin turgor normal and no jaundice Neuro CN's II-XII intact bilaterally Psych affect normal Assessment & Plan Assessment/Plan (1) Subcapital fracture of femur: PLAN: Day 1 1) left subcapital hip fracture Plan is for surgery today, per orthopedics. Continue to hold Eliquis in anticipation for surgery, reinitiate per orthopedics. 2) uncomplicated Proteus UTI Macrobid discontinued on admission due to lack of sensitivity per cultures. Continue ceftriaxone day 2 of 3. 3) history of pulmonary embolism Continue to hold Eliquis, reinitiate per surgery. 4) anxiety/depression/bipolar disorder Continue home medications. 5) gout Continue allopurinol. 6) DM2 with diabetic neuropathy Accu-Cheks with sliding scale insulin ordered Continue gabapentin. 7) hyperlipidemia Continue atorvastatin. 8) history of NSTEMI High-sensitivity troponins not elevated throughout cycle, consult cardiology should any cardiac issues arise. DVT prophylaxis - SCDs. Reinitiate Eliquis postoperatively. Patient seen by Dewey Myers PA-C, under the supervision of Dr. Deshpande. Documented by User: Dr. Ricardo Deshpande MD 06/02/21 16:14 Objective Data Lab / Micro Data Result Diagrams: 06/02/21 05:40 06/02/21 05:40 Charges/Coding Addendum Addendum: Dr. Deshpande: I personally reviewed the chart and examined the patient, and agree with the above findings.61-year-old female who fell about a week ago onto her left hip and has been trying to walk with her walker, but has had significant pain present to the hospital with a left hip fracture. Status post repair June 02, 2021, will plan to have her follow-up with PT/OT while here for discharge planning Home versus SNF. Continue Rocephin for her Proteus UTI and she will be able to restart her Eliquis tomorrow for DVT prophylaxis after surgery. Visit Charges Inpatient E&M: 43583 Subs Hosp L2
--- NOTE | 2021-06-02 10:50 | CASEMGMT ---
Addendum entered by Cecile Newby 06/02/21 15:27: Pt has CM thru [facility] and has been approved for 13hours aides/week but has not been given any and per , there is a shortage of aides. Debbi RODRIGUEZ CM Original Note: MICHAEL STERLING Assessment: Face to Face with patient for initial transition planning/care coordination assessment. MICHAEL STERLING introduced self and role at [facility], pt voices understanding and consents to assessment. Pt is sitting up in chair in no distress on room air. Pt is A/Ox4 and answers all questions appropriately. Care providers, pharmacy, and demographics verified. Presentation: Fall a week ago with left hip pain and xray shows fx Admitting dx: L hip fx PCP: Nomi Specialists: beverly Briggs; [facility] Preferred Pharmacy: [facility] Insurance: [facility] Prescription Benefit: Yes Living Will/HPOA: Pt states does not have LW/HPOA but 'is working on it.' LNOK: Aiden Fisher, son Living Arrangements: Pt states lives alone in 1st floor apt with no steps and states no concerns at home. Pt is independent with ADL's. Transportation: Pt states drives self and states no transportation concerns. DME/HHC: Pt states has the following DME: medical alert, rollator, grab bars, shower chair, cpap, and 2L w/ exertion and bleed in cpap thru [employer]. Pt states has had [facility] in the past and has been to the [facility] and [facility]. Pt states no concerns with going home at time of discharge but pt is scheduled for hip surgery this afternoon. Pt is retired. Pt states smokes about 3 cigarettes daily and does not drink ETOH. Pt states no further concerns/needs. CM to follow for PT/OT evals s/p surgery and any further discharge planning/needs. Advised pt to ask for CM if any further questions/concerns/needs arise, voices understanding. Pt Goal: Home Plan: Home, pending therapy evals. Debbi RODRIGUEZ CM
--- NOTE | 2021-06-02 11:01 | CASEMGMT ---
SHRUTHI is familiar with patient from previous admission. Patient had [facility] and her top case assembler was Kim Rutledge. SW called [facility] and spoke with Kyrie Sharma on the coverage line. Patient's top case assembler is now Stella Orr ([phone] and [phone]). Patient gets 7 meals a week from [employer] and she has a medical alert button. Patient currently does not have any aide services as there is a current shortage of aides. SHRUTHI will notify [facility] when patient is discharged. Lauren Chong RIVETING MACHINE OPERATOR RE
[2021-06-02] MEDS: Morphine 2 MG/ML Syringe IV (11:58)
[2021-06-02] MEDS: 0.9% Saline Lock 10 ML Syringe IV (11:59)
--- NOTE | 2021-06-02 12:20 | NURSING ---
Pt sent to surgery at this time
[2021-06-02 13:10] LABS: Bedside Glucose 90 mg/dL (70-110)
--- NOTE | 2021-06-02 13:37 | PCM.PN.ORT ---
Subjective Subjective Patient seen and examined in the preoperative holding area. She denies any new questions. Continues with left groin/hip pain. Denies any numbness or tingling. Denies fevers, chills, nausea vomiting, chest pain or shortness of breath. Objective Data Objective Data Vital Signs: Vital Signs Temp Pulse Resp BP Pulse Ox 97.9 F 91 18 95/62 96 06/02/21 12:55 06/02/21 12:55 06/02/21 12:55 06/02/21 12:55 06/02/21 12:55 Oxygen Delivery Method Room Air Weight: 118 lb 13.266 oz Body Mass Index (BMI) 21.9 Intake & Output: Intake and Output for Last 24 Hours 05/31/21 06/01/21 06/02/21 23:59 23:59 23:59 Intake Total 62.75 / 62.75 Balance 62.75 / 62.75 Medical Nutrition Assessment Dietitian: Malnutrition Criteria Met Start: 06/02/21 10:32 Freq: Status: Active Protocol: Document 06/02/21 10:32 BP (Rec: 06/02/21 10:32 BP [id number]) Nutrition Malnutrition Evidence of Malnutrition Exists Yes Malnutrition (moderate): Chronic Evidenced By Suboptimal Energy Intake ( Moderate),Weight Loss (Severe) ,Physical Changes (Moderate) Clinical Problem Chronic Disease or Condition Related Malnutrition Etiology Moderate chronic malnutrition related to inadequate energy intake Signs/Symptoms as evidenced by pt consuming < 75% energy intake compared to estimated needs x >/= 1 month, severe unintentional weight loss 23% x ~3 months, moderate signs/symptoms of muscle/fat wasting, and pt report clothes fitting very baggy and falling off. Status Active Problem Recommendation Dietitian Recommendations/Changes Rec advance to regular diet as pt medical able given s/s of malnutrition. Once diet progressed will provide nutrition supplements. Lab / Micro Data Result Diagrams: 06/02/21 05:40 06/02/21 05:40 Labs: Laboratory Results - last 24 hr 06/01/21 15:30: WBC 9.7, RBC 3.32 L, Hgb 10.9 L, Hct 33.2 L, MCV 100.0 H, MCH 32.8 H, MCHC 32.8, RDW Std Deviation 65.7 H, RDW Coeff of Suki 17.9 H, Plt Count 275, MPV 9.1, Immature Gran % (Auto) 1.100 H, Neut % (Auto) 73.2 H, Lymph % (Auto) 16.7 L, [place] % (Auto) 7.8, Eos % (Auto) 0.8, Baso % (Auto) 0.4, Absolute Neuts (auto) 7.1, Absolute Lymphs (auto) 1.61, Nucleated RBC % 0, Platelet Estimate ADEQUATE, RBC Morphology N CHROM, Anisocytosis 1+ 06/01/21 15:30: PT 12.9, INR 1.0, APTT 31.6 06/01/21 15:30: Sodium 141, Potassium 3.6, Chloride 104, Carbon Dioxide 29.0, Anion Gap 8, BUN 10, Creatinine 1.21 H, Estim Creat Clear Calc 38.62, Est GFR (MDRD) Af Amer 58 L, Est GFR (MDRD) Non-Af 48 L, BUN/Creatinine Ratio 8.3 L, Glucose 126 H, Calcium 8.8, Total Bilirubin 0.30, AST 11 L, ALT 13, Alkaline Phosphatase 131 H, Total Protein 6.7, Albumin 2.5 L, Globulin 4.2, Albumin/Globulin Ratio 0.6 L 06/01/21 15:30: Blood Type O POSITIVE, Antibody Screen NEGATIVE 06/01/21 15:30: Troponin I High Sens 12 06/01/21 18:50: Troponin I High Sens 12 06/01/21 21:05: Troponin I High Sens 13 06/02/21 05:40: WBC 7.8, RBC 3.04 L, Hgb 9.7 L, Hct 30.3 L, MCV 99.7 H, MCH 31.9, MCHC 32.0, RDW Std Deviation 63.3 H, RDW Coeff of Suki 17.4 H, Plt Count 254, MPV 9.3, Immature Gran % (Auto) 0.800, Neut % (Auto) 63.1, Lymph % (Auto) 25.0, [place] % (Auto) 8.5, Eos % (Auto) 2.2, Baso % (Auto) 0.4, Absolute Neuts (auto) 4.9, Absolute Lymphs (auto) 1.94, Nucleated RBC % 0 06/02/21 05:40: Sodium 140, Potassium 3.4 L, Chloride 105, Carbon Dioxide 30.0, Anion Gap 5, BUN 8, Creatinine 0.85, Estim Creat Clear Calc 52.45, Est GFR (MDRD) Af Amer 87, Est GFR (MDRD) Non-Af 72, BUN/Creatinine Ratio 9.4 L, Glucose 84, Calcium 8.2 L, Phosphorus 3.4, Magnesium 1.5 L, Total Bilirubin 0.30, AST 11 L, ALT 11 L, Alkaline Phosphatase 109, Total Protein 5.5 L, Albumin 1.9 L, Globulin 3.6, Albumin/Globulin Ratio 0.5 L, TSH 0.93 06/02/21 13:04: POC Glucose 90 Radiography Diagnostic Testing: Radiology Impression Chest X-Ray 06/01/21 15:03 IMPRESSION: No active disease. Electronically Signed: Juan Jose Dorsey MD at 16:06 EDT Tel , Service support , Brain CT 06/01/21 15:47 IMPRESSION: Normal unenhanced CT scan of the brain. Electronically Signed: Juan Jose Dorsey MD at 16:00 EDT Tel , Service support , Physical Exam Narrative General - A&Ox3, NAD. VSS/AF Left lower extremity -pain with passive range of motion left hip. SILT Sural, Saphenous, SPN, DPN, Tibial N. distributions. DP, PT 2+. BCR. DF, PF, EHL 5/5. No calf TTP. Assessment & Plan Assessment/Plan (1) Subcapital fracture of femur: PLAN: Plan to proceed with operative intervention in the form of left femoral neck percutaneous screw fixation We again reviewed the risks, benefits, alternatives procedure at length and patient agreed to proceed. Informed consent signed and placed in the chart N.p.o. since midnight Further recommendations following surgical intervention
--- NOTE | 2021-06-02 13:52 | RAD_ITS ---
STUDY: X-RAY - PELVIS AND LEFT HIP REASON FOR EXAM: Female, 61 years old. FX TECHNIQUE: Intraoperative views of the pelvis and hip. COMPARISON: None. FINDINGS: Intraoperative views were provided for reduction of the subcapital fracture using 2 screws. RAD/Hip 1 view with Pelvis IMPRESSION: Fluoroscopic services provided for intraoperative reduction of the subcapital fracture. Electronically Signed: Roger Barker MD at 15:48 EDT , Service support ,
[2021-06-02] MEDS: Cefazolin 2 GM in 0.9% Normal Saline 100 ML IV (13:56)
[2021-06-02] MEDS: Bupivacaine Mpf 0.5% 30 ML VIAL (14:55)
--- NOTE | 2021-06-02 15:06 | PCM.OPRPT ---
Problems Associated Problem List Diagnoses (1) Subcapital fracture of femur: Report of Operation Date of Procedure: 06/02/21 Description of Surgical Findings:: Preoperative diagnosis: Left subacute valgus impacted femoral neck fracture Postoperative diagnosis: Left subacute valgus impacted femoral neck fracture Procedure: Percutaneous screw fixation of left subacute valgus impacted femoral neck fracture Surgeon: Ricardo Roca DO Anesthesia: General LMA Anesthesiologist: Dr. Costa Complications: None Directional Drill Operator: None Drains: None Estimated blood loss: 100 cc Urinary output: None IV fluids: Per anesthesia record Specimens: None Surgical implants: Synthes 7.3 mm cannulated screws x3 Surgical indications: This is a 61-year-old female seen in consultation at [facility] after a mechanical fall at home 1 week ago. X-rays were obtained in the emergency department after she had difficulty ambulating, although that she did ambulate extended distances with a walker, on 06/01/2021 which demonstrated a valgus impacted left femoral neck fracture. She had pain with end range of motion passively of the left hip. I was asked to see the patient in consultation after she was admitted to the hospitalist. I recommended surgical fixation in the form of percutaneous screw fixation of the right femoral neck. We discussed the risks, benefits, alternatives of procedure including but not limited to bleeding, infection, need for additional surgery, malunion or nonunion, persistent pain, persistent disability, loss of life or limb, risk of anesthesia, mechanical failure of orthopedic hardware. Patient acknowledged understanding of these risks and elected to proceed. Description of procedure: Prior to the procedure, patient was brought to the preoperative holding area where patient was identified by name, medical record number and date of . I confirmed the side, site, operation to be performed. Informed consent was confirmed. The operative extremity was marked. She was also seen by anesthesia staff and anesthesia consent obtained.At time of the operative procedure, pt was brought to the operative suite. General anesthesia was induced on the hospital bed and LMA placed. After adequate anesthesia and securing the tube, patient was then positioned supine on a fracture table. The operative foot was well-padded and placed in a ski boot attached to the traction unit on the fracture table. The nonoperative leg was extended and secured to the lateral post of the fracture table. A well-padded perineal post was placed and the left upper extremity was brought across patient's torso and secured. We applied minimal traction through the operative extremity. We then prepped and draped the left lower extremity in normal sterile orthopedic fashion after maintained reduction was confirmed on fluoroscopy orthogonal views. We then performed a timeout with all parties in attendance in agreement with the side, site, operation be performed. 1 g Ancef was administered prior to incision by anesthesia staff. I first used fluoroscopy to shonna out our planned incision with the planned trajectory of the screws. An approximately 3 inch incision was made along the lateral thigh. I then opened the IT band with a scalpel. A threaded K wire was then used to plan my screw trajectory. I placed an inverted triangle configuration just above the level of the lesser trochanter. Position was confirmed on fluoroscopy and appropriate and parallel position. Depth gauge was used to measure the length of screws. Screws were then placed on power and tightened on hand. I did place a washer on the screws for increasing purchase. Final fluoroscopic images were obtained. Maintained reduction in placement and size of hardware appeared appropriate. Hemostasis was excellent. I then thoroughly irrigated the wound with normal saline solution. Deep tissues were closed with 0 Vicryl suture and subcutaneous tissue closed with 2-0 Vicryl suture. Skin was finally closed with tom. Sterile compression dressings were applied to the wounds. Patient was then taken out of traction entirely and removed from both traction boot and well leg loera. Patient was transferred back to his hospital bed in stable condition and extubated safely in the operative suite. Patient was then transferred to PACU in stable condition. Post Operative Plan: Weightbearing: Weightbearing as tolerated left lower extremity with a walker Antibiotics: Ancef 1 g x 3 doses postoperatively, 1 dose given preoperatively DVT Prophylaxis: Eliquis to restart morning dose 06/03/2021, TEDs,. Mobilization Ochoa: None Dressing: Dry sterile dressing changes daily and as needed for saturation X-Rays: 2-3 weeks postop in the office Follow-up: 2-3 weeks in the office with myself
[2021-06-02 16:10] LABS: Bedside Glucose 84 mg/dL (70-110)
[2021-06-02] MEDS: Allopurinol 300 MG Tablet PO (17:09)
[2021-06-02] MEDS: Ferrous Sulfate 325 MG Tablet PO (17:09)
[2021-06-02] MEDS: oxyCODONE 5 MG Tablet PO (20:16)
[2021-06-02] MEDS: Ceftriaxone 1 GM/50 ML BAG IV (21:15)
[2021-06-02] MEDS: Docusate Sodium 100 MG Capsule PO (21:17)
[2021-06-02] MEDS: Benztropine Mesylate 0.5 MG TABLET PO (21:17)
[2021-06-02] MEDS: traZODone 100 MG Tablet PO (21:17)
[2021-06-02] MEDS: Atorvastatin Calcium 10 MG Tablet PO (21:18)
[2021-06-02] MEDS: Cefazolin 1 GM/50 ML BAG IV (22:34)
[2021-06-03] VITALS (13 sets, daily range): BP systolic 87–123; BP diastolic 59–76; PULSE 86–98; RESP 12–18; TEMP 36.5–36.9; O2SAT 94–100
[2021-06-03 05:18] LABS: Absolute Lymphocyte Count 1.04 X10^3/uL (0.83-4.51); Absolute Neutrophil Count 5.2 X10^3/uL (2.0-7.7); Basophil# 0.01 X10^3/uL; Basophil% 0.1 % (0-1); Eosinophil# 0.13 X10^3/uL; Eosinophils% 1.8 % (0-5); Hematocrit 28.4 % (37-47); Lymphocyte # 1.04 X10^3/ul (0.83-4.51); Lymphocyte % 14.6 % (19-41); Mean Corp Hgb Conc 31.7 g/dL (32-36); Mean Corpuscular Volume 101.1 fL (81-99); Mean Platelet Vol. 9.2 fl (6.2-12.0); Monocyte# 0.66 X10^3/uL; Monocyte% 9.3 % (0-10); NRBC Flagged by Analyzer 0 % (0-5); Neutrophil # 5.24 X10^3/uL (2.7-7.7); Neutrophil % 73.5 % (47-70); POSITIVE MORPHOLOGY YES; Platelet Count 226 K/mm3 (150-450); RBC Distribution Width CV 17.6 % (11.6-14.6); RBC Distribution Width SD 65.9 fl (35.1-43.9); Red Blood Count 2.81 M/mm3 (4.2-5.4); White Blood Count 7.1 K/mm3 (4.4-11.0)
[2021-06-03 05:20] LABS: Differential Indicated SCAN CRITERIA MET
[2021-06-03 05:45] LABS: Anisocytosis 1+; Differential Comment SCANNED; Macrocytosis 1+
[2021-06-03] MEDS: Cefazolin 1 GM/50 ML BAG IV (06:00)
[2021-06-03] MEDS: Benztropine Mesylate 0.5 MG TABLET PO ×3 (06:00→22:26)
[2021-06-03] MEDS: Ipratropium/Albuterol Sulfate 3 ML AMPUL.NEB INHALATION ×3 (06:56→19:28)
--- NOTE | 2021-06-03 07:51 | PCM.PN.ORT ---
Subjective Subjective Patient seen and examined at bedside this morning. Reports some soreness in her left hip. is a bit confused States she was up to the chair yesterday evening, but stating she is unsure if she had surgery yesterday. She denies fevers, chills, nausea or vomiting, chest pain or shortness of breath. No acute events overnight per nursing, other than some confusion regarding surgical details. Objective Data Objective Data Vital Signs: Vital Signs Temp Pulse Resp BP Pulse Ox 97.9 F 86 16 107/68 100 06/03/21 04:19 06/03/21 04:19 06/03/21 04:19 06/03/21 04:19 06/03/21 04:19 Oxygen Flow Rate (L/min) 2 Oxygen Delivery Method Nasal Cannula Weight: 118 lb 13.266 oz Body Mass Index (BMI) 21.9 Intake & Output: Intake and Output for Last 24 Hours 06/01/21 06/02/21 06/03/21 23:59 23:59 23:59 Intake Total 62.75 / 62.75 1450 / 1450 50 / 50 Output Total 200 / 200 Balance 62.75 / 62.75 1450 / 1450 -150 / -150 Medical Nutrition Assessment Dietitian: Malnutrition Criteria Met Start: 06/02/21 10:32 Freq: Status: Active Protocol: Document 06/02/21 10:32 BP (Rec: 06/02/21 10:32 BP [id number]) Nutrition Malnutrition Evidence of Malnutrition Exists Yes Malnutrition (moderate): Chronic Evidenced By Suboptimal Energy Intake ( Moderate),Weight Loss (Severe) ,Physical Changes (Moderate) Clinical Problem Chronic Disease or Condition Related Malnutrition Etiology Moderate chronic malnutrition related to inadequate energy intake Signs/Symptoms as evidenced by pt consuming < 75% energy intake compared to estimated needs x >/= 1 month, severe unintentional weight loss 23% x ~3 months, moderate signs/symptoms of muscle/fat wasting, and pt report clothes fitting very baggy and falling off. Status Active Problem Recommendation Dietitian Recommendations/Changes Rec advance to regular diet as pt medical able given s/s of malnutrition. Once diet progressed will provide nutrition supplements. Lab / Micro Data Result Diagrams: 06/03/21 04:45 06/02/21 05:40 Labs: Laboratory Results - last 24 hr 06/02/21 13:04: POC Glucose 90 06/02/21 16:07: POC Glucose 84 06/03/21 04:45: WBC 7.1, RBC 2.81 L, Hgb 9.0 L, Hct 28.4 L, MCV 101.1 H, MCH 32.0, MCHC 31.7 L, RDW Std Deviation 65.9 H, RDW Coeff of Suki 17.6 H, Plt Count 226, MPV 9.2, Immature Gran % (Auto) 0.700, Neut % (Auto) 73.5 H, Lymph % (Auto) 14.6 L, [place] % (Auto) 9.3, Eos % (Auto) 1.8, Baso % (Auto) 0.1, Absolute Neuts (auto) 5.2, Absolute Lymphs (auto) 1.04, Nucleated RBC % 0, Differential Comment SCANNED, Anisocytosis 1+, Macrocytosis 1+ Radiography Diagnostic Testing: Radiology Impression Hip/Pelvis X-Ray 06/02/21 13:52 IMPRESSION: Fluoroscopic services provided for intraoperative reduction of the subcapital fracture. Electronically Signed: Roger Barker MD at 15:48 EDT , Service support , Physical Exam Narrative General - A&Ox3, NAD. VSS/AF Left lower extremity -incisional dressing C/D/I. SILT Sural, Saphenous, SPN, DPN, Tibial N. distributions. DP, PT 2+. BCR. DF, PF, EHL 5/5. No calf TTP. Assessment & Plan Assessment/Plan (1) Subcapital fracture of femur: PLAN: POD#1 s/p left femoral neck percutaneous screw fixation - Pain control - Medicine following for medical management - PT/OT-weightbearing as tolerated left lower extremity with a walker - DVT PPX -restart home Eliquis today, SCDs, early mobilization - Case management - D/C planning, likely will need placement -Patient stable from my perspective. I will sign off today. Plan to follow-up in the office in 2-3 weeks for staple removal and x-rays. Prescription for oxycodone placed in the chart. Recommend continuing Eliquis upon discharge for VTE prophylaxis. Okay to maintain dressing if clean dry and intact for 3 days then okay to remove and shower. No tub soaks. If no drainage, okay to leave open to air, otherwise dry sterile dressing changes daily. Please do not hesitate to call if any questions or concerns arise.
[2021-06-03] MEDS: oxyCODONE 5 MG Tablet PO ×2 (10:02→17:08)
[2021-06-03] MEDS: Acetaminophen 325 MG Tablet 650 MG PO ×2 (10:02→17:08)
[2021-06-03] MEDS: Docusate Sodium 100 MG Capsule PO ×2 (10:09→22:26)
[2021-06-03] MEDS: buPROPion (XL) 150 MG TABLET.XL PO (10:10)
[2021-06-03] MEDS: lamoTRIgine 100 MG Tablet PO (10:10)
[2021-06-03] MEDS: ARIPiprazole 10 MG Tablet PO (10:10)
[2021-06-03] MEDS: Pantoprazole Sodium 40 MG Tablet PO (10:10)
[2021-06-03] MEDS: Sertraline 100 MG Tablet PO (10:10)
[2021-06-03] MEDS: Sertraline 50 MG Tablet PO (10:10)
[2021-06-03] MEDS: Furosemide 40 MG Tablet PO (10:10)
--- NOTE | 2021-06-03 10:13 | PCM.PN.HOSP ---
Documented by User: Dewey HARRIS 06/03/21 10:24 Subjective Subjective Patient is a 61-year-old female comfortably resting in bed, alert and orient x3. Patient does not report being in significant pain status post surgery and reports no urinary complaints. Denies development of any new symptoms overnight. Denies chest pain, shortness of breath, palpitations, hemoptysis, sputum production, fever, chills, N/V/D. Objective Data Objective Data Vital Signs: Vital Signs Temp Pulse Resp BP Pulse Ox 98.2 F 95 15 123/73 H 100 06/03/21 09:19 06/03/21 09:19 06/03/21 09:19 06/03/21 09:19 06/03/21 09:19 Oxygen Flow Rate (L/min) 1 Oxygen Delivery Method Nasal Cannula Weight: 118 lb 13.266 oz Body Mass Index (BMI) 21.9 Intake & Output: Intake and Output for Last 24 Hours 06/01/21 06/02/21 06/03/21 23:59 23:59 23:59 Intake Total 62.75 / 62.75 1450 / 1450 50 / 50 Output Total 200 / 200 Balance 62.75 / 62.75 1450 / 1450 -150 / -150 Medical Nutrition Assessment Dietitian: Malnutrition Criteria Met Start: 06/02/21 10:32 Freq: Status: Active Protocol: Document 06/02/21 10:32 BP (Rec: 06/02/21 10:32 BP [id number]) Nutrition Malnutrition Evidence of Malnutrition Exists Yes Malnutrition (moderate): Chronic Evidenced By Suboptimal Energy Intake ( Moderate),Weight Loss (Severe) ,Physical Changes (Moderate) Clinical Problem Chronic Disease or Condition Related Malnutrition Etiology Moderate chronic malnutrition related to inadequate energy intake Signs/Symptoms as evidenced by pt consuming < 75% energy intake compared to estimated needs x >/= 1 month, severe unintentional weight loss 23% x ~3 months, moderate signs/symptoms of muscle/fat wasting, and pt report clothes fitting very baggy and falling off. Status Active Problem Recommendation Dietitian Recommendations/Changes Rec advance to regular diet as pt medical able given s/s of malnutrition. Once diet progressed will provide nutrition supplements. Lab / Micro Data Result Diagrams: 06/03/21 04:45 06/02/21 05:40 Labs: Laboratory Results - last 24 hr 06/02/21 13:04: POC Glucose 90 06/02/21 16:07: POC Glucose 84 06/03/21 04:45: WBC 7.1, RBC 2.81 L, Hgb 9.0 L, Hct 28.4 L, MCV 101.1 H, MCH 32.0, MCHC 31.7 L, RDW Std Deviation 65.9 H, RDW Coeff of Suki 17.6 H, Plt Count 226, MPV 9.2, Immature Gran % (Auto) 0.700, Neut % (Auto) 73.5 H, Lymph % (Auto) 14.6 L, [place] % (Auto) 9.3, Eos % (Auto) 1.8, Baso % (Auto) 0.1, Absolute Neuts (auto) 5.2, Absolute Lymphs (auto) 1.04, Nucleated RBC % 0, Differential Comment SCANNED, Anisocytosis 1+, Macrocytosis 1+ Radiography Diagnostic Testing: Radiology Impression Hip/Pelvis X-Ray 06/02/21 13:52 IMPRESSION: Fluoroscopic services provided for intraoperative reduction of the subcapital fracture. Electronically Signed: Roger Barker MD at 15:48 EDT , Service support , Physical Exam Const alert, oriented x3 and no apparent distress HEENT head/scalp atraumatic and moist oral mucous membranes Head and Scalp: normocephalic Eyes PERRL, EOMs intact bilaterally and conjunctivae normal Neck no lymphadenopathy, supple and no JVD Resp normal respiratory effort, no retractions, no use of accessory muscles and clear to auscultation bilaterally Cardio regular rate, regular rhythm, no murmurs and no JVD GI normal to inspection, nondistended, normoactive bowel sounds, soft to palpation and non-tender Extremity normal to inspection, full ROM and no clubbing, cyanosis or edema Peripheral Pulses: Yes pulses 2+ throughout Skin no rashes or lesions noted, no wounds, skin turgor normal and no jaundice Neuro CN's II-XII intact bilaterally Psych affect normal Assessment & Plan Assessment/Plan (1) Subcapital fracture of femur: (2) Left hip pain: (3) Closed fracture of left hip: PLAN: Day 2 Discharge planning: PT/OT eval pending for home vs. SNF. 1) left subcapital hip fracture POD 1 s/p left femoral neck percutaneous screw fixation, management per orthopedics. Reinitiate home eliquis today. 2) uncomplicated Proteus UTI Macrobid discontinued on admission due to lack of sensitivity per cultures. Continue ceftriaxone day 3 of 3. 3) history of pulmonary embolism Reinitiate Eliquis as above. 4) anxiety/depression/bipolar disorder Continue home medications. 5) gout Continue allopurinol. 6) DM2 with diabetic neuropathy Accu-Cheks with sliding scale insulin ordered. Continue gabapentin. 7) hyperlipidemia Continue atorvastatin. 8) hypokalemia Potassium currently 3.4, replaced, continue to monitor. 9) history of NSTEMI High-sensitivity troponins not elevated throughout cycle, consult cardiology should any cardiac issues arise. DVT prophylaxis - Eliquis Patient seen by Dewey Myers PA-C, under the supervision of Dr. Deshpande. Documented by User: Dr. Ricardo Deshpande MD 06/03/21 17:55 Objective Data Lab / Micro Data Result Diagrams: 06/03/21 04:45 06/02/21 05:40 Charges/Coding Addendum Addendum: Dr. Deshpande: I personally reviewed the chart and examined the patient, and agree with the above findings.61-year-old female who fell about a week ago onto her left hip and has been trying to walk with her walker, but has had significant pain present to the hospital with a left hip fracture. Status post repair June 02, 2021, will plan to have her follow-up with PT/OT while here for discharge planning Home versus SNF. Continue Rocephin for her Proteus UTI and she will be able to restart her Eliquis tomorrow for DVT prophylaxis after surgery. 06/03/2021: Doing well after surgery, pain is controlled. She would like to go home and it does look like findings on physical therapy that that might be doable. We will see how she is doing tomorrow and obtain a CBC and a BMP to monitor renal function as well as hemoglobin after surgery. Visit Charges Inpatient E&M: 26917 Subs Hosp L2
[2021-06-03] MEDS: APIXABAN 5 MG TABLET PO ×2 (10:20→22:26)
[2021-06-03] MEDS: Allopurinol 300 MG Tablet PO (11:46)
[2021-06-03] MEDS: Ferrous Sulfate 325 MG Tablet PO (11:46)
[2021-06-03] MEDS: Potassium Chloride Oral Tablet 20 MEQ 40 MEQ PO (11:46)
[2021-06-03] MEDS: Lactated Ringers 1,000 ML 70 ML IV (11:48)
--- NOTE | 2021-06-03 13:54 | CASEMGMT ---
Addendum entered by Cecile Newby 06/03/21 14:26: Per Rosa at [facility], they can accept pt and will do start of care 06/06/21. Green sheet on chart. Debbi RODRIGUEZ CM Original Note: Per therapy, they are recommending HHC and pt states she would like the same and has had [facility] in the past. Pt states no further concerns/needs with going home. Order placed to PT/OT/aide and referral to Rosa at [facility]. Per Rosa, pt's PCP had already placed order for HHC but they had not heard back from him, most likely d/t admission. Rosa will call this RN HALLIE back. CM to follow. Debbi RODRIGUEZ CM
--- NOTE | 2021-06-03 15:20 | NURSING ---
Read and reviewed SN documentation. Reviewed plan of care with SN
[2021-06-03] MEDS: Atorvastatin Calcium 10 MG Tablet PO (22:25)
[2021-06-03] MEDS: traZODone 100 MG Tablet PO (22:26)
[2021-06-03] MEDS: Ceftriaxone 1 GM/50 ML BAG IV (22:26)
[2021-06-04 03:00] VITALS: PULSE 91
[2021-06-04 04:20] VITALS: BP 101/62; PULSE 90; RESP 18; TEMP 36.6; O2SAT 97
[2021-06-04] MEDS: Benztropine Mesylate 0.5 MG TABLET PO ×2 (05:32→12:58)
[2021-06-04 07:00] VITALS: PULSE 91
[2021-06-04 07:03] LABS: Absolute Lymphocyte Count 0.95 X10^3/uL (0.83-4.51); Absolute Neutrophil Count 5.1 X10^3/uL (2.0-7.7); Basophil# 0.02 X10^3/uL; Basophil% 0.3 % (0-1); Eosinophil# 0.12 X10^3/uL; Eosinophils% 1.7 % (0-5); Hematocrit 29.4 % (37-47); Hemoglobin 9.5 g/dL (12.0-15.0); Lymphocyte # 0.95 X10^3/ul (0.83-4.51); Lymphocyte % 13.7 % (19-41); Mean Corp Hgb Conc 32.3 g/dL (32-36); Mean Corpuscular Hgb 32.3 pg (27.0-32.0); Mean Platelet Vol. 9.1 fl (6.2-12.0); Monocyte# 0.68 X10^3/uL; Monocyte% 9.8 % (0-10); NRBC Flagged by Analyzer 0 % (0-5); Neutrophil # 5.14 X10^3/uL (2.7-7.7); Neutrophil % 74.1 % (47-70); POSITIVE MORPHOLOGY YES; Platelet Count 232 K/mm3 (150-450); RBC Distribution Width CV 17.5 % (11.6-14.6); RBC Distribution Width SD 65.1 fl (35.1-43.9); Red Blood Count 2.94 M/mm3 (4.2-5.4); White Blood Count 6.9 K/mm3 (4.4-11.0)
[2021-06-04 07:05] LABS: Differential Indicated SCAN CRITERIA MET
[2021-06-04 07:15] VITALS: PULSE 93; RESP 16; O2SAT 96
[2021-06-04] MEDS: Ipratropium/Albuterol Sulfate 3 ML AMPUL.NEB INHALATION (07:15)
[2021-06-04 07:16] LABS: Anisocytosis 1+; Differential Comment SCANNED; Macrocytosis 1+; Microcytosis RARE
[2021-06-04 07:27] LABS: Anion Gap 3 (5-15); BUN 7 mg/dL (7-18); BUN/Creat Ratio 10.6 RATIO (10-20); Calcium,Total 8.2 mg/dL (8.5-10.1); Chloride 103 mmol/L (98-107); Creatinine, Serum 0.66 mg/dL (0.55-1.02); EST Glomerular Filtration Rate 96 mL/min (>60); Est Glom Filt Rate - Afr Amer 117 mL/min (>60); Estimated Creatinine Clearance 67.55 ml/min; Glucose 86 mg/dL (74-106); Potassium 3.6 mmol/L (3.5-5.1); Sodium Level 141 mmol/L (136-145)
[2021-06-04 10:00] VITALS: BP 112/75; PULSE 92; RESP 18; TEMP 36.7; O2SAT 96
[2021-06-04] MEDS: Furosemide 40 MG Tablet PO (10:13)
[2021-06-04] MEDS: buPROPion (XL) 150 MG TABLET.XL PO (10:13)
[2021-06-04] MEDS: lamoTRIgine 100 MG Tablet PO (10:14)
[2021-06-04] MEDS: Sertraline 100 MG Tablet PO (10:14)
[2021-06-04] MEDS: Docusate Sodium 100 MG Capsule PO (10:14)
[2021-06-04] MEDS: Ferrous Sulfate 325 MG Tablet PO (10:14)
[2021-06-04] MEDS: APIXABAN 5 MG TABLET PO (10:15)
[2021-06-04] MEDS: ARIPiprazole 10 MG Tablet PO (10:15)
[2021-06-04] MEDS: Pantoprazole Sodium 40 MG Tablet PO (10:15)
[2021-06-04] MEDS: Sertraline 50 MG Tablet PO (10:16)
--- NOTE | 2021-06-04 10:24 | PCM.DC ---
Discharge Instructions Diet Discharge Diet: No restrictions Activity Discharge Activity: Return to Normal Activity Weight Bearing Status: Weight bearing as tolerated Dressing / Incision Call your doctor if you observe: Fever of 101 or Higher, Numbness or Tingling, Shortness of breath, Dizziness, Chest pain, Increased palpitations (irregular heartbeat) and Calf discomfort Follow Up Care Please Follow Up With: Primary care provider When: Within the next two weeks. Test Results: Test results from this visit will be discussed in further detail at your follow-up appointment, if applicable. Discharge Plan Admission Admit Date/Time: 06/01/21 16:28 Primary Reason for Your Visit: Hip fracture Attending Provider: Ricardo Deshpande Primary Care Provider: Hua Mosher Consulting Providers: Ricardo Roca Discharge Orders/Prescriptions Prescriptions: New oxycodone 5 mg Tablet 5 mg PO Q6H PRN PRN (Reason: Pain Score 6-10) 7 Days Qty: 28 RF: 0 Eliquis 5 mg Tablet 5 mg PO BID Qty: 60 RF: 0 Continued sertraline 50 mg tablet 50 mg PO DAILY RF: 0 ondansetron HCl [Zofran] 4 mg tablet 4 mg PO Q6H PRN (Reason: Nausea) RF: 0 simvastatin 20 mg tablet 20 mg PO DAILY RF: 0 trazodone 100 mg tablet 100 mg PO QHS RF: 0 sertraline 100 MG tablet 100 mg PO DAILY RF: 0 ferrous sulfate 325 MG tablet 325 mg PO DAILY RF: 0 lamotrigine 100 MG tablet 100 mg PO DAILY RF: 0 bupropion HCl (smoking deter) 150 MG tablet extended release 12 hr 150 mg PO DAILY RF: 0 docusate sodium 100 MG capsule 100 mg PO BID RF: 0 furosemide 40 mg tablet 40 mg PO DAILY RF: 0 albuterol sulfate 2.5 mg /3 mL (0.083 %) Solution For Nebulization 2.5 mg inhalation Q2H PRN PRN (Reason: Dyspnea, wheezing) Qty: 3 RF: 0 Anoro Ellipta 62.5-25 mcg/actuation blister with device 1 inh inhalation DAILY RF: 0 benztropine 0.5 mg tablet 0.5 mg PO TID RF: 0 aripiprazole 10 mg tablet 10 mg PO DAILY RF: 0 omeprazole 40 mg capsule,delayed release(DR/EC) 40 mg PO DAILY RF: 0 potassium chloride 10 mEq tablet extended release 40 meq PO BID RF: 0 acetaminophen 500 mg Tablet 1,000 mg PO BID PRN (Reason: Pain) RF: 0 allopurinol 300 mg tablet 300 mg PO DAILY@1200 RF: 0 Discontinued nitrofurantoin monohyd/m-cryst [Macrobid] 100 mg capsule 100 mg PO Q12H 5 Days Qty: 10 RF: 0 Eliquis 5 mg tablet 5 mg PO BID RF: 0 Referrals / Follow Up: Hua Mosher MD [Primary Care Provider] - Within 2 Weeks Ricardo Roca DO [STAFF PHYSICIAN] - 06/20/21 Disposition Disposition (needs filled in before D/C Order can be placed): Home, Self Care
[2021-06-04 10:44] VITALS: BP 112/75; PULSE 92; RESP 18; TEMP 36.7; O2SAT 96
--- NOTE | 2021-06-04 12:51 | PCM.DC.SUM ---
Documented by User: Dewey HARRIS 06/04/21 12:58 Providers Date of Admission: 06/01/21 Primary Care Physician: Dr. Hua Mosher MD Consultations 06/01/21 18:31 Consult: Orthopedics Routine Consulting Provider: Ricardo Roca Reason for Consult: R hip fx EMERGENT Consult: No MD Notified: Yes Date Notified: 06/01/21 Time Notified: 16:40 Method of Notification: per ED Reason For Visit: LEFT HIP FRACTURE Diagnosis Discharge Diagnosis (1) Subcapital fracture of femur: Status: Acute Code(s): S72.019A - Unspecified intracapsular fracture of unspecified femur, initial encounter for closed fracture (2) Left hip pain: Status: Acute Code(s): M25.552 - Pain in left hip (3) Closed fracture of left hip: Status: Acute Code(s): S72.002A - Fracture of unspecified part of neck of left femur, initial encounter for closed fracture Medications at Discharge Home Medications bupropion HCl (smoking deter) 150 mg PO DAILY 07/09/19 docusate sodium 100 mg PO BID 07/09/19 ferrous sulfate 325 mg PO DAILY 07/09/19 lamotrigine 100 mg PO DAILY 07/09/19 sertraline 100 mg PO DAILY 07/09/19 albuterol sulfate 2.5 mg INHALATION Q2H PRN PRN #3 ml 03/19/21 furosemide 40 mg tablet 40 mg PO DAILY tab 05/12/21 ondansetron HCl 4 mg tablet 4 mg PO Q6H PRN 05/12/21 sertraline 50 mg tablet 50 mg PO DAILY 05/12/21 simvastatin 20 mg tablet 20 mg PO DAILY 05/12/21 trazodone 100 mg tablet 100 mg PO QHS tab 05/12/21 Anoro Ellipta 1 inh INHALATION DAILY 05/18/21 aripiprazole 10 mg PO DAILY 05/18/21 benztropine 0.5 mg PO TID 05/18/21 omeprazole 40 mg PO DAILY 05/24/21 acetaminophen 1,000 mg PO BID PRN 06/01/21 allopurinol 300 mg PO DAILY@1200 06/01/21 potassium chloride 40 meq PO BID 06/01/21 oxycodone 5 mg PO Q6H PRN PRN 7 Days #28 tab 06/03/21 apixaban [Eliquis] 5 mg PO BID #60 tab 06/04/21 Hospital Course Summary of Care Provided Minutes Spent on Discharge: 35 Hospital Course: Disposition: Patient to discharge home. 1) left subcapital hip fracture POD 2 s/p left femoral neck percutaneous screw fixation, management per orthopedics. Eliquis reinitiated per orthopedics, Eliquis prescription refilled as patient voiced to this provider that she no longer had any Eliquis at home. Patient to follow-up with primary care provider and orthopedics within the next 2 weeks. 2) uncomplicated Proteus UTI Resolved. Macrobid discontinued on admission due to lack of sensitivity per cultures. Continue ceftriaxone day 3 of 3. 3) history of pulmonary embolism Reinitiate Eliquis as above. 4) anxiety/depression/bipolar disorder Continue home medications. 5) gout Continue allopurinol. 6) DM2 with diabetic neuropathy Accu-Cheks with sliding scale insulin ordered. Continue gabapentin. 7) hyperlipidemia Continue atorvastatin. 8) hypokalemia Potassium currently 3.4, replaced, continue to monitor. 9) history of NSTEMI High-sensitivity troponins not elevated throughout cycle, consult cardiology should any cardiac issues arise. Patient seen by Dewey Myers PA-C, under the supervision of Dr. Deshpande. Physical Exam Narrative Patient is a 61-year-old female comfortably resting in bed, alert and oriented x3. Patient reports that her pain is controlled on current pain regimen and denies development of any new symptoms overnight. Denies chest pain, shortness of breath, palpitations, hemoptysis, sputum production, fever, chills, N/V/D. Const alert, oriented x3 and no apparent distress HEENT normocephalic, head/scalp atraumatic and hearing grossly normal bilaterally Eyes PERRL, EOMs intact bilaterally and conjunctivae normal Neck no lymphadenopathy, supple and no JVD Resp normal respiratory effort, no retractions, no use of accessory muscles and clear to auscultation bilaterally Cardio regular rate, regular rhythm, no murmurs and no JVD GI normal to inspection, nondistended, normoactive bowel sounds, soft to palpation and non-tender Extremity normal to inspection, full ROM and no clubbing, cyanosis or edema Skin no rashes or lesions noted, no wounds and skin turgor normal Neuro CN's II-XII intact bilaterally Psych affect normal Medical Records Data Medical Nutrition Assessment Dietitian: Malnutrition Criteria Met Start: 06/02/21 10:32 Freq: Status: Active Protocol: Document 06/02/21 10:32 BP (Rec: 06/02/21 10:32 BP [id number]) Nutrition Malnutrition Evidence of Malnutrition Exists Yes Malnutrition (moderate): Chronic Evidenced By Suboptimal Energy Intake ( Moderate),Weight Loss (Severe) ,Physical Changes (Moderate) Clinical Problem Chronic Disease or Condition Related Malnutrition Etiology Moderate chronic malnutrition related to inadequate energy intake Signs/Symptoms as evidenced by pt consuming < 75% energy intake compared to estimated needs x >/= 1 month, severe unintentional weight loss 23% x ~3 months, moderate signs/symptoms of muscle/fat wasting, and pt report clothes fitting very baggy and falling off. Status Active Problem Recommendation Dietitian Recommendations/Changes Rec advance to regular diet as pt medical able given s/s of malnutrition. Once diet progressed will provide nutrition supplements. Weight / BMI Weight Weight: 118 lb 13.266 oz Body Mass Index (BMI) 21.9 ABG / Lab / Microbiology Data Result Diagrams: 06/04/21 06:42 06/04/21 06:42 Laboratory: Laboratory Results - last 24 hr 06/04/21 06:42: WBC 6.9, RBC 2.94 L, Hgb 9.5 L, Hct 29.4 L, MCV 100.0 H, MCH 32.3 H, MCHC 32.3, RDW Std Deviation 65.1 H, RDW Coeff of Suki 17.5 H, Plt Count 232, MPV 9.1, Immature Gran % (Auto) 0.400, Neut % (Auto) 74.1 H, Lymph % (Auto) 13.7 L, [place] % (Auto) 9.8, Eos % (Auto) 1.7, Baso % (Auto) 0.3, Absolute Neuts (auto) 5.1, Absolute Lymphs (auto) 0.95, Nucleated RBC % 0, Differential Comment SCANNED, Anisocytosis 1+, Microcytosis RARE, Macrocytosis 1+ 06/04/21 06:42: Sodium 141, Potassium 3.6, Chloride 103, Carbon Dioxide 35.0 H, Anion Gap 3 L, BUN 7, Creatinine 0.66, Estim Creat Clear Calc 67.55, Est GFR (MDRD) Af Amer 117, Est GFR (MDRD) Non-Af 96, BUN/Creatinine Ratio 10.6, Glucose 86, Calcium 8.2 L D/C Instructions Discharge Diet: No restrictions Weight Bearing Status: Weight bearing as tolerated Call your doctor if you observe: Fever of 101 or Higher, Numbness or Tingling, Shortness of breath, Dizziness, Chest pain, Increased palpitations (irregular heartbeat) and Calf discomfort Please Follow Up With: Primary care provider When: Within the next two weeks. Meaningful Use Info Meaningful Use Diagnoses (Choose all that apply): None applicable Discharge Plan Admission Admit Date/Time: 06/01/21 16:28 Primary Reason for Your Visit: Hip fracture Attending Provider: Ricardo Deshpande Primary Care Provider: Hua Mosher Consulting Providers: Ricardo Roca Discharge Orders/Prescriptions Prescriptions: New oxycodone 5 mg Tablet 5 mg PO Q6H PRN PRN (Reason: Pain Score 6-10) 7 Days Qty: 28 RF: 0 Eliquis 5 mg Tablet 5 mg PO BID Qty: 60 RF: 0 Continued sertraline 50 mg tablet 50 mg PO DAILY RF: 0 ondansetron HCl [Zofran] 4 mg tablet 4 mg PO Q6H PRN (Reason: Nausea) RF: 0 simvastatin 20 mg tablet 20 mg PO DAILY RF: 0 trazodone 100 mg tablet 100 mg PO QHS RF: 0 sertraline 100 MG tablet 100 mg PO DAILY RF: 0 ferrous sulfate 325 MG tablet 325 mg PO DAILY RF: 0 lamotrigine 100 MG tablet 100 mg PO DAILY RF: 0 bupropion HCl (smoking deter) 150 MG tablet extended release 12 hr 150 mg PO DAILY RF: 0 docusate sodium 100 MG capsule 100 mg PO BID RF: 0 furosemide 40 mg tablet 40 mg PO DAILY RF: 0 albuterol sulfate 2.5 mg /3 mL (0.083 %) Solution For Nebulization 2.5 mg inhalation Q2H PRN PRN (Reason: Dyspnea, wheezing) Qty: 3 RF: 0 Anoro Ellipta 62.5-25 mcg/actuation blister with device 1 inh inhalation DAILY RF: 0 benztropine 0.5 mg tablet 0.5 mg PO TID RF: 0 aripiprazole 10 mg tablet 10 mg PO DAILY RF: 0 omeprazole 40 mg capsule,delayed release(DR/EC) 40 mg PO DAILY RF: 0 potassium chloride 10 mEq tablet extended release 40 meq PO BID RF: 0 acetaminophen 500 mg Tablet 1,000 mg PO BID PRN (Reason: Pain) RF: 0 allopurinol 300 mg tablet 300 mg PO DAILY@1200 RF: 0 Discontinued nitrofurantoin monohyd/m-cryst [Macrobid] 100 mg capsule 100 mg PO Q12H 5 Days Qty: 10 RF: 0 Eliquis 5 mg tablet 5 mg PO BID RF: 0 Referrals / Follow Up: Hua Mosher MD [Primary Care Provider] - Within 2 Weeks Ricardo Roca DO [STAFF PHYSICIAN] - 06/20/21 Disposition Disposition (needs filled in before D/C Order can be placed): Home, Self Care Documented by User: Dr. Ricardo Deshpande MD 06/04/21 13:30 Providers Date of Admission: 06/01/21 Reason For Visit: LEFT HIP FRACTURE Medications at Discharge Home Medications bupropion HCl (smoking deter) 150 mg PO DAILY 07/09/19 docusate sodium 100 mg PO BID 07/09/19 ferrous sulfate 325 mg PO DAILY 07/09/19 lamotrigine 100 mg PO DAILY 07/09/19 sertraline 100 mg PO DAILY 07/09/19 albuterol sulfate 2.5 mg INHALATION Q2H PRN PRN #3 ml 03/19/21 furosemide 40 mg tablet 40 mg PO DAILY tab 05/12/21 ondansetron HCl 4 mg tablet 4 mg PO Q6H PRN 05/12/21 sertraline 50 mg tablet 50 mg PO DAILY 05/12/21 simvastatin 20 mg tablet 20 mg PO DAILY 05/12/21 trazodone 100 mg tablet 100 mg PO QHS tab 05/12/21 Anoro Ellipta 1 inh INHALATION DAILY 05/18/21 aripiprazole 10 mg PO DAILY 05/18/21 benztropine 0.5 mg PO TID 05/18/21 omeprazole 40 mg PO DAILY 05/24/21 acetaminophen 1,000 mg PO BID PRN 06/01/21 allopurinol 300 mg PO DAILY@1200 06/01/21 potassium chloride 40 meq PO BID 06/01/21 oxycodone 5 mg PO Q6H PRN PRN 7 Days #28 tab 06/03/21 apixaban [Eliquis] 5 mg PO BID #60 tab 06/04/21 ABG / Lab / Microbiology Data Result Diagrams: 06/04/21 06:42 06/04/21 06:42 Discharge Plan Admission Admit Date/Time: 06/01/21 16:28 Primary Reason for Your Visit: Hip fracture Attending Provider: Ricardo Deshpande Primary Care Provider: Hua Mosher Consulting Providers: Ricardo Roca Discharge Orders/Prescriptions Prescriptions: New oxycodone 5 mg Tablet 5 mg PO Q6H PRN PRN (Reason: Pain Score 6-10) 7 Days Qty: 28 RF: 0 Eliquis 5 mg Tablet 5 mg PO BID Qty: 60 RF: 0 Continued sertraline 50 mg tablet 50 mg PO DAILY RF: 0 ondansetron HCl [Zofran] 4 mg tablet 4 mg PO Q6H PRN (Reason: Nausea) RF: 0 simvastatin 20 mg tablet 20 mg PO DAILY RF: 0 trazodone 100 mg tablet 100 mg PO QHS RF: 0 sertraline 100 MG tablet 100 mg PO DAILY RF: 0 ferrous sulfate 325 MG tablet 325 mg PO DAILY RF: 0 lamotrigine 100 MG tablet 100 mg PO DAILY RF: 0 bupropion HCl (smoking deter) 150 MG tablet extended release 12 hr 150 mg PO DAILY RF: 0 docusate sodium 100 MG capsule 100 mg PO BID RF: 0 furosemide 40 mg tablet 40 mg PO DAILY RF: 0 albuterol sulfate 2.5 mg /3 mL (0.083 %) Solution For Nebulization 2.5 mg inhalation Q2H PRN PRN (Reason: Dyspnea, wheezing) Qty: 3 RF: 0 Anoro Ellipta 62.5-25 mcg/actuation blister with device 1 inh inhalation DAILY RF: 0 benztropine 0.5 mg tablet 0.5 mg PO TID RF: 0 aripiprazole 10 mg tablet 10 mg PO DAILY RF: 0 omeprazole 40 mg capsule,delayed release(DR/EC) 40 mg PO DAILY RF: 0 potassium chloride 10 mEq tablet extended release 40 meq PO BID RF: 0 acetaminophen 500 mg Tablet 1,000 mg PO BID PRN (Reason: Pain) RF: 0 allopurinol 300 mg tablet 300 mg PO DAILY@1200 RF: 0 Discontinued nitrofurantoin monohyd/m-cryst [Macrobid] 100 mg capsule 100 mg PO Q12H 5 Days Qty: 10 RF: 0 Eliquis 5 mg tablet 5 mg PO BID RF: 0 Referrals / Follow Up: Hua Mosher MD [Primary Care Provider] - Within 2 Weeks Ricardo Roca DO [STAFF PHYSICIAN] - 06/20/21 Disposition Disposition (needs filled in before D/C Order can be placed): Home, Self Care Charges/Coding Addendum Addendum: Addendum: Dr. Deshpande: I personally reviewed the chart and examined the patient, and agree with the above findings.61-year-old female who fell about a week ago onto her left hip and has been trying to walk with her walker, but has had significant pain present to the hospital with a left hip fracture. Status post repair June 02, 2021, will plan to have her follow-up with PT/OT while here for discharge planning Home versus SNF. Continue Rocephin for her Proteus UTI and she will be able to restart her Eliquis tomorrow for DVT prophylaxis after surgery. 06/03/2021: Doing well after surgery, pain is controlled. She would like to go home and it does look like findings on physical therapy that that might be doable. We will see how she is doing tomorrow and obtain a CBC and a BMP to monitor renal function as well as hemoglobin after surgery. 06/04/2021: Doing well after surgery. Blood pressure is stable, electrolytes and hemoglobin is also normal. She already has a pain prescription in the chart from orthopedic surgery. We will continue with Eliquis on discharge and she should follow-up with her PCP in 3 to 5 days. She is to maintain the dressing for 3 days post surgery and then she can remove it and shower. Discussed with her the plan for discharge today and she expressed understanding of the risk benefits of going home and she wants to go home. Visit Charges Inpatient E&M: 86277 Disch Hosp
[2021-06-04] MEDS: Allopurinol 300 MG Tablet PO (12:58)
--- NOTE | 2021-06-04 13:53 | CASEMGMT ---
SW Note Referral Source: Staff at PCU Referral Reason: Patient's daughter, Jessy, reports that they thought patient would be discharged Sunday and going to SNF SW met with patient and advised that Home Health from [facility] would follow up on 06/06/21. SW spoke to patient's daughter and explained PT was recommending home health and home health was ordered and they would be following up. Daughter asked how often the Home Health would be see patient and this marketing copywriter said that home health would make that determination.. Plan: Home with Home Health Brenda BRENNAN
--- NOTE | 2021-06-06 14:23 | CASEMGMT ---
MICHAEL STERLING Discharge Follow-up Phone Call: CARY: Agusto Strata: 4 Call Date: 06/06/21 Discharge Date: 06/04/21 Time of Call: 1420 Duration: 5 min Admitting Diagnosis: left hip fracture MICHAEL STERLING completed follow-up phone call after recent hospitalization. Pateint states she is doing okay. Patient had no questions or concerns regarding discharge instructions. Patient states she was able to fill prescriptions without any issues. Patient is aware of follow-up appts. Patient states that she has not heard from anyone regarding her home therapy. Patient updated that this MICHAEL STERLING would call [facility] and [facility]. Patient voiced understanding and states she is staying a friends house. MICHAEL STERLING called Rosa at [facility] and updated that patient had not been contacted regarding [facility] start of care. Per Rosa patient is on list to start care today. MICHAEL STERLING requested that [facility] call patient to confirm details.
== END 2021-06-04 14:17 | disposition home or self-care (01) | DRG 481 ==
LOC: ED 16:31 → PCU 17:03
PROVIDERS: Physician Assistant; Student in an Organized Health Care Education/Training Program; Admitting Provider Internal Medicine; Emergency Provider Emergency Medicine; PCP Family Medicine; Visit Provider Family Medicine
PROC: 0QS704Z Reposition Left Upper Femur with Internal Fixation Device, Open Approach (ICD-10-PCS; principal; 2021-06-02 12:45)
DX: S72.012A Unspecified intracapsular fracture of left femur, initial encounter for closed fracture (principal); N39.0 Urinary tract infection, site not specified; E44.0 Moderate protein-calorie malnutrition; S72.002A Fracture of unspecified part of neck of left femur, initial encounter for closed fracture; W19.XXXA Unspecified fall, initial encounter; Z91.81 History of falling; Y93.9 Activity, unspecified; Y92.9 Unspecified place or not applicable; B96.4 Proteus (mirabilis) (morganii) as the cause of diseases classified elsewhere; D69.6 Thrombocytopenia, unspecified; Z68.21 Body mass index [BMI] 21.0-21.9, adult; E11.22 Type 2 diabetes mellitus with diabetic chronic kidney disease; E11.40 Type 2 diabetes mellitus with diabetic neuropathy, unspecified; E78.5 Hyperlipidemia, unspecified; E87.6 Hypokalemia; F31.9 Bipolar disorder, unspecified; F41.9 Anxiety disorder, unspecified; G43.909 Migraine, unspecified, not intractable, without status migrainosus; G47.33 Obstructive sleep apnea (adult) (pediatric); G89.29 Other chronic pain; I12.9 Hypertensive chronic kidney disease with stage 1 through stage 4 chronic kidney disease, or unspecified chronic kidney disease; I25.2 Old myocardial infarction; J44.9 Chronic obstructive pulmonary disease, unspecified; K21.9 Gastro-esophageal reflux disease without esophagitis; M10.9 Gout, unspecified; M19.90 Unspecified osteoarthritis, unspecified site; M79.7 Fibromyalgia; N18.31 Chronic kidney disease, stage 3a; D50.9 Iron deficiency anemia, unspecified; R13.10 Dysphagia, unspecified; Z86.711 Personal history of pulmonary embolism; Z87.19 Personal history of other diseases of the digestive system; Z86.19 Personal history of other infectious and parasitic diseases; Z87.440 Personal history of urinary (tract) infections; Z87.448 Personal history of other diseases of urinary system; Z79.899 Other long term (current) drug therapy; F17.210 Nicotine dependence, cigarettes, uncomplicated
CPT/HCPCS: 36415; 70450; 71045; 72114; 73501; 73502; 76000; 80048; 80053; 82962; 83735; 84100; 84443; 84484; 85025; 85610; 85730; 86850; 86900; 86901; 92610; 93005; 94640; 97162; 97166; 97802; 99251; 99285; C1713; J7050; J7120; A4216; G0463

== ENCOUNTER 2021-06-06 18:42 | Observation (INO) | payer MEDICARE, MEDICAID, SELFPAY ==
[2021-06-06 18:44] VITALS: BP 124/69; PULSE 93; RESP 14; TEMP 36.8; O2SAT 100; BMI 49.6
--- NOTE | 2021-06-06 20:44 | EDS_ITS ---
HPI History of Present Illness Chief Complaint: Fall Informant: patient and family Onset/Context/Timing Onset: Days Context: Gradual Onset Timing: Continuous Quality: Change in mental status inability to care for self at home Location: Recent discharge for hip fracture Current Severity: Mild Maximum Severity: Moderate Worsened by: Uncertain Relieved by: Nothing Associated Symptoms Associated Symptoms: Uncertain Narrative Narrative: Patient is an elderly woman who fell and had a fractured hip. She was discharged from the hospital because she declined seeing care and requested home health. Physical therapy did see her. Patient now presents because of change in mental status. Apparently she had change in mental status when she had septic shock during the summer. Son says she has not done well the last couple days and is confused compared to normal. She has no complaints. She denies fever chills. Denies headache. Denies visual, ocular auditory symptoms. She denies decreased hearing. She denies neck pain. She denies cough or shortness of breath. Denies chest pain. She denies nausea, vomiting diarrhea. She denies dysuria, frequency, urgency or hematuria. She does not have a formal diagnosis of dementia. Prior similar symptoms: Yes (Septic shock January 2021) Recent Illness/Hospitalization: Yes (Hip after declined long term care/placement) [facility] Medical History Acute respiratory failure with hypoxia and hypercapnia Anemia Anxiety Arthritis Back pain Cardiology follow-up encounter Cervical radiculitis Chest pain Chronic back pain CKD (chronic kidney disease) stage 3, GFR 30-59 ml/min COPD (chronic obstructive pulmonary disease) CPAP (continuous positive airway pressure) dependence Depression Diabetes Diabetes mellitus, type II Diverticulosis Elevated troponin Emphysema, unspecified Fibromyalgia Former smoker Gallbladder sludge Gastric reflux Gastro-esophageal reflux disease without esophagitis History of echocardiogram History of hiatal hernia History of pain when walking History of renal disease History of stress test Hyperlipidemia Hypertension Injury of back Migraine headache Nicotine dependence, cigarettes, uncomplicated Normal colonoscopy On home oxygen therapy LATA (obstructive sleep apnea) Peripheral neuropathy Pulmonary embolism Shortness of breath on exertion Sleep apnea Smoker Smoking greater than 30 pack years Stage 2 moderate COPD by GOLD classification Thrombocytopenia Tobacco use Type 2 NV (myocardial infarction) Walker as ambulation aid Wears glasses Wears partial dentures Home Medications bupropion HCl (smoking deter) 150 mg PO DAILY 07/09/19 [History Last Taken 06/01/21] docusate sodium 100 mg PO BID 07/09/19 [History Last Taken 06/01/21] ferrous sulfate 325 mg PO DAILY 07/09/19 [History Last Taken 05/31/21] lamotrigine 100 mg PO DAILY 07/09/19 [History Last Taken 06/01/21] sertraline 100 mg PO DAILY 07/09/19 [History Last Taken 06/01/21] albuterol sulfate 2.5 mg INHALATION Q2H PRN PRN #3 ml 03/19/21 [Rx Last Taken 05/23/21] furosemide 40 mg tablet 40 mg PO DAILY tab 05/12/21 [History Last Taken 06/01/21] ondansetron HCl 4 mg tablet 4 mg PO Q6H PRN 05/12/21 [History Last Taken 06/01/21] sertraline 50 mg tablet 50 mg PO DAILY 05/12/21 [History Last Taken 06/01/21] simvastatin 20 mg tablet 20 mg PO DAILY 05/12/21 [History Last Taken 05/31/21] trazodone 100 mg tablet 100 mg PO QHS tab 05/12/21 [History Last Taken 05/31/21] Anoro Ellipta 1 inh INHALATION DAILY 05/18/21 [History Last Taken 06/01/21] aripiprazole 10 mg PO DAILY 05/18/21 [History Last Taken 06/01/21] benztropine 0.5 mg PO TID 05/18/21 [History Last Taken 06/01/21] omeprazole 40 mg PO DAILY 05/24/21 [History Last Taken 06/01/21] acetaminophen 1,000 mg PO BID PRN 06/01/21 [History Last Taken 06/01/21] allopurinol 300 mg PO DAILY@1200 06/01/21 [History Last Taken 06/01/21] potassium chloride 40 meq PO BID 06/01/21 [History Last Taken 06/01/21] oxycodone 5 mg PO Q6H PRN PRN 7 Days #28 tab 06/03/21 [Rx Last Taken Unknown] apixaban [Eliquis] 5 mg PO BID #60 tab 06/04/21 [Rx Last Taken Unknown] Allergy/AdvReac Type Severity Reaction Status Date / Time No Known Allergies Allergy Verified 06/06/21 18:44 Family History Mother Hypertension Father Hypertension Diabetes Surgical History Cervical vertebral fusion history EGD with ph probe (~12/09/17) History of colonoscopy (~12/05/17) History of repair of hiatal hernia History of shoulder surgery History of tubal ligation Hx of cholecystectomy Hx of hernia repair Social History household members: none Smoking Status: Former smoker quit date: 07/27/17 alcohol intake: never substance use type: does not use caffeine: No what type of physical activity do you participate in: none ROS ROS ED Review of Systems ROS Unobtainable: due to mental status Constitutional Constitutional ED: Denies chills, fever(s), subjective, sweats or weight loss Eyes Eyes: Denies blurry vision, change in vision or diplopia ENT ENT ED: Denies ear pain, rhinorrhea or sore throat Cardiovascular Cardiovascular: Denies chest pain, orthopnea or palpitations Respiratory/Chest Respiratory/Chest: Denies cough, dyspnea, dyspnea on exertion or orthopnea Gastrointestinal Gastrointestinal: Denies abdominal pain, diarrhea, nausea or vomiting Genitourinary Genitourinary ED: Denies dysuria, hematuria or urinary frequency Musculoskeletal Musculoskeletal: Denies arthralgias, back pain, myalgias or neck pain Integumentary Denies rash Neurologic Neurologic: Denies headache(s) or weakness EXAM Physical Exam Const Vital Signs: 06/06/21 18:44 06/06/21 21:11 06/06/21 22:07 Temperature 98.2 F 97 F L Temperature Source Temporal Temporal Pulse Rate 93 89 Respiratory Rate 14 18 Respiratory Effort Normal Blood Pressure 124/69 H 129/81 H Blood Pressure Mean 87 97 Pulse Ox 100 99 Oxygen Delivery Method Room Air Positive well nourished and well developed General Appearance ED: well developed and NAD; Negative for cyanotic, diap horetic or pallor HEENT Reports TM's clear and moist mucous membranes HEENT Narrative: Head is atraumatic normocephalic. Tympanic Membrane ED: Yes TM's clear Eyes PERRL and EOMs intact bilaterally General Eye ED: Negative for pale conjunctiva or scleral icterus Neck no lymphadenopathy, supple and no JVD Chest Wall inspection of chest normal and palpation of chest normal Resp normal respiratory effort and clear to auscultation bilaterally Effort and Inspection: Negative for pain with movement Cardio regular rate, regular rhythm, S1 normal heart sound, S2 normal heart sound and no murmurs GI normal to inspection, nondistended, normoactive bowel sounds, non-tender and non-distended Auscultation: normoactive bowel sounds Palpation: soft Back/Spine no CVA tenderness Cervical Spine: Negative for cervical spine tenderness Thoracic Spine / Upper Back: Negative for thoracic spinal tenderness or paraspinal muscle tenderness Lumbar Spine / Lower Back: Negative for lumbar spinal tenderness Extremity normal to inspection General Extremety ED: Negative for edema or tenderness General Extremity: Negative for edema Neuro No oriented x3 and CN's II-XII intact bilaterally Neuro Narrative: Disoriented to time Sensorium / Orientation: alert Sensory Exam: sensory level loss detected Motor Exam: strength 5/5 throughout Psych mental status grossly normal Skin Skin Narrative: Dressing is on the incision site for the hip fracture. There is surrounding ecchymosis. General Skin Exam: Negative for jaundice or pallor MDM MDM MDM Narrative Medical decision making narrative: Case management was consulted. I was informed that patient declined physical therapy at nursing facility. She requested home health. Apparently she has had a change in mental status. Will have a metabolic infectious work-up to rule out treatable cause. If negative pe r case management she will need to be brought in and have precertification for placement in nursing facility. Lab Data Attestation: I reviewed the patient's lab results. Lab results narrative: CBC is remarkable for macrocytic anemia. Comprehensive metabolic panel is remarkable for an alkaline phosphatase of 161 which is mildly elevated. Urine is unremarkable. Lactate was normal. Labs: Laboratory Results - last 24 hr 06/06/21 06/06/21 06/06/21 20:58 21:03 21:03 WBC 8.4 RBC 3.20 L Hgb 10.2 L Hct 32.2 L MCV 100.6 H MCH 31.9 MCHC 31.7 L RDW Std Deviation 65.6 H RDW Coeff of Suki 17.4 H Plt Count 289 MPV 9.1 Immature Gran % (Auto) 0.600 Neut % (Auto) 69.6 Lymph % (Auto) 19.8 [place] % (Auto) 8.3 Eos % (Auto) 1.3 Baso % (Auto) 0.4 Absolute Neuts (auto) 5.9 Absolute Lymphs (auto) 1.67 Nucleated RBC % 0 Platelet Estimate ADEQUATE RBC Morphology N CHROM Hypochromasia RARE Anisocytosis 1+ Macrocytosis 1+ Target Cells RARE Sodium 137 Potassium 3.7 Chloride 101 Carbon Dioxide 31.0 Anion Gap 5 BUN 6 L Creatinine 0.83 Estim Creat Clear Calc 53.71 Est GFR (MDRD) Af Amer 90 Est GFR (MDRD) Non-Af 74 BUN/Creatinine Ratio 7.2 L Glucose 89 Lactic Acid Calcium 9.0 Total Bilirubin 0.40 AST 18 ALT 10 L Alkaline Phosphatase 161 H Total Protein 6.3 L Albumin 2.4 L Globulin 3.9 Albumin/Globulin Ratio 0.6 L Urine Color Yellow Urine Clarity Clear Urine pH 6.5 Ur Specific [place] 1.010 Urine Protein Negative Urine Glucose (UA) Normal Urine Ketones 15 H Urine Occult Blood Negative Urine Nitrite Negative Urine Bilirubin Negative Urine Urobilinogen Normal Ur Leukocyte Esterase Negative Urine RBC 0 SEEN Urine WBC 0-5 SEEN Ur Squamous Epith Cells 0-5 SEEN Urine Bacteria 0 SEEN Urine Mucus 0 SEEN 06/06/21 21:03 WBC RBC Hgb Hct MCV MCH MCHC RDW Std Deviation RDW Coeff of Suki Plt Count MPV Immature Gran % (Auto) Neut % (Auto) Lymph % (Auto) [place] % (Auto) Eos % (Auto) Baso % (Auto) Absolute Neuts (auto) Absolute Lymphs (auto) Nucleated RBC % Platelet Estimate RBC Morphology Hypochromasia Anisocytosis Macrocytosis Target Cells Sodium Potassium Chloride Carbon Dioxide Anion Gap BUN Creatinine Estim Creat Clear Calc Est GFR (MDRD) Af Amer Est GFR (MDRD) Non-Af BUN/Creatinine Ratio Glucose Lactic Acid 0.9 Calcium Total Bilirubin AST ALT Alkaline Phosphatase Total Protein Albumin Globulin Albumin/Globulin Ratio Urine Color Urine Clarity Urine pH Ur Specific [place] Urine Protein Urine Glucose (UA) Urine Ketones Urine Occult Blood Urine Nitrite Urine Bilirubin Urine Urobilinogen Ur Leukocyte Esterase Urine RBC Urine WBC Ur Squamous Epith Cells Urine Bacteria Urine Mucus Radiography Chest X-Ray - ED: 1 View, Read by ED Physician, Unchanged, Heart, Mediastinum, Bony Structures, No Acute Disease and Chronic Changes (Evidence of lower cervical fusion noted. There is some hyperaeration.) Diagnostic Testing: Clinical Impression(s) from Imaging Studies Chest X-Ray 06/06/21 21:10 IMPRESSION: Degenerative changes, as described above. No demonstrated acute cardiopulmonary process. There is no interval change. Electronically Signed: Hossein Sosa DO at 21:39 EDT Tel [phone], Service support , Discharge Plan Triage Chief Complaint: Fall ED Provider: Darrell Banks Dx/Rx/DC Orders Clinical Impression: Adult failure to thrive, Status post closed fracture of left hip, Acute alteration in mental status Prescriptions: No Action sertraline 50 mg tablet 50 mg PO DAILY RF: 0 ondansetron HCl [Zofran] 4 mg tablet 4 mg PO Q6H PRN (Reason: Nausea) RF: 0 simvastatin 20 mg tablet 20 mg PO DAILY RF: 0 trazodone 100 mg tablet 100 mg PO QHS RF: 0 sertraline 100 MG tablet 100 mg PO DAILY RF: 0 ferrous sulfate 325 MG tablet 325 mg PO DAILY RF: 0 lamotrigine 100 MG tablet 100 mg PO DAILY RF: 0 bupropion HCl (smoking deter) 150 MG tablet extended release 12 hr 150 mg PO DAILY RF: 0 docusate sodium 100 MG capsule 100 mg PO BID RF: 0 furosemide 40 mg tablet 40 mg PO DAILY RF: 0 albuterol sulfate 2.5 mg /3 mL (0.083 %) Solution For Nebulization 2.5 mg inhalation Q2H PRN PRN (Reason: Dyspnea, wheezing) Qty: 3 RF: 0 Anoro Ellipta 62.5-25 mcg/actuation blister with device 1 inh inhalation DAILY RF: 0 benztropine 0.5 mg tablet 0.5 mg PO TID RF: 0 aripiprazole 10 mg tablet 10 mg PO DAILY RF: 0 omeprazole 40 mg capsule,delayed release(DR/EC) 40 mg PO DAILY RF: 0 potassium chloride 10 mEq tablet extended release 40 meq PO BID RF: 0 acetaminophen 500 mg Tablet 1,000 mg PO BID PRN (Reason: Pain) RF: 0 allopurinol 300 mg tablet 300 mg PO DAILY@1200 RF: 0 oxycodone 5 mg Tablet 5 mg PO Q6H PRN PRN (Reason: Pain Score 6-10) 7 Days Qty: 28 RF: 0 Eliquis 5 mg Tablet 5 mg PO BID Qty: 60 RF: 0 Primary Care Provider: Hua Mosher Referrals: Hua Mosher MD [Primary Care Provider] - Disposition Disposition: Acute Care Hospital [facility]
--- NOTE | 2021-06-06 21:05 | CM.ED ---
SHRUTHI Note Referral Source: MD Referral Reason: Discharge Planning SW was advised that patient's son, Aiden, wanted to speak to this commercial underwriter. SHRUTHI was updated by . Aiden said that patient was discharged from the PCU on Sunday and went home to her house with patient's daughter. Patient's daughter left and patient was alone for 1/2 hour until a family friend, Portia, came over and during that time frame patient fell and a neighbor found her and they called the squad. Aiden said that patient refused to come to the ED on Sunday.Aiden said that on Sunday and today patient was at the family friend, Portia's, house and patient fell at her house. Aiden said that they called Dr. Thacker's office (patient's PCP) and advised of the situation and Aiden said that the PCP agrees that patient needs to be in a SNF. Aiden said that patient's mental status has deteriorated since she broke her hip. Aiden said that patient can hold it together for 5 minutes but then after a short time will talk about things 12 years ago and being to Aiden's father. Aiden said that he is concerned that patient has dementia and appears to be having sundowning with symptoms getting worse at night. Aiden said that his mom has been diagnosed with Bipolar and Depression and is taking medication for her mental Health issues. Aiden said that patient is not eating and when she eats she dry heaves. Aiden said that patient has been scammed by individuals of money she doesn't have. Aiden said that patient was released from her hospital this summer [facility] and did not [facility] it. Aiden said that patient went to [facility] and was there until 05/10/21. Aiden said that patient thrived at [facility] and did her rehab. Aiden said that they would like patient to return to [facility] for SNF. SHRUTHI discussed that patient is her own person currently and discussed guardianship. Aiden said that he is willing to become a guardian for patient and transition social worker encouraged him to contact a sanitation technician and/or probate court to begin the paperwork. SHRUTHI also updated Aiden that patient was discharged because she requested Home Health and was doing well with PT/OT and is currently her own person to make her own decisions. Aiden said that he does not feel that patient is safe at home. SW will document this conversation for assigned transition social worker. Plan: To be determined Brenda BRENNAN
[2021-06-06 21:10] LABS: Bacteria 0 SEEN /hpf (None Seen); Mucous, Urine 0 SEEN /hpf (<or=2+); Red Blood Cells-Urine 0 SEEN /hpf (0-5)
--- NOTE | 2021-06-06 21:10 | RAD_ITS ---
STUDY: X-RAY CHEST REASON FOR EXAM: Female, 61 years old. Cough. Fall. Left hip pain. TECHNIQUE: Single AP portable view of the chest. COMPARISON: 06/01/2021. FINDINGS: The lungs are clear and expanded. There is no demonstrated pleural abnormality. Normal size heart. Normal mediastinum and praveen. Normal visualized pulmonary arteries. There is atherosclerotic calcification of the aortic arch with tortuosity. Normal visualized thoracic spine. Again seen is anterior fusion lower cervical spine. There is degenerative osteoarthritis of the bilateral shoulders. There is no demonstrated abnormality of the visualized soft tissue structures of the upper abdomen. RAD/Chest 1 View (Portable) IMPRESSION: Degenerative changes, as described above. No demonstrated acute cardiopulmonary process. There is no interval change. Electronically Signed: Hossein Sosa DO at 21:39 EDT Tel [phone], Service support ,
[2021-06-06 21:13] LABS: Color, Urine Yellow (Yellow); Glucose, Dipstick Normal (Normal); Ketone-Dipstick 15 mg/dl (Negative); Leukocyte Esterase-Dipstick Negative /ul (Negative); Nitrite-Dipstick Negative (Negative); Occult Blood-Urine Negative /ul (Negative); Protein-Dipstick Negative (Negative); Urine Bilirubin Dipstick Negative (Negative); Urine Clarity Clear (Clear); Urine Urobilinogen Normal (Normal); Urine pH 6.5 (5.0 - 8.0)
[2021-06-06 21:15] LABS: Absolute Lymphocyte Count 1.67 X10^3/uL (0.83-4.51); Absolute Neutrophil Count 5.9 X10^3/uL (2.0-7.7); Basophil# 0.03 X10^3/uL; Basophil% 0.4 % (0-1); Eosinophil# 0.11 X10^3/uL; Eosinophils% 1.3 % (0-5); Hematocrit 32.2 % (37-47); Hemoglobin 10.2 g/dL (12.0-15.0); Lymphocyte # 1.67 X10^3/ul (0.83-4.51); Lymphocyte % 19.8 % (19-41); Mean Corp Hgb Conc 31.7 g/dL (32-36); Mean Corpuscular Hgb 31.9 pg (27.0-32.0); Mean Corpuscular Volume 100.6 fL (81-99); Mean Platelet Vol. 9.1 fl (6.2-12.0); Monocyte% 8.3 % (0-10); NRBC Flagged by Analyzer 0 % (0-5); Neutrophil # 5.86 X10^3/uL (2.7-7.7); Neutrophil % 69.6 % (47-70); POSITIVE MORPHOLOGY YES; Platelet Count 289 K/mm3 (150-450); RBC Distribution Width CV 17.4 % (11.6-14.6); RBC Distribution Width SD 65.6 fl (35.1-43.9); White Blood Count 8.4 K/mm3 (4.4-11.0)
[2021-06-06 21:20] LABS: Squamous Epithelial Cells - UA 0-5 SEEN /hpf (5-10); White Blood Cells 0-5 SEEN /hpf (0-5)
[2021-06-06 21:34] LABS: ALB/GLOB Ratio 0.6 RATIO (0.9-2.4); AST(SGOT) 18 U/L (15-37); Alanine Aminotransfer ALT/SGPT 10 U/L (13-56); Albumin, Serum 2.4 g/dL (3.2-5.0); Alkaline Phosphatase 161 U/L (45-117); Anion Gap 5 (5-15); BUN 6 mg/dL (7-18); BUN/Creat Ratio 7.2 RATIO (10-20); Chloride 101 mmol/L (98-107); Creatinine, Serum 0.83 mg/dL (0.55-1.02); EST Glomerular Filtration Rate 74 mL/min (>60); Est Glom Filt Rate - Afr Amer 90 mL/min (>60); Estimated Creatinine Clearance 53.71 ml/min; Globulin 3.9 g/dL (2.2-4.2); Glucose 89 mg/dL (74-106); Potassium 3.7 mmol/L (3.5-5.1); Protein, Total 6.3 g/dL (6.4-8.2); Sodium Level 137 mmol/L (136-145)
[2021-06-06 21:36] LABS: Differential Indicated SCAN CRITERIA MET
[2021-06-06 21:39] LABS: Anisocytosis 1+; Hypochromasia RARE; Lactic Acid 0.9 mmol/L (0.4-1.9); Macrocytosis 1+; Platelet Estimate ADEQUATE (ADEQ); Red Cell Morphology N CHROM NORMAL (NORM C&C); Target Cells RARE
[2021-06-06 22:07] VITALS: BP 129/81; PULSE 89; RESP 18; TEMP 36.1; O2SAT 99
[2021-06-06 22:14] VITALS: BP 129/81; PULSE 89; RESP 18; TEMP 36.1; O2SAT 99
--- NOTE | 2021-06-06 22:30 | HP.PCM.HOS_ITS ---
HPI - General General Date of Admission: 06/06/21 Date of Service: 06/06/21 Chief Complaint: falls HPI Narrative MARGARITA JOSHI, is a 61 F who presents with 2 falls. Patient presented on with left hip pain. Patient was at home and had 2 falls after a prolonged bout with ischemic colitis and was in a fdc facility. Patient had an impacted fracture of the left subcapital femoral neck. Patient underwent a percutaneous screw fixation of the left subacute valgus impacted femoral neck fracture on the . Patient was discharged to home on the . Shortly after returning home, patient fell and EMS was called. Patient refused coming to the emergency room. Patient then fell again today and then patient was brought into the emergency room. Patient son is at bedside so much of his history is obtained through him and notes that the patient has been more confused. Patient has had a history of confusion when she had the ischemic colitis at that time. She had a hallucination today where she told her son that Alo Ortega thanked her for all her work that she did. [facility] Medical History Acute respiratory failure with hypoxia and hypercapnia Anemia Anxiety Arthritis Back pain Cardiology follow-up encounter Cervical radiculitis Chest pain Chronic back pain CKD (chronic kidney disease) stage 3, GFR 30-59 ml/min COPD (chronic obstructive pulmonary disease) CPAP (continuous positive airway pressure) dependence Depression Diabetes Diabetes mellitus, type II Diverticulosis Elevated troponin Emphysema, unspecified Fibromyalgia Former smoker Gallbladder sludge Gastric reflux Gastro-esophageal reflux disease without esophagitis History of echocardiogram History of hiatal hernia History of pain when walking History of renal disease History of stress test Hyperlipidemia Hypertension Injury of back Migraine headache Nicotine dependence, cigarettes, uncomplicated Normal colonoscopy On home oxygen therapy LATA (obstructive sleep apnea) Peripheral neuropathy Pulmonary embolism Shortness of breath on exertion Sleep apnea Smoker Smoking greater than 30 pack years Stage 2 moderate COPD by GOLD classification Thrombocytopenia Tobacco use Type 2 MD (myocardial infarction) Walker as ambulation aid Wears glasses Wears partial dentures Home Medications bupropion HCl (smoking deter) 150 mg PO DAILY 07/09/19 [History Last Taken 06/01/21] docusate sodium 100 mg PO BID 07/09/19 [History Last Taken 06/01/21] ferrous sulfate 325 mg PO DAILY 07/09/19 [History Last Taken 05/31/21] lamotrigine 100 mg PO DAILY 07/09/19 [History Last Taken 06/01/21] sertraline 100 mg PO DAILY 07/09/19 [History Last Taken 06/01/21] albuterol sulfate 2.5 mg INHALATION Q2H PRN PRN #3 ml 03/19/21 [Rx Last Taken 05/23/21] furosemide 40 mg tablet 40 mg PO DAILY tab 05/12/21 [History Last Taken 06/01/21] ondansetron HCl 4 mg tablet 4 mg PO Q6H PRN 05/12/21 [History Last Taken 06/01/21] sertraline 50 mg tablet 50 mg PO DAILY 05/12/21 [History Last Taken 06/01/21] simvastatin 20 mg tablet 20 mg PO DAILY 05/12/21 [History Last Taken 05/31/21] trazodone 100 mg tablet 100 mg PO QHS tab 05/12/21 [History Last Taken 05/31/21] Anoro Ellipta 1 inh INHALATION DAILY 05/18/21 [History Last Taken 06/01/21] aripiprazole 10 mg PO DAILY 05/18/21 [History Last Taken 06/01/21] benztropine 0.5 mg PO TID 05/18/21 [History Last Taken 06/01/21] omeprazole 40 mg PO DAILY 05/24/21 [History Last Taken 06/01/21] acetaminophen 1,000 mg PO BID PRN 06/01/21 [History Last Taken 06/01/21] allopurinol 300 mg PO DAILY@1200 06/01/21 [History Last Taken 06/01/21] potassium chloride 40 meq PO BID 06/01/21 [History Last Taken 06/01/21] oxycodone 5 mg PO Q6H PRN PRN 7 Days #28 tab 06/03/21 [Rx Last Taken Unknown] apixaban [Eliquis] 5 mg PO BID #60 tab 06/04/21 [Rx Last Taken Unknown] Allergy/AdvReac Type Severity Reaction Status Date / Time No Known Allergies Allergy Verified 06/06/21 18:44 Family History Mother Hypertension Father Hypertension Diabetes Surgical History Cervical vertebral fusion history EGD with ph probe (~12/09/17) History of colonoscopy (~12/05/17) History of repair of hiatal hernia History of shoulder surgery History of tubal ligation Hx of cholecystectomy Hx of hernia repair Social History household members: none Smoking Status: Former smoker quit date: 07/27/17 alcohol intake: never substance use type: does not use caffeine: No what type of physical activity do you participate in: none ROS ROS Narrative Patient has chronic nausea and vomiting and can only eat small amounts of food. This is unchanged. This is related with patient's history of hernia surgeries. She has been losing weight over period time. All review of systems were negative except as mentioned above in the history of present illness and the other review of systems. Vital Signs Vital Signs Vital Signs: 06/06/21 18:44 06/06/21 21:11 06/06/21 22:07 Temperature 36.8 C 36.1 C L Temperature Source Temporal Temporal Pulse Rate 93 89 Respiratory Rate 14 18 Respiratory Effort Normal Blood Pressure 124/69 H 129/81 H Blood Pressure Mean 87 97 Pulse Ox 100 99 Oxygen Delivery Method Room Air 06/06/21 22:14 Temperature 36.1 C L Temperature Source Temporal Pulse Rate 89 Respiratory Rate 18 Respiratory Effort Blood Pressure 129/81 H Blood Pressure Mean 97 Pulse Ox 99 Oxygen Delivery Method Room Air Weight Weight: 119 kg Body Mass Index (BMI) 49.6 Physical Exam Const alert and oriented x3 Constitutional Narrative: Appears older than stated age General Appearance: cooperative HEENT normocephalic and head/scalp atraumatic Resp normal respiratory effort, no retractions, no use of accessory muscles and clear to auscultation bilaterally Cardio regular rate, regular rhythm, S1 normal heart sound and S2 normal heart sound GI normal to inspection, nondistended, normoactive bowel sounds, soft to palpation, non-tender, non-distended and hepatosplenomegaly Extremity normal to inspection Skin Skin Narrative: Patient's incision was bandaged, which was not removed. Patient did have some little bit of bruising posterior. Neuro Sensorium / Orientation: alert Psych affect normal Results Lab / Micro Data Attestation: I reviewed the patient's lab results. Result Diagrams: 06/06/21 21:03 06/06/21 21:03 Labs: Laboratory Results - last 24 hr 06/06/21 20:58: Urine Color Yellow, Urine Clarity Clear, Urine pH 6.5, Ur Specific [place] 1.010, Urine Protein Negative, Urine Glucose (UA) Normal, Urine Ketones 15 H, Urine Occult Blood Negative, Urine Nitrite Negative, Urine Bilirubin Negative, Urine Urobilinogen Normal, Ur Leukocyte Esterase Negative, Urine RBC 0 SEEN, Urine WBC 0-5 SEEN, Ur Squamous Epith Cells 0-5 SEEN, Urine Bacteria 0 SEEN, Urine Mucus 0 SEEN 06/06/21 21:03: WBC 8.4, RBC 3.20 L, Hgb 10.2 L, Hct 32.2 L, MCV 100.6 H, MCH 31.9, MCHC 31.7 L, RDW Std Deviation 65.6 H, RDW Coeff of Suki 17.4 H, Plt Count 289, MPV 9.1, Immature Gran % (Auto) 0.600, Neut % (Auto) 69.6, Lymph % (Auto) 19.8, Morris % (Auto) 8.3, Eos % (Auto) 1.3, Baso % (Auto) 0.4, Absolute Neuts (auto) 5.9, Absolute Lymphs (auto) 1.67, Nucleated RBC % 0, Platelet Estimate ADEQUATE, RBC Morphology N CHROM, Hypochromasia RARE, Anisocytosis 1+, Macrocytosis 1+, Target Cells RARE 06/06/21 21:03: Sodium 137, Potassium 3.7, Chloride 101, Carbon Dioxide 31.0, Anion Gap 5, BUN 6 L, Creatinine 0.83, Estim Creat Clear Calc 53.71, Est GFR (MDRD) Af Amer 90, Est GFR (MDRD) Non-Af 74, BUN/Creatinine Ratio 7.2 L, Glucose 89, Calcium 9.0, Total Bilirubin 0.40, AST 18, ALT 10 L, Alkaline Phosphatase 161 H, Total Protein 6.3 L, Albumin 2.4 L, Globulin 3.9, Albumin/Globulin Ratio 0.6 L 06/06/21 21:03: Lactic Acid 0.9 Radiology Impression Chest X-Ray 06/06/21 21:10 IMPRESSION: Degenerative changes, as described above. No demonstrated acute cardiopulmonary process. There is no interval change. Electronically Signed: Hossein Sosa DO at 21:39 EDT Tel [phone], Service support , Assessment & Plan Assessment/Plan (1) Adult failure to thrive: (2) Status post closed fracture of left hip: (3) Encephalopathy: PLAN: 1. Failure to thrive * Patient is recovering from a left femoral neck fracture where she had a screw placement the . Prior to that, patient had a prolonged stay and fdc facilities. * Patient needs be brought in to be evaluated by therapy and have case management facilitate admission to the transitional care unit. * Infectious work-up was negative. 2. Recent hip fracture * Status post ORIF on the * Follow-up with orthopedics as outpatient 3. Encephalopathy * Waxes and wanes * On my encounter, patient alert and oriented x3 * I am concerned the patient may have some underlying dementia and discussed this with the patient's son. Told him to have that formally looked with construction stonemason. This may help him in regards to when she eventually goes back home if there is some underlying dementia at one point which she be unsafe living by herself. * Compounding this is patient is on numerous psychiatric medications and recently was started on oxycodone which could be contributing to this as well. Oxycodone will be held. 4. Depression and anxiety * Patient is on benztropine, Abilify, Wellbutrin, sertraline * Follow-up with psychiatry in regards to managing his medications 5. History of VTE * On apixaban 6. VTE prophylaxis: Not indicated as patient is already anticoagulated 7. CODE STATUS: Addressed with the patient and her son. Patient is full CODE STATUS. Charges/Coding Visit Charges OBSV E&M: 43319 Initial observation care L2
[2021-06-06 22:55] VITALS: BP 125/68; PULSE 90; RESP 16; TEMP 36.5; O2SAT 96
[2021-06-06 22:58] VITALS: BMI 21.9
[2021-06-06 23:08] VITALS: PULSE 94
--- NOTE | 2021-06-06 23:10 | PCS.PANDOC ---
PANDEMIC DOCUMENTATION INITIATED: Date: 03/21/2021 Time: 190
[2021-06-07] VITALS (7 sets, daily range): BP systolic 95–113; BP diastolic 58–63; PULSE 87–100; RESP 16–18; TEMP 36.4–37.3; O2SAT 96–99
[2021-06-07] MEDS: Benztropine Mesylate 0.5 MG TABLET PO ×3 (05:25→20:23)
[2021-06-07] MEDS: Ipratropium/Albuterol Sulfate 3 ML AMPUL.NEB INHALATION ×3 (06:36→19:46)
[2021-06-07] MEDS: Potassium Chloride Oral Tablet 20 MEQ 40 MEQ PO ×2 (08:23→16:33)
[2021-06-07] MEDS: buPROPion (XL) 150 MG TABLET.XL PO (08:24)
[2021-06-07] MEDS: Furosemide 40 MG Tablet PO (08:24)
[2021-06-07] MEDS: Atorvastatin Calcium 10 MG Tablet PO (08:24)
[2021-06-07] MEDS: ARIPiprazole 10 MG Tablet PO (08:24)
[2021-06-07] MEDS: Sertraline 50 MG Tablet 150 MG PO (08:24)
[2021-06-07] MEDS: lamoTRIgine 100 MG Tablet PO (08:25)
[2021-06-07] MEDS: Pantoprazole Sodium 40 MG Tablet PO (08:25)
[2021-06-07] MEDS: APIXABAN 5 MG TABLET PO ×2 (08:25→20:23)
[2021-06-07] MEDS: Docusate Sodium 100 MG Capsule PO ×2 (08:26→20:23)
[2021-06-07] MEDS: Acetaminophen 325 MG Tablet 650 MG PO ×2 (08:30→20:23)
--- NOTE | 2021-06-07 10:02 | PN.HOSP_ITS ---
Subjective Subjective Patient with admitted with left hip pain. Patient had left hip fracture status post surgery after percutaneous screw fixation. Patient also had altered mental status, confusion and hallucination. Patient denies burning micturition. Objective Data Objective Data Vital Signs: Vital Signs Temp Pulse Resp BP Pulse Ox 97.5 F L 95 16 109/62 99 06/07/21 08:41 06/07/21 08:41 06/07/21 08:41 06/07/21 08:41 06/07/21 08:41 Oxygen Delivery Method Room Air Weight: 116 lb 2.938 oz Body Mass Index (BMI) 21.9 Intake & Output: Intake and Output for Last 24 Hours 06/05/21 06/06/21 06/07/21 23:59 23:59 23:59 Intake Total Output Total 0 / 0 Balance Lab / Micro Data Result Diagrams: 06/06/21 21:03 06/06/21 21:03 Labs: Laboratory Results - last 24 hr 06/06/21 20:58: Urine Color Yellow, Urine Clarity Clear, Urine pH 6.5, Ur Specific [place] 1.010, Urine Protein Negative, Urine Glucose (UA) Normal, Urine Ketones 15 H, Urine Occult Blood Negative, Urine Nitrite Negative, Urine Bilirubin Negative, Urine Urobilinogen Normal, Ur Leukocyte Esterase Negative, Urine RBC 0 SEEN, Urine WBC 0-5 SEEN, Ur Squamous Epith Cells 0-5 SEEN, Urine Bacteria 0 SEEN, Urine Mucus 0 SEEN 06/06/21 21:03: WBC 8.4, RBC 3.20 L, Hgb 10.2 L, Hct 32.2 L, MCV 100.6 H, MCH 31.9, MCHC 31.7 L, RDW Std Deviation 65.6 H, RDW Coeff of Suki 17.4 H, Plt Count 289, MPV 9.1, Immature Gran % (Auto) 0.600, Neut % (Auto) 69.6, Lymph % (Auto) 19.8, Jack % (Auto) 8.3, Eos % (Auto) 1.3, Baso % (Auto) 0.4, Absolute Neuts (auto) 5.9, Absolute Lymphs (auto) 1.67, Nucleated RBC % 0, Platelet Estimate ADEQUATE, RBC Morphology N CHROM, Hypochromasia RARE, Anisocytosis 1+, Macrocytosis 1+, Target Cells RARE 06/06/21 21:03: Sodium 137, Potassium 3.7, Chloride 101, Carbon Dioxide 31.0, Anion Gap 5, BUN 6 L, Creatinine 0.83, Estim Creat Clear Calc 53.71, Est GFR (MDRD) Af Amer 90, Est GFR (MDRD) Non-Af 74, BUN/Creatinine Ratio 7.2 L, Glucose 89, Calcium 9.0, Total Bilirubin 0.40, AST 18, ALT 10 L, Alkaline Phosphatase 161 H, Total Protein 6.3 L, Albumin 2.4 L, Globulin 3.9, Albumin/Globulin Ratio 0.6 L 06/06/21 21:03: Lactic Acid 0.9 Radiography Diagnostic Testing: Radiology Impression Chest X-Ray 06/06/21 21:10 IMPRESSION: Degenerative changes, as described above. No demonstrated acute cardiopulmonary process. There is no interval change. Electronically Signed: Hossein Sosa at 21:39 EDT Tel [phone], Service support , Physical Exam Narrative General: Patient was sleeping but woke up. Oriented x3. No hallucination HEENT: Atraumatic, PERRLA, EOMI, Normocephalic Oral: No Gingival or Mucosal Lesions/ Ulcerations Neck: Supple, No JVD, Negative Carotid Bruits Lungs: Air entry diminished in bilateral lung bases. No crepitation/rhonchi Cardiovascular: Regular rate, Regular Rhythm, Normal S1, Normal S2, No murmurs Abdomen: Bowel Sounds Present, Soft, Non Tender, Non-Distended : No renal angle tenderness. No suprapubic tenderness. Extremities: No edema, Capillary Refill Less than 3 Seconds Skin: Left hip has dressing. Is bandaged. No soakage of dressing. Musculoskeletal: No Tenderness to Palpation of Joints or Extremities Neurological: Cranial nerves II-XII grossly intact, DTR 2+/4 and Symmetrical, Neuro grossly intact Psych/Mental Status: Flat affect Assessment & Plan Assessment/Plan (1) Adult failure to thrive: (2) Status post closed fracture of left hip: (3) Encephalopathy: PLAN: 1. Failure to thrive with recent history of left hip impacted subcapital hip fracture status post screw fixation on 06/02. PT and OT evaluation. May need SNF placement, TCU. Infectious work-up negative 2. Recent hip fracture * Status post ORIF on the * Follow-up with orthopedics as outpatient 3. Encephalopathy: Waxing and waning probably delirium. Patient might have u nderlying dementia. Patient is also numerous psychiatric medications. Oxycodone is ordered. 4. Depression and anxiety * Patient is on benztropine, Abilify, Wellbutrin, sertraline * Follow-up with psychiatry in regards to managing his medications 5. History of VTE * On apixaban 6. VTE prophylaxis: Not indicated as patient is already anticoagulated 7. CODE STATUS: Patient is full CODE STATUS. Charges/Coding Visit Charges Inpatient E&M: 04605 Subs Hosp L2
--- NOTE | 2021-06-07 11:29 | CASEMGMT ---
painting trades worker met w/pt and son at the bedside, reviewed discharge plan. Both are in agreement with pt going to [facility] from here. SW explained will send referral and once pt has PT/OT, if [facility] can take pt, they will start precert. Both state understanding. SW faxed referral to Maria Elena at [facility]. SW called Maria Elena to let her know the referral is coming, and will follow up w/PT and OT once completed. SW did review w/Maria Elena the situation, that pt was here last week, went home, fell twice, and is back in the hospital now. If [employer] will not authorize pt to come, they can try under pt's [employer] insurance. SHRUTHI will continue to follow. MIGUEL Robles
[2021-06-07] MEDS: Allopurinol 300 MG Tablet PO (11:45)
[2021-06-07] MEDS: Ferrous Sulfate 325 MG Tablet PO (11:45)
--- NOTE | 2021-06-07 16:06 | CASEMGMT ---
Pt did see PT/OT, pt walked with contact guard. There is concern that [employer] may not authorize pt for [facility]. Once the PT/OT evaluations are entered SW will fax to [facility]. SHRUTHI did let Maria Elena at [facility] know that pt completed PT/OT evaluations and once they are entered will be faxed over, let her know this SW's concern that [employer] may not approve. Maria Elena had said earlier will try through pt's Medicaid if [employer] will not approve. SHRUTHI called son Brody, let him know the above information, that pt had PT/OT and the concern is [employer] may not approve. SHRUTHI let Brody know that if [employer] does not approve, Maria Elena at [facility] had said she will try to get it approved through pt's secondary insurance, [facility] [place]. Son states understanding. MIGUEL Robles
[2021-06-07] MEDS: traZODone 100 MG Tablet PO (20:23)
[2021-06-08] VITALS (10 sets, daily range): BP systolic 91–124; BP diastolic 64–72; PULSE 78–102; RESP 14–18; TEMP 36.2–36.8; O2SAT 97–100
[2021-06-08] MEDS: Benztropine Mesylate 0.5 MG TABLET PO ×3 (05:40→23:18)
[2021-06-08] MEDS: Ipratropium/Albuterol Sulfate 3 ML AMPUL.NEB INHALATION ×3 (07:06→19:02)
[2021-06-08] MEDS: Potassium Chloride Oral Tablet 20 MEQ 40 MEQ PO ×2 (08:40→17:50)
[2021-06-08] MEDS: Acetaminophen 325 MG Tablet 650 MG PO ×2 (08:42→17:50)
--- NOTE | 2021-06-08 10:14 | CASEMGMT ---
Social Work Therapy evals faxed to Maria Elena at [facility] and VM left informing of fax and to please start precert. SW will await determination from insurance company. NEVIN Esparza
--- NOTE | 2021-06-08 10:20 | CASEMGMT ---
MICHAEL STERLING attempted to complete NIX at this time. Patient is confused at time. RN HALLIE attempted to call conrad Skinner, no answer, voice message left with return contact information. Will attempt again at later time.
[2021-06-08] MEDS: lamoTRIgine 100 MG Tablet PO (10:54)
[2021-06-08] MEDS: APIXABAN 5 MG TABLET PO ×2 (10:54→23:18)
[2021-06-08] MEDS: ARIPiprazole 10 MG Tablet PO (10:54)
[2021-06-08] MEDS: Pantoprazole Sodium 40 MG Tablet PO (10:54)
[2021-06-08] MEDS: Furosemide 40 MG Tablet PO (10:54)
[2021-06-08] MEDS: buPROPion (XL) 150 MG TABLET.XL PO (10:54)
[2021-06-08] MEDS: Sertraline 50 MG Tablet 150 MG PO (10:54)
[2021-06-08] MEDS: Docusate Sodium 100 MG Capsule PO ×2 (10:54→23:19)
[2021-06-08] MEDS: Allopurinol 300 MG Tablet PO (10:56)
[2021-06-08] MEDS: Ferrous Sulfate 325 MG Tablet PO (10:56)
--- NOTE | 2021-06-08 13:30 | CASEMGMT ---
MICHAEL STERLING received call back from son Brody Fisher to completed NIX form via phone. MICHAEL STERLING explained NIX form to son, son voiced understanding. Brody gave telephone consent for NIX form. Patient provided copy of NIX form. Tiago Skinner had no further questions or concerns at this time.
--- NOTE | 2021-06-08 15:35 | PN.HOSP_ITS ---
Subjective Subjective Patient is doing good. No acute issues. Objective Data Objective Data Vital Signs: Vital Signs Temp Pulse Resp BP Pulse Ox 97.6 F L 97 16 101/64 97 06/08/21 11:02 06/08/21 13:14 06/08/21 13:14 06/08/21 11:02 06/08/21 11:02 Oxygen Delivery Method Room Air Weight: 116 lb 2.938 oz Body Mass Index (BMI) 21.9 Intake & Output: Intake and Output for Last 24 Hours 06/06/21 06/07/21 06/08/21 23:59 23:59 23:59 Intake Total 380 / 380 480 / 480 Output Total 0 / 0 Balance 380 / 380 480 / 480 Medical Nutrition Assessment Dietitian: Malnutrition Criteria Met Start: 06/07/21 13:22 Freq: Status: Active Protocol: Document 06/07/21 13:22 RMA (Rec: 06/07/21 13:22 RMA [id number]) Nutrition Malnutrition Evidence of Malnutrition Exists Yes Malnutrition (severe): Acute Illness/Injury Evidenced By Suboptimal Energy Intake ( Severe),Weight Loss (Severe) Clinical Problem Acute Disease or Injury Related Malnutrition Etiology Severe protein/calorie malnutrition in the context of acute injury/hip fx related to decreased appetite, inadequate oral intake and failure to thrive Signs/Symptoms as evidenced by poor oral intake x past week less than 50% of meals, PO meeting less than 50% estimated nutrition needs and ~3% wt loss x 1 week . Status Active Problem Recommendation Dietitian Recommendations/Changes Continue liberalized regular diet. Continue ensure enlive w/ medpass. Will add ensure pudding/magic cup w/ meals as tolerated for additional protein/calories if consumed. Lab / Micro Data Result Diagrams: 06/06/21 21:03 06/06/21 21:03 Physical Exam Narrative General: Awake oriented x3. No hallucination HEENT: Atraumatic, PERRLA, EOMI, Normocephalic Oral: No Gingival or Mucosal Lesions/ Ulcerations Neck: Supple, No JVD, Negative Carotid Bruits Lungs: Air entry diminished in bilateral lung bases. No crepitation/rhonchi Cardiovascular: Regular rate, Regular Rhythm, Normal S1, Normal S2, No murmurs Abdomen: Bowel Sounds Present, Soft, Non Tender, Non-Distended : No renal angle tenderness. No suprapubic tenderness. Extremities: No edema, Capillary Refill Less than 3 Seconds Skin: Left hip has dressing. Is bandaged. No soakage of dressing. Musculoskeletal: No Tenderness to Palpation of Joints or Extremities Neurological: Cranial nerves II-XII grossly intact, DTR 2+/4 and Symmetrical Psych/Mental Status: Flat affect Assessment & Plan Assessment/Plan (1) Adult failure to thrive: (2) Status post closed fracture of left hip: (3) Encephalopathy: PLAN: 1. Failure to thrive with recent history of left hip impacted subcapital hip fracture status post screw fixation on 06/02. PT and OT rey luation. May need SNF placement, TCU. Infectious work-up negative PT and OT to continue. Plan to discharge when pre-CERT is available. 2. Recent hip fracture * Status post ORIF on the * Follow-up with orthopedics as outpatient 3. Encephalopathy: Waxing and waning probably delirium. Patient might have underlying dementia. Patient is also numerous psychiatric medications. Oxycodone is ordered. 4. Depression and anxiety * Patient is on benztropine, Abilify, Wellbutrin, sertraline * Follow-up with psychiatry in regards to managing his medications 5. History of VTE * On apixaban 6. VTE prophylaxis: Not indicated as patient is already anticoagulated 7. CODE STATUS: Patient is full CODE STATUS. Charges/Coding Visit Charges Inpatient E&M: 10129 Subs Hosp L2
[2021-06-08] MEDS: traZODone 100 MG Tablet PO (23:18)
[2021-06-08] MEDS: Atorvastatin Calcium 10 MG Tablet PO (23:19)
[2021-06-09 04:04] VITALS: BP 117/69; PULSE 90; RESP 16; TEMP 36.6; O2SAT 94
[2021-06-09] MEDS: Benztropine Mesylate 0.5 MG TABLET PO ×2 (05:58→13:41)
[2021-06-09 07:19] VITALS: PULSE 89; RESP 16; O2SAT 95
[2021-06-09] MEDS: Ipratropium/Albuterol Sulfate 3 ML AMPUL.NEB INHALATION (07:19)
--- NOTE | 2021-06-09 08:41 | PN.HOSP_ITS ---
Subjective Subjective Patient had a recent left hip surgery. Complain of groin pain on physical therapy. Patient had fall and also had bruise on the right lares. Objective Data Objective Data Vital Signs: Vital Signs Temp Pulse Resp BP Pulse Ox 97.8 F 89 16 117/69 95 06/09/21 04:04 06/09/21 07:19 06/09/21 07:19 06/09/21 04:04 06/09/21 07:19 Oxygen Delivery Method Room Air Weight: 116 lb 2.938 oz Body Mass Index (BMI) 21.9 Intake & Output: Intake and Output for Last 24 Hours 06/07/21 06/08/21 06/09/21 23:59 23:59 23:59 Intake Total 380 / 380 720 / 720 Output Total 0 / 0 0 / 0 Balance 380 / 380 720 / 720 Medical Nutrition Assessment Dietitian: Malnutrition Criteria Met Start: 06/07/21 13:22 Freq: Status: Active Protocol: Document 06/07/21 13:22 RMA (Rec: 06/07/21 13:22 RMA [id number]) Nutrition Malnutrition Evidence of Malnutrition Exists Yes Malnutrition (severe): Acute Illness/Injury Evidenced By Suboptimal Energy Intake ( Severe),Weight Loss (Severe) Clinical Problem Acute Disease or Injury Related Malnutrition Etiology Severe protein/calorie malnutrition in the context of acute injury/hip fx related to decreased appetite, inadequate oral intake and failure to thrive Signs/Symptoms as evidenced by poor oral intake x past week less than 50% of meals, PO meeting less than 50% estimated nutrition needs and ~3% wt loss x 1 week . Status Active Problem Recommendation Dietitian Recommendations/Changes Continue liberalized regular diet. Continue ensure enlive w/ medpass. Will add ensure pudding/magic cup w/ meals as tolerated for additional protein/calories if consumed. Lab / Micro Data Result Diagrams: 06/06/21 21:03 06/06/21 21:03 Physical Exam Narrative General: Awake oriented x3. No hallucination HEENT: Atraumatic, PERRLA, EOMI, Normocephalic Oral: No Gingival or Mucosal Lesions/ Ulcerations Neck: Supple, No JVD, Negative Carotid Bruits Lungs: Air entry diminished in bilateral lung bases. No crepitation/rhonchi Cardiovascular: Regular rate, Regular Rhythm, Normal S1, Normal S2, No murmurs Abdomen: Bowel Sounds Present, Soft, Non Tender, Non-Distended : No renal angle tenderness. No suprapubic tenderness. Extremities: No edema, Capillary Refill Less than 3 Seconds Skin: Left hip has dressing. Small right lares bruise after fall. No soakage of dressing. Musculoskeletal: No Tenderness to Palpation of Joints or Extremities Neurological: Cranial nerves II-XII grossly intact, DTR 2+/4 and Symmetrical Psych/Mental Status: Flat affect Assessment & Plan Assessment/Plan (1) Adult failure to thrive: (2) Status post closed fracture of left hip: (3) Encephalopathy: PLAN: 1. Failure to thrive with recent history of left hip impacted subcapital hip fracture status post screw fixation on 06/02. PT and OT evaluation. May need SNF placement, TCU. Urine culture shows more than 100,000 on 05/18 when she came for her ER visit for abnormal labs of hypokalemia. Patient was given Macrobid but urine sensitivity shows resistance. Currently patient does not have burning micturition. She has chronic urinary incontinence and increased frequency. No fever. No indication for antibiotic heart urine testing. UA on 06/06 was negative PT and OT to continue. 2. Recent hip fracture * Status post ORIF on the * Follow-up with orthopedics as outpatient 3. Encephalopathy: Waxing and waning probably delirium. Patient might have underlying dementia. Patient is also numerous psychiatric medications. Oxycodone is ordered. 4. Depression and anxiety * Patient is on benztropine, Abilify, Wellbutrin, sertraline * Follow-up with psychiatry in regards to managing his medications 5. History of VTE * On apixaban 6. VTE prophylaxis: Not indicated as patient is already anticoagulated 7. CODE STATUS: Patient is full CODE STATUS. Charges/Coding Visit Charges Inpatient E&M: 46778 Subs Hosp L2
--- NOTE | 2021-06-09 08:45 | CASEMGMT ---
Addendum entered by Breanna Bobby 06/09/21 13:36: Social Work Call placed to Maria Elena at [facility] who states precert has been obtained. Physician notified and plans to discharge today. SW notified pt and pt son Brody and they are agreeable to discharge to [facility]. PASSRR completed in [employer] system and faxed, along with orders to [facility]. [facility] arranged with [facility] for wheelchair transport at 1600. Nursing, pt son and [facility] notified. NEVIN Esparza Original Note: Social Work VM left with Maria Elena at [facility] inquiring about precert for insurance. SW will await return call. NEVIN Esparza
[2021-06-09 09:18] VITALS: BP 95/64; PULSE 102; RESP 16; TEMP 36.4; O2SAT 96
[2021-06-09] MEDS: APIXABAN 5 MG TABLET PO (10:51)
[2021-06-09] MEDS: Pantoprazole Sodium 40 MG Tablet PO (10:51)
[2021-06-09] MEDS: Docusate Sodium 100 MG Capsule PO (10:51)
[2021-06-09] MEDS: lamoTRIgine 100 MG Tablet PO (10:51)
[2021-06-09] MEDS: ARIPiprazole 10 MG Tablet PO (10:51)
[2021-06-09] MEDS: Furosemide 40 MG Tablet PO (10:51)
[2021-06-09] MEDS: Potassium Chloride Oral Tablet 20 MEQ 40 MEQ PO (10:51)
[2021-06-09] MEDS: Acetaminophen 325 MG Tablet 650 MG PO ×2 (10:52→16:33)
[2021-06-09] MEDS: buPROPion (XL) 150 MG TABLET.XL PO (10:52)
[2021-06-09] MEDS: Sertraline 50 MG Tablet 150 MG PO (10:52)
--- NOTE | 2021-06-09 10:57 | PCM.TXEXTCAR ---
Diet 06/06/21 22:56 Diet: Regular - General Food consistency:: Regular Liquid Consistency:: Regular/Thin Is pt able to select menu?: No Routine Orders/Code Status Suppository Type: Dulcolax 10mg Suppository Frequency: Daily PRN Code Status: Full Code Wound(s) left hip: Wound Type: Surgical Incision left forarm: Wound Type: Skin Tear right lares: Wound Type: Skin Tear Therapies Weight Bearing: Weight bearing as tolerated Extremity Affected:: Bilateral Lower Physical Therapy: Eval and Treat Occupational Therapy: Eval and Treat Speech Therapy: Eval and Treat Problem/Diagnosis (1) Adult failure to thrive: Status: Acute (2) Status post closed fracture of left hip: Status: Acute (3) Encephalopathy: Status: Acute Allergies/Procedures Done in Hospital Allergies No Known Allergies Allergy (Verified 06/06/21 18:44) Type of Care/Length of Stay Estimated LOS: Convalescent Care Less Than 30 days Type of Care Needed: Skilled Rehab Potential: Good Prognosis: Good Additional Orders/Day of Discharge Day of Discharge: 06/09/21 Dietary and Speech Recommendations Dietitian Recommendations/Changes: Continue liberalized regular diet. Continue ensure enlive w/ medpass. Will add ensure pudding/magic cup w/ meals as tolerated for additional protein/calories if consumed. Discharge Plan Admission Admit Date/Time: 06/06/21 22:25 Primary Reason for Your Visit: Fall, recent left hipFracture status post screw fixation surgery Attending Provider: Colby Chapman Primary Care Provider: Hua Mosher Discharge Orders/Prescriptions Prescriptions: Continued sertraline 50 mg tablet 50 mg PO DAILY RF: 0 ondansetron HCl [Zofran] 4 mg tablet 4 mg PO Q6H PRN (Reason: Nausea) RF: 0 simvastatin 20 mg tablet 20 mg PO DAILY RF: 0 trazodone 100 mg tablet 100 mg PO QHS RF: 0 sertraline 100 MG tablet 100 mg PO DAILY RF: 0 ferrous sulfate 325 MG tablet 325 mg PO DAILY RF: 0 lamotrigine 100 MG tablet 100 mg PO DAILY RF: 0 bupropion HCl (smoking deter) 150 MG tablet extended release 12 hr 150 mg PO DAILY RF: 0 docusate sodium 100 MG capsule 100 mg PO BID RF: 0 furosemide 40 mg tablet 40 mg PO DAILY RF: 0 albuterol sulfate 2.5 mg /3 mL (0.083 %) Solution For Nebulization 2.5 mg inhalation Q2H PRN PRN (Reason: Dyspnea, wheezing) Qty: 3 RF: 0 Anoro Ellipta 62.5-25 mcg/actuation blister with device 1 inh inhalation DAILY RF: 0 benztropine 0.5 mg tablet 0.5 mg PO TID RF: 0 aripiprazole 10 mg tablet 10 mg PO DAILY RF: 0 omeprazole 40 mg capsule,delayed release(DR/EC) 40 mg PO DAILY RF: 0 potassium chloride 10 mEq tablet extended release 40 meq PO BID RF: 0 acetaminophen 500 mg Tablet 1,000 mg PO BID PRN (Reason: Pain) RF: 0 allopurinol 300 mg tablet 300 mg PO DAILY@1200 RF: 0 oxycodone 5 mg Tablet 5 mg PO Q6H PRN PRN (Reason: Pain Score 6-10) 7 Days Qty: 28 RF: 0 Eliquis 5 mg Tablet 5 mg PO BID Qty: 60 RF: 0 Referrals / Follow Up: Hua Mosher MD [Primary Care Provider] - Within 2 Weeks Ricardo Roca DO [STAFF PHYSICIAN] - In 1 Week (for left hip surgery) Disposition Disposition (needs filled in before D/C Order can be placed[facility]
--- NOTE | 2021-06-09 11:48 | PCM.DC.SUM ---
Providers Date of Admission: 06/06/21 Primary Care Physician: Dr. Hua Mosher MD Reason For Visit: FAILURE TO THRIVE Diagnosis Discharge Diagnosis (1) Adult failure to thrive: Status: Acute Code(s): R62.7 - Adult failure to thrive (2) Status post closed fracture of left hip: Status: Acute Code(s): Z87.81 - Personal history of (healed) traumatic fracture (3) Encephalopathy: Status: Acute Code(s): G93.40 - Encephalopathy, unspecified Medications at Discharge Home Medications bupropion HCl (smoking deter) 150 mg PO DAILY 07/09/19 docusate sodium 100 mg PO BID 07/09/19 ferrous sulfate 325 mg PO DAILY 07/09/19 lamotrigine 100 mg PO DAILY 07/09/19 sertraline 100 mg PO DAILY 07/09/19 albuterol sulfate 2.5 mg INHALATION Q2H PRN PRN #3 ml 03/19/21 furosemide 40 mg tablet 40 mg PO DAILY tab 05/12/21 ondansetron HCl 4 mg tablet 4 mg PO Q6H PRN 05/12/21 sertraline 50 mg tablet 50 mg PO DAILY 05/12/21 simvastatin 20 mg tablet 20 mg PO DAILY 05/12/21 trazodone 100 mg tablet 100 mg PO QHS tab 05/12/21 Anoro Ellipta 1 inh INHALATION DAILY 05/18/21 aripiprazole 10 mg PO DAILY 05/18/21 benztropine 0.5 mg PO TID 05/18/21 omeprazole 40 mg PO DAILY 05/24/21 acetaminophen 1,000 mg PO BID PRN 06/01/21 allopurinol 300 mg PO DAILY@1200 06/01/21 potassium chloride 40 meq PO BID 06/01/21 oxycodone 5 mg PO Q6H PRN PRN 7 Days #28 tab 06/03/21 Eliquis 5 mg PO BID #60 tab 06/04/21 Hospital Course Summary of Care Provided Hospital Course: Patient is 60-year-old female with recurrent to fall and recent left hip fracture status post screw fixation readmitted for failure to thrive and general weakness. 1. Failure to thrive with recent history of left hip impacted subcapital hip fracture status post screw fixation on 06/02. PT and OT evaluation. May need SNF placement, TCU. Urine culture shows Proteus mirabilis more than 100,000 on 05/18 when she came for her ER visit for abnormal labs of hypokalemia. Patient was given Macrobid but urine sensitivity shows resistance. Currently patient does not have burning micturition. She has chronic urinary incontinence and increased frequency. No fever. No indication for antibiotic. UA on 06/06 was negative PT and OT to continue. 2. Recent hip fracture Status post ORIF on the Follow-up with orthopedics as outpatient 3. Encephalopathy: Waxing and waning probably delirium. Patient might have underlying dementia. Patient is also numerous psychiatric medications. Oxycodone is ordered. 4. Depression and anxiety Patient is on benztropine, Abilify, Wellbutrin, sertraline Follow-up with psychiatry in regards to managing his medications 5. 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 VTE prophylaxis: Not indicated as patient is already anticoagulated 7. CODE STATUS: Patient is full CODE STATUS. Discharge medication reconciliation done. Discharge follow-up instructions completed. Discharge process discussed with the patient and all questions were answered to patient's satisfaction. Total time spent, exact 35 minutes on discharge meds reconciliation, examination, coordination of care with nurses and ancillary staff, review of imaging and blood test and discussion with the patient on follow-up instructions Physical Exam Narrative Please see the progress note of today. Physical exam findings are well documented in there. Medical Records Data Medical Nutrition Assessment Dietitian: Malnutrition Criteria Met Start: 06/07/21 13:22 Freq: Status: Active Protocol: Document 06/07/21 13:22 RMA (Rec: 06/07/21 13:22 [facility] [id number]) Nutrition Malnutrition Evidence of Malnutrition Exists Yes Malnutrition (severe): Acute Illness/Injury Evidenced By Suboptimal Energy Intake ( Severe),Weight Loss (Severe) Clinical Problem Acute Disease or Injury Related Malnutrition Etiology Severe protein/calorie malnutrition in the context of acute injury/hip fx related to decreased appetite, inadequate oral intake and failure to thrive Signs/Symptoms as evidenced by poor oral intake x past week less than 50% of meals, PO meeting less than 50% estimated nutrition needs and ~3% wt loss x 1 week . Status Active Problem Recommendation Dietitian Recommendations/Changes Continue liberalized regular diet. Continue ensure enlive w/ medpass. Will add ensure pudding/magic cup w/ meals as tolerated for additional protein/calories if consumed. Weight / BMI Weight Weight: 116 lb 2.938 oz Body Mass Index (BMI) 21.9 ABG / Lab / Microbiology Data Result Diagrams: 06/06/21 21:03 06/06/21 21:03 Meaningful Use Info Meaningful Use Diagnoses (Choose all that apply): None applicable Discharge Plan Admission Admit Date/Time: 06/06/21 22:25 Primary Reason for Your Visit: Fall, recent left hipFracture status post screw fixation surgery Attending Provider: Colby Chapman Primary Care Provider: Hua Mosher Discharge Orders/Prescriptions Prescriptions: Continued sertraline 50 mg tablet 50 mg PO DAILY RF: 0 ondansetron HCl [Zofran] 4 mg tablet 4 mg PO Q6H PRN (Reason: Nausea) RF: 0 simvastatin 20 mg tablet 20 mg PO DAILY RF: 0 trazodone 100 mg tablet 100 mg PO QHS RF: 0 sertraline 100 MG tablet 100 mg PO DAILY RF: 0 ferrous sulfate 325 MG tablet 325 mg PO DAILY RF: 0 lamotrigine 100 MG tablet 100 mg PO DAILY RF: 0 bupropion HCl (smoking deter) 150 MG tablet extended release 12 hr 150 mg PO DAILY RF: 0 docusate sodium 100 MG capsule 100 mg PO BID RF: 0 furosemide 40 mg tablet 40 mg PO DAILY RF: 0 albuterol sulfate 2.5 mg /3 mL (0.083 %) Solution For Nebulization 2.5 mg inhalation Q2H PRN PRN (Reason: Dyspnea, wheezing) Qty: 3 RF: 0 Anoro Ellipta 62.5-25 mcg/actuation blister with device 1 inh inhalation DAILY RF: 0 benztropine 0.5 mg tablet 0.5 mg PO TID RF: 0 aripiprazole 10 mg tablet 10 mg PO DAILY RF: 0 omeprazole 40 mg capsule,delayed release(DR/EC) 40 mg PO DAILY RF: 0 potassium chloride 10 mEq tablet extended release 40 meq PO BID RF: 0 acetaminophen 500 mg Tablet 1,000 mg PO BID PRN (Reason: Pain) RF: 0 allopurinol 300 mg tablet 300 mg PO DAILY@1200 RF: 0 oxycodone 5 mg Tablet 5 mg PO Q6H PRN PRN (Reason: Pain Score 6-10) 7 Days Qty: 28 RF: 0 Eliquis 5 mg Tablet 5 mg PO BID Qty: 60 RF: 0 Referrals / Follow Up: Hua Mosher MD [Primary Care Provider] - Within 2 Weeks Ricardo Roca DO [STAFF PHYSICIAN] - In 1 Week (for left hip surgery) Disposition Disposition (needs filled in before D/C Order can be placed): [facility] Charges/Coding Visit Charges Inpatient E&M: 29941 Disch Hosp
[2021-06-09] MEDS: Allopurinol 300 MG Tablet PO (13:41)
[2021-06-09] MEDS: Ferrous Sulfate 325 MG Tablet PO (13:42)
[2021-06-09 15:00] VITALS: BP 110/65; PULSE 99; RESP 18; TEMP 36.6; O2SAT 95
== END 2021-06-09 16:45 | disposition skilled nursing facility (03) ==
LOC: ED 22:13 → PCU 06-07 02:55 → MS2 06-07 07:35
PROVIDERS: Emergency Provider Emergency Medicine; PCP Family Medicine; Visit Provider Internal Medicine
DX: R62.7 Adult failure to thrive (principal); G92.9 Unspecified toxic encephalopathy; M19.90 Unspecified osteoarthritis, unspecified site; J44.9 Chronic obstructive pulmonary disease, unspecified; N18.30 Chronic kidney disease, stage 3 unspecified; E11.22 Type 2 diabetes mellitus with diabetic chronic kidney disease; I12.9 Hypertensive chronic kidney disease with stage 1 through stage 4 chronic kidney disease, or unspecified chronic kidney disease; E11.40 Type 2 diabetes mellitus with diabetic neuropathy, unspecified; G89.29 Other chronic pain; M79.7 Fibromyalgia; F32.A Depression, unspecified; K21.9 Gastro-esophageal reflux disease without esophagitis; R32 Unspecified urinary incontinence; S72.012D Unspecified intracapsular fracture of left femur, subsequent encounter for closed fracture with routine healing; W19.XXXD Unspecified fall, subsequent encounter; F41.9 Anxiety disorder, unspecified; E78.5 Hyperlipidemia, unspecified; G47.33 Obstructive sleep apnea (adult) (pediatric); I25.2 Old myocardial infarction; Z68.22 Body mass index [BMI] 22.0-22.9, adult; Z79.899 Other long term (current) drug therapy; Z79.01 Long term (current) use of anticoagulants; Z87.891 Personal history of nicotine dependence; Z99.81 Dependence on supplemental oxygen
CPT/HCPCS: 71045; 80053; 81001; 83605; 85025; 87426; 94640; 97162; 97166; 97530; 97535; 97802; 99218; 99285; A4216; G0378

== ENCOUNTER 2021-10-03 06:29 | Day surgery (SDC) | payer MEDICARE, SELFPAY ==
[2021-10-03] VITALS (7 sets, daily range): BP systolic 82–100; BP diastolic 48–61; PULSE 65–70; RESP 16; TEMP 36.2–36.9; O2SAT 98–100; BMI 21.7
[2021-10-03] MEDS: Lactated Ringers 1,000 ML 15 ML IV (07:04)
--- NOTE | 2021-10-03 07:45 | EGD_PTH ---
PATIENT: MARGARITA JOSHI LOC: EN U#:[id number] AGE/SX: 61/F ROOM: RE10/03/[address]: Dr. Peyman Peoples DO : 1960 BED: DIS: 10/03/2021 SPEC #: [id number] RECD: 10/03/21 10:07 STATUS: NATALIE WETZEL #: [id number] TAYLER: 10/03/21 07:[address]: Peyman Peoples DEPT: SURGICAL PATHOLOGY RECD BY: Faviola Nazario ENTERED: 10/03/21 11:58 SP TYPE: EGD BIOPSY [facility] DR: MD Dr. Kolton De Leon MD Tissues: A - Duodenum, NOS B - Gastric mucous membrane C - Esophagus, NOS D - Transverse colon E - Cecum, NOS F - COLON BIOPSY Procedures: Surgery Specimen Level IV HEADER OPERATION: Colonoscopy, EGD ([facility]) PRE-OP DIAGNOSIS: Anemia, ataxia, failure to thrive TISSUE SUBMITTED: A ? Duodenum biopsy, B ? Antrum biopsy for histo and H. pylori, C ? Distal esophagus biopsy, D ? Transverse colon biopsy. E ? Cecal polyp biopsy, F ? Hepatic flexure biopsy MICROSCOPIC DIAGNOSIS A. Duodenum, biopsy: Chronic nonspecific inflammation. See comment. B. Gastric antrum, biopsy: Chronic gastritis. See comment. C. Distal esophagus, biopsy: Gastroesophageal junction with chronic inflammation. Focal acute inflammation. Focal goblet cell metaplasia is present. No evidence of dysplasia. See comment. D. Transverse colon, biopsy: No pathologic change. E. Cecal polyp, biopsy: Tubular adenoma. F. Colonic polyp at hepatic flexure, biopsy: Fragments of hyperplastic polyp and serrated adenoma. AM:essie 10/04/2021 COMMENT A. No significant flattening of villi is seen. Clinical correlation is suggested. B. The results of immunohistochemistry for Helicobacter pylori will be reported separately ([id number]). C. Alcian blue/PAS stain with matched control supports the above diagnosis. Immunohistochemistry ([id number]) for P53 and Ki-67 will be performed and results will be reported separately. Case has been reviewed in consultation with Dr. Vitale who concurs with the above diagnosis. IDC:SJ MICROSCOPIC DESCRIPTION Slides are reviewed. GROSS DESCRIPTION A - Received in fixative is one container labeled with the patient's name and designated duodenum biopsy. The specimen consists of multiple irregular fragments of light sapp soft tissue that in aggregate measure 0.6 x 0.6 x 0.1 cm. The specimen is totally submitted in one cassette. B - Received in fixative is one container labeled with the patient's name and designated antrum biopsy. The specimen consists of multiple irregular fragments of light sapp soft tissue that in aggregate measure 0.9 x 0.5 x 0.1 cm. The specimen is totally submitted in one cassette. C - Received in fixative is one container labeled with the patient's name and designated distal esophagus biopsy. The specimen consists of two irregular fragments of light sapp soft tissue that in aggregate measure 0.8 x 0.3 x 0.1 cm. The specimen is totally submitted in one cassette. D - Received in fixative is one container labeled with the patient's name and designated transverse colon biopsy. The specimen consists of one irregular fragment of light sapp soft tissue that measures 0.3 x 0.3 x 0.1 cm. The specimen is totally submitted in one cassette. E - Received in fixative is one container labeled with the patient's name and designated cecal polyp biopsy. The specimen consists of one irregular fragment of light sapp soft tissue that measures 0.3 x 0.3 x 0.1 cm. The specimen is totally submitted in one cassette. F - Received in fixative is one container labeled with the patient's name and designated hepatic flexure biopsy. The specimen consists of two irregular fragments of light sapp soft tissue that in aggregate measure 0.6 x 0.3 x 0.1 cm. The specimen is totally submitted in one cassette. / SJ:essie 10/03/2021 TC: CPT: 72999 x6, 74638
--- NOTE | 2021-10-03 07:45 | IMM_PTH ---
PATIENT: MARGARITA JOSHI LOC: EN U#:[id number] AGE/SX: 61/F ROOM: RE10/03/[address]: Dr. Peyman Peoples DO : 1960 BED: DIS: 10/03/2021 SPEC #: [id number] RECD: 10/03/21 12:49 STATUS: NATALIE REQ #: [id number] TAYLER: 10/03/21 07:[address]: Peyman Peoples DEPT: IMMUNOHISTOCHEMISTRY RECD BY: Brielle Chris ENTERED: 10/03/21 12:49 SP TYPE: IMMUNO OTHR DR: MD Dr. Kolton De Leon MD Tissues: B - Stomach, NOS C - Esophagus, NOS Procedures: H Pylori (initial) P53 (initial) KI-67 (add) PHYSICIAN & INSTITUTION [place] [id number] SPECIMEN INFORMATION: Tissue Source: B ? Antral biopsy, C ? Distal esophagus biopsy Clinical Info: Anemia, ataxia, failure to thrive Specimen Number: [id number] B & C CPT code: 72288 x2, 55059 METHODOLOGY: Deparaffinized sections of prefer/formalin-fixed tissue or PAP/DQ stained slides are incubated with monoclonal/polyclonal antibodies/oligonucleotide probes. Localization is made via biotin free immunoperoxidase method. Appropriate controls are performed and reacted as expected. Results on target cell population are indicated in the following table: RESULTS: ANTIBODY / CLONE RESULT Block B H Pylori (polyclonal) negative Block C P53 (DO-7) negative Ki-67 (30-9) positive, low These tests were developed and their performance characteristics determined by [facility]. They may not have been cleared or approved by the U.S. Food and Drug Administration. The FDA has determined that such clearance or approval is not necessary. The above immunohistochemical/dualISH markers are ordered and reviewed by the pathologist. INTERPRETATION: B. Antral biopsy: Negative for Helicobacter pylori organisms. C. Distal esophagus, biopsy: No evidence of dysplasia. AM:essie 10/05/2021
--- NOTE | 2021-10-03 07:50 | PCM.HP.BLA ---
History and Physical Date of Admission: 10/03/21 61 F who presents to the office today for for weight loss and nausea vomiting. She has no pre-existing history of liver disease. She does have a history of COPD. She is not on home oxygen. She has not had any recent pulmonary function test. She was diagnosed with possible dementia. Reports weight loss of around 85 pounds in the last 1.5 years. She has had several hospitalizations in this time due to significant weight loss and frequent falls. States she has had several procedures that looked in her esophagus due to repeated emesis with no effective medical therapy. Reports emesis 2-3 times a week because it feels as though food gets stuck. Denies constipation or diarrhea. Reports lower abdominal pain occurring 3-4 times a week with following BM of normal/loose consistency. CT abd/pel 05.18.21 ? finding small hiatal hernia with mild fecal retention in distal colon. Barium Swallow 03.16.21 ? with recommendation made for puree solids and thin liquids. Gastrointestinal diagnoses GERD, diverticulosis, vascular disorder of intestine, hiatal hernia. Additional history of fibromyalgia, spinal fusion, anxiety, monoarthritis, hyperparathyroidism, migraine, radiculopathy, muscle wasting, encephalopathy, bipolar, depression, HTN, CKD III, DMII with neuropathy, LATA, COPD, hypoalbuminemia, seizure disorder. ROS Const Constitutional: No anorexia, fatigue, fever(s), weight change or sleep problems Eyes Eyes: No change in vision ENT ENT: No abnormal hearing, difficulty swallowing, mouth lesions, tongue swelling or throat swelling Resp Respiratory: No cough or shortness of breath Cardio Cardiology: No chest pain at rest, chest pain with exertion, shortness of breath or dyspnea on exertion Gastro GI: No difficulty swallowing Genitourinary-Female: No difficulty urinating or burning urination Musc Musculoskeletal: No joint pain, joint swelling, muscle weakness or decreased muscle mass Skin Skin: No hair loss in leg, yellowing of the eye, itchy eyes, rash, skin ulcer or skin swelling Neuro Neurology: No abnormal hearing, abnormal movements, confusion, unsteady gait/balance or memory loss Psych Psychiatric: No anxiety, No confusion and No memory loss Endo Endocrine: No fatigue or weight change Aller/Imm Allergy/Immunologic: No itchy eyes, throat swelling or tongue swelling Shamar/Lymp Hematologic/Lymphatic: No easy bleeding, easy bruising or enlarged lymph nodes Exam Const General: cooperative and comfortable Nutritional Appearance: average body habitus and well nourished [facility] Head: normal to inspection Ears: hearing grossly normal bilaterally Nose: external nose normal Face and sinus: normal facial exam Mouth: oral mucosae normal Throat: posterior oropharynx normal Eyes General: appearance normal, both eyes and all related structures Neck Neck: normal visual inspection Chest Chest palpation & inspection: normal inspection of the chest and normal palpation of entire chest wall Resp Effort & Inspection: normal respiratory effort Auscultation: Bilateral: Clear to Auscultation Cardio Palpation: normal PMI Rate: regular rate Rhythm: regular rhythm GI Inspection: normal to inspection Auscultation: normal bowel sounds Percussion: normal to percussion Palpation: no hepatosplenomegaly Skin General: no rashes or lesions noted Neuro General: patient alert Extrem General: normal to inspection Psych Affect: normal affect Quality Reporting Tobacco Screening ([facility] 138) Smoking Status: Current every day smoker Assessment and Plan Assessment and Plan (1) Anemia: Status: Acute Orders: Orders: Vitamin B12 Today CRP Today Ferritin Today Folates, (Folic Acid) Today Iron+Iron Binding Capacity Today CBC W/Diff, Automated Today Retic Panel Count Today Erythrocyte Sed Rate Today Celiac Disease Profile Today Gastrin, Serum Today Immunoglobulin A Today Comprehensive Metabolic Profil Today LDH Today Anti-Parietal Cell AB, QN Today Intrinsic Factor Ab Today Miscellaneous Lab Procedure Today ANCA Today Plan - Dr. Morley Friend, DO: She does have a macrocytosis biochemical analysis that could possibly be associated with her anemia. The differential diagnosis for a macrocytosis involving anemia in her would be B12 deficiency, folic acid deficiency, hyper or hypothyroidism, HIV or medication induced anemia. Also an additional diagnosis could be hemolysis causing the macrocytosis. She should get iron studies including ferritin, TIBC, iron, reticulocyte count, B12, folic acid. She should also get a TSH, free T3, free T4, LDH looking for signs of hemolysis or hypo/erthyroidism contributing to anemia. (2) Ataxia: Status: Acute Plan - Dr. Peyman Peoples, DO: Chronic ataxia with falling. This could be secondary to subacute demyelinating disorder. As per the patient she has no previous history of CVA. It is unknown if she has had an MRI of the brain to look for signs of plaque formation or encephalopathy. She says that she does not drink any alcohol and has no previous history of liver disease. By her CT scan abdomen pelvis that she had back in May 2021 did not show any signs of liver disease. (3) Adult failure to thrive: Status: Acute Orders: Orders: Free T3 Today Plan - Dr. Morley Friend, DO: Her albumin is 2.4 from last biochemical analysis. With her hypoalbuminemia she will need to get a stool for alpha-1 antitrypsin to see if she has any signs of protein-losing enteropathy. She should also get spot urine to see if there is any signs of protein spillage into the ureter. Likely this is secondary to nutrition. I would suggest a 59 to 2000 kcal diet with administration of protein supplements. We will evaluate her upper and lower GI tract to see if there are any signs of neuropathy that would be contributing to her symptoms. We will also need to assess for celiac disease which can cause her symptoms. She should also check for osteopenia osteoporosis due to weight loss. I have re-examined the patient. There are no clinical changes since date of exam.
--- NOTE | 2021-10-03 08:16 | OP.EGD_ITS ---
Patient Name: Asim Fisher Procedure Date: 10/03/2021 7:47 AM Date of : 1960 Age: 61 Procedure: Upper GI endoscopy Indications: Dysphagia Providers: Peyman Peoples DO Medicines: See the Anesthesia note for documentation of the administered medications Patient Profile: This is a 61 year old female. Refer to note in patient chart for documentation of history and physical. Patient has symptoms. She is status post EGD for Chin's biopsy. Complications: No immediate complications. Procedure: Pre-Anesthesia Assessment: - Prior to the procedure, a History and Physical was performed, and patient medications and allergies were reviewed. The patient is competent. The risks and benefits of the procedure and the sedation options and risks were discussed with the patient. All questions were answered and informed consent was obtained. Patient identification and proposed procedure were verified by the physician in the pre-procedure area. Mental Status Examination: alert and oriented. Airway Examination: normal oropharyngeal airway and neck mobility. Respiratory Examination: clear to auscultation. CV Examination: normal. Prophylactic Antibiotics: The patient does not require prophylactic antibiotics. Prior Anticoagulants: The patient has taken no previous anticoagulant or antiplatelet agents. ASA Grade Assessment: II - A patient with mild systemic disease. After reviewing the risks and benefits, the patient was deemed in satisfactory condition to undergo the procedure. The anesthesia plan was to use moderate sedation / analgesia (conscious sedation). Immediately prior to administration of medications, the patient was re-assessed for adequacy to receive sedatives. The heart rate, respiratory rate, oxygen saturations, blood pressure, adequacy of pulmonary ventilation, and response to care were monitored throughout the procedure. The physical status of the patient was re-assessed after the procedure. After obtaining informed consent, the endoscope was passed under direct vision. Throughout the procedure, the patient's blood pressure, pulse, and oxygen saturations were monitored continuously. The Colonoscope was introduced through the mouth, and advanced to the second part of duodenum. The upper GI endoscopy was accomplished without difficulty. The patient tolerated the procedure well. Moderate Sedation: Moderate (conscious) sedation was administered by the endoscopy nurse and supervised by the endoscopist. The following parameters were monitored: oxygen saturation, heart rate, blood pressure, and response to care. Total physician intraservice time was 15 minutes. Scope In: 7:58:08 AM Scope Out: 8:11:29 AM Total Procedure Duration Time 0 hours 13 minutes 21 seconds Findings: LA Grade A (one or more mucosal breaks less than 5 mm, not extending between tops of 2 mucosal folds) esophagitis with no bleeding was found 34 to 35 cm from the incisors. Biopsies were taken with a cold forceps for histology. Verification of patient identification for the specimen was done. Estimated blood loss was minimal. Two benign-appearing, intrinsic stenoses were found 38 to 40 cm from the incisors. These stenoses were mildly severe and the narrowest stenosis measured 6 cm (in length). The stenoses were traversed. A guidewire was placed and the scope was withdrawn. Dilation was performed with a Savary dilator with no resistance at 54 Fr. The dilation site was examined following endoscope reinsertion and showed moderate improvement in luminal narrowing. Estimated blood loss was minimal. Patchy mild inflammation characterized by congestion (edema) and erythema was found in the gastric body. Biopsies were taken with a cold forceps for histology. Verification of patient identification for the specimen was done. Estimated blood loss was minimal. Diffuse moderately erythematous mucosa without active bleeding and with no stigmata of bleeding was found in the duodenal bulb, in the first portion of the duodenum and in the second portion of the duodenum. Impression: - LA Grade A reflux esophagitis. Biopsied. - Benign-appearing esophageal stenoses. Dilated. - Gastritis. Biopsied. - Erythematous duodenopathy. Recommendation: - Discharge patient to home. - Resume previous diet. - Continue present medications. - Await pathology results. - Repeat upper endoscopy in 1 year for surveillance. - Return to GI office. Procedure Code(s): --- Professional --- 20278, Esophagogastroduodenoscopy, flexible, transoral; with insertion of guide wire followed by passage of dilator(s) through esophagus over guide wire 07771, 59, Esophagogastroduodenoscopy, flexible, transoral; with biopsy, single or multiple 57041, 59, Moderate sedation services provided by the same physician or other qualified health career development engineer performing the diagnostic or therapeutic service that the sedation supports, requiring the presence of an independent trained observer to assist in the monitoring of the patient's level of consciousness and physiological status; initial 15 minutes of intraservice time, patient age 5 years or older CPT copyright 2017 [employer]. All rights reserved. The codes documented in this report are preliminary and upon leasing coordinator review may be revised to meet current compliance requirements. Peyman Peoples DO 10/03/2021 8:16:35 AM This report has been signed electronically. Number of Addenda: 1 Note Initiated On: 10/03/2021 7:47 AM Addendum Number: 1 Addendum Date: 04/24/2022 6:37:40 AM MAC was used for sedation during this procedure. Peyman Peoples DO 04/24/2022 6:37:48 AM This report has been signed electronically.
--- NOTE | 2021-10-03 08:17 | OP.CCLET_ITS ---
04/24/2022 Hua Mosher [address] [place] [address] Re : Upper GI endoscopy procedure for Asim Fisher Dear Dr. Mosher This procedure was performed on Sunday, October 03, 2021. My impressions and recommendations are as follows: Impressions : - LA Grade A reflux esophagitis. Biopsied. - Benign-appearing esophageal stenoses. Dilated. - Gastritis. Biopsied. - Erythematous duodenopathy. Recommendations : - Discharge patient to home. - Resume previous diet. - Continue present medications. - Await pathology results. - Repeat upper endoscopy in 1 year for surveillance. - Return to GI office. My findings are described in the full procedure note, which is enclosed. If I can be of further assistance, please feel free to contact me at . Sincerely, Peyman Peoples, 10/03/2021 8:16:35 AM This report has been signed electronically.
--- NOTE | 2021-10-03 08:44 | OP.CCLET_ITS ---
04/24/2022 Hua Mosher [address] [place] [address] Re : Colonoscopy procedure for Asim Fisher Dear Dr. Mosher This procedure was performed on Sunday, October 03, 2021. My impressions and recommendations are as follows: Impressions : -Four 1 to 2 mm polyps in the transverse colon, at the hepatic flexure and in the cecum, removed with a hot snare. Resected and retrieved. - Diverticulosis in the recto-sigmoid colon and in the sigmoid colon. Recommendations : - Discharge patient to home. - Resume previous diet. - Continue present medications. - Await pathology results. - Repeat colonoscopy in 3 years for surveillance of multiple polyps. - Return to GI office. My findings are described in the full procedure note, which is enclosed. If I can be of further assistance, please feel free to contact me at . Sincerely, Peyman Peoples, 10/03/2021 8:43:30 AM This report has been signed electronically.
--- NOTE | 2021-10-03 08:44 | OP.COLON_ITS ---
Patient Name: Asim Fisher Procedure Date: 10/03/2021 8:11 AM Date of : 1960 Age: 61 Procedure: Colonoscopy Indications: Abdominal pain in the left lower quadrant, Personal history of colonic polyps Providers: Peyman Peoples DO Patient Profile: This is a 61 year old female. Refer to note in patient chart for documentation of history and physical. Patient has symptoms. She is status post EGD for Chin's biopsy. Last Colonoscopy: 1 year ago. Complications: No immediate complications. Procedure: Pre-Anesthesia Assessment: - Prior to the procedure, a History and Physical was performed, and patient medications and allergies were reviewed. The patient is competent. The risks and benefits of the procedure and the sedation options and risks were discussed with the patient. All questions were answered and informed consent was obtained. Patient identification and proposed procedure were verified by the physician in the pre-procedure area. Mental Status Examination: alert and oriented. Airway Examination: normal oropharyngeal airway and neck mobility. Respiratory Examination: clear to auscultation. CV Examination: normal. Prophylactic Antibiotics: The patient does not require prophylactic antibiotics. Prior Anticoagulants: The patient has taken no previous anticoagulant or antiplatelet agents. ASA Grade Assessment: II - A patient with mild systemic disease. After reviewing the risks and benefits, the patient was deemed in satisfactory condition to undergo the procedure. The anesthesia plan was to use moderate sedation / analgesia (conscious sedation). Immediately prior to administration of medications, the patient was re-assessed for adequacy to receive sedatives. The heart rate, respiratory rate, oxygen saturations, blood pressure, adequacy of pulmonary ventilation, and response to care were monitored throughout the procedure. The physical status of the patient was re-assessed after the procedure. After I obtained informed consent, the scope was passed under direct vision. Throughout the procedure, the patient's blood pressure, pulse, and oxygen saturations were monitored continuously. The Colonoscope was introduced through the anus and advanced to the cecum, identified by appendiceal orifice and ileocecal valve. The colonoscopy was performed without difficulty. The patient tolerated the procedure well. The quality of the bowel preparation was good. Moderate Sedation: Moderate (conscious) sedation was administered by the endoscopy nurse and supervised by the endoscopist. The following parameters were monitored: oxygen saturation, heart rate, blood pressure, and response to care. Total physician intraservice time was 15 minutes. Scope In: 8:18:54 AM Scope Withdrawal Time 0 hours 8 minutes 13 seconds Scope Out: 8:36:37 AM Total Procedure Duration Time 0 hours 17 minutes 43 seconds Findings: The perianal and digital rectal examinations were normal. Three sessile polyps were found in the transverse colon, hepatic flexure and cecum. The polyps were 1 to 2 mm in size. These polyps were removed with a hot snare. Resection and retrieval were complete. Verification of patient identification for the specimen was done. Estimated blood loss was minimal. Three small-mouthed diverticula were found in the recto-sigmoid colon and sigmoid colon. Impression: -Four 1 to 2 mm polyps in the transverse colon, at the hepatic flexure and in the cecum, removed with a hot snare. Resected and retrieved. - Diverticulosis in the recto-sigmoid colon and in the sigmoid colon. Recommendation: - Discharge patient to home. - Resume previous diet. - Continue present medications. - Await pathology results. - Repeat colonoscopy in 3 years for surveillance of multiple polyps. - Return to GI office. Procedure Code(s): --- Professional --- 37318, Colonoscopy, flexible; with removal of tumor(s), polyp(s), or other lesion(s) by snare technique 29070, 59, Moderate sedation services provided by the same physician or other qualified health school childcare attendant performing the diagnostic or therapeutic service that the sedation supports, requiring the presence of an independent trained observer to assist in the monitoring of the patient's level of consciousness and physiological status; initial 15 minutes of intraservice time, patient age 5 years or older CPT copyright 2017 [employer]. All rights reserved. The codes documented in this report are preliminary and upon computer language coder review may be revised to meet current compliance requirements. Peyman Peoples DO 10/03/2021 8:43:30 AM This report has been signed electronically. Number of Addenda: 1 Note Initiated On: 10/03/2021 8:11 AM Addendum Number: 1 Addendum Date: 04/24/2022 6:37:57 AM MAC was used for sedation during this procedure. Peyman Peoples DO 04/24/2022 6:38:01 AM This report has been signed electronically.
[2021-10-03 08:55] LABS: Bedside Glucose 99 mg/dL (70-110)
== END 2021-10-03 23:59 | disposition home or self-care (01) ==
LOC: EN 06:30 → AC 06:32
PROVIDERS: PCP Family Medicine; Referring Provider Family Medicine; Visit Provider Internal Medicine Gastroenterology
PROC: 0DJD8ZZ Inspection of Lower Intestinal Tract, Via Natural or Artificial Opening Endoscopic (ICD-10-PCS; CPT 45378; principal; 2021-10-03 07:40)
DX: K29.50 Unspecified chronic gastritis without bleeding (principal); J44.9 Chronic obstructive pulmonary disease, unspecified; F31.9 Bipolar disorder, unspecified; E11.22 Type 2 diabetes mellitus with diabetic chronic kidney disease; E11.40 Type 2 diabetes mellitus with diabetic neuropathy, unspecified; G40.909 Epilepsy, unspecified, not intractable, without status epilepticus; N18.30 Chronic kidney disease, stage 3 unspecified; K57.30 Diverticulosis of large intestine without perforation or abscess without bleeding; K21.00 Gastro-esophageal reflux disease with esophagitis, without bleeding; F17.200 Nicotine dependence, unspecified, uncomplicated; K22.2 Esophageal obstruction; Z86.010 Personal history of colon polyps; D12.0 Benign neoplasm of cecum; Z90.49 Acquired absence of other specified parts of digestive tract; D64.9 Anemia, unspecified; D12.3 Benign neoplasm of transverse colon; M79.7 Fibromyalgia; F41.9 Anxiety disorder, unspecified; G43.909 Migraine, unspecified, not intractable, without status migrainosus; I12.9 Hypertensive chronic kidney disease with stage 1 through stage 4 chronic kidney disease, or unspecified chronic kidney disease; G47.33 Obstructive sleep apnea (adult) (pediatric); Z79.899 Other long term (current) drug therapy; G89.29 Other chronic pain; E78.5 Hyperlipidemia, unspecified
CPT/HCPCS: 45385; 43248; 43239; 82962; 87426; 88305; 88341; 88342; J7120; C1769; J2405

== ENCOUNTER 2021-10-27 12:45 | Outpatient (CLI) | payer MEDICARE, MEDICAID, SELFPAY ==
--- NOTE | 2021-10-27 12:49 | RAD_ITS ---
HISTORY: HIP FRACTURE. TECHNIQUE: XR Hip Unilateral with Pelvis when performed; 2-3 Views. # of images incl. paperwork: 3. COMPARISON: 06/01/2021. FINDINGS: OSSEOUS STRUCTURES: 3 screws transfix a chronic impacted fracture of the subcapital left femoral neck. Note that overlapping bowel shadows may obscure detail. Mineralization unremarkable. ALIGNMENT/JOINTS: No dislocation. Mild degenerative changes of the bilateral hips. RAD/HIP, UNI W/ Pelvis 2-3 Views IMPRESSION: ORIF of chronic left subcapital femoral neck fracture. at 1341 Reported and signed by: Mandy Thomas MD Electronically Signed: Mandy Thomas MD at 13:40 EDT ,
--- NOTE | 2021-10-27 12:49 | RAD_ITS ---
HISTORY: Humeral head fracture. TECHNIQUE: XR Shoulder Min 2 Views. Number of images including paperwork: 4. COMPARISON: None. FINDINGS: OSSEOUS STRUCTURES: Oblique fracture of the right humeral neck with mild impaction, overlap, and anterior displacement. Osteopenia noted Cervical spinal fusion hardware noted. JOINT SPACES: No glenohumeral dislocation or acromioclavicular subluxation. Mild degenerative change identified. SOFT TISSUES: Visualized upper lung clear. RAD/Shoulder min 2 Views IMPRESSION: Mildly displaced fracture of the right humeral neck. at 1333 Reported and signed by: Mandy Thomas MD Electronically Signed: Mandy Thomas MD at 13:32 EDT ,
[2021-10-27 15:08] LABS: Hematocrit 37.8 % (37-47); Mean Corp Hgb Conc 31.7 g/dL (32-36); Mean Corpuscular Hgb 31.7 pg (27.0-32.0); Platelet Count 237 K/mm3 (150-450); RBC Distribution Width CV 13.6 % (11.6-14.6); RBC Distribution Width SD 50.6 fl (35.1-43.9); Red Blood Count 3.78 M/mm3 (4.2-5.4); White Blood Count 9.6 K/mm3 (4.4-11.0)
[2021-10-27 15:31] LABS: Anion Gap 3 (5-15); BUN 18 mg/dL (7-18); BUN/Creat Ratio 16.7 RATIO (10-20); Calcium,Total 9.3 mg/dL (8.5-10.1); Chloride 108 mmol/L (98-107); Creatinine, Serum 1.08 mg/dL (0.55-1.02); EST Glomerular Filtration Rate 55 mL/min (>60); Est Glom Filt Rate - Afr Amer 66 mL/min (>60); Glucose 107 mg/dL (74-106); Potassium 3.1 mmol/L (3.5-5.1); Sodium Level 143 mmol/L (136-145); Thyroid Stim Hormone (TSH) 1.44 uIU/mL (0.358-3.74)
== END 2021-10-27 23:59 | disposition home or self-care (01) ==
LOC: MTLAB 12:46
PROVIDERS: PCP Family Medicine; Referring Provider Family Medicine; Visit Provider Family Medicine
DX: S72.002A Fracture of unspecified part of neck of left femur, initial encounter for closed fracture (principal); E11.22 Type 2 diabetes mellitus with diabetic chronic kidney disease; N18.30 Chronic kidney disease, stage 3 unspecified; S42.291A Other displaced fracture of upper end of right humerus, initial encounter for closed fracture
CPT/HCPCS: 36415; 73030; 73502; 80048; 84443; 85027

== ENCOUNTER 2021-11-09 15:58 | Outpatient (CLI) | payer MEDICARE, MEDICAID, SELFPAY ==
--- NOTE | 2021-11-09 16:15 | RAD_ITS ---
STUDY: X-RAY - PELVIS AND RIGHT HIP REASON FOR EXAM: Female, 61 years old. pain TECHNIQUE: 3 views of the pelvis and hip. COMPARISON: Pelvis and left hip x-rays 10/27/2021 FINDINGS: Surgical hardware with 3 surgical screws transfixing the left femoral neck. No acute fracture demonstrated. Femoral heads are normal contour. There is joint space narrowing of both hips with subchondral sclerosis, moderate on the right, mild on the left. No dislocation. Degenerative changes in the lower lumbar spine. Stool obscures the sacrum. RAD/HIP, UNI W/ Pelvis 2-3 Views IMPRESSION: Degenerative changes of the hips greater on the right. ORIF left femoral neck fracture. Electronically Signed: Tiffanie Arreguin MD at 5:30 EDT ,
== END 2021-11-09 23:59 | disposition home or self-care (01) ==
PROVIDERS: PCP Family Medicine; Referring Provider Family Medicine; Visit Provider Family Medicine
DX: M25.551 Pain in right hip (principal)
CPT/HCPCS: 73502

== ENCOUNTER → 2021-12-01 | Outpatient (CLI) | payer MEDICARE, MEDICAID, SELFPAY ==
--- NOTE | 2021-12-01 12:45 | RAD_ITS ---
STUDY: X-RAY - LUMBOSACRAL SPINE REASON FOR EXAM: Female, 61 years old. Low back pain TECHNIQUE: 6 view(s) of the lumbosacral spine were obtained. COMPARISON: 06/01/2021 FINDINGS: Since the previous study, there has been a compression fracture affecting the superior endplate of L2 which has lost approximately 10% of its height. The chronicity of this is unknown. There is no retropulsion or paraspinal mass. There is straightening of the normal lumbar lordosis. There is no substantial scoliosis. Stable grade 1 spondylolisthesis at L2-3 There is multilevel endplate spondylosis of the lumbar vertebrae. There is multi-level degenerative disc disease with multi-level disc space narrowing, most pronounced at L2-3 and L4-5. No instability on the flexion or extension views but range of motion is extremely limited. Normal bilateral sacral ala, sacroiliac joints, and visualized sacrum. There is atherosclerotic calcification of the abdominal aorta without a demonstrated aneurysm. RAD/L/S Spine w Bend Min 6 Vw IMPRESSION: Multilevel degenerative changes. Since the previous study, there is been a compression fracture of the superior endplate of L2 which is of uncertain chronicity. No retropulsion noted, no paraspinal mass. Stable grade 1 spondylolisthesis at L2-3 without instability on the flexion or extension views Electronically Signed: Lj Herring MD at 13:33 EDT ,
--- NOTE | 2021-12-01 12:45 | RAD_ITS ---
STUDY: X-RAY - PELVIS AND RIGHT HIP REASON FOR EXAM: Female, 61 years old. PAIN TECHNIQUE: XR Hip Unilateral with Pelvis when performed; 2-3 Views COMPARISON: None. FINDINGS: There is a non-specific bowel gas pattern. Normal visualized soft tissue structures. There are degenerative changes of the lumbar spine. Normal bilateral iliac wings, sacroiliac joints and visualized sacrum. Normal bilateral superior and inferior pubic rami. Normal pubic symphysis. Normal bilateral ischial tuberosities. 3 left lag screws extend from the trochanter to the femoral head. Normal acetabulum. Normal hip joint. RAD/HIP, UNI W/ Pelvis 2-3 Views IMPRESSION: No acute findings. Electronically Signed: Luis Antunez MD at 15:39 EDT ,
== END | disposition home or self-care (01) ==
PROVIDERS: PCP Family Medicine; Referring Provider Family Medicine; Visit Provider Family Medicine
DX: M51.36 Other intervertebral disc degeneration, lumbar region (principal); M25.551 Pain in right hip
CPT/HCPCS: 72114; 73502

== ENCOUNTER 2021-12-08 14:47 | Emergency (ER) | payer MEDICARE, MEDICAID, SELFPAY ==
[2021-12-08 14:47] VITALS: BP 131/84; PULSE 97; RESP 15; TEMP 36.5; O2SAT 95; BMI 23.0
--- NOTE | 2021-12-08 15:09 | CT_ITS ---
STUDY: CT BRAIN WITHOUT CONTRAST REASON FOR EXAM: Female, 61 years old. injury RADIATION DOSAGE (If Supplied By Facility): CTDIvol = ( 44.99 ) mGy, DLP = ( 762.36 ) mGycm TECHNIQUE: Transaxial CT imaging of the brain was performed without administration of intravenous contrast material. Individualized dose optimization techniques were used for this CT. COMPARISON: 06/01/2021. FINDINGS: Mild right parietal soft tissue swelling. Normal calvarium. Normal size ventricles and extra-axial spaces for the patient''s age. Normal white matter tracts of the cerebral hemispheres. Normal basal ganglia and thalami. Normal brainstem. Normal cerebellum. There is no intracranial hemorrhage. There are no findings of an acute ischemic infarction. Normal visualized paranasal sinuses. CT/Brain/Head without Contrast IMPRESSION: Soft tissue swelling, otherwise negative unenhanced CT scan of the brain. Electronically Signed: Jenna Daley MD at 16:31 EDT Reading Location ID and State: [id number] / Tel , Service support ,
--- NOTE | 2021-12-08 15:10 | EX.ED.DYSGE1 ---
HPI History of Present Illness Chief Complaint: Fall Informant: patient and family Narrative Narrative: 61-year-old female presenting to the emergency room with a chief complaint of fall. Patient reportedly tripped over her walker last night. She notes an injury to her right hip right wrist and right side of her head. No loss of conscious. No nausea vomiting. She is on Eliquis. She has been able to bear weight. No neck or back pain. She denies any abdominal or chest symptoms PFSH PFS Medical History Acute respiratory failure with hypoxia and hypercapnia Anemia Anxiety Arthritis Back pain Cardiology follow-up encounter Cervical radiculitis Chest pain Chronic back pain CKD (chronic kidney disease) stage 3, GFR 30-59 ml/min Closed fracture of left hip COPD (chronic obstructive pulmonary disease) CPAP (continuous positive airway pressure) dependence Depression Diabetes Diabetes mellitus, type II Diverticulosis Elevated troponin Emphysema, unspecified Fibromyalgia Former smoker Gallbladder sludge Gastric reflux Gastro-esophageal reflux disease without esophagitis History of echocardiogram History of hiatal hernia History of pain when walking History of renal disease History of shoulder fracture History of stress test Hyperlipidemia Hypertension Injury of back Migraine headache Nicotine dependence, cigarettes, uncomplicated Normal colonoscopy On home oxygen therapy LATA (obstructive sleep apnea) Peripheral neuropathy Pulmonary embolism Shortness of breath on exertion Sleep apnea Smoker Smoking greater than 30 pack years Stage 2 moderate COPD by GOLD classification Thrombocytopenia Tobacco use Type 2 [place] (myocardial infarction) Walker as ambulation aid Wears glasses Wears partial dentures Home Medications bupropion HCl (smoking deter) 150 mg PO DAILY 07/09/19 [History Last Taken 06/01/21] docusate sodium 100 mg PO BID 07/09/19 [History Last Taken 06/01/21] ferrous sulfate 325 mg PO DAILY 07/09/19 [History Last Taken 05/31/21] lamotrigine 100 mg PO DAILY 07/09/19 [History Last Taken 06/01/21] sertraline 100 mg PO DAILY 07/09/19 [History Last Taken 06/01/21] albuterol sulfate 2.5 mg INHALATION Q2H PRN PRN #3 ml 03/19/21 [Rx Last Taken 05/23/21] furosemide 40 mg tablet 40 mg PO DAILY tab 05/12/21 [History Last Taken 06/01/21] ondansetron HCl 4 mg tablet 4 mg PO Q6H PRN 05/12/21 [History Last Taken 06/01/21] sertraline 50 mg tablet 50 mg PO DAILY 05/12/21 [History Last Taken 06/01/21] simvastatin 20 mg tablet 20 mg PO DAILY 05/12/21 [History Last Taken 05/31/21] trazodone 100 mg tablet 100 mg PO QHS tab 05/12/21 [History Last Taken 05/31/21] Anoro Ellipta 1 inh INHALATION DAILY 05/18/21 [History Last Taken 06/01/21] aripiprazole 10 mg PO DAILY 05/18/21 [History Last Taken 06/01/21] benztropine 0.5 mg PO TID 05/18/21 [History Last Taken 06/01/21] omeprazole 40 mg PO DAILY 05/24/21 [History Last Taken 06/01/21] acetaminophen 1,000 mg PO BID PRN 06/01/21 [History Last Taken 06/01/21] allopurinol 300 mg PO DAILY@1200 06/01/21 [History Last Taken 06/01/21] Eliquis 5 mg PO BID #60 tab 06/04/21 [Rx Last Taken 09/29/21] linagliptin [Tradjenta] 5 mg PO DAILY 09/30/21 [History Last Taken Unknown] Allergy/AdvReac Type Severity Reaction Status Date / Time No Known Allergies Allergy Verified 12/08/21 14:49 Family History Mother Hypertension Father Hypertension Diabetes Surgical History Cervical vertebral fusion history EGD with ph probe (~12/09/17) History of colonoscopy (~12/05/17) History of repair of hiatal hernia History of shoulder surgery History of tubal ligation Hx of cholecystectomy Hx of hernia repair Hx of surgical procedure Social History household members: none Smoking Status: Current every day smoker tobacco type: cigarettes alcohol intake: never substance use type: does not use caffeine: No what type of physical activity do you participate in: none ROS ROS ED Constitutional Constitutional ED: Denies chills, fever(s) or weight loss Eyes Eyes: Denies change in vision or diplopia ENT ENT ED: Denies ear pain, rhinorrhea or sore throat Cardiovascular Cardiovascular: Denies chest pain, orthopnea, palpitations or racing heartbeat Respiratory/Chest Respiratory/Chest: Denies cough, dyspnea or orthopnea Gastrointestinal Gastrointestinal: Denies abdominal pain, diarrhea, nausea or vomiting Genitourinary Genitourinary ED: Denies dysuria, hematuria or urinary frequency Musculoskeletal Musculoskeletal: Reports other Details: See history of present illness ; Denies arthralgias or myalgias Integumentary Denies abscess or rash Neurologic Neurologic: Reports headache(s); Denies weakness Psychiatric Psychiatric: Denies anxiety, depression, suicidal ideation or suicidal thoughts Endocrine Endocrinology: Denies polydipsia, polyphagia or polyuria Allergic/Immunologic Allergic/Immunologic ED: Denies mouth swelling, tongue swelling or urticaria EXAM Physical Exam Const Vital Signs: 12/08/21 14:47 12/08/21 14:58 Temperature 97.7 F L Temperature Source Temporal Pulse Rate 97 Respiratory Rate 15 Respiratory Effort Normal Non-Labored Respiratory Depth Normal Respiratory Pattern Normal Blood Pressure 131/84 H Blood Pressure Mean 99 Pulse Ox 95 Oxygen Delivery Method Room Air Positive well nourished and well developed General Appearance ED: well developed HEENT Reports normocephalic, head/scalp atraumatic, TM's clear and moist mucous membranes HEENT Narrative: Contusion noted in the right parietal region trauma Tympanic Membrane ED: Yes TM's clear Eyes PERRL and EOMs intact bilaterally Neck no lymphadenopathy, supple and no JVD Resp normal respiratory effort and clear to auscultation bilaterally Cardio regular rate, regular rhythm and no murmurs GI normal to inspection, nondistended, normoactive bowel sounds and non-tender Palpation: soft Back/Spine no CVA tenderness and normal ROM Extremity Extremity Narrative: Contusion on the right wrist. No obvious deformity. Neurovascular intact. Tender to palpation over the right hip General Extremety ED: Negative for edema General Extremity: Negative for edema Neuro oriented x3 and CN's II-XII intact bilaterally Sensorium / Orientation: alert Motor Exam: strength 5/5 throughout Psych mental status grossly normal Mood & Affect: Negative for depressed or tearful Skin no rashes or lesions noted Skin Narrative: Excoriation noted in the right scapular region. chronic wound to the left forearm MDM MDM MDM Narrative Medical decision making narrative: My interpretation of the plain films of the right hip and pelvis is no acute fracture. My interpretation of the plain films of the right wrist is no acute fracture. CT the brain was negative. At this point patient will be discharged home. Instructions to follow-up as needed return if worsening or concerns Radiography Diagnostic Testing: Clinical Impression(s) from Imaging Studies Brain CT 12/08/21 15:09 IMPRESSION: Soft tissue swelling, otherwise negative unenhanced CT scan of the brain. Electronically Signed: Jenna Daley MD at 16:31 EDT , Hip/Pelvis X-Ray 12/08/21 15:33 IMPRESSION: No fractures seen. Degenerative changes. Electronically Signed: Roger Barker MD at 15:48 EDT , Wrist X-Ray 12/08/21 15:33 IMPRESSION: Soft tissue swelling. No fracture is seen. Electronically Signed: Roger Barker MD at 15:47 EDT , Discharge Plan Triage Chief Complaint: Fall ED Provider: Husam Harvey Dx/Rx/DC Orders Clinical Impression: Head injury, Fall, Anticoagulated, Contusion of right wrist, Contusion of hip, right Instructions: ED Soft Tissue Contusion, ED Head Injury (Adult) Prescriptions: No Action sertraline 50 mg tablet 50 mg PO DAILY RF: 0 ondansetron HCl [Zofran] 4 mg tablet 4 mg PO Q6H PRN (Reason: Nausea) RF: 0 simvastatin 20 mg tablet 20 mg PO DAILY RF: 0 trazodone 100 mg tablet 100 mg PO QHS RF: 0 sertraline 100 MG tablet 100 mg PO DAILY RF: 0 ferrous sulfate 325 MG tablet 325 mg PO DAILY RF: 0 lamotrigine 100 MG tablet 100 mg PO DAILY RF: 0 bupropion HCl (smoking deter) 150 MG tablet extended release 12 hr 150 mg PO DAILY RF: 0 docusate sodium 100 MG capsule 100 mg PO BID RF: 0 furosemide 40 mg tablet 40 mg PO DAILY RF: 0 albuterol sulfate 2.5 mg /3 mL (0.083 %) Solution For Nebulization 2.5 mg inhalation Q2H PRN PRN (Reason: Dyspnea, wheezing) Qty: 3 RF: 0 Anoro Ellipta 62.5-25 mcg/actuation blister with device 1 inh inhalation DAILY RF: 0 benztropine 0.5 mg tablet 0.5 mg PO TID RF: 0 aripiprazole 10 mg tablet 10 mg PO DAILY RF: 0 omeprazole 40 mg capsule,delayed release(DR/EC) 40 mg PO DAILY RF: 0 acetaminophen 500 mg Tablet 1,000 mg PO BID PRN (Reason: Pain) RF: 0 allopurinol 300 mg tablet 300 mg PO DAILY@1200 RF: 0 Eliquis 5 mg Tablet 5 mg PO BID Qty: 60 RF: 0 Tradjenta 5 mg Tablet 5 mg PO DAILY RF: 0 Primary Care Provider: Hua Mosher Referrals: Hua Mosher MD [Primary Care Provider] - As Needed Disposition Disposition: Home, Self Care
--- NOTE | 2021-12-08 15:33 | RAD_ITS ---
STUDY: X-RAY - PELVIS AND RIGHT HIP REASON FOR EXAM: Female, 61 years old. Right hip pain following a fall. TECHNIQUE: 3 views of the pelvis and hip. COMPARISON: None. FINDINGS: Moderate amount of fecal material is seen in the colon. Normal visualized soft tissue structures. Normal bilateral iliac wings, sacroiliac joints and visualized sacrum. Normal bilateral superior and inferior pubic rami. Normal pubic symphysis. Normal bilateral ischial tuberosities. Normal visualized femoral head. Normal acetabulum. There is moderate articular joint space narrowing of the hip. The patient is status post nailing of the left femoral neck. RAD/HIP, UNI W/ Pelvis 2-3 Views IMPRESSION: No fractures seen. Degenerative changes. Electronically Signed: Roger Barker MD at 15:48 EDT ,
--- NOTE | 2021-12-08 15:33 | RAD_ITS ---
STUDY: X-RAY - RIGHT WRIST REASON FOR EXAM: Female, 61 years old. Pain following a fall. TECHNIQUE: 3 view(s) of the wrist were obtained. COMPARISON: Comparison is made with prior study dated 02/19/2021. FINDINGS: Normal visualized distal radius and ulna. Normal radiocarpal articulation. Normal distal radioulnar articulation. Normal carpal bones. Normal carpal articulations. Normal carpometacarpal articulation of the thumb. Normal second through fifth carpometacarpal articulations. Normal visualized metacarpal bones. Soft tissue swelling. RAD/Wrist min 3 Views IMPRESSION: Soft tissue swelling. No fracture is seen. Electronically Signed: Roger Barker MD at 15:47 EDT ,
== END 2021-12-08 16:56 | disposition home or self-care (01) ==
PROVIDERS: Emergency Provider Emergency Medicine; PCP Family Medicine; Visit Provider Emergency Medicine
DX: S00.03XA Contusion of scalp, initial encounter (principal); J44.9 Chronic obstructive pulmonary disease, unspecified; E11.42 Type 2 diabetes mellitus with diabetic polyneuropathy; E11.22 Type 2 diabetes mellitus with diabetic chronic kidney disease; N18.30 Chronic kidney disease, stage 3 unspecified; I12.9 Hypertensive chronic kidney disease with stage 1 through stage 4 chronic kidney disease, or unspecified chronic kidney disease; S60.211A Contusion of right wrist, initial encounter; F17.210 Nicotine dependence, cigarettes, uncomplicated; S70.01XA Contusion of right hip, initial encounter; E78.5 Hyperlipidemia, unspecified; W18.09XA Striking against other object with subsequent fall, initial encounter; Z79.01 Long term (current) use of anticoagulants; Z79.899 Other long term (current) drug therapy; F41.9 Anxiety disorder, unspecified; F32.A Depression, unspecified; K21.9 Gastro-esophageal reflux disease without esophagitis; Z86.711 Personal history of pulmonary embolism; G47.33 Obstructive sleep apnea (adult) (pediatric); I25.2 Old myocardial infarction; D64.9 Anemia, unspecified; Z79.84 Long term (current) use of oral hypoglycemic drugs
CPT/HCPCS: 70450; 73110; 73502; 99282

== ENCOUNTER → 2021-12-12 | Outpatient (CLI) | payer MEDICARE, MEDICAID, SELFPAY ==
--- NOTE | 2021-12-12 16:59 | RAD_ITS ---
STUDY: X-RAY - UNILATERAL RIBS ( RIGHT ) REASON FOR EXAM: Female, 61 years old. RIB PAIN TECHNIQUE: 4 view(s) of the ribs. COMPARISON: None. FINDINGS: Normal visualized ribs without a demonstrated fracture. The visualized lung is clear and expanded. RAD/Ribs Unil 2V No CXR IMPRESSION: Normal x-ray examination of the ribs. Electronically Signed: Ramon Falcon DO at 5:27 EDT ,
--- NOTE | 2021-12-12 17:00 | RAD_ITS ---
STUDY: X-RAY CHEST REASON FOR EXAM: Female, 61 years old. RIB PAIN RIGHT SIDE TECHNIQUE: PA and lateral views of the chest. COMPARISON: 12/12/2021 FINDINGS: The lungs are clear and expanded. There is no demonstrated pleural abnormality. Normal size heart. Normal mediastinum and praveen. Normal visualized pulmonary arteries. Normal visualized aortic arch and descending thoracic aorta. Normal visualized thoracic spine. Normal visualized ribs, clavicles, and shoulders. There is no demonstrated abnormality of the visualized soft tissue structures of the upper abdomen. RAD/Chest PA and Lateral IMPRESSION: Normal x-ray examination of the chest. Electronically Signed: Ramon Falcon DO at 1:51 EDT ,
[2021-12-12 18:03] LABS: Hematocrit 38.7 % (37-47); Mean Corpuscular Hgb 31.1 pg (27.0-32.0); Mean Corpuscular Volume 100.3 fL (81-99); Mean Platelet Vol. 9.2 fl (6.2-12.0); Platelet Count 289 K/mm3 (150-450); RBC Distribution Width CV 15.2 % (11.6-14.6); RBC Distribution Width SD 55.9 fl (35.1-43.9); Red Blood Count 3.86 M/mm3 (4.2-5.4); White Blood Count 14.4 K/mm3 (4.4-11.0)
[2021-12-12 18:38] LABS: Vitamin D,25 Hydroxy 55.1 ng/mL
[2021-12-12 18:44] LABS: Anion Gap 5 (5-15); BUN 14 mg/dL (7-18); BUN/Creat Ratio 12.4 RATIO (10-20); Chloride 97 mmol/L (98-107); Creatinine, Serum 1.13 mg/dL (0.55-1.02); EST Glomerular Filtration Rate 52 mL/min (>60); Est Glom Filt Rate - Afr Amer 63 mL/min (>60); Glucose 126 mg/dL (74-106); Magnesium 2.1 mg/dL (1.6-2.6); Potassium 3.5 mmol/L (3.5-5.1); Sodium Level 137 mmol/L (136-145)
[2021-12-13 07:41] LABS: PTHIN 54.1 pg/mL (18.4-80.1)
[2021-12-13 10:19] LABS: Absolute Lymphocyte Count 1.88 X10^3/uL (0.83-4.51); Absolute Neutrophil Count 11.9 X10^3/uL (2.0-7.7); Basophil# 0.04 X10^3/uL; Basophil% 0.3 % (0-1); Eosinophil# 0.06 X10^3/uL; Eosinophils% 0.4 % (0-5); Lymphocyte # 1.88 X10^3/ul (0.83-4.51); Lymphocyte % 12.5 % (19-41); Monocyte# 1.11 X10^3/uL; Monocyte% 7.4 % (0-10); NRBC Flagged by Analyzer 0 % (0-5); Neutrophil # 11.88 X10^3/uL (2.7-7.7); Neutrophil % 79.1 % (47-70)
== END | disposition home or self-care (01) ==
PROVIDERS: PCP Family Medicine; Referring Provider Family Medicine; Visit Provider Family Medicine
DX: R07.81 Pleurodynia (principal); S32.020A Wedge compression fracture of second lumbar vertebra, initial encounter for closed fracture
CPT/HCPCS: 36415; 71046; 71100; 80048; 82306; 82330; 83735; 83970; 85025; 85027

== ENCOUNTER 2021-12-18 13:54 | Observation (INO) | payer MEDICARE, MEDICAID, SELFPAY ==
[2021-12-18] VITALS (11 sets, daily range): BP systolic 97–132; BP diastolic 64–76; PULSE 74–96; RESP 16–25; TEMP 36.3–37; O2SAT 80–100; BMI 28.0; BMI 23.4
--- NOTE | 2021-12-18 14:02 | RAD_ITS ---
STUDY: X-RAY CHEST REASON FOR EXAM: Female, 61 years old. Malaise and Fatigue TECHNIQUE: Single AP portable view of the chest. COMPARISON: 12/12/2021 FINDINGS: Status post anterior cervical discectomy and fusion lower cervical spine. The lungs are clear and expanded. There is no demonstrated pleural abnormality. Normal size heart. Normal mediastinum and praveen. Normal visualized pulmonary arteries. Normal visualized aortic arch and descending thoracic aorta. Normal visualized thoracic spine. Normal visualized ribs, clavicles, and shoulders. There is no demonstrated abnormality of the visualized soft tissue structures of the upper abdomen. RAD/Chest 1 View (Portable) IMPRESSION: Normal x-ray examination of the chest. Electronically Signed: Juan Jose Dorsey MD at 14:38 EDT ,
--- NOTE | 2021-12-18 14:02 | EX.ED.DYSGE1 ---
HPI History of Present Illness Chief Complaint: Weakness Narrative Narrative: Patient with past medical history of diabetes, fibromyalgia, COPD, hypertension, and anxiety presents with generalized weakness and shakiness that she has had this since this morning at around 9:00. She states that she awoke this morning and felt well, then a few hours later began feeling shaky and generally weak. She denies any nausea or vomiting but states she has been dry heaving since this morning. No problems with urination, no fevers or chills. No cough. She denies any abdominal pain or diarrhea. She lives at home alone. According to EMS, daughter reports that she has had declining health for the last 8 months and lives alone, but today was the worst when she could not even get out of bed and feels very shaky. [facility] Medical History (Updated 12/18/21 @ 19:21 by Parvez Wesley MD) Acute respiratory failure with hypoxia and hypercapnia Anemia Anxiety Arthritis Back pain Cardiology follow-up encounter Cervical radiculitis Chest pain Chronic back pain CKD (chronic kidney disease) stage 3, GFR 30-59 ml/min Closed fracture of left hip COPD (chronic obstructive pulmonary disease) CPAP (continuous positive airway pressure) dependence Depression Diabetes Diabetes mellitus, type II Diverticulosis Elevated troponin Emphysema, unspecified Esophageal stenosis Fibromyalgia Former smoker Gallbladder sludge Gastric reflux Gastro-esophageal reflux disease without esophagitis History of echocardiogram History of hiatal hernia History of pain when walking History of renal disease History of shoulder fracture History of stress test Hyperlipidemia Hypertension Injury of back Migraine headache Nicotine dependence, cigarettes, uncomplicated Normal colonoscopy On home oxygen therapy LATA (obstructive sleep apnea) Peripheral neuropathy Pulmonary embolism Shortness of breath on exertion Sleep apnea Smoker Smoking greater than 30 pack years Stage 2 moderate COPD by GOLD classification Thrombocytopenia Tobacco use Type 2 [place] (myocardial infarction) Walker as ambulation aid Wears glasses Wears partial dentures Home Medications bupropion HCl (smoking deter) 150 mg PO DAILY 07/09/19 [History Last Taken 06/01/21] docusate sodium 100 mg PO BID 07/09/19 [History Last Taken 06/01/21] ferrous sulfate 325 mg PO DAILY 07/09/19 [History Last Taken 05/31/21] lamotrigine 100 mg PO DAILY 07/09/19 [History Last Taken 06/01/21] sertraline 100 mg PO DAILY 07/09/19 [History Last Taken 06/01/21] albuterol sulfate 2.5 mg INHALATION Q2H PRN PRN #3 ml 03/19/21 [Rx Last Taken 05/23/21] furosemide 40 mg tablet 40 mg PO DAILY tab 05/12/21 [History Last Taken 06/01/21] ondansetron HCl 4 mg tablet 4 mg PO Q6H PRN 05/12/21 [History Last Taken 06/01/21] sertraline 50 mg tablet 50 mg PO DAILY 05/12/21 [History Last Taken 06/01/21] simvastatin 20 mg tablet 20 mg PO DAILY 05/12/21 [History Last Taken 05/31/21] trazodone 100 mg tablet 100 mg PO QHS tab 05/12/21 [History Last Taken 05/31/21] Anoro Ellipta 1 inh INHALATION DAILY 05/18/21 [History Last Taken 06/01/21] aripiprazole 10 mg PO DAILY 05/18/21 [History Last Taken 06/01/21] benztropine 0.5 mg PO TID 05/18/21 [History Last Taken 06/01/21] omeprazole 40 mg PO DAILY 05/24/21 [History Last Taken 06/01/21] acetaminophen 1,000 mg PO BID PRN 06/01/21 [History Last Taken 06/01/21] allopurinol 300 mg PO DAILY@1200 06/01/21 [History Last Taken 06/01/21] Eliquis 5 mg PO BID #60 tab 06/04/21 [Rx Last Taken 09/29/21] linagliptin [Tradjenta] 5 mg PO DAILY 09/30/21 [History Last Taken Unknown] Allergy/AdvReac Type Severity Reaction Status Date / Time No Known Allergies Allergy Verified 12/18/21 14:02 Family History Mother Hypertension Father Hypertension Diabetes Surgical History Cervical vertebral fusion history EGD with ph probe (~12/09/17) History of colonoscopy (~12/05/17) History of repair of hiatal hernia History of shoulder surgery History of tubal ligation Hx of cholecystectomy Hx of hernia repair Hx of surgical procedure Social History (Updated 12/18/21 @ 18:[address] Heidi Rell, DO) household members: none number of children: 2 other: Currently lives alone and uses a wheeled walker to ambulate Smoking Status: Current every day smoker tobacco type: cigarettes alcohol intake: never substance use type: does not use caffeine: No what type of physical activity do you participate in: none additional social history: Brody, her son is reported to be her guardian ROS ROS ED ROS Narrative Constitutional: No fever, no chills. HEENT: No sore throat. No neck pain. No loss of vision. No rhinorrhea. Cardiovascular: No chest pain. No palpitations. No pedal edema. Respiratory: No cough, no shortness of breath. Abdominal: No abdominal pain. No nausea. No vomiting. However, reports dry heaving. Genitourinary: No dysuria. No hematuria. Musculoskeletal: No myalgias. No arthralgias. Neurologic: No headaches. No dizziness. No lightheadedness. Generalized weakness. Shakiness. Skin: No rash. No change in color. Psychiatric: No depression. No anxiety. EXAM Physical Exam Narrative Exam Narrative: Afebrile. Vital signs noted. HEENT: Normocephalic. Atraumatic. PERRL, EOMI. Neck soft and supple. No point tenderness or step off. Cardiovascular: Regular rate and rhythm. No murmurs, rubs, or gallops appreciated. Respiratory: No tachypnea. Lungs clear to auscultation bilaterally. Gastrointestinal: Abdomen soft, nontender, with normoactive bowel sounds. No rebound or guarding. Neurological: Awake. Alert. Nonfocal, nonlateralizing. Positive tremor noted of left upper extremity. Generalized weakness. Skin: No rash. Normal color. No pallor. Musculoskeletal: No pedal edema. Full range of motion extremities. Const Vital Signs: 12/18/21 13:58 12/18/21 14:02 12/18/21 14:09 Temperature 98.6 F 98.6 F Temperature Source Oral Oral Pulse Rate 96 96 Respiratory Rate 25 H 25 H Respiratory Effort Normal Respiratory Pattern Normal Blood Pressure 117/76 117/76 Blood Pressure Mean 89 89 Pulse Ox 93 93 Oxygen Delivery Method Room Air Room Air Oxygen Flow Rate (L/min) 12/18/21 14:29 12/18/21 15:02 12/18/21 16:02 Temperature 97.8 F 97.4 F L Temperature Source Oral Oral Pulse Rate 82 77 Respiratory Rate 22 H 24 H Respiratory Effort Respiratory Pattern Blood Pressure 97/67 100/64 Blood Pressure Mean 77 76 Pulse Ox 96 97 100 Oxygen Delivery Method Nasal Cannula Room Air Room Air Oxygen Flow Rate (L/min) 2 12/18/21 17:00 12/18/21 17:59 12/18/21 18:00 Temperature 97.6 F L 97.8 F 97.8 F Temperature Source Oral Oral Oral Pulse Rate 80 82 82 Respiratory Rate 22 H 21 H 21 H Respiratory Effort Respiratory Pattern Blood Pressure 118/71 115/68 115/68 Blood Pressure Mean 86 83 83 Pulse Ox 99 92 88 Oxygen Delivery Method Room Air Nasal Cannula Room Air Oxygen Flow Rate (L/min) 2 MDM MDM MDM Narrative Medical decision making narrative: Comprehensive work-up was pursued. CBC is grossly normal except for hemoglobin stable 11.8, platelet count normal at 249. CMP shows anion gap low at 4, creatinine of 1.24, high-sensitivity troponin negative at 7. Urinalysis showed no evidence of ketones, no infection. Chest x-ray read by myself shows no acute process. No pneumonia or pneumothorax. Pulse ox is currently 99% on room air without evidence of hypoxia. Given her generalized weakness, shakiness, and inability to perform her ADLs, I discussed the patient with Dr. Zacarias for admission for placement and rehabilitation. Patient and daughter are currently agreeable to the plan. Disposition is admitted in stable condition. Of note, just before the patient went to the floor, it was reported by RN student that she was hypoxic at 88% on room air. She was placed back on nasal cannula oxygen with good resultant O2 saturation. At this point in time, I do still feel that she is stable for the general medical floor. Disposition is admitted. Lab Data Attestation: I reviewed the patient's lab results. Labs: Laboratory Results - last 24 hr 12/18/21 12/18/21 12/18/21 14:15 14:15 16:24 WBC 7.7 RBC 3.74 L Hgb 11.8 L Hct 37.3 MCV 99.7 H MCH 31.6 MCHC 31.6 L RDW Std Deviation 55.6 H RDW Coeff of Suki 15.1 H Plt Count 249 MPV 8.6 Immature Gran % (Auto) 1.200 H Neut % (Auto) 71.5 H Lymph % (Auto) 21.4 [place] % (Auto) 4.3 Eos % (Auto) 1.3 Baso % (Auto) 0.3 Absolute Neuts (auto) 5.5 Absolute Lymphs (auto) 1.65 Nucleated RBC % 0 Sodium 138 Potassium 4.3 Chloride 104 Carbon Dioxide 30.0 Anion Gap 4 L BUN 12 Creatinine 1.24 H Estim Creat Clear Calc 37.68 Est GFR (MDRD) Af Amer 56 L Est GFR (MDRD) Non-Af 47 L BUN/Creatinine Ratio 9.7 L Glucose 94 Calcium 8.5 Total Bilirubin 0.10 L AST 15 ALT 12 L Alkaline Phosphatase 149 H Troponin I High Sens 7 Total Protein 6.5 Albumin 2.5 L Globulin 4.0 Albumin/Globulin Ratio 0.6 L Lipase 27 L Urine Color Straw Urine Clarity Clear Urine pH 7.0 Ur Specific [place] 1.005 Urine Protein Negative Urine Glucose (UA) Normal Urine Ketones Negative Urine Occult Blood Negative Urine Nitrite Negative Urine Bilirubin Negative Urine Urobilinogen Normal Ur Leukocyte Esterase 25 H Urine RBC 0 SEEN Urine WBC 0 SEEN Ur Squamous Epith Cells 0 SEEN Urine Bacteria RARE Urine Mucus 0 SEEN Radiography Diagnostic Testing: Clinical Impression(s) from Imaging Studies Chest X-Ray 12/18/21 14:02 IMPRESSION: Normal x-ray examination of the chest. Electronically Signed: Juan Jose Dorsey MD at 14:38 EDT , Discharge Plan Dx/Rx/DC Orders Clinical Impression: Generalized weakness, Hypoxia, Shakiness, Inability to perform activities of daily living, COPD (chronic obstructive pulmonary disease) Disposition Disposition: Acute Care Hospital [facility] Discharge Date/Time: 12/18/21 18:33
[2021-12-18] MEDS: 0.9% Normal Saline 1,000 ML 1000 ML IV (14:15)
[2021-12-18 14:22] LABS: Absolute Lymphocyte Count 1.65 X10^3/uL (0.83-4.51); Absolute Neutrophil Count 5.5 X10^3/uL (2.0-7.7); Basophil# 0.02 X10^3/uL; Basophil% 0.3 % (0-1); Eosinophils% 1.3 % (0-5); Hematocrit 37.3 % (37-47); Hemoglobin 11.8 g/dL (12.0-15.0); Lymphocyte # 1.65 X10^3/ul (0.83-4.51); Lymphocyte % 21.4 % (19-41); Mean Corp Hgb Conc 31.6 g/dL (32-36); Mean Corpuscular Hgb 31.6 pg (27.0-32.0); Mean Corpuscular Volume 99.7 fL (81-99); Mean Platelet Vol. 8.6 fl (6.2-12.0); Monocyte# 0.33 X10^3/uL; Monocyte% 4.3 % (0-10); NRBC Flagged by Analyzer 0 % (0-5); Neutrophil # 5.53 X10^3/uL (2.7-7.7); Neutrophil % 71.5 % (47-70); Platelet Count 249 K/mm3 (150-450); RBC Distribution Width CV 15.1 % (11.6-14.6); RBC Distribution Width SD 55.6 fl (35.1-43.9); Red Blood Count 3.74 M/mm3 (4.2-5.4); White Blood Count 7.7 K/mm3 (4.4-11.0)
[2021-12-18 14:41] LABS: BUN 12 mg/dL (7-18); Creatinine, Serum 1.24 mg/dL (0.55-1.02); Estimated Creatinine Clearance 37.68 ml/min; Glucose 94 mg/dL (74-106)
[2021-12-18 14:42] LABS: ALB/GLOB Ratio 0.6 RATIO (0.9-2.4); AST(SGOT) 15 U/L (15-37); Alanine Aminotransfer ALT/SGPT 12 U/L (13-56); Albumin, Serum 2.5 g/dL (3.2-5.0); Alkaline Phosphatase 149 U/L (45-117); Anion Gap 4 (5-15); BUN/Creat Ratio 9.7 RATIO (10-20); Calcium,Total 8.5 mg/dL (8.5-10.1); Chloride 104 mmol/L (98-107); EST Glomerular Filtration Rate 47 mL/min (>60); Est Glom Filt Rate - Afr Amer 56 mL/min (>60); Lipase 27 U/L (73-393); Potassium 4.3 mmol/L (3.5-5.1); Protein, Total 6.5 g/dL (6.4-8.2); Sodium Level 138 mmol/L (136-145); Troponin-I HS 7 pg/mL (3.0-54.0)
[2021-12-18 16:29] LABS: Mucous, Urine 0 SEEN /hpf (<or=2+); Red Blood Cells-Urine 0 SEEN /hpf (0-5); Squamous Epithelial Cells - UA 0 SEEN /hpf (5-10); White Blood Cells 0 SEEN /hpf (0-5)
[2021-12-18 16:36] LABS: Color, Urine Straw (Yellow); Glucose, Dipstick Normal (Normal); Ketone-Dipstick Negative (Negative); Leukocyte Esterase-Dipstick 25 /ul (Negative); Nitrite-Dipstick Negative (Negative); Occult Blood-Urine Negative /ul (Negative); Protein-Dipstick Negative (Negative); Specific Gravity, Urine 1.005 (1.002-1.030); Urine Bilirubin Dipstick Negative (Negative); Urine Clarity Clear (Clear); Urine Urobilinogen Normal (Normal)
[2021-12-18 17:03] LABS: Bacteria RARE /hpf (None Seen)
--- NOTE | 2021-12-18 18:15 | PCM.HP.STD ---
HPI - General General Date of Admission: 12/18/21 Date of Service: 12/18/21 Chief Complaint: Shaking/failure to thrive HPI Narrative MARGARITA JOSHI, is a 61 F who presented to the emergency department [facility] on 12/18/2021 with a chief complaint of weakness. Her daughter presents with her and states that her mother was at [facility] until the end of October and had been doing quite well prior to the time of discharge however she has experienced a functional decline since she is gone home. She does have an aide twice a week and is wondering if there would be more services amenable to her when she is able to go back home however at this point given her debility she feels that she needs replaced in a nursing facility. Her daughter reports that she has had at least 2 falls in the last couple of weeks 1 of which resulted in rib fractures. The patient reports that she was home this morning when she began having some shakiness while she was moving around and was generally weak. She had no nausea or vomiting but states she had dry heaving since the morning. She is improved at this time with regards to her nausea vomiting and would like to go home however her daughter and son, who is reported to be her guardian, feel that she needs to be placed in a facility for increased care. She lives alone at baseline and ambulates with a wheeled walker. The daughter states that a neighbor saw her ambulating outside of her home and noted that her gait was not typical for her on the morning of admission. Per discussion with ER physician they felt that they clinically could not find anything significantly wrong with her however given her decreased functional status and failure to thrive at home family would like to pursue rehab and placement into a nursing facility prior to returning home. Given the fact that she has a reported guardian, we feel that it is appropriate to admit her and pursue skilled facility placement. We will need to clarify the guardianship as the patient does not want to be placed at this time. In the emergency department her temp was 97.6, blood pressure 180/71, pulse is 80, respiratory 22, saturation is 99% on room air. Her CBC shows a chronic stable anemia that is macrocytic in nature and normal platelet count with no white count elevation. Her BMP is overall unremarkable and shows a serum creatinine of 1.24 however she has been running 1-1.15 on recent lab work. Her liver enzymes are unremarkable. Her troponin is normal. Lipase was obtained given her earlier nausea and was found to be 27. A UA was essentially negative. Her chest x-ray shows no acute findings. She was admitted to [facility] for further evaluation by therapy services and ultimately placement of skilled facility. [facility] Medical History (Updated 12/18/21 @ 18:[address] Heidi Zacarias, DO) Acute respiratory failure with hypoxia and hypercapnia Anemia Anxiety Arthritis Back pain Cardiology follow-up encounter Cervical radiculitis Chest pain Chronic back pain CKD (chronic kidney disease) stage 3, GFR 30-59 ml/min Closed fracture of left hip COPD (chronic obstructive pulmonary disease) CPAP (continuous positive airway pressure) dependence Depression Diabetes Diabetes mellitus, type II Diverticulosis Elevated troponin Emphysema, unspecified Esophageal stenosis Fibromyalgia Former smoker Gallbladder sludge Gastric reflux Gastro-esophageal reflux disease without esophagitis History of echocardiogram History of hiatal hernia History of pain when walking History of renal disease History of shoulder fracture History of stress test Hyperlipidemia Hypertension Injury of back Migraine headache Nicotine dependence, cigarettes, uncomplicated Normal colonoscopy On home oxygen therapy LATA (obstructive sleep apnea) Peripheral neuropathy Pulmonary embolism Shortness of breath on exertion Sleep apnea Smoker Smoking greater than 30 pack years Stage 2 moderate COPD by GOLD classification Thrombocytopenia Tobacco use Type 2 NC (myocardial infarction) Walker as ambulation aid Wears glasses Wears partial dentures Home Medications bupropion HCl (smoking deter) 150 mg PO DAILY 07/09/19 [History Last Taken 06/01/21] docusate sodium 100 mg PO BID 07/09/19 [History Last Taken 06/01/21] ferrous sulfate 325 mg PO DAILY 07/09/19 [History Last Taken 05/31/21] lamotrigine 100 mg PO DAILY 07/09/19 [History Last Taken 06/01/21] sertraline 100 mg PO DAILY 07/09/19 [History Last Taken 06/01/21] albuterol sulfate 2.5 mg INHALATION Q2H PRN PRN #3 ml 03/19/21 [Rx Last Taken 05/23/21] furosemide 40 mg tablet 40 mg PO DAILY tab 05/12/21 [History Last Taken 06/01/21] ondansetron HCl 4 mg tablet 4 mg PO Q6H PRN 05/12/21 [History Last Taken 06/01/21] sertraline 50 mg tablet 50 mg PO DAILY 05/12/21 [History Last Taken 06/01/21] simvastatin 20 mg tablet 20 mg PO DAILY 05/12/21 [History Last Taken 05/31/21] trazodone 100 mg tablet 100 mg PO QHS tab 05/12/21 [History Last Taken 05/31/21] Anoro Ellipta 1 inh INHALATION DAILY 05/18/21 [History Last Taken 06/01/21] aripiprazole 10 mg PO DAILY 05/18/21 [History Last Taken 06/01/21] benztropine 0.5 mg PO TID 05/18/21 [History Last Taken 06/01/21] omeprazole 40 mg PO DAILY 05/24/21 [History Last Taken 06/01/21] acetaminophen 1,000 mg PO BID PRN 06/01/21 [History Last Taken 06/01/21] allopurinol 300 mg PO DAILY@1200 06/01/21 [History Last Taken 06/01/21] Eliquis 5 mg PO BID #60 tab 06/04/21 [Rx Last Taken 09/29/21] linagliptin [Tradjenta] 5 mg PO DAILY 09/30/21 [History Last Taken Unknown] Allergy/AdvReac Type Severity Reaction Status Date / Time No Known Allergies Allergy Verified 12/18/21 14:02 Family History Mother Hypertension Father Hypertension Diabetes Surgical History Cervical vertebral fusion history EGD with ph probe (~12/09/17) History of colonoscopy (~12/05/17) History of repair of hiatal hernia History of shoulder surgery History of tubal ligation Hx of cholecystectomy Hx of hernia repair Hx of surgical procedure Social History (Updated 12/18/21 @ 18:[address] Heidi Zacarias DO) household members: none number of children: 2 other: Currently lives alone and uses a wheeled walker to ambulate Smoking Status: Current every day smoker tobacco type: cigarettes alcohol intake: never substance use type: does not use caffeine: No what type of physical activity do you participate in: none additional social history: Brody, her son is reported to be her guardian ROS Constitutional Constitutional: Reports weakness and other Details: Falls ; Denies anorexia, change in weight, chills, fatigue, fever(s), malaise or night sweats ENT HEENT: Denies abnormal hearing, dysphagia, ear pain, epistaxis, headache(s), hearing loss, nasal congestion, nasal discharge, post nasal drip, sinus pressure, sore throat or other Cardiovascular Cardiovascular: Denies chest pain, claudication, dyspnea on exertion, edema, lightheadedness, orthopnea, palpitations, paroxysmal nocturnal dyspnea, rapid heart rate, syncope or other Respiratory/Chest Respiratory/Chest: Denies cough, dyspnea, excessive phlegm production, hemoptysis, productive cough, shortness of breath at rest, shortness of breath with exertion, wheezing or other Gastrointestinal Gastrointestinal: Reports nausea and other Details: Dry heaves with no emesis ; Denies abdominal pain, coffee ground emesis, constipation, diarrhea, dyspepsia, hematemesis, hematochezia, loose stools, melena or vomiting Genitourinary Genitourinary: Denies burning urination, difficulty urinating, dysuria, hematuria, nocturia, urinary frequency, urinary hesitancy, urinary incontinence, urinary urgency or other Musculoskeletal Musculoskeletal: Reports arthralgias, joint stiffness and myalgias Neurologic Neurologic: Reports abnormal gait and tremor(s); Denies abnormal speech, confusion, disequilibrium, dizziness, focal weakness, headache(s), numbness, paresthesias, seizure-like activity, seizures, syncope, tingling or other Psychiatric Psychiatric: Reports anxiety and depression; Denies homicidal ideation, suicidal ideation or other Endocrine Endocrinology: Denies change in body appearance, cold intolerance, excessive sweating, heat intolerance, polydipsia, polyuria or other Hematologic/Lymphatic Hematologic/Lymphatic: Denies anemia, easy bleeding, easy bruising, lymphadenopathy or other Allergic/Immunologic Allergic/Immunologic: Denies rhinitis, hives, eczemia, asthma or other Vital Signs Vital Signs Vital Signs: 12/18/21 13:58 12/18/21 14:02 12/18/21 14:09 Temperature 98.6 F 98.6 F Temperature Source Oral Oral Pulse Rate 96 96 Respiratory Rate 25 H 25 H Respiratory Effort Normal Respiratory Pattern Normal Blood Pressure 117/76 117/76 Blood Pressure Mean 89 89 Pulse Ox 93 93 Oxygen Delivery Method Room Air Room Air Oxygen Flow Rate (L/min) 12/18/21 14:29 12/18/21 15:02 12/18/21 16:02 Temperature 97.8 F 97.4 F L Temperature Source Oral Oral Pulse Rate 82 77 Respiratory Rate 22 H 24 H Respiratory Effort Respiratory Pattern Blood Pressure 97/67 100/64 Blood Pressure Mean 77 76 Pulse Ox 96 97 100 Oxygen Delivery Method Nasal Cannula Room Air Room Air Oxygen Flow Rate (L/min) 2 12/18/21 17:00 Temperature 97.6 F L Temperature Source Oral Pulse Rate 80 Respiratory Rate 22 H Respiratory Effort Respiratory Pattern Blood Pressure 118/71 Blood Pressure Mean 86 Pulse Ox 99 Oxygen Delivery Method Room Air Oxygen Flow Rate (L/min) Weight Weight: 69.6 kg Body Mass Index (BMI) 28.0 Physical Exam Const alert, oriented x3 and no apparent distress Constitutional Narrative: Thin upper middle-aged white female sitting up in bed, daughter at bedside, patient appears much older than stated age, nontoxic General Appearance: cooperative HEENT normocephalic, head/scalp atraumatic, hearing grossly normal bilaterally, moist oral mucous membranes and oropharynx normal HEENT Narrative: Dentures in place, Mallampati 2, no thrush Eyes PERRL, EOMs intact bilaterally and conjunctivae normal Eyes Narrative: No scleral icterus Neck no lymphadenopathy, supple, no JVD and no carotid bruits Neck Narrative: Trachea midline, no thyroid enlargement Resp normal respiratory effort, no retractions, no use of accessory muscles and No clear to auscultation bilaterally Resp Narrative: Diffusely diminished with few scattered end expiratory wheezes that improved with cough Auscultation: wheezes; Negative for crackles, rales or rhonchi Cardio regular rate, regular rhythm, S1 normal heart sound, S2 normal heart sound, no murmurs, no rub, no gallops, no clicks and no JVD GI normal to inspection, nondistended, normoactive bowel sounds, soft to palpation, non-tender and non-distended; Negative for hepatosplenomegaly Extremity no clubbing, cyanosis or edema Peripheral Pulses: Yes pulses 2+ throughout Skin no wounds, skin turgor normal, no jaundice, no petechiae and no mottling Skin Narrative: Few scattered ecchymosis in various stages of healing but otherwise unremarkable Neuro oriented x3, CN's II-XII intact bilaterally, moves all extremities and no focal motor deficits Neuro Narrative: Marked generalized weakness Sensorium / Orientation: awake and alert Speech: speech normal Psych Psych Narrative: Affect is somewhat flattened mood seems depressed Results Lab / Micro Data Attestation: I reviewed the patient's lab results. Result Diagrams: 12/18/21 14:15 12/18/21 14:15 Labs: Laboratory Results - last 24 hr 12/18/21 14:15: WBC 7.7, RBC 3.74 L, Hgb 11.8 L, Hct 37.3, MCV 99.7 H, MCH 31.6, MCHC 31.6 L, RDW Std Deviation 55.6 H, RDW Coeff of Suki 15.1 H, Plt Count 249, MPV 8.6, Immature Gran % (Auto) 1.200 H, Neut % (Auto) 71.5 H, Lymph % (Auto) 21.4, [place] % (Auto) 4.3, Eos % (Auto) 1.3, Baso % (Auto) 0.3, Absolute Neuts (auto) 5.5, Absolute Lymphs (auto) 1.65, Nucleated RBC % 0 12/18/21 14:15: Sodium 138, Potassium 4.3, Chloride 104, Carbon Dioxide 30.0, Anion Gap 4 L, BUN 12, Creatinine 1.24 H, Estim Creat Clear Calc 37.68, Est GFR (MDRD) Af Amer 56 L, Est GFR (MDRD) Non-Af 47 L, BUN/Creatinine Ratio 9.7 L, Glucose 94, Calcium 8.5, Total Bilirubin 0.10 L, AST 15, ALT 12 L, Alkaline Phosphatase 149 H, Troponin I High Sens 7, Total Protein 6.5, Albumin 2.5 L, Globulin 4.0, Albumin/Globulin Ratio 0.6 L, Lipase 27 L 12/18/21 16:24: Urine Color Straw, Urine Clarity Clear, Urine pH 7.0, Ur Specific [place] 1.005, Urine Protein Negative, Urine Glucose (UA) Normal, Urine Ketones Negative, Urine Occult Blood Negative, Urine Nitrite Negative, Urine Bilirubin Negative, Urine Urobilinogen Normal, Ur Leukocyte Esterase 25 H, Urine RBC 0 SEEN, Urine WBC 0 SEEN, Ur Squamous Epith Cells 0 SEEN, Urine Bacteria RARE, Urine Mucus 0 SEEN Radiology Impression Chest X-Ray 12/18/21 14:02 IMPRESSION: Normal x-ray examination of the chest. Electronically Signed: Juan Jose Dorsey MD at 14:38 EDT , Assessment & Plan Assessment/Plan (1) Adult failure to thrive: PLAN: Debility/failure to thrive in adult -Patient had been residing at [facility] until the end of October and she is unfortunately experienced significant decline since then having 2 falls within the last couple weeks -Patient is unwilling to go to skilled facility however it is reported that her son is her guardian and he feels that she needs to go somewhere -We will need to clarify guardianship prior to discharge and arrangement for skilled facility as the patient does not want to be admitted to retirement facility as noted above -PT/OT consultations -Case management consulted History of pulmonary embolism -Continue home Eliquis Esophageal stenosis -Was recently dilated on EGD in October GERD -Continue home omeprazole Hyperlipidemia -Continue home statin CKD stage IIIa -Current serum creatinine is at baseline of 1.1-1.3 -Close to baseline-continue to monitor History of chronic anemia -Patient with known chronic iron deficiency -Counts are currently normalized -Recent EGD and colonoscopy History of DM-2 -Hold home Tradjenta -Sliding scale Anxiety/depression/bipolar disorder -Continue home medications as ordered Baseline COPD -Continue pulmonary toilet -Continue home inhaler -Patient is not O2 dependent at baseline and is on room air History of gout -Continue allopurinol Hyperlipidemia -Continue atorvastatin DVT prophylaxis -Continue home Eliquis CODE STATUS -Full code Charges/Coding Visit Charges Inpatient E&M: 20364 Init Hosp L3
[2021-12-18] MEDS: Benztropine Mesylate 0.5 MG TABLET PO (22:47)
[2021-12-18] MEDS: Docusate Sodium 100 MG Capsule PO (22:47)
[2021-12-18] MEDS: Ipratropium/Albuterol Sulfate 3 ML AMPUL.NEB INHALATION (22:48)
[2021-12-18] MEDS: Atorvastatin Calcium 10 MG Tablet PO (22:49)
[2021-12-18] MEDS: 0.9% Saline Lock 10 ML Syringe IV (22:49)
[2021-12-18] MEDS: APIXABAN 5 MG TABLET PO (22:49)
[2021-12-18 23:21] LABS: Bedside Glucose 89 mg/dL (74-106)
[2021-12-19 02:42] VITALS: BP 95/62; PULSE 88; RESP 16; TEMP 36.4; O2SAT 96
[2021-12-19] MEDS: Benztropine Mesylate 0.5 MG TABLET PO ×2 (06:52→14:05)
[2021-12-19 07:00] LABS: Bedside Glucose 93 mg/dL (74-106)
[2021-12-19 07:30] VITALS: PULSE 72; PULSE 94; RESP 16; RESP 20; O2SAT 96
[2021-12-19] MEDS: Ipratropium/Albuterol Sulfate 3 ML AMPUL.NEB INHALATION ×2 (07:30→13:16)
--- NOTE | 2021-12-19 07:42 | PN.HOSP_ITS ---
Objective Data Objective Data Vital Signs: Vital Signs Temp Pulse Resp BP Pulse Ox 97.5 F L 72 16 95/62 96 12/19/21 02:42 12/19/21 07:30 12/19/21 07:30 12/19/21 02:42 12/19/21 07:30 Oxygen Flow Rate (L/min) 2 Oxygen Delivery Method Nasal Cannula Weight: 128 lb 4.944 oz Body Mass Index (BMI) 23.4 Intake & Output: Intake and Output for Last 24 Hours 12/17/21 12/18/21 12/19/21 23:59 23:59 23:59 Intake Total 1000 / 1100 200 / 200 Balance 1000 / 1100 200 / 200 Lab / Micro Data Result Diagrams: 12/18/21 14:15 12/18/21 14:15 Labs: Laboratory Results - last 24 hr 12/18/21 14:15: WBC 7.7, RBC 3.74 L, Hgb 11.8 L, Hct 37.3, MCV 99.7 H, MCH 31.6, MCHC 31.6 L, RDW Std Deviation 55.6 H, RDW Coeff of Suki 15.1 H, Plt Count 249, MPV 8.6, Immature Gran % (Auto) 1.200 H, Neut % (Auto) 71.5 H, Lymph % (Auto) 21.4, [place] % (Auto) 4.3, Eos % (Auto) 1.3, Baso % (Auto) 0.3, Absolute Neuts (auto) 5.5, Absolute Lymphs (auto) 1.65, Nucleated RBC % 0 12/18/21 14:15: Sodium 138, Potassium 4.3, Chloride 104, Carbon Dioxide 30.0, Anion Gap 4 L, BUN 12, Creatinine 1.24 H, Estim Creat Clear Calc 37.68, Est GFR (MDRD) Af Amer 56 L, Est GFR (MDRD) Non-Af 47 L, BUN/Creatinine Ratio 9.7 L, Glu cose 94, Calcium 8.5, Total Bilirubin 0.10 L, AST 15, ALT 12 L, Alkaline Phosphatase 149 H, Troponin I High Sens 7, Total Protein 6.5, Albumin 2.5 L, Globulin 4.0, Albumin/Globulin Ratio 0.6 L, Lipase 27 L 12/18/21 16:24: Urine Color Straw, Urine Clarity Clear, Urine pH 7.0, Ur Specific [place] 1.005, Urine Protein Negative, Urine Glucose (UA) Normal, Urine Ketones Negative, Urine Occult Blood Negative, Urine Nitrite Negative, Urine Bi lirubin Negative, Urine Urobilinogen Normal, Ur Leukocyte Esterase 25 H, Urine RBC 0 SEEN, Urine WBC 0 SEEN, Ur Squamous Epith Cells 0 SEEN, Urine Bacteria RARE, Urine Mucus 0 SEEN 12/18/21 22:42: POC Glucose 89 12/19/21 06:53: POC Glucose 93 Radiography Diagnostic Testing: Radiology Impression Chest X-Ray 12/18/21 14:02 IMPRESSION: Normal x-ray examination of the chest. Electronically Signed: Juan Jose Dorsey MD at 14:38 EDT , Assessment & Plan Assessment/Plan (1) Adult failure to thrive: PLAN: Debility/failure to thrive in adult -Patient had been residing at [facility] until the end of October and she is unfortunately experienced significant decline since then having 2 falls within the last couple weeks -Patient is unwilling to go to skilled facility however it is reported that her son is her guardian and he feels that she needs to go somewhere -We will need to clarify guardianship prior to discharge and arrangement for skilled facility as the patient does not want to be admitted to nursing home facility as noted above -PT/OT consultations -Case management consulted History of pulmonary embolism -Continue home Eliquis Esophageal stenosis -Was recently dilated on EGD in October GERD -Continue home omeprazole Hyperlipidemia -Continue home statin CKD stage IIIa -Current serum creatinine is at baseline of 1.1-1.3 -Close to baseline-continue to monitor History of chronic anemia -Patient with known chronic iron deficiency -Counts are currently normalized -Recent EGD and colonoscopy History of DM-2 -Hold home Tradjenta -Sliding scale Anxiety/depression/bipolar disorder -Continue home medications as ordered Baseline COPD -Continue pulmonary toilet -Continue home inhaler -Patient is not O2 dependent at baseline and is on room air History of gout -Continue allopurinol Hyperlipidemia -Continue atorvastatin DVT prophylaxis -Continue home Eliquis CODE STATUS -Full code
--- NOTE | 2021-12-19 09:55 | CASEMGMT ---
MICHAEL STERLING Face to Face with patient for initial transition planning/care coordination assessment. MICHAEL STERLING introduced self and role at [facility]. Patient lying in bed, alert and oriented. Patient willing to participate in assessment and is able to answer all questions appropriately. Care providers, pharmacy, and demographics verified. Patient wishes to discharge home with resumption of HHC. Patient states she has no further needs or concerns at this time. CM to follow for discharge planning needs that may arise. PCP: Nomi Specialists: Vicki, medical coding instructor; Chester chain offbearer Preferred Pharmacy: [facility] Insurance: RENEE Pablo Prescription Benefit: yes Living Will/HPOA: yes, son Brody ASKEW: son, daughter Living Arrangements: Patient lives alone in a single floor apartment with no steps to enter. Per patient she is independent at home. Transportation: [place] or son DME/HHC: Patient states she has shower chair, raised toilet, grab bars, walker, rollator and cpap at home. Patient states she has previously been to [facility]. Patient states she has nursing and therapy coming to her home but cannot recall HHC agency. MICHAEL STERLING to follow-up with son regarding HHC agency and discharge planning. Will monitor progress with therapy for recommendations. Disposition Plan: Patient to discharge home with resumption of HHC, family support, and follow-up plans in place. Cecile RUTHERFORD, RN, CM
[2021-12-19 10:43] VITALS: BP 97/57; PULSE 72; RESP 16; TEMP 36.4; O2SAT 97
[2021-12-19] MEDS: Sertraline 50 MG Tablet 150 MG PO (10:53)
[2021-12-19] MEDS: Pantoprazole Sodium 40 MG Tablet PO (10:54)
[2021-12-19] MEDS: Docusate Sodium 100 MG Capsule PO (10:54)
[2021-12-19] MEDS: lamoTRIgine 100 MG Tablet PO (10:54)
[2021-12-19] MEDS: ARIPiprazole 10 MG Tablet PO (10:54)
[2021-12-19] MEDS: buPROPion (SR) 150 MG Tablet.SA PO (10:54)
[2021-12-19] MEDS: APIXABAN 5 MG TABLET PO (10:55)
[2021-12-19] MEDS: Furosemide 40 MG Tablet PO (10:55)
[2021-12-19] MEDS: Ferrous Sulfate 325 MG Tablet PO (11:13)
[2021-12-19] MEDS: Allopurinol 300 MG Tablet PO (11:13)
[2021-12-19 11:15] LABS: Bedside Glucose 139 mg/dL (74-106)
--- NOTE | 2021-12-19 11:30 | CASEMGMT ---
MICHAEL STERLING to room to discuss discharge planning. Son Brody in room with patient. Per Brody, he is patient's legal guardian. He believes C was setup with [facility]. Patient states she has CM Naomie Solis at [facility]. RN HALLIE left message for Naomie. Son does not recall name of C agency. Patient ambulated 400ft with therapy stand by assist. Tiago Skinner agreeable for patient to return home with resumption of HHC. MICHAEL STERLING attempted to call PCP to clarify HHC but currently closed. CM will continue to follow this patient and plan for a safe discharge.
--- NOTE | 2021-12-19 11:56 | CASEMGMT ---
MICHAEL STERLING in to discuss NIX form with patient and guardian, son Brody Fisher. RN HALLIE explained NIX form, patient/guardian voiced understanding. Pt guardian signed form and filed in chart. Pt provided with a copy of signed NIX form. Son had to leave and asks for pt to be given copy. Patient/ son had no further questions or concerns at this time.
--- NOTE | 2021-12-19 12:15 | PCM.DC ---
Discharge Instructions Diet Discharge Diet: No restrictions Activity Discharge Activity: Return to Normal Activity Weight Bearing Status: Weight bearing as tolerated Dressing / Incision Call your doctor if you observe: Fever of 101 or Higher, Numbness or Tingling, Shortness of breath, Dizziness, Chest pain, Increased palpitations (irregular heartbeat) and Calf discomfort Follow Up Care Please Follow Up With: Primary care provider When: Within the next two weeks. Test Results: Test results from this visit will be discussed in further detail at your follow-up appointment, if applicable. Discharge Plan Admission Admit Date/Time: 12/18/21 18:09 Primary Reason for Your Visit: Functional decline Attending Provider: Colby Chapman Primary Care Provider: Hua Mosher Consulting Providers: Heidi Zacarias Discharge Orders/Prescriptions Prescriptions: Continued sertraline 50 mg tablet 50 mg PO DAILY RF: 0 ondansetron HCl [Zofran] 4 mg tablet 4 mg PO Q6H PRN (Reason: Nausea) RF: 0 simvastatin 20 mg tablet 20 mg PO DAILY RF: 0 trazodone 100 mg tablet 100 mg PO QHS RF: 0 sertraline 100 MG tablet 100 mg PO DAILY RF: 0 ferrous sulfate 325 MG tablet 325 mg PO DAILY RF: 0 lamotrigine 100 MG tablet 100 mg PO DAILY RF: 0 bupropion HCl (smoking deter) 150 MG tablet extended release 12 hr 150 mg PO DAILY RF: 0 docusate sodium 100 MG capsule 100 mg PO BID RF: 0 furosemide 40 mg tablet 40 mg PO DAILY RF: 0 albuterol sulfate 2.5 mg /3 mL (0.083 %) Solution For Nebulization 2.5 mg inhalation Q2H PRN PRN (Reason: Dyspnea, wheezing) Qty: 3 RF: 0 Anoro Ellipta 62.5-25 mcg/actuation blister with device 1 inh inhalation DAILY RF: 0 benztropine 0.5 mg tablet 0.5 mg PO TID RF: 0 aripiprazole 10 mg tablet 10 mg PO DAILY RF: 0 omeprazole 40 mg capsule,delayed release(DR/EC) 40 mg PO DAILY RF: 0 acetaminophen 500 mg Tablet 1,000 mg PO BID PRN (Reason: Pain) RF: 0 allopurinol 300 mg tablet 300 mg PO DAILY@1200 RF: 0 Eliquis 5 mg Tablet 5 mg PO BID Qty: 60 RF: 0 Tradjenta 5 mg Tablet 5 mg PO DAILY RF: 0 Referrals / Follow Up: Hua Mosher MD [Primary Care Provider] - Within 2 Weeks Disposition Disposition (needs filled in before D/C Order can be placed): Home, Self Care
--- NOTE | 2021-12-19 12:53 | CASEMGMT ---
Addendum entered by Tamie Emerson 12/19/21 14:41: TC to PCP office, spoke with nurse Saldaña, states pt was with [facility] in November for HHC. TC to Ro, at [facility], left message to see if pt is current. TC to [facility] office, spoke with Mercedes, states pt is receiving SN, PT and OT services. Faxed referral information including dc instructions and summary to Mercedes. States she does not need a resumption order since pt is in obs. Original Note: Pt and son are unsure which HHC they use. TC to [facility] and left message with CHN to see if she is a current patient. No answer at [facility] where pt was last in facility to see where she had been set up. PCP office closed for lunch.
[2021-12-19 13:17] VITALS: RESP 18
--- NOTE | 2021-12-19 13:55 | PCM.DC.SUM ---
Documented by User: Dewey HARRIS 12/19/21 14:02 Providers Date of Admission: 12/18/21 Date of Discharge: 12/19/21 Primary Care Physician: Dr. Hua Mosher MD Reason For Visit: adult failure to thrive Diagnosis Discharge Diagnosis (1) Adult failure to thrive: Status: Acute Code(s): R62.7 - Adult failure to thrive Medications at Discharge Home Medications bupropion HCl (smoking deter) 150 mg PO DAILY 07/09/19 docusate sodium 100 mg PO BID 07/09/19 ferrous sulfate 325 mg PO DAILY 07/09/19 lamotrigine 100 mg PO DAILY 07/09/19 sertraline 100 mg PO DAILY 07/09/19 albuterol sulfate 2.5 mg INHALATION Q2H PRN PRN #3 ml 03/19/21 furosemide 40 mg tablet 40 mg PO DAILY tab 05/12/21 ondansetron HCl 4 mg tablet 4 mg PO Q6H PRN 05/12/21 sertraline 50 mg tablet 50 mg PO DAILY 05/12/21 simvastatin 20 mg tablet 20 mg PO DAILY 05/12/21 trazodone 100 mg tablet 100 mg PO QHS tab 05/12/21 Anoro Ellipta 1 inh INHALATION DAILY 05/18/21 aripiprazole 10 mg PO DAILY 05/18/21 benztropine 0.5 mg PO TID 05/18/21 omeprazole 40 mg PO DAILY 05/24/21 acetaminophen 1,000 mg PO BID PRN 06/01/21 allopurinol 300 mg PO DAILY@1200 06/01/21 Eliquis 5 mg PO BID #60 tab 06/04/21 Tradjenta 5 mg PO DAILY 09/30/21 Hospital Course Summary of Care Provided Minutes Spent on Discharge: 20 Hospital Course: Patient is a 61-year-old female who was admitted to [facility] on 12/18/2021 for evaluation management of multiple recent falls, and generalized weakness. No physical evidence of deformity or acute trauma evident on evaluation in the ED or on admission into the hospital. Vital signs stable and patient is afebrile. Patient is without any acute complaints. Lab work was noncontributory throughout admission. Patient was evaluated by PT/OT and did not have any skilled therapy or rehab needs. Case management establish home health care for patient on discharge. Patient will be discharged back home with home health care. Case discussed with patient's son, Aiden. Family and patient are agreeable to all. No changes to patient's home medications were changed on admission, patient is to follow-up with primary care provider within the next 2 weeks. Patient seen by Dewey Myers PA-C, under the supervision of Dr. Sesay. Physical Exam Narrative Patient is a 61-year-old female comfortably resting in bed, alert and orient x3. Patient denies development of any new symptoms overnight. Does not appear in acute distress. Const alert, oriented x3 and no apparent distress HEENT normocephalic, head/scalp atraumatic and hearing grossly normal bilaterally Eyes PERRL, EOMs intact bilaterally and conjunctivae normal Neck no lymphadenopathy, supple and no JVD Resp normal respiratory effort, no retractions and no use of accessory muscles Cardio regular rate, regular rhythm and no JVD GI normal to inspection, nondistended, normoactive bowel sounds, soft to palpation and non-tender Extremity normal to inspection, full ROM and no clubbing, cyanosis or edema Skin no rashes or lesions noted and no wounds Neuro CN's II-XII intact bilaterally Psych affect normal Weight / BMI Weight Weight: 128 lb 4.944 oz Body Mass Index (BMI) 23.4 ABG / Lab / Microbiology Data Result Diagrams: 12/18/21 14:15 12/18/21 14:15 Laboratory: Laboratory Results - last 24 hr 12/18/21 14:15: WBC 7.7, RBC 3.74 L, Hgb 11.8 L, Hct 37.3, MCV 99.7 H, MCH 31.6, MCHC 31.6 L, RDW Std Deviation 55.6 H, RDW Coeff of Suki 15.1 H, Plt Count 249, MPV 8.6, Immature Gran % (Auto) 1.200 H, Neut % (Auto) 71.5 H, Lymph % (Auto) 21.4, [place] % (Auto) 4.3, Eos % (Auto) 1.3, Baso % (Auto) 0.3, Absolute Neuts (auto) 5.5, Absolute Lymphs (auto) 1.65, Nucleated RBC % 0 12/18/21 14:15: Sodium 138, Potassium 4.3, Chloride 104, Carbon Dioxide 30.0, Anion Gap 4 L, BUN 12, Creatinine 1.24 H, Estim Creat Clear Calc 37.68, Est GFR (MDRD) Af Amer 56 L, Est GFR (MDRD) Non-Af 47 L, BUN/Creatinine Ratio 9.7 L, Glucose 94, Calcium 8.5, Total Bilirubin 0.10 L, AST 15, ALT 12 L, Alkaline Phosphatase 149 H, Troponin I High Sens 7, Total Protein 6.5, Albumin 2.5 L, Globulin 4.0, Albumin/Globulin Ratio 0.6 L, Lipase 27 L 12/18/21 16:24: Urine Color Straw, Urine Clarity Clear, Urine pH 7.0, Ur Specific [place] 1.005, Urine Protein Negative, Urine Glucose (UA) Normal, Urine Ketones Negative, Urine Occult Blood Negative, Urine Nitrite Negative, Urine Bilirubin Negative, Urine Urobilinogen Normal, Ur Leukocyte Esterase 25 H, Urine RBC 0 SEEN, Urine WBC 0 SEEN, Ur Squamous Epith Cells 0 SEEN, Urine Bacteria RARE, Urine Mucus 0 SEEN 12/18/21 22:42: POC Glucose 89 12/19/21 06:53: POC Glucose 93 12/19/21 11:08: POC Glucose 139 H Radiography Diagnostic Testing: Radiology Impression Chest X-Ray 12/18/21 14:02 IMPRESSION: Normal x-ray examination of the chest. Electronically Signed: Juan Jose Dorsey MD at 14:38 EDT Reading Location ID and State: [address] [place] [address] Tel , Service support , D/C Instructions Discharge Diet: No restrictions Weight Bearing Status: Weight bearing as tolerated Call your doctor if you observe: Fever of 101 or Higher, Numbness or Tingling, Shortness of breath, Dizziness, Chest pain, Increased palpitations (irregular heartbeat) and Calf discomfort Please Follow Up With: Primary care provider When: Within the next two weeks. Meaningful Use Info Meaningful Use Diagnoses (Choose all that apply): None applicable Discharge Plan Admission Admit Date/Time: 12/18/21 18:09 Primary Reason for Your Visit: Functional decline Attending Provider: Colby Chapman Primary Care Provider: Hua Mosher Consulting Providers: Heidi Zacarias Discharge Orders/Prescriptions Prescriptions: Continued sertraline 50 mg tablet 50 mg PO DAILY RF: 0 ondansetron HCl [Zofran] 4 mg tablet 4 mg PO Q6H PRN (Reason: Nausea) RF: 0 simvastatin 20 mg tablet 20 mg PO DAILY RF: 0 trazodone 100 mg tablet 100 mg PO QHS RF: 0 sertraline 100 MG tablet 100 mg PO DAILY RF: 0 ferrous sulfate 325 MG tablet 325 mg PO DAILY RF: 0 lamotrigine 100 MG tablet 100 mg PO DAILY RF: 0 bupropion HCl (smoking deter) 150 MG tablet extended release 12 hr 150 mg PO DAILY RF: 0 docusate sodium 100 MG capsule 100 mg PO BID RF: 0 furosemide 40 mg tablet 40 mg PO DAILY RF: 0 albuterol sulfate 2.5 mg /3 mL (0.083 %) Solution For Nebulization 2.5 mg inhalation Q2H PRN PRN (Reason: Dyspnea, wheezing) Qty: 3 RF: 0 Anoro Ellipta 62.5-25 mcg/actuation blister with device 1 inh inhalation DAILY RF: 0 benztropine 0.5 mg tablet 0.5 mg PO TID RF: 0 aripiprazole 10 mg tablet 10 mg PO DAILY RF: 0 omeprazole 40 mg capsule,delayed release(DR/EC) 40 mg PO DAILY RF: 0 acetaminophen 500 mg Tablet 1,000 mg PO BID PRN (Reason: Pain) RF: 0 allopurinol 300 mg tablet 300 mg PO DAILY@1200 RF: 0 Eliquis 5 mg Tablet 5 mg PO BID Qty: 60 RF: 0 Tradjenta 5 mg Tablet 5 mg PO DAILY RF: 0 Referrals / Follow Up: Hua Mosher MD [Primary Care Provider] - Within 2 Weeks Disposition Disposition (needs filled in before D/C Order can be placed): Home Health Service Documented by User: Dr. Colby Chapman MD 12/19/21 14:46 Providers Date of Admission: 12/18/21 Reason For Visit: adult failure to thrive Medications at Discharge Home Medications bupropion HCl (smoking deter) 150 mg PO DAILY 07/09/19 docusate sodium 100 mg PO BID 07/09/19 ferrous sulfate 325 mg PO DAILY 07/09/19 lamotrigine 100 mg PO DAILY 07/09/19 sertraline 100 mg PO DAILY 07/09/19 albuterol sulfate 2.5 mg INHALATION Q2H PRN PRN #3 ml 03/19/21 furosemide 40 mg tablet 40 mg PO DAILY tab 05/12/21 ondansetron HCl 4 mg tablet 4 mg PO Q6H PRN 05/12/21 sertraline 50 mg tablet 50 mg PO DAILY 05/12/21 simvastatin 20 mg tablet 20 mg PO DAILY 05/12/21 trazodone 100 mg tablet 100 mg PO QHS tab 05/12/21 Anoro Ellipta 1 inh INHALATION DAILY 05/18/21 aripiprazole 10 mg PO DAILY 05/18/21 benztropine 0.5 mg PO TID 05/18/21 omeprazole 40 mg PO DAILY 05/24/21 acetaminophen 1,000 mg PO BID PRN 06/01/21 allopurinol 300 mg PO DAILY@1200 06/01/21 Eliquis 5 mg PO BID #60 tab 06/04/21 Tradjenta 5 mg PO DAILY 09/30/21 Hospital Course Summary of Care Provided Hospital Course: This patient was seen in conjunction with STEVEN Michel. I have independently interviewed and examined the patient and reviewed pertinent history, examination findings, laboratory and plan of management. I have reviewed the note and agree with the documented findings with the few additional points. In brief, patient is 61-year-old female was admitted with fall and debility. She had fall couple weeks ago on the buttock. She walks at home with wheeled walker. She was evaluated by PT and OT did not meet criteria for skilled rehab. She might have dementia/mild cognitive deficit and needs outpatient evaluation by PCP/neurologist. Patient has multiple other comorbidities which include history of pulmonary embolism, esophageal stenosis, GERD, dyslipidemia, CKD stage IIIa, chronic iron deficiency anemia, diabetes mellitus type 2, anxiety depression bipolar disorder, COPD and gout Discharge medication reconciliation done. Discharge follow-up instructions completed. Discharge process discussed with the patient and all questions were answered to patient's satisfaction. Total time spent, exact 35 minutes on discharge meds reconciliation, examination, coordination of care with nurses and ancillary staff, review of imaging and blood test and discussion with the patient on follow-up instructions. I have discussed my assessment with TSEVEN Michel and orders have been reviewed. Physical Exam Narrative Seen and examined on the day of discharge. Patient was admitted with fall couple weeks ago. She fell on her buttock. No major injuries. Better to walk within the room. She walks with slow pace and turned 360 degree without losing balance. She wants to go home. She did not meet criteria for SNF. General: Alert, Oriented x3, Cooperative HEENT: Atraumatic, PERRLA, EOMI, Normocephalic Oral: No Gingival or Mucosal Lesions/ Ulcerations Neck: Supple, No JVD, Negative Carotid Bruits Lungs: Air entry diminished in bilateral lung bases. No crepitation/rhonchi Cardiovascular: Regular rate, Regular Rhythm, Normal S1, Normal S2, No murmurs Abdomen: Bowel Sounds Present, Soft, Non Tender, Non-Distended : No renal angle tenderness. No suprapubic tenderness. Extremities: No edema, Capillary Refill Less than 3 Seconds Skin: No rashes, No breakdown Musculoskeletal: No Tenderness to Palpation of Joints or Extremities. Muscle strength 4+/5 at major joints of lower extremities Neurological: Cranial nerves II-XII grossly intact, DTR 2+/4 Psych/Mental Status: Flat affect. ABG / Lab / Microbiology Data Result Diagrams: 12/18/21 14:15 12/18/21 14:15 Discharge Plan Admission Admit Date/Time: 12/18/21 18:09 Primary Reason for Your Visit: Functional decline Attending Provider: Colby Chapman Primary Care Provider: Hua Mosher Consulting Providers: Heidi Zacarias Discharge Orders/Prescriptions Prescriptions: Continued sertraline 50 mg tablet 50 mg PO DAILY RF: 0 ondansetron HCl [Zofran] 4 mg tablet 4 mg PO Q6H PRN (Reason: Nausea) RF: 0 simvastatin 20 mg tablet 20 mg PO DAILY RF: 0 trazodone 100 mg tablet 100 mg PO QHS RF: 0 sertraline 100 MG tablet 100 mg PO DAILY RF: 0 ferrous sulfate 325 MG tablet 325 mg PO DAILY RF: 0 lamotrigine 100 MG tablet 100 mg PO DAILY RF: 0 bupropion HCl (smoking deter) 150 MG tablet extended release 12 hr 150 mg PO DAILY RF: 0 docusate sodium 100 MG capsule 100 mg PO BID RF: 0 furosemide 40 mg tablet 40 mg PO DAILY RF: 0 albuterol sulfate 2.5 mg /3 mL (0.083 %) Solution For Nebulization 2.5 mg inhalation Q2H PRN PRN (Reason: Dyspnea, wheezing) Qty: 3 RF: 0 Anoro Ellipta 62.5-25 mcg/actuation blister with device 1 inh inhalation DAILY RF: 0 benztropine 0.5 mg tablet 0.5 mg PO TID RF: 0 aripiprazole 10 mg tablet 10 mg PO DAILY RF: 0 omeprazole 40 mg capsule,delayed release(DR/EC) 40 mg PO DAILY RF: 0 acetaminophen 500 mg Tablet 1,000 mg PO BID PRN (Reason: Pain) RF: 0 allopurinol 300 mg tablet 300 mg PO DAILY@1200 RF: 0 Eliquis 5 mg Tablet 5 mg PO BID Qty: 60 RF: 0 Tradjenta 5 mg Tablet 5 mg PO DAILY RF: 0 Referrals / Follow Up: Hua Mosher MD [Primary Care Provider] - Within 2 Weeks Disposition Disposition (needs filled in before D/C Order can be placed): Home Health Service Charges/Coding Visit Charges OBSV E&M: 44138 Observation care discharge
[2021-12-19 14:01] VITALS: BP 98/59; PULSE 84; RESP 16; TEMP 36.6; O2SAT 96
--- NOTE | 2021-12-19 15:29 | CASEMGMT ---
MICHAEL STERLING received call back from HALLIE Solis and updated on admission and planned discharge back to home with resumption of C.
== END 2021-12-19 16:22 | disposition home health service (06) ==
LOC: ED 15:41 → MS3 18:15
PROVIDERS: Admitting Provider Internal Medicine; Emergency Provider Emergency Medicine; PCP Family Medicine; Visit Provider Internal Medicine
DX: R62.7 Adult failure to thrive (principal); J43.9 Emphysema, unspecified; F31.9 Bipolar disorder, unspecified; E11.42 Type 2 diabetes mellitus with diabetic polyneuropathy; E11.22 Type 2 diabetes mellitus with diabetic chronic kidney disease; N18.31 Chronic kidney disease, stage 3a; I12.9 Hypertensive chronic kidney disease with stage 1 through stage 4 chronic kidney disease, or unspecified chronic kidney disease; D53.9 Nutritional anemia, unspecified; F41.9 Anxiety disorder, unspecified; R53.1 Weakness; K21.9 Gastro-esophageal reflux disease without esophagitis; Z79.84 Long term (current) use of oral hypoglycemic drugs; Z79.01 Long term (current) use of anticoagulants; E78.5 Hyperlipidemia, unspecified; F17.210 Nicotine dependence, cigarettes, uncomplicated; R53.81 Other malaise; M79.7 Fibromyalgia; Z79.899 Other long term (current) drug therapy; Z68.23 Body mass index [BMI] 23.0-23.9, adult; M19.90 Unspecified osteoarthritis, unspecified site; G47.33 Obstructive sleep apnea (adult) (pediatric); I25.2 Old myocardial infarction; Z86.711 Personal history of pulmonary embolism; G89.29 Other chronic pain
CPT/HCPCS: 71045; 80053; 81001; 82962; 83690; 84484; 85025; 94640; 96360; 96361; 97162; 97166; 99218; 99251; 99285; 99406; J7030; A4216; G0378; G0463

== ENCOUNTER 2021-12-22 17:52 | Emergency (ER) | payer MEDICARE, MEDICAID, SELFPAY ==
[2021-12-22 17:53] VITALS: BP 106/70; PULSE 83; RESP 16; TEMP 36.7; O2SAT 99; BMI 24.5
--- NOTE | 2021-12-22 18:08 | RAD_ITS ---
EXAM: XR LEFT FOOT COMPLETE, 3 OR MORE VIEWS CLINICAL INDICATION: fall foot pain TECHNIQUE: Frontal, lateral and oblique views of the left foot. This report was created using [employer] report generation technology. COMPARISON: None. FINDINGS: BONES/JOINTS: Mild demineralization of the bones. There is a calcaneal spur. No acute fracture. No subluxation. Normal alignment. Preservation of the joint space. No sclerotic or destructive changes observed. SOFT TISSUES: Unremarkable. No soft tissue swelling or gas. No radiopaque foreign body. RAD/Foot min 3 Views IMPRESSION: No acute findings in the left foot. Electronically Signed: Luis Antunez MD at 18:44 EDT ,
--- NOTE | 2021-12-22 18:12 | RAD_ITS ---
STUDY: XR Ankle Min 3 Views REASON FOR EXAM: Female, 61 years old. ANKLE PAIN TECHNIQUE: XR Ankle Min 3 Views LEFT COMPARISON: None. FINDINGS: Normal visualized distal tibia and fibula. Normal medial and lateral malleoli. Normal tibiotalar articulation and ankle mortise. The visualized subtalar, talonavicular, calcaneocuboid and tarsal articulations are normal. There is a plantar calcaneal spur. There is soft tissue swelling around the ankle. RAD/Ankle min 3 Views IMPRESSION: There is soft tissue swelling. Electronically Signed: Luis Antunez MD at 18:43 EDT ,
--- NOTE | 2021-12-22 18:38 | EDS_ITS ---
HPI <MARY Gamble - Last Filed: 12/22/21 19:02> History of Present Illness Chief Complaint: Fall Narrative Narrative: 61-year-old female with history of COPD, hyperlipidemia, anxiety, hypertension, type 2 diabetes presents to the emergency department after a mechanical fall x2 today. Patient states that sometimes her legs get weak and they buckle. Patient states today her left leg buckled, rolling her left ankle. Patient has edema, ecchymosis to the left ankle and is here for evaluation. Patient denies any other injury [facility] <MARY Gamble - Last Filed: 12/22/21 19:02> [facility] Medical History (Updated 12/22/21 @ 19:01 by MARY Gamble) Acute respiratory failure with hypoxia and hypercapnia Anemia Anxiety Arthritis Back pain Cardiology follow-up encounter Cervical radiculitis Chest pain Chronic back pain CKD (chronic kidney disease) stage 3, GFR 30-59 ml/min Closed fracture of left hip COPD (chronic obstructive pulmonary disease) CPAP (continuous positive airway pressure) dependence Depression Diabetes Diabetes mellitus, type II Diverticulosis Elevated troponin Emphysema, unspecified Esophageal stenosis Fibromyalgia Former smoker Gallbladder sludge Gastric reflux Gastro-esophageal reflux disease without esophagitis History of echocardiogram History of hiatal hernia History of pain when walking History of renal disease History of shoulder fracture History of stress test Hyperlipidemia Hypertension Injury of back Migraine headache Nicotine dependence, cigarettes, uncomplicated Normal colonoscopy On home oxygen therapy LATA (obstructive sleep apnea) Peripheral neuropathy Pulmonary embolism Shortness of breath on exertion Sleep apnea Smoker Smoking greater than 30 pack years Stage 2 moderate COPD by GOLD classification Thrombocytopenia Tobacco use Type 2 LA (myocardial infarction) Walker as ambulation aid Wears glasses Wears partial dentures Home Medications bupropion HCl (smoking deter) 150 mg PO DAILY 07/09/19 [History Last Taken 06/01/21] docusate sodium 100 mg PO BID 07/09/19 [History Last Taken 06/01/21] ferrous sulfate 325 mg PO DAILY 07/09/19 [History Last Taken 05/31/21] lamotrigine 100 mg PO DAILY 07/09/19 [History Last Taken 06/01/21] sertraline 100 mg PO DAILY 07/09/19 [History Last Taken 06/01/21] albuterol sulfate 2.5 mg INHALATION Q2H PRN PRN #3 ml 03/19/21 [Rx Last Taken 05/23/21] furosemide 40 mg tablet 40 mg PO DAILY tab 05/12/21 [History Last Taken 06/01/21] ondansetron HCl 4 mg tablet 4 mg PO Q6H PRN 05/12/21 [History Last Taken 06/01/21] sertraline 50 mg tablet 50 mg PO DAILY 05/12/21 [History Last Taken 06/01/21] simvastatin 20 mg tablet 20 mg PO DAILY 05/12/21 [History Last Taken 05/31/21] trazodone 100 mg tablet 100 mg PO QHS tab 05/12/21 [History Last Taken 05/31/21] Anoro Ellipta 1 inh INHALATION DAILY 05/18/21 [History Last Taken 06/01/21] aripiprazole 10 mg PO DAILY 05/18/21 [History Last Taken 06/01/21] benztropine 0.5 mg PO TID 05/18/21 [History Last Taken 06/01/21] omeprazole 40 mg PO DAILY 05/24/21 [History Last Taken 06/01/21] acetaminophen 1,000 mg PO BID PRN 06/01/21 [History Last Taken 06/01/21] allopurinol 300 mg PO DAILY@1200 06/01/21 [History Last Taken 06/01/21] Eliquis 5 mg PO BID #60 tab 06/04/21 [Rx Last Taken 09/29/21] Tradjenta 5 mg PO DAILY 09/30/21 [History Last Taken Unknown] Allergy/AdvReac Type Severity Reaction Status Date / Time No Known Allergies Allergy Verified 12/22/21 17:57 Family History Mother Hypertension Father Hypertension Diabetes Surgical History Cervical vertebral fusion history EGD with ph probe (~12/09/17) History of colonoscopy (~12/05/17) History of repair of hiatal hernia History of shoulder surgery History of tubal ligation Hx of cholecystectomy Hx of hernia repair Hx of surgical procedure Social History (Updated 12/18/21 @ 18:[address] Heidi Zacarias DO) household members: none number of children: 2 other: Currently lives alone and uses a wheeled walker to ambulate Smoking Status: Current every day smoker tobacco type: cigarettes alcohol intake: never substance use type: does not use caffeine: No what type of physical activity do you participate in: none additional social history: Brody, her son is reported to be her guardian ROS <MARY Gamble - Last Filed: 12/22/21 19:02> ROS ED ROS Narrative Constitutional: Negative for fever, chills, weight loss, weakness Eyes: Negative for vision loss, vision change, double vision ENT: Negative for any sore throat, ear pain, congestion Cardiovascular: Negative for any chest pain, tightness, palpitations, racing heartbeat Respiratory: Negative for any cough, sputum production, hemoptysis, shortness of breath, shortness of breath on exertion, orthopnea Gastrointestinal: Negative for any abdominal pain, nausea, vomiting, diarrhea, constipation, blood in stool, blood in vomit : Negative for any urinary frequency, incontinence, dysuria, retention, blood in urine Muscle skeletal: Negative for any muscle joint pain, stiffness, myalgias, arthralgias, neck pain, back pain. positive for right ankle pain Neurological: Negative for any headache, dizziness, syncope, numbness or tingling Skin: Negative for any rashes, lumps, itching, abrasions, lacerations Psychiatric: Negative for any depression, anxiety, stress, suicidal ideation, homicidal ideation Hematologic: Negative for any easy bruising, excessive bruising, easy bleeding Allergies: Negative for any eczema, hives, rash EXAM <MARY Gamble - Last Filed: 12/22/21 19:02> Physical Exam Narrative Exam Narrative: Vital signs reviewed. Extremities: Patient has pain on palpation to both the lateral, medial malleoli, patient is able to dorsiflex, plantarflex her foot have this is caused discomfort. Patient does have a +2 pedal pulse. Neuro: Cranial nerves II through XII intact, no focal neurological deficits. Skin: Clean dry and intact with no rash, purpura, petechiae, vesicles or pustules. Backslash flank: No CVA tenderness, no midline spinal tenderness, no deformity. Psych: Normal mood and affect. No SI, HI or acute psychosis. Const Vital Signs: 12/22/21 17:53 12/22/21 18:00 12/22/21 19:02 Temperature 98.0 F Temperature Source Oral Pulse Rate 83 84 Respiratory Rate 16 17 Respiratory Effort Normal Non-Labored Respiratory Depth Normal Respiratory Pattern Normal Blood Pressure 106/70 Blood Pressure Mean 82 Pulse Ox 99 Oxygen Delivery Method Room Air Positive well nourished and well developed General Appearance ED: well developed <Dr. Damir Rudd, DO - Last Filed: 12/22/21 20:45> Physical Exam Const Vital Signs: 12/22/21 17:53 12/22/21 18:00 12/22/21 19:02 Temperature 98.0 F Temperature Source Oral Pulse Rate 83 84 Respiratory Rate 16 17 Respiratory Effort Normal Non-Labored Respiratory Depth Normal Respiratory Pattern Normal Blood Pressure 106/70 Blood Pressure Mean 82 Pulse Ox 99 Oxygen Delivery Method Room Air MDM <SUAD GambleC - Last Filed: 12/22/21 19:02> [facility] Narrative Medical decision making narrative: Patient appears well, patient appears nontoxic, vital signs are stable. Patient presents to the emergency department with complaints of left ankle pain after a mechanical fall today. Patient did receive x-rays of the left ankle, left foot, these were unremarkable for any acute osseous abnormalities. Patient was given an ankle stirrup, patient does have a wheelchair as well as a walker at home that she will use. Patient instructed to ice and elevate while at rest. Also her son will also help her at home. She will be taking Tylenol for home. Instructed to follow-up with her PCP and to return here for any worsening symptoms Radiography Diagnostic Testing: Clinical Impression(s) from Imaging Studies Foot X-Ray 12/22/21 18:08 IMPRESSION: No acute findings in the left foot. Electronically Signed: Luis Antunez MD at 18:44 EDT , Ankle X-Ray 12/22/21 18:12 IMPRESSION: There is soft tissue swelling. Electronically Signed: Luis Antunez MD at 18:43 EDT , <Dr. Damir Rudd, DO - Last Filed: 12/22/21 20:45> [facility] Narrative Medical decision making narrative: I have personally performed a face to face assessment of the patient and have reviewed the LOBITO Note. I performed a substantive portion of the visit including all aspects of the following. My rios findings include: History: Patient presents after a fall that occurred today. Patient slipped and twisted her left ankle. Patient states her pain is worse over her left ankle and foot. Patient denies any head injury or loss of consciousness. Patient denies any paresthesias or weakness. Patient denies any other injuries. Exam: Vital signs are stable. Patient is afebrile. Patient is in no acute distress. There is tenderness, edema, and ecchymosis over the left ankle and left foot. There is no bony crepitance or step-off. There is no obvious deformity noted. Range of motion was limited in all motions of the left ankle and left foot secondary to pain. Pedal pulses are equal bilaterally. Sensation was intact to light touch in all digits. Capillary refill was less than 2 seconds in all digits. Medical Decison Making: X-rays of the left foot were obtained. There are 3 views. On my interpretation, there is no acute fracture or dislocation. There is mild soft tissue swelling. Radiologist also interpreted the x-rays and agrees. X-rays of the left ankle were obtained. There are 3 views. On my interpretation, there is no acute fracture or dislocation. There is mild soft tissue swelling. Radiologist also interpreted the x-rays and agrees. Patient was given an Aircast. Patient was instructed to ice and elevate the left ankle. Patient has a walker and wheelchair at home. Patient was instructed to follow- up with her primary care physician in 3 to 5 days. Patient understood and was agreeable with the plan. All questions were answered. Radiography Diagnostic Testing: Clinical Impression(s) from Imaging Studies Foot X-Ray 12/22/21 18:08 IMPRESSION: No acute findings in the left foot. Electronically Signed: Luis Antunez MD at 18:44 EDT , Ankle X-Ray 12/22/21 18:12 IMPRESSION: There is soft tissue swelling. Electronically Signed: Luis Antunez MD at 18:43 EDT , Discharge Plan Triage Chief Complaint: Fall ED Midlevel Provider: Aman Enriquez ED Provider: Damir Rudd Dx/Rx/DC Orders Clinical Impression: Fall, Ankle sprain Instructions: ED Ankle Sprain (Adult), ED Air Stirrup Ank Brace Inf Td Prescriptions: No Action sertraline 50 mg tablet 50 mg PO DAILY RF: 0 ondansetron HCl [Zofran] 4 mg tablet 4 mg PO Q6H PRN (Reason: Nausea) RF: 0 simvastatin 20 mg tablet 20 mg PO DAILY RF: 0 trazodone 100 mg tablet 100 mg PO QHS RF: 0 sertraline 100 MG tablet 100 mg PO DAILY RF: 0 ferrous sulfate 325 MG tablet 325 mg PO DAILY RF: 0 lamotrigine 100 MG tablet 100 mg PO DAILY RF: 0 bupropion HCl (smoking deter) 150 MG tablet extended release 12 hr 150 mg PO DAILY RF: 0 docusate sodium 100 MG capsule 100 mg PO BID RF: 0 furosemide 40 mg tablet 40 mg PO DAILY RF: 0 albuterol sulfate 2.5 mg /3 mL (0.083 %) Solution For Nebulization 2.5 mg inhalation Q2H PRN PRN (Reason: Dyspnea, wheezing) Qty: 3 RF: 0 Anoro Ellipta 62.5-25 mcg/actuation blister with device 1 inh inhalation DAILY RF: 0 benztropine 0.5 mg tablet 0.5 mg PO TID RF: 0 aripiprazole 10 mg tablet 10 mg PO DAILY RF: 0 omeprazole 40 mg capsule,delayed release(DR/EC) 40 mg PO DAILY RF: 0 acetaminophen 500 mg Tablet 1,000 mg PO BID PRN (Reason: Pain) RF: 0 allopurinol 300 mg tablet 300 mg PO DAILY@1200 RF: 0 Eliquis 5 mg Tablet 5 mg PO BID Qty: 60 RF: 0 Tradjenta 5 mg Tablet 5 mg PO DAILY RF: 0 Primary Care Provider: Hua Mosher Referrals: Ranney,Hua, MD [Primary Care Provider] - Activity Restrictions/Additional Instructions: You are going to take Tylenol at home for pain, you are going to ice and elevate. Print Language: Romanian Disposition Disposition: Home, Self Care Discharge Date/Time: 12/22/21 19:22
[2021-12-22 19:02] VITALS: PULSE 84; RESP 17
== END 2021-12-22 19:22 | disposition home or self-care (01) ==
PROVIDERS: Emergency Provider Emergency Medicine; PCP Family Medicine; Visit Provider Emergency Medicine
DX: S93.402A Sprain of unspecified ligament of left ankle, initial encounter (principal); J44.9 Chronic obstructive pulmonary disease, unspecified; E11.22 Type 2 diabetes mellitus with diabetic chronic kidney disease; E11.40 Type 2 diabetes mellitus with diabetic neuropathy, unspecified; N18.30 Chronic kidney disease, stage 3 unspecified; X50.1XXA Overexertion from prolonged static or awkward postures, initial encounter; F41.9 Anxiety disorder, unspecified; M19.90 Unspecified osteoarthritis, unspecified site; G89.29 Other chronic pain; F32.A Depression, unspecified; M79.7 Fibromyalgia; K21.9 Gastro-esophageal reflux disease without esophagitis; E78.5 Hyperlipidemia, unspecified; G47.33 Obstructive sleep apnea (adult) (pediatric); Z86.711 Personal history of pulmonary embolism; I25.2 Old myocardial infarction; F17.210 Nicotine dependence, cigarettes, uncomplicated; Z86.2 Personal history of diseases of the blood and blood-forming organs and certain disorders involving the immune mechanism; Z99.81 Dependence on supplemental oxygen; Z79.899 Other long term (current) drug therapy; Z79.01 Long term (current) use of anticoagulants; D64.9 Anemia, unspecified
CPT/HCPCS: 73610; 73630; 99284

== ENCOUNTER 2021-12-23 22:20 | Observation (INO) | payer MEDICARE, MEDICAID, SELFPAY ==
[2021-12-23 22:24] VITALS: BP 128/77; PULSE 100; RESP 17; TEMP 36.1; O2SAT 99; BMI 24.5
--- NOTE | 2021-12-23 23:16 | CT_ITS ---
EXAM: CT HEAD WITHOUT INTRAVENOUS CONTRAST CLINICAL INDICATION: fall TECHNIQUE: Multiple axial images were obtained of the head without intravenous contrast. This CT exam was performed using one or more of the following dose reduction techniques: automated exposure control, adjustment of the mA and/or kV according to patient size, and/or use of iterative reconstruction technique. This report was created using [employer] report generation technology. RADIATION DOSE: CTDIvol = 45 mGy, DLP = 779 mGy-cm. COMPARISON: 12/08/2021. FINDINGS: BRAIN AND EXTRA-AXIAL SPACES: Unremarkable. No intra- or extra-axial hemorrhage. No evidence of acute infarct. No intracranial mass or mass effect. There is preservation of the reaves/white matter interface. Posterior fossa structures are unremarkable. Ventricles are appropriate for age. No hydrocephalus. Basal cisterns are patent. BONES/JOINTS: Unremarkable. No discrete lytic or blastic abnormalities. SINUSES: Unremarkable as visualized. Clear. MASTOID AIR CELLS: Unremarkable. Clear. ORBITS: Visualized globes, extraocular muscles, optic nerves and retrobulbar fat appear unremarkable. CT/Brain/Head without Contrast IMPRESSION: Negative head/brain CT without intravenous contrast. Electronically Signed: Mulugeta Escoto MD at 23:56 EDT ,
--- NOTE | 2021-12-23 23:17 | EKG12_ITS ---
Test Reason : DYSRHYTHMIA Blood Pressure : / mmHG Vent. Rate : 093 BPM Atrial Rate : 093 BPM P-R Int : 168 ms QRS Dur : 092 ms QT Int : 380 ms P-R-T Axes : 057 020 058 degrees QTc Int : 472 ms Normal sinus rhythm Normal ECG Confirmed by MELISA BE, KALEB ([id number]), avid editor ROSA ROSALES ([id number]) on 12/26/2021 10:08:20 A M Referred By: RENATE Confirmed By:MOMO VINCENT MD
--- NOTE | 2021-12-23 23:18 | EDS_ITS ---
HPI History of Present Illness Chief Complaint: Chest Other Detail of Chief Complaint: Failure to thrive. Multiple recent falls. Generalized weakness. Informant: patient and family Onset/Context/Timing Onset: Days Context: Gradual Onset Timing: Continuous Current Severity: Mild Maximum Severity: Mild Narrative Narrative: 61-year-old female presents with her son-in-law. History of diabetes, renal insufficiency and multiple other medical problems. She was hospitalized for 1 day earlier this week. Was seen in the ER after that admission for a fall. She presents today with generalized weakness. Recurrent falls. Right lower rib cage pain. She had nausea and vomiting today. She denies any dysuria. Denies any fever. She is on the blood thinner Eliquis. Prior similar symptoms: Yes Recent Illness/Hospitalization: Yes PFSH PFS Medical History Acute respiratory failure with hypoxia and hypercapnia Anemia Anxiety Arthritis Back pain Cardiology follow-up encounter Cervical radiculitis Chest pain Chronic back pain CKD (chronic kidney disease) stage 3, GFR 30-59 ml/min Closed fracture of left hip COPD (chronic obstructive pulmonary disease) CPAP (continuous positive airway pressure) dependence Depression Diabetes Diabetes mellitus, type II Diverticulosis Elevated troponin Emphysema, unspecified Esophageal stenosis Fibromyalgia Former smoker Gallbladder sludge Gastric reflux Gastro-esophageal reflux disease without esophagitis History of echocardiogram History of hiatal hernia History of pain when walking History of renal disease History of shoulder fracture History of stress test Hyperlipidemia Hypertension Injury of back Migraine headache Nicotine dependence, cigarettes, uncomplicated Normal colonoscopy On home oxygen therapy LATA (obstructive sleep apnea) Peripheral neuropathy Pulmonary embolism Shortness of breath on exertion Sleep apnea Smoker Smoking greater than 30 pack years Stage 2 moderate COPD by GOLD classification Thrombocytopenia Tobacco use Type 2 MO (myocardial infarction) Walker as ambulation aid Wears glasses Wears partial dentures Home Medications docusate sodium 100 mg PO BID PRN PRN 07/09/19 [History Last Taken 06/01/21] lamotrigine 150 mg PO BID 07/09/19 [History Last Taken 06/01/21] sertraline 200 mg PO DAILY 07/09/19 [History Last Taken 06/01/21] albuterol sulfate 2.5 mg INHALATION Q2H PRN PRN #3 ml 03/19/21 [Rx Last Taken 05/23/21] furosemide 40 mg tablet 20 mg PO DAILY tab 05/12/21 [History Last Taken 06/01/21] ondansetron HCl 4 mg tablet 4 mg PO Q6H PRN 05/12/21 [History Last Taken 06/01/21] trazodone 100 mg tablet 50 mg PO QHS PRN PRN tab 05/12/21 [History Last Taken 05/31/21] Anoro Ellipta 1 inh INHALATION DAILY 05/18/21 [History Last Taken 06/01/21] aripiprazole 10 mg PO DAILY 05/18/21 [History Last Taken 06/01/21] omeprazole 40 mg PO DAILY 05/24/21 [History Last Taken 06/01/21] acetaminophen 1,000 mg PO BID PRN 06/01/21 [History Last Taken 06/01/21] allopurinol 300 mg PO DAILY@1200 06/01/21 [History Last Taken 06/01/21] Eliquis 5 mg PO BID #60 tab 06/04/21 [Rx Last Taken 09/29/21] atorvastatin 10 mg PO DAILY 12/23/21 [History Last Taken Unknown] benztropine 0.5 mg PO TID 12/23/21 [History Last Taken Unknown] donepezil 10 mg PO DAILY 12/23/21 [History Last Taken Unknown] gabapentin 100 mg PO TID 12/23/21 [History Last Taken Unknown] Allergy/AdvReac Type Severity Reaction Status Date / Time No Known Allergies Allergy Verified 12/23/21 22:26 Family History Mother Hypertension Father Hypertension Diabetes Surgical History Cervical vertebral fusion history EGD with ph probe (~12/09/17) History of colonoscopy (~12/05/17) History of repair of hiatal hernia History of shoulder surgery History of tubal ligation Hx of cholecystectomy Hx of hernia repair Hx of surgical procedure Social History household members: none number of children: 2 other: Currently lives alone and uses a wheeled walker to ambulate Smoking Status: Current every day smoker tobacco type: cigarettes alcohol intake: never substance use type: does not use caffeine: No what type of physical activity do you participate in: none additional social history: Brody, her son is reported to be her guardian ROS ROS ED ROS Narrative Generalized weakness. Frequent falls. Review of Systems ROS Unobtainable: Denies due to encephalopathy Constitutional Constitutional ED: Denies fever(s) Eyes Eyes: Denies change in vision ENT ENT ED: Denies ear pain Cardiovascular Cardiovascular: Denies chest pain Respiratory/Chest Respiratory/Chest: Denies dyspnea Gastrointestinal Gastrointestinal: Reports nausea and vomiting; Denies abdominal pain or diarrhea Genitourinary Genitourinary ED: Denies dysuria Musculoskeletal Musculoskeletal: Denies myalgias Integumentary Denies rash Neurologic Neurologic: Denies headache(s) Psychiatric Psychiatric: Denies depression Endocrine Endocrinology: Denies polyuria Allergic/Immunologic Allergic/Immunologic ED: Denies urticaria EXAM Physical Exam Narrative Exam Narrative: Three 1-year-old female no acute distress. Vital signs stable afebrile. Pulse ox 99% on room air no signs hypoxia. H EENT exam unremarkable atraumatic. Neck nontender. No lymphadenopathy. Lungs clear to auscultation. Heart regular rhythm rate about 100 no murmur. Chest wall right lower rib cage tenderness. No crepitus or subcu air. Abdomen soft nontender normal bowel sounds no peritoneal signs. Pelvic girdle intact. Moving all 4 extremities. Nontender no deformity. Back nontender. Neurologically she is awake and alert. Moving all 4 extremities. Const Vital Signs: 12/23/21 22:24 12/23/21 22:31 12/23/21 23:32 Temperature 97 F L Temperature Source Temporal Pulse Rate 100 93 Respiratory Rate 17 20 H Respiratory Effort Normal Non-Labored Blood Pressure 128/77 H 115/81 H Blood Pressure Mean 94 92 Pulse Ox 99 96 Oxygen Delivery Method Room Air Room Air Positive well nourished and well developed; Negative for obese, cachectic, contractures or unkempt General Appearance ED: well developed and NAD; Negative for unkempt, cachectic, contractures, cyanotic, diaphoretic or pallor Nutritional Appearance: Negative for cachectic or obese HEENT Reports moist mucous membranes Negative for trauma or tenderness Eyes PERRL and EOMs intact bilaterally General Eye ED: Negative for pale conjunctiva or scleral icterus Neck no lymphadenopathy, supple and no JVD General: Negative for tenderness Chest Wall inspection of chest normal; Negative for palpation of chest normal Chest Narrative: Right lower rib cage tenderness. Resp normal respiratory effort and clear to auscultation bilaterally Effort and Inspection: Negative for pain with movement Auscultation: Negative for rales or rhonchi Cardio regular rate, regular rhythm, S1 normal heart sound, S2 normal heart sound and no murmurs GI normal to inspection, nondistended, normoactive bowel sounds, non-tender, non- distended and no masses Inspection: Negative for abdominal distention Auscultation: normoactive bowel sounds Palpation: soft; Negative for tender, guarding or rebound tenderness present Back/Spine no CVA tenderness General Back: Negative for CVA tenderness Cervical Spine: Negative for cervical spine tenderness Thoracic Spine / Upper Back: Negative for thoracic spinal tenderness or paraspinal muscle tenderness Extremity normal to inspection General Extremety ED: Negative for edema or tenderness General Extremity: Negative for edema Neuro oriented x3 Sensorium / Orientation: alert; Negative for orientation impaired, lethargic or stuporous Motor Exam: strength 5/5 throughout Psych mental status grossly normal Appearance: Negative for unkempt Attitude: No agitated Mood & Affect: Negative for depressed, anxious or tearful Skin no rashes or lesions noted and no wounds General Skin Exam: Negative for jaundice or pallor MDM MDM MDM Narrative Medical decision making narrative: 61-year-old generalized weakness failure to thrive. On Eliquis having frequent falls at home. Most likely will need to be admitted. Repeat exam no change at 12:35 AM. Discussed with patient test results. Hospitalist on page. Lab Data Attestation: I reviewed the patient's lab results. Lab results narrative: CBC White count of 10. H&H 11.9 and 38. Which is her baseline. Electrolytes show a gap of 5 BUN of 16 creatinine 1.4. Glucose 121. Alk phos 138. Urinalysis shows 5-10 white cells but is contaminated with 10-25 epithelial cells no bacteria no nitrites so I do not think this is an infection. Labs: Laboratory Results - last 24 hr 12/23/21 12/23/21 12/24/21 23:25 23:25 00:03 WBC 10.9 RBC 3.80 L Hgb 11.9 L Hct 38.1 MCV 100.3 H MCH 31.3 MCHC 31.2 L RDW Std Deviation 58.0 H RDW Coeff of Suki 15.6 H Plt Count 316 MPV 8.8 Immature Gran % (Auto) 1.600 H Neut % (Auto) 71.6 H Lymph % (Auto) 18.4 L [place] % (Auto) 7.0 Eos % (Auto) 1.0 Baso % (Auto) 0.4 Absolute Neuts (auto) 7.8 H Absolute Lymphs (auto) 2.00 Nucleated RBC % 0 Sodium 142 Potassium 3.8 Chloride 105 Carbon Dioxide 32.0 Anion Gap 5 BUN 16 Creatinine 1.44 H Estim Creat Clear Calc 32.45 Est GFR (MDRD) Af Amer 47 L Est GFR (MDRD) Non-Af 39 L BUN/Creatinine Ratio 11.1 Glucose 121 H Calcium 9.0 Total Bilirubin 0.20 AST 15 ALT 11 L Alkaline Phosphatase 138 H Troponin I High Sens 8 Total Protein 6.9 Albumin 2.7 L Globulin 4.2 Albumin/Globulin Ratio 0.6 L Urine Color Yellow Urine Clarity Clear Urine pH 6.0 Ur Specific [place] 1.015 Urine Protein Negative Urine Glucose (UA) Normal Urine Ketones Negative Urine Occult Blood 10 H Urine Nitrite Negative Urine Bilirubin Negative Urine Urobilinogen Normal Ur Leukocyte Esterase 25 H Urine RBC 0-5 SEEN Urine WBC 5-10 SEEN Ur Squamous Epith Cells 10-25 SEEN Urine Bacteria 0 SEEN Urine Mucus 0 SEEN Radiography Chest X-Ray - ED: 1 View and Read by ED Physician Diagnostic Testing: Clinical Impression(s) from Imaging Studies Brain CT 12/23/21 23:16 IMPRESSION: Negative head/brain CT without intravenous contrast. Electronically Signed: Mulugeta Escoto MD at 23:56 EDT , Chest X-Ray 12/23/21 23:26 IMPRESSION: No acute cardiopulmonary abnormality. Electronically Signed: Mulugeta Escoto MD at 23:55 EDT , Rhythm Strip Rhythm Strip: Sinus Rhythm Rate: 93 Ectopy: None EKG Initial EKG: Attestation: I personally reviewed and interpreted this EKG as follows: Interpretation: Sinus Rhythm and No Acute Injury Pattern Comments: Normal sinus rhythm rate of 93. No acute signs of MO, ischemia or dysrhythmia. Discharge Plan Triage Chief Complaint: Chest Other ED Provider: Ever Ellis Dx/Rx/DC Orders Clinical Impression: Falls, Adult failure to thrive, Chronic anticoagulation, History of diabetes mellitus Prescriptions: No Action ondansetron HCl [Zofran] 4 mg tablet 4 mg PO Q6H PRN (Reason: Nausea) RF: 0 trazodone 100 mg tablet 50 mg PO QHS PRN PRN (Reason: Sleep) RF: 0 sertraline 100 MG tablet 200 mg PO DAILY RF: 0 lamotrigine 100 MG tablet 150 mg PO BID RF: 0 docusate sodium 100 MG capsule 100 mg PO BID PRN PRN (Reason: Constipation) RF: 0 furosemide 40 mg tablet 20 mg PO DAILY RF: 0 albuterol sulfate 2.5 mg /3 mL (0.083 %) Solution For Nebulization 2.5 mg inhalation Q2H PRN PRN (Reason: Dyspnea, wheezing) Qty: 3 RF: 0 Anoro Ellipta 62.5-25 mcg/actuation blister with device 1 inh inhalation DAILY RF: 0 aripiprazole 10 mg tablet 10 mg PO DAILY RF: 0 omeprazole 40 mg capsule,delayed release(DR/EC) 40 mg PO DAILY RF: 0 acetaminophen 500 mg Tablet 1,000 mg PO BID PRN (Reason: Pain) RF: 0 allopurinol 300 mg tablet 300 mg PO DAILY@1200 RF: 0 Eliquis 5 mg Tablet 5 mg PO BID Qty: 60 RF: 0 atorvastatin 10 mg Tablet 10 mg PO DAILY RF: 0 donepezil 10 mg Tablet 10 mg PO DAILY RF: 0 benztropine 0.5 mg Tablet 0.5 mg PO TID RF: 0 gabapentin 100 mg Tablet 100 mg PO TID RF: 0 Primary Care Provider: Hua Mosher Referrals: Hua Mosher MD [Primary Care Provider] - Disposition Disposition: Acute Care [facility]
--- NOTE | 2021-12-23 23:26 | RAD_ITS ---
EXAM: XR CHEST, 1 VIEW CLINICAL INDICATION: weakness TECHNIQUE: Frontal view of the chest. This report was created using [employer] report generation technology. COMPARISON: 12/18/2021. FINDINGS: LUNGS AND PLEURAL SPACES: Unremarkable. No consolidation or edema. No pneumothorax. No effusion. HEART: Unremarkable. Cardiac silhouette not enlarged. MEDIASTINUM: Central airways and mediastinal contour are unremarkable. BONES/JOINTS: Anterior cervical fusion lower cervical spine. SOFT TISSUES: Unremarkable. UPPER ABDOMEN: Stomach is moderately distended with gas. RAD/Chest 1 View (Portable) IMPRESSION: No acute cardiopulmonary abnormality. Electronically Signed: Mulugeta Escoto MD at 23:55 EDT ,
[2021-12-23 23:32] VITALS: BP 115/81; PULSE 93; RESP 20; O2SAT 96
[2021-12-23 23:53] LABS: ALB/GLOB Ratio 0.6 RATIO (0.9-2.4); AST(SGOT) 15 U/L (15-37); Alanine Aminotransfer ALT/SGPT 11 U/L (13-56); Albumin, Serum 2.7 g/dL (3.2-5.0); Alkaline Phosphatase 138 U/L (45-117); Anion Gap 5 (5-15); BUN 16 mg/dL (7-18); BUN/Creat Ratio 11.1 RATIO (10-20); Chloride 105 mmol/L (98-107); Creatinine, Serum 1.44 mg/dL (0.55-1.02); EST Glomerular Filtration Rate 39 mL/min (>60); Est Glom Filt Rate - Afr Amer 47 mL/min (>60); Estimated Creatinine Clearance 32.45 ml/min; Globulin 4.2 g/dL (2.2-4.2); Glucose 121 mg/dL (74-106); Potassium 3.8 mmol/L (3.5-5.1); Protein, Total 6.9 g/dL (6.4-8.2); Sodium Level 142 mmol/L (136-145); Troponin-I HS 8 pg/mL (3.0-54.0)
[2021-12-23 23:57] LABS: Absolute Neutrophil Count 7.8 X10^3/uL (2.0-7.7); Basophil# 0.04 X10^3/uL; Basophil% 0.4 % (0-1); Eosinophil# 0.11 X10^3/uL; Hematocrit 38.1 % (37-47); Hemoglobin 11.9 g/dL (12.0-15.0); Lymphocyte % 18.4 % (19-41); Mean Corp Hgb Conc 31.2 g/dL (32-36); Mean Corpuscular Hgb 31.3 pg (27.0-32.0); Mean Corpuscular Volume 100.3 fL (81-99); Mean Platelet Vol. 8.8 fl (6.2-12.0); Monocyte# 0.76 X10^3/uL; NRBC Flagged by Analyzer 0 % (0-5); Neutrophil % 71.6 % (47-70); Platelet Count 316 K/mm3 (150-450); RBC Distribution Width CV 15.6 % (11.6-14.6); White Blood Count 10.9 K/mm3 (4.4-11.0)
[2021-12-24 00:11] LABS: Bacteria 0 SEEN /hpf (None Seen); Mucous, Urine 0 SEEN /hpf (<or=2+)
[2021-12-24 00:14] LABS: Color, Urine Yellow (Yellow); Glucose, Dipstick Normal (Normal); Ketone-Dipstick Negative (Negative); Leukocyte Esterase-Dipstick 25 /ul (Negative); Nitrite-Dipstick Negative (Negative); Occult Blood-Urine 10 /ul (Negative); Protein-Dipstick Negative (Negative); Specific Gravity, Urine 1.015 (1.002-1.030); Urine Bilirubin Dipstick Negative (Negative); Urine Clarity Clear (Clear); Urine Urobilinogen Normal (Normal)
[2021-12-24 00:32] LABS: Red Blood Cells-Urine 0-5 SEEN /hpf (0-5); Squamous Epithelial Cells - UA 10-25 SEEN /hpf (5-10); White Blood Cells 5-10 SEEN /hpf (0-5)
[2021-12-24 01:00] VITALS: BP 102/61; PULSE 91; RESP 17; TEMP 35.7; O2SAT 98
--- NOTE | 2021-12-24 01:16 | PCM.HP.STD ---
HPI - General General Date of Admission: 12/24/21 Date of Service: 12/24/21 Chief Complaint: Acute debility HPI Narrative MARGARITA JOSHI, is a 61 F who presents to the emergency room at [facility] after being brought in by her son-in-law due to debility at home and inability to perform ADLs and take care of her self. Patient lives alone, she has been discharged to a custodial facility in the past from the hospital, the last time she was in the hospital here she was discharged on 12/19/2021-at that time home health was set up for the patient and she did not go to an extended care facility. At the time of my examination, patient is somnolent, she is hard to awaken and so a review of systems was not able to be obtained from her by myself. Emergency room physician talked with the patient's son-in-law and he stated that she was unable to take care of her self at home and she needed placement in a custodial facility. 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 Patient has multiple medical problems listed including COPD, bipolar disorder, type 2 diabetes, chronic back pain, and benign esophageal stenosis. Work-up in the emergency room today included a CBC that was remarkable for hemoglobin of 11.9, chemistry panel showed an elevated creatinine at 1.44-it appears the patient has baseline chronic kidney disease-and urinalysis revealed 5-10 WBCs, 10-25 squamous cells, and 0 bacteria. Chest x-ray showed no acute cardiopulmonary abnormality, brain CT showed no abnormalities. Patient had x-rays of her left ankle performed on 12/22/2021 secondary to a sustaining a fall, these x-rays did not show a fracture only soft tissue swelling. Patient will be placed in observation status on MedSurg 3, she will need placement in a custodial facility, her home medications will be continued. It appears that the patient is on chronic anticoagulation secondary to a past history of PE. [facility] Medical History Acute respiratory failure with hypoxia and hypercapnia Anemia Anxiety Arthritis Back pain Cardiology follow-up encounter Cervical radiculitis Chest pain Chronic back pain CKD (chronic kidney disease) stage 3, GFR 30-59 ml/min Closed fracture of left hip COPD (chronic obstructive pulmonary disease) CPAP (continuous positive airway pressure) dependence Depression Diabetes Diabetes mellitus, type II Diverticulosis Elevated troponin Emphysema, unspecified Esophageal stenosis Fibromyalgia Former smoker Gallbladder sludge Gastric reflux Gastro-esophageal reflux disease without esophagitis History of echocardiogram History of hiatal hernia History of pain when walking History of renal disease History of shoulder fracture History of stress test Hyperlipidemia Hypertension Injury of back Migraine headache Nicotine dependence, cigarettes, uncomplicated Normal colonoscopy On home oxygen therapy LATA (obstructive sleep apnea) Peripheral neuropathy Pulmonary embolism Shortness of breath on exertion Sleep apnea Smoker Smoking greater than 30 pack years Stage 2 moderate COPD by GOLD classification Thrombocytopenia Tobacco use Type 2 OH (myocardial infarction) Walker as ambulation aid Wears glasses Wears partial dentures Home Medications docusate sodium 100 mg PO BID PRN PRN 07/09/19 [History Last Taken 06/01/21] lamotrigine 150 mg PO BID 07/09/19 [History Last Taken 06/01/21] sertraline 200 mg PO DAILY 07/09/19 [History Last Taken 06/01/21] albuterol sulfate 2.5 mg INHALATION Q2H PRN PRN #3 ml 03/19/21 [Rx Last Taken 05/23/21] furosemide 40 mg tablet 20 mg PO DAILY tab 05/12/21 [History Last Taken 06/01/21] ondansetron HCl 4 mg tablet 4 mg PO Q6H PRN 05/12/21 [History Last Taken 06/01/21] trazodone 100 mg tablet 50 mg PO QHS PRN PRN tab 05/12/21 [History Last Taken 05/31/21] Anoro Ellipta 1 inh INHALATION DAILY 05/18/21 [History Last Taken 06/01/21] aripiprazole 10 mg PO DAILY 05/18/21 [History Last Taken 06/01/21] omeprazole 40 mg PO DAILY 05/24/21 [History Last Taken 06/01/21] acetaminophen 1,000 mg PO BID PRN 06/01/21 [History Last Taken 06/01/21] allopurinol 300 mg PO DAILY@1200 06/01/21 [History Last Taken 06/01/21] Eliquis 5 mg PO BID #60 tab 06/04/21 [Rx Last Taken 09/29/21] atorvastatin 10 mg PO DAILY 12/23/21 [History Last Taken Unknown] benztropine 0.5 mg PO TID 12/23/21 [History Last Taken Unknown] donepezil 10 mg PO DAILY 12/23/21 [History Last Taken Unknown] gabapentin 100 mg PO TID 12/23/21 [History Last Taken Unknown] Allergy/AdvReac Type Severity Reaction Status Date / Time No Known Allergies Allergy Verified 12/23/21 22:26 Family History Mother Hypertension Father Hypertension Diabetes Surgical History Cervical vertebral fusion history EGD with ph probe (~12/09/17) History of colonoscopy (~12/05/17) History of repair of hiatal hernia History of shoulder surgery History of tubal ligation Hx of cholecystectomy Hx of hernia repair Hx of surgical procedure Social History household members: none number of children: 2 other: Currently lives alone and uses a wheeled walker to ambulate Smoking Status: Current every day smoker tobacco type: cigarettes alcohol intake: never substance use type: does not use caffeine: No what type of physical activity do you participate in: none additional social history: Brody, her son is reported to be her guardian ROS RENETTA Narrative Unable to obtain review of systems due to patient's lethargy and somnolence. Vital Signs Vital Signs Vital Signs: 12/23/21 22:24 12/23/21 22:31 12/23/21 23:32 Temperature 97 F L Temperature Source Temporal Pulse Rate 100 93 Respiratory Rate 17 20 H Respiratory Effort Normal Non-Labored Blood Pressure 128/77 H 115/81 H Blood Pressure Mean 94 92 Pulse Ox 99 96 Oxygen Delivery Method Room Air Room Air 12/24/21 01:00 Temperature 96.2 F L Temperature Source Temporal Pulse Rate 91 Respiratory Rate 17 Respiratory Effort Blood Pressure 102/61 Blood Pressure Mean 74 Pulse Ox 98 Oxygen Delivery Method Weight Weight: 61 kg Body Mass Index (BMI) 24.5 Physical Exam Const no apparent distress Constitutional Narrative: Patient appears older than her stated age General Appearance: well kempt and well developed Orientation / Consciousness: awake, oriented to person, oriented to place and oriented to time HEENT normocephalic and head/scalp atraumatic Eyes conjunctivae normal Neck nuchal rigidity, supple, no JVD, thyroid normal and no carotid bruits General: trachea midline Resp normal respiratory effort, no retractions, no use of accessory muscles and clear to auscultation bilaterally Auscultation: Negative for rales, rhonchi or wheezes Cardio regular rate, regular rhythm, S1 normal heart sound, S2 normal heart sound, no murmurs, no rub and no gallops GI normal to inspection, nondistended, normoactive bowel sounds, soft to palpation, non-tender and non-distended Extremity no clubbing, cyanosis or edema Skin no rashes or lesions noted General Skin Exam: no breakdown Neuro CN's II-XII intact bilaterally and no sensory deficits noted Neuro Narrative: Patient is somnolent and lethargic, she awakens to painful stimulation but is otherwise drowsy Psych Psych Narrative: Patient is somnolent and lethargic Results Lab / Micro Data Result Diagrams: 12/23/21 23:25 12/23/21 23:25 Labs: Laboratory Results - last 24 hr 12/23/21 23:25: WBC 10.9, RBC 3.80 L, Hgb 11.9 L, Hct 38.1, MCV 100.3 H, MCH 31.3, MCHC 31.2 L, RDW Std Deviation 58.0 H, RDW Coeff of Suki 15.6 H, Plt Count 316, MPV 8.8, Immature Gran % (Auto) 1.600 H, Neut % (Auto) 71.6 H, Lymph % (Auto) 18.4 L, [place] % (Auto) 7.0, Eos % (Auto) 1.0, Baso % (Auto) 0.4, Absolute Neuts (auto) 7.8 H, Absolute Lymphs (auto) 2.00, Nucleated RBC % 0 12/23/21 23:25: Sodium 142, Potassium 3.8, Chloride 105, Carbon Dioxide 32.0, Anion Gap 5, BUN 16, Creatinine 1.44 H, Estim Creat Clear Calc 32.45, Est GFR (MDRD) Af Amer 47 L, Est GFR (MDRD) Non-Af 39 L, BUN/Creatinine Ratio 11.1, Glucose 121 H, Calcium 9.0, Total Bilirubin 0.20, AST 15, ALT 11 L, Alkaline Phosphatase 138 H, Troponin I High Sens 8, Total Protein 6.9, Albumin 2.7 L, Globulin 4.2, Albumin/Globulin Ratio 0.6 L 12/24/21 00:03: Urine Color Yellow, Urine Clarity Clear, Urine pH 6.0, Ur Specific [place] 1.015, Urine Protein Negative, Urine Glucose (UA) Normal, Urine Ketones Negative, Urine Occult Blood 10 H, Urine Nitrite Negative, Urine Bilirubin Negative, Urine Urobilinogen Normal, Ur Leukocyte Esterase 25 H, Urine RBC 0-5 SEEN, Urine WBC 5-10 SEEN, Ur Squamous Epith Cells 10-25 SEEN, Urine Bacteria 0 SEEN, Urine Mucus 0 SEEN Rhythm Strip Rhythm Strip: Sinus Rhythm Rate: 93 Ectopy: None Radiology Impression Brain CT 12/23/21 23:16 IMPRESSION: Negative head/brain CT without intravenous contrast. Electronically Signed: Mulugeta Escoto MD at 23:56 EDT , Chest X-Ray 12/23/21 23:26 IMPRESSION: No acute cardiopulmonary abnormality. Electronically Signed: Mulugeta Escoto MD at 23:55 EDT , Assessment & Plan Assessment/Plan (1) Generalized weakness: PLAN: 1. Acute debility-probably secondary to multiple medical problems-COPD, bipolar disorder, generalized debility-patient will be placed into observation status on [facility] 3, she will be seen by PT and OT, she will need placement in a custodial facility for rehab services #2 COPD-patient will receive DuoNeb aerosols #3 bipolar disorder-patient's home medications will be continued #4 hyperlipidemia-patient is on atorvastatin #5 chronic anticoagulation secondary to history of PE-patient will remain on Eliquis #6 GERD with history of benign esophageal stricture-patient will remain on a PPI #7 chronic kidney [id number] IIIb-complicates care, prognosis, and outcome Charges/Coding Visit Charges OBSV E&M: 90257 Initial observation care L3
[2021-12-24 01:42] VITALS: BMI 22.9
[2021-12-24 01:44] VITALS: BP 118/69; PULSE 82; RESP 18; TEMP 36.5; O2SAT 99
[2021-12-24] MEDS: Acetaminophen 325 MG Tablet 650 MG PO (06:42)
[2021-12-24] MEDS: Gabapentin 100 MG Capsule PO (06:45)
[2021-12-24] MEDS: Benztropine Mesylate 0.5 MG TABLET PO ×3 (06:46→22:03)
--- NOTE | 2021-12-24 07:27 | PN.HOSP_ITS ---
Subjective Subjective Follow-up for recurrent fall, pain over left ankle and right lower rib pain Objective Data Objective Data Vital Signs: Vital Signs Temp Pulse Resp BP Pulse Ox 97.7 F L 82 18 118/69 99 12/24/21 01:44 12/24/21 01:44 12/24/21 01:44 12/24/21 01:44 12/24/21 01:44 Oxygen Delivery Method Room Air Weight: 125 lb 10.616 oz Body Mass Index (BMI) 22.9 Intake & Output: Intake and Output for Last 24 Hours 12/22/21 12/23/21 12/24/21 23:59 23:59 23:59 Output Total 200 / 200 Balance -200 / -200 Lab / Micro Data Result Diagrams: 12/23/21 23:25 12/23/21 23:25 Labs: Laboratory Results - last 24 hr 12/23/21 23:25: WBC 10.9, RBC 3.80 L, Hgb 11.9 L, Hct 38.1, MCV 100.3 H, MCH 31.3, MCHC 31.2 L, RDW Std Deviation 58.0 H, RDW Coeff of Suki 15.6 H, Plt Count 316, MPV 8.8, Immature Gran % (Auto) 1.600 H, Neut % (Auto) 71.6 H, Lymph % (Auto) 18.4 L, Whitfield % (Auto) 7.0, Eos % (Auto) 1.0, Baso % (Auto) 0.4, Absolute Neuts (auto) 7.8 H, Absolute Lymphs (auto) 2.00, Nucleated RBC % 0 12/23/21 23:25: Sodium 142, Potassium 3.8, Chloride 105, Carbon Dioxide 32.0, Anion Gap 5, BUN 16, Creatinine 1.44 H, Estim Creat Clear Calc 32.45, Est GFR (MDRD) Af Amer 47 L, Est GFR (MDRD) Non-Af 39 L, BUN/Creatinine Ratio 11.1, Glucose 121 H, Calcium 9.0, Total Bilirubin 0.20, AST 15, ALT 11 L, Alkaline Phosphatase 138 H, Troponin I High Sens 8, Total Protein 6.9, Albumin 2.7 L, Globulin 4.2, Albumin/Globulin Ratio 0.6 L 12/24/21 00:03: Urine Color Yellow, Urine Clarity Clear, Urine pH 6.0, Ur Specific [place] 1.015, Urine Protein Negative, Urine Glucose (UA) Normal, Urine Ketones Negative, Urine Occult Blood 10 H, Urine Nitrite Negative, Urine Bilirubin Negative, Urine Urobilinogen Normal, Ur Leukocyte Esterase 25 H, Urine RBC 0-5 SEEN, Urine WBC 5-10 SEEN, Ur Squamous Epith Cells 10-25 SEEN, Urine Bacteria 0 SEEN, Urine Mucus 0 SEEN Radiography Diagnostic Testing: Radiology Impression Brain CT 12/23/21 23:16 IMPRESSION: Negative head/brain CT without intravenous contrast. Electronically Signed: Mulugeta Escoto MD at 23:56 EDT , Chest X-Ray 12/23/21 23:26 IMPRESSION: No acute cardiopulmonary abnormality. Electronically Signed: Mulugeta Escoto MD at 23:55 EDT , Rhythm Strip Rhythm Strip: Sinus Rhythm Rate: 93 Ectopy: None Physical Exam Narrative Patient was discharged on past Sunday, , 12/19 she went home on past Sunday, twisted her left ankle with swelling and pain and cannot put weight on it.. While going in the kitchen, her knees buckled down and she fell down on her back and right side of chest. She complains of right lower rib pain She wants to go to back to home. She further asked why she is in the hospital but she recalled that her son-in-law was in the ED. Physical exam General: Alert, Oriented x3, Cooperative HEENT: Atraumatic, PERRLA, EOMI, Normocephalic Oral: No Gingival or Mucosal Lesions/ Ulcerations Neck: Supple, No JVD, Negative Carotid Bruits Lungs: Air entry diminished in bilateral lung bases. No crepitation/rhonchi Cardiovascular: Regular rate, Regular Rhythm, Normal S1, Normal S2, No murmurs Abdomen: Bowel Sounds Present, Soft, Non Tender, Non-Distended : No renal angle tenderness. No suprapubic tenderness. Extremities: No edema, Capillary Refill Less than 3 Seconds Skin: No rashes, No breakdown Musculoskeletal: Tenderness, swelling and edema over bilateral malleoli of left ankle. Tenderness also over right lower ribs. Muscle strength 4/5 at major joints of lower extremities Neurological: Cranial nerves II-XII grossly intact, DTR 2+/4 Psych/Mental Status: Flat affect. Cognitive deficits/early dementia. Assessment & Plan Assessment/Plan (1) Generalized weakness: PLAN: This 61-year-old female was readmitted after 5 days of discharge with fall, left ankle twisting and right lower rib pain. 1. Acute debility with recent fall: Right ribs individually reviewed shows no demonstrated fracture. There is reporting of possible deformity of the right humeral surgical neck. Previous x-ray of 10/27/2021 shows mildly displaced fracture of right humeral neck. Patient also had left ankle x-ray shows diffuse soft tissue swelling with degenerative changes. Previous x-ray of left ankle on 12/22 showed similar picture overall x-ray shows patient has osteopenia, generalized degenerative changes. PT and OT and pain control. Patient had left ankle brace put him in the ED. Patient has wheeled walker at home. #2 COPD-no exacerbation. Continue DuoNeb aerosol as needed. 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 Electronically Signed: Mulugeta Escoto MD at 23:56 EDT , Chest X-Ray 12/23/21 23:26 IMPRESSION: No acute cardiopulmonary abnormality. Electronically Signed: Mulugeta Escoto MD at 23:55 EDT , Ankle X-Ray 12/24/21 09:43 IMPRESSION: Degenerative changes. Diffuse soft tissue swelling. Electronically Signed: Margi Montaño MD at 10:39 EDT , Ribs w/Chest X-Ray 12/24/21 09:43 IMPRESSION: RIBS: Indeterminate deformity of the right proximal humerus concerning for an underlying fracture, recommend dedicated images of the humerus for further characterization. CHEST: No acute cardiopulmonary process. Charges/Coding Visit Charges Inpatient E&M: 70422 Subs Hosp L2
[2021-12-24 07:34] VITALS: O2SAT 96
[2021-12-24 08:00] VITALS: BP 120/70; PULSE 70; RESP 18; TEMP 36.7; O2SAT 98
[2021-12-24] MEDS: Lactated Ringers 1,000 ML 100 ML IV (08:23)
[2021-12-24] MEDS: Sertraline 100 MG Tablet 200 MG PO (09:26)
[2021-12-24] MEDS: Furosemide 20 MG Tablet PO (09:26)
[2021-12-24] MEDS: Pantoprazole Sodium 40 MG Tablet PO (09:26)
[2021-12-24] MEDS: lamoTRIgine 150 MG Tablet PO ×2 (09:27→22:06)
[2021-12-24] MEDS: Donepezil HCl 10 MG Tablet PO (09:27)
[2021-12-24] MEDS: ARIPiprazole 10 MG Tablet PO (09:27)
[2021-12-24] MEDS: APIXABAN 5 MG TABLET PO ×2 (09:30→22:04)
--- NOTE | 2021-12-24 09:43 | RAD_ITS ---
STUDY: X-RAY - UNILATERAL RIBS ( RIGHT ) WITH CHEST REASON FOR EXAM: Female, 61 years old. Fall, right lower rib pain TECHNIQUE - RIBS: 4 view(s) of the ribs. TECHNIQUE - CHEST: Single frontal view of the chest. COMPARISON: 12/23/2021 at 11:26 AM FINDINGS - RIBS: Normal visualized ribs without a demonstrated fracture. FINDINGS - CHEST: There is no new focal consolidation. There is a stable curvilinear opacity within the right lower lung which may be secondary to a bleb. Normal size heart. Normal mediastinum and praveen. Normal visualized pulmonary arteries. Normal visualized aortic arch and descending thoracic aorta. Normal visualized thoracic spine. There is a possible deformity of the right humeral surgical neck. There is no demonstrated abnormality of the visualized soft tissue structures of the upper abdomen. RAD/Ribs Uni Min 3V w/PA Chest IMPRESSION: RIBS: Indeterminate deformity of the right proximal humerus concerning for an underlying fracture, recommend dedicated images of the humerus for further characterization. CHEST: No acute cardiopulmonary process. Electronically Signed: Margi Montaño MD at 10:46 EDT ,
--- NOTE | 2021-12-24 09:43 | RAD_ITS ---
STUDY: X-RAY - LEFT ANKLE REASON FOR EXAM: Female, 61 years old. Left ankle twisting and spasm TECHNIQUE: 4 view(s) of the ankle. COMPARISON: 12/22/2021 FINDINGS: There are degenerative changes of the mid and hindfoot. No acute fracture nor dislocation. There is diffuse soft tissue swelling. RAD/Ankle min 3 Views IMPRESSION: Degenerative changes. Diffuse soft tissue swelling. Electronically Signed: Margi Montaño MD at 10:39 EDT ,
[2021-12-24] MEDS: Allopurinol 300 MG Tablet PO (13:07)
[2021-12-24 14:00] VITALS: BP 120/63; PULSE 81; RESP 18; TEMP 36.2; O2SAT 97
[2021-12-24] MEDS: Mag Hydrox/Al Hydrox/Simeth 30 ML UDC 15 ML PO (14:32)
--- NOTE | 2021-12-24 15:30 | CASEMGMT ---
Addendum entered by Og Long 12/25/21 08:59: Late entry for 12/24/21 @ 1730: MICHAEL STERLING to pt's room. Pt stated to MICHAEL STERLING that she wants to go home @ discharge. Discussed PT/OT recommendations for SNF and that w/the amt of assistance she is needing, it would not be safe for her to go home alone. She stated, Where am I going? She was made aware MICHAEL STERLING has spoken w/her son and plan is for SNF and his 1st choice is [facility], but it is not certain they are in-network w/her insurance yet and this will be looked into further on Sunday. She voices understanding and is agreeable. Original Note: MICHAEL STERLING TROUBLE OPERATOR CM placed call to pt's son, Bordy, for initial transition planning/care coordination assessment. MICHAEL STERLING introduced self and role at [facility].? Brody states he is pt's legal guardian and states he can bring the documents in to [facility] to be placed on pt's chart this evening when he comes to visit pt. Pt was admitted to [facility] earlier this week. See Solomon RODRIGUEZ CM, assessment done on 12/19/21. PT/OT evals have been reviewed and son made aware SNF is recommended. Pt only able to ambulate 4-5 ft w/WW. Brody states is agreeable to SNF. He states pt has been to [facility] in the past and they had good luck with that and that is his 1st choice. MICHAEL STERLING informed him [facility] was not on the list of In-network facilities, but this could be looked into on Sunday to verify. He stated he thinks pt may have had a different insurance when she went to [facility], but he is not sure. MICHAEL STERLING inquired if he had 2nd or 3rd choices, if [facility] not in-network, and he states he does not know of any other facilities. MICHAEL STERLING informed him a list of SNF providers in pt's network would be placed in pt's room for him to review. MICHAEL STERLING placed list of?SNF providers including quality and resource use data and consistent with the patient's preferred geographic region, medical needs, and insurance network in pt's room. NIX form explained to Brody re: Observation status for treatment of acute debility.? Explained hospitalization will be paid per? her insurance policy for Outpatient billing?and condition will continue to be evaluated for Inpt necessity. Also let him know that [facility] sends paper in the billing packet with their phone number if questions arise. He verbalizes understanding and does not have any questions. ?Form signed as a telephone signature by this MICHAEL STERLING and dry pan chargerParvez gilliland. Copy made and placed in chart, and original placed in pt's room. Pt was discharged home 12/19 w/[facility] through [facility]. MICHAEL STERLING placed call to [facility] and left message w/answering service that pt has been admitted under OBS @ [facility]. PLAN: ?SNF Curt RUTHERFORD RN, CM
[2021-12-24 20:00] VITALS: BP 107/60; PULSE 84; RESP 16; TEMP 36.9; O2SAT 94
[2021-12-24] MEDS: Atorvastatin Calcium 10 MG Tablet PO (22:04)
[2021-12-25] MEDS: Gabapentin 100 MG Capsule PO ×4 (01:00→22:20)
[2021-12-25 02:15] VITALS: BP 101/61; PULSE 82; RESP 16; TEMP 36.6; O2SAT 93
[2021-12-25] MEDS: Pantoprazole Sodium 40 MG Tablet PO (05:58)
[2021-12-25] MEDS: Donepezil HCl 10 MG Tablet PO (05:58)
[2021-12-25] MEDS: ARIPiprazole 10 MG Tablet PO (05:58)
[2021-12-25] MEDS: Benztropine Mesylate 0.5 MG TABLET PO ×3 (05:59→22:20)
[2021-12-25] MEDS: Sertraline 100 MG Tablet 200 MG PO (05:59)
[2021-12-25] MEDS: Furosemide 20 MG Tablet PO (05:59)
[2021-12-25] MEDS: lamoTRIgine 150 MG Tablet PO ×2 (05:59→22:21)
[2021-12-25] MEDS: APIXABAN 5 MG TABLET PO ×2 (05:59→22:20)
[2021-12-25 06:51] LABS: Anion Gap 1 (5-15); BUN 16 mg/dL (7-18); BUN/Creat Ratio 12.1 RATIO (10-20); Calcium,Total 8.9 mg/dL (8.5-10.1); Chloride 107 mmol/L (98-107); Creatinine, Serum 1.32 mg/dL (0.55-1.02); EST Glomerular Filtration Rate 43 mL/min (>60); Est Glom Filt Rate - Afr Amer 53 mL/min (>60); Glucose 118 mg/dL (74-106); Potassium 3.5 mmol/L (3.5-5.1); Sodium Level 143 mmol/L (136-145)
[2021-12-25 06:57] VITALS: O2SAT 93
--- NOTE | 2021-12-25 07:34 | PN.HOSP_ITS ---
Subjective Subjective No new complaints. Left bilateral minimal pain. Swelling is better Objective Data Objective Data Vital Signs: Vital Signs Temp Pulse Resp BP Pulse Ox 97.9 F 82 16 101/61 93 12/25/21 02:15 12/25/21 02:15 12/25/21 02:15 12/25/21 02:15 12/25/21 06:57 Oxygen Flow Rate (L/min) 1 Oxygen Delivery Method Room Air Weight: 125 lb 10.616 oz Body Mass Index (BMI) 22.9 Intake & Output: Intake and Output for Last 24 Hours 12/23/21 12/24/21 12/25/21 23:59 23:59 23:59 Intake Total 1520 / 1520 Output Total 200 / 200 Balance 1320 / 1320 Lab / Micro Data Result Diagrams: 12/23/21 23:25 12/25/21 06:00 Labs: Laboratory Results - last 24 hr 12/25/21 06:00: Sodium 143, Potassium 3.5, Chloride 107, Carbon Dioxide 35.0 H, Anion Gap 1 L, BUN 16, Creatinine 1.32 H, Estim Creat Clear Calc 35.40, Est GFR (MDRD) Af Amer 53 L, Est GFR (MDRD) Non-Af 43 L, BUN/Creatinine Ratio 12.1, Glucose 118 H, Calcium 8.9 Radiography Diagnostic Testing: Radiology Impression Ankle X-Ray 12/24/21 09:43 IMPRESSION: Degenerative changes. Diffuse soft tissue swelling. Electronically Signed: Margi Montaño MD at 10:39 EDT , Ribs w/Chest X-Ray 12/24/21 09:43 IMPRESSION: RIBS: Indeterminate deformity of the right proximal humerus concerning for an underlying fracture, recommend dedicated images of the humerus for further characterization. CHEST: No acute cardiopulmonary process. Electronically Signed: Margi Montaño MD at 10:46 EDT , Rhythm Strip Rhythm Strip: Sinus Rhythm Rate: 93 Ectopy: None Physical Exam Narrative business banking relationship manager discussed with the patient and she agreed for custodial. Physical exam General: Alert, Oriented x3, Cooperative HEENT: Atraumatic, PERRLA, EOMI, Normocephalic Oral: No Gingival or Mucosal Lesions/ Ulcerations Neck: Supple, No JVD, Negative Carotid Bruits Lungs: Air entry diminished in bilateral lung bases. No crepitation/rhonchi Cardiovascular: Regular rate, Regular Rhythm, Normal S1, Normal S2, No murmurs Abdomen: Bowel Sounds Present, Soft, Non Tender, Non-Distended : No renal angle tenderness. No suprapubic tenderness. Extremities: No edema, Capillary Refill Less than 3 Seconds Skin: No rashes, No breakdown Musculoskeletal: Tenderness swelling and edema over bilateral malleoli of left ankle is better. Mild tenderness also over right lower ribs. Muscle strength 4/5 at major joints of lower extremities Neurological: Cranial nerves II-XII grossly intact, DTR 2+/4 Psych/Mental Status: Flat affect. Cognitive deficits/early dementia. Assessment & Plan Assessment/Plan (1) Generalized weakness: PLAN: This 61-year-old female was readmitted after 5 days of discharge with fall, left ankle twisting and right lower rib pain. 1. Acute debility with recent fall: Right ribs individually reviewed shows no demonstrated fracture. There is reporting of possible deformity of the right humeral surgical neck. Previous x-ray of 10/27/2021 shows mildly displaced fracture of right humeral neck. Patient also had left ankle x-ray shows diffuse soft tissue swelling with degenerative changes. Previous x-ray of left ankle on 12/22 showed similar picture overall x-ray shows patient has osteopenia, generalized degenerative changes. PT and OT and pain control. Patient had left ankle brace put him in the ED. Patient has wheeled walker at home. 12/25: Heart rate and blood pressure in normal range. Patient agreed for going to SNF. business banking relationship manager discussed with the plan of SNF. CKD stage IIIb: Mild improvement in creatinine from 1.44-1.32. Patient baseline creatinine runs around 1.0-1.25. Patient on Lasix 20 mg daily discontinued. She does not require it not helping her with creatinine clearance of 35 mill per minute #2 COPD-no exacerbation. Continue DuoNeb aerosol as needed. 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 Electronically Signed: Mulugeta Escoto MD at 23:56 EDT , Chest X-Ray 12/23/21 23:26 IMPRESSION: No acute cardiopulmonary abnormality. Electronically Signed: Mulugeta Ecsoto MD at 23:55 EDT , Ankle X-Ray 12/24/21 09:43 IMPRESSION: Degenerative changes. Diffuse soft tissue swelling. Electronically Signed: Margi Montaño MD at 10:39 EDT , Ribs w/Chest X-Ray 12/24/21 09:43 IMPRESSION: RIBS: Indeterminate deformity of the right proximal humerus concerning for an underlying fracture, recommend dedicated images of the humerus for further characterization. CHEST: No acute cardiopulmonary process. Charges/Coding Visit Charges Inpatient E&M: 45800 Subs Hosp L2
[2021-12-25 07:42] VITALS: BP 102/65; PULSE 78; RESP 14; TEMP 36.6; O2SAT 94
[2021-12-25] MEDS: Acetaminophen 325 MG Tablet 650 MG PO (07:46)
[2021-12-25] MEDS: Allopurinol 300 MG Tablet PO (07:46)
[2021-12-25 14:02] VITALS: BP 101/59; PULSE 92; RESP 15; TEMP 36.8; O2SAT 98
[2021-12-25 20:00] VITALS: BP 94/61; PULSE 79; RESP 16; TEMP 37.1; O2SAT 94
[2021-12-25] MEDS: Atorvastatin Calcium 10 MG Tablet PO (23:05)
[2021-12-26 02:20] VITALS: BP 97/66; PULSE 76; RESP 16; TEMP 36.6; O2SAT 94
[2021-12-26] MEDS: Benztropine Mesylate 0.5 MG TABLET PO ×3 (05:54→21:45)
[2021-12-26] MEDS: Gabapentin 100 MG Capsule PO (05:55)
--- NOTE | 2021-12-26 07:13 | PN.HOSP_ITS ---
Subjective Subjective Does not recall when she broke her right humerus. Objective Data Objective Data Vital Signs: Vital Signs Temp Pulse Resp BP Pulse Ox 36.6 C 76 16 97/66 94 12/26/21 02:20 12/26/21 02:20 12/26/21 02:20 12/26/21 02:20 12/26/21 02:20 Oxygen Flow Rate (L/min) 1 Oxygen Delivery Method Room Air Weight: 57 kg Body Mass Index (BMI) 22.9 Intake & Output: Intake and Output for Last 24 Hours 12/24/21 12/25/21 12/26/21 23:59 23:59 23:59 Intake Total 1520 / 1520 Output Total 200 / 200 Balance 1320 / 1320 Lab / Micro Data Result Diagrams: 12/23/21 23:25 12/25/21 06:00 Rhythm Strip Rhythm Strip: Sinus Rhythm Rate: 93 Ectopy: None Physical Exam Const alert and no apparent distress Resp normal respiratory effort, no retractions, no use of accessory muscles and clear to auscultation bilaterally Cardio regular rate, regular rhythm, S1 normal heart sound and S2 normal heart sound GI normal to inspection, nondistended, normoactive bowel sounds, soft to palpation, non-tender and non-distended Extremity Extremity Narrative: right arm in sleeve. left ankle air cast. Assessment & Plan Assessment/Plan (1) Generalized weakness: PLAN: This 61-year-old female was readmitted after 5 days of discharge with fall, left ankle twisting and right lower rib pain. 1. Acute debility with recent fall: * recurrent. was just discharged on 12/19 and discharged to home with [facility] at that time. * PT OT E+T * will need SNF in the short term. long-term, I would be concerned about the p atient returning home. * DC potentiating medications (gabapentin, 2. Right proximal humerus fracture * noted on 10/27/2021 * unclear onset * immobilize, sling * follow up with orthopaedics (has seen Dr. Roca in past for FNFx) * healing on xray on 12/26 * 25 OH d level from 12/12/21 55.1 3. CKD stage IIIb: * Mild improvement in creatinine from 1.44-1.32. * stable 4. Chronic conditions: * COPD-no exacerbation. Continue DuoNeb aerosol as needed. 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 VTE prophylaxis: not indicated as she is anticoagulated. Charges/Coding Visit Charges OBSV E&M: 96046 Initial observation care L2
--- NOTE | 2021-12-26 07:13 | PCM.PN.HOSP ---
Subjective Subjective Does not recall when she broke her right humerus. Objective Data Objective Data Vital Signs: Vital Signs Temp Pulse Resp BP Pulse Ox 36.6 C 76 16 97/66 94 12/26/21 02:20 12/26/21 02:20 12/26/21 02:20 12/26/21 02:20 12/26/21 02:20 Oxygen Flow Rate (L/min) 1 Oxygen Delivery Method Room Air Weight: 57 kg Body Mass Index (BMI) 22.9 Intake & Output: Intake and Output for Last 24 Hours 12/24/21 12/25/21 12/26/21 23:59 23:59 23:59 Intake Total 1520 / 1520 Output Total 200 / 200 Balance 1320 / 1320 Lab / Micro Data Result Diagrams: 12/23/21 23:25 12/25/21 06:00 Rhythm Strip Rhythm Strip: Sinus Rhythm Rate: 93 Ectopy: None Physical Exam Const alert and no apparent distress Resp normal respiratory effort, no retractions, no use of accessory muscles and clear to auscultation bilaterally Cardio regular rate, regular rhythm, S1 normal heart sound and S2 normal heart sound GI normal to inspection, nondistended, normoactive bowel sounds, soft to palpation, non-tender and non-distended Extremity Extremity Narrative: right arm in sleeve. left ankle air cast. Assessment & Plan Assessment/Plan (1) Generalized weakness: PLAN: This 61-year-old female was readmitted after 5 days of discharge with fall, left ankle twisting and right lower rib pain. 1. Acute debility with recent fall: recurrent. was just discharged on 12/19 and discharged to home with [facility] at that time. PT OT E+T will need SNF in the short term. long-term, I would be concerned about the patient returning home. DC potentiating medications (gabapentin, 2. Right proximal humerus fracture noted on 10/27/2021 unclear onset immobilize, sling follow up with orthopaedics (has seen Dr. Roca in past for FNFx) healing on xray on 12/26 25 OH d level from 12/12/21 55.1 3. CKD stage IIIb: Mild improvement in creatinine from 1.44-1.32. stable 4. Chronic conditions: COPD-no exacerbation. Continue DuoNeb aerosol as needed. 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 VTE prophylaxis: not indicated as she is anticoagulated. Charges/Coding Visit Charges OBSV E&M: 06043 Initial observation care L2
[2021-12-26 08:00] VITALS: BP 118/69; PULSE 72; RESP 18; TEMP 36.6; O2SAT 95
--- NOTE | 2021-12-26 08:10 | RAD_ITS ---
STUDY: X-RAY - RIGHT HUMERUS REASON FOR EXAM: Female, 61 years old. Follow-up of proximal humeral fracture. TECHNIQUE: 2 view(s) of the humerus. COMPARISON: 10/27/2021. FINDINGS: Stable osteopenia. Comminuted impacted fracture of the surgical neck of the right humerus shows increased callus formation. Again noted is marked arthrosis of the right glenohumeral joint and mild arthrosis of the right AC joint. There is no demonstrated soft tissue abnormality. RAD/Humerus min 2 Views IMPRESSION: Healing right proximal humeral fracture. No complicating Electronically Signed: Ricci Candelaria MD at 9:25 EDT ,
[2021-12-26 08:57] VITALS: O2SAT 93
[2021-12-26 09:57] VITALS: O2SAT 92
[2021-12-26] MEDS: Donepezil HCl 10 MG Tablet PO (10:25)
[2021-12-26] MEDS: Sertraline 100 MG Tablet 200 MG PO (10:25)
[2021-12-26] MEDS: ARIPiprazole 10 MG Tablet PO (10:25)
[2021-12-26] MEDS: Pantoprazole Sodium 40 MG Tablet PO (10:25)
[2021-12-26] MEDS: lamoTRIgine 150 MG Tablet PO ×2 (10:26→21:46)
[2021-12-26] MEDS: APIXABAN 5 MG TABLET PO ×2 (10:26→21:45)
--- NOTE | 2021-12-26 11:32 | CASEMGMT ---
Social Work Received referral from weekend RNCM that pt's son is requesting SNF placement at [facility]. Phone call to Maria Elena at [facility], they are not in network but if pt is coming salvage determiner they could request a one time contract. Phone call to pt son Aiden Fisher, who is pt's guardian with document on pt chart, and explained that [facility] is not in network. Aiden states pt will be short term only as Aiden is working on Assisted Living placement from skilled level of care. Aiden's second choice is [facility] and phone call to [facility] and they do have beds available. Referral faxed to [facility] and [facility] notified that pt will be short term and therefore looking into a different facility in network with insurance. Plan: [facility], pending acceptance and insurance NEVIN Bond
[2021-12-26] MEDS: Allopurinol 300 MG Tablet PO (12:37)
--- NOTE | 2021-12-26 15:59 | CHAPLAIN ---
Type of Pastoral Visit _x__ Initial Visit ___ Follow-up Visit ___ On-call Visit ___ General Patient Visit ___ Spiritual Assessment ___ Family Conference ___ Bereavement ___ Rapid Response ___ Code Blue ___ Other (describe below) Pastoral Care Referral From _x__ Patient ___ Family ___ Nurse ___ Physician ___ Wool Classer ___ Credentialing Assistant ___ Other (describe below) Sacrament/Intervention _x__ Active listening ___ Anointing ___ Yarsani ___ Bereavement ___ Communion ___ Morena exploration ___ ___ Life review _x__ Prayer ___ Reconciliation ___ Sacrament of Sick ___ Supportive presence ___ Wedding ___ Other (describe below) Pastoral Comments patient was resting but awakens easily to knock on door; pt has had falls recently and is in need of extra care; pt explains situation and acknowledges need for some decisions to be made; prayer and presence are welcomed
[2021-12-26 16:54] VITALS: BP 102/66; PULSE 72; RESP 18; TEMP 37.1; O2SAT 98
[2021-12-26 21:40] VITALS: BP 99/67; PULSE 76; RESP 16; TEMP 36.9; O2SAT 92
[2021-12-26] MEDS: Atorvastatin Calcium 10 MG Tablet PO (21:44)
[2021-12-27 05:04] VITALS: BP 108/67; PULSE 68; RESP 16; TEMP 36.5; O2SAT 98
[2021-12-27] MEDS: Benztropine Mesylate 0.5 MG TABLET PO ×2 (05:06→14:09)
--- NOTE | 2021-12-27 07:01 | PN.HOSP_ITS ---
Subjective Subjective Feels well. Anxious on input from insurance about placement. Objective Data Objective Data Vital Signs: Vital Signs Temp Pulse Resp BP Pulse Ox 36.5 C L 68 16 108/67 98 12/27/21 05:04 12/27/21 05:04 12/27/21 05:04 12/27/21 05:04 12/27/21 05:04 Oxygen Flow Rate (L/min) 1 Oxygen Delivery Method Room Air Weight: 57 kg Body Mass Index (BMI) 22.9 Intake & Output: Intake and Output for Last 24 Hours 12/25/21 12/26/21 12/27/21 23:59 23:59 23:59 Intake Total 1100 / 1100 Balance 1100 / 1100 Lab / Micro Data Result Diagrams: 12/23/21 23:25 12/25/21 06:00 Radiography Diagnostic Testing: Radiology Impression Humerus X-Ray 12/26/21 08:10 IMPRESSION: Healing right proximal humeral fracture. No complicating Electronically Signed: Ricci Candelaria MD at 9:25 EDT , Rhythm Strip Rhythm Strip: Sinus Rhythm Rate: 93 Ectopy: None Physical Exam Const alert and no apparent distress Resp normal respiratory effort, no retractions, no use of accessory muscles and clear to auscultation bilaterally Cardio regular rate, regular rhythm, S1 normal heart sound and S2 normal heart sound GI normal to inspection, nondistended, normoactive bowel sounds and soft to palpation Extremity Extremity Narrative: right arm in sling. aircast on left ankle. Assessment & Plan Assessment/Plan (1) Generalized weakness: PLAN: This 61-year-old female was readmitted after 5 days of discharge with fall, left ankle twisting and right lower rib pain. 1. Acute debility with recent fall: * recurrent. was just discharged on 12/19 and discharged to home with [facility] at that time. * PT OT E+T * will need SNF in the short term. long-term, I would be concerned about the patient returning home. * DC potentiating medications (gabapentin) 2. Right proximal humerus fracture * noted on 10/27/2021 * unclear onset * immobilize, sling, non-weight bearing. * follow up with orthopaedics (has seen Dr. Roca in past for FNFx) * healing on xray on 12/26 * 25 [place] d level from 12/12/21 55.1 3. CKD stage IIIb: * Mild improvement in creatinine from 1.44-1.32. * stable 4. Chronic conditions: * COPD-no exacerbation. Continue DuoNeb aerosol as needed. 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 VTE prophylaxis: not indicated as she is anticoagulated. Charges/Coding Visit Charges OBSV E&M: 09900 Subsequent observation care L2
--- NOTE | 2021-12-27 07:01 | PCM.PN.HOSP ---
Subjective Subjective Feels well. Anxious on input from insurance about placement. Objective Data Objective Data Vital Signs: Vital Signs Temp Pulse Resp BP Pulse Ox 36.5 C L 68 16 108/67 98 12/27/21 05:04 12/27/21 05:04 12/27/21 05:04 12/27/21 05:04 12/27/21 05:04 Oxygen Flow Rate (L/min) 1 Oxygen Delivery Method Room Air Weight: 57 kg Body Mass Index (BMI) 22.9 Intake & Output: Intake and Output for Last 24 Hours 12/25/21 12/26/21 12/27/21 23:59 23:59 23:59 Intake Total 1100 / 1100 Balance 1100 / 1100 Lab / Micro Data Result Diagrams: 12/23/21 23:25 12/25/21 06:00 Radiography Diagnostic Testing: Radiology Impression Humerus X-Ray 12/26/21 08:10 IMPRESSION: Healing right proximal humeral fracture. No complicating Electronically Signed: Ricci Candelaria MD at 9:25 EDT , Rhythm Strip Rhythm Strip: Sinus Rhythm Rate: 93 Ectopy: None Physical Exam Const alert and no apparent distress Resp normal respiratory effort, no retractions, no use of accessory muscles and clear to auscultation bilaterally Cardio regular rate, regular rhythm, S1 normal heart sound and S2 normal heart sound GI normal to inspection, nondistended, normoactive bowel sounds and soft to palpation Extremity Extremity Narrative: right arm in sling. aircast on left ankle. Assessment & Plan Assessment/Plan (1) Generalized weakness: PLAN: This 61-year-old female was readmitted after 5 days of discharge with fall, left ankle twisting and right lower rib pain. 1. Acute debility with recent fall: recurrent. was just discharged on 12/19 and discharged to home with [facility] at that time. PT OT E+T will need SNF in the short term. long-term, I would be concerned about the patient returning home. DC potentiating medications (gabapentin) 2. Right proximal humerus fracture noted on 10/27/2021 unclear onset immobilize, sling, non-weight bearing. follow up with orthopaedics (has seen Dr. Roca in past for FNFx) healing on xray on 12/26 25 [place] d level from 12/12/21 55.1 3. CKD stage IIIb: Mild improvement in creatinine from 1.44-1.32. stable 4. Chronic conditions: COPD-no exacerbation. Continue DuoNeb aerosol as needed. 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 VTE prophylaxis: not indicated as she is anticoagulated. Charges/Coding Visit Charges OBSV E&M: 34923 Subsequent observation care L2
[2021-12-27 08:05] VITALS: O2SAT 97
[2021-12-27] MEDS: APIXABAN 5 MG TABLET PO (09:23)
[2021-12-27] MEDS: ARIPiprazole 10 MG Tablet PO (09:24)
[2021-12-27] MEDS: Pantoprazole Sodium 40 MG Tablet PO (09:24)
[2021-12-27] MEDS: lamoTRIgine 150 MG Tablet PO (09:24)
[2021-12-27] MEDS: Donepezil HCl 10 MG Tablet PO (09:24)
[2021-12-27] MEDS: Sertraline 100 MG Tablet 200 MG PO (09:24)
[2021-12-27 09:49] VITALS: BP 100/68; PULSE 72; RESP 16; TEMP 36.9; O2SAT 97
--- NOTE | 2021-12-27 11:15 | CASEMGMT ---
Addendum entered by Breanna Bobby 12/27/21 14:12: Call placed to [facility] insurance and appointment scheduled for [facility] physician to call Dr. Palma between [phone] for peer to peer. Physician updated. NEVIN Esparza Original Note: Social Work SW received call from Patti at [facility] stating pt was denied SNF admission. Peer to Peer can be completed prior to 4:30 today by calling [phone] option 4. SHRUTHI informed Patti that since precert was submitted, there is new information on humerus fracture and weight bearing status. SHRUTHI inquired if insurance received this information if they would reconsider. Patti states after a determination is made, new information can only be given in Peer to Peer. Physician updated and plans to complete Peer to Peer. Information given. NEVIN Esparza
[2021-12-27] MEDS: Allopurinol 300 MG Tablet PO (13:54)
--- NOTE | 2021-12-27 14:14 | TREXTCAR_ITS ---
Diet 12/24/21 01:38 Diet: Regular - General Food consistency:: Regular Liquid Consistency:: Regular/Thin Routine Orders/Code Status Routine Lab Work: CBC and BMP Code Status: Full Code Wound(s) R posterior shoulder: Wound Type: Skin Tear R elbow: Wound Type: Abrasion L forearm: Wound Type: Skin Tear Therapies Weight Bearing: Non weight bearing Extremity Affected:: Right Upper (sling to RUE.) Problem/Diagnosis (1) Generalized weakness: Status: Acute Allergies/Procedures Done in Hospital Allergies No Known Allergies Allergy (Verified 12/23/21 22:26) Type of Care/Length of Stay Estimated LOS: Convalescent Care Less Than 30 days Type of Care Needed: Skilled Rehab Potential: Fair Prognosis: Fair Additional Orders/Day of Discharge Day of Discharge: 12/27/21 Discharge Plan Admission Admit Date/Time: 12/24/21 01:32 Primary Reason for Your Visit: Debility Attending Provider: Damir Palma Primary Care Provider: Hua Mosher Consulting Providers: Dillon Morgan ; Colby Chapman Discharge Orders/Prescriptions Prescriptions: Continued ondansetron HCl [Zofran] 4 mg tablet 4 mg PO Q6H PRN (Reason: Nausea) RF: 0 trazodone 100 mg tablet 100 mg PO QHS PRN PRN (Reason: Sleep) RF: 0 sertraline 100 MG tablet 200 mg PO DAILY RF: 0 lamotrigine 100 MG tablet 150 mg PO BID RF: 0 docusate sodium 100 MG capsule 100 mg PO BID PRN PRN (Reason: Constipation) RF: 0 albuterol sulfate 2.5 mg /3 mL (0.083 %) Solution For Nebulization 2.5 mg inhalation Q2H PRN PRN (Reason: Dyspnea, wheezing) Qty: 3 RF: 0 Anoro Ellipta 62.5-25 mcg/actuation blister with device 1 inh inhalation DAILY RF: 0 aripiprazole 10 mg tablet 10 mg PO DAILY RF: 0 omeprazole 40 mg capsule,delayed release(DR/EC) 40 mg PO DAILY RF: 0 acetaminophen 500 mg Tablet 1,000 mg PO BID PRN (Reason: Pain) RF: 0 allopurinol 300 mg tablet 300 mg PO DAILY@1200 RF: 0 Eliquis 5 mg Tablet 5 mg PO BID Qty: 60 RF: 0 atorvastatin 10 mg Tablet 10 mg PO QHS RF: 0 donepezil 10 mg Tablet 10 mg PO DAILY RF: 0 benztropine 0.5 mg Tablet 0.5 mg PO TID RF: 0 Discontinued furosemide 40 mg tablet 20 mg PO DAILY RF: 0 gabapentin 100 mg Tablet 100 mg PO TID RF: 0 Referrals / Follow Up: Hua Mosher MD [Primary Care Provider] - Within 2 Weeks Ricardo Roca DO [STAFF PHYSICIAN] - Within 2 Weeks (right humerus fracture) Disposition Disposition (needs filled in before D/C Order can be placed): Group Home Facility
--- NOTE | 2021-12-27 14:19 | PCM.DC.SUM ---
Providers Date of Admission: 12/24/21 Primary Care Physician: Dr. Hua Mosher MD Reason For Visit: ACUTE DEBILITY Diagnosis Discharge Diagnosis (1) Generalized weakness: Status: Acute Code(s): R53.1 - Weakness Medications at Discharge Home Medications docusate sodium 100 mg PO BID PRN PRN 07/09/19 lamotrigine 150 mg PO BID 07/09/19 sertraline 200 mg PO DAILY 07/09/19 albuterol sulfate 2.5 mg INHALATION Q2H PRN PRN #3 ml 03/19/21 ondansetron HCl 4 mg tablet 4 mg PO Q6H PRN 05/12/21 trazodone 100 mg tablet 100 mg PO QHS PRN PRN tab 05/12/21 Anoro Ellipta 1 inh INHALATION DAILY 05/18/21 aripiprazole 10 mg PO DAILY 05/18/21 omeprazole 40 mg PO DAILY 05/24/21 acetaminophen 1,000 mg PO BID PRN 06/01/21 allopurinol 300 mg PO DAILY@1200 06/01/21 Eliquis 5 mg PO BID #60 tab 06/04/21 atorvastatin 10 mg PO QHS 12/23/21 benztropine 0.5 mg PO TID 12/23/21 donepezil 10 mg PO DAILY 12/23/21 Hospital Course Operations None Procedures None Summary of Care Provided Minutes Spent on Discharge: 40 [facility] [id number] [place] [address] Progress Note - Hfxjuqrkrso20/24/22 0701MR#: [id number]:MARGARITA JOSHI [facility] #:[id number]: 1960 61From: Dmair Palma DOPCP:Dr. Hua Mosher MD Status:ADM INOLocation: [id number] Subjective Subjective Feels well. Anxious on input from insurance about placement. Objective Data Objective Data Vital Signs: Vital Signs Temp Pulse Resp BP Pulse Ox 36.5 C L 68 16 108/67 98 12/27/21 05:04 12/27/21 05:04 12/27/21 05:04 12/27/21 05:04 12/27/21 05:04 Oxygen Flow Rate (L/min) 1 Oxygen Delivery Method Room Air Weight: 57 kg Body Mass Index (BMI) 22.9 Intake & Output:Intake and Output for Last 24 Hours 12/25/21 12/26/21 12/27/21 23:59 23:59 23:59 Intake Total 1100 / 1100 Balance 1100 / 1100 Lab / Micro Data Result Diagrams: 12/23/21 23:25 document embedded image 12/25/21 06:00 document embedded image Radiography Diagnostic Testing:Radiology Impression Humerus X-Ray 12/26/21 08:10 IMPRESSION: Healing right proximal humeral fracture. No complicating Electronically Signed: Ricci Candelaria MD at 9:25 EDT , Rhythm Strip Rhythm Strip: Sinus Rhythm Rate: 93 Ectopy: None Physical Exam Const alert and no apparent distress Resp normal respiratory effort, no retractions, no use of accessory muscles and clear to auscultation bilaterally Cardio regular rate, regular rhythm, S1 normal heart sound and S2 normal heart sound GI normal to inspection, nondistended, normoactive bowel sounds and soft to palpation Extremity Extremity Narrative: right arm in sling. aircast on left ankle. Assessment & Plan Assessment/Plan (1) Generalized weakness: PLAN: This 61-year-old female was readmitted after 5 days of discharge with fall, left ankle twisting and right lower rib pain. 1. Acute debility with recent fall: recurrent. was just discharged on 12/19 and discharged to home with [facility] at that time. PT OT E+T will need SNF in the short term. long-term, I would be concerned about the patient returning home. DC potentiating medications (gabapentin) 2. Right proximal humerus fracture noted on 10/27/2021 unclear onset immobilize, sling, non-weight bearing. follow up with orthopaedics (has seen Dr. Roca in past for FNFx) healing on xray on 12/26 25 [place] d level from 12/12/21 55.1 3. CKD stage IIIb: Mild improvement in creatinine from 1.44-1.32. stable 4. Chronic conditions: COPD-no exacerbation. Continue DuoNeb aerosol as needed. 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 Mg. Explained concerns that I have for the patient returning home particular with her frequent hospitalizations and falls and her limitations now with this humerus fracture though acknowledging that the humerus fracture is not a new entity and appears to be healing. Dr. Mg agreed to patient going to a residential facility but want to emphasize that the patient cannot decline therapy. I went and informed patient that she can go to a residential facility and that she absolutely must work with therapy while she was there otherwise her insurance will cut her off. Patient agreed. Weight / BMI Weight Weight: 57 kg Body Mass Index (BMI) 22.9 ABG / Lab / Microbiology Data Result Diagrams: 12/23/21 23:25 12/25/21 06:00 Meaningful Use Info Meaningful Use Diagnoses (Choose all that apply): None applicable Discharge Plan Admission Admit Date/Time: 12/24/21 01:32 Primary Reason for Your Visit: Debility Attending Provider: Damir Palma Primary Care Provider: Hua Mosher Consulting Providers: Dillon Morgan ; Colby Chapman Discharge Orders/Prescriptions Prescriptions: Continued ondansetron HCl [Zofran] 4 mg tablet 4 mg PO Q6H PRN (Reason: Nausea) RF: 0 trazodone 100 mg tablet 100 mg PO QHS PRN PRN (Reason: Sleep) RF: 0 sertraline 100 MG tablet 200 mg PO DAILY RF: 0 lamotrigine 100 MG tablet 150 mg PO BID RF: 0 docusate sodium 100 MG capsule 100 mg PO BID PRN PRN (Reason: Constipation) RF: 0 albuterol sulfate 2.5 mg /3 mL (0.083 %) Solution For Nebulization 2.5 mg inhalation Q2H PRN PRN (Reason: Dyspnea, wheezing) Qty: 3 RF: 0 Anoro Ellipta 62.5-25 mcg/actuation blister with device 1 inh inhalation DAILY RF: 0 aripiprazole 10 mg tablet 10 mg PO DAILY RF: 0 omeprazole 40 mg capsule,delayed release(DR/EC) 40 mg PO DAILY RF: 0 acetaminophen 500 mg Tablet 1,000 mg PO BID PRN (Reason: Pain) RF: 0 allopurinol 300 mg tablet 300 mg PO DAILY@1200 RF: 0 Eliquis 5 mg Tablet 5 mg PO BID Qty: 60 RF: 0 atorvastatin 10 mg Tablet 10 mg PO QHS RF: 0 donepezil 10 mg Tablet 10 mg PO DAILY RF: 0 benztropine 0.5 mg Tablet 0.5 mg PO TID RF: 0 Discontinued furosemide 40 mg tablet 20 mg PO DAILY RF: 0 gabapentin 100 mg Tablet 100 mg PO TID RF: 0 Referrals / Follow Up: Hua Mosher MD [Primary Care Provider] - Within 2 Weeks Ricardo Roca DO [STAFF PHYSICIAN] - Within 2 Weeks (right humerus fracture) Disposition Disposition (needs filled in before D/C Order can be placed): [facility] Facility Charges/Coding Visit Charges OBSV E&M: 21435 Observation care discharge
--- NOTE | 2021-12-27 15:16 | CASEMGMT ---
Social Work Phone call from Mercedes at [facility] and precert has been obtained. Physician notified and can discharge today. PASRR completed in [employer] system and faxed along with orders to [facility]. Phone call to son Aiden and updated that precert has been obtained and pt can discharge today. Pt notified and agreeable to discharge plan. Nursing made aware and covid test requested. Pt can discharge when test results are returned negative. NEVIN Esparza
[2021-12-27 16:42] VITALS: BP 102/64; PULSE 74; RESP 18; TEMP 37.2; O2SAT 97
[2021-12-27 17:10] VITALS: BP 110/67; PULSE 70; RESP 18; TEMP 37; O2SAT 98
== END 2021-12-27 20:25 ==
LOC: ED 12-24 00:46 → MS3 12-24 01:42
PROVIDERS: Internal Medicine; Admitting Provider Internal Medicine; Emergency Provider Emergency Medicine; PCP Family Medicine
DX: R53.1 Weakness (principal); J43.9 Emphysema, unspecified; F31.9 Bipolar disorder, unspecified; E11.22 Type 2 diabetes mellitus with diabetic chronic kidney disease; E11.42 Type 2 diabetes mellitus with diabetic polyneuropathy; N18.32 Chronic kidney disease, stage 3b; I12.9 Hypertensive chronic kidney disease with stage 1 through stage 4 chronic kidney disease, or unspecified chronic kidney disease; E78.5 Hyperlipidemia, unspecified; M79.7 Fibromyalgia; G89.29 Other chronic pain; R53.81 Other malaise; Z79.01 Long term (current) use of anticoagulants; F17.210 Nicotine dependence, cigarettes, uncomplicated; R62.7 Adult failure to thrive; K21.9 Gastro-esophageal reflux disease without esophagitis; Z79.899 Other long term (current) drug therapy; M19.90 Unspecified osteoarthritis, unspecified site; Z99.81 Dependence on supplemental oxygen; Z86.711 Personal history of pulmonary embolism; Z86.718 Personal history of other venous thrombosis and embolism; I25.2 Old myocardial infarction; S42.201D Unspecified fracture of upper end of right humerus, subsequent encounter for fracture with routine healing; X58.XXXD Exposure to other specified factors, subsequent encounter
CPT/HCPCS: 36415; 70450; 71045; 71101; 73060; 73610; 80048; 80053; 81001; 84484; 85025; 87426; 93005; 96360; 96361; 97110; 97116; 97161; 97165; 97530; 99218; 99285; 99406; J7120; P9612; A4216; G0378

== ENCOUNTER 2022-03-10 22:40 | Emergency (ER) | payer MEDICARE, MEDICAID, SELFPAY ==
[2022-03-10 22:41] VITALS: BP 120/75; PULSE 90; RESP 15; TEMP 35.7; O2SAT 97; BMI 23.8
--- NOTE | 2022-03-10 23:08 | CT_ITS ---
STUDY: CT BRAIN WITHOUT CONTRAST REASON FOR EXAM: Female, 62 years old. fall on thinners RADIATION DOSAGE (If Supplied By Facility): CTDIvol = ( 44.99 ) mGy, DLP = ( 782.05 ) mGycm TECHNIQUE: Transaxial CT imaging of the brain was performed without administration of intravenous contrast material. Individualized dose optimization techniques were used for this CT. COMPARISON: 12/08/2021 FINDINGS: Normal soft tissue structures. Normal calvarium. There is mild cerebral atrophy with widening of the extra-axial spaces and ventricular dilatation. There are areas of decreased attenuation within the white matter tracts of the supratentorial brain, consistent with microvascular disease changes. Normal basal ganglia and thalami. Normal brainstem. Normal cerebellum. There is no intracranial hemorrhage. There are no findings of an acute ischemic infarction. Normal visualized paranasal sinuses. CT/Brain/Head without Contrast IMPRESSION: Chronic involutional changes of the brain. Electronically Signed: Ramon Falcon DO at 23:44 EDT ,
[2022-03-10] MEDS: Diphth,Pertuss(Acell),Tet Vac 0.5 ML Vial IM (23:37)
--- NOTE | 2022-03-10 23:37 | EDS_ITS ---
HPI History of Present Illness Chief Complaint: Fall Narrative Narrative: Patient is a 62-year-old female with past medical history of diabetes as well as previous DVT currently on blood thinners. She was just discharged from a retirement secondary to generalized weakness and failure to thrive and was at home today trying to put away clothes. She states she felt her legs were slightly weak and she fell forward from a standing position cutting her right and left arm on the dresser. She denies hitting her head or any loss of consciousness. She states she has been able to ambulate and move all extremities since the fall. Family had concerned that the wounds may need sutures and secondary to this brought her in for evaluation. [facility] Medical History Acute respiratory failure with hypoxia and hypercapnia Adult failure to thrive Anemia Anxiety Arthritis Back pain Cardiology follow-up encounter Cervical radiculitis Chest pain Chronic anticoagulation Chronic back pain CKD (chronic kidney disease) stage 3, GFR 30-59 ml/min Closed fracture of left hip COPD (chronic obstructive pulmonary disease) CPAP (continuous positive airway pressure) dependence Depression Diabetes Diabetes mellitus, type II Diverticulosis Elevated troponin Emphysema, unspecified Esophageal stenosis Fibromyalgia Former smoker Gallbladder sludge Gastric reflux Gastro-esophageal reflux disease without esophagitis History of diabetes mellitus History of echocardiogram History of hiatal hernia History of pain when walking History of renal disease History of shoulder fracture History of stress test Hyperlipidemia Hypertension Inability to perform activities of daily living Injury of back Migraine headache Nicotine dependence, cigarettes, uncomplicated Nicotine dependence, cigarettes, uncomplicated Normal colonoscopy On home oxygen therapy LATA (obstructive sleep apnea) Peripheral neuropathy Pulmonary embolism Shortness of breath on exertion Sleep apnea Smoker Smoking greater than 30 pack years Stage 2 moderate COPD by GOLD classification Status post closed fracture of left hip Thrombocytopenia Tobacco use Type 2 LA (myocardial infarction) Walker as ambulation aid Wears glasses Wears partial dentures Home Medications docusate sodium 100 mg capsule 100 mg PO BID PRN PRN Constipation 07/09/19 [History Last Taken 06/01/21] lamotrigine 100 mg tablet 150 mg PO BID depression 07/09/19 [History Last Taken 12/23/21] sertraline 100 mg tablet 200 mg PO DAILY depression 07/09/19 [History Last Taken 12/23/21] albuterol sulfate 2.5 mg/3 mL (0.083 %) solution for nebulization 2.5 mg (3 mL) inhalation Q2H PRN PRN Dyspnea, wheezing #3 mL 03/19/21 [Rx Last Taken 05/23/21] ondansetron HCl 4 mg tablet (Zofran) 4 mg PO Q6H PRN Nausea 05/12/21 [History Last Taken 06/01/21] trazodone 100 mg tablet 100 mg PO QHS PRN PRN Sleep 05/12/21 [History Last Taken 05/31/21] aripiprazole 10 mg tablet 10 mg PO DAILY Check with primary doctor 05/18/21 [History Last Taken 12/23/21] umeclidinium 62.5 mcg-vilanterol 25 mcg/actuation powdr for inhalation (Anoro Ellipta) 1 inh inhalation DAILY copd 05/18/21 [History Last Taken 12/23/21] omeprazole 40 mg capsule,delayed release 40 mg PO DAILY GERD 05/24/21 [History Last Taken 12/23/21] acetaminophen 500 mg tablet 1,000 mg PO BID PRN Pain 06/01/21 [History Last Taken 06/01/21] allopurinol 300 mg tablet 300 mg PO DAILY@1200 GOUT 06/01/21 [History Last Taken 06/01/21] apixaban 5 mg tablet (Eliquis) 5 mg PO BID #60 tabs 06/04/21 [Rx Last Taken 12/23/21] atorvastatin 10 mg tablet 10 mg PO QHS cholesterol 12/23/21 [History Last Taken 12/22/21] benztropine 0.5 mg tablet 0.5 mg PO TID tremors 12/23/21 [History Last Taken 12/23/21] donepezil 10 mg tablet 10 mg PO DAILY memory 12/23/21 [History Last Taken 12/23/21] Allergy/AdvReac Type Severity Reaction Status Date / Time No Known Allergies Allergy Verified 03/10/22 22:41 Family History Mother Hypertension Father Hypertension Diabetes Surgical History Cervical vertebral fusion history EGD with ph probe (~12/09/17) History of colonoscopy (~12/05/17) History of repair of hiatal hernia History of shoulder surgery History of tubal ligation Hx of cholecystectomy Hx of hernia repair Hx of surgical procedure Social History household members: none number of children: 2 other: Currently lives alone and uses a wheeled walker to ambulate Smoking Status: Current every day smoker tobacco type: cigarettes alcohol intake: never substance use type: does not use caffeine: No what type of physical activity do you participate in: none additional social history: Brody, her son is reported to be her guardian ROS ROS ED Constitutional Constitutional ED: Denies chills or fever(s) Eyes Eyes: Denies change in vision ENT ENT ED: Denies sore throat Cardiovascular Cardiovascular: Denies chest pain Respiratory/Chest Respiratory/Chest: Denies cough or dyspnea Gastrointestinal Gastrointestinal: Denies abdominal pain, diarrhea, nausea or vomiting Genitourinary Genitourinary ED: Denies dysuria Musculoskeletal Musculoskeletal: Denies myalgias or neck pain Integumentary Reports Abrasions; Denies rash Neurologic Neurologic: Denies headache(s) Hematologic/Lymphatic Hematologic/Lymphatic: Reports easy bleeding and easy bruising EXAM Physical Exam Const Vital Signs: 03/10/22 22:41 Temperature 96.3 F L Temperature Source Temporal Pulse Rate 90 Respiratory Rate 15 Blood Pressure 120/75 Blood Pressure Mean 90 Pulse Ox 97 Oxygen Delivery Method Room Air Positive well nourished and well developed General Appearance ED: well developed HEENT HEENT Narrative: No signs of depressed or basilar skull fracture Eyes PERRL and EOMs intact bilaterally Neck supple Neck Narrative: No bony deformity or step-off of the cervical spine no midline pain on palpation Chest Wall palpation of chest normal Resp normal respiratory effort and clear to auscultation bilaterally Cardio regular rate and regular rhythm GI normal to inspection, nondistended, normoactive bowel sounds, non-tender and non-distended Auscultation: normoactive bowel sounds Palpation: soft Back/Spine Back/Spine Narrative: No bony deformity or step-off of the thoracic or lumbar spine Extremity Extremity Narrative: Patient has a skin tear to the volar aspect of the left mid forearm as well as a skin tear present along the dorsal lateral aspect of the right mid humerus. There is no active bleeding noted no foreign body no secondary changes to suggest infection. Pelvis is stable there is no external rotation or shortening of either lower extremity. Patient can move all extremities at baseline Neuro oriented x3 and CN's II-XII intact bilaterally Sensorium / Orientation: alert Psych mental status grossly normal Skin no rashes or lesions noted Skin Narrative: Skin tears to the left and right arm as documented above MDM MDM MDM Narrative Medical decision making narrative: Patient presented to the ER with a mechanical fall and therefore I felt no need for cardiac or syncope work-up. She had no signs of head injury but is on Eliquis and secondary to this I elected perform a head CT. This revealed normal age-related changes without acute skull fracture or brain. The patient did not have any bony pain and was able to move all extremities without difficulty so I felt no need for x-ray. Secondary to the skin tear her tetanus status was updated. Patient had the wound cleaned with chlorhexidine. Steri-Strips were then applied to the skin tears of the left and right arm to bring the wound edges together good approximation. Following this the patient had a nonstick gauze pad placed over top as well as Curlex gauze. At this time she has no signs or reported head injury based on CT scan by physical exam no underlying bony trauma and no secondary soft tissue infections from the skin tear which have been closed and therefore she is safe for discharge. Radiography Diagnostic Testing: Clinical Impression(s) from Imaging Studies Brain CT 03/10/22 23:08 IMPRESSION: Chronic involutional changes of the brain. Electronically Signed: Ramon Falcon DO at 23:44 EDT Reading Location ID and State: [address] [place] [address] Tel , Service support , Discharge Plan Triage Chief Complaint: Fall ED Provider: Florin Amor Dx/Rx/DC Orders Clinical Impression: Accidental fall, Current use of care home anticoagulation, Skin tear Instructions: ED Skin Avulsion, ED Fall Prevention Prescriptions: No Action ondansetron HCl [Zofran] 4 mg tablet 4 mg PO Q6H PRN (Reason: Nausea) trazodone 100 mg tablet 100 mg PO QHS PRN PRN (Reason: Sleep) Label Comments: sleep sertraline 100 MG tablet 200 mg PO DAILY lamotrigine 100 MG tablet 150 mg PO BID docusate sodium 100 MG capsule 100 mg PO BID PRN PRN (Reason: Constipation) albuterol sulfate 2.5 mg /3 mL (0.083 %) Solution For Nebulization 2.5 mg inhalation Q2H PRN PRN (Reason: Dyspnea, wheezing) Qty: 3 0RF Anoro Ellipta 62.5-25 mcg/actuation blister with device 1 inh inhalation DAILY aripiprazole 10 mg tablet 10 mg PO DAILY omeprazole 40 mg capsule,delayed release(DR/EC) 40 mg PO DAILY acetaminophen 500 mg Tablet 1,000 mg PO BID PRN (Reason: Pain) allopurinol 300 mg tablet 300 mg PO DAILY@1200 Eliquis 5 mg Tablet 5 mg PO BID Qty: 60 0RF atorvastatin 10 mg Tablet 10 mg PO QHS donepezil 10 mg Tablet 10 mg PO DAILY benztropine 0.5 mg Tablet 0.5 mg PO TID Primary Care Provider: Hua Mosher Referrals: Hua Mosher MD [Primary Care Provider] - Activity Restrictions/Additional Instructions: Please clean your wounds with soap and water and apply a secondary wrap over top to Steri-Strips as needed. The Steri-Strips should fall off in 10 to 14 days. If you notice any surrounding redness or streaking please return for repeat evaluation Disposition Disposition: Home, Self Care
== END 2022-03-11 00:40 | disposition home or self-care (01) ==
PROVIDERS: Emergency Provider Emergency Medicine; PCP Family Medicine; Visit Provider Emergency Medicine
DX: S51.812A Laceration without foreign body of left forearm, initial encounter (principal); J44.9 Chronic obstructive pulmonary disease, unspecified; E11.22 Type 2 diabetes mellitus with diabetic chronic kidney disease; E11.40 Type 2 diabetes mellitus with diabetic neuropathy, unspecified; N18.30 Chronic kidney disease, stage 3 unspecified; F41.9 Anxiety disorder, unspecified; M19.90 Unspecified osteoarthritis, unspecified site; G89.29 Other chronic pain; F32.A Depression, unspecified; M79.7 Fibromyalgia; K21.9 Gastro-esophageal reflux disease without esophagitis; E78.5 Hyperlipidemia, unspecified; I12.9 Hypertensive chronic kidney disease with stage 1 through stage 4 chronic kidney disease, or unspecified chronic kidney disease; G47.33 Obstructive sleep apnea (adult) (pediatric); Z86.711 Personal history of pulmonary embolism; Z79.01 Long term (current) use of anticoagulants; Z79.899 Other long term (current) drug therapy; F17.210 Nicotine dependence, cigarettes, uncomplicated; S41.111A Laceration without foreign body of right upper arm, initial encounter; W19.XXXA Unspecified fall, initial encounter; Y92.009 Unspecified place in unspecified non-institutional (private) residence as the place of occurrence of the external cause; Z23 Encounter for immunization
CPT/HCPCS: 70450; 90471; 90715; 99282

== ENCOUNTER → 2022-03-16 | Outpatient (CLI) | payer MEDICARE, MEDICAID, SELFPAY ==
[2022-03-16 15:00] LABS: Absolute Lymphocyte Count 2.01 X10^3/uL (0.83-4.51); Absolute Neutrophil Count 5.2 X10^3/uL (2.0-7.7); Basophil# 0.03 X10^3/uL; Basophil% 0.4 % (0-1); Eosinophils% 1.3 % (0-5); Hematocrit 41.8 % (37-47); Hemoglobin 12.9 g/dL (12.0-15.0); Lymphocyte # 2.01 X10^3/ul (0.83-4.51); Lymphocyte % 25.3 % (19-41); Mean Corp Hgb Conc 30.9 g/dL (32-36); Mean Corpuscular Hgb 31.6 pg (27.0-32.0); Mean Corpuscular Volume 102.5 fL (81-99); Monocyte# 0.59 X10^3/uL; Monocyte% 7.4 % (0-10); NRBC Flagged by Analyzer 0 % (0-5); Neutrophil # 5.19 X10^3/uL (2.7-7.7); Neutrophil % 65.2 % (47-70); Platelet Count 233 K/mm3 (150-450); RBC Distribution Width CV 14.6 % (11.6-14.6); RBC Distribution Width SD 55.4 fl (35.1-43.9); RET-HE 34.1 pg (30-35); Red Blood Count 4.08 M/mm3 (4.2-5.4); Reticulocyte Count 1.03 % (0.5-1.5)
[2022-03-16 15:19] LABS: Vitamin B12 364 pg/mL (211-911); Vitamin D,25 Hydroxy 66.8 ng/mL
[2022-03-16 15:25] LABS: ALB/GLOB Ratio 0.9 RATIO (0.9-2.4); AST(SGOT) 21 U/L (15-37); Alanine Aminotransfer ALT/SGPT 23 U/L (13-56); Albumin, Serum 3.6 g/dL (3.2-5.0); Alkaline Phosphatase 101 U/L (45-117); Anion Gap 5 (5-15); BUN 21 mg/dL (7-18); BUN/Creat Ratio 16.5 RATIO (10-20); Chloride 107 mmol/L (98-107); Creatinine, Serum 1.27 mg/dL (0.55-1.02); EST Glomerular Filtration Rate 45 mL/min (>60); Est Glom Filt Rate - Afr Amer 55 mL/min (>60); Ferritin 336 ng/mL (8-252); Globulin 3.9 g/dL (2.2-4.2); Glucose 74 mg/dL (74-106); Iron 89 ug/dL (50-170); Iron Binding Capacity,Total 287 ug/dL (250-450); Potassium 3.8 mmol/L (3.5-5.1); Protein, Total 7.5 g/dL (6.4-8.2); Sodium Level 141 mmol/L (136-145); Thyroid Stim Hormone (TSH) 0.74 uIU/mL (0.358-3.74)
== END | disposition home or self-care (01) ==
LOC: MTLAB 12:49
PROVIDERS: PCP Family Medicine; Referring Provider Family Medicine; Visit Provider Family Medicine
DX: D64.9 Anemia, unspecified (principal); E11.9 Type 2 diabetes mellitus without complications; E55.9 Vitamin D deficiency, unspecified
CPT/HCPCS: 36415; 80053; 82306; 82607; 82728; 83540; 83550; 84443; 85025; 85045

== ENCOUNTER 2022-06-13 07:43 | Emergency (ER) | payer MEDICARE, MEDICAID, SELFPAY ==
[2022-06-13 07:44] VITALS: BP 127/93; PULSE 76; RESP 15; TEMP 35.9; O2SAT 96; BMI 25.6
--- NOTE | 2022-06-13 08:03 | CT_ITS ---
STUDY: CT BRAIN WITHOUT CONTRAST REASON FOR EXAM: Female, 62 years old. Trauma RADIATION DOSAGE (If Supplied By Facility): CTDIvol = ( 44.99 ) mGy, DLP = ( 748.30 ) mGycm TECHNIQUE: Transaxial CT imaging of the brain was performed without administration of intravenous contrast material. Individualized dose optimization techniques were used for this CT. COMPARISON: Comparison is made with prior study dated 03/10/2022. FINDINGS: Normal soft tissue structures. Normal calvarium. Normal size ventricles and extra-axial spaces for the patient''s age. Normal white matter tracts of the cerebral hemispheres. Normal basal ganglia and thalami. Normal brainstem. Normal cerebellum. There is no intracranial hemorrhage. There are no findings of an acute ischemic infarction. Normal visualized paranasal sinuses. CT/Brain/Head without Contrast IMPRESSION: Normal unenhanced CT scan of the brain. Electronically Signed: Roger Barker MD at 9:53 EST ,
--- NOTE | 2022-06-13 08:03 | CT_ITS ---
STUDY: CT CERVICAL SPINE WITHOUT CONTRAST REASON FOR EXAM: Female, 62 years old. Cervical injury due to a fall. RADIATION DOSAGE (If Supplied By Facility): CTDIvol = ( 12.44 ) mGy, DLP = ( 213.89 ) mGycm TECHNIQUE: High resolution transaxial imaging was performed without contrast material. Sagittal and coronal images were reconstructed. Individualized dose optimization techniques were used for this CT. COMPARISON: Comparison is made with prior study dated 03/06/2021. FINDINGS: Normal craniovertebral junction. Normal anterior atlantoaxial articulation. Normal odontoid process. Normal cervical lordosis. Normal vertebral bodies and posterior osseous elements. C2-3: Normal endplates. Normal disc height and morphology. Normal central canal and intervertebral neuroforamina. C3-4: The patient is status post anterior fusion at the C3-C4 level with loss of the disc space. There is evidence of facet joint osteoarthritis and hypertrophy on the right side. Uncovertebral arthrosis. Mild degree of right neural foraminal stenosis. C4-5: Facet joint osteoarthritis and hypertrophy. Uncovertebral arthrosis. Mild to moderate degree of bilateral neural foraminal stenosis. C5-6: Marked degree of disc space narrowing. Spondylosis. Uncovertebral arthrosis. No significant stenosis seen. C6-7: The patient is status post anterior fusion with loss of the disc space. C7-T1: Normal endplates. Normal disc height and morphology. Normal central canal and intervertebral neuroforamina. Normal visualized soft tissue structures. CT/Spine Cervical without Contras IMPRESSION: Multilevel degenerative changes, as described above. Electronically Signed: Roger Barker MD at 10:02 [facility] ,
--- NOTE | 2022-06-13 08:04 | EKG12_ITS ---
Test Reason : FALL Blood Pressure : / mmHG Vent. Rate : 076 BPM Atrial Rate : 076 BPM P-R Int : 184 ms QRS Dur : 094 ms QT Int : 446 ms P-R-T Axes : 068 011 040 degrees QTc Int : 501 ms Normal sinus rhythm Prolonged QT Abnormal ECG Confirmed by LE BE, BON ([id number]), deputy editor in chief ROSA ROSALES ([id number]) on 06/14/2022 11:11:43 AM Referred By: Confirmed By:BON LUJAN MD
--- NOTE | 2022-06-13 08:05 | ED.VIS.FALL ---
HPI HPI - Fall History of Present Illness Chief Complaint: Fall Narrative Narrative: Patient presents after a fall, apparently she is at an assisted living and she has been falling quite a bit recently, today she was found in the hallway I would of her wheelchair as she had fallen on the ground. She has ambiguous recollection of the event, she tells me she fell out of bed and does not remember being in a wheelchair. Apparently she has been more confused recently and chronically. I cannot get a history or review of systems from her. [facility] Medical History Acute respiratory failure with hypoxia and hypercapnia Adult failure to thrive Anemia Anxiety Arthritis Back pain Cardiology follow-up encounter Cervical radiculitis Chest pain Chronic anticoagulation Chronic back pain CKD (chronic kidney disease) stage 3, GFR 30-59 ml/min Closed fracture of left hip COPD (chronic obstructive pulmonary disease) CPAP (continuous positive airway pressure) dependence Depression Diabetes Diabetes mellitus, type II Diverticulosis Elevated troponin Emphysema, unspecified Esophageal stenosis Fibromyalgia Former smoker Gallbladder sludge Gastric reflux Gastro-esophageal reflux disease without esophagitis History of diabetes mellitus History of echocardiogram History of hiatal hernia History of pain when walking History of renal disease History of shoulder fracture History of stress test Hyperlipidemia Hypertension Inability to perform activities of daily living Injury of back Migraine headache Nicotine dependence, cigarettes, uncomplicated Nicotine dependence, cigarettes, uncomplicated Normal colonoscopy On home oxygen therapy LATA (obstructive sleep apnea) Peripheral neuropathy Pulmonary embolism Shortness of breath on exertion Sleep apnea Smoker Smoking greater than 30 pack years Stage 2 moderate COPD by GOLD classification Status post closed fracture of left hip Thrombocytopenia Tobacco use Type 2 NE (myocardial infarction) Walker as ambulation aid Wears glasses Wears partial dentures Home Medications lamotrigine 100 mg tablet 200 mg PO BID depression 07/09/19 [History Last Taken 12/23/21] sertraline 100 mg tablet 200 mg PO DAILY depression 07/09/19 [History Last Taken 12/23/21] albuterol sulfate 2.5 mg/3 mL (0.083 %) solution for nebulization 2.5 mg (3 mL) inhalation Q2H PRN PRN Dyspnea, wheezing #3 mL 03/19/21 [Rx Last Taken 05/23/21] ondansetron HCl 4 mg tablet (Zofran) 4 mg PO Q6H PRN Nausea 05/12/21 [History Last Taken 06/01/21] trazodone 100 mg tablet 100 mg PO QHS 05/12/21 [History Last Taken 05/31/21] aripiprazole 10 mg tablet 10 mg PO DAILY Check with primary doctor 05/18/21 [History Last Taken 12/23/21] umeclidinium 62.5 mcg-vilanterol 25 mcg/actuation powdr for inhalation (Anoro Ellipta) 1 inh inhalation DAILY copd 05/18/21 [History Last Taken 12/23/21] omeprazole 40 mg capsule,delayed release 40 mg PO DAILY GERD 05/24/21 [History Last Taken 12/23/21] acetaminophen 500 mg tablet 1,000 mg PO BID PRN Pain 06/01/21 [History Last Taken 06/01/21] allopurinol 300 mg tablet 300 mg PO DAILY@1200 GOUT 06/01/21 [History Last Taken 06/01/21] apixaban 5 mg tablet (Eliquis) 5 mg PO BID #60 tabs 06/04/21 [Rx Last Taken 12/23/21] atorvastatin 10 mg tablet 10 mg PO QHS cholesterol 12/23/21 [History Last Taken 12/22/21] benztropine 0.5 mg tablet 0.5 mg PO TID tremors 12/23/21 [History Last Taken 12/23/21] donepezil 10 mg tablet 10 mg PO DAILY memory 12/23/21 [History Last Taken 12/23/21] cyanocobalamin (vitamin B-12) 1,000 mcg/mL injection solution 1,000 mcg IM QMONTH 06/13/22 [History Last Taken Unknown] docusate sodium 100 mg capsule (Stool Softener) 100 mg PO DAILY 06/13/22 [History Last Taken Unknown] ferrous sulfate 325 mg (65 mg iron) tablet 325 mg PO DAILY 06/13/22 [History Last Taken Unknown] folic acid 1 mg tablet 1 mg PO DAILY 06/13/22 [History Last Taken Unknown] furosemide 40 mg tablet 40 mg PO DAILY 06/13/22 [History Last Taken Unknown] gabapentin 100 mg capsule 100 mg PO TID 06/13/22 [History Last Taken Unknown] magnesium oxide 400 mg (241.3 mg magnesium) tablet 400 mg PO BID 06/13/22 [History Last Taken Unknown] meloxicam 7.5 mg tablet 7.5 mg PO DAILY 06/13/22 [History Last Taken Unknown] potassium chloride 20 mEq tablet,extended release(part/cryst) 20 meq PO BID 06/13/22 [History Last Taken Unknown] Allergy/AdvReac Type Severity Reaction Status Date / Time No Known Allergies Allergy Verified 03/10/22 22:41 Family History Mother Hypertension Father Hypertension Diabetes Surgical History Cervical vertebral fusion history EGD with ph probe (~12/09/17) History of colonoscopy (~12/05/17) History of repair of hiatal hernia History of shoulder surgery History of tubal ligation Hx of cholecystectomy Hx of hernia repair Hx of surgical procedure Social History household members: none number of children: 2 other: Currently lives alone and uses a wheeled walker to ambulate Smoking Status: Current every day smoker tobacco type: cigarettes alcohol intake: never substance use type: does not use caffeine: No what type of physical activity do you participate in: none additional social history: Brody, her son is reported to be her guardian ROS ROS ED Review of Systems ROS Unobtainable: due to mental condition and due to mental status EXAM Physical Exam Narrative Exam Narrative: Physical exam General: Patient appears relatively comfortable in the room. She does not appear in any distress. She is pleasantly demented. Head: Normocephalic, Atraumatic Eyes: Conjunctiva not pale ENT: Nasal bridge abrasion. No nasal septal hematoma no active bleeding. Normal bite no dental injury. Neck: Supple, Nontender, No lymphadenopathy. No C-spine tenderness Cardiovascular: Regular rate, Regular rhythm Respiratory: No distress, CTA bilaterally Abdomen: Soft, Nontender, Nondistended Back: Nontender, Normal Inspection. Negative for: CVA tenderness Extremities: Nontender, No edema. No signs of trauma. She does have some pain when I move her right hip. Skin: Normal color, No rash Neurological: Alert, she is oriented to person only. Normal Strength, Normal Sensation Const Vital Signs: 06/13/22 07:44 06/13/22 08:07 06/13/22 09:33 Temperature 96.7 F L Temperature Source Temporal Pulse Rate 76 69 Respiratory Rate 15 13 Respiratory Effort Normal Non-Labored Respiratory Depth Normal Respiratory Pattern Normal Blood Pressure 127/93 H 124/69 H Blood Pressure Mean 104 87 Pulse Ox 96 99 100 Oxygen Delivery Method Room Air Room Air Room Air MDM MDM MDM Narrative Medical decision making narrative: Patient's work-up is normal. I talked to the daughter who is okay taking her back to the assisted living they will however try to work on an ECF for her. She will be discharged in stable condition. Lab Data Labs: Laboratory Results - last 24 hr 06/13/22 06/13/22 06/13/22 08:05 08:35 08:35 WBC 7.3 RBC 3.70 L Hgb 11.9 L Hct 38.3 MCV 103.5 H MCH 32.2 H MCHC 31.1 L RDW Std Deviation 56.1 H RDW Coeff of Suki 14.6 Plt Count 160 MPV 9.1 Immature Gran % (Auto) 0.300 Neut % (Auto) 67.4 Lymph % (Auto) 20.5 [place] % (Auto) 7.9 Eos % (Auto) 3.6 Baso % (Auto) 0.3 Absolute Neuts (auto) 4.9 Absolute Lymphs (auto) 1.50 Nucleated RBC % 0 Sodium 141 Potassium 3.9 Chloride 104 Carbon Dioxide 32.0 Anion Gap 5 BUN 17 Creatinine 1.43 H Estim Creat Clear Calc 32.26 Est GFR (MDRD) Af Amer 48 L Est GFR (MDRD) Non-Af 40 L BUN/Creatinine Ratio 11.9 Glucose 91 Calcium 9.4 Total Bilirubin 0.50 AST 26 ALT 25 Alkaline Phosphatase 127 H Total Protein 7.1 Albumin 3.6 Globulin 3.5 Albumin/Globulin Ratio 1.0 Urine Color Yellow Urine Clarity Sl. Cloudy Urine pH 7.0 Ur Specific [place] 1.010 Urine Protein 15 H Urine Glucose (UA) Normal Urine Ketones 5 H Urine Occult Blood 25 H Urine Nitrite Negative Urine Bilirubin Negative Urine Urobilinogen Normal Ur Leukocyte Esterase 25 H Urine RBC 0-5 SEEN Urine WBC 0-5 SEEN Ur Squamous Epith Cells 0-5 SEEN Urine Bacteria 1+ Hyaline Casts 0-5 SEEN Urine Mucus 0 SEEN Radiography Diagnostic Testing: Clinical Impression(s) from Imaging Studies Brain CT 06/13/22 08:03 IMPRESSION: Normal unenhanced CT scan of the brain. Electronically Signed: Roger Barker MD at 9:53 EST , Cervical Spine CT 06/13/22 08:03 IMPRESSION: Multilevel degenerative changes, as described above. Electronically Signed: Roger Barker MD at 10:02 EST , Pelvis X-Ray 06/13/22 08:09 IMPRESSION: Osteoarthritis of the hip joints more prominent on the right side. Status post pinning of the left femoral neck and left femoral neck. Electronically Signed: Roger Barker MD at 9:55 EST , Chest X-Ray 06/13/22 09:10 IMPRESSION: Lungs are clear. No acute abnormality is seen. Electronically Signed: Roger Barker MD at 9:54 EST , EKG Initial EKG: Comments: Sinus rhythm with a rate of 76. Normal [place] interval. QTC is slightly prolonged at 501. No ischemic changes. Interpreted by emergency Dr. Discharge Plan Triage Chief Complaint: Fall ED Provider: Aman Dukes Dx/Rx/DC Orders Clinical Impression: Generalized weakness, Falls, Dementia Instructions: ED Fall with Uncertain Cause Prescriptions: No Action ondansetron HCl [Zofran] 4 mg tablet 4 mg PO Q6H PRN (Reason: Nausea) trazodone 100 mg tablet 100 mg PO QHS Label Comments: sleep sertraline 100 MG tablet 200 mg PO DAILY lamotrigine 100 MG tablet 200 mg PO BID albuterol sulfate 2.5 mg /3 mL (0.083 %) Solution For Nebulization 2.5 mg inhalation Q2H PRN PRN (Reason: Dyspnea, wheezing) Qty: 3 0RF Anoro Ellipta 62.5-25 mcg/actuation blister with device 1 inh inhalation DAILY aripiprazole 10 mg tablet 10 mg PO DAILY omeprazole 40 mg capsule,delayed release(DR/EC) 40 mg PO DAILY acetaminophen 500 mg Tablet 1,000 mg PO BID PRN (Reason: Pain) allopurinol 300 mg tablet 300 mg PO DAILY@1200 Eliquis 5 mg Tablet 5 mg PO BID Qty: 60 0RF atorvastatin 10 mg Tablet 10 mg PO QHS donepezil 10 mg Tablet 10 mg PO DAILY benztropine 0.5 mg Tablet 0.5 mg PO TID furosemide 40 mg tablet 40 mg PO DAILY meloxicam 7.5 mg tablet 7.5 mg PO DAILY potassium chloride 20 mEq tablet,ER particles/crystals 20 meq PO BID magnesium oxide 400 mg (241.3 mg magnesium) tablet 400 mg PO BID cyanocobalamin (vitamin B-12) 1,000 mcg/mL solution 1,000 mcg IM QMONTH ferrous sulfate 325 mg (65 mg iron) Tablet 325 mg PO DAILY docusate sodium [Stool Softener] 100 mg capsule 100 mg PO DAILY folic acid 1 mg tablet 1 mg PO DAILY gabapentin 100 mg capsule 100 mg PO TID Primary Care Provider: Hua Mosher Referrals: Hua Mosher MD [Primary Care Provider] - 2 Days Disposition Disposition: Home, Self Care
[2022-06-13 08:07] VITALS: O2SAT 99
--- NOTE | 2022-06-13 08:09 | RAD_ITS ---
STUDY: X-RAY - PELVIS REASON FOR EXAM: Female, 62 years old. Trauma TECHNIQUE: One view of the pelvis was obtained. COMPARISON: Comparison is made with prior study dated 10/27/2021. FINDINGS: A moderate amount of fecal material is seen in the colon. Normal visualized soft tissue structures. Normal bilateral iliac wings, sacroiliac joints and visualized sacrum. Normal visualized bilateral superior and inferior pubic rami. Normal pubic symphysis. Normal ischial tuberosities. Normal visualized right femoral head. Normal right acetabulum. There is moderate articular joint space narrowing of the right hip. The patient is status post pinning of the left femoral neck and head. Normal left acetabulum. There is mild articular joint space narrowing of the left hip. RAD/Pelvis 1 or 2 Views IMPRESSION: Osteoarthritis of the hip joints more prominent on the right side. Status post pinning of the left femoral neck and left femoral neck. Electronically Signed: Roger Barker MD at 9:55 EST ,
[2022-06-13 08:17] LABS: Mucous, Urine 0 SEEN /hpf (<or=2+)
[2022-06-13 08:21] LABS: Color, Urine Yellow (Yellow); Glucose, Dipstick Normal (Normal); Ketone-Dipstick 5 mg/dl (Negative); Leukocyte Esterase-Dipstick 25 /ul (Negative); Nitrite-Dipstick Negative (Negative); Occult Blood-Urine 25 /ul (Negative); Protein-Dipstick 15 mg/dl (Negative); Urine Bilirubin Dipstick Negative (Negative); Urine Clarity Sl. Cloudy (Clear); Urine Urobilinogen Normal (Normal)
[2022-06-13 08:31] LABS: Bacteria 1+ /hpf (None Seen); Hyaline Cast 0-5 SEEN /lpf (0-5); Red Blood Cells-Urine 0-5 SEEN /hpf (0-5); Squamous Epithelial Cells - UA 0-5 SEEN /hpf (5-10); White Blood Cells 0-5 SEEN /hpf (0-5)
[2022-06-13 08:47] LABS: Absolute Neutrophil Count 4.9 X10^3/uL (2.0-7.7); Basophil# 0.02 X10^3/uL; Basophil% 0.3 % (0-1); Eosinophil# 0.26 X10^3/uL; Eosinophils% 3.6 % (0-5); Hematocrit 38.3 % (37-47); Hemoglobin 11.9 g/dL (12.0-15.0); Lymphocyte % 20.5 % (19-41); Mean Corp Hgb Conc 31.1 g/dL (32-36); Mean Corpuscular Hgb 32.2 pg (27.0-32.0); Mean Corpuscular Volume 103.5 fL (81-99); Mean Platelet Vol. 9.1 fl (6.2-12.0); Monocyte# 0.58 X10^3/uL; Monocyte% 7.9 % (0-10); NRBC Flagged by Analyzer 0 % (0-5); Neutrophil # 4.94 X10^3/uL (2.7-7.7); Neutrophil % 67.4 % (47-70); Platelet Count 160 K/mm3 (150-450); RBC Distribution Width CV 14.6 % (11.6-14.6); RBC Distribution Width SD 56.1 fl (35.1-43.9); White Blood Count 7.3 K/mm3 (4.4-11.0)
[2022-06-13 09:03] LABS: AST(SGOT) 26 U/L (15-37); Alanine Aminotransfer ALT/SGPT 25 U/L (13-56); Albumin, Serum 3.6 g/dL (3.2-5.0); Alkaline Phosphatase 127 U/L (45-117); Anion Gap 5 (5-15); BUN 17 mg/dL (7-18); BUN/Creat Ratio 11.9 RATIO (10-20); Calcium,Total 9.4 mg/dL (8.5-10.1); Chloride 104 mmol/L (98-107); Creatinine, Serum 1.43 mg/dL (0.55-1.02); EST Glomerular Filtration Rate 40 mL/min (>60); Est Glom Filt Rate - Afr Amer 48 mL/min (>60); Estimated Creatinine Clearance 32.26 ml/min; Globulin 3.5 g/dL (2.2-4.2); Glucose 91 mg/dL (74-106); Potassium 3.9 mmol/L (3.5-5.1); Protein, Total 7.1 g/dL (6.4-8.2); Sodium Level 141 mmol/L (136-145)
--- NOTE | 2022-06-13 09:10 | RAD_ITS ---
STUDY: X-RAY CHEST REASON FOR EXAM: Female, 62 years old. Weakness TECHNIQUE: Single AP portable view of the chest. COMPARISON: Comparison is made with prior chest radiograph dated 12/23/2021. FINDINGS: EKG electrodes are seen. The lungs are clear and expanded. There is no demonstrated pleural abnormality. Normal size heart. Normal mediastinum and praveen. Normal visualized pulmonary arteries. There is atherosclerotic calcification of the aortic arch with tortuosity. There are degenerative changes of the visualized thoracic spine. Prior fusion in the lower cervical spine. There is no demonstrated abnormality of the visualized soft tissue structures of the upper abdomen. RAD/Chest 1 View (Portable) IMPRESSION: Lungs are clear. No acute abnormality is seen. Electronically Signed: Roger Barker MD at 9:54 EST ,
[2022-06-13 09:33] VITALS: BP 124/69; PULSE 69; RESP 13; O2SAT 100
[2022-06-13 10:43] VITALS: BP 121/69; PULSE 74; RESP 18; O2SAT 100
== END 2022-06-13 10:43 | disposition home or self-care (01) ==
PROVIDERS: Emergency Provider Emergency Medicine; PCP Family Medicine; Visit Provider Emergency Medicine
DX: S00.31XA Abrasion of nose, initial encounter (principal); F03.90 Unspecified dementia, unspecified severity, without behavioral disturbance, psychotic disturbance, mood disturbance, and anxiety; J43.9 Emphysema, unspecified; F39 Unspecified mood [affective] disorder; E11.22 Type 2 diabetes mellitus with diabetic chronic kidney disease; E11.42 Type 2 diabetes mellitus with diabetic polyneuropathy; D69.6 Thrombocytopenia, unspecified; N18.30 Chronic kidney disease, stage 3 unspecified; R53.1 Weakness; E78.5 Hyperlipidemia, unspecified; F17.210 Nicotine dependence, cigarettes, uncomplicated; Z60.2 Problems related to living alone; I12.9 Hypertensive chronic kidney disease with stage 1 through stage 4 chronic kidney disease, or unspecified chronic kidney disease; M54.9 Dorsalgia, unspecified; W19.XXXA Unspecified fall, initial encounter; Y92.098 Other place in other non-institutional residence as the place of occurrence of the external cause; R62.7 Adult failure to thrive; Z79.01 Long term (current) use of anticoagulants; Z79.899 Other long term (current) drug therapy; G89.29 Other chronic pain; G47.33 Obstructive sleep apnea (adult) (pediatric); Z86.711 Personal history of pulmonary embolism
CPT/HCPCS: 70450; 71045; 72125; 72170; 80053; 81001; 85025; 93005; 96360; 99285; J7040; A4216

== ENCOUNTER → 2024-01-07 | Outpatient (CLI) | payer MEDICARE, MEDICAID, SELFPAY ==
--- NOTE | 2024-01-07 13:08 | NEURO ---
NCS and/or EMG Patient Report Ordering Doctor: Kael Mathews DATE OF SERVICE: 01/07/24 Clinical Summary: 63 year old female patient with symptoms of numbness and tingling in the left hand. Nerve Conduction Studies Summary: The left median-D2 SNAP distal latency was prolonged with reduced amplitude. The left median motor conduction velocity was reduced in the forearm segment. Needle Examination Summary: Needle examination of select muscles of the left upper extremity was normal. 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
== END | disposition home or self-care (01) ==
LOC: PSN 12:15
PROVIDERS: PCP Internal Medicine; Referring Provider Orthopaedic Surgery; Visit Provider Orthopaedic Surgery
DX: R20.2 Paresthesia of skin (principal)
CPT/HCPCS: 95886; 95910

== ENCOUNTER 2024-03-17 10:22 | Day surgery (SDC) | payer MEDICARE, MEDICAID, SELFPAY ==
[2024-03-17] VITALS (7 sets, daily range): BP systolic 91–126; BP diastolic 59–87; PULSE 80–85; RESP 16; TEMP 36.1–36.6; O2SAT 94–98; BMI 28.0
--- NOTE | 2024-03-17 10:31 | HP.PCM_ITS ---
History and Physical Date of Admission: 03/17/24 ASIM JOSHI, is a 64 F who presents to the office today for follow up. Asim established with this clinic 08.18.21. Reported weight loss of 85lbs over an 18 month period with multiple hospitalizations during this period. She was admitted to [facility] 07.15.21 following hospitalization at [facility] for MRSA UTI, sepsis, VILMA, electrolyte imbalance, hypoalbuminemia and anemia. Gastrointestinal diagnoses GERD, diverticulosis, vascular disorder of intestine, hiatal hernia. Additional history of fibromyalgia, spinal fusion, anxiety, monoarthritis, hyperparathyroidism, migraine, radiculopathy, muscle wasting, encephalopathy, bipolar, depression, HTN, CKD III, DMII with neuropathy, LATA, COPD, hypoalbuminemia, seizure disorder. CT abd/pel 05.18.21 ? finding small hiatal hernia with mild fecal retention in distal colon. Barium Swallow 03.16.21 ? with recommendation made for puree solids and thin liquids. EGD and colonoscopy performed 10.03.20. EGD found LA grade A reflux esophagitis; benign appearing esophageal stenosis, dilated; gastritis; erythematous duodenopathy with inflammation. Biopsy revealed esophageal inflammation with metaplasia and without dysplasia. H.Pylori negative, Ki-67 positive. Colonoscopy found four 1-2mm hyperplastic, tubular adenoma and serrated adenoma polyps; diverticulosis in recto-sigmoid colon and sigmoid colon. Plan last visit 08.18.21: Anemia ? macrocytosis as seen by biochemical workup. Recommend further biochemical testing. Ataxia ? chronic ataxia with falling. No signs of liver cirrhosis or disease which may lead to hepatic encephalopathy. Failure to thrive ? decreased albumin level likely secondary to nutrition deficit. Recommend increased Kcal diet with protein supplements. Recommend EGD and colonoscopy for signs of neuropathy. Recommend stool for alpha-1 antitrypsin. OV 3..22 Reports that she is doing well since last visit. Feels her energy level is improving with time. Denies symptoms that require improvement. She is discharging from [facility] this upcoming Sunday when she will return home. Unsure whether she will be discharging with PT/OT/ST or home health services. OV 7..24- Pt reports her swallowing issues have returned. Continues to take Omeprazole 20mg BID. ROS Const Constitutional: No fatigue, fever(s) or weight change ENT ENT: No difficulty swallowing Gastro GI: No abdominal pain, belching, bloating, change in bowel habits, change in stool character, coffee ground emesis, constipation, cramping, diarrhea, heartburn, difficulty swallowing, feeling full early, excessive flatus, incontinent of stools, Vomiting blood/hematemesis, Blood in stool, loose stools, Black,tarry stools, nausea/dyspepsia, pain with swallowing, vomiting or other Musc Musculoskeletal: No joint pain Skin Skin: No yellowing of the eye or itchy eyes Psych Psychiatric: No anxiety and No depression Endo Endocrine: No fatigue or weight change Aller/Imm Allergy/Immunologic: No itchy eyes Shamar/Lymp Hematologic/Lymphatic: No easy bleeding or easy bruising Exam Const General: cooperative and comfortable Nutritional Appearance: average body habitus and well nourished HENMT Head: normal to inspection Ears: hearing grossly normal bilaterally Nose: external nose normal Face and sinus: normal facial exam Mouth: oral mucosae normal Throat: posterior oropharynx normal Eyes General: appearance normal, both eyes and all related structures Neck Neck: normal visual inspection Chest Chest palpation & inspection: normal inspection of the chest and normal palpation of entire chest wall Resp Effort & Inspection: normal respiratory effort Auscultation: Bilateral: Clear to Auscultation Cardio Palpation: normal PMI Rate: regular rate Rhythm: regular rhythm GI Inspection: normal to inspection Auscultation: normal bowel sounds Percussion: normal to percussion Palpation: no hepatosplenomegaly Skin General: no rashes or lesions noted Neuro General: patient alert Extrem General: normal to inspection Psych Affect: normal affect Assessment and Plan Assessment and Plan (1) Dysphagia: Plan: She has a hiatal hernia and she is known to have an esophageal stricture. We will perform an upper endoscopy and evaluate her esophagus and perform esophageal dilation. (2) Anemia: Plan: She needs to get her iron, TIBC, ferritin, reticulocyte count and CBC rechecked. She is not showing any signs of GI bleeding at this time. On her upper endoscopy she was discovered to have some gastritis and healed gastric ulcers along with Chin's esophagus. She remain on PPI therapy. She does not know the status of her anticoagulation. I told her she needs to discuss that with cardiology to see if it is really necessary at this time due to her history of iron deficiency anemia suspected from GI bleed. Her lower endoscopy had showed multiple polyps that were removed. 1 which was a sessile serrated adenoma. I told the patient that she need to have a closer follow-up with an colonoscopy in 3 years. (3) Ataxia: Status: Resolved Plan: Ataxia is improved. Her strength is improved. Her weight is improving. She feels a lot better on her feet and a lot more stable. (4) Adult failure to thrive: Plan: She will continue protein supplements and monitoring her diet. Her BMI is up to 21 at this time. Previously it was down at 18. She is doing very well from that standpoint. She will follow up in office in approximately 3 months. I have examined the patient and the H&P has been reviewed. There are no clinical changes since date of exam.
[2024-03-17] MEDS: Lactated Ringers 1,000 ML 15 ML IV (11:04)
--- NOTE | 2024-03-17 11:22 | PCM.PRE.AN2 ---
ASA Classification* ASA Classification ASA Classification: 3 Assessment & Plan Anesthesia* Anesthesia Assessment Anesthesia Assessment: Discussed sedation and/or anesthesia options, risks, benefits, and alternatives with patient/parents/legal guardian/POA. Questions invited. The patient/parents/legal guardian/POA seems to understand and agrees to proceed with anesthesia plan. Reviewed the physical assessment, medical history, allergy history and patient home medications list prior to surgery/procedure/anesthetic and documented any changes. Performed airway and anesthesia risk assessments. Anesthesia Type Anesthesia Type: MAC History Source History Obtained from:: Patient and Chart Anesthesia Focused Assessment* Temperature: 97.9 F Pulse Rate: 80 Blood Pressure: 126/77 Respiratory Rate: 16 Pulse Ox: 98 Oxygen Delivery Method: Room Air Airway Assessment Mouth opens: >3 cm Mallampati Score: I Teeth Condition: Missing (Patient is edentulous) Neck Range of motion (ROM): Limited ROM Pertinent Findings EKG Pertinent Findings:: Jun 13, 2022. Normal sinus rhythm. Prolonged QT. No change since March 2021 Stress Test Pertinent Findings:: 10/01/17. Normal stress test. EF 71% ECHO Pertinent Findings:: . EF=60% Focused Labs Anesthesia Preop lab: CBC WBC 7.3 K/mm3 (4.4-11.0) 06/13/22 08:35 RBC 3.70 M/mm3 (4.2-5.4) L 06/13/22 08:35 Hgb 11.9 g/dL (12.0-15.0) L 06/13/22 08:35 Hct 38.3 % (37-47) 06/13/22 08:35 Plt Count 160 K/mm3 (150-450) 06/13/22 08:35 CHEMISTRY Potassium 3.9 mmol/L (3.5-5.1) 06/13/22 08:35 Sodium 141 mmol/L (136-145) 06/13/22 08:35 Magnesium 2.1 mg/dL (1.6-2.6) 12/12/21 16:49 Phosphorus 3.4 mg/dL (2.5-4.9) 06/02/21 05:40 BUN 17 mg/dL (7-18) 06/13/22 08:35 Creatinine 1.43 mg/dL (0.55-1.02) H 06/13/22 08:35 Glucose 91 mg/dL (74-106) 06/13/22 08:35 POC Glucose 139 mg/dL (74-106) H 12/19/21 11:08 TSH 0.74 uIU/mL (0.358-3.74) 03/16/22 12:56 COAG PT 12.9 SECONDS (11.7-14.9) 06/01/21 15:30 Pre-Assessment Diagnosis/Proposed Procedure Planned Operative Procedure(s): egd Anesthesia History Anesthesia History - retirement sales consultant: Anesthesia History - retirement sales consultant Hx Hospitalization No 03/13/24 15:45 Any Problems With Anesthesia No 03/13/24 15:45 Cholinesterase deficiency No 09/30/21 12:20 You/Your Family Experience No 03/13/24 15:45 fever (hyperthermia) with Relationship Recent Exposure to Contagious No 03/17/24 10:53 Disease Does patient have nerve No 03/13/24 15:45 stimulator Patient instructed to have device shut off --Does patient have Pacemaker No 03/17/24 10:53 or ICD? When Was Last Pacemaker Check QUESTION #4 FULL TEXT: You/Your Family Experience fever (hyperthermia) with Anesthesia Last Oral Intake Last Oral intake: Last Oral Intake NPO since 07:00 03/17/24 10:53 Meds taken in AM with sips of Yes 03/17/24 10:53 water? Meds patient instructed to take am of surgery PONV PONV - retirement sales consultant: PONV - retirement sales consultant Female Yes 03/13/24 15:45 HX of Motion Sickness No 03/13/24 15:45 HX of N/V After Surgery No 03/13/24 15:45 Non-Smoker No 03/13/24 15:45 Duration of Surgery greater No 03/13/24 15:45 than 60 minutes Number of Risk Factors 1 03/13/24 15:45 PONV Score Low Risk 03/13/24 15:45 Height & Weight Height & Weight: Anesthesia: Height & Weight Height 5 ft 4 in 03/17/24 10:53 Weight: 74 kg 03/17/24 10:53 Body Mass Index (BMI) 28.0 03/17/24 10:53 Respiratory Assessment Respiratory Assessment - retirement sales consultant: Respiratory Tract Infection Hx - retirement sales consultant Hx Respiratory Tract Infection No 03/13/24 15:45 STOP Sleep Apnea STOP Sleep Apnea - retirement sales consultant: STOP Sleep Apnea - retirement sales consultant Hx Hypertension Yes 03/13/24 15:45 Hx Sleep Apnea Yes 03/13/24 15:45 CPAP Yes 03/13/24 15:45 BIPAP No 03/13/24 15:45 Do you snore loudly (louder than talking or can be heard Do you often feel tired/ fatigued/ sleepy during daytime? Has anyone observed you stop breathing during sleep? STOP Results Positive 03/13/24 15:45 QUESTION #5 FULL TEXT : Do you snore loudly (louder than talking or can be heard through closed doors)? 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 Specify any problems Hx of Preganancy in last 3 N/A 03/13/24 15:45 Months Nurse Filling Out Transfusion NBUCHER 03/13/24 15:45 & Questions: Date: 03/13/24 03/13/24 15:45 Time: 15:48 03/13/24 15:45 Patient unable to answer at this time (ie. confused, unrespo /Reproduction History /Reproductive History - retirement sales consultant: /Reproductive Hx- retirement sales consultant Hx Now No 03/13/24 15:45 Gestational Age (in weeks): EDC: Hx Hx Para Hx Section SAB No 03/13/24 15:45 Active Medications Active Medications: Current Medications Generic Name Dose Route Start Last Admin Trade Name Freq PRN Reason Stop Dose Admin Lactated Ringer's 1,000 mls @ 15 mls/hr 03/17/24 10:45 03/17/24 11:04 IV 15 mls/hr .Q48H TIFFANIE Administration PFSH Medical History Alzheimer disease Thyroid disease Gout Injury of head and neck Hypertension History of heart attack Dysphagia History of diabetes mellitus Chronic anticoagulation Inability to perform activities of daily living Esophageal stenosis History of shoulder fracture Nicotine dependence, cigarettes, uncomplicated Status post closed fracture of left hip Adult failure to thrive Normal colonoscopy Closed fracture of left hip Wears partial dentures Wears glasses Diabetes Walker as ambulation aid Arthritis History of renal disease Anemia Back pain Injury of back Migraine headache History of hiatal hernia Gastric reflux Former smoker Sleep apnea Emphysema, unspecified On home oxygen therapy Shortness of breath on exertion History of pain when walking History of stress test History of echocardiogram Cardiology follow-up encounter Type 2 DC (myocardial infarction) Thrombocytopenia Pulmonary embolism Elevated troponin Acute respiratory failure with hypoxia and hypercapnia Depression Smoker CPAP (continuous positive airway pressure) dependence Smoking greater than 30 pack years Nicotine dependence, cigarettes, uncomplicated LATA (obstructive sleep apnea) Peripheral neuropathy Gallbladder sludge Stage 2 moderate COPD by GOLD classification Diverticulosis Gastro-esophageal reflux disease without esophagitis Cervical radiculitis Fibromyalgia Chest pain CKD (chronic kidney disease) stage 3, GFR 30-59 ml/min Chronic back pain Diabetes mellitus, type II Hypertension Tobacco use Hyperlipidemia Anxiety COPD (chronic obstructive pulmonary disease) Home Medications ?Medication ?Instructions ?Recorded ?Last Taken ?Type albuterol sulfate 2.5 mg/3 mL 2.5 mg (3 mL) inhalation Q2H PRN 03/19/21 05/23/21 Rx (0.083 %) solution for nebulization PRN Dyspnea, wheezing #3 mL aripiprazole 10 mg tablet 10 mg PO DAILY Check with primary 05/18/21 12/23/21 History doctor umeclidinium 62.5 mcg-vilanterol 1 inh inhalation DAILY copd 05/18/21 03/17/24 History 25 mcg/actuation powdr for inhalation (Anoro Ellipta) acetaminophen 500 mg tablet 1,000 mg PO BID PRN Pain 06/01/21 06/01/21 History apixaban 5 mg tablet (Eliquis) 5 mg PO BID #60 tabs 06/04/21 12/23/21 Rx atorvastatin 10 mg tablet 10 mg PO QHS cholesterol 12/23/21 12/22/21 History docusate sodium 100 mg capsule 100 mg PO BID 06/13/22 Unknown History (Stool Softener) quetiapine 100 mg tablet (Seroquel) 100 mg PO DAILY 01/14/24 03/17/24 History quetiapine 50 mg tablet (Seroquel) 50 mg PO DAILY 01/14/24 Unknown History allopurinol 100 mg tablet 100 mg PO DAILY 03/13/24 Unknown History carboxymethylcellulose sodium 1 % 1 drp EACH EYE Q6H 03/13/24 Unknown History eye liquid gel drops (Refresh Liquigel) celecoxib 200 mg capsule 200 mg PO DAILY 03/13/24 Unknown History cyclosporine 0.05 % eye drops in a 1 drp ophthalmic (eye) Q12H 03/13/24 Unknown History dropperette (Restasis) furosemide 20 mg tablet 20 mg PO QODAY 03/13/24 Unknown History gabapentin 300 mg capsule 300 mg PO BID 03/13/24 03/17/24 History lamotrigine 150 mg tablet 150 mg PO DAILY 03/13/24 03/17/24 History omeprazole 20 mg capsule,delayed 20 mg PO BID 03/13/24 03/17/24 History release polyethylene glycol 3350 17 17 g PO DAILY PRN constipation 03/13/24 Unknown History gram/dose oral powder (Miralax) potassium chloride 10 mEq 10 meq PO DAILY 03/13/24 Unknown History tablet,extended release(part/cryst) Allergy/AdvReac Type Severity Reaction Status Date / Time No Known Allergies Allergy Verified 03/17/24 10:51 Family History Mother Hypertension Father Hypertension Diabetes Surgical History Hx of surgical procedure Hx of hernia repair History of shoulder surgery Hx of cholecystectomy History of tubal ligation History of colonoscopy (~12/05/17) history EGD with ph probe (~12/09/17) History of repair of hiatal hernia Cervical vertebral fusion Social History household members: none number of children: 2 other: Currently lives alone and uses a wheeled walker to ambulate Smoking Status: Current every day smoker tobacco type: cigarettes alcohol intake: never substance use type: does not use caffeine: No what type of physical activity do you participate in: none additional social history: Brody, her son is reported to be her guardian Review of Systems (Anesthesia) ROS Narrative System reviewed and no additional complaints, except as documented.
[2024-03-17 11:25] LABS: Bedside Glucose 113 mg/dL (74-106)
--- NOTE | 2024-03-17 12:12 | OP.EGD_ITS ---
Patient Name: Asim Fisher Procedure Date: 03/17/2024 11:41 AM Date of : 1960 Age: 64 Procedure: Upper GI endoscopy Indications: Dysphagia Providers: Peyman Peoples DO Medicines: Monitored Anesthesia Care Patient Profile: This is a 64 year old female. Refer to note in patient chart for documentation of history and physical. Patient has symptoms of acute dysphagia. Complications: No immediate complications. Procedure: Pre-Anesthesia Assessment: - Prior to the procedure, a History and Physical was performed, and patient medications and allergies were reviewed. The patient is competent. The risks and benefits of the procedure and the sedation options and risks were discussed with the patient. All questions were answered and informed consent was obtained. Patient identification and proposed procedure were verified by the physician in the pre-procedure area. Mental Status Examination: alert and oriented. Airway Examination: normal oropharyngeal airway and neck mobility. Respiratory Examination: clear to auscultation. CV Examination: normal. Prophylactic Antibiotics: The patient does not require prophylactic antibiotics. Prior Anticoagulants: The patient has taken no anticoagulant or antiplatelet agents except for NSAID medication. ASA Grade Assessment: III - A patient with severe systemic disease. After reviewing the risks and benefits, the patient was deemed in satisfactory condition to undergo the procedure. The anesthesia plan was to use monitored anesthesia care (MAC). Immediately prior to administration of medications, the patient was re-assessed for adequacy to receive sedatives. The heart rate, respiratory rate, oxygen saturations, blood pressure, adequacy of pulmonary ventilation, and response to care were monitored throughout the procedure. The physical status of the patient was re-assessed after the procedure. After obtaining informed consent, the endoscope was passed under direct vision. Throughout the procedure, the patient's blood pressure, pulse, and oxygen saturations were monitored continuously. The Endoscope was introduced through the mouth, and advanced to the second part of duodenum. The upper GI endoscopy was accomplished without difficulty. The patient tolerated the procedure well. Scope In: 12:00:52 PM Scope Out: 12:05:23 PM Total Procedure Duration Time 0 hours 4 minutes 31 seconds Findings: LA Grade A (one or more mucosal breaks less than 5 mm, not extending between tops of 2 mucosal folds) esophagitis with no bleeding was found 34 to 37 cm from the incisors. The examined esophagus was moderately tortuous. Evidence of a fundoplication was found in the gastric fundus. The wrap appeared intact. This was traversed. A large amount of food (residue) was found in the gastric body. No gross lesions were noted in the duodenal bulb. Impression: - LA Grade A reflux esophagitis with no bleeding. - Tortuous esophagus. - A fundoplication was found. The wrap appears intact. - A large amount of food (residue) in the stomach. - No gross lesions in the duodenal bulb. - No specimens collected. Recommendation: - Discharge patient to home. - Resume previous diet. - Continue present medications. Procedure Code(s): --- Professional --- 60410, Esophagogastroduodenoscopy, flexible, transoral; diagnostic, including collection of specimen(s) by brushing or washing, when performed (separate procedure) CPT copyright 2021 [employer]. All rights reserved. The codes documented in this report are preliminary and upon materials supervisor review may be revised to meet current compliance requirements. Peyman Peoples DO 03/17/2024 12:11:43 PM This report has been signed electronically. Number of Addenda: 0 Note Initiated On: 03/17/2024 11:41 AM
--- NOTE | 2024-03-17 12:12 | OP.CCLET_ITS ---
03/17/2024 Juan C Santos Re : Upper GI endoscopy procedure for Asim Fisher Dear Danielle This procedure was performed on Sunday, March 17, 2024. My impressions and recommendations are as follows: Impressions : - LA Grade A reflux esophagitis with no bleeding. - Tortuous esophagus. - A fundoplication was found. The wrap appears intact. - A large amount of food (residue) in the stomach. - No gross lesions in the duodenal bulb. - No specimens collected. Recommendations : - Discharge patient to home. - Resume previous diet. - Continue present medications. My findings are described in the full procedure note, which is enclosed. If I can be of further assistance, please feel free to contact me at . Sincerely, Peyman Friend, 03/17/2024 12:11:43 PM This report has been signed electronically.
--- NOTE | 2024-03-17 12:15 | PCM.POST.ANE ---
Anesthesia: Postop Eval I Current Vital Signs Temperature: 97.6 F Pulse Rate: 85 Blood Pressure: 91/60 Respiratory Rate: 16 Pulse Ox: 95 Oxygen Delivery Method: Room Air Assessment Airway patent: Yes Spontaneous unlabored respirations: Yes Mental status: Asleep nausea: No Vomiting: No Anesthesia Complication: Yes Anesthesia Complication Comment:: in situ IV infiltrared, 2nd IV started Fluid Hydration Crystalloid volume administer (ml): 400 Total IV fluid infused: 400 Progress Note Anesthesia document: Postop Eval 1 completed: Yes
--- NOTE | 2024-03-17 13:59 | PCM.POSTANE2 ---
Anesthesia Postop Eval I Sum Postop Eval Completion status Anesthesia document: Postop Eval 1 completed: Yes Anesthesia Postop Eval I Summary Anesthesia Postop Eval I Summary: Anesthesia Postop Eval I: Assessment Summary Airway patent Yes 03/17/24 12:16 [email or web address] Spontaneous unlabored Yes 03/17/24 12:16 [email or web address] respirations Mental status Asleep 03/17/24 12:16 [email or web address] nausea No 03/17/24 12:16 [email or web address] Vomiting No 03/17/24 12:16 [email or web address] Anesthesia Postop Eval I: Fluid Summary Crystalloid volume administer 400 03/17/24 12:16 [email or web address] (ml) Colloids volume administered ( ml) Blood Product volume administered (ml) Total IV fluid infused 400 03/17/24 12:16 [email or web address] Anesthesia Postop Eval I: Summary Notes Anesthesia Complication Yes 03/17/24 12:16 [email or web address] Anesthesia Complication in situ IV 03/17/24 12:16 [email or web address] Comment: infiltrared, 2nd IV started Post-operative progress note Anesthesia: Postop Eval II Evaluation Mental status: Awake and Calm Pain Level: 0 nausea: No Vomiting: No Complications Anesthesia Complication: No
== END 2024-03-17 13:04 | disposition home or self-care (01) ==
LOC: EN 10:28 → AC 10:28
PROVIDERS: PCP Internal Medicine; Referring Provider Internal Medicine; Visit Provider Internal Medicine Gastroenterology
PROC: 0DJ08ZZ Inspection of Upper Intestinal Tract, Via Natural or Artificial Opening Endoscopic (ICD-10-PCS; CPT 43235; principal; 2024-03-17 11:40)
DX: K21.00 Gastro-esophageal reflux disease with esophagitis, without bleeding (principal); J43.9 Emphysema, unspecified; E11.22 Type 2 diabetes mellitus with diabetic chronic kidney disease; N18.30 Chronic kidney disease, stage 3 unspecified; Z79.01 Long term (current) use of anticoagulants; Z79.899 Other long term (current) drug therapy; I12.9 Hypertensive chronic kidney disease with stage 1 through stage 4 chronic kidney disease, or unspecified chronic kidney disease; E78.5 Hyperlipidemia, unspecified; Z90.49 Acquired absence of other specified parts of digestive tract
CPT/HCPCS: 43235; 82962; J7120; J2405

== ENCOUNTER → 2024-04-10 | Outpatient (CLI) | payer MEDICARE, MEDICAID, SELFPAY ==
--- NOTE | 2024-04-10 10:00 | NM_ITS ---
CLINICAL: 64-year-old female with history of apparent clinical gastroparesis. SEMI-SOLID PHASE 99m Tc SULFUR COLLOID GASTRIC EMPTYING STUDY COMPARISON: None available FINDINGS: The patient was administered 1.1 mCi of 99m Tc sulfur colloid mixed with oatmeal and consumed per os. Image acquisitions in the anterior-posterior projections for a total of 60 minutes. There is prompt visualization of the stomach. There is no gastroesophageal reflux identified. First order kinetics are maintained throughout the duration of the acquisitions. The T ? linear fit was extrapolated to be 125.80 minutes, (Normal: 12-56 minutes). NM/Gastric Emptying Study IMPRESSION: 1. ABNORMAL 99m Tc sulfur colloid semi-solid phase (oatmeal) gastric emptying imaging examination. A. There is delayed semi-solid phase gastric emptying compared to normal controls with maintained first order kinetics throughout all components of the examination. (Angel et al, J Nucl Med Tech 38: 186, 2010). Electronically Signed: Juan Jose Newell DO at 11:34 EDT ,
== END | disposition home or self-care (01) ==
LOC: NM 09:57
PROVIDERS: PCP Internal Medicine; Referring Provider Internal Medicine Gastroenterology; Visit Provider Internal Medicine Gastroenterology
DX: R13.10 Dysphagia, unspecified (principal)
CPT/HCPCS: 78264; A9541

== ENCOUNTER → 2024-05-16 | Outpatient (CLI) | payer MEDICARE, MEDICAID, SELFPAY ==
--- NOTE | 2024-05-16 08:27 | NM_ITS ---
CLINICAL: 64-year-old female with history of clinical gastroparesis. SEMI-SOLID PHASE 99m Tc SULFUR COLLOID GASTRIC EMPTYING STUDY COMPARISON: Previous semisolid phase gastric emptying report dated 04/10/2024 FINDINGS: The patient was administered 1.2 mCi of 99m Tc sulfur colloid mixed with oatmeal and consumed per os. Image acquisitions in the anterior-posterior projections were obtained for 237 minutes. There is prompt visualization of the stomach. There is no gastroesophageal reflux identified. First order kinetics are maintained throughout the duration of the acquisitions. The T ? raw data emptying was calculated to be 218.67 minutes, (Normal: 12-56 minutes) compared to an extrapolated value of 125.80 minutes. NM/Gastric Emptying Study - 4 HR IMPRESSION: 1. ABNORMAL 99m Tc sulfur colloid semi-solid phase (oatmeal) gastric emptying imaging examination. A. There is continued delayed semi-solid phase gastric emptying compared to normal controls. (Angel et al, J Nucl Med Tech 38: 186, 2010). B. Overall compared to the previous examination dated 04/10/2024, there is interim deterioration in semisolid phase emptying as defined above. Electronically Signed: Juan Jose Newell DO at 13:54 EDT ,
== END | disposition home or self-care (01) ==
PROVIDERS: PCP Internal Medicine; Referring Provider Internal Medicine Gastroenterology; Visit Provider Internal Medicine Gastroenterology
DX: K31.84 Gastroparesis (principal)
CPT/HCPCS: 78264; A9541

== ENCOUNTER → 2025-03-04 | Outpatient (CLI) | payer MEDICARE, MEDICAID, SELFPAY ==
[2025-03-04 13:04] LABS: Free T3 2.6 pg/mL (2.18-3.98)
== END | disposition home or self-care (01) ==
LOC: LAB 10:55
PROVIDERS: PCP General Practice; Referring Provider Surgery; Visit Provider Surgery
DX: E04.1 Nontoxic single thyroid nodule (principal)
CPT/HCPCS: 36415; 84439; 84443; 84481